=== PATIENT | male | born 1965 | race Caucasian/White ===

== ENCOUNTER → 2018-01-03 09:34 | Outpatient (CLI) | payer OTHER, SELFPAY ==
[2018-01-03 12:42] LABS: Hemoglobin A1c 5.8 % (4.2-6.3)
[2018-01-03 12:46] LABS: Albumin, Serum 3.7 g/dL (3.2-5.0); BUN 13 mg/dL (7-18); BUN/Creat Ratio 17.5 RATIO (10-20); Creatinine, Serum 0.74 mg/dL (0.70-1.30); EST Glomerular Filtration Rate 119 mL/min (>60); Est Glom Filt Rate - Afr Amer 144 mL/min (>60); Globulin 3.4 g/dL (2.2-4.2); Glucose 100 mg/dL (74-106); Protein, Total 7.1 g/dL (6.4-8.2)
[2018-01-03 12:47] LABS: ALB/GLOB Ratio 1.1 RATIO (0.9-2.4); AST(SGOT) 24 U/L (15-37); Alanine Aminotransfer ALT/SGPT 64 U/L (16-61); Alkaline Phosphatase 62 U/L (45-117); Anion Gap 9 (5-15); Calcium,Total 8.8 mg/dL (8.5-10.1); Chloride 106 mmol/L (98-107); Free T3 2.8 pg/mL (2.18-3.98); Potassium 4.3 mmol/L (3.5-5.1); Sodium Level 139 mmol/L (136-145); T4 Free Direct 1.03 ng/dL (0.76-1.46); Thyroid Stim Hormone (TSH) 1.91 uIU/mL (0.358-3.74)
== END ==
PROVIDERS: Family Provider Family Medicine; PCP Family Medicine; Visit Provider Internal Medicine Endocrinology, Diabetes & Metabolism
DX: E78.5 Hyperlipidemia, unspecified (principal); E05.90 Thyrotoxicosis, unspecified without thyrotoxic crisis or storm; R73.01 Impaired fasting glucose
CPT/HCPCS: 36415; 80053; 83036; 84439; 84443; 84481

== ENCOUNTER → 2018-07-12 15:16 | Outpatient (CLI) | payer OTHER, SELFPAY ==
[2018-07-12 16:54] LABS: T4 Total, Thyroxin 8.5 ug/dL (4.5-12.1); Thyroid Stim Hormone (TSH) 2.44 uIU/mL (0.358-3.74)
== END ==
PROVIDERS: Family Provider Family Medicine; PCP Family Medicine; Visit Provider Internal Medicine Cardiovascular Disease
DX: I48.0 Paroxysmal atrial fibrillation (principal)
CPT/HCPCS: 36415; 84436; 84443

== ENCOUNTER → 2018-07-29 12:50 | Outpatient (CLI) | payer OTHER, SELFPAY | PROVIDERS: Family Provider Family Medicine; PCP Family Medicine; Visit Provider Internal Medicine Cardiovascular Disease | DX: I48.0 Paroxysmal atrial fibrillation (principal); G47.10 Hypersomnia, unspecified | CPT/HCPCS: 93225; 93226; 93306 ==

== ENCOUNTER → 2018-08-01 12:35 | Outpatient (CLI) | payer OTHER, SELFPAY ==
[2018-08-01 13:31] LABS: Anion Gap 5 (5-15); BUN 13 mg/dL (7-18); BUN/Creat Ratio 11.9 RATIO (10-20); Calcium,Total 9.4 mg/dL (8.5-10.1); Chloride 107 mmol/L (98-107); Creatinine, Serum 1.09 mg/dL (0.70-1.30); EST Glomerular Filtration Rate 76 mL/min (>60); Est Glom Filt Rate - Afr Amer 92 mL/min (>60); Glucose 90 mg/dL (74-106); Potassium 4.5 mmol/L (3.5-5.1); Sodium Level 140 mmol/L (136-145)
== END ==
PROVIDERS: Family Provider Family Medicine; PCP Family Medicine; Visit Provider Internal Medicine Cardiovascular Disease
DX: I48.0 Paroxysmal atrial fibrillation (principal)
CPT/HCPCS: 36415; 80048

== ENCOUNTER → 2018-08-03 10:07 | Outpatient (CLI) | payer OTHER, SELFPAY ==
[2018-08-02 14:20] VITALS: BMI 41.4
== END ==
PROVIDERS: Family Provider Family Medicine; PCP Family Medicine; Visit Provider Internal Medicine Cardiovascular Disease
DX: I48.0 Paroxysmal atrial fibrillation (principal); Z53.8 Procedure and treatment not carried out for other reasons; I42.9 Cardiomyopathy, unspecified; E66.01 Morbid (severe) obesity due to excess calories; Z79.01 Long term (current) use of anticoagulants; Z79.02 Long term (current) use of antithrombotics/antiplatelets; Z79.82 Long term (current) use of aspirin; Z79.899 Other long term (current) drug therapy; Z87.891 Personal history of nicotine dependence
CPT/HCPCS: 93005; J7040

== ENCOUNTER → 2018-09-09 20:03 | Outpatient (CLI) | payer OTHER, SELFPAY | PROVIDERS: Family Provider Family Medicine; PCP Family Medicine; Visit Provider Internal Medicine Cardiovascular Disease | DX: G47.10 Hypersomnia, unspecified (principal); I48.0 Paroxysmal atrial fibrillation; E66.9 Obesity, unspecified | CPT/HCPCS: 95810 ==

== ENCOUNTER → 2018-11-01 14:24 | Outpatient (CLI) | payer OTHER, SELFPAY ==
[2018-08-02 14:20] VITALS: BMI 41.4
--- NOTE | 2018-11-01 14:30 | RAD_ITS ---
STUDY: X-RAY - RIGHT HAND REASON FOR EXAM: Pain, hyperextension injury of fingers. TECHNIQUE: 3 view(s) of the hand. COMPARISON: None. FINDINGS: Normal radiocarpal articulation. Normal distal radioulnar joint. Normal visualized carpal bones. Normal carpal articulations Normal carpometacarpal articulation of the thumb. Normal second through fifth carpometacarpal joints. Normal metacarpi. Normal metacarpophalangeal joint of the thumb. Normal interphalangeal joint of the thumb. Normal proximal and distal phalanges of the thumb. There is moderate joint space narrowing of the third metacarpophalangeal joint. Normal proximal and distal interphalangeal joints of the second through fifth fingers. Normal phalanges of the second through fifth fingers. The soft tissue structures are unremarkable. RAD/Hand Min 3 Views IMPRESSION: Arthrosis of the third metacarpophalangeal joint. No demonstrated fracture. Electronically Signed: Christopher Carnes MD at 15:00 EST Tel , Service support ,
--- OUTSIDE RECORDS SUMMARY | 2018-12-18 19:59 | XMS RPT_ITS ---
:1965 Author Organization OHIP Support Name Relationship Address Phone MOISÉS FRAGA Unavailable [address] + [place] [address] S Unavailable Unavailable Unavailable LYSSA SILVA Unavailable Unavailable + [place] [address] TOMEKA MOISÉS Unavailable [address] + [place] [address] TOMEKA LYSSA Unavailable Unavailable + [place] [address] S Unavailable Unavailable Unavailable FRAGA, MOISÉS Unavailable [address] + [place] [address] TOMEKA LYSSA Unavailable Unavailable + [place] [address] S Unavailable Unavailable Unavailable FRAGA, MOISÉS Unavailable [address] + [place] [address] FRAGA, HORTENSIA Unavailable Unavailable + [place] [address] S Unavailable Unavailable Unavailable FRAGA MOISÉS Unavailable [address] + [place] [address] TOMEKA LYSSA Unavailable . + [place] [address] S Unavailable Unavailable Unavailable FRAGA, MOISÉS Unavailable [address] + [place] [address] FRAGA, HORTENSIA Unavailable Unavailable + [place] [address] S Unavailable Unavailable Unavailable FRAGA, MOISÉS Unavailable [address] + [place] [address] FRAGA, HORTENSIA Unavailable Unavailable + [place] [address] S Unavailable Unavailable Unavailable FRAGA, MOISÉS Unavailable [address] + [place] [address] FRAGA, HORTENSIA Unavailable Unavailable + [place] [address] S Unavailable Unavailable Unavailable FRAGA, MOISÉS Unavailable [address] + [place] [address] FRAGA, HORTENSIA Unavailable Unavailable + [place] [address] S Unavailable Unavailable Unavailable FRAGA, MOISÉS Unavailable [address] + [place] [address] FRAGA, HORTENSIA Unavailable Unavailable + [place] [address] S Unavailable Unavailable Unavailable FRAGA, MOISÉS Unavailable [address] + [place] [address] FRAGA, HORTENSIA Unavailable Unavailable + [place] [address] S Unavailable Unavailable Unavailable FRAGA, MOISÉS Unavailable [address] + [place] [address] FRAGA, HORTENSIA Unavailable Unavailable + [place] [address] S Unavailable Unavailable Unavailable FRAGA, MOISÉS Unavailable [address] + [place] [address] FRAGA, HORTENSIA Unavailable . + [place] [address] S Unavailable Unavailable Unavailable FRAGA, MOISÉS Unavailable [address] + [place] [address] FRAGA, HORTENSIA Unavailable Unavailable + [place] [address] S Unavailable Unavailable Unavailable FRAGA, MOISÉS Unavailable [address] + [place] [address] FRAGA, HORTENSIA Unavailable Unavailable + [place] [address] S Unavailable Unavailable Unavailable FRAGA, MOISÉS Unavailable [address] + [place] [address] FRAGA, HORTENSIA Unavailable Unavailable + [place] [address] S Unavailable Unavailable Unavailable FRAGA, MOISÉS Unavailable [address] + [place] [address] S Unavailable Unavailable Unavailable FRAGA, MOISÉS Unavailable [address] + [place] [address] S Unavailable Unavailable Unavailable Care Team Providers Name Role Phone YEMI OTTO Attending Unavailable Danii Chaney Attending Unavailable Kate Gonzalez Referring Unavailable Danii Chaney Attending Unavailable Danii Chaney Referring Unavailable Lisa, Kate Primary Care Unavailable YEMI OTTO Attending Unavailable Lisa, Kate Primary Care Unavailable Chevy, Crowder Attending Unavailable Lisa, Kate Referring Unavailable Chevy, Regino Attending Unavailable Chevy, Regino Referring Unavailable Lisa, Kate Primary Care Unavailable Chevy, Regino Attending Unavailable Chevy, Regino Referring Unavailable Lisa, Kate Primary Care Unavailable Chevy, Regino Attending Unavailable Lisa, Kate Referring Unavailable Lisa, Kate Primary Care Unavailable Chevy, Regino Attending Unavailable Chevy, Crowder Referring Unavailable Lisa, Kate Primary Care Unavailable Chevy, Regino Attending Unavailable Lisa, Kate Primary Care Unavailable Chevy, Crowder Referring Unavailable Chevy, Regino Attending Unavailable Lisa, Kate Referring Unavailable Lisa, Kate Primary Care Unavailable Chevy, Regino Attending Unavailable Lisa, Kate Referring Unavailable Lisa, Kate Primary Care Unavailable Chevy, Regino Attending Unavailable Chevy, Regino Referring Unavailable Lisa, Kate Primary Care Unavailable Chevy, Regino Attending Unavailable Lisa, Kate Referring Unavailable Chevy, Crowder Attending Unavailable Chevy, Regino Referring Unavailable Lisa, Kate Primary Care Unavailable Paulina Tinsley Attending Unavailable Lisa, Kate Referring Unavailable Chevy, Regino Attending Unavailable Chevy, Regino Referring Unavailable Chevy, Crowder Attending Unavailable Chevy, Regino Referring Unavailable Chevy, Crowder Attending Unavailable Lisa, Kate Primary Care Unavailable PROBLEMS PROBLEMS DATE TYPE CONDITION / CODE ATTENDING STATUS SOURCE 12/05/2018 Unknown E05.90 - Chevy, Regino Active [place] Thyrotoxicosis, Community unspecified without Hospital thyrotoxic crisis or Repository storm / E05.90(ICD-10) 12/05/2018 Unknown F17.200 - Nicotine Chevy, Crowder Active [place] dependence, Community unspecified, Hospital uncomplicated / Repository F17.200(ICD-10) 12/05/2018 Unknown G47.10 - Chevy, Crowder Active [place] Hypersomnia, Community unspecified / Hospital G47.10(ICD-10) Repository 12/05/2018 Unknown Q21.1 - Atrial Chevy, Regino Active [place] septal defect / Community Q21.1(ICD-10) Hospital Repository 12/05/2018 Unknown E66.01 - Morbid Chevy, Regino Active [place] (severe) obesity due Community to excess calories / Hospital E66.01(ICD-10) Repository 12/05/2018 Unknown I48.0 - Paroxysmal ChevyRobson andersonril Active [place] atrial fibrillation Community / I48.0(ICD-10) Hospital Repository 11/01/2018 Unknown M79.641 - Pain in Ritu, Active [place] right hand / [facility] M79.641(ICD-10) Hospital Repository 11/01/2018 Unknown G56.31 - Lesion of Ritu, Active [place] radial nerve, right [facility] upper limb / Hospital G56.31(ICD-10) Repository 09/09/2018 Unknown E66.9 - Obesity, ChevyRobson andersonril Active [place] unspecified / Community E66.9(ICD-10) Hospital Repository 08/31/2018 Unknown R00.1 - Bradycardia, Robson Reeceril Active [place] unspecified / Community R00.1(ICD-10) Hospital Repository 07/29/2018 Unknown Z98.890 - Other Chevy, Crowder Active [place] specified Community postprocedural Hospital states / Repository Z98.890(ICD-10) 01/03/2018 Unknown E78.5 - [place], Active [place] Hyperlipidemia, YEMI Community unspecified / Hospital E78.5(ICD-10) Repository PROCEDURES PROCEDURES No Procedure Records FoundRESULTS RESULTS BASIC METABOLIC Collected: 12/02/2018 Status: F Source: [place] PROFILE (BMP) 4:54 PM [facility] REPOSITORY TYPE CODE TESTS RESULT OUT OF RANGE REFERENCE UNITS LAB L501.0100 74-106 mg/dL Normal GLU 84 Result Comment: Please note revised GLUCOSE reference range effective 2017. LAB L501.1000 7-18 mg/dL Normal BUN 14 LAB L501.1100 0.70-1.30 mg/dL Normal CREAT,SERUM 0.87 Result Comment: The validity of the calculated GFR AND GFRAA in patients over 70 years has not been determined. Clinical correlation is essential. LAB L501.1110 >60 mL/min Normal EST GFR 98 Result Comment: Non- GFR Calc LAB L501.1115 >60 mL/min Normal EST GFR - AA 119 Result Comment: GFR Calc LAB L501.1300 10-20 RATIO Normal BUN/CRE 16.1 LAB L501.2200 8.5-10.1 mg/dL CA Normal 9.3 LAB L501.5300 136-145 mmol/L NA Normal 143 LAB L501.5600 3.5-5.1 mmol/L K Normal 4.3 LAB L501.5900 98-107 mmol/L CL Normal 107 LAB L501.6100 21.0-32.0 mmol/L Normal CO2 27.0 LAB L501.6200 5-15 Normal GAP 9 Performed By: #### L500.2500, L501.9520 #### [facility] [address] [place], [place], [address] THYROID STIM HORMONE Collected: 12/02/2018 Status: F Source: [place] (TSH) 4:54 PM [facility] REPOSITORY TYPE CODE TESTS RESULT OUT OF RANGE REFERENCE UNITS LAB L501.9520 0.358-3.74 uIU/mL High TSH 3.90 Performed By: #### L500.2500, L501.9520 #### [facility] [address] [place], [address] CARDIOLOGY VISIT Observed: 12/02/2018 Status: F Source: [place] REPORT 4:34 PM [facility] REPOSITORY [facility] [address] [place] [address] OFFICE VISIT Date of Service: 12/02/18 MR#: [id number] Acct: [id number] Name: FRED FRAGA Rep #: [id number] : 1965 Provider: Regino Reece MD Age/Sex: 53/M [place] [facility] [place] Signed [facility] Chief Complaint: Follow up Details: FRED FRAGA, is a 53 M who presents to the office today for a follow-up visit. He is a gentleman who had presented with an episode of atrial fibrillation approximately 9 years ago and he underwent a ESTHER guided cardioversion. He was asked in a year and half ago and at that time, does get palpitations. Echocardiogram done at that time demonstrated no significant abnormalities the last echocardiogram demonstrated ejection fraction approximately 50%. He does consume a fair amount of caffeinated beverages as well as tobacco use. He also do remember that he did have some thyroid issues for which she was put on methimazole. He does get his TSH checked once a year and is followed by an military science teacher. He had previously been seen and converted back to sinus rhythm. He presented today for follow-up visit feeling well with no complaints no dizziness no diaphoresis no near syncope except for when he got upstairs here. His physical exam demonstrated an irregular regular heart rate and his electrocardiogram confirmed that he was in atrial fibrillation with a rate of 105 bpm and no acute changes. He has remained on the beta-vick as well as the aspirin and Eliquis. 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 Accompanied by: Is patient in pain?: No Allergies No Known Allergies Allergy (Verified 12/02/18 15:43) Medications Methimazole [Tapazole] 5 mg PO DAILY 10/09/13 [History Confirmed 12/02/18] apixaban 5 mg tablet 5 mg PO BID #60 tab 07/29/18 [Rx Confirmed 12/02/18] metoprolol tartrate 50 mg tablet 50 mg PO BID #60 tab 07/29/18 [Rx Confirmed 12/02/18] flecainide 100 mg tablet 100 mg PO Q12H #60 tab 12/02/18 [Rx Confirmed 12/02/18] PFS Medical History Nicotine dependence (Chronic) Patent foramen ovale (Chronic) Morbid (severe) obesity due to excess calories (Chronic) Paroxysmal atrial fibrillation (Chronic) Hyperthyroidism (Chronic) Surgical History History of cardioversion (Resolved 05/30/08) Family History Father Diabetes Hypertension Mother Diabetes Hypertension Social History Smoking Status: Current every day smoker ROS Const Const: Negative for fatigue, weakness, night sweats, excessive sweating, frequent falls, headache(s) or daytime sleepiness Eyes Eyes: Negative for loss of peripheral vision, transient loss of vision, blind spots, double vision or blurry vision ENT ENT: Positive for dizziness; negative for headache(s), balance problems, Nosebleed/epistaxis, tongue swelling or lip swelling Cardio Chest Pain: No Palpitations: No Edema: Bilateral Muscle aches with walking: None Resp Respiratory: Positive for SOB at rest and SOB with activity; negative for SOB orthopnea\SOB lying down, Cough or paroxysmal nocturnal dyspnea GI GI: Negative nausea, vomiting, heartburn, black,tarry stools or bright, red blood in stools : Negative for hematuria Musc Musc: Negative for balance problems, muscle aches/ myalgia, muscle weakness or joint pain Skin Skin: Negative non-healing lesions, unusual bruising or rash Neuro Neuro: Positive for dizziness and lightheadedness; negative for weakness, frequent falls, headache(s), double vision, orthostatic symptoms, blurry vision or lack of coordination Patricio Hematologic/Lymphatic: Negative for easy bruising or easy bleeding Endo Endo: Negative for fatigue, excessive sweating, cold intolerance, heat intolerance, increased thirst/drinking or hair loss Psych Psych: Negative for anxiety or depression Allergy Allergy/Immunology: Negative for throat swelling, Negative for tongue swelling, Negative for hives, Negative for rash, Negative for lip swelling Cardiology Exam Const Appearance: cooperative, healthy appearing, well developed, well groomed and no acute distress Nutritional Appearance: well nourished and average body habitus Orientation: alert, awake and oriented x3 Head Head: normal to inspection, normocephalic and atraumatic Ears: hearing grossly normal bilaterally and external ears normal Nose: external nose normal, nasal mucous membranes and turbinates normal, nares normal, septum normal, no nasal discharge Face and Sinus: face symmetric Mouth: oral mucosae normal, tongue normal, oropharynx normal and moist mucous membranes Teeth and gingiva: dentition normal Throat: posterior oropharynx normal, tonsils normal and uvula midline Eyes General: appearance normal, both eyes and all related structures Eyelids: eyelids normal Conjunctivae: conjunctivae normal Pupils: PERRL, normal by confrontation and accommodation normal EOM: EOM intact bilaterally Neck Neck: normal visual inspection, trachea midline and no JVD JVD: +5 Carotids: normal carotid upstroke and bounding pulses Chest Chest inspection: normal inspection of the chest, symmetric chest movement and normal respiratory effort Auscultation: Bilateral: Clear to Auscultation Cardio Palpation: normal PMI Rhythm: irregular rhythm Heart sounds: S1 normal and S2 normal GI GI: normal to inspection, soft, no hepatosplenomegaly and bowel sounds present Neuro General: alert, awake, oriented x3, no focal sensory deficit, gait normal and moves all extremities Skin Skin: no rashes or lesions noted Extremities Pulses: Normal: Right Femoral Pulse, Left Femoral Pulse, Right Dorsalis Pedis Pulse, Left Dorsalis Pedis Pulse, Right Posterior Tibial Pulse, Left Posterior Tibial Pulse, Right Radial Pulse, Left Radial Pulse Lower Extremity Edema: None: Bilateral Musculoskel Musculoskeletal: No joint tenderness Psych Psychological: normal affect Assessment AND Plan 1. Paroxysmal atrial fibrillation I48.0 Not anticoagulated Received one cardioversion at one time Plan He does have a history of paroxysmal atrial fibrillation. My recommendation at this time will be for him to continue the beta-vick but consider him for DC cardioversion. After that is performed he may benefit from an antiarrhythmic such as flecainide. We will try and arrange this over the next week or so. He can discontinue his aspirin at this time. I have also asked him to check with his military science teacher about his methimazole dose and to evaluate his thyroid function. Orders Orders: 2. Patent foramen ovale Q21.1 with bidirectional shunting per ESTHER Plan He does have a history of patent foramen ovale noted on the ESTHER. He will continue with anticoagulation. Thank you for allowing me to participate in the care of your patient. Please don't hesitate to call if any issues arise Orders Orders: Plan Detail Other Orders Orders: Other Medications New: Discontinued: Coding Level of Care Code Off vis,est,level 4 Diagnoses Paroxysmal atrial fibrillation I48.0 Patent foramen ovale Q21.1 Coding Level of Care Code Off vis,est,level 4 Diagnoses Paroxysmal atrial fibrillation I48.0 Patent foramen ovale Q21.1 Supplemental Info Supplemental Information Diagnostics Electrocardiogram 12/02/18 Echocardiogram 07/29/18 12/02/18 1444 <Electronically signed by Regino Reece MD> Date Regino Reece MD Cosigner Signature: Date (if applicable) CC: Kate Gonzalez MD 12 LEAD EKG PERFORMED Observed: 12/02/2018 Status: F Source: [place] [facility] 4:[address] [facility] [address] [place] [address] 12 Lead EKG performed by [facility] 12/02/181618 MR#: [id number] Acct: [id number] Name: FRED FRAGA Rep #: [id number] : 1965 53 From: Regino Reeec MD Attending Dr: Regino Reece MD Status: DEP AMB Ordering Dr: Regino Reece MD Date: 12/02/18 Location: [facility] Sex: M C Admitted: BMS/12 Lead EKG performed by [facility] ECG Report Interpretation Atrial fibrillation -irregular conduction - Nonspecific T-abnormality. ABNORMAL Electronically signed on 12/13/2018 at 16:21 by Regino Reece Software Version [id number] 12/13/18 1625 Date Regino Reece MD CC: Kate Gonzalez MD Date Dictated: 12/02/181618 Date Transcribed: 12/02/181618 Fur Blower Operator: CO Signed PULMONARY VISIT REPORT Observed: 11/09/2018 Status: F Source: [place] 5:59 AM [facility] [place] [address] [place] [address] OFFICE VISIT Date of Service: 11/08/18 MR#: [id number] Acct: [id number] Name: FRED FRAGA Rep #: [id number] : 1965 Provider: Demetri Parmar MD Age/Sex: 53/M Location: [facility] Status: Signed Assessment AND Plan Medications Discontinued: oxycodone Discontinued Reason: Pt no long10 mg (2 x 5 mg) PO Q4H PRN PRN 20 tabs 0RF P er taking ain HPI Sleep problems: Details: Documentation reviewed 5 pages of documentation from Dr. Reece were personally reviewed. Patient has undergone a ESTHER guided cardioversion and has an EF of approximately 50%. Patient does smoke and reportedly has had issues with her thyroid in the past Testing personally reviewed with the patient PSG (09/09/2018): Overall AHI of 42.6 events per hour with significant worsening in the supine position. Patient did have oxygen desaturations less than 88% for over 30 minutes during the sleep study and was noted to have a PLMS of 5.4 events per hour Intake Intake Visit Reasons: Sleep problems Allergies No Known Allergies Allergy (Verified 07/12/18 14:08) Medications Aspirin [Aspirin, Baby] 81 mg PO DAILY 10/09/13 [History Confirmed 08/02/18] Methimazole [Tapazole] 5 mg PO DAILY 10/09/13 [History Confirmed 08/02/18] apixaban 5 mg tablet 5 mg PO BID #60 tab 07/29/18 [Rx Confirmed 08/02/18] metoprolol tartrate 50 mg tablet 50 mg PO BID #60 tab 07/29/18 [Rx Confirmed 08/02/18] PFSH Medical History Nicotine dependence (Chronic) Patent foramen ovale (Chronic) Morbid (severe) obesity due to excess calories (Chronic) Paroxysmal atrial fibrillation (Chronic) Hyperthyroidism (Chronic) Surgical History History of cardioversion (Resolved 05/30/08) Family History Father Diabetes Hypertension Mother Diabetes Hypertension Social History Smoking Status: Current every day smoker 11/09/18 0559 <Electronically signed by Demetri Parmar MD> Date Demetri Parmar MD Cosigner Signature: Date (if applicable) CC: ORTHOPEDIC VISIT Observed: 11/03/2018 Status: F Source: [place] REPORT 3:53 PM [facility] REPOSITORY [facility] [address] [place] [address] OFFICE VISIT Date of Service: 11/01/18 MR#: [id number] Acct: [id number] Name: FRED FRAGA Rep #: [id number] : 1965 Provider: Danii Chaney DO Age/Sex: 53/M Location: [facility] Status: Signed Intake Intake Visit Reasons: right hand Chief Complaint: Dizziness and weakness and heart out of rhythm Allergies No Known Allergies Allergy (Verified 07/12/18 14:08) Medications Aspirin [Aspirin, Baby] 81 mg PO DAILY 10/09/13 [History Confirmed 08/02/18] Methimazole [Tapazole] 5 mg PO DAILY 10/09/13 [History Confirmed 08/02/18] apixaban 5 mg tablet 5 mg PO BID #60 tab 07/29/18 [Rx Confirmed 08/02/18] metoprolol tartrate 50 mg tablet 50 mg PO BID #60 tab 07/29/18 [Rx Confirmed 08/02/18] PFSH Medical History Nicotine dependence (Chronic) Patent foramen ovale (Chronic) Morbid (severe) obesity due to excess calories (Chronic) Paroxysmal atrial fibrillation (Chronic) Hyperthyroidism (Chronic) Surgical History History of cardioversion (Resolved 05/30/08) Family History Father Diabetes Hypertension Mother Diabetes Hypertension Social History Smoking Status: Current every day smoker HPI right hand: Details: FRED FRAGA is a 53 year old M here today for a new patient visit. Patient complaining top of right hand pain including numbness and tingling. He has had a couple of injuries to the top of his hand several years ago. He states he has been diagnosed with carpal tunnel syndrome, but has not had an EMG test. He is not currently taking any pain meds. He has had a cortisone injection in his right elbow for the numbness and tingling which he states has helped in the past. Ortho Exam Right Wrist/Hand Right Wrist: Yes ROM-Pronation 0-80, ROM-Flexion 0-80 and ROM-Extension 0-60 Motor: EPL: 5, FDP-2: 5, 1st Dorsal Interosseous: 5, APB: 5 Sensation: Radial: I, Ulnar: I, Median: I Right Elbow Skin/Wound: Yes CDI Contralateral Normal: Yes ROM: Yes Flexion 0-140, Extension 0, Supination 0-90 and Pronation 0-80 Sensation: Radial: I, Ulnar: I, Median: I Motor: Elbow Extension: 5, Elbow Flexion: 5, EPL: 5, FDP-2: 5, 1st Dorsal Interosseous: 5 ELBOW: radial tunnel tenderness, hand tenderness Office Procedures Ortho Injections Injections Details: Obtained consent for injection. Under sterile conditions, injected the patients right radial tunnel with 1cc bupivacaine and 1/2cc kenalog. The patient tolerated the injection well without any noted complication. Patient should call our office if redness develops, pain worsens or if they have any concerns. Office Meds [place] Performing Provider: Danii Chaney DO Administered by: Danii Chaney DO on 11/02/18 09:39 Dose Route Admin Location Lot Number Expiration DateNDC Certified Registered Dental Assistant 20 mg Tendon Sheath Iright radial [id number] 10/22/19 [id number] [facility]. nnel SQUIBB Assessment AND Plan 1. Right hand pain M79.641 Plan xrays show third finger mcp joint oa, see chart for further details. pain is mostly radicular from elbow to top of hand, curious for radial tunnel syndrome. no pain to palpation on lat epicondyle, injection will be diagnostic as well as hopefully therapeutic. if pain/numbness continues consider emg/ncs. patient aware and in agreement of plan. will call if injection doesnt help. All questions answered. Patient in agreement of plan. Personally reviewed the patient's medical history, medications, surgeries and recent exams if available. X-rays were reviewed. There is no obvious fracture, dislocation, or lucency noted. Educated on the anatomy of the hand and fingers and innervation of the nerves. Explained that he does not have carpal tunnel signs today, but he does have pain at the mcp joints from the injury. No signs of tendon disruption. Explained that he can have some nerve damage from the injury and that is causing the hypersensitivity to the hand. Gave an OT script for ultrasound. He also has radial tunnel syndrome, unrelated but present today, we can inject that today. Follow up as needed or sooner if pain, swelling, numbness or associated symptoms, or concerns develop. All questions answered. Patient in agreement of plan. Orders Orders: 2. Radial tunnel syndrome of right upper extremity G56.31 Orders Orders: Medications Discontinued: Kenalog (triamcinolone acetonide) Discontinued Rea20 mg (0.5 mL) IM ONCE 0.5 mL 0RF NS son: Office Medication has been Documented as given Coding Level of Care Code Off vis,new,level 3 Diagnoses Right hand pain M79.641 Radial tunnel syndrome of right upper extremity G56.31 11/03/18 1553 <Electronically signed by Danii Chaney DO> Date Danii Chaney DO Cosigner Signature: Date (if applicable) CC: HAND MIN 3 VIEWS Observed: 11/01/2018 Status: F Source: [place] 2:26 PM [facility] REPOSITORY [facility] Imaging Services [address] [place] [address] Hand Min 3 Views MR#: [id number] Acct: [id number] Name: FRED FRAGA Rep #: [id number] : 1965 M 53 From: Christopher Carnes MD PCP: Kate Gonzalez MD Status: REG CLI Study: Hand Min 3 Views Date of Exam: 11/01/18 Exam# [id number] Ordering Dr: Danii Chaney DO STUDY: X-RAY - RIGHT HAND REASON FOR EXAM: Pain, hyperextension injury of fingers. TECHNIQUE: 3 view(s) of the hand. COMPARISON: None. FINDINGS: Normal radiocarpal articulation. Normal distal radioulnar joint. Normal visualized carpal bones. Normal carpal articulations Normal carpometacarpal articulation of the thumb. Normal second through fifth carpometacarpal joints. Normal metacarpi. Normal metacarpophalangeal joint of the thumb. Normal interphalangeal joint of the thumb. Normal proximal and distal phalanges of the thumb. There is moderate joint space narrowing of the third metacarpophalangeal joint. Normal proximal and distal interphalangeal joints of the second through fifth fingers. Normal phalanges of the second through fifth fingers. The soft tissue structures are unremarkable. RAD/Hand Min 3 Views IMPRESSION: Arthrosis of the third metacarpophalangeal joint. No demonstrated fracture. Electronically Signed: Christopher Carnes MD at 15:00 EST Tel , Service support , CC: Danii Chaney DO; Kate Gonzalez MD Fur Blower Operator: Signed CNCO Observed: 10/21/2018 Status: COMPLETED Source: [facility] 12:00 AM [facility] REPOSITORY Letter Text Yemi Otto MD [facility] [address] [place] [address] Fred Fraga October 21, 2018 Fred Fraga [address] [facility] [address] Dear Fred Fraga: Due to a change in your provider's schedule, it has become necessary to reschedule the following appointment: Yemi Otto MD Date: 12/30/18 We apologize for any inconvenience to you, however your provider would still like to see you. Please call us at [phone] to reschedule your appointment. Sincerely, Appointment Staff CARDIOLOGY VISIT Observed: 08/25/2018 Status: F Source: [place] REPORT 3:47 PM [facility] REPOSITORY [facility] [address] [place] [address]. [address] [place] [address] OFFICE VISIT Date of Service: 08/01/18 MR#: [id number] Acct: [id number] Name: FRED FRAGA Rep #: [id number] : 1965 Provider: Regino Reece MD Age/Sex: 52/M Location: [facility] Status: Signed [facility] Chief Complaint: Dizziness and weakness and heart out of rhythm Details: FRED FRAGA, is a 52 M who presents to the office today for a follow-up visit. He is a gentleman who had presented with an episode of atrial fibrillation approximately 9 years ago and he underwent a ESTHER guided cardioversion. He was asked in a year and half ago and at that time, does get palpitations. Echocardiogram done at that time demonstrated no significant abnormalities the last echocardiogram demonstrated ejection fraction approximately 50%. He does consume a fair amount of caffeinated beverages as well as tobacco use. He also do remember that he did have some thyroid issues for which she was put on methimazole. He does get his TSH checked once a year and is followed by an military science teacher. He is also had some trouble sleeping which has been of recent onset. He also denies any snoring. He says that over the last few weeks he noticed that his heart rate was irregular and he was feeling very tired as well as having some dizziness. He nonetheless went to the holiday and was not able to cope as well. He therefore called the office, was started on Eliquis as well as beta-vick but has not felt well. He presents for us to evaluate him. He has had no neck arm or jaw discomfort suggest angina. His physical exam today demonstrates clear lung boss irregular rate and rhythm and no pedal edema. 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 Allergies No Known Allergies Allergy (Verified 07/12/18 14:08) Medications Aspirin [Aspirin, Baby] 81 mg PO DAILY 10/09/13 [History Confirmed 08/02/18] Methimazole [Tapazole] 5 mg PO DAILY 10/09/13 [History Confirmed 08/02/18] apixaban 5 mg tablet 5 mg PO BID #60 tab 07/29/18 [Rx Confirmed 08/02/18] metoprolol tartrate 50 mg tablet 50 mg PO BID #60 tab 07/29/18 [Rx Confirmed 08/02/18] [facility] Medical History Nicotine dependence (Chronic) Patent foramen ovale (Chronic) Morbid (severe) obesity due to excess calories (Chronic) Paroxysmal atrial fibrillation (Chronic) Hyperthyroidism (Chronic) Surgical History History of cardioversion (Resolved 05/30/08) Family History Father Diabetes Hypertension Mother Diabetes Hypertension Social History Smoking Status: Current every day smoker ROS Const Const: Positive for fatigue and weakness; negative for difficulty sleeping, frequent falls, excessive sweating or headache(s) Eyes Eyes: Negative for loss of peripheral vision, transient loss of vision, blurry vision, tunnel vision or double vision ENT ENT: Negative for headache(s), dizziness, Nosebleed/epistaxis or balance problems Cardio Chest Pain: No Palpitations: Yes Edema: Bilateral (Trace BLE ankle edema) Muscle aches with walking: None Resp Respiratory: Positive for SOB with activity (Dizzy and SOB with little activity); negative for SOB at rest, SOB orthopnea\SOB lying down, paroxysmal nocturnal dyspnea or Cough GI GI: Negative nausea, heartburn, black,tarry stools or vomiting : Negative for hematuria Musc Musc: Negative for balance problems, muscle aches/ myalgia, muscle weakness or joint pain Skin Skin: Negative non-healing lesions, unusual bruising or rash Neuro Neuro: Positive for weakness; negative for frequent falls, headache(s), blurry vision, double vision, dizziness, lightheadedness, orthostatic symptoms, near syncope, syncope or lack of coordination Patricio Hematologic/Lymphatic: Negative for easy bruising or easy bleeding Endo Endo: Positive for fatigue; negative for excessive sweating or increased thirst/drinking Psych Psych: Negative for anxiety or depression Allergy Allergy/Immunology: Negative for hives, Negative for rash Cardiology Exam Const Appearance: cooperative, healthy appearing, well developed, well groomed and no acute distress Nutritional Appearance: well nourished and average body habitus Orientation: alert, awake and oriented x3 Head Head: normal to inspection, normocephalic and atraumatic Ears: hearing grossly normal bilaterally and external ears normal Nose: external nose normal, nasal mucous membranes and turbinates normal, nares normal, septum normal, no nasal discharge Face and Sinus: face symmetric Mouth: oral mucosae normal, tongue normal, oropharynx normal and moist mucous membranes Teeth and gingiva: dentition normal Throat: posterior oropharynx normal, tonsils normal and uvula midline Eyes General: appearance normal, both eyes and all related structures Eyelids: eyelids normal Conjunctivae: conjunctivae normal Pupils: PERRL, normal by confrontation and accommodation normal EOM: EOM intact bilaterally Neck Neck: normal visual inspection, trachea midline and no JVD JVD: +5 Carotids: normal carotid upstroke and bounding pulses Chest Chest inspection: normal inspection of the chest, symmetric chest movement and normal respiratory effort Auscultation: Bilateral: Clear to Auscultation Cardio Palpation: normal PMI Rhythm: irregular rhythm Heart sounds: S1 normal and S2 normal GI GI: normal to inspection, soft, no hepatosplenomegaly and bowel sounds present Neuro General: alert, awake, oriented x3, no focal sensory deficit, gait normal and moves all extremities Skin Skin: no rashes or lesions noted Extremities Pulses: Normal: Right Femoral Pulse, Left Femoral Pulse, Right Dorsalis Pedis Pulse, Left Dorsalis Pedis Pulse, Right Posterior Tibial Pulse, Left Posterior Tibial Pulse, Right Radial Pulse, Left Radial Pulse Lower Extremity Edema: None: Bilateral Musculoskel Musculoskeletal: No joint tenderness Psych Psychological: normal affect Assessment AND Plan 1. Paroxysmal atrial fibrillation I48.0 Not anticoagulated Received one cardioversion at one time Brett Reece MD She does have a history of paroxysmal atrial fibrillation his last echocardiogram demonstrated an ejection fraction of 50%. He has been started on anticoagulation with Eliquis. Due to his significant symptoms my recommendation will be for us to expedite it with a ESTHER guided cardioversion. We would perform the above within the next 48-72 hours. There is benefits alternatives been explained to him he understands and agrees to proceed. He will continue on his current medications in the meantime. Orders Orders: 2. Cardiomyopathy, unspecified type I42.9 Brett Reece MD He does have a history of a mild cardiomyopathy with an estimated ejection fraction of 50% and global hypokinesis. 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 Depending on the findings after the cardioversion further recommendations will be made. Thank you for allowing me to participate in the care of your patient. Please don't hesitate to call if any issues arise Plan Detail Follow Up 3 Months Coding Level of Care Code Off vis,est,level 3 Diagnoses Paroxysmal atrial fibrillation I48.0 Cardiomyopathy, unspecified type I42.9 Cardiomyopathy type: unspecified Coding Level of Care Code Off vis,est,level 3 Diagnoses Paroxysmal atrial fibrillation I48.0 Cardiomyopathy, unspecified type I42.9 Cardiomyopathy type: unspecified 08/04/18 1037 <Electronically signed by Regino Reece MD> Date Regino Reece MD 08/25/18 1547<Electronically signed by Olga GHOSH> Cosigner Signature: Date (if applicable) Olga Claire CC: Kate Gonzalez MD BASIC METABOLIC Collected: 08/01/2018 Status: F Source: [place] PROFILE (BMP) 12:45 PM [facility] REPOSITORY TYPE CODE TESTS RESULT OUT OF RANGE REFERENCE UNITS LAB L501.0100 74-106 mg/dL Normal GLU 90 Result Comment: Please note revised GLUCOSE reference range effective 2017. LAB L501.1000 7-18 mg/dL Normal BUN 13 LAB L501.1100 0.70-1.30 mg/dL Normal CREAT,SERUM 1.09 Result Comment: The validity of the calculated GFR AND GFRAA in patients over 70 years has not been determined. Clinical correlation is essential. LAB L501.1110 >60 mL/min Normal EST GFR 76 Result Comment: Non- GFR Calc LAB L501.1115 >60 mL/min Normal EST GFR - AA 92 Result Comment: GFR Calc LAB L501.1300 10-20 RATIO Normal BUN/CRE 11.9 LAB L501.2200 8.5-10.1 mg/dL CA Normal 9.4 LAB L501.5300 136-145 mmol/L NA Normal 140 LAB L501.5600 3.5-5.1 mmol/L K Normal 4.5 Result Comment: Slight Hemolysis, Result may be falsely increased. LAB L501.5900 98-107 mmol/L Normal CL 107 LAB L501.6100 21.0-32.0 mmol/L Normal CO2 28.0 LAB L501.6200 5-15 Normal 5 GAP Performed By: #### L500.2500 #### [facility] [address] [place], [address] ECHOCARDIOGRAM COMPLETE Observed: 08/01/2018 Status: F Source: [place] 8:31 AM [facility] REPOSITORY [facility] Cardiovascular Services [address] [place] [address] Echo Complete 07/29/18 1252 MR#: [id number] Acct: [id number] Name: FRED FRAGA Rep #: [id number] : 1965 52 From: Regino Reece MD Attending Dr: Regino Reece MD Status: REG CLI Ordering Dr: Regino Reece MD Date: 07/29/18 Location: [facility] Sex: M C Admitted: Reason For Study: ARRYTHMIA Procedure This was a 2D Doppler, Color Flow transthoracic echocardiogram. Exam performed in department. Left Ventricle Normal LV size. Left ventricular systolic function is lower limits of normal. The estimated ejection fraction is 50 %. Unable to assess diastolic dysfunction due to arrhythmia. There is borderline global hypokinesis of the left ventricle. Right Ventricle Normal RV size. Normal systolic function. Atria Normal left atrium. Normal right atrium. Mitral Valve Normal mitral valve. Tricuspid Valve Normal tricuspid valve. Mild tricuspid valve insufficiency. Aortic Valve The aortic valve is not well visualized. Pulmonic Valve Normal pulmonic valve. Great Vessels Normal aortic root. The pulmonary artery is normal size. Normal inferior vena cava. Pericardium/Pleural No pericardial effusion. MMode/2D Measurements AND Calculations LVIDd: 5.0 cm IVSd: 1.1 cm Ao root diam: 3.4 cm LVIDs: 3.4 cm LVPWd: 1.2 cm LA dimension: 3.6 cm FS: 31.8 % LAV(MOD-bp): 50.3 ml LVAd ap4: 44.2 cm2 SV(MOD-sp4): 92.8 ml LAV(MOD-bp) Indexed: 19.5 ml/m2 EDV(MOD-sp4): 180.5 ml LAV(MOD-sp2): 47.6 ml EDV(sp4-el): 189.4 ml LAV(MOD-sp4): 47.6 ml LVAs ap4: 28.2 cm2 ESV(MOD-sp4): 87.7 ml ESV(sp4-el): 92.6 ml EF(MOD-sp4): 51.4 % EF(sp4-el): 51.1 % SV(sp4-el): 96.7 ml LA A4 area: 18.2 cm2 RA A4 area: 17.4 cm2 Doppler Measurements AND Calculations MV E max dara: 75.3 cm/sec Ao V2 max: 140.1 cm/sec LV V1 max: 94.4 cm/sec Ao max P.9 mmHg LV V1 max P.6 mmHg TR max dara: 191.1 cm/sec TR max P.6 mmHg Interpretation Summary Normal LV size. Left ventricular systolic function is lower limits of normal. The estimated ejection fraction is 50 %. Unable to assess diastolic dysfunction due to arrhythmia. Mild tricuspid valve insufficiency. The study was technically difficult. Ordering Physician: Regino Reece Referring Physician: KATE GONZALEZ Performed By: Mary Grace Kendrick RDCS 08/01/18 0830 Date Regino Reece MD CC: Regino Reece MD; Kate Gonzalez MD Date Dictated: 07/29/18 1252 Date Transcribed: 08/01/18829 Fur Blower Operator: Signed 12 LEAD EKG PERFORMED Observed: 07/29/2018 Status: F Source: [place] BY [facility] 2:08 PM [facility] REPOSITORY [address] [place] [address] 12 Lead EKG performed by [facility] 07/29/18 1407 MR#: [id number] Acct: [id number] Name: FRED FRAGA Rep #: [id number] : 1965 52 From: Regino Reece MD Attending Dr: Regino Reece MD Status: DEP AMB Ordering Dr: Regino Reece MD Date: 07/29/18 [place] [facility] Sex: M C Admitted: [facility]/12 Lead EKG performed by [facility] ECG Report Interpretation Atrial fibrillation ABNORMAL RHYTHMElectronically signed on 12/13/2018 at 16:21 by Regino Reece 8digits Software Version [id number] 12/13/18 5745 Date Regino Reece MD CC: Kate Gonzalez MD Date Dictated: 07/29/181406 Date Transcribed: 07/29/181406 Fur Blower Operator: CO Signed CARDIOLOGY VISIT Observed: 07/12/2018 Status: F Source: [place] REPORT 4:16 PM [facility] REPOSITORY [facility] [address] [place] [address] OFFICE VISIT Date of Service: 07/12/18 MR#: [id number] Acct: [id number] Name: FRED FRAGA Rep #: [id number] : 1965 Provider: Regino Reece MD Age/Sex: 52/M [place] [facility] [place]: Signed HPI HPI Chief Complaint: Follow up Details: FRED FRAGA, is a 52 M who presents to the office today for a follow-up visit. He is a gentleman who had presented with an episode of atrial fibrillation approximately 9 years ago and he underwent a ESTHER guided cardioversion. He was asked in a year and half ago and at that time, does get palpitations. Says that he is recently gotten so that his palliative needs. Echocardiogram done at that time demonstrated no significant abnormalities the last echocardiogram demonstrated ejection fraction approximately 50%. He does consume a fair amount of caffeinated beverages as well as tobacco use. He also do remember that he did have some thyroid issues for which she was put on methimazole. He does get his TSH checked once a year and is followed by an military science teacher. He is also had some trouble sleeping which has been of recent onset. He also denies any snoring. He has had no neck arm or jaw discomfort suggest angina. His physical exam today demonstrates clear lung boss regular rate and rhythm and no pedal edema his electrocardiogram demonstrates normal sinus rhythm with a rate of 84 bpm no acute changes. 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: No Accompanied by: Is patient in pain?: Yes Allergies No Known Allergies Allergy (Verified 07/12/18 14:08) Medications Aspirin [Aspirin, Baby] 81 mg PO DAILY 10/09/13 [History Confirmed 07/12/18] Methimazole [Tapazole] 5 mg PO DAILY 10/09/13 [History Confirmed 07/12/18] PFSH Medical History Patent foramen ovale (Chronic) Morbid (severe) obesity due to excess calories (Chronic) Paroxysmal atrial fibrillation (Chronic) Hyperthyroidism (Chronic) Surgical History History of cardioversion (Chronic) Family History Father Diabetes Hypertension Mother Diabetes Hypertension Social History Smoking Status: Former smoker ROS Const Const: Negative for fatigue, weakness, night sweats, excessive sweating, frequent falls, headache(s) or daytime sleepiness Eyes Eyes: Negative for loss of peripheral vision, transient loss of vision, blind spots, double vision or blurry vision ENT ENT: Positive for dizziness; negative for headache(s), balance problems, Nosebleed/epistaxis, tongue swelling or lip swelling Cardio Chest Pain: No Palpitations: Yes Edema: Bilateral Muscle aches with walking: None Resp Respiratory: Negative for SOB at rest, SOB orthopnea\SOB lying down, Cough, paroxysmal nocturnal dyspnea or SOB with activity GI GI: Negative nausea, vomiting, heartburn, black,tarry stools or bright, red blood in stools : Negative for hematuria Musc Musc: Negative for balance problems, muscle aches/ myalgia, muscle weakness or joint pain Skin Skin: Negative non-healing lesions, unusual bruising or rash Neuro Neuro: Positive for dizziness and lightheadedness; negative for weakness, frequent falls, headache(s), double vision, orthostatic symptoms, blurry vision or lack of coordination Patricio Hematologic/Lymphatic: Negative for easy bruising or easy bleeding Endo Endo: Negative for fatigue, excessive sweating, cold intolerance, heat intolerance, increased thirst/drinking or hair loss Psych Psych: Negative for anxiety or depression Allergy Allergy/Immunology: Negative for throat swelling, Negative for tongue swelling, Negative for hives, Negative for rash, Negative for lip swelling Cardiology Exam Const Appearance: cooperative, healthy appearing, well developed, well groomed and no acute distress Nutritional Appearance: well nourished and average body habitus Orientation: alert, awake and oriented x3 Head Head: normal to inspection, normocephalic and atraumatic Ears: hearing grossly normal bilaterally and external ears normal Nose: external nose normal, nasal mucous membranes and turbinates normal, nares normal, septum normal, no nasal discharge Face and Sinus: face symmetric Mouth: oral mucosae normal, tongue normal, oropharynx normal and moist mucous membranes Teeth and gingiva: dentition normal Throat: posterior oropharynx normal, tonsils normal and uvula midline Eyes General: appearance normal, both eyes and all related structures Eyelids: eyelids normal Conjunctivae: conjunctivae normal Pupils: PERRL, normal by confrontation and accommodation normal EOM: EOM intact bilaterally Neck Neck: normal visual inspection, trachea midline and no JVD JVD: +5 Carotids: normal carotid upstroke and bounding pulses Chest Chest inspection: normal inspection of the chest, symmetric chest movement and normal respiratory effort Auscultation: Bilateral: Clear to Auscultation Cardio Palpation: normal PMI Rate: regular rate Rhythm: regular rhythm Heart sounds: S1 normal, S2 normal and normal, physiologic split S2; negative rub, gallop or murmur GI GI: normal to inspection, soft, no hepatosplenomegaly and bowel sounds present Neuro General: alert, awake, oriented x3, no focal sensory deficit, gait normal and moves all extremities Skin Skin: no rashes or lesions noted Extremities Pulses: Normal: Right Femoral Pulse, Left Femoral Pulse, Right Dorsalis Pedis Pulse, Left Dorsalis Pedis Pulse, Right Posterior Tibial Pulse, Left Posterior Tibial Pulse, Right Radial Pulse, Left Radial Pulse Lower Extremity Edema: None: Bilateral Musculoskel Musculoskeletal: No joint tenderness Psych Psychological: normal affect Assessment AND Plan 1. Paroxysmal atrial fibrillation I48.0 Not anticoagulated Received one cardioversion at one time Plan He possibly has paroxysmal atrial fibrillation. He has not had any recurrences in over 5 years. My recommendation at this time would be to try and find some underlying etiologies. I would recommend a 48 hour Holter monitor to try and characterize the above, obtain TSH, obtain a sleep study, and also obtain an echocardiogram to assess his left ventricular function. In addition I strongly urged him to resist tobacco use, reduce the amount of caffeinated beverages that he consumes as well as alcohol. I have stressed the above to him and I will like to see him again in a month or so after the results are obtained and further recommendations made. Thank you for allowing me to participate in the care of your patient. 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) Coding Level of Care Code Off vis,est,level 4 Diagnoses Paroxysmal atrial fibrillation I48.0 Coding Level of Care Code Off vis,est,level 4 Diagnoses Paroxysmal atrial fibrillation I48.0 07/12/18 1616 <Electronically signed by Regino Reece MD> Date Regino Reece MD Cosigner Signature: Date (if applicable) CC: Kate Gonzalez MD T4 TOTAL, THYROXIN Collected: 07/12/2018 Status: F Source: [place] 3:21 PM [facility] REPOSITORY TYPE CODE TESTS RESULT OUT OF RANGE REFERENCE UNITS LAB L501.9310 4.5-12.1 ug/dL T4 Normal THYROXIN 8.5 Performed By: #### L501.9310, L501.9520 #### [facility] [address] [place], [place], [id number] THYROID STIM HORMONE Collected: 07/12/2018 Status: F Source: [place] (TSH) 3:21 PM [facility] REPOSITORY TYPE CODE TESTS RESULT OUT OF RANGE REFERENCE UNITS LAB L501.9520 0.358-3.74 uIU/mL Normal TSH 2.44 Performed By: #### L501.9310, L501.9520 #### [facility] [address] [place], [place], [id number] 12 LEAD EKG PERFORMED Observed: 07/12/2018 Status: F Source: [place] [facility] 2:07 PM [facility] REPOSITORY [facility] [address] [place] [address] 12 Lead EKG performed by [facility] 07/12/18 1406 MR#: [id number] Acct: [id number] Name: FRED FRAGA Rep #: [id number] : 1965 52 From: Regino Reece MD Attending Dr: Regino Reece MD Status: DEP AMB Ordering Dr: Regino Reece MD Date: 07/12/18 Location: [facility] Sex: M C Admitted: [facility]/12 Lead EKG performed by [facility] ECG Report Interpretation Atrial Rhythm P:QRS - 1:1, Abnormal P axis, H Rate 84- Nonspecific T-abnormality. ABNORMAL Electronically signed on 12/13/2018 at 16:21 by Regino Reece [employer] Software Version [id number] 12/13/18 1625 Date Regino Reece MD CC: Kate Gonzalez MD Date Dictated: 07/12/181405 Date Transcribed: 07/12/181405 Fur Blower Operator: CO Signed HEMOGLOBIN A1C Collected: 01/03/2018 Status: F Source: [place] 9:38 AM [facility] REPOSITORY Order Comment: DR. TREVINO ORDERED A1C DR. OTTO ORDER TSH,FT4,FT3,CMP TYPE CODE TESTS RESULT OUT OF RANGE REFERENCE UNITS LAB L501.9985 4.2-6.3 % Normal HGB A1C 5.8 Performed By: #### L501.9985 #### [facility] [address] [place], [address] COMPREHENSIVE METABOLIC Collected: 01/03/2018 Status: F Source: [place] PROFIL 9:38 AM [facility] REPOSITORY Order Comment: DR. TREVINO ORDERED A1C DR. OTTO ORDER TSH,FT4,FT3,CMP TYPE CODE TESTS RESULT OUT OF RANGE REFERENCE UNITS LAB L501.0100 74-106 mg/dL Normal GLU 100 Result Comment: Fasting Glucose result from 100 to 125 mg/dL suggests IMPAIRED HOMEOSTASIS per A.D.A. criteria. Please note revised GLUCOSE reference range effective 2017. LAB L501.1000 7-18 mg/dL Normal BUN 13 LAB L501.1100 0.70-1.30 mg/dL Normal CREAT,SERUM 0.74 Result Comment: The validity of the calculated GFR AND GFRAA in patients over 70 years has not been determined. Clinical correlation is essential. LAB L501.1110 >60 mL/min Normal EST GFR 119 Result Comment: Non- GFR Calc LAB L501.1115 >60 mL/min Normal EST GFR - AA 144 Result Comment: GFR Calc LAB L501.1300 10-20 RATIO Normal BUN/CRE 17.5 LAB L501.1500 6.4-8.2 g/dL T Normal PROT 7.1 LAB L501.1800 3.2-5.0 g/dL Normal ALB 3.7 LAB L501.1950 2.2-4.2 g/dL Normal GLOB 3.4 LAB L501.2000 0.9-2.4 RATIO Normal A/G 1.1 LAB L501.2200 8.5-10.1 mg/dL CA Normal 8.8 LAB L501.4100 15-37 U/L Normal AST 24 LAB L501.4305 45-117 U/L Normal ALK P 62 LAB L501.4405 16-61 U/L High ALT 64 Result Comment: Please note revised ALT reference range effective 2017. LAB L501.4600 0.20-1.00 mg/dL High T BILI 1.10 LAB L501.5300 136-145 mmol/L Normal NA 139 LAB L501.5600 3.5-5.1 mmol/L Normal K 4.3 LAB L501.5900 98-107 mmol/L Normal CL 106 LAB L501.6100 21.0-32.0 mmol/L Normal CO2 24.0 LAB L501.6200 5-15 Normal GAP 9 Performed By: #### L500.4050, L501.69836, L501.9520, L506.0400 #### [facility] [address] [place], [address] FREE T3 Collected: 01/03/2018 Status: F Source: KOST[place] 9:38 AM [facility] REPOSITORY Order Comment: DR. TREVINO ORDERED A1C DR. OTTO ORDER TSH,FT4,FT3,CMP TYPE CODE TESTS RESULT OUT OF RANGE REFERENCE UNITS LAB L501.99950 2.18-3.98 pg/mL Normal FREE T3 2.8 Performed By: #### L500.4050, L501.79497, L501.9520, L506.0400 #### [facility] [address] [place], [address] THYROID STIM HORMONE Collected: 01/03/2018 Status: F Source: KOSTAS (TSH) 9:38 AM [facility] REPOSITORY Order Comment: DR. TREVINO ORDERED A1C DR. OTTO ORDER TSH,FT4,FT3,CMP TYPE CODE TESTS RESULT OUT OF RANGE REFERENCE UNITS LAB L501.9520 0.358-3.74 uIU/mL Normal TSH 1.91 Performed By: #### L500.4050, L501.38887, L501.9520, L506.0400 #### [facility] [address] [place], [address] T4 FREE DIRECT Collected: 01/03/2018 Status: F Source: TIOGA 9:38 AM [facility] REPOSITORY Order Comment: DR. TREVINO ORDERED A1C DR. OTTO ORDER TSH,FT4,FT3,CMP TYPE CODE TESTS RESULT OUT OF RANGE REFERENCE UNITS LAB L506.0400 0.76-1.46 ng/dL Normal T4 FREE 1.03 DIRECT Performed By: #### L500.4050, L501.87507, L501.9520, L506.0400 #### [facility] [address] 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 He is treated with methimazole 5 mg daily, failed remission in 2008. He is feeling fine. His weight is stable, he says. He notes no neck fullness. No diplopia. He chews tobacco. Denies alcohol use. NKDA. Is working on losing weight. Some fatigue, mild dysphagia. Denies daytime hypersomnolence. Current Outpatient Prescriptions on File Prior to Visit: metHIMazole (TAPAZOLE) 5 mg tablet Take 1 tablet by mouth once daily. cyanocobalamin (VITAMIN B-12) 1,000 mcg tab Take 1,000 mcg by mouth once daily. [place]-3 Fatty Acids-Vitamin E (FISH OIL) 1,000 mg cap Take 1 capsule by mouth. aspirin(ECOTRIN LOW STRENGTH 81 MG TAB) Take one (1) tablet daily. Review of patient's allergies indicates: No Known Allergies Review of systems: Patient notes no weight gain, fever, fatigue, weakness, change in balance or sensation, visual problems, hearing changes, dizziness, trouble swallowing, nasal difficulties, shortness of breath, chest pain, change in exertional tolerance, foot or leg problems, skin lesions, abdominal pain, diarrhea, constipation, urinary problems, incontinence, back pain, joint pains, anxiety, depression, (+) insomnia. Remainder of review of systems was unremarkable. BP 101/70 Pulse 80 Ht 187.3 cm (6' 1.75) Wt (!) 140.2 kg (309 lb) SpO2 96% BMI 39.94 kg/m2 Weight up 3 pounds since 12/2015. Healthy-appearing obese (BMI > 30) male in no distress, normal vocal quality. Blood pressure normal. Skin: Skin color, texture, turgor normal, no suspicious rashes or lesions Head: normocephalic, no masses, lesions, tenderness or abnormalities Eyes: Anicteric sclera. Pupils are equally round. Extraocular movements are intact. Ears: not examined Nose/Sinuses: Nares normal. No drainage or sinus tenderness. Oropharynx: Lips, mucosa, and tongue normal, teeth and gums not examined. Neck: Supple, no adenopathy; thick neck, but no palpable thyroid enlargement. Lungs: Breathing unlabored. Heart: RRR. No ectopy Abdomen: deferred Extremities: No deformities, edema, skin discoloration, clubbing or cyanosis. Good capillary refill. Musculoskeletal: Spine range of motion not tested. Muscular strength intact, No joint swelling, deformity, or tenderness Neuro: Gait normal. Sensation grossly intact. No recent lab results. IMPRESSION: ? Graves disease - check TFTs on the current methimazole dose, has failed remission in the past, continue low-dose methimazole. ? Hyperlipidemia - check fasting lipid panel ? Impaired fasting glucose - check fasting CMP ? Obesity - urged weight loss efforts, more exercise PLAN: ? Repeat TSH, with free T4, fasting CMP, lipid panel ? Refilled methimazole prescription ? Will call with results, will adjust methimazole dose if necessary ? Work on losing weight. ? Avoid dairy products. ? 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 He is treated with methimazole 5 mg daily, failed remission in 2008. He is feeling fine. His weight is stable, he says. He notes no neck fullness. No diplopia. He chews tobacco. Denies alcohol use. NKDA. Is working on losing weight. Some fatigue, mild dysphagia. Denies daytime hypersomnolence. Current Outpatient Prescriptions on File Prior to Visit: metHIMazole (TAPAZOLE) 5 mg tablet Take 1 tablet by mouth once daily. cyanocobalamin (VITAMIN B-12) 1,000 mcg tab Take 1,000 mcg by mouth once daily. [place]-3 Fatty Acids-Vitamin E (FISH OIL) 1,000 mg cap Take 1 capsule by mouth. aspirin(ECOTRIN LOW STRENGTH 81 MG TAB) Take one (1) tablet daily. Review of patient's allergies indicates: No Known Allergies Review of systems: Patient notes no weight gain, fever, fatigue, weakness, change in balance or sensation, visual problems, hearing changes, dizziness, trouble swallowing, nasal difficulties, shortness of breath, chest pain, change in exertional tolerance, foot or leg problems, skin lesions, abdominal pain, diarrhea, constipation, urinary problems, incontinence, back pain, joint pains, anxiety, depression, (+) insomnia. Remainder of review of systems was unremarkable. BP 101/70 Pulse 80 Ht 187.3 cm (6' 1.75ANDquot;) Wt (!) 140.2 kg (309 lb) SpO2 96% BMI 39.94 kg/m2 Weight up 3 pounds since 12/2015. Healthy-appearing obese (BMI ANDgt; 30) male in no distress, normal vocal quality. Blood pressure normal. Skin: Skin color, texture, turgor normal, no suspicious rashes or lesions Head: normocephalic, no masses, lesions, tenderness or abnormalities Eyes: Anicteric sclera. Pupils are equally round. Extraocular movements are intact. Ears: not examined Nose/Sinuses: Nares normal. No drainage or sinus tenderness. Oropharynx: Lips, mucosa, and tongue normal, teeth and gums not examined. Neck: Supple, no adenopathy; thick neck, but no palpable thyroid enlargement. Lungs: Breathing unlabored. Heart: RRR. No ectopy Abdomen: deferred Extremities: No deformities, edema, skin discoloration, clubbing or cyanosis. Good capillary refill. Musculoskeletal: Spine range of motion not tested. Muscular strength intact, No joint swelling, deformity, or tenderness Neuro: Gait normal. Sensation grossly intact. No recent lab results. IMPRESSION: ? Graves disease - check TFTs on the current methimazole dose, has failed remission in the past, continue low-dose methimazole. ? Hyperlipidemia - check fasting lipid panel ? Impaired fasting glucose - check fasting CMP ? Obesity - urged weight loss efforts, more exercise PLAN: ? Repeat TSH, with free T4, fasting CMP, lipid panel ? Refilled methimazole prescription ? Will call with results, will adjust methimazole dose if necessary ? Work on losing weight. ? Avoid dairy products. ? Return in 12 months, sooner prn MD Yemi Santiago MD, MD 12/20/2017 2:15 PM Signed Work on losing weight. Avoid dairy products. Get labs done at Dr. Gonzalez's. Will call with results. See me again in 12 months. Referring Provider: SELF [200] Allergies As of Date: 12/20/2017 (No Known Allergies) Date Reviewed: 12/20/2017 Reviewed by: Jessi Coffman Ma - Fully Assessed Reason for Visit: Thyroid Problem [110] Primary Visit Diagnosis:Class 2 severe obesity due to excess calories with serious comorbidity and body mass index (BMI) of 39.0 to 39.9 in adult (HCC) [E66.01, Z68.39] Other Visit Diagnoses:Graves disease [E05.00] Impaired fasting glucose [R73.01] Pure hypercholesterolemia [E78.00] Prescriptions as of 12/20/2017 Sig: METHIMAZOLE 5 MG TABLET Take 1 tablet by mouth once d* CYANOCOBALAMIN (VIT B-12) 1,0* Take 1,000 mcg by mouth once * [place]-3 FATTY ACIDS-VITAMIN E* Take 1 capsule by mouth. ECOTRIN LOW STRENGTH 81 MG TA* Take one (1) tablet daily. Medication notes this encounter PANTOPRAZOLE 40 MG TABLET,DELAYED RELEASE >> Jessi Coffman Ma 12/20/2017 1:46 PM >> JESSI COFFMAN MA WedDec 20, 2017 1:46 PM Not taking Problem List As Of Date 12/20/2017 Noted Resolved Abn findings-lung field [793.1] INVALID FOR*12/06/2010 Graves disease [E05.00] INVALID FOR* Dysphagia [R13.10] INVALID FOR*01/02/2016 Irritable bowel syndrome with diarrhea [K58.0] INVALID FOR* Diarrhea [R19.7] INVALID FOR*10/02/2015 Hyperlipidemia [E78.5] INVALID FOR* Elevated liver function tests [R79.89] INVALID FOR* Impaired fasting glucose [R73.01] INVALID FOR* Obesity [E66.9] INVALID FOR* Other instructions from your clinician: Work on losing weight. Avoid dairy products. Get labs done at Dr. Gonzalez's. Will call with results. See me again in 12 months. Visit Notes: >> Jessi Coffman Ma Mon Dec 20, 2017 1:46 PM Status: Signed Patient presents with: Thyroid Problem Medications Discontinued During This Encounter pantoprazole DR (PROTONIX) 40 mg tab* 28 t* 0 10/14/2015 12/20/2017 Route: ORAL Sig: Take 1 tablet by mouth twice daily. Disc: Course of therapy completed Follow-up and Disposition History Recorded Letter Text Fred Fraga Staff Relationship Manager Yemi Otto MD, [place] [address] Office: [phone] December 20, 2017 Fred Fraga Date of : 1965 Please obtain the following laboratory tests on Mr. Fraga. Tests: TSH Free T4 Free T3. Diagnosis(es): Hyperthyroidism (E05.90). Please fax result to [phone]. Thank you. Yemi Otto MD (Electronically signed to expedite processing) Letter Text Fred Fraga Staff Relationship Manager Yemi Otto MD, [place] [address] Office: [phone] December 20, 2017 Fred Fraga Date of : 1965 Please obtain the following laboratory tests on Mr. Fraga. Tests: Lipid Panel, fasting TSH Free T4 Free T3 CMP. Diagnosis(es): Hyperlipidemia (E78.5) Hyperthyroidism (E05.90). Please fax result to [phone]. Thank you. Yemi Otto MD (Electronically signed to expedite processing) Encounter Status:Closed by YEMI OTTO MD on 12/21/17 ALLERGIES ALLERGIES DATE TYPE / CODE NAME / CODE REACTION SEVERITY SOURCE 12/02/2018 Drug No Known Unknown [facility] Allergy/416 Allergies/I38785 Hospital 174361(SNOM 0388(RXNORM) Repository ED CT) Drug NO KNOWN [facility] Class/59789 ALLERGIES Main [place] 1003(SNOMED Repository CT) ENCOUNTERS ENCOUNTERS ADMIT/DISCHARGE ACCOUNT ADMITTING ENCOUNTER LOCATION SOURCE NUMBER CLASS 12/12/2018 [id number] [facility] 12/02/2018 [id number] [facility] 12/02/2018/12/02/19 [id number] Ambulatory BMSBuilding:Daniella [place] [address] [facility] Repository 11/01/2018 [id number] Ambulatory [facility] ing:HPRAD Repository 11/01/2018/11/01/20 [id number] Ambulatory BMSBuilding:B [place] 18 MS.[facility] Repository 09/09/2018 [id number] [facility] Repository 09/05/2018 [id number] Ambulatory BMSBuilding:B [place] MS.[facility] Repository 08/17/2018 [id number] Ambulatory BMSBuilding:B [place] MS.[facility] Repository 08/03/2018 [id number] Ambulatory [facility] ing:[facility]S Repository 08/03/2018 [id number] Ambulatory BMSBuilding:[place] [facility] Repository 08/01/2018 [id number] [facility] Repository 08/01/2018/08/01/20 [id number] Ambulatory BMSBuilding:[place] 18 [place].[facility] Repository 07/29/2018/07/29/20 [id number] Ambulatory BMSBuilding:B [place] 18 [facility] Repository 07/29/2018/07/29/20 [id number] Ambulatory BMSBuilding:[place] 18 [facility] Repository 07/29/2018 [id number] [facility] 07/12/2018 [id number] Ambulatory [facility] ing:LAB Repository 07/12/2018/07/12/20 [id number] Ambulatory BMSBuilding:B [place] 18 [facility] Repository 01/03/2018 [id number] Ambulatory [facility] ing:LAB.FUTUR Repository E 12/20/2017/12/21/19 [id number] Ambulatory [address] Repository PAYERS PAYERS ENCOUNTER GUARANTOR PAYER SUBSCRIBER SOURCE 12/12/2018 FRED Becerra Primary Insurance:MMO FRED Kenyon [id number] OPolicy Number: TOMEKADOB: [facility] [place] [id number] Date:8495-11-81NH BOX Repository [address]Spj: [phone], [place] [phone] () [address]TO: 12/12/2018 Secondary NOT GIVENUNK [place] Insurance:SELF PAY [facility] Number: Effective Repository Date:2018-12-05 12/02/2018 FRED Becerra Primary Insurance:MMO FRED Ken[place] [id number] OPoly Number: TOMEKADOB: [facility] [place] [id number] [id number] Date:3505-85-51YR BOX Repository [address]Zyx: [phone], [place] [phone] () [address]UJ: 12/02/2018 Secondary NOT GIVENUNK [place] Insurance:SELF PAY [facility] Number: Effective Repository Date:2018-12-02 12/02/2018 FRED Becerra Primary Insurance:MMO FRED [id number] [facility] Number: TOMEKADOB: [facility] [place] [id number] Date:7079-10-71OK BOX Repository [address]Prh: [phone], [place] [phone] () [address]AV: 12/02/2018 Secondary NOT GIVENUNK [place] Insurance:SELF PAY [facility] Number: Effective Repository Date:2018-10-27 11/01/2018 FRED Becerra Primary FRED Becerra [place] [id number] Insurance:CARESOURCE ROBINSONDOB: Community [place] JUST FOR [address] Number: Repository [id number]: 330 [id number] [phone] () Date:8924-61-15UM[address] [address]CR: 11/01/2018 Secondary NOT GIVENUNK [place] Insurance:SELF PAY Community [facility] Number: Effective Repository Date:2018-11-01 11/01/2018 FRED Becerra Primary FRED Becerra [place] [id number] Insurance:CARESOURCE ROBINSONDOB: Community [place] JUST FOR [address] Number: Repository [address]Awm: 330 [id number] [phone] () Date:7427-21-29IE[address] [address]BK: 11/01/2018 Secondary NOT GIVENUNK [place] Insurance:SELF PAY Community [facility] Number: Effective Repository Date:2018-10-31 09/09/2018 FRED Becerra Primary FRED العليoster [id number] Insurance:CARESOURCE ROBINSONDOB: Community [place] JUST FOR [address] Number: Repository [id number]: 330 [id number] [phone] () Date:8781-59-44HV[address] [address]AA: 09/09/2018 Secondary NOT GIVENUNK [place] Insurance:SELF PAY Community [facility] Number: Effective Repository Date:2018-08-26 09/05/2018 FRED Becerra Primary FRED Becerra [place] [id number] Insurance:CARESOURCE ROBINSONDOB: Community [place] JUST FOR [address] Number: Repository [address]Fqi: 332) [id number] [phone] (HP) Date:8909-07-39DP [address] [address]LM: 09/05/2018 Secondary NOT GIVENUNK [place] Insurance:SELF PAY [facility] Number: Effective Repository Date:2018-07-22 08/17/2018 FRED A Primary FRED A [place] [id number] Insurance:CARESOURCE ROBINSONDOB: Community [place] JUST FOR [address] Number: Repository [address]Ani: 330 [id number] [phone] () Date:2627-48-19JN[address] [address]UR: 08/17/2018 Secondary NOT GIVENUNK [place] Insurance:SELF PAY Community [facility] Number: Effective Repository Date:2018-07-12 08/03/2018 FRDE A Primary FRED A [place] [id number] Insurance:CARESOURCE ROBINSONDOB: Community [place] JUST FOR [address] Number: Repository [address]Ytp: 330 [id number] [phone] () Date:4935-74-38XC [address] [address]GW: 08/03/2018 Secondary NOT GIVENUNK [place] Insurance:SELF PAY Community [facility] Number: Effective Repository Date:2018-08-01 08/03/2018 FRED A Primary FRED A [place] [id number] Insurance:CARESOURCE ROBINSONDOB: Community [place] JUST FOR [address] Number: Repository [address]Nka: 330 [id number] [phone] () Date:9675-19-17TK[address] [address]RL: 08/03/2018 Secondary NOT GIVENUNK [place] Insurance:SELF PAY [facility] Number: Effective Repository Date:2018-08-03 08/01/2018 FRED A Primary FRED A [place] [id number] Insurance:CARESOURCE ROBINSONDOB: Community [place] JUST FOR [address] Number: Repository [address]Rfg: 330 [id number] [phone] (HP) Date:9727-80-47ZY[address] [address]TC: 08/01/2018 Secondary NOT GIVENUNK [place] Insurance:SELF PAY Community [facility] Number: Effective Repository Date:2018-08-01 08/01/2018 FRED A Primary FRED A [place] [id number] Insurance:CARESOURCE ROBINSONDOB: Community [place] JUST FOR [address] Number: Repository [address]Hzo: 330 [id number] [phone] (HP) Date:7950-16-93VJ[address] [address]ID: 08/01/2018 Secondary NOT GIVENUNK [place] Insurance:SELF PAY [facility] Number: Effective Repository Date:2018-08-01 07/29/2018 FRED A Primary FRED A [place] [id number] Insurance:EDSOISMAELE TOMEKADOB: Community [place] JUST FOR [address] Number: Repository [address]Pdn: 330 [id number] [phone] (HP) Date:0276-45-01OT[address] [address]YT: 07/29/2018 Secondary NOT GIVENUNK [place] Insurance:SELF PAY [facility] Number: Effective Repository Date:2018-07-29 07/29/2018 FRED A Primary FRED A [place] [id number] Insurance:CARESOURCE TOMEKADOB: Community [place] JUST FOR [address] Number: Repository [address]Nrl: 330 [id number] [phone] (HP) Date:8043-59-11QC[address] [address]CS: 07/29/2018 Secondary NOT GIVENUNK [place] Insurance:SELF PAY [facility] Number: Effective Repository Date:2018-07-29 07/29/2018 FRED Becerra Primary FRED Becerra [place] [id number] Insurance:CARESOURCE ROBINSONDOB: Community [place] JUST FOR [address] Number: Repository [address]Yts: 330 [id number] [phone] () Date:8009-05-44FU[address] [address]VR: 07/29/2018 Secondary NOT GIVENUNK [place] Insurance:SELF PAY [facility] Number: Effective Repository Date:2018-07-12 07/12/2018 FRED Becerra Primary FRED Becerra [place] [id number] Insurance:CARESOURCE ROBINSONDOB: Community V[place] JUST FOR [address] Number: Repository [address]Xpt: 330 [id number] [phone] () Date:8007-71-88MU[address] [address]UJ: 07/12/2018 Secondary NOT GIVENUNK [place] Insurance:SELF PAY [facility] Number: Effective Repository Date:2018-07-12 07/12/2018 FRED Becerra Primary FRED العليoster [id number] Insurance:CARESOURCE ROBINSONDOB: Community V[place] JUST FOR [address] Number: Repository [address]Dix: 330 [id number] [phone] () Date:8144-11-77FE[address] [address]TS: 07/12/2018 Secondary NOT GIVENUNK [place] Insurance:SELF PAY [facility] Number: Effective Repository Date:2018-07-12 01/03/2018 FRED Becerra Primary FRED Becerra [place] [id number] Insurance:CARESOURCE ROBINSONDOB: Community V[place] JUST FOR [address] Number: Repository [address]Ogp: 330 [id number] [phone] () Date:1842-54-62[address] [address]IT: 01/03/2018 Secondary NOT GIVENUNK [place] Insurance:SELF PAY [facility] Number: Effective Repository Date:2017-12-29
== END ==
PROVIDERS: Family Provider Family Medicine; PCP Family Medicine; Referring Provider Orthopaedic Surgery; Visit Provider Orthopaedic Surgery
DX: M79.641 Pain in right hand (principal)
CPT/HCPCS: 73130

== ENCOUNTER → 2018-12-02 16:51 | Outpatient (CLI) | payer OTHER, SELFPAY ==
[2018-12-02 15:41] VITALS: BMI 41.8
[2018-12-02 17:41] LABS: Anion Gap 9 (5-15); BUN 14 mg/dL (7-18); BUN/Creat Ratio 16.1 RATIO (10-20); Calcium,Total 9.3 mg/dL (8.5-10.1); Chloride 107 mmol/L (98-107); Creatinine, Serum 0.87 mg/dL (0.70-1.30); EST Glomerular Filtration Rate 98 mL/min (>60); Est Glom Filt Rate - Afr Amer 119 mL/min (>60); Glucose 84 mg/dL (74-106); Potassium 4.3 mmol/L (3.5-5.1); Sodium Level 143 mmol/L (136-145)
== END ==
PROVIDERS: Family Provider Family Medicine; PCP Family Medicine; Referring Provider Internal Medicine Cardiovascular Disease; Visit Provider Internal Medicine Cardiovascular Disease
DX: I48.0 Paroxysmal atrial fibrillation (principal)
CPT/HCPCS: 36415; 80048; 84443

== ENCOUNTER 2018-12-19 10:03 | Day surgery (SDC) | payer OTHER, SELFPAY ==
[2018-12-02 15:41] VITALS: BMI 41.8
[2018-12-09 11:27] VITALS: BMI 41.8
--- NOTE | 2018-12-19 11:23 | PCM.OP.BLANK ---
Operative Report Date of Procedure: 12/19/18 CONSCIOUS SEDATION REPORT DATE OF SERVICE: December 19, 2018 BRIEF HISTORY OF PRESENT ILLNESS: The patient is a 53-year-old male who presented to [facility] for an elective outpatient cardioversion due to underlying atrial fibrillation. The patient is currently anticoagulated on Eliquis. His last known ejection fraction was approximately 55%. He does report a known history of obstructive sleep apnea, which is not currently under treatment. He denies a history of COPD or asthma. He reports no previous anesthetic complications. He denies fevers, chills or night sweats. PHYSICAL EXAMINATION: VITAL SIGNS: Reviewed and were acceptable. GENERAL: The patient is an obese male, in no apparent distress, speaking in full sentences. HEENT: Normocephalic, atraumatic. Mucous membranes are moist and pink. Good mouth opening noted. Trachea is midline. MP III CHEST: S1, S2 irregularly irregular. No murmurs, rubs or gallops were noted. LUNGS: Clear to auscultation bilaterally without appreciable wheezes, rales or rhonchi. ABDOMEN: Soft, nontender, nondistended. Positive bowel sounds. EXTREMITIES: There is no clubbing, cyanosis or edema. ASA Class: II DESCRIPTION OF PROCEDURE: After confirmation of informed consent, the patient's anesthesia plan was reviewed in detail. Propofol was chosen. Risks and benefits were reviewed and the patient agreed to proceed. At 1050, the patient was given a first bolus of propofol. In total, the patient required 90 mg of propofol throughout the entire procedure. After achieving an appropriate level of sedation, the patient underwent synchronized cardioversion by Dr. Reece at the bedside. The patient received 2 separate shocks, one at 300 J and a second at 360 J. This was successful in achieving normal sinus rhythm. The patient was monitored until 1057, at which time he reached his baseline mental status and function. The patient tolerated the procedure well. COMPLICATIONS: None ESTIMATED BLOOD LOSS: None RECOMMENDATIONS: Okay to recover in usual fashion. Code Visit 9xxxx: Other Procedure See Report - [id number]
--- NOTE | 2018-12-19 11:28 | OP.PCM_ITS ---
Operative Report Date of Procedure: 12/19/18 CONSCIOUS SEDATION REPORT DATE OF SERVICE: December 19, 2018 BRIEF HISTORY OF PRESENT ILLNESS: The patient is a 53-year-old male who presented to [facility] for an elective outpatient cardioversion due to underlying atrial fibrillation. The patient is currently anticoagulated on Eliquis. His last known ejection fraction was approximately 55%. He does report a known history of obstructive sleep apnea, which is not currently under treatment. He denies a history of COPD or asthma. He reports no previous anesthetic complications. He denies fevers, chills or night sweats. PHYSICAL EXAMINATION: VITAL SIGNS: Reviewed and were acceptable. GENERAL: The patient is an obese male, in no apparent distress, speaking in full sentences. HEENT: Normocephalic, atraumatic. Mucous membranes are moist and pink. Good mouth opening noted. Trachea is midline. MP III CHEST: S1, S2 irregularly irregular. No murmurs, rubs or gallops were noted. LUNGS: Clear to auscultation bilaterally without appreciable wheezes, rales or rhonchi. ABDOMEN: Soft, nontender, nondistended. Positive bowel sounds. EXTREMITIES: There is no clubbing, cyanosis or edema. ASA Class: II DESCRIPTION OF PROCEDURE: After confirmation of informed consent, the patient's anesthesia plan was revi ewed in detail. Propofol was chosen. Risks and benefits were reviewed and the patient agreed to proceed. At 1050, the patient was given a first bolus of propofol. In total, the patient required 90 mg of propofol throughout the entire procedure. After achieving an appropriate level of sedation, the patient underwent synchronized cardioversion by Dr. Reece at the bedside. The patient received 2 separate shocks, one at 300 J and a second at 360 J. This was successful in achieving normal sinus rhythm. The patient was monitored until 1057, at which time he reached his baseline mental status and function. The patient tolerated the procedure well. COMPLICATIONS: None ESTIMATED BLOOD LOSS: None RECOMMENDATIONS: Okay to recover in usual fashion. Code Visit 9xxxx: Other Procedure See Report - [id number]
--- NOTE | 2018-12-19 13:43 | PCM.OP.BLANK ---
Operative Report Date of Procedure: 12/19/18 DC cardioversion. Procedure: Mr. Fraga is a 53-year-old man with a history of chronic persistent atrial fibrillation which is symptomatic. The patient was brought to the cardiac catheterization lab in the postabsorptive nonsedated state. The patient was seen by Dr. Barton of the critical care division. Informed consent was obtained. Anterior-posterior pads were applied. The patient's ejection fraction was confirmed as well as his adherence to anticoagulation regimen. 90 mg of intravenous propofol was then administered and 300 J of synchronized DC cardioversion energy was applied which was unsuccessful in converting him to sinus rhythm. 360 J of biphasic DC cardioversion energy were applied with prompt reversal to sinus rhythm. EKG confirmed the same. Conclusion: Successful DC cardioversion to sinus rhythm from atrial fibrillation. Continue anticoagulation. Continue flecainide at the same dose.
== END 2018-12-19 12:00 | disposition home or self-care (01) ==
LOC: CLSP 10:04
PROVIDERS: Family Provider Family Medicine; PCP Family Medicine; Referring Provider Internal Medicine Cardiovascular Disease; Visit Provider Internal Medicine Cardiovascular Disease
DX: I48.1 Persistent atrial fibrillation (principal); I48.0 Paroxysmal atrial fibrillation; Q21.1 Atrial septal defect; E05.90 Thyrotoxicosis, unspecified without thyrotoxic crisis or storm; G47.33 Obstructive sleep apnea (adult) (pediatric); E66.01 Morbid (severe) obesity due to excess calories; F17.200 Nicotine dependence, unspecified, uncomplicated; Z79.01 Long term (current) use of anticoagulants; Z79.82 Long term (current) use of aspirin; Z79.899 Other long term (current) drug therapy
CPT/HCPCS: 92960; 93005; J7040

== ENCOUNTER 2019-01-02 09:45 | Day surgery (SDC) | payer OTHER, SELFPAY ==
[2018-12-09 11:27] VITALS: BMI 41.8
[2018-12-30 08:07] VITALS: BMI 41.8
--- NOTE | 2019-01-02 10:44 | PCM.PN.BLA ---
Progress Note DC cardioversion. 53-year-old man with a history of persistent atrial fibrillation flutter. The patient was brought to the cardiac catheterization lab in the postabsorptive state. Patient had been on anticoagulation continuously. The patient was seen by Dr. Barton of the critical care division. Informed consent was obtained. The patient was administered 80 mg of intravenous propofol. Anterior-posterior pads were then applied. The patient was noted to be in atrial flutter with a controlled ventricular response rate. 300 J of synchronized biphasic cardioversion energy were applied with prompt reversal to sinus rhythm. Patient tolerated the procedure well. Conclusion: Successful DC cardioversion to sinus rhythm. Continue anticoagulation Continue flecainide
--- NOTE | 2019-01-02 11:07 | PN_ITS ---
Progress Note CONSCIOUS SEDATION REPORT DATE OF SERVICE: January 02, 2019 BRIEF HISTORY OF PRESENT ILLNESS: The patient is a 53-year-old male who presented to [facility] for an elective outpatient cardioversion due to underlying paroxysmal atrial fibrillation. The patient remains anticoagulated on Eliquis. His last known ejection fraction was approximately 50%. The patient did undergo a previous cardioversion at the end of November 2018, during which time, the patient required 90 mg of propofol. The patient does have a history of obstructive sleep apnea, which is not currently under treatment. He has no known history of COPD or asthma. He denies previous anesthetic complications. PHYSICAL EXAMINATION: VITAL SIGNS: Reviewed and were acceptable. GENERAL: The patient is an obese male, in no apparent distress, speaking in full sentences. HEENT: Normocephalic, atraumatic. Mucous membranes are moist and pink. Good mouth opening noted. Trachea is midline. MPIII CHEST: S1, S2 irregularly irregular. No murmurs, rubs or gallops were noted. LUNGS: Clear to auscultation bilaterally without appreciable wheezes, rales or rhonchi. ABDOMEN: Soft, nontender, nondistended. Positive bowel sounds. EXTREMITIES: There is no clubbing, cyanosis or edema. ASA Class: II DESCRIPTION OF PROCEDURE: After confirmation of informed consent, the patient's anesthesia plan was reviewed in detail. Propofol was chosen. Risks and benefits were reviewed and the patient agreed to proceed. At 1034, the patient was given 80 mg of propofol. The patient achieved an appropriate level of sedation and was given a 300 joule synchronized cardioversion by Dr. Reece at the bedside. This was successful in achieving normal sinus rhythm. The patient was monitored until 1042, at which time he reached his baseline mental status and function. The patient tolerated the procedure well. COMPLICATIONS: None ESTIMATED BLOOD LOSS: None RECOMMENDATIONS: Okay to recover in usual fashion. Code Visit 9xxxx: Other Procedure See Report - [id number]
== END 2019-01-02 11:45 | disposition home or self-care (01) ==
PROVIDERS: Family Provider Family Medicine; PCP Family Medicine; Referring Provider Internal Medicine Cardiovascular Disease; Visit Provider Internal Medicine Cardiovascular Disease
DX: I48.1 Persistent atrial fibrillation (principal); I48.0 Paroxysmal atrial fibrillation; I48.92 Unspecified atrial flutter; Q21.1 Atrial septal defect; E05.90 Thyrotoxicosis, unspecified without thyrotoxic crisis or storm; G47.33 Obstructive sleep apnea (adult) (pediatric); E66.01 Morbid (severe) obesity due to excess calories; F17.200 Nicotine dependence, unspecified, uncomplicated; Z79.01 Long term (current) use of anticoagulants; Z79.82 Long term (current) use of aspirin; Z79.899 Other long term (current) drug therapy
CPT/HCPCS: 92960; 93005; J7040

== ENCOUNTER → 2019-02-28 12:14 | Outpatient (CLI) | payer OTHER, SELFPAY ==
[2019-02-28 11:23] VITALS: BMI 41.8
== END ==
PROVIDERS: Family Provider Family Medicine; PCP Family Medicine; Referring Provider Nurse Practitioner Family; Visit Provider Nurse Practitioner Family
DX: R07.9 Chest pain, unspecified (principal); I48.0 Paroxysmal atrial fibrillation
CPT/HCPCS: 36415; 84484

== ENCOUNTER 2019-03-06 10:00 | Day surgery (SDC) | payer OTHER, SELFPAY ==
[2019-02-28 11:23] VITALS: BMI 41.8
--- NOTE | 2019-03-01 09:49 | RAD_ITS ---
STUDY: X-RAY CHEST REASON FOR EXAM: Male, 53 years old. Preop for heart catheterization. History of atrial fibrillation. TECHNIQUE: Frontal and lateral views of the chest. COMPARISON: None. FINDINGS: The lungs are clear and mildly hyper expanded. There is no demonstrated pleural abnormality. Normal size heart. Normal mediastinum and sofia. Normal visualized pulmonary arteries. Normal visualized aortic arch and descending thoracic aorta. There are diffuse degenerative changes of the visualized thoracic spine. Normal visualized ribs, clavicles, and shoulders. There is no demonstrated abnormality of the visualized soft tissue structures of the upper abdomen. RAD/Chest PA and Lateral IMPRESSION: Mild hyperexpansion of the lungs, possibly representing COPD. No evidence for acute cardiopulmonary pathology. Electronically Signed: Flaco Whyte MD at 5:59 EDT , Service support ,
[2019-03-01 10:44] LABS: Absolute Lymphocyte Count 2.79 X10^3/ul (0.83-4.51); Absolute Neutrophil Count 5.5 X10^3/uL (2.0-7.7); Basophil# 0.04 X10^3/uL; Basophil% 0.5 % (0-1); Eosinophil# 0.16 X10^3/uL; Eosinophils% 1.8 % (0-5); Hematocrit 43.7 % (40-54); Hemoglobin 14.8 g/dl (13.0-16.5); Lymphocyte # 2.79 X10^3/ul (4.0); Lymphocyte % 31.8 % (19-41); Mean Corp Hgb Conc 33.9 g/gl (32-36); Mean Corpuscular Hgb 28.8 pg (27.0-32.0); Mean Platelet Vol. 9.4 fl (6.2-12.0); Monocyte# 0.32 X10^3/uL; Monocyte% 3.6 % (0-10); Neutrophil # 5.45 X10^3/uL (2.7-7.7); Neutrophil % 62.1 % (47-70); Platelet Count 308 K/mm3 (150-450); RBC Distribution Width CV 13.1 % (11.6-14.6); RBC Distribution Width SD 40.7 fl (35.1-43.9); Red Blood Count 5.14 M/mm3 (4.6-6.2); White Blood Count 8.8 K/mm3 (4.4-11.0)
[2019-03-01 10:47] LABS: POSITIVE COUNT NO; POSITIVE DIFFERENTIAL NO; POSITIVE MORPHOLOGY NO
[2019-03-01 11:01] LABS: International Normalized Ratio 1.1; Partial Thromboplast Time 34.1 Seconds (24.1-36.2); Prothrombin Time (Protime)PT. 14.1 SECONDS (11.7-14.9)
[2019-03-01 11:30] LABS: Anion Gap 10 (5-15); BUN 16 mg/dL (7-18); BUN/Creat Ratio 18.3 RATIO (10-20); Chloride 107 mmol/L (98-107); Creatinine, Serum 0.88 mg/dL (0.70-1.30); EST Glomerular Filtration Rate 97 mL/min (>60); Est Glom Filt Rate - Afr Amer 118 mL/min (>60); Glucose 126 mg/dL (74-106); Potassium 4.3 mmol/L (3.5-5.1); Sodium Level 139 mmol/L (136-145)
[2019-03-02 08:44] VITALS: BMI 40.6
--- NOTE | 2019-03-02 14:25 | HP_ITS ---
HPI HPI Surgical H&P: Yes Details: FRED ECKERT, is a 53 M who presents to the office today for a follow-up visit. History of atrial fibrillation status post ESTHER guided cardioversion in May 2008, 12/19/18 and December 2018, previous tobacco abuse, CARMEN, hyperthyroidism treated with methimazole, and obesity. He states noticing chest pain yesterday that he describes as squeezing. He states left arm discomfort last week. Both symptoms improve with rest. His discomfort yesterday was associated with SOB. The remaining of the day was completed with limited activity. He states feeling general weakness yesterday, but improved today. He states he chest pain yesterday was associated with lightheadedness and dizziness. He states diaphoresis or nausea all the time off and on. Pt denies edema or claudication issues. His edema is improved since reducing his pop intake. Pt. denies orthopnea, PND, fever, chills, or myalgia. He states overall, his energy level is reduced. 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: No Accompanied by: Is patient in pain?: No Allergies No Known Allergies Allergy (Verified 02/28/19 11:16) Medications Methimazole [Tapazole] 5 mg PO DAILY 10/09/13 [History Confirmed 03/02/19] apixaban 5 mg tablet 5 mg PO BID #60 tab 07/29/18 [Rx Confirmed 03/02/19] metoprolol tartrate 50 mg tablet 50 mg PO BID #60 tab 07/29/18 [Rx Confirmed 03/02/19] flecainide 150 mg tablet 150 mg PO Q12H #60 tab 12/26/18 [Rx Confirmed 03/02/19] aspirin 81 mg tablet,delayed release 81 mg PO DAILY 02/28/19 [History Confirmed 03/02/19] clopidogrel 75 mg tablet 75 mg PO DAILY #30 tab 02/28/19 [Rx Confirmed 03/02/19] Ejection fraction %: 50 to 54 PFSH Medical History Nicotine dependence (Chronic) Patent foramen ovale (Chronic) Morbid (severe) obesity due to excess calories (Chronic) Paroxysmal atrial fibrillation (Chronic) Hyperthyroidism (Chronic) Hypersomnia, unspecified (Chronic) Surgical History History of cardioversion (Resolved 05/30/08) History of foot surgery (Resolved) Family History Father Diabetes Hypertension Mother Diabetes Hypertension Grandmother Myocardial infarction Social History Smoking Status: Current every day smoker Smokeless tobacco user: snuff how long ago did patient quit smokin years ago alcohol intake: current alcohol intake frequency: holidays/special occasions only substance use type: does not use caffeine: Yes Type: coffee Number of servings: 3 ROS Const Const: Positive for fatigue, weakness and excessive sweating; negative for body ache, fever(s) or chills ENT ENT: Positive for dizziness Cardio Chest Pain: Yes Palpitations: No Edema: None Muscle aches with walking: None Resp Respiratory: Positive for SOB with activity; negative for SOB at rest, SOB orthopnea\SOB lying down or paroxysmal nocturnal dyspnea GI GI: Positive for nausea; negative vomiting blood/hematemesis, bright, red blood in stools or black,tarry stools : Negative for hematuria or frequent nighttime urination/ nocturia Musc Musc: Negative for muscle aches/ myalgia Skin Skin: Negative non-healing lesions or rash Neuro Neuro: Positive for dizziness, lightheadedness and weakness; negative for near syncope, syncope or orthostatic symptoms Endo Endo: Positive for fatigue and excessive sweating Allergy Allergy/Immunology: Negative for rash Cardiology Exam Const Appearance: cooperative, healthy appearing, comfortable and no acute distress Nutritional Appearance: well nourished and obese Orientation: alert, awake and oriented x3 Head Head: normal to inspection Ears: hearing grossly normal bilaterally Nose: external nose normal Face and Sinus: face symmetric Mouth: oral mucosae normal Eyes General: appearance normal, both eyes and all related structures Eyelids: eyelids normal EOM: EOM intact bilaterally Neck Neck: normal visual inspection and no JVD Carotids: normal carotid upstroke Chest Chest inspection: normal inspection of the chest, symmetric chest movement and normal respiratory effort; negative cough Auscultation: Bilateral: Clear to Auscultation Cardio Rate: regular rate Rhythm: irregularly irregular Heart sounds: S1 normal and S2 normal; negative rub, gallop or murmur GI GI: normal to inspection and obese Neuro General: alert, awake, oriented x3 and CN's II-XI intact bilaterally Skin Skin: no rashes or lesions noted Extremities Pulses: Normal: Right Posterior Tibial Pulse, Left Posterior Tibial Pulse, Right Radial Pulse, Left Radial Pulse Lower Extremity Edema: None: Bilateral Psych Psychological: normal affect Assessment & Plan 1. Chest pain, unspecified type R07.9 Plan - KIET Wong Patient's description of his chest pain is very concerning for coronary artery disease. His EKG showed atrial flutter without ST changes. He will undergo laboratory evaluation with a troponin. He was instructed that if this test is positive that he will need further evaluation either through hospitalization or emergency department. He is acknowledges understanding and is agreeable. Based on results further recommended will be made. His , Faye, will be notified of laboratory results at [phone]. By completion of this note patient's cardiac enzyme was noted to be negative. His care was discussed further with Dr. Reece. Due to his ongoing episodes of paroxysmal atrial fibrillation and concerning symptoms, he will undergo a heart catheterization for further evaluation and guidance in regards to his atrial fibrillation treatment. Orders Orders: 12 Lead EKG performed by [facility] [place] 02/28/19 Troponin-I 02/28/19 2. Paroxysmal atrial fibrillation I48.0 Plan - KIET Wong Patient's EKG in office shows atrial flutter at a rate of 81 bpm. His most recent cardioversion per patient was in December 2018. His heart rate is well controlled. He will continue with oral anticoagulation at this time. Depending on his laboratory results his anticoagulation may need to be held. Patient has undergone multiple cardioversions and is currently on antiarrhythmic medication. Thus, electrophysiology consult may be a reasonable option for atrial fibrillation management. Based on results of his heart catheterization further consideration for electrophysiology will be made. Orders Orders: 12 Lead EKG performed by [facility] [place] 02/28/19 Troponin-I 02/28/19 Plan Detail Additional Comments - KIET Wong Discussed the above patient with Dr. Reece, he agrees with the plan of care. Thank you for allowing us to participate in the patients plan of care, if you have any questions please do not hesitate to call. This note was generated using a voice recognition system and there may be incorrect words, spelling or punctuation that were not noted when reviewing the office note prior to saving. Coding Level of Care Code Off vis,est,level 4 Diagnoses Chest pain, unspecified type R07.9 ??Chest pain type: unspecified Paroxysmal atrial fibrillation I48.0 Coding Level of Care Code Off vis,est,level 4 Diagnoses Chest pain, unspecified type R07.9 ??Chest pain type: unspecified Paroxysmal atrial fibrillation I48.0 Supplemental Info Supplemental Information Echocardiogram from 07/29/18: Interpretation Summary Normal LV size. Left ventricular systolic function is lower limits of normal. The estimated ejection fraction is 50 %. Unable to assess diastolic dysfunction due to arrhythmia. Mild tricuspid valve insufficiency. The study was technically difficult. Diagnostics Electrocardiogram 02/28/19 Chest X-Ray 03/01/19
--- NOTE | 2019-03-06 12:03 | CL.D_ITS ---
Patient Name: FRED ECKERT Study Date: 03/06/2019 Performing: Regino Reece MD Ht: 74.01 inches 188 cm : 1965 Wt: 315.26 lbs 143 kg Age: 53 Gender: male BSA: 2.64 PROCEDURE(S) PERFORMED TE84-WOS/COR/LV CLINICAL PROFILE AND INDICATIONS Indications: Cardiac Arrythmia Heart Failure: None Stress/Imaging Stress/Image Study Performed: No CAD Presentations: No Sxs, no angina. CONCLUSIONS Normal coronary arteries Cardiomyopathy: Dilated RECOMMENDATIONS Medical therapy DESCRIPTION OF PROCEDURE The patient arrived to the procedure lab. The risks and benefits of the procedure as well as a full d escription of our services here and current unavailability of surgical backup were fully explained to the patient and/or their significant other prior to the catheterization. The Timeout was completed, verifying the correct patient and procedure. The patient's procedural site was prepped and draped in the usual fashion. Local anesthetic was given subcutaneously to right radial region with Lidocaine 2% . Using a modified Seldinger technique, arterial access was obtained via the right radial artery, a 6 Fr sheath was inserted. Right Coronary Artery selective angiography was then performed in multiple v iews using a 5 Fr. 4.0 [place] catheter. Left Coronary Artery selective angiography was performed in mu ltiple views using a 5 Fr. 4.0 [place] catheter. Left Ventriculography was performed in JONES projection using a 5 Fr. [place] catheter. LV to AO pullback pressures were then recorded.The arterial sheath was pulled and a TR Band was applied for hemostasis 14cc air CORONARY ANGIOGRAPHY DOMINANCE: Left Dominant LEFT HEART ASSESSMENT Left Ventricular Ejection Fraction: by LV Gram 35 % Global Hypokinesis - Moderate Depressed Left Ventricular systolic function LEFT MAIN: Angiographically normal LEFT ANTERIOR DECENDING ARTERY: Angiographically normal CIRCUMFLEX ARTERY: Angiographically normal RIGHT CORONARY ARTERY: Angiographically normal COMPLICATIONS No Complications PROCEDURE MEDICATIONS Fentanyl 50 mcg IV Versed 1 mg IV Fentanyl 25 mcg IV Oxygen: 2 L/min via nasal cannula Heparin diluted in 23cc Heparinized saline. Patient given 10cc IA of this solution. 03/06/2019 11:34: 00 Verapamil 2.5mg, Ntg 100mcgs, 2000 units of Heparin diluted in 23cc Heparinized saline. Patient give n 10cc IA of this solution. 03/06/2019 11:34:00 SUMMARY OF HEMODYNAMIC DATA Time AIR REST ECG 10:23:41 AO 111/67 (77) SA 11:34:16 AO 95/73 (82) 11:37:26 LV 96/3, 9 11:46:18 LV 103/10, 12 11:46:25 LV 98/12, 15 11:47:52 LVp 112/7, 13 11:48:00 AOp 106/78 (91) 11:48:05 Signed By Regino Reece MD On 03/06/2019 12:02:15 Regino Reece MD
== END 2019-03-06 14:30 | disposition home or self-care (01) ==
LOC: CLSP 10:01
PROVIDERS: Nurse Practitioner Family; Family Provider Family Medicine; PCP Family Medicine; Referring Provider Internal Medicine Cardiovascular Disease; Visit Provider Internal Medicine Cardiovascular Disease
DX: I49.9 Cardiac arrhythmia, unspecified (principal); I42.0 Dilated cardiomyopathy; R07.9 Chest pain, unspecified; I48.0 Paroxysmal atrial fibrillation; G47.33 Obstructive sleep apnea (adult) (pediatric); E03.9 Hypothyroidism, unspecified; E66.01 Morbid (severe) obesity due to excess calories; Z68.41 Body mass index [BMI] 40.0-44.9, adult; Z79.82 Long term (current) use of aspirin; Z79.899 Other long term (current) drug therapy; F17.200 Nicotine dependence, unspecified, uncomplicated
CPT/HCPCS: 36415; 71046; 80048; 85025; 85610; 85730; 93458; 99152; 99153; J7040; C1769; C1894; Q9967

== ENCOUNTER → 2019-03-23 12:40 | Outpatient (CLI) | payer OTHER, SELFPAY ==
[2019-03-02 08:44] VITALS: BMI 40.6
[2019-03-23 14:33] LABS: Free T3 2.8 pg/mL (2.18-3.98); T4 Free Direct 1.06 ng/dL (0.76-1.46); Thyroid Stim Hormone (TSH) 2.35 uIU/mL (0.358-3.74)
== END ==
PROVIDERS: Family Provider Family Medicine; PCP Family Medicine
DX: E05.00 Thyrotoxicosis with diffuse goiter without thyrotoxic crisis or storm (principal)
CPT/HCPCS: 36415; 84439; 84443; 84481

== ENCOUNTER 2019-04-05 10:07 | Day surgery (SDC) | payer OTHER, SELFPAY ==
[2019-03-02 08:44] VITALS: BMI 40.6
--- NOTE | 2019-03-02 14:25 | HP_ITS ---
HPI HPI Surgical H&P: Yes Details: FRED ECKERT, is a 53 M who presents to the office today for a follow-up visit. History of atrial fibrillation status post ESTHER guided cardioversion in May 2008, 12/19/18 and December 2018, previous tobacco abuse, CARMEN, hyperthyroidism treated with methimazole, and obesity. He states noticing chest pain yesterday that he describes as squeezing. He states left arm discomfort last week. Both symptoms improve with rest. His discomfort yesterday was associated with SOB. The remaining of the day was completed with limited activity. He states feeling general weakness yesterday, but improved today. He states he chest pain yesterday was associated with lightheadedness and dizziness. He states diaphoresis or nausea all the time off and on. Pt denies edema or claudication issues. His edema is improved since reducing his pop intake. Pt. denies orthopnea, PND, fever, chills, or myalgia. He states overall, his energy level is reduced. 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 by: Is patient in pain?: No Allergies No Known Allergies Allergy (Verified 02/28/19 11:16) Medications Methimazole [Tapazole] 5 mg PO DAILY 10/09/13 [History Confirmed 03/02/19] apixaban 5 mg tablet 5 mg PO BID #60 tab 07/29/18 [Rx Confirmed 03/02/19] metoprolol tartrate 50 mg tablet 50 mg PO BID #60 tab 07/29/18 [Rx Confirmed 03/02/19] flecainide 150 mg tablet 150 mg PO Q12H #60 tab 12/26/18 [Rx Confirmed 03/02/19] aspirin 81 mg tablet,delayed release 81 mg PO DAILY 02/28/19 [History Confirmed 03/02/19] clopidogrel 75 mg tablet 75 mg PO DAILY #30 tab 02/28/19 [Rx Confirmed 03/02/19] Ejection fraction %: 50 to 54 PFSH Medical History Nicotine dependence (Chronic) Patent foramen ovale (Chronic) Morbid (severe) obesity due to excess calories (Chronic) Paroxysmal atrial fibrillation (Chronic) Hyperthyroidism (Chronic) Hypersomnia, unspecified (Chronic) Surgical History History of cardioversion (Resolved 05/30/08) History of foot surgery (Resolved) Family History Father Diabetes Hypertension Mother Diabetes Hypertension Grandmother Myocardial infarction Social History Smoking Status: Current every day smoker Smokeless tobacco user: snuff how long ago did patient quit smokin years ago alcohol intake: current alcohol intake frequency: holidays/special occasions only substance use type: does not use caffeine: Yes Type: coffee Number of servings: 3 ROS Const Const: Positive for fatigue, weakness and excessive sweating; negative for body ache, fever(s) or chills ENT ENT: Positive for dizziness Cardio Chest Pain: Yes Palpitations: No Edema: None Muscle aches with walking: None Resp Respiratory: Positive for SOB with activity; negative for SOB at rest, SOB orthopnea\SOB lying down or paroxysmal nocturnal dyspnea GI GI: Positive for nausea; negative vomiting blood/hematemesis, bright, red blood in stools or black,tarry stools : Negative for hematuria or frequent nighttime urination/ nocturia Musc Musc: Negative for muscle aches/ myalgia Skin Skin: Negative non-healing lesions or rash Neuro Neuro: Positive for dizziness, lightheadedness and weakness; negative for near syncope, syncope or orthostatic symptoms Endo Endo: Positive for fatigue and excessive sweating Allergy Allergy/Immunology: Negative for rash Cardiology Exam Const Appearance: cooperative, healthy appearing, comfortable and no acute distress Nutritional Appearance: well nourished and obese Orientation: alert, awake and oriented x3 Head Head: normal to inspection Ears: hearing grossly normal bilaterally Nose: external nose normal Face and Sinus: face symmetric Mouth: oral mucosae normal Eyes General: appearance normal, both eyes and all related structures Eyelids: eyelids normal EOM: EOM intact bilaterally Neck Neck: normal visual inspection and no JVD Carotids: normal carotid upstroke Chest Chest inspection: normal inspection of the chest, symmetric chest movement and normal respiratory effort; negative cough Auscultation: Bilateral: Clear to Auscultation Cardio Rate: regular rate Rhythm: irregularly irregular Heart sounds: S1 normal and S2 normal; negative rub, gallop or murmur GI GI: normal to inspection and obese Neuro General: alert, awake, oriented x3 and CN's II-XI intact bilaterally Skin Skin: no rashes or lesions noted Extremities Pulses: Normal: Right Posterior Tibial Pulse, Left Posterior Tibial Pulse, Right Radial Pulse, Left Radial Pulse Lower Extremity Edema: None: Bilateral Psych Psychological: normal affect Assessment & Plan 1. Chest pain, unspecified type R07.9 Plan - KIET Wong Patient's description of his chest pain is very concerning for coronary artery disease. His EKG showed atrial flutter without ST changes. He will undergo laboratory evaluation with a troponin. He was instructed that if this test is positive that he will need further evaluation either through hospitalization or emergency department. He is acknowledges understanding and is agreeable. Based on results further recommended will be made. His , Faye, will be notified of laboratory results at [phone]. By completion of this note patient's cardiac enzyme was noted to be negative. His care was discussed further with Dr. Reece. Due to his ongoing episodes of paroxysmal atrial fibrillation and concerning symptoms, he will undergo a heart catheterization for further evaluation and guidance in regards to his atrial fibrillation treatment. Orders Orders: 12 [place] [facility] [place] Troponin-I 02/28/19 2. Paroxysmal atrial fibrillation I48.0 Plan - KIET Wong Patient's EKG in office shows atrial flutter at a rate of 81 bpm. His most recent cardioversion per patient was in December 2018. His heart rate is well controlled. He will continue with oral anticoagulation at this time. Depending on his laboratory results his anticoagulation may need to be held. Patient has undergone multiple cardioversions and is currently on antiarrhythmic medication. Thus, electrophysiology consult may be a reasonable option for atrial fibrillation management. Based on results of his heart catheterization further consideration for electrophysiology will be made. Orders Orders: 12 [place] [facility] [place] Troponin-I 02/28/19 Plan Detail Additional Comments - KIET Wong Discussed the above patient with Dr. Reece, he agrees with the plan of care. Thank you for allowing us to participate in the patients plan of care, if you have any questions please do not hesitate to call. This note was generated using a voice recognition system and there may be incorrect words, spelling or punctuation that were not noted when reviewing the office note prior to saving. Coding Level of Care Code Off vis,est,level 4 Diagnoses Chest pain, unspecified type R07.9 ??Chest pain type: unspecified Paroxysmal atrial fibrillation I48.0 Coding Level of Care Code Off vis,est,level 4 Diagnoses Chest pain, unspecified type R07.9 ??Chest pain type: unspecified Paroxysmal atrial fibrillation I48.0 Supplemental Info Supplemental Information Echocardiogram from 07/29/18: Interpretation Summary Normal LV size. Left ventricular systolic function is lower limits of normal. The estimated ejection fraction is 50 %. Unable to assess diastolic dysfunction due to arrhythmia. Mild tricuspid valve insufficiency. The study was technically difficult. Diagnostics Electrocardiogram 02/28/19 Chest X-Ray 03/01/19
[2019-03-23 14:19] LABS: Anion Gap 7 (5-15); BUN 16 mg/dL (7-18); BUN/Creat Ratio 18.7 RATIO (10-20); Calcium,Total 9.1 mg/dL (8.5-10.1); Chloride 106 mmol/L (98-107); Creatinine, Serum 0.86 mg/dL (0.70-1.30); EST Glomerular Filtration Rate 100 mL/min (>60); Est Glom Filt Rate - Afr Amer 121 mL/min (>60); Glucose 110 mg/dL (74-106); Potassium 4.3 mmol/L (3.5-5.1); Sodium Level 140 mmol/L (136-145)
[2019-04-04 15:01] VITALS: BMI 40.6
--- NOTE | 2019-04-05 11:03 | HP.PCM_ITS ---
Problem List (1) Paroxysmal atrial fibrillation Status: Chronic History and Physical Date of Admission: 04/05/19 HPI HPI History of Present Illness Surgical H&P: Yes Details: FRED ECKERT, is a 53 M who presents to [facility] today for a cardioversion procedure. He has a history of atrial fibrillation status post ESTHER guided cardioversion in May 2008, 12/19/18 and December 2018, previous tobacco abuse, CARMEN, hyperthyroidism treated with methimazole, and obesity. He states his previous chest pain that was assessed at last office visit has continued, but is not to similar severity. He continues to have episodes of shortness of breath with heavy lifting and when walking uphill. He also acknowledges episodes of lightheaded and dizziness at times. He also expresses concern regarding his fatigue. He denies any lower extremity edema, claudication, blood in urine, blood in stool, or myalgia. Intake Intake Visit Reasons: DCCV Allergies No Known Allergies Allergy (Verified 02/28/19 11:16) Medications Methimazole [Tapazole] 5 mg PO DAILY 10/09/13 [History Confirmed 04/04/19] apixaban 5 mg tablet 5 mg PO BID #60 tab 07/29/18 [Rx Confirmed 04/04/19] metoprolol tartrate 50 mg tablet 50 mg PO BID #60 tab 07/29/18 [Rx Confirmed 04/04/19] flecainide 150 mg tablet 150 mg PO Q12H #60 tab 12/26/18 [Rx Confirmed 04/04/19] aspirin 81 mg tablet,delayed release 81 mg PO DAILY 02/28/19 [History Confirmed 04/04/19] Clopidogrel Bisulfate [Plavix] 75 mg PO DAILY 04/04/19 [History Confirmed 04/04/19] PFSH Medical History Nicotine dependence (Chronic) Patent foramen ovale (Chronic) Morbid (severe) obesity due to excess calories (Chronic) Paroxysmal atrial fibrillation (Chronic) Hyperthyroidism (Chronic) Hypersomnia, unspecified (Chronic) Surgical History History of cardioversion (Resolved 05/30/08) History of foot surgery (Resolved) History of left heart catheterization (Resolved 03/06/19) Family History Father Diabetes Hypertension Mother Diabetes Hypertension Grandmother Myocardial infarction Social History Smoking Status: Current every day smoker Smokeless tobacco user: snuff how long ago did patient quit smokin years ago alcohol intake: current alcohol intake frequency: holidays/special occasions only substance use type: does not use caffeine: Yes Type: coffee Number of servings: 3 Vital Signs: See electronic medical records for details. ROS Const Const: Positive for fatigue; negative for weakness, body ache, fever(s) or chills ENT ENT: Positive for dizziness Cardio Chest Pain: Yes Palpitations: No Edema: None Muscle aches with walking: None Resp Respiratory: Positive for SOB with activity; negative for SOB at rest, SOB orthopnea\SOB lying down or paroxysmal nocturnal dyspnea GI GI: Negative nausea, vomiting blood/hematemesis, bright, red blood in stools or black,tarry stools : Negative for hematuria or frequent nighttime urination/ nocturia Musc Musc: Negative for muscle aches/ myalgia Skin Skin: Negative non-healing lesions or rash Neuro Neuro: Positive for dizziness and lightheadedness; negative for near syncope, syncope, orthostatic symptoms or weakness Endo Endo: Positive for fatigue Allergy Allergy/Immunology: Negative for rash Cardiology Exam Const Appearance: cooperative, healthy appearing, comfortable and no acute distress Nutritional Appearance: well nourished and obese Orientation: alert, awake and oriented x3 Head Head: normal to inspection Ears: hearing grossly normal bilaterally Nose: external nose normal Face and Sinus: face symmetric Mouth: oral mucosae normal Eyes General: appearance normal, both eyes and all related structures Eyelids: eyelids normal EOM: EOM intact bilaterally Neck Neck: normal visual inspection and no JVD Carotids: normal carotid upstroke Chest Chest inspection: normal inspection of the chest, symmetric chest movement and normal respiratory effort; negative cough Auscultation: Bilateral: Clear to Auscultation Cardio Rate: regular rate Rhythm: irregularly irregular Heart sounds: S1 normal and S2 normal; negative rub, gallop or murmur GI GI: obese Neuro General: alert, awake, oriented x3 and CN's II-XI intact bilaterally Skin Skin: no rashes or lesions noted Extremities Pulses: Normal: Right Posterior Tibial Pulse, Left Posterior Tibial Pulse, Right Radial Pulse, Left Radial Pulse Lower Extremity Edema: None: Bilateral Psych Psychological: normal affect Assessment & Plan 1. Paroxysmal atrial fibrillation I48.0 Plan - KIET Wong His most recent cardioversion was on 01/02/2019. His EKG continues to show atrial flutter with a controlled rate. He does acknowledge having a tentative appointment with healthcare administrative assistant Feliberto Banda with [facility]. He will proceed with cardioversion. 2. Cardiomyopathy in diseases classified elsewhere I43 Plan - KIET Wong His most recent echocardiogram for July 2018 showed ejection fraction of 50%. His most recent heart catheterization from February 2019 showed ejection at 35% and angiographically normal coronary arteries. His blood pressure has been on the lower end previously and thus additional medication such as AAYUSH inhibitor or ARB has not been started. Hopefully, by maintaining sinus rhythm this will improve his overall heart function. 3. CARMEN (obstructive sleep apnea) G47.33 Plan - KIET Wong Patient expresses hesitancy to begins obstructive sleep apnea treatment. He was reminded of the importance in regards to his atrial fibrillation as well as his fatigue. He acknowledged understanding and will decide how he wants to proceed at a later date. Plan Detail Additional Comments - KIET Wong Discussed the above patient with Dr. Reece, he agrees with the plan of care. Thank you for allowing us to participate in the patients plan of care, if you have any questions please do not hesitate to call. This note was generated using a voice recognition system and there may be incorrect words, spelling or punctuation that were not noted when reviewing the office note prior to saving. Supplemental Info Supplemental Information Echocardiogram from 07/29/18: Interpretation Summary Normal LV size. Left ventricular systolic function is lower limits of normal. The estimated ejection fraction is 50 %. Unable to assess diastolic dysfunction due to arrhythmia. Mild tricuspid valve insufficiency. The study was technically difficult. Heart catheterization from 03/06/2019: CORONARY ANGIOGRAPHY DOMINANCE: Left Dominant LEFT HEART ASSESSMENT Left Ventricular Ejection Fraction: by LV Gram 35 % Global Hypokinesis - Moderate Depressed Left Ventricular systolic function LEFT MAIN: Angiographically normal LEFT ANTERIOR DESCENDING ARTERY: Angiographically normal CIRCUMFLEX ARTERY: Angiographically normal RIGHT CORONARY ARTERY: Angiographically normal Diagnostics Electrocardiogram 02/28/19 Cardiac Catheterization 03/06/19 Chest X-Ray 03/01/19 Echocardiogram 07/29/18
--- NOTE | 2019-04-05 12:13 | CARDIOVERS_ITS ---
Cardioversion Cardioversion: DC cardioversion 53-year-old gentleman with a history of atrial flutter nonischemic cardiomyopathy. Patient has been on persistent therapeutic anticoagulation. Patient was brought to the cardiac catheterization lab in the postabsorptive nonsedated state. The patient was seen by Dr. Parmar of the [facility]. Informed consent was obtained. Anterior-posterior pads were applied. The patient was then administered 60 mg of intravenous propofol and then 300 J of synchronized DC biphasic cardioversion energy were applied. The patient promptly converted to sinus rhythm. Postoperative EKG confirmed the above. Patient tolerated the procedure well. Conclusion: Successful DC cardioversion to sinus rhythm. Continue anticoagulation. Continue beta-vick and flecainide. Follow-up in office as per protocol. Would recommend referral for sleep apnea evaluation.
--- NOTE | 2019-04-05 15:09 | PRO.PCM_ITS ---
Problem List (1) Cardiomyopathy in diseases classified elsewhere Status: Chronic (2) Hyperthyroidism Status: Chronic (3) Morbid (severe) obesity due to excess calories Status: Chronic (4) Nicotine dependence Status: Chronic (5) CARMEN (obstructive sleep apnea) Status: Chronic (6) Paroxysmal atrial fibrillation Status: Chronic (7) Patent foramen ovale Status: Chronic Comment: with bidirectional shunting per ESTHER Procedure Report Date of Procedure: 04/05/19 - Conscious sedation CONSCIOUS SEDATION REPORT BRIEF HISTORY OF PRESENT ILLNESS: The patient is a 53-year-old male who presented to [facility] for an elective outpatient cardioversion due to underlying atrial fibrillation. The patient reports no PO intake since midnight. The patient does have a history of obstructive sleep apnea. The patient reports a history of smoking, but denies COPD. The patient denies any recent constitutional symptoms such as fevers, chills, nausea or vomiting. The patient denies previous anesthetic comp lications. Patient last known ejection fraction of 50%. Patient did take flecainide and Eliquis on the day of procedure. PHYSICAL EXAMINATION: VITAL SIGNS: Reviewed and were acceptable. GENERAL: The patient is a male, in no apparent distress, speaking in full sentences. HEENT: Normocephalic, atraumatic. Mucous membranes are moist and pink. Good mouth opening noted. Trachea is midline. Good neck mobility. MP IV CHEST: S1, S2 irregularly irregular. No murmurs, rubs or gallops were noted. LUNGS: Clear to auscultation bilaterally without appreciable wheezes, rales or rhonchi. ABDOMEN: Soft, nontender, nondistended. Positive bowel sounds. EXTREMITIES: There is no clubbing, cyanosis or edema. ASA Class: II DESCRIPTION OF PROCEDURE: After confirmation of informed consent, the patient's anesthesia plan was reviewed in detail. Propofol was chosen. Risks and benefits were reviewed and the patient agreed to proceed. At 12:04 PM, the patient was given 40 mg of propofol. The patient required a total of 60 mg of propofol throughout the procedure to achieve appropriate sedation. The patient achieved an appropriate level of sedation and received 1 attempt synchronized cardioversion, at [address] Reece at the bedside. This was successful in achiev ing normal sinus rhythm. The patient was monitored until, at which time the patient reached their baseline mental status and function. The patient tolerated the procedure well. COMPLICATIONS: None ESTIMATED BLOOD LOSS: None RECOMMENDATIONS: Okay to recover in usual fashion. Code Visit 9xxxx: Other Procedure See Report - [id number]
== END 2019-04-05 13:12 | disposition home or self-care (01) ==
LOC: CLSP 10:08
PROVIDERS: Family Provider Family Medicine; PCP Family Medicine; Referring Provider Internal Medicine Cardiovascular Disease; Visit Provider Internal Medicine Cardiovascular Disease
DX: I48.0 Paroxysmal atrial fibrillation (principal); I48.92 Unspecified atrial flutter; I42.9 Cardiomyopathy, unspecified; Q21.1 Atrial septal defect; E05.90 Thyrotoxicosis, unspecified without thyrotoxic crisis or storm; E66.01 Morbid (severe) obesity due to excess calories; Z68.41 Body mass index [BMI] 40.0-44.9, adult; G47.33 Obstructive sleep apnea (adult) (pediatric); F17.220 Nicotine dependence, chewing tobacco, uncomplicated; Z79.82 Long term (current) use of aspirin; Z79.01 Long term (current) use of anticoagulants; Z79.02 Long term (current) use of antithrombotics/antiplatelets
CPT/HCPCS: 36415; 80048; 92960; 93005; J7040

== ENCOUNTER → 2019-06-09 20:28 | Outpatient (CLI) | payer OTHER, SELFPAY ==
[2019-05-12 06:49] VITALS: BMI 41.6
== END ==
PROVIDERS: Family Provider Family Medicine; PCP Family Medicine; Referring Provider Internal Medicine Critical Care Medicine; Visit Provider Internal Medicine Critical Care Medicine
DX: G47.33 Obstructive sleep apnea (adult) (pediatric) (principal)
CPT/HCPCS: 95811

== ENCOUNTER → 2019-10-31 13:00 | Outpatient (CLI) | payer OTHER, SELFPAY ==
[2019-10-12 11:23] VITALS: BMI 42.7
== END ==
PROVIDERS: Family Provider Family Medicine; PCP Family Medicine; Referring Provider Internal Medicine Critical Care Medicine; Visit Provider Internal Medicine Critical Care Medicine
DX: G47.33 Obstructive sleep apnea (adult) (pediatric) (principal); I43 Cardiomyopathy in diseases classified elsewhere; E66.01 Morbid (severe) obesity due to excess calories
CPT/HCPCS: 98960; G0463

== ENCOUNTER → 2020-11-29 12:06 | Outpatient (CLI) | payer OTHER, SELFPAY ==
[2020-07-04 14:11] VITALS: BMI 41.5
[2020-11-29 13:04] LABS: Anion Gap 4 (5-15); BUN 14 mg/dL (7-18); BUN/Creat Ratio 18.8 RATIO (10-20); Calcium,Total 9.2 mg/dL (8.5-10.1); Chloride 104 mmol/L (98-107); Creatinine, Serum 0.74 mg/dL (0.70-1.30); EST Glomerular Filtration Rate 117 mL/min (>60); Est Glom Filt Rate - Afr Amer 141 mL/min (>60); Glucose 94 mg/dL (74-106); Sodium Level 136 mmol/L (136-145)
== END ==
PROVIDERS: PCP Family Medicine
DX: Z51.81 Encounter for therapeutic drug level monitoring (principal); Z79.899 Other long term (current) drug therapy
CPT/HCPCS: 36415; 80048

== ENCOUNTER → 2021-12-02 09:54 | Outpatient (CLI) | payer OTHER, SELFPAY ==
[2021-12-02 11:01] LABS: Anion Gap 7 (5-15); BUN 14 mg/dL (7-18); BUN/Creat Ratio 17.4 RATIO (10-20); Calcium,Total 9.1 mg/dL (8.5-10.1); Chloride 100 mmol/L (98-107); EST Glomerular Filtration Rate 106 mL/min (>60); Est Glom Filt Rate - Afr Amer 129 mL/min (>60); Glucose 119 mg/dL (74-106); Potassium 4.2 mmol/L (3.5-5.1); Sodium Level 140 mmol/L (136-145)
== END ==
PROVIDERS: PCP Family Medicine
DX: I48.91 Unspecified atrial fibrillation (principal)
CPT/HCPCS: 36415; 80048

== ENCOUNTER → 2022-07-22 | Outpatient (CLI) | payer OTHER, SELFPAY ==
[2022-07-22 16:21] LABS: Anion Gap 5 (5-15); BUN 13 mg/dL (7-18); BUN/Creat Ratio 16.3 RATIO (10-20); Calcium,Total 9.2 mg/dL (8.5-10.1); Chloride 106 mmol/L (98-107); EST Glomerular Filtration Rate 107 mL/min (>60); Est Glom Filt Rate - Afr Amer 130 mL/min (>60); Glucose 92 mg/dL (74-106); Potassium 3.9 mmol/L (3.5-5.1); Sodium Level 139 mmol/L (136-145)
== END | disposition home or self-care (01) ==
LOC: LAB 15:08
PROVIDERS: PCP Family Medicine
DX: I48.91 Unspecified atrial fibrillation (principal)
CPT/HCPCS: 36415; 80048

== ENCOUNTER → 2023-05-24 | Outpatient (CLI) | payer OTHER, SELFPAY ==
[2023-05-24 14:37] LABS: Free T3 2.7 pg/mL (2.18-3.98); Thyroid Stim Hormone (TSH) 2.28 uIU/mL (0.358-3.74)
[2023-05-28 07:08] LABS: Thyroid Stim Immunoglob <0.10 IU/L (0.00-0.55)
== END | disposition home or self-care (01) ==
PROVIDERS: PCP Family Medicine
DX: E05.00 Thyrotoxicosis with diffuse goiter without thyrotoxic crisis or storm (principal)
CPT/HCPCS: 36415; 84439; 84443; 84445; 84481

== ENCOUNTER → 2023-09-24 | Outpatient (CLI) | payer OTHER, SELFPAY ==
[2023-09-24 11:12] LABS: Free T3 2.8 pg/mL (2.18-3.98); T4 Free Direct 0.93 ng/dL (0.76-1.46); Thyroid Stim Hormone (TSH) 3.02 uIU/mL (0.358-3.74)
[2023-09-26 15:07] LABS: Thyroid Stim Immunoglob <0.10 IU/L (0.00-0.55)
== END | disposition home or self-care (01) ==
DX: E05.00 Thyrotoxicosis with diffuse goiter without thyrotoxic crisis or storm (principal)
CPT/HCPCS: 36415; 84439; 84443; 84445; 84481

== ENCOUNTER → 2023-11-17 | Outpatient (CLI) | payer OTHER, SELFPAY ==
[2023-11-17 11:07] LABS: Absolute Lymphocyte Count 2.73 X10^3/uL (0.83-4.51); Absolute Neutrophil Count 3.8 X10^3/uL (2.0-7.7); Basophil# 0.04 X10^3/uL; Basophil% 0.6 % (0-1); Eosinophil# 0.08 X10^3/uL; Eosinophils% 1.2 % (0-5); Hematocrit 46.6 % (40-54); Lymphocyte # 2.73 X10^3/ul (0.83-4.51); Lymphocyte % 39.7 % (19-41); Mean Corp Hgb Conc 34.3 g/dL (32-36); Mean Corpuscular Hgb 29.4 pg (27.0-32.0); Mean Corpuscular Volume 85.5 fL (80-94); Mean Platelet Vol. 9.2 fl (6.2-12.0); Monocyte# 0.22 X10^3/uL; Monocyte% 3.2 % (0-10); NRBC Flagged by Analyzer 0 % (0-5); Neutrophil # 3.78 X10^3/uL (2.7-7.7); Neutrophil % 54.9 % (47-70); Platelet Count 258 K/mm3 (150-450); RBC Distribution Width CV 12.7 % (11.6-14.6); RBC Distribution Width SD 39.5 fl (35.1-43.9); Red Blood Count 5.45 M/mm3 (4.6-6.2); White Blood Count 6.9 K/mm3 (4.4-11.0)
[2023-11-17 11:38] LABS: International Normalized Ratio 1.1; Prothrombin Time (Protime)PT. 14.2 SECONDS (11.7-14.9)
[2023-11-17 11:39] LABS: Partial Thromboplast Time 32.9 Seconds (24.1-36.2)
[2023-11-17 11:53] LABS: AST(SGOT) 29 U/L (15-37); Alanine Aminotransfer ALT/SGPT 60 U/L (16-61); Albumin, Serum 3.4 g/dL (3.2-5.0); Alkaline Phosphatase 59 U/L (45-117); Anion Gap 9 (5-15); BUN 11 mg/dL (7-18); BUN/Creat Ratio 12.8 RATIO (10-20); Calcium,Total 8.5 mg/dL (8.5-10.1); Chloride 106 mmol/L (98-107); Cholesterol 145 mg/dL (200); Creatinine, Serum 0.86 mg/dL (0.70-1.30); EST Glomerular Filtration Rate 98 mL/min (>60); Est Glom Filt Rate - Afr Amer 119 mL/min (>60); Globulin 3.5 g/dL (2.2-4.2); Glucose 208 mg/dL (74-106); High Density Lipoprotein 25 mg/dL; Potassium 4.3 mmol/L (3.5-5.1); Protein, Total 6.9 g/dL (6.4-8.2); Sodium Level 139 mmol/L (136-145); Triglycerides 115 mg/dL; Very Low Density Lipoprotein 23 mg/dL (5-40)
== END | disposition home or self-care (01) ==
LOC: LAB 10:25
PROVIDERS: Visit Provider Family Medicine
DX: I48.0 Paroxysmal atrial fibrillation (principal); E78.5 Hyperlipidemia, unspecified; E05.90 Thyrotoxicosis, unspecified without thyrotoxic crisis or storm
CPT/HCPCS: 36415; 80053; 80061; 84443; 85025; 85610; 85730

== ENCOUNTER → 2024-02-05 | Outpatient (CLI) | payer OTHER, SELFPAY ==
[2024-02-05 11:00] LABS: Free T3 2.9 pg/mL (2.18-3.98); Thyroid Stim Hormone (TSH) 2.14 uIU/mL (0.358-3.74)
== END | disposition home or self-care (01) ==
DX: E05.00 Thyrotoxicosis with diffuse goiter without thyrotoxic crisis or storm (principal)
CPT/HCPCS: 36415; 84439; 84443; 84481

== ENCOUNTER → 2024-06-23 | Outpatient (CLI) | payer OTHER, SELFPAY ==
[2024-06-23 15:05] LABS: Absolute Lymphocyte Count 2.96 X10^3/uL (0.83-4.51); Absolute Neutrophil Count 7.5 X10^3/uL (2.0-7.7); Basophil# 0.08 X10^3/uL; Basophil% 0.7 % (0-1); Eosinophil# 0.13 X10^3/uL; Eosinophils% 1.1 % (0-5); Hematocrit 43.6 % (40-54); Hemoglobin 14.6 g/dL (13.0-16.5); Lymphocyte # 2.96 X10^3/ul (0.83-4.51); Mean Corp Hgb Conc 33.5 g/dL (32-36); Mean Corpuscular Hgb 28.6 pg (27.0-32.0); Mean Corpuscular Volume 85.5 fL (80-94); Mean Platelet Vol. 9.3 fl (6.2-12.0); Monocyte# 0.65 X10^3/uL; Monocyte% 5.7 % (0-10); NRBC Flagged by Analyzer 0 % (0-5); Neutrophil # 7.53 X10^3/uL (2.7-7.7); Neutrophil % 66.3 % (47-70); Platelet Count 354 K/mm3 (150-450); RBC Distribution Width CV 12.9 % (11.6-14.6); RBC Distribution Width SD 40.1 fl (35.1-43.9); White Blood Count 11.4 K/mm3 (4.4-11.0)
[2024-06-23 15:46] LABS: AST(SGOT) 39 U/L (15-37); Alanine Aminotransfer ALT/SGPT 87 U/L (16-61); Albumin, Serum 3.7 g/dL (3.2-5.0); Alkaline Phosphatase 69 U/L (45-117); Anion Gap 6 (5-15); BUN 16 mg/dL (7-18); BUN/Creat Ratio 18.6 RATIO (10-20); Calcium,Total 9.6 mg/dL (8.5-10.1); Chloride 110 mmol/L (98-107); Cholesterol 190 mg/dL (200); Creatinine, Serum 0.86 mg/dL (0.70-1.30); EST Glomerular Filtration Rate 97 mL/min (>60); Est Glom Filt Rate - Afr Amer 118 mL/min (>60); Free T3 2.8 pg/mL (2.18-3.98); Globulin 3.6 g/dL (2.2-4.2); Glucose 95 mg/dL (74-106); High Density Lipoprotein 34 mg/dL; Magnesium 2.1 mg/dL (1.6-2.6); PSA,Total - Annual Screen 2.18 ng/mL (0.00-4.00); Potassium 4.1 mmol/L (3.5-5.1); Protein, Total 7.3 g/dL (6.4-8.2); Sodium Level 140 mmol/L (136-145); T4 Free Direct 0.92 ng/dL (0.76-1.46); Thyroid Stim Hormone (TSH) 1.66 uIU/mL (0.358-3.74); Triglycerides 187 mg/dL; Very Low Density Lipoprotein 37 mg/dL (5-40)
[2024-06-26 15:08] LABS: Thyroglobulin Antibody < 1.0 IU/mL (0.0-0.9); Thyroid Peroxidase AB 50 IU/mL (0-34)
== END | disposition home or self-care (01) ==
PROVIDERS: PCP Family Medicine; Referring Provider Family Medicine; Visit Provider Family Medicine
DX: I48.91 Unspecified atrial fibrillation (principal); E05.90 Thyrotoxicosis, unspecified without thyrotoxic crisis or storm; Z12.5 Encounter for screening for malignant neoplasm of prostate
CPT/HCPCS: 36415; 80053; 80061; 83735; 84153; 84439; 84443; 84481; 85025; 86376; 86800; G0103

== ENCOUNTER → 2024-07-08 | Outpatient (CLI) | payer OTHER, SELFPAY ==
--- NOTE | 2024-07-08 08:16 | US_ITS ---
STUDY: ABDOMINAL ULTRASOUND - RIGHT UPPER QUADRANT; ELASTOGRAPHY REASON FOR VISIT: Male, 58 years old. Elevated liver enzymes. TECHNIQUE: Ultrasound evaluation of the right upper quadrant was performed with real-time and static rey-scale imaging. Point quantification shear wave elastography was performed ([employer]). TECHNICAL QUALITY: Limited. Examination limited due to obesity. COMPARISON: None. FINDINGS: Liver: The liver is enlarged and measures 22 cm. There is increased echogenicity consistent with fatty infiltration. The bile ducts are within normal limits. There is hepatic color flow. The direction of portal flow is hepatopetal. There is no demonstrated mass lesion. Median liver stiffness measured 7.9 kPa. Gallbladder: Normal distended gallbladder. The gallbladder wall measures 1.8 mm. There is a negative sonographic Castellanos''s sign. There is no pericholecystic fluid. There is a solitary echogenic gallstone within the gallbladder. Common Bile Duct (C.B.D.): The common bile duct measures 6.9 mm. Pancreas: There is normal echogenicity of the visualized pancreas. There is no demonstrated pancreatic mass or cyst. Right Kidney: Normal size of the right kidney. The right kidney measures 12.3 cm x 5.6 x 6.9 cm. Normal renal cortex. The right cortex measures 1. cm. There is no demonstrated renal mass or cyst. There is no right hydronephrosis. US/ABD Limited w/ Elastography IMPRESSION: 1. Liver stiffness measures 7.9 kPa compatible with F2-F3 (Mild to moderate liver fibrosis) Metavir score. Electronically Signed: Tyler Stevens MD at 14:48 EDT ,
== END | disposition home or self-care (01) ==
LOC: US 08:04
PROVIDERS: PCP Family Medicine; Referring Provider Family Medicine; Visit Provider Family Medicine
DX: R74.8 Abnormal levels of other serum enzymes (principal)
CPT/HCPCS: 76705; 76981

== ENCOUNTER → 2024-08-04 | Outpatient (CLI) | payer OTHER, SELFPAY ==
--- NOTE | 2024-08-04 15:05 | RAD_ITS ---
STUDY: X-RAY - RIGHT SHOULDER REASON FOR EXAM: Male, 58 years old. Right shoulder pain. TECHNIQUE: 4 views of the right shoulder. COMPARISON: None. FINDINGS: There is moderate glenohumeral arthrosis with joint space narrowing and osteophyte formation along the inferomedial margin of the humeral head. There is hypertrophic acromioclavicular arthrosis. Normal acromion. Intact humeral head and visualized proximal humerus. The soft tissue structures are unremarkable. There is no demonstrated fracture. Normal visualized pulmonary apex. RAD/Shoulder min 2 Views IMPRESSION: Moderate glenohumeral arthrosis. Hypertrophic acromioclavicular arthrosis. No demonstrated fracture. Electronically Signed: Sal Kaplan MD at 16:09 EDT ,
== END | disposition home or self-care (01) ==
LOC: MTRAD 15:02
PROVIDERS: PCP Family Medicine; Referring Provider Family Medicine; Visit Provider Family Medicine
DX: M25.511 Pain in right shoulder (principal)
CPT/HCPCS: 73030

== ENCOUNTER → 2024-12-12 | Outpatient (CLI) | payer OTHER, SELFPAY ==
[2024-12-12 12:49] LABS: Absolute Lymphocyte Count 2.66 X10^3/uL (0.83-4.51); Absolute Neutrophil Count 5.9 X10^3/uL (2.0-7.7); Basophil# 0.08 X10^3/uL; Basophil% 0.9 % (0-1); Eosinophil# 0.14 X10^3/uL; Eosinophils% 1.5 % (0-5); Hematocrit 43.7 % (40-54); Hemoglobin 14.8 g/dL (13.0-16.5); Lymphocyte # 2.66 X10^3/ul (0.83-4.51); Lymphocyte % 28.4 % (19-41); Mean Corp Hgb Conc 33.9 g/dL (32-36); Mean Corpuscular Hgb 28.5 pg (27.0-32.0); Mean Corpuscular Volume 84.2 fL (80-94); Monocyte# 0.55 X10^3/uL; Monocyte% 5.9 % (0-10); NRBC Flagged by Analyzer 0 % (0-5); Neutrophil # 5.92 X10^3/uL (2.7-7.7); Neutrophil % 63.1 % (47-70); Platelet Count 310 K/mm3 (150-450); RBC Distribution Width CV 12.9 % (11.6-14.6); RBC Distribution Width SD 39.5 fl (35.1-43.9); Red Blood Count 5.19 M/mm3 (4.6-6.2); White Blood Count 9.4 K/mm3 (4.4-11.0)
[2024-12-12 13:22] LABS: ALB/GLOB Ratio 1.2 RATIO (0.9-2.4); AST(SGOT) 15 U/L (15-37); Alanine Aminotransfer ALT/SGPT 33 U/L (16-61); Albumin, Serum 3.8 g/dL (3.2-5.0); Alkaline Phosphatase 58 U/L (45-117); Anion Gap 6 (5-15); BUN 10 mg/dL (7-18); BUN/Creat Ratio 12.1 RATIO (10-20); Chloride 105 mmol/L (98-107); Creatinine, Serum 0.83 mg/dL (0.70-1.30); EST Glomerular Filtration Rate 102 mL/min (>60); Est Glom Filt Rate - Afr Amer 123 mL/min (>60); Free T3 2.6 pg/mL (2.18-3.98); Globulin 3.3 g/dL (2.2-4.2); Glucose 95 mg/dL (74-106); Potassium 4.2 mmol/L (3.5-5.1); Protein, Total 7.1 g/dL (6.4-8.2); Sodium Level 136 mmol/L (136-145); T4 Free Direct 1.04 ng/dL (0.76-1.46)
== END | disposition home or self-care (01) ==
LOC: LAB 12:13
PROVIDERS: PCP Family Medicine
DX: E05.00 Thyrotoxicosis with diffuse goiter without thyrotoxic crisis or storm (principal)
CPT/HCPCS: 36415; 80053; 84439; 84443; 84481; 85025

== ENCOUNTER 2025-05-26 10:58 | Outpatient (CLI) | payer OTHER, SELFPAY ==
--- OUTSIDE RECORDS SUMMARY | 2025-05-26 11:09 | XMS RPT_ITS | CCD ---
Author Organization [facility] Care Team Providers Care Insurance Follow Up Specialist Name Role Phone Luis M Gonzalez Primary Care Provider [phone] Curry Banda Primary Care Provider [phone] Luis M Gonzalez Primary Care Provider [phone] Curry Banda Primary Care Unavailable GERBER, PELON Consulting Unavailable GERBER, PELON Attending Unavailable GERBER, PELON Referring Unavailable Banda, Curry Primary Care Unavailable GERBER, PELON Consulting Unavailable Banda, Curry Attending Unavailable Banda, Curry Referring Unavailable Banda, Curry Primary Care Unavailable Banda, Curry Attending Unavailable Banda, Curry Referring Unavailable Alvina HYDROCHLORIC ACID OPERATOR, Paulina Attending Unavailable Banda, Curry Referring Unavailable Banda, Curry Primary Care Unavailable Banda, Curry Primary Care Unavailable Banda, Curry Attending Unavailable Banda, Curry Referring Unavailable FERNANDO GARCIA Attending Unavailable BANDA, CURRY Primary Care Unavailable JEANETTE DIXON Attending Unavailable DESTINYJEANETTE CHARLES Referring Unavailable BANDA, CURRY Primary Care Unavailable JEANETTE DIXON Attending Unavailable DESTINYJEANETTE CHARLES Referring Unavailable BANDA, CURRY Primary Care Unavailable JEANETTE DIXON Attending Unavailable BANDA, CURRY Primary Care Unavailable Medications Current Medications Medication Drug Class(es) Dates Sig (Normalized) Sig (Original) aspirin 81 mg delayed release oral tablet (20 sources) Platelet Aggregation Inhibitor, Nonsteroidal Anti-inflammatory Drug Start: 02-28-2019 take 1 tablet by mouth once daily Aspirin (Adult Aspirin Regimen) 81 mg tablet,delayed release (DR/EC) Active 81 MG PO DAILY February 27, 2019 11:00pm Start: 10-09-2013 End: 12-02-2018 take 81 mg by mouth once daily Aspirin Discontinued 81 MG PO DAILY October 09, 2013 12:00am December 02, 2018 4:31pm End: 10-22-2023 take 1 capsule by mouth in the morning Aspirin 81 MG capsule Take 81 mg by mouth in the morning. 0 10/22/2023 Discontinued cholecalciferol 0.125 mg oral tablet (20 sources) Vitamin D cholecalciferol (D3-5) 5,000 Units tablet Take by mouth daily. Active ubidecarenone 100 mg oral capsule (3 sources) take 1 tablet by mouth in the morning coenzyme Q-10 100 MG capsule Take 1 tablet by mouth in the morning. 0 Active take 1 tablet by mouth once cale y Coenzyme Q10 (COQ-10) 100 MG CAPS Take 1 tablet by mouth daily 0 Active docosahexaenoic acid 120 mg / eicosapentaenoic acid 180 mg oral capsule (20 sources) take 1 capsule by mouth in the morning omega-3 (Fish Oil) 1000 MG capsule Take 1,000 mg by mouth in the morning. Active dofetilide 0.5 mg oral capsule (20 sources) Antiarrhythmic Start: 4 End: 5 take 1 capsule by mouth twice daily dofetilide (Tikosyn) 500 MCG capsule Take 1 capsule (500 mcg) by mouth 2 times daily. 180 capsule 1 12/08/2024 Active Start: 10-12-2019 End: 03-16-2024 take 1 capsule by mouth every twelve hours dofetilide (Tikosyn) 500 MCG capsule Take 1 capsule by mouth in the morning and 1 capsule in the evening. 0 09/16/2022 Active Start: 07-17-2019 take 1 capsule by mo ut every twelve hours dofetilide (TIKOSYN) 500 MCG capsule Take 1 capsule by mouth every 12 hours 180 capsule 0 07/17/2019 Active Start: 06-30-2019 take 1 capsule by mo uth every twelve hours dofetilide (TIKOSYN) 500 MCG capsule Take 1 capsule by mouth every 12 hours 60 capsule 3 06/30/2019 Active Start: 06-27-2019 dofetilide (TI KOSYN) capsule 500 mcg [id number] C- MN PO (1 source) GLUCOSAMINE-DEMETRIS DROIT-VIT C-MN PO Take by mouth daily. 0 Active KRILL OIL PO (20 sources) KRILL OIL PO Dl e by mouth daily. Active KRILL OIL PO Dl e by mouth daily. 0 Active magnesium hydroxide 80 mg/ml oral suspension (1 source) Start: 06-27-2019 magnesium hydr oxide (MILK OF MAGNESIA) 400 MG/5ML suspension 30 mL magnesium oxide 400 mg oral tablet (20 sources) take 2 tablets by mouth once daily magnesium oxide (Mag-Ox) 400 MG tablet Take 400 mg by mouth See administration instructions. 2 pills once a day Active take 1 tablet by mouth once cale y magnesium oxide (MAG-OX) 400 MG tablet Take 400 mg by mouth daily 0 Active methIMAzole 5 mg oral tablet (20 sources) Thyroid Hormone Synthesis Inhibitor Start: 10-28-2023 End: 06-27-2025 take 0.5 tablet by mouth once daily in the morning methIMAzole (Tapazole) 5 MG tablet Indications: Graves disease Take 0.5 tablets (2.5 mg) by mouth every morning. 45 tablet 3 06/27/2024 06/27/2025 Active Start: 10-09-2013 End: 10-28-2023 take 5 mg by mouth once daily Methimazole Active 5 MG PO DAILY October 09, 2013 12:00am metoprolol tartrate 25 mg oral tablet (20 sources) beta-Adrenergic Travis Start: 11-04-2022 End: 11-28-2024 take 1 tablet by mouth twice daily metoprolol tartrate (Lopressor) 25 MG tablet Take 1 tablet (25 mg) by mouth 2 times daily. 60 tablet 5 11/29/2023 Active Start: 06-27-2019 End: 06-29-2019 metoprolol tartrate (LOPRESS OR) tablet 25 mg Start: 04-18-2019 End: 04-19-2019 take 75 mg by mouth twice daily Metoprolol Tartrate Active 75 MG PO TWICE A DAY April 19, 2019 9:42am Start: 07-29-2018 End: 04-18-2019 take 50 mg by mouth twice daily Metoprolol Tartrate Discontinued 50 MG PO TWICE A DAY 60 July 28, 2018 11:00pm April 18, 2019 12:39pm End: 06-30-2019 metoprolol tartrate (LOPRESS OR) 50 MG tablet Take 25 mg by mouth 2 times daily 0 06/30/2019 Discontinued (Stop Taking at Discharge) naproxen 250 mg oral tablet (20 sources) Nonsteroidal Anti-inflammatory Drug naproxen (Naprosy n) 250 MG tablet Take 250 mg by mouth if needed for mild pain (1-3). Active omega-3 acid ethyl esters (prison) 1000 mg oral capsule (2 sources) take 1 capsule by mouth once daily Inman-3 Fatty Acids (FISH OIL) 1000 MG CAPS Take 1,000 mg by mouth daily 0 Active Turmeric extract (20 sources) TURMERIC PO Take by mouth daily. Active TURMERIC PO Take by mouth daily. 0 Active ubidecarenone 100 mg / vitamin e 5 unt oral capsule (20 sources) take 1 tablet by mouth in the morning coenzyme Q-10 100 MG capsule Take 1 tablet by mouth in the morning. Active vitamin b12 1 mg oral tablet (20 sources) Vitamin B12 take 1 tablet by mouth in the morning cyanocobalamin (Vitamin B-12) 1000 MCG tablet Take 1,000 mcg by mouth in the morning. Active vitamin B-12 (CY ANOCOBALAMIN) 100 MCG tablet Take 50 mcg by mouth daily 0 Active vitamin e 450 mg oral capsule (20 sources) take 1 capsule by mo ut in the morning alpha tocopherol (Vitamin E) 1000 units capsule Take 1,000 Units by mouth in the morning. Active Completed/Discontinued Medications Medication Drug Class(es) Dates Sig (Normalized) Sig (Original) acetaminophen 325 mg oral tablet (20 sources) Start: 12-02-2023 End: 12-02-2023 take 1 tablet by mouth every four hours as needed for pain acetaminophen (Tylenol) tablet 650 mg acetaminophen (T ylenol) 500 MG tablet Take 500 mg by mouth as needed. Extra strength Active apixaban 5 mg oral tablet (20 sources) Factor Xa Inhibitor Start: 10-22-2023 End: 12-08-2024 take 1 tablet by mouth twice daily apixaban (Eliquis) 5 MG tablet Take 1 tablet (5 mg) by mouth 2 times daily. 60 tablet 12/10/2023 12/08/2024 Discontinued (Therapy completed) Start: 07-29-2018 End: 07-04-2020 take 1 tablet by mouth twice daily Apixaban (Eliquis) 5 mg tablet Discontinued 5 MG PO TWICE A DAY 90 July 21, 2019 7:05am July 04, 2020 1:14pm ciprofloxacin 500 mg oral tablet (4 sources) Quinolone Antimicrobial Start: 10-11-2013 End: 12-01-2017 take 750 mg by mouth twice daily Ciprofloxacin Hcl Discontinued 750 MG PO TWICE A DAY October 11, 2013 12:00am December 01, 2017 8:34pm clopidogrel 75 mg oral tablet (8 sources) P2Y12 Platelet Inhibitor Start: 04-04-2019 End: 05-12-2019 take 75 mg by mouth once daily Clopidogrel Discontinued 75 MG PO DAILY April 03, 2019 11:00pm May 12, 2019 7:37am Start: 02-28-2019 End: 03-13-2019 take 1 tablet by mouth once daily Clopidogrel (Plavix) 75 mg tablet Discontinued 75 MG PO DAILY February 27, 2019 11:00pm March 13, 2019 3:00pm flecainide acetate 150 mg oral tablet (12 sources) Antiarrhythmic Start: 12-26-2018 End: 05-12-2019 take 150 mg by mouth every twelve hours Flecainide Discontinued 150 MG PO Q12H 60 April 19, 2019 8:47am May 12, 2019 7:37am Start: 12-02-2018 End: 12-26-2018 take 100 mg by mouth every twelve hours Flecainide Discontinued 100 MG PO Q12H 60 December 02, 2018 12:00am December 26, 2018 5:00pm oxyCODONE hydrochloride 5 mg oral tablet (4 sources) Opioid Agonist Start: 10-11-2013 End: 12-01-2017 take 10 mg by mouth every four hours as needed Oxycodone Discontinued 10 MG PO EVERY 4 HOURS NEEDED October 11, 2013 12:00am December 01, 2017 8:33pm pantoprazole 40 mg delayed release oral tablet (10 sources) Proton Pump Inhibitor Start: 12-02-2023 End: 05-16-2024 take 1 tablet by mouth once daily before breakfast pantoprazole (Protonix) 40 MG EC tablet Take 1 tablet (40 mg) by mouth every morning (before breakfast). Do not crush, chew, or split. 30 tablet 12/02/2023 05/16/2024 Discontinued (Therapy completed) perflutren lipid microspheres (DEFINITY) injection 0.48 mg (1 source) Start: 08-30-2019 End: 08-30-2019 perflutren lipid microspheres (DEFINITY) injection 0.48 mg perflutren lipid microspheres (Definity) injection 1.65 mg (2 sources) Start: 11-03-2024 End: 11-03-2024 1.65 mg (1.5 mL), IntraVENous, IMG once PRN, other, Starting on Wed11/03/24 at 1509, For 1 dose, CV Procedural Medications, Once activated, final concentration equals 1.1 mg/mL 5 ml sodium chloride 9 mg/ml injection (10 sources) Start: 12-02-2023 End: 12-02-2023 sodium chloride 0.9 % infusion Start: 12-02-2023 End: 12-02-2023 take 5-40 mL intravenously every twelve hours sodium chloride 0.9% (NS) flush 5-40 mL Start: 06-29-2019 0.9 % sodium c hloride infusion Start: 06-27-2019 sodium chlorid e flush 0.9 % injection 10 mL Problems Active Problems Problem Classification Problem Date Documented Da te Episodic/Chronic Cardiac and circulatory congenital anomalies (4 sources) Patent foramen ovale; Translations: [Atrial septal defect] 04-05-2019 Chronic Cardiac dysrhythmias (20 sources) Atrial fibrillation; Translations: [Unspecified atrial fibrillation] Onset: 02-06-2017 06-28-2019 Chronic Disorders of lipid metabolism (20 sources) Hyperlipidemia; Translations: [Hyperlipidemia, unspecified] Onset: 01-01-2016 09-17-2022 Chronic Other gastrointestinal disorders (20 sources) Irritable bowel syndrome with diarrhea; Translations: [Irritable bowel syndrome with diarrhea] Onset: 09-27-2015 09-17-2022 Chronic Other infections; including parasitic (4 sources) History of sepsis; Translations: [Personal history of other infectious and parasitic diseases] 01-04-2020 Episodic Other lower respiratory disease (4 sources) H/O: pneumonia; Translations: [Personal history of pneumonia (recurrent)] 01-04-2020 Episodic Other nutritional; endocrine; and metabolic disorders (1 source) Morbid obesity; Translations: [Morbid (severe) obesity due to excess calories] Chronic Other nutritional; endocrine; and metabolic disorders (20 sources) Obesity; Translations: [Obesity, unspecified] Onset: 01-02-2016 09-17-2022 Chronic Other nutritional; endocrine; and metabolic disorders (3 sources) Obesity caused by energy imbalance; Translations: [Morbid (severe) obesity due to excess calories] 04-05-2019 Chronic Montse-; endo-; and myocarditis; cardiomyopathy (except that caused by tuberculosis or sexually transmitted disease) (5 sources) Cardiomyopathy; Translations: [Cardiomyopathy associated with another disorder] 04-05-2019 Chronic Residual codes; unclassified (20 sources) Obstructive sleep apnea syndrome; Translations: [Obstructive sleep apnea (adult) (pediatric)] Onset: 06-28-2019 06-28-2019 Chronic Residual codes; unclassified (4 sources) Hypersomnia; Translations: [Hypersomnia, unspecified] 01-04-2020 Chronic Residual codes; unclassified (4 sources) History of operative procedure on foot; Translations: [Other specified postprocedural states] 01-04-2020 Episodic Substance-related disorders (4 sources) Nicotine dependence; Translations: [Nicotine dependence, unspecified, uncomplicated] 04-05-2019 Chronic Thyroid disorders (20 sources) Hyperthyroidism; Translations: [Thyrotoxicosis, unspecified without thyrotoxic crisis or storm] Onset: 12-05-2010 09-17-2022 Chronic Past or Other Problems Problem Classification Problem Date Documented Date Episodic/Chronic Diabetes mellitus without complication (20 sources) Impaired fasting glycemia; Translations: [Impaired fasting glucose] Onset: 01-01-2016 09-17-2022 Episodic Nonspecific chest pain (13 sources) Chest pain; Translations: [Chest pain, unspecified] Onset: 11-03-2024 04-05-2019 Episodic Other liver diseases (1 source) Abnormal levels of other serum enzymes; Translations: [Abnormal levels of other serum enzymes] Onset: 07-25-2024 Episodic Other non-traumatic joint disorders (1 source) Pain in right shoulder; Translations: [Pain in right shoulder] Onset: 08-28-2024 Episodic Other screening for suspected conditions (not mental disorders or infectious disease) (20 sources) Other specified abnormal findings of blood chemistry; Translations: [Other abnormal blood chemistry] Onset: 01-01-2016 09-17-2022 Episodic Residual codes; unclassified (4 sources) History of cardioversion; Translations: [Other specified postprocedural states] Onset: 04-06-2019 01-04-2020 Episodic Residual codes; unclassified (4 sources) History of cardiac catheterization; Translations: [Other specified postprocedural states] Onset: 03-06-2019 01-04-2020 Episodic Results Test Name Value Interpretation Reference Range Facility Office Visiton 05-21-2025 Follow-up visit [id number] Jorgito Fraga 1965 Date Provider Department Center 05/21/2025 FERNANDO XAVIER MG SB END None Family History Problem Relation Age of Onset Heart disease Maternal Grandmother No Known Problems Brother Pancreatic cancer Father Hypertension Father Arthritis Paternal Grandmother Cancer Maternal Grandfather Arthritis Father Cancer Mother's Sister Alcohol abuse Mother's Sister Diabetes type II Mother No Known Problems Sister Multiple sclerosis Father's Brother No Known Problems Father's Sister Heart disease Mother's Brother Family Status - Relation Status Age at Maternal Grandmother Brother Father Alive Paternal Grandmother Maternal Grandfather Mother's Sister Alive Mother Alive Sister Father's Brother Father's Sister Mother's Brother Alive Level of Service:55645 VT OFFICE/OUTPATIENT ESTABLISHED MOD MDM 30 MIN Reason for Visit and Comments: Graves' Disease [141] Follow-up [665888] [facility] Progress Noteon 05-21-2025 Progress Note . Visit type: Established patient Reason for Visit: Graves' Disease and Follow-up Assessment and Plan 1. Graves disease - TSH - T4, free - T3, free - Hepatic function panel No follow-ups on file. Discussed with patient Nl thyroid function Nl thyroid structure Discussed with patient potential side effects and monitoring necessary of antithyroid medication Discussed with patient signs and symptoms of hyperthyroidism and hypothyroidism and to call if develops these parrish Check tft'sd Now Call or my chart for result See back in 6 mos Subjective HPI Seeing for graves disease Taking methimazole 5 mg 1/2 daily Has metoprolol for tachycardia Has failed remission from graves with cessation of atms Has noted no changes in his eyes Heat intolerance Rare palpitations Occ tremor No trouble swallowing except more dry foods Has carmen and uses cpap Review of Systems Constitutional: Negative for appetite change, fatigue (varies) and unexpected weight change. Respiratory: Positive for apnea (carmen). Negative for shortness of breath. Cardiovascular: Positive for palpitations (intermittent, rare). Gastrointestinal: Negative for constipation, diarrhea, nausea and vomiting. Endocrine: Positive for heat intolerance. Neurological: Negative for tremors. Psychiatric/Behaviora l: Positive for sleep disturbance. Allergies[1] Current Medications[2] Medical History[3] Social History Tobacco Use Smoking status: Former Smokeless tobacco: Current Types: Snuff Substance Use Topics Alcohol use: Not Currently Surgical History[4] Family History[5] Objective BP 132/85 (BP Location: Right arm, Patient Position: Sitting, BP Cuff Size: Large adult) Pulse 66 Ht 6' 2 (1.88 m) Wt (!) 336 lb 12.8 oz (153 kg) BMI 43.24 kg/m? Physical Exam Vitals and nursing note reviewed. Constitutional: Appearance: Normal appearance. He is obese. HENT: Head: Normocephalic and atraumatic. Eyes: Extraocular Movements: Extraocular movements intact. Comments: No proptosis or exophthalmos Neck: Comments: Thyroid 20-25 grams No nodules Cardiovascular: Rate and Rhythm: Normal rate and regular rhythm. Pulmonary: Effort: Pulmonary effort is normal. Musculoskeletal: General: No swelling. Normal range of motion. Cervical back: Normal range of motion. Skin: General: Skin is warm and dry. Neurological: General: No focal deficit present. Mental Status: He is alert and oriented to person, place, and time. Comments: Mild fine extremity tremors Psychiatric: Mood and Affect: Mood normal. Behavior: Behavior normal. Data Reviewed and Summarized Labs: THYROID STIMULATING HORMONE Date Value Ref Range Status 12/12/2024 2.89 0.35 - 4.94 uIU/mL Final Auto WBC Date Value Ref Range Status 11/17/2023 6.9 3.6 - 10.7 10*3/uL Final Hemoglobin Date Value Ref Range Status 11/17/2023 16.0 13.0 - 18.0 g/dL Final Hematocrit Date Value Ref Range Status 11/17/2023 46.6 40.0 - 52.0 % Final Platelets Date Value Ref Range Status 11/17/2023 258 140 - 440 10*3/uL Final MCV Date Value Ref Range Status 11/17/2023 85.5 80.0 - 98.0 fL Final SODIUM Date Value Ref Range Status 12/21/2024 136 136 - 145 mmol/L Final POTASSIUM Date Value Ref Range Status 12/21/2024 4.2 3.5 - 5.1 mmol/L Final CHLORIDE Date Value Ref Range Status 12/21/2024 105 98 - 107 mmol/L Final CARBON DIOXIDE Date Value Ref Range Status 12/21/2024 25 22 - 29 mmol/L Final UREA NITROGEN Date Value Ref Range Status 12/21/2024 10 9 - 23 mg/dL Final CREATININE Date Value Ref Range Status 12/21/2024 0.83 0.72 - 1.25 mg/dL Final 11/17/2023 0.86 0.66 - 1.25 mg/dL Final 07/29/2022 0.80 Final 12/26/2021 0.80 (A) Final 01/14/2021 0.74 Final 05/23/2020 0.74 0.52 - 1.25 mg/dL Final 01/05/2020 0.84 0.52 - 1.25 mg/dL Final GLUCOSE Date Value Ref Range Status 12/21/2024 95 74 - 100 mg/dL Final CALCIUM Date Value Ref Range Status 12/21/2024 9.0 8.4 - 10.2 mg/dL Final AST (SGOT) Date Value Ref Range Status 12/21/2024 15 <=34 U/L Final ALT Date Value Ref Range Status 12/21/2024 33 <=40 U/L Final TOTAL PROTEIN Date Value Ref Range Status 12/21/2024 12.1 (A) 6.4 - 8.3 g/dL Final BILIRUBIN, TOTAL Date Value Ref Range Status 12/21/2024 1.1 <=1.2 mg/dL Final ALKALINE PHOSPHATASE Date Value Ref Range Status 12/21/2024 58 40 - 150 U/L Final INR Date Value Ref Range Status 11/17/2023 1.1 0.9 - 1.1 Final CHOLESTEROL Date Value Ref Range Status 11/26/2023 145 <=200 mg/dL Final TRIGLYCERIDE Date Value Ref Range Status 11/26/2023 115 <=150 mg/dL Final HDL CHOLESTEROL Date Value Ref Range Status 11/26/2023 25 (A) 40 - 60 mg/dL Final Imaging/Testing: On this date, 05/21/2025 I have spent 35 minutes reviewing previous notes, test results and face to face with the patient discussing the diagnosis and importance of compliance with the treatment plan as well (more content not included)... Normal [facility] Pulmonary Visit Reporton Pulmonary Visit Report [facility] [place] [address] [place] [address] OFFICE VISIT Date of Service: 04/13/25 MR#: [id number] Acct: [id number] Name: JORGITO FRAGA Rep #: [id number] 1 : 1965 Provider: KIET Tinsley Age/Sex: 59/M Location: [facility] – [place].PMW Status: Signed Assessment and Plan Assessment and Plan (1) CARMEN (obstructive sleep apnea): Status: Chronic Comment: AHI 45 on BiPAP 21/17 cmH2O with residual AHI of 1.9 Plan: Empirically reducing pressure to 19/15 cm of water due to significant leak. Monitoring closely having the patient return to the office in 3 months to evaluate compliance report. He has been encouraged to contact our office if he does not tolerate the lower pressure. I also suggested that he may benefit from PAP mask liners. No indication for titration study at this time. He is using and benefiting from PAP therapy. Changes being made are only to increase his comfort, which I believe will increase his overall usage. (2) Atrial fibrillation: Status: Chronic Qualifiers: Atrial fibrillation type: paroxysmal Qualified Code(s): I48.0 - Paroxysmal atrial fibrillation Plan: Complicates exam, plan, care and prognosis. (3) Morbid (severe) obesity due to excess calories: Status: Chronic Plan: Complicates exam, plan, care and prognosis. Continue to encourage healthy weight loss. Plan This note was generated with [employer] dictation software. It may contain incorrect words, spelling, and punctuation that were not noted in checking the note before signing. Plan Details Follow Up: 3 Months HPI 1 Y FU Chief Complaint: Routine follow-up HPI Comments Details: This patient presents to the office today for routine follow-up of his obstructive sleep apnea. He is ambulatory and currently on room air. He is accompanied today by his . He has not been seen in the ED or urgent care for any respiratory illness recently. He has not required any antibiotics or prednisone for any breathing problems. He denies any difficulty with shortness of breath. He denies any wheezing, chest tightness, chest pain or palpitations. He has an occasional cough that is nonproductive. He denies any fever, chills or body aches. He is a lifelong never smoker. He admits that he does not always feel rested with the use of his PAP device. He has difficulty with chronic pain which makes it hard for him to sleep all night. 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 He does have difficulty with mask leak and always has. He is wondering if it is related to his goatee. He has had difficulty with mask fit. He also feels as though the pressure is a little bit too high. He is not requiring naps and is not nodding off to sleep unintentionally. He denies any difficulty with nocturia. Compliance report for the past 30 days shows 100% compliance with an average use of 4 hours and 20 minutes per night. Current setting is BiPAP 21/17 cmH2O with residual AHI 1.5 events per hour. Leaks to appear to be occurring routinely. 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 Required: No DME Vendor: Rashida Accompanied by: Is patient in pain?: No Allergies No Known Allergies Allergy (Verified 06/26/24 11:44) Medications ???Medication ???Instructions ???Recorded ???Confirmed ???Type aspirin 81 mg tablet,delayed 81 mg PO DAILY 02/28/19 04/13/25 H istory release (Adult Aspirin Regimen) dofetilide 500 mcg capsule PO #180 caps 10/12/19 04/13/25 His tory methimazole 5 mg tablet 2.5 mg PO DAILY 02/17/24 04/13/25 History coenzyme Q10 [CoQ-10] PO QDAY 04/13/25 04/13/25 History krill oil PO QDAY 04/13/25 04/13/25 History magnesium glycinate PO QDAY 04/13/25 04/13/25 History metoprolol tartrate 25 mg tablet 25 mg PO BID PRN 04/13/25 04/13/25 History omega-3 fatty acids [Fish Oil] PO QDAY 04/13/25 04/13/25 History vitamin B complex [B Complex Super] PO QDAY 04/13/25 04/13/25 Histo ry Have you fallen in the past year?: Yes PFSH Medical History (Reviewed 04/13/25 @ 14:32 by Paulina Tinsley HYDROCHLORIC ACID OPERATOR, HYDROCHLORIC ACID OPERATOR-C) Atrial fibrillation History of pneumonia History of sepsis Hypersomnia, unspecified Nicotine dependence Patent foramen ovale Morbid (severe) obesity due to excess calories Hyperthyroidism Paroxysmal atrial fibrillation Surgical History (Reviewed 04/13/25 @ 14:32 by Paulina [place] HYDROCHLORIC ACID OPERATOR, HYDROCHLORIC ACID OPERATOR-C) History of left heart catheterization (0 (more content not included)... [facility] 36on 02-08-2025 36 PC to patient's spouse and gave information, will follow up with PCP for other recommendations and will touch base with names of products if she finds any others [facility] 36 Pt's spouse lvm she received your vm but was able to get all of the information. Pt's spouse is asking for a call back [facility] 36 Pt spouse calling to check status of pt taking restful sleep supplement [facility] 36on 02-02-2025 36 Pt's spouse calling regarding restful sleep all natural sleep medication. Pt's spouse is asking if this will be ok for pt to take the medication [place] [address]on 12-22-2024 36 Reviewed labs, will discuss at next visit [facility] CBC W/Diff, Automatedon - Absolute Lymph 2.66 X10 3/uL Normal 0.83-4.51 [facility] Comment on above: Performed By: #### L 100.0100, L501.30996, L500.4050, L506.0400, L501.9520 #### [facility] [address] [place], [address] Absolute Neut 5.9 X10 3/uL Normal 2.0-7.7 [facility] Comment on above: Performed By: #### L 100.0100, L501.96572, L500.4050, L506.0400, L501.9520 #### [facility] [address] [place], [address] Basophils/100 WBC (Bld) 0.9 % Normal 0-1 [facility] Comment on above: Performed By: #### L 100.0100, L501.77065, L500.4050, L506.0400, L501.9520 #### [facility] [address] [place], [address] Eosinophils/100 WBC (Bld) 1.5 % Normal 0-5 [facility] Comment on above: Performed By: #### L 100.0100, L501.89289, L500.4050, L506.0400, L501.9520 #### [facility] [address] [place], [address] Erythrocyte distribution width (RBC) [Ratio] 12.9 % Normal 11.6-14.6 [facility] Comment on above: Performed By: #### L 100.0100, L501.91207, L500.4050, L506.0400, L501.9520 #### [facility] [address] [place], [address] Hematocrit (Bld) [Volume fraction] 43.7 % Normal 40-54 [facility] Comment on above: Performed By: #### L 100.0100, L501.59711, L500.4050, L506.0400, L501.9520 #### [facility] [address] [place], [address] Hemoglobin (Bld) [Mass/Vol] 14.8 g/dL Normal 13.0-16.5 [facility] Comment on above: Performed By: #### L 100.0100, L501.96191, L500.4050, L506.0400, L501.9520 #### [facility] [address] [place], [address] IG% 0.200 Normal 0.0-0.9 [facility] Comment on above: Result Comment: IG% - Immature Granulocytes (promyelocytes, myelocytes and metamyelocytes) > 1% indicates that a LEFT SHIFT is Present. Performed By: #### L 100.0100, L501.96963, L500.4050, L506.0400, L501.9520 #### [facility] [address] [place], [address] Lymphocytes/100 WBC (Bld) 28.4 % Normal 19-41 [facility] Comment on above: Performed By: #### L 100.0100, L501.28124, L500.4050, L506.0400, L501.9520 #### [facility] [address] [place], [address] MCH (RBC) [Entitic mass] 28.5 pg Normal 27.0-32.0 [facility] Comment on above: Performed By: #### L 100.0100, L501.44100, L500.4050, L506.0400, L501.9520 #### [facility] [address] [place], [address] MCHC (RBC) [Mass/Vol] 33.9 g/dL Normal 32-36 [facility] Comment on above: Performed By: #### L 100.0100, L501.52707, L500.4050, L506.0400, L501.9520 #### [facility] [address] [place], [address] MCV (RBC) [Entitic vol] 84.2 fL Normal 80-94 [facility] Comment on above: Performed By: #### L 100.0100, L501.49240, L500.4050, L506.0400, L501.9520 #### [facility] [address] [place], [address] Monocytes/100 WBC (Bld) 5.9 % Normal 0-10 [facility] Comment on above: Performed By: #### L 100.0100, L501.82784, L500.4050, L506.0400, L501.9520 #### [facility] [address] [place], [address] Neutrophils/100 WBC (Bld) 63.1 % Normal 47-70 [facility] Comment on above: Performed By: #### L 100.0100, L501.55544, L500.4050, L506.0400, L501.9520 #### [facility] [address] [place], [address] Nucleated RBC (Bld) [#/Vol] 0 10*3/uL Normal 0-5 [facility] Comment on above: Performed By: #### L 100.0100, L501.99206, L500.4050, L506.0400, L501.9520 #### [facility] [address] [place], [address] Platelet mean volume (Bld) [Entitic vol] 9.0 fL Normal 6.2-12.0 [facility] Comment on above: Performed By: #### L 100.0100, L501.99548, L500.4050, L506.0400, L501.9520 #### [facility] [address] [place], [address] Platelets (Bld) [#/Vol] 310 10*3/uL Normal 150-450 [facility] Comment on above: Performed By: #### L 100.0100, L501.98389, L500.4050, L506.0400, L501.9520 #### [facility] [address] [place], [address] RBC (Bld) [#/Vol] 5.19 10*6/uL Normal 4.6-6.2 [facility] Comment on above: Performed By: #### L 100.0100, L501.90752, L500.4050, L506.0400, L501.9520 #### [facility] [address] [place], [address] RDW SD 39.5 fl Normal 35.1-43.9 [facility] Comment on above: Performed By: #### L 100.0100, L501.45042, L500.4050, L506.0400, L501.9520 #### [facility] [address] [place], [address] WBC (Bld) [#/Vol] 9.4 10*3/uL Normal 4.4-11.0 [facility] Comment on above: Performed By: #### L 100.0100, L501.13361, L500.4050, L506.0400, L501.9520 #### [facility] [address] [place], [address] Comprehensive Metabolic Prof ilon 12-12-2024 Albumin [Mass/Vol] 3.8 g/dL Normal 3.2-5.0 [facility] Comment on above: Performed By: #### L 100.0100, L501.23830, L500.4050, L506.0400, L501.9520 #### [facility] [address] [place], [address] Albumin/Globulin [Mass ratio] 1.2 {ratio} Normal 0.9-2.4 [facility] Comment on above: Performed By: #### L 100.0100, L501.86954, L500.4050, L506.0400, L501.9520 #### [facility] [address] [place], [address] ALK P 58 U/L Normal 45-117 [facility] Comment on above: Performed By: #### L 100.0100, L501.54535, L500.4050, L506.0400, L501.9520 #### [facility] [address] [place], [address] ALT [Catalytic activity/Vol] 33 U/L Normal 16-61 [facility] Comment on above: Performed By: #### L 100.0100, L501.87452, L500.4050, L506.0400, L501.9520 #### [facility] [address] [place], [address] AST [Catalytic activity/Vol] 15 U/L Normal 15-37 [facility] Comment on above: Performed By: #### L 100.0100, L501.38937, L500.4050, L506.0400, L501.9520 #### [facility] [address] [place], [address] Bilirubin [Mass/Vol] 1.10 mg/dL High 0.20-1.00 [facility] Comment on above: Result Comment: For patients on eltrombopag therapy, use of Dimension Hubbard TBIL is not recommended. Performed By: #### L 100.0100, L501.99992, L500.4050, L506.0400, L501.9520 #### [facility] [address] [place], [address] BUN/CRE 12.1 RATIO Normal 10-20 [facility] Comment on above: Performed By: #### L 100.0100, L501.23485, L500.4050, L506.0400, L501.9520 #### [facility] [address] [place], [address] CA,Total 9.0 mg/dL Normal 8.5-10.1 [facility] Comment on above: Performed By: #### L 100.0100, L501.02798, L500.4050, L506.0400, L501.9520 #### [facility] [address] [place], [address] Chloride [Moles/Vol] 105 mmol/L Normal 98-107 [facility] Comment on above: Performed By: #### L 100.0100, L501.35640, L500.4050, L506.0400, L501.9520 #### [facility] [address] [place], [address] CO2 [Moles/Vol] 25.0 mmol/L Normal 21.0-32.0 [facility] Comment on above: Performed By: #### L 100.0100, L501.69859, L500.4050, L506.0400, L501.9520 #### [facility] [address] [place], [address] Creatinine [Mass/Vol] 0.83 mg/dL Normal 0.70-1.30 [facility] Comment on above: Result Comment: The validity of the calculated GFR GFRAA in patients over 70 years has not been determined. Clinical correlation is essential. Performed By: #### L 100.0100, L501.27126, L500.4050, L506.0400, L501.9520 #### [facility] [address] [place], [address] EST GFR - AA 123 mL/min Normal >60 [facility] Comment on above: Result Comment: Afri can [place] GFR Calc Performed By: #### L 100.0100, L501.45478, L500.4050, L506.0400, L501.9520 #### [facility] [address] [place], [address] GAP 6 Normal 5-15 [facility] Comment on above: Performed By: #### L 100.0100, L501.37657, L500.4050, L506.0400, L501.9520 #### [facility] [address] [place], [address] GFR/1.73 sq M.predicted among non-blacks MDRD (S/P/Bld) [Vol rate/Area] 102 mL/min/{1.73_m2} Normal >60 [facility] Comment on above: Result Comment: Non- GFR Calc Performed By: #### L 100.0100, L501.40203, L500.4050, L506.0400, L501.9520 #### [facility] [address] [place], [address] Globulin (S) [Mass/Vol] 3.3 g/dL Normal 2.2-4.2 [facility] Comment on above: Performed By: #### L 100.0100, L501.81063, L500.4050, L506.0400, L501.9520 #### [facility] [address] [place], [address] Glucose [Mass/Vol] 95 mg/dL Normal 74-106 [facility] Comment on above: Performed By: #### L 100.0100, L501.27445, L500.4050, L506.0400, L501.9520 #### [facility] [address] [place], [address] Potassium [Moles/Vol] 4.2 mmol/L Normal 3.5-5.1 [facility] Comment on above: Performed By: #### L 100.0100, L501.13920, L500.4050, L506.0400, L501.9520 #### [facility] [address] [place], [address] Sodium [Moles/Vol] 136 mmol/L Normal 136-145 [facility] Comment on above: Performed By: #### L 100.0100, L501.58286, L500.4050, L506.0400, L501.9520 #### [facility] [address] [place], [address] T PROT 7.1 g/dL Normal 6.4-8.2 [facility] Comment on above: Performed By: #### L 100.0100, L501.47986, L500.4050, L506.0400, L501.9520 #### [facility] [address] [place], [address] Urea nitrogen [Mass/Vol] 10 mg/dL Normal 7-18 [facility] Comment on above: Performed By: #### L 100.0100, L501.14116, L500.4050, L506.0400, L501.9520 #### [facility] [address] [place], [address] Free T3on 12-12-2024 Free T3 [Mass/Vol] 2.6 pg/mL Normal 2.18-3.98 [facility] Comment on above: Performed By: #### L 100.0100, L501.14730, L500.4050, L506.0400, L501.9520 #### [facility] [address] [place], [address] T4 Free Directon 12-12-2024 T4 FREE DIRECT 1.04 ng/dL Normal 0.76-1.46 [facility] Comment on above: Performed By: #### L 100.0100, L501.92353, L500.4050, L506.0400, L501.9520 #### [facility] [address] [place], [address] Thyroid Stim Hormone (TSH)on 12-12-2024 TSH 2.890 uIU/mL Normal 0.358-3.740 [facility] Comment on above: Performed By: #### L 100.0100, L501.45262, L500.4050, L506.0400, L501.9520 #### [facility] [address] [place], [address] Office Visiton 12-08-2024 Follow-up visit [id number] Jorgito Fraga 1965 M Date Provider Department Center 12/08/2024 [id number] DIXON [facility] CÉSAR SHMGCV [address] Family History Problem Relation Age of Onset Heart disease Maternal Grandmother No Known Problems Brother Pancreatic cancer Father Hypertension Father Arthritis Paternal Grandmother Cancer Maternal Grandfather Arthritis Father Cancer Mother's Sister Alcohol abuse Mother's Sister Diabetes type II Mother No Known Problems Sister Multiple sclerosis Father's Brother No Known Problems Father's Sister Heart disease Mother's Brother Family Status - Relation Status Age at Maternal Grandmother Brother Father Alive Paternal Grandmother Maternal Grandfather Mother's Sister Alive Mother Alive Sister Father's Brother Father's Sister Mother's Brother Alive Level of Service:19853 VT OFFICE/OUTPATIENT ESTABLISHED MOD MDM 30 MIN Reason for Visit and Comments: Follow-up [306138] [facility] Progress Noteon 12-08-2024 Progress Note [facility] - [address] [address] Dept: [phone] Dept Visit type: Established : 1965 Reason for Visit: Follow-up Assessment and Plan 1. Obstructive sleep apnea Assessment & Plan: Continue CPAP nightly. 2. Paroxysmal atrial fibrillation (HCC) Assessment & Plan: Last monitor showed a 14% AF burden. He is not too bothered by this and does not wish for another ablation at this time. His QTc is stable on Tikosyn to continue current dosing. He is in need of lab work. He is not on OAC due to a chadsvasc score of zero. He will call us if his burden increases and we can discuss redo ablation. Orders: - ECG 12 lead - CLINIC PERFORMED 3. Typical atrial flutter (HCC) Assessment & Plan: S/p CTI ablation with no recurrence. Follow up in about 6 months (around 06/07/2025) for Dr. Gerber. Alvin Jorgito Fraga is a 59 y.o. male with a history of pAF/AFl with recurrence despite Tikosyn, s/p PVI + CTI ablation 11/2023, CARMEN on CPAP, who presents today for overdue 6 month follow up. Since his last visit, he underwent a stress test which showed no evidence of ischemia. He also wore a monitor for episodes of palpitations which showed a 14% AF burden (longest episode 5 hours), average HR when in AF 125 bpm. He states he is usually aware of his episodes of AF but they are not overly bothersome for him at this time and he is not interested in another ablation. He wears his CPAP nightly. Wants to lose weight and get under 300 lb. EKG today on my review shows sinus rhythm, 65 bpm, QTc: 416 ms. His chadsvasc score is zero. Review of Systems Constitutional: Negative for fatigue. HENT: Negative for nosebleeds. Respiratory: Negative for shortness of breath. Cardiovascular: Positive for palpitations. Negative for chest pain. Gastrointestinal: Negative for blood in stool. Genitourinary: Negative for hematuria. Neurological: Negative for dizziness, syncope and light-headedness. Hematological: Does not bruise/bleed easily. No Known Allergies Outpatient Medications Prior to Visit Medication Sig Dispense Refill alpha tocopherol (Vitamin E) 1000 units capsule Take 1,000 Units by mouth in the morning. cholecalciferol (D3-5) 5,000 Units tablet Take by mouth daily. coenzyme Q-10 100 MG capsule Take 1 tablet by mouth in the morning. cyanocobalamin (Vitamin B-12) 1000 MCG tablet Take 1,000 mcg by mouth in the morning. KRILL OIL PO Take by mouth daily. magnesium oxide (Mag-Ox) 400 MG tablet Take 400 mg by mouth See administration instructions. 2 pills once a day methIMAzole (Tapazole) 5 MG tablet Take 0.5 tablets (2.5 mg) by mouth every morning. 45 tablet 3 metoprolol tartrate (Lopressor) 25 MG tablet Take 1 tablet (25 mg) by mouth 2 times daily. (Patient taking differently: Take 25 mg by mouth 2 times daily as needed (afib episodes).) 60 tablet 5 naproxen (Naprosyn) 250 MG tablet Take 250 mg by mouth if needed for mild pain (1-3). omega-3 (Fish Oil) 1000 MG capsule Take 1,000 mg by mouth in the morning. TURMERIC PO Take by mouth daily. dofetilide (Tikosyn) 500 MCG capsule Take 1 capsule by mouth twice daily 180 capsule 0 acetaminophen (Tylenol) 500 MG tablet Take 500 mg by mouth as needed. Extra strength apixaban (Eliquis) 5 MG tablet Take 1 tablet (5 mg) by mouth 2 times daily. 60 tablet 0 No facility-administered medications prior to visit. Past Medical History: Diagnosis Date Atrial fibrillation (HCC) Heart murmur Hypothyroidism Social History Tobacco Use Smoking status: Former Smokeless tobacco: Current Types: Snuff Substance Use Topics Alcohol use: Not Currently Past Surgical History: Procedure Laterality Date ABLATION FOR ATRIAL FIBRILLATION (HISTORICAL) N/A 12/02/2023 CAPSULOTOMY, HAND 05/30/2008 12/19/18, 01/02/19, 04/05/19, 06/29/19 CARDIAC ELECTROPHYSIOLOGY PROCEDURE N/A 12/02/2023 Performed by Ezra Gerber MD at [facility] Cardiac Cath/EP Lab CARDIAC ELECTROPHYSIOLOGY PROCEDURE N/A 12/02/2023 Performed by Ezra Gerber MD at [facility] Cardiac Cath/EP Lab CARDIAC PROCEDURE 03/06/2019 TRANSESOPHAGEAL ECHOCARDIOGRAM 05/30/2008 Family History Problem Relation Name Age of Onset Heart disease Maternal Grandmother No Known Problems Brother Pancreatic cancer Father Hypertension Father Arthritis Paternal Grandmother Cancer Maternal Grandfather Arthritis Father Cancer Mother's Sister Alcohol abuse Mother's Sister Diabetes type II Mother No Known Problems Sister Multiple sclerosis Father's Brother No Known Problems Father's Sister Heart disease Mother's Brother Objective Vitals: 12/08/24 1445 BP: 120/72 BP Location: Left arm Patient Position: Sitting BP Cuff Size: Adult Pulse: 65 SpO2: 94% Weight: (!) 335 lb (152 kg) Height: 6' 2 (1.88 m) Physical Exam Vitals reviewed. Constitutional: General: He is not in acute distress. Appearance: Normal appearance. H (more content not included)... Normal [facility] Progress Note Continue CPAP nightly. Normal [facility] Progress Note S/p CTI ablation wit h no recurrence. Normal [facility] Progress Note Last monitor showed a 14% AF burden. He is not too bothered by this and does not wish for another ablation at this time. His QTc is stable on Tikosyn to continue current dosing. He is in need of lab work. He is not on OAC due to a chadsvasc score of zero. He will call us if his burden increases and we can discuss redo ablation. Normal [facility] 36on 11-06-2024 36 Patient scheduled with KM 12-08-24. Normal [facility] 36 LVM informing shalom moon of test results, marguerite please reach out and schedule follow up appointment. Normal [facility] 36 ----- Message from FRANCHESCA Portillo CNP sent at 11/06/2024 8:07 AM EST ----- Please let patient know stress test looked ok, not the best images but no clear evidence of ischemia. He is overdue for follow up, please schedule appt with me, on Tikosyn. Normal [facility] No Panel InformationOrdered By: Cipriano Kebede on 11-03-2024 Angina Index 0 [facility] Work Phone: Ao Root Index 1.26 cm/m2 [facility] Work Phone: Aortic Root 3.3 cm [facility] Work Phone: Aortic Sinus Valsalva 3.3 cm [facility] Work Phone: Aortic Sinus Valsalva Index 1.26 cm/m2 [facility] Work Phone: Ascending Aorta 3.7 cm [facility] Work Phone: Ascending Aorta Index 1.42 cm/m2 [facility] Work Phone: Baseline Diastolic BP 80 mmHg [facility] Work Phone: Baseline HR 67 bpm [facility] Work Phone: Baseline ST Depression [address] [facility] Work Phone: Baseline Systolic BP 147 mmHg [facility] Work Phone: Estrada Treadmill Score 6 [facility] Work Phone: EF BP 50 % Abnormal 55 - 100 % [facility] Work Phone: Exercise Duration Seconds 26 sec [facility] Work Phone: Exercise Duration Time [address] [facility] Work Phone: Interpretation and review of laboratory results Abnormal [facility] Work Phone: LV EDV A2C 238 mL [facility] Work Phone: LV EDV A4C 279 mL [facility] Work Phone: LV EDV BP 259 mL Abnormal 67 - 155 mL [facility] Work Phone: LV EDV Index A2C 91 mL/m2 [facility] Work Phone: LV EDV Index A4C 107 mL/m2 [facility] Work Phone: LV EDV Index BP 99 mL/m2 [facility] Work Phone: LV Ejection Fraction A2C 40 % [facility] Work Phone: LV Ejection Fraction A4C 53 % [facility] Work Phone: LV ESV A2C 142 mL [facility] Work Phone: LV ESV A4C 131 mL [facility] Work Phone: LV ESV BP 138 mL Abnormal 22 - 58 mL [facility] Work Phone: LV ESV Index A2C 54 mL/m2 [facility] Work Phone: LV ESV Index A4C 50 mL/m2 [facility] Work Phone: LV ESV Index BP 53 mL/m2 [facility] Work Phone: LVOT Area 4.2 cm2 [facility] Work Phone: LVOT Diameter 2.3 cm [facility] Work Phone: Recovery Stage 1 Duration 1 min:sec [facility] Work Phone: Recovery Stage 1 HR 103 bpm [facility] Work Phone: Recovery Stage 2 BP 146/99 mmHg [facility] Work Phone: Recovery Stage 2 Duration 2 min:sec [facility] Work Phone: Recovery Stage 2 HR 184 bpm [facility] Work Phone: Recovery Stage 3 BP 161/82 mmHg [facility] Work Phone: Recovery Stage 3 Duration 4 min:sec [facility] Work Phone: Recovery Stage 3 HR 87 bpm [facility] Work Phone: [phone] Recovery Stage 4 BP 152/75 mmHg [facility] Work Phone: Recovery Stage 4 Duration 6 min:sec [facility] Work Phone: [phone] Recovery Stage 4 HR 84 bpm [facility] Work Phone: [phone] Sinotubular Junction 2.9 cm [facility] Work Phone: Stress Diastolic BP 80 mmHg [facility] Work Phone: [phone] Stress Estimated Workload 7.3 METS [facility] Work Phone: [phone] Stress Peak HR 131 bpm [facility] Work Phone: Stress Percent HR Achieved 80 % [facility] Work Phone: Stress Rate Pressure Product 47963 bpm*mmHg [facility] Work Phone: Stress ST Depression 0 mm [facility] Work Phone: Stress Stage 1 BP 150/82 mmHg [facility] Work Phone: Stress Stage 1 Duration 3 min:sec [facility] Work Phone: Stress Stage 1 HR 106 bpm [facility] Work Phone: Stress Stage 2 BP 160/80 mmHg [facility] Work Phone: Stress Stage 2 Duration 6 min:sec [facility] Work Phone: Stress Stage 2 HR 126 bpm [facility] Work Phone: Stress Stage 3 Duration 6:26 min:sec [facility] Work Phone: Stress Stage 3 HR 131 bpm [facility] Work Phone: Stress Systolic BP 160 mmHg [facility] Work Phone: Stress Target HR 163 bpm [facility] Work Phone: [facility] Work Phone: No Panel Informationon 11-03 Study Impression: Probably normal stress echocardiogram within the limits of this study. No clear echocardiographic evidence of ischemia. poor quality images post stress. Post-stress Echo: The post-stress echo showed no new wall motion abnormalities within the limits of this study. Left Ventricle: Left ventricle is dilated. Normal wall thickness. Low normal left ventricular systolic function. EF by 2D Simpsons Biplane is 50%. Normal wall motion. Right Ventricle: Right ventricle size is normal. Normal systolic function. Stress ECG: Arrhythmias during recovery: occasional PACs, occasional PVCs. Other arrhythmias noted during recovery: Runs of atrial tachycardia. Conclusion: The stress EKG is normal based on ischemic changes but the patient developed frequent atrial arrhythmias and runs of atrial tachycardia in recovery. Stress Test: A Demetri protocol stress test was performed. The patient reached stage 3 of the protocol after exercising for 6 min and 26 sec. The patient experienced no angina during the test. Blood pressure demonstrated a normal response and heart rate demonstrated a normal response to stress. The patient's heart rate recovery was normal. The patient reported no chest pain during the stress test. Left Ventricle Left ventricle is dilated. Normal wall thickness. Low normal left ventricular systolic function. EF by 2D Simpsons Biplane is 50%. Normal wall motion. Right Ventricle Right ventricle size is normal. Normal systolic function. Left Atrium Not assessed. Right Atrium Not assessed. Mitral Valve Valve structure is normal. No regurgitation. No stenosis noted. Tricuspid Valve Not well visualized. Valve structure is normal. Trace regurgitation. Aortic Valve Not well visualized. Trileaflet. No cusp thickening. No cusp calcification. No regurgitation. No stenosis. Pulmonic Valve The pulmonic valve was not assessed. Ascending Aorta Normal sized sinuses of Valsalva and ascending aorta. Pericardium No pericardial effusion. Study Details Post stress images acquired greater than 90 seconds following stress. Image quality: adequate. Blood pressure: 147/80 mmHg. Technical qualifiers: Technically difficult study with poor endocardial visualization and technically difficult study due to patient's body habitus. Ultrasound enhancement agent was given to enhance imaging. Resting ECG The ECG shows normal sinus rhythm. Resting ECG shows no ST-segment deviation. Stress Findings A Demetri protocol stress test was performed. The patient reached stage 3 of the protocol after exercising for 6 min and 26 sec. The patient experienced no angina during the test. Jackie rating of perceived exertion was 17. Blood pressure demonstrated a normal response and heart rate demonstrated a normal response to stress. The patient's heart rate recovery was normal. The patient reported no symptoms prior to the stress test. The patient reported no chest pain during the stress test. The test was stopped because the patient experienced fatigue. Stress ECG Arrhythmias during stress: occasional PACs, occasional PVCs. No ST depression was noted. Arrhythmias during recovery: occasional PACs, occasional PVCs. Other arrhythmias noted during recovery: Runs of atrial tachycardia. Conclusion: The stress EKG is normal based on ischemic changes but the patient developed frequent atrial arrhythmias and runs of atrial tachycardia in recovery. Echo Post Stress Left ventricle cavity size is unchanged post-stress. Left ventricle systolic function is normal post-stress. The post-stress echo showed no new wall motion abnormalities within the limits of this study. Study Impression Probably normal stress echocardiogram within the limits of this study. No clear echocardiographic evidence of ischemia. poor quality images post stress. Wall Scoring Resting Score Index: 1.00 The left ventricular wall motion is normal. Wall Scoring Stress Score Index: 1.00 The left ventricular wall motion is normal. CV CPACS STRESS Vital signsOrdered By: Danelle Kebede on 11-03-2024 Oxygen saturation in Blood 98 % [facility] Phone: Oxygen saturation in Blood 97 % [facility] 36on 09-14-2024 36 Please see new order s have been placed. Normal [facility] 36 New orders placed. Normal [facility] 36 [address] please place new orders for stress test and HM? The orders SM placed were put in wrong department. ( [facility] Central scheduling). Thank you [place] [phone] 09-12-2024 36 Will need new orders. Normal [place] [phone] Reason for call: Carly the patients called into schedule the patient for a stress echocardiogram and Holter monitor, but the orders say cancelled and wont let me schedule. Please place new orders. Thank you Contact [facility] 36on 09-11-2024 36 Pt's called back, she was given the number for scheduling, she will try to call today or have her (the pt) call me and I will assist in scheduling. [place] [phone] Spoke to pt's who was driving at the time, instructed her to call back when she is able to discuss rescheduling testing and fu Normal [facility] 36 Patient never had monitor or stress test that was ordered in February. Also has no follow up scheduled. Needs arranged. Normal [facility] 36 EASTON-03/15 MSP NOV-none CMP-11/13 EKG-03/15 Normal [facility] Shoulder min 2 Viewson 08-04 Shoulder min 2 Views [facility] [address] [place], [place] [id number] Shoulder min 2 Views MR#: [id number] Acct: [id number] Name: JORGITO FRAGA Rep #: [id number] : 1965 M 58 From: Sal Kaplan MD PCP: Dr. Curry Banda MD Status: REG CLI Study: Shoulder min 2 Views Date of Exam: 08/04/24 Exam# [id number] Ordering Dr: Curry Banda MD [id number] STUDY: X-RAY - RIGHT SHOULDER REASON FOR EXAM: Male, 58 years old. Right shoulder pain. TECHNIQUE: 4 views of the right shoulder. COMPARISON: None. FINDINGS: There is moderate glenohumeral arthrosis with joint space narrowing and osteophyte formation along the inferomedial margin of the humeral head. There is hypertrophic acromioclavicular arthrosis. Normal acromion. Intact humeral head and visualized proximal humerus. The soft tissue structures are unremarkable. There is no demonstrated fracture. Normal visualized pulmonary apex. RAD/Shoulder min 2 Views IMPRESSION: Moderate glenohumeral arthrosis. Hypertrophic acromioclavicular arthrosis. No demonstrated fracture. Electronically Signed: Sal Kaplan MD at 16:09 EDT , CC: Dr. Curry Banda MD Staff Reporter: Signed Normal [facility] ABD Limited w/ Elastographyo n 07-08-2024 ABD Limited w/ Elastography [facility] [address] [place] [address] ABD Limited w/ Elastography MR#: [id number] Acct: [id number] Name: JORGITO FRAGA Rep #: [id number] : 1965 M 58 From: Tyler tabares MD PCP: Dr. Curry Banda MD Status: REG CLI Study: ABD Limited w/ Elastography Date of Exam: 06/22 06/14 Exam# [id number] Ordering Dr: Curry Banda MD [id number] STUDY: ABDOMINAL ULTRASOUND - RIGHT UPPER QUADRANT; ELASTOGRAPHY REASON FOR VISIT: Male, 58 years old. Elevated liver enzymes. TECHNIQUE: Ultrasound evaluation of the right upper quadrant was performed with real-time and static rey-scale imaging. Point quantification shear wave elastography was performed ([employer]). TECHNICAL QUALITY: Limited. Examination limited due to obesity. COMPARISON: None. FINDINGS: Liver: The liver is enlarged and measures 22 cm. There is increased echogenicity consistent with fatty infiltration. The bile ducts are within normal limits. There is hepatic color flow. The direction of portal flow is hepatopetal. There is no demonstrated mass lesion. Median liver stiffness measured 7.9 kPa. Gallbladder: Normal distended gallbladder. The gallbladder wall measures 1.8 mm. There is a negative sonographic Castellanos''s sign. There is no pericholecystic fluid. There is a solitary echogenic gallstone within the gallbladder. Common Bile Duct (C.B.D.): The common bile duct measures 6.9 mm. Pancreas: There is normal echogenicity of the visualized pancreas. There is no demonstrated pancreatic mass or cyst. Right Kidney: Normal size of the right kidney. The right kidney measures 12.3 cm x 5.6 x 6.9 cm. Normal renal cortex. The right cortex measures 1. cm. There is no demonstrated renal mass or cyst. There is no right hydronephrosis. US/ABD Limited w/ Elastography IMPRESSION: 1. Liver stiffness measures 7.9 kPa compatible with F2-F3 (Mild to moderate liver fibrosis) Metavir score. Electronically Signed: Tyler Stevens MD at 14:48 EDT , CC: Dr. Curry Banda MD Staff Reporter: Signed Normal [facility] 36on 06-27-2024 36 Sent rx request to ac [facility] Thyroglobulin Antibodyon TG AB < 1.0 Normal 0.0-0.9 [facility] Comment on above: Result Comment: Thyr oglobulin Antibody measured by Jeimy Kalyn Methodology It should be noted that the presence of thyroglobulin antibodies may not be pathogenic nor diagnostic, especially at very low levels. The assay loft worker apprentice has found that four percent of individuals without evidence of thyroid disease or autoimmunity will have positive TgAb levels up to 4 IU/mL. Performed By: #### L 100.0100, L501.94889, L500.4050, L506.0400, L501.9520 #### [facility] [address] [facility]. [place], [place], [id number] Thyroid Peroxidase ABon 08-0 THYR PEROX AB 50 IU/mL High 0-34 [facility] Comment on above: Result Comment: Perf ormed at: [facility] [address] [id number] Instructor Physical: Akhil Franks PhD, Phone: [phone] Performed By: #### L 100.0100, L501.07120, L500.4050, L506.0400, L501.9520 #### [facility] [address] [place], [address] CBC W/Diff, Automatedon 08-0 2-2023 Absolute Lymph 2.96 X10 3/uL Normal 0.83-4.51 [facility] Comment on above: Performed By: #### L 501.50300, L500.4050, L100.0100, L3300.7027, L506.0400, L501.9520, L501.5200, L3300.6900, L500.4100, L501.9910 #### [facility] [address] [place], [address] Absolute Neut 7.5 X10 3/uL Normal 2.0-7.7 [facility] Comment on above: Performed By: #### L 501.21985, L500.4050, L100.0100, L3300.7027, L506.0400, L501.9520, L501.5200, L3300.6900, L500.4100, L501.9910 #### [facility] [address] [place], [address] Basophils/100 WBC (Bld) 0.7 % Normal 0-1 [facility] Comment on above: Performed By: #### L 501.22008, L500.4050, L100.0100, L3300.7027, L506.0400, L501.9520, L501.5200, L3300.6900, L500.4100, L501.9910 #### [facility] [address] [place], [address] Eosinophils/100 WBC (Bld) 1.1 % Normal 0-5 [facility] Comment on above: Performed By: #### L 501.70761, L500.4050, L100.0100, L3300.7027, L506.0400, L501.9520, L501.5200, L3300.6900, L500.4100, L501.9910 #### [facility] [address] [facility] [place], [address] Erythrocyte distribution width (RBC) [Ratio] 12.9 % Normal 11.6-14.6 [facility] Comment on above: Performed By: #### L 501.65089, L500.4050, L100.0100, L3300.7027, L506.0400, L501.9520, L501.5200, L3300.6900, L500.4100, L501.9910 #### [facility] [address] [facility] [place], [address] Hematocrit (Bld) [Volume fraction] 43.6 % Normal 40-54 [facility] Comment on above: Performed By: #### L 501.92304, L500.4050, L100.0100, L3300.7027, L506.0400, L501.9520, L501.5200, L3300.6900, L500.4100, L501.9910 #### [facility] [address] [facility] [place], [place], [phone] (387) Hemoglobin (Bld) [Mass/Vol] 14.6 g/dL Normal 13.0-16.5 [facility] Comment on above: Performed By: #### L 501.42371, L500.4050, L100.0100, L3300.7027, L506.0400, L501.9520, L501.5200, L3300.6900, L500.4100, L501.9910 #### [facility] [address] [facility] [place], [address] IG% 0.200 Normal 0.0-0.9 [facility] Comment on above: Result Comment: IG% - Immature Granulocytes (promyelocytes, myelocytes and metamyelocytes) > 1% indicates that a LEFT SHIFT is Present. Performed By: #### L 501.05234, L500.4050, L100.0100, L3300.7027, L506.0400, L501.9520, L501.5200, L3300.6900, L500.4100, L501.9910 #### [facility] [address] [facility] [place], [address] Lymphocytes/100 WBC (Bld) 26.0 % Normal 19-41 [facility] Comment on above: Performed By: #### L 501.78680, L500.4050, L100.0100, L3300.7027, L506.0400, L501.9520, L501.5200, L3300.6900, L500.4100, L501.9910 #### [facility] [address] [facility] [place], [address] MCH (RBC) [Entitic mass] 28.6 pg Normal 27.0-32.0 [facility] Comment on above: Performed By: #### L 501.86780, L500.4050, L100.0100, L3300.7027, L506.0400, L501.9520, L501.5200, L3300.6900, L500.4100, L501.9910 #### [facility] [address] [facility] [place], [address] MCHC (RBC) [Mass/Vol] 33.5 g/dL Normal 32-36 [facility] Comment on above: Performed By: #### L 501.91127, L500.4050, L100.0100, L3300.7027, L506.0400, L501.9520, L501.5200, L3300.6900, L500.4100, L501.9910 #### [facility] [address] [facility] [place], [address] MCV (RBC) [Entitic vol] 85.5 fL Normal 80-94 [facility] Comment on above: Performed By: #### L 501.30023, L500.4050, L100.0100, L3300.7027, L506.0400, L501.9520, L501.5200, L3300.6900, L500.4100, L501.9910 #### [facility] [address] [place], [address] Monocytes/100 WBC (Bld) 5.7 % Normal 0-10 [facility] Comment on above: Performed By: #### L 501.48624, L500.4050, L100.0100, L3300.7027, L506.0400, L501.9520, L501.5200, L3300.6900, L500.4100, L501.9910 #### [facility] [address] [place], [address] Neutrophils/100 WBC (Bld) 66.3 % Normal 47-70 [facility] Comment on above: Performed By: #### L 501.49792, L500.4050, L100.0100, L3300.7027, L506.0400, L501.9520, L501.5200, L3300.6900, L500.4100, L501.9910 #### [facility] [address] [place], [address] Nucleated RBC (Bld) [#/Vol] 0 10*3/uL Normal 0-5 [facility] Comment on above: Performed By: #### L 501.96213, L500.4050, L100.0100, L3300.7027, L506.0400, L501.9520, L501.5200, L3300.6900, L500.4100, L501.9910 #### [facility] [address] [facility] [place], [address] Platelet mean volume (Bld) [Entitic vol] 9.3 fL Normal 6.2-12.0 [facility] Comment on above: Performed By: #### L 501.47546, L500.4050, L100.0100, L3300.7027, L506.0400, L501.9520, L501.5200, L3300.6900, L500.4100, L501.9910 #### [facility] [address] [place], [address] Platelets (Bld) [#/Vol] 354 10*3/uL Normal 150-450 [facility] Comment on above: Performed By: #### L 501.60205, L500.4050, L100.0100, L3300.7027, L506.0400, L501.9520, L501.5200, L3300.6900, L500.4100, L501.9910 #### [facility] [address] [place], [address] RBC (Bld) [#/Vol] 5.10 10*6/uL Normal 4.6-6.2 [facility] Comment on above: Performed By: #### L 501.98490, L500.4050, L100.0100, L3300.7027, L506.0400, L501.9520, L501.5200, L3300.6900, L500.4100, L501.9910 #### [facility] [address] [place], [address] RDW SD 40.1 fl Normal 35.1-43.9 [facility] Comment on above: Performed By: #### L 501.35205, L500.4050, L100.0100, L3300.7027, L506.0400, L501.9520, L501.5200, L3300.6900, L500.4100, L501.9910 #### [facility] [address] [place], [address] WBC (Bld) [#/Vol] 11.4 10*3/uL High 4.4-11.0 [facility] Comment on above: Performed By: #### L 501.74496, L500.4050, L100.0100, L3300.7027, L506.0400, L501.9520, L501.5200, L3300.6900, L500.4100, L501.9910 #### [facility] [address] [place], [address] Comprehensive Metabolic Prof ilon 06-23-2024 Albumin [Mass/Vol] 3.7 g/dL Normal 3.2-5.0 [facility] Comment on above: Performed By: #### L 501.63490, L500.4050, L100.0100, L3300.7027, L506.0400, L501.9520, L501.5200, L3300.6900, L500.4100, L501.9910 #### [facility] [address] [place], [address] Albumin/Globulin [Mass ratio] 1.0 {ratio} Normal 0.9-2.4 [facility] Comment on above: Performed By: #### L 501.04324, L500.4050, L100.0100, L3300.7027, L506.0400, L501.9520, L501.5200, L3300.6900, L500.4100, L501.9910 #### [facility] [address] [place], [address] ALK P 69 U/L Normal 45-117 [facility] Comment on above: Performed By: #### L 501.21070, L500.4050, L100.0100, L3300.7027, L506.0400, L501.9520, L501.5200, L3300.6900, L500.4100, L501.9910 #### [facility] [address] [place], [address] ALT [Catalytic activity/Vol] 87 U/L High 16-61 [facility] Comment on above: Performed By: #### L 501.30845, L500.4050, L100.0100, L3300.7027, L506.0400, L501.9520, L501.5200, L3300.6900, L500.4100, L501.9910 #### [facility] [address] [place], [address] AST [Catalytic activity/Vol] 39 U/L High 15-37 [facility] Comment on above: Performed By: #### L 501.36177, L500.4050, L100.0100, L3300.7027, L506.0400, L501.9520, L501.5200, L3300.6900, L500.4100, L501.9910 #### [facility] [address] [place], [place], [phone] (432) Bilirubin [Mass/Vol] 1.00 mg/dL Normal 0.20-1.00 [facility] Comment on above: Result Comment: For patients on eltrombopag therapy, use of Dimension Hubbard TBIL is not recommended. Performed By: #### L 501.33833, L500.4050, L100.0100, L3300.7027, L506.0400, L501.9520, L501.5200, L3300.6900, L500.4100, L501.9910 #### [facility] [address] [place], [place], [phone] (706) BUN/CRE 18.6 RATIO Normal 10-20 [facility] Comment on above: Performed By: #### L 501.13369, L500.4050, L100.0100, L3300.7027, L506.0400, L501.9520, L501.5200, L3300.6900, L500.4100, L501.9910 #### [facility] [address] [place], [address] CA,Total 9.6 mg/dL Normal 8.5-10.1 [facility] Comment on above: Performed By: #### L 501.32633, L500.4050, L100.0100, L3300.7027, L506.0400, L501.9520, L501.5200, L3300.6900, L500.4100, L501.9910 #### [facility] [address] [place], [address] Chloride [Moles/Vol] 110 mmol/L High 98-107 [facility] Comment on above: Performed By: #### L 501.91697, L500.4050, L100.0100, L3300.7027, L506.0400, L501.9520, L501.5200, L3300.6900, L500.4100, L501.9910 #### [facility] [address] [place], [address] CO2 [Moles/Vol] 24.0 mmol/L Normal 21.0-32.0 [facility] Comment on above: Performed By: #### L 501.10792, L500.4050, L100.0100, L3300.7027, L506.0400, L501.9520, L501.5200, L3300.6900, L500.4100, L501.9910 #### [facility] [address] [place], [address] Creatinine [Mass/Vol] 0.86 mg/dL Normal 0.70-1.30 [facility] Comment on above: Result Comment: The validity of the calculated GFR GFRAA in patients over 70 years has not been determined. Clinical correlation is essential. Performed By: #### L 501.63993, L500.4050, L100.0100, L3300.7027, L506.0400, L501.9520, L501.5200, L3300.6900, L500.4100, L501.9910 #### [facility] [address] [place], [address] EST GFR - AA 118 mL/min Normal >60 [facility] Comment on above: Result Comment: Afri can S[place] GFR Calc Performed By: #### L 501.47487, L500.4050, L100.0100, L3300.7027, L506.0400, L501.9520, L501.5200, L3300.6900, L500.4100, L501.9910 #### [facility] [address] [place], [place], [phone] (831) GAP 6 Normal 5-15 [facility] Comment on above: Performed By: #### L 501.58246, L500.4050, L100.0100, L3300.7027, L506.0400, L501.9520, L501.5200, L3300.6900, L500.4100, L501.9910 #### [facility] [address] [place], [address] GFR/1.73 sq M.predicted among non-blacks MDRD (S/P/Bld) [Vol rate/Area] 97 mL/min/{1.73_m2} Normal >60 [facility] Comment on above: Result Comment: Non- GFR Calc Performed By: #### L 501.90991, L500.4050, L100.0100, L3300.7027, L506.0400, L501.9520, L501.5200, L3300.6900, L500.4100, L501.9910 #### [facility] [address] [place], [place], [phone] (068) Globulin (S) [Mass/Vol] 3.6 g/dL Normal 2.2-4.2 [facility] Comment on above: Performed By: #### L 501.34909, L500.4050, L100.0100, L3300.7027, L506.0400, L501.9520, L501.5200, L3300.6900, L500.4100, L501.9910 #### [facility] [address] [place], [address] Glucose [Mass/Vol] 95 mg/dL Normal 74-106 [facility] Comment on above: Performed By: #### L 501.64838, L500.4050, L100.0100, L3300.7027, L506.0400, L501.9520, L501.5200, L3300.6900, L500.4100, L501.9910 #### [facility] [address] [place], [address] Potassium [Moles/Vol] 4.1 mmol/L Normal 3.5-5.1 [facility] Comment on above: Performed By: #### L 501.04499, L500.4050, L100.0100, L3300.7027, L506.0400, L501.9520, L501.5200, L3300.6900, L500.4100, L501.9910 #### [facility] [address] [place], [address] Sodium [Moles/Vol] 140 mmol/L Normal 136-145 [facility] Comment on above: Performed By: #### L 501.92517, L500.4050, L100.0100, L3300.7027, L506.0400, L501.9520, L501.5200, L3300.6900, L500.4100, L501.9910 #### [facility] [address] [place], [address] T PROT 7.3 g/dL Normal 6.4-8.2 [facility] Comment on above: Performed By: #### L 501.70694, L500.4050, L100.0100, L3300.7027, L506.0400, L501.9520, L501.5200, L3300.6900, L500.4100, L501.9910 #### [facility] [address] [place], [address] Urea nitrogen [Mass/Vol] 16 mg/dL Normal 7-18 [facility] Comment on above: Performed By: #### L 501.03768, L500.4050, L100.0100, L3300.7027, L506.0400, L501.9520, L501.5200, L3300.6900, L500.4100, L501.9910 #### [facility] [address], [address] Free T3on 06-23-2024 Free T3 [Mass/Vol] 2.8 pg/mL Normal 2.18-3.98 [facility] Comment on above: Performed By: #### L 501.34554, L500.4050, L100.0100, L3300.7027, L506.0400, L501.9520, L501.5200, L3300.6900, L500.4100, L501.9910 #### [facility] [address] [place], [address] Lipid Profileon 06-23-2024 Cholesterol [Mass/Vol] 190 mg/dL Normal 200 [facility] Comment on above: Result Comment: <200 mg/dL Desirable 200-240 mg/dL Borderline >240 mg/dL High Risk Performed By: #### L 501.43550, L500.4050, L100.0100, L3300.7027, L506.0400, L501.9520, L501.5200, L3300.6900, L500.4100, L501.9910 #### [facility] [address] [place], [place], [id number] Cholesterol in HDL [Mass/Vol] 34 mg/dL Low [facility] Comment on above: Result Comment: The drugs N-Acetylcysteine and Metamizole may falsely depress this assay. Reference Range HDL <40 mg/dL Low HDL Cholesterol HDL >or= 60 mg/dL High HDL Cholesterol Performed By: #### L 501.32451, L500.4050, L100.0100, L3300.7027, L506.0400, L501.9520, L501.5200, L3300.6900, L500.4100, L501.9910 #### [facility] [address] [place], [address] Cholesterol in LDL [Mass/Vol] 119 mg/dL Normal 0-130 [facility] Comment on above: Performed By: #### L 501.93980, L500.4050, L100.0100, L3300.7027, L506.0400, L501.9520, L501.5200, L3300.6900, L500.4100, L501.9910 #### [facility] [address] [facility] [place], [place], [id number] (138) Cholesterol in VLDL [Mass/Vol] 37 mg/dL Normal 5-40 [facility] Comment on above: Performed By: #### L 501.10938, L500.4050, L100.0100, L3300.7027, L506.0400, L501.9520, L501.5200, L3300.6900, L500.4100, L501.9910 #### [facility] [address] [place], [place], [id number] (761) Triglyceride [Mass/Vol] 187 mg/dL Normal [facility] Comment on above: Result Comment: The drugs N-Acetylcysteine and Metamizole may falsely depress this assay. Serum Triglycerides Reference Interval Normal <150 mg/dL Borderline high 150 - 199 mg/dL High 200 - 499 mg/dL Very High > or = 500 mg/dL Performed By: #### L 501.77413, L500.4050, L100.0100, L3300.7027, L506.0400, L501.9520, L501.5200, L3300.6900, L500.4100, L501.9910 #### [facility] [address] [place], [address] Magnesiumon 06-23-2024 Magnesium [Mass/Vol] 2.1 mg/dL Normal 1.6-2.6 [facility] Comment on above: Performed By: #### L 501.94282, L500.4050, L100.0100, L3300.7027, L506.0400, L501.9520, L501.5200, L3300.6900, L500.4100, L501.9910 #### [facility] [address] [place], [address] PSA,Total - Annual Screenon 06-23-2024 PSA,TOT SCREEN 2.18 ng/mL Normal 0.00-4.00 [facility] Comment on above: Result Comment: This test was performed using the TPSA assay method for the [employer] chemistry system. Values obtained with different assay methods cannot be used interchangably. When changing PSA assays in the course of monitoring a patient, additional sequential testing should be carried out to confirm baseline values. Performed By: #### L 100.0100, L501.28233, L500.4050, L506.0400, L501.9520 #### [facility] [address] [place], [address] T4 Free Directon 06-23-2024 T4 FREE DIRECT 0.92 ng/dL Normal 0.76-1.46 [facility] Comment on above: Performed By: #### L 100.0100, L501.68100, L500.4050, L506.0400, L501.9520 #### [facility] [address] [place], [address] Thyroid Stim Hormone (TSH)on 06-23-2024 TSH 1.66 uIU/mL Normal 0.358-3.74 [facility] Comment on above: Performed By: #### L 100.0100, L501.69762, L500.4050, L506.0400, L501.9520 #### [facility] [address] [place], [address] 36on 06-09-2024 36 Called the patients in regards to her , letting her know that I faxed the lab order to [facility] at fax #: [phone]. [facility] 36 Faxed lab order to [facility] , fax #: [phone]. [facility] 36on 06-08-2024 36 Name of caller: lilly oquendo Contact phone number: [phone] Relationship to Patient: patient Provider: [facility] Practice: [facility] Chief Complaint/Reason for Call: patients is calling in needing the office to fax over an order to [facility] for the patient to get their blood work completed. phone number is [phone] they would like to be notified once that order has been placed. please advise and thank you Best time of day caller can be reached: any Patient advised that office/PCP has 24-48 business hours to return their call: Yes [facility] Electrophysiology studyon Successful ablation for atrial fibrillation with RF isolation of all four pulmonary veins and for atypical flutter with CTI ablation. The patient tolerated the procedure well with no immediate complications. Plan: 1. Transfer to PACU for observation 2. Bedrest for 2.5 hours post-sheath pull, then ambulate as tolerated 3. Resume anticoagulation. 4. Cont current home meds as prescribed 5. Pantoprazole for 4 weeks. 6. Discharge home this afternoon pending above Procedure Details Procedure: Atrial Fibrillation Ablation with RF Assistants: None Catheters or Drains: Not Applicable Specimens: Not Applicable Estimated Blood Loss: < 10mL Complications: None Procedure Description: The indications, risks, benefits, alternatives, and details of the procedure were explained to the patient who expressed understanding of the risks including but are not limited to: pain, bleeding, and infection for which the risk is less than 1%. More serious risks, including cardiac perforation and tamponade, vascular trauma, pulmonary vein stenosis, atrio-esophageal fistula, diaphragmatic paralysis, life-threatening arrhythmia, need for permanent pacemaker, stroke, heart attack, and/or , for which the overall risk ranges 0.1-1%. After all questions were answered, the patient provided informed and written consent. The pt was brought to the EP lab in the fasting state. The presenting rhythm was atrial fibrillation. Access was obtained in the right femoral vein using the modified Seldinger technique with the aid of ultrasound. Three sheaths (8Fr, 8.5Fr, 8.5Fr) were placed in the right femoral vein. A North CS catheter was placed in the CS. An ICE transducer was advanced into the right atrium via the sheath in the right femoral vein. Echocardiography was used to guide the transseptal puncture, guide positioning of the ablation tip electrode at the target sites and monitor for complications. No pericardial effusion noted pre or post ablation. The sheath in the right femoral vein was exchanged over a wire for an 8.5Fr SureFlex sheath. Heparin was given prior to transseptal puncture. A transseptal access was performed using a SMART needle assembly and sheath was advanced into the left atrium. The heparin infusion rate was adjusted to maintain an ACT between 350-400 sec throughout the procedure. A left atrial voltage map was constructed using Carto3 and a PentaRay mapping catheter which showed no significant areas of low voltage (scar). PV potentials were present at the antrum of all four PVs. A Biosense North ST SF catheter was used for ablation. Isolation of all 4 PVs was achieved with bilateral RF wide-area circumferential ablation (WACA) lesions. During ablation, the patient spontaneously converted back to sinus rhythm. Given the history of atrial flutter, CTI ablation was also completed. Linear ablation was completed along the CTI until block was achieved. Medial to lateral conduction time was 155ms. Protamine was given to reverse the heparin. All catheters and sheaths were removed and Vascade devices were used for hemostasis. CV CPACS HEMO [facility] No Panel Informationon 12-02 Interpretation and review of laboratory results Abnormal [employer] [facility] POCT ACT 302 [facility] Performed by: [facility] [employer] [facility], [address] [place] [address] CLIA ID: [id number] [facility] Interpretation and review of laboratory results Abnormal [facility] POCT ACT 296 High [facility] Performed by: [facility] [employer] [facility], [address] [place] [id number] CLIA ID: [id number] [facility] Interpretation and review of laboratory results Abnormal [facility] POCT ACT 228 High [facility]formed by: [facility], [address] [facility] [address] CLIA ID: [id number] [facility] Interpretation and review of laboratory results Abnormal [facility] POCT ACT 182 High [facility] Performed by: [facility], [address] [facility] [address] CLIA ID: [id number] [facility] Absolute lymphocyte countOrd ered By: Curry Banda on 11-17-2023 Lymphocytes Auto (Unsp spec) [#/Vol] 2.73 10*3/uL 0.83-4.51 [facility] Basophil percentageOrdered B y: Curry Banda on 11-17-2023 Basophils/100 WBC (Bld) 0.6 % 0-1 [facility] Bilirubin [Mass/Vol] 1.10 mg/dL 0.20-1.00 [facility] Comment on above: For patients on eltr ombopag therapy, use of Dimension Hubbard TBIL is not recommended. Chloride [Moles/Vol] 106 mmol/L 98-107 [facility] Cholesterol [Mass/Vol] 145 mg/dL <200 [facility] Comment on above: <200 mg/dL Desirable 200-240 mg/dL Borderline >240 mg/dL High Risk Eosinophils/100 WBC (Bld) 1.2 % 0-5 [facility] Glucose [Mass/Vol] 208 mg/dL 74-106 [facility] Comment on above: Glucose result great er than or equal to 200 mg/dLsuggests DIABETES MELLITUS per A.D.A. criteria. Neutrophils (Bld) [#/Vol] 3.8 10*3/uL 2.0-7.7 [facility] Neutrophils/100 WBC (Bld) 54.9 % 47-70 [facility] Potassium [Moles/Vol] 4.3 mmol/L 3.5-5.1 [facility] Protein [Mass/Vol] 6.9 g/dL 6.4-8.2 [facility] Sodium [Moles/Vol] 139 mmol/L 136-145 [facility] Triglyceride [Mass/Vol] 115 mg/dL <199 [facility] Comment on above: The drugs N-Acetylcy steine and Metamizole may falsely depress this assay.Serum Triglycerides Reference Interval Normal <150 mg/dL Borderline high 150 - 199 mg/dL High 200 - 499 mg/dL Very High > or = 500 mg/dL WBC (Bld) [#/Vol] 6.9 10*3/uL 4.4-11.0 [facility] Blood erythrocytes count (nu mber/volume)Ordered By: Curry Banda on 11-17-2023 RBC (Bld) [#/Vol] 5.45 10*6/uL 4.6-6.2 [facility] Blood hemoglobin measurement (mass/volume)Ordered By: Curry Banda on 11-17-2023 Hemoglobin (Bld) [Mass/Vol] 16.0 g/dL 13.0-16.5 [facility] Blood lymphocytes/100 leukoc ytesOrdered By: Curry Banda on 11-17-2023 Lymphocytes/100 WBC (Bld) 39.7 % 19-41 [facility] Blood monocytes/100 leukocyt esOrdered By: Curry Banda on 11-17-2023 Monocytes/100 WBC (Bld) 3.2 % 0-10 [facility] Blood platelet mean volumeOr dered By: Curry Banda on 11-17-2023 Platelet mean volume (Bld) [Entitic vol] 9.2 fL 6.2-12.0 [facility] Determination of erythrocyte mean corpuscular volume (MCV)Ordered By: Curry Banda on 11-17-2023 MCV (RBC) [Entitic vol] 85.5 fL 80-94 [facility] Hematocrit Auto (Bld) [Volum e fraction]Ordered By: Curry Banda on 11-17-2023 Hematocrit (Bld) [Volume fraction] 46.6 % 40-54 [facility] INR in Blood by Coagulation assayOrdered By: Curry Banda on 11-17-2023 INR Coag (Bld) [Relative time] 1.1 {INR} [facility] - Chemistry and C hemistry - challengeOrdered By: Curry Banda on 11-17-2023 ALP [Catalytic activity/Vol] 59 U/L 45-117 [facility] ALT [Catalytic activity/Vol] 60 U/L 16-61 [facility] CO2 [Moles/Vol] 24.0 mmol/L 21.0-32.0 [facility] Globulin (S) [Mass/Vol] 3.5 g/dL 2.2-4.2 [facility] Urea nitrogen/Creatinine [Mass ratio] 12.8 mg/mg 10-20 [facility] - CoagulationOrde red By: Curry Banda on 11-17-2023 aPTT Coag (Bld) [Time] 32.9 s 24.1-36.2 [facility] PT Coag (PPP) [Time] 14.2 s 11.7-14.9 [facility] - Hematology and Cell countsOrdered By: Curry Banda on 11-17-2023 Erythrocyte distribution width (RBC) [Entitic vol] 39.5 fL 35.1-43.9 [facility] Erythrocyte distribution width (RBC) [Ratio] 12.7 % 11.6-14.6 [facility] Immature granulocytes/100 WBC (Bld) 0.400 % 0.0-0.9 [facility] Comment on above: IG% - Immature Granu locytes (promyelocytes, myelocytes and metamyelocytes) > 1% indicates that a LEFT SHIFT is Present. MCH (RBC) [Entitic mass] 29.4 pg 27.0-32.0 [facility] Nucleated RBC/100 WBC (Bld) [Ratio] 0 % 0-5 [facility] MCHC Auto (RBC) [Mass/Vol]Or dered By: Curry Banda on 11-17-2023 MCHC (RBC) [Mass/Vol] 34.3 g/dL 32-36 [facility] No Panel InformationOrdered By: Curry Banda on 11-17-2023 Estimated GFR (MDRD) Amer 119 mL/min >60 [facility] Comment on above: GFR Calc Estimated GFR (MDRD) Non-Af Amer 98 mL/min >60 [facility] Comment on above: Non- GFR Calc Thyroid Stimulating Hormone (TSH) 2.00 uIU/mL 0.358-3.74 [facility] Platelets bldOrdered By: Daksha Banda on 11-17-2023 Platelets (Bld) [#/Vol] 258 10*3/uL 150-450 [facility] Serum or plasma albumin franck urement (mass/volume)Ordered By: Curry Banda on 11-17-2023 Albumin [Mass/Vol] 3.4 g/dL 3.2-5.0 [facility] Serum or plasma albumin/glob ulin mass ratioOrdered By: Curry Banda on 11-17-2023 Albumin/Globulin [Mass ratio] 1.0 {ratio} 0.9-2.4 [facility] Serum or plasma calcium franck urement (mass/volume)Ordered By: Curry Banda on 11-17-2023 Calcium [Mass/Vol] 8.5 mg/dL 8.5-10.1 [facility] Serum or plasma cholesterol in HDL measurement (mass/volume)Ordered By: Curry Banda on 11-17-2023 Cholesterol in HDL [Mass/Vol] 25 mg/dL >40 [facility] Comment on above: The drugs N-Acetylcy steine and Metamizole may falsely depress this assay. Reference Range HDL <40 mg/dL Low HDL Cholesterol HDL >or= 60 mg/dL High HDL Cholesterol Serum or plasma cholesterol in VLDL measurement (mass/volume)Ordered By: Curry Banda on 11-17-2023 Cholesterol in VLDL [Mass/Vol] 23 mg/dL 5-40 [facility] Serum or plasma creatinine m easurement (mass/volume)Ordered By: Curry Banad on 11-17-2023 Creatinine [Mass/Vol] 0.86 mg/dL 0.70-1.30 [facility] Comment on above: The validity of the calculated GFR & GFRAA in patients over 70 years has not been determined. Clinical correlation is essential. Serum or plasma low density lipoprotein (LDL) cholesterol measurement (mass/volume)Ordered By: Curry Banda on 11-17-2023 Cholesterol in LDL [Mass/Vol] 97 mg/dL 0-130 [facility] Serum or plasma urea nitroge n measurement (mass/volume)Ordered By: Curry Banda on 11-17-2023 Urea nitrogen [Mass/Vol] 11 mg/dL 7-18 [facility] Thin prep Papanicolaou smear with manual screeningOrdered By: Curry Banda on 11-17-2023 Thin prep Papanicolaou smear with manual screening 29 U/L 15-37 [facility] Thin prep Papanicolaou smear with manual screening 9 5-15 [facility] - Chemistry and C hemistry - challengeon 09-24-2023 Free T4 [Mass/Vol] 0.93 ng/dL 0.76-1.46 [facility] No Panel Informationon 09-24 Free Triiodothyronine (T3) pg/dL 2.8 pg/mL 2.18-3.98 [facility] Miscellaneous Test See comment [facility] Comment on above: TEST RESULTS LIMITST SH Receptor Antibody (TBII) <0.3 U/LReference Range:Antibody Titer:<1.0 U/L = Negative1.1 - 1.5 U/L = Equivocal>1.5 U/L = Positive TESTING PERFORMED AT [facility]. ORIGINAL REPORT ON FILE IN LAB CONTAINS ADDITIONAL TEST SITE INFORMATION. Thyroid Stimulating Hormone (TSH) 3.02 uIU/mL 0.358-3.74 [facility] Thyroid stimulating immunogl obulins detectionon 09-24-2023 Thyroid stimulating immunoglobulins Ql (S) <0.10 IU/L 0.00-0.55 [facility] Comment on above: Performed at: - [facility] [address] [id number] Director: Ronnie Lieberman MD, Phone: [phone] Laboratory - Chemistry and C hemistry - challengeon 05-24-2023 Free T4 [Mass/Vol] 0.90 ng/dL 0.76-1.46 [facility] No Panel Informationon 05-24 Free Triiodothyronine (T3) pg/dL 2.7 pg/mL 2.18-3.98 [facility] Miscellaneous Test See comment [facility] Comment on above: TEST RESULT LIMITSTS H Receptor Antibody (TBII) <0.3 U/L Reference Range: Antibody Titer: <1.0 U/L = Negative 1.1 - 1.5 U/L = Equivocal >1.5 U/L = Positive ___ [facility]FORMED AT [facility] ORIGINAL REPORT ON FILE IN LAB CONTAINS ADDITIONAL TEST SITE INFORMATION. Thyroid Stimulating Hormone (TSH) 2.28 uIU/mL 0.358-3.74 [facility] Thyroid stimulating immunogl obulins detectionon 05-24-2023 Thyroid stimulating immunoglobulins Ql (S) <0.10 IU/L 0.00-0.55 [facility] Comment on above: Performed at: [address] [id number] Director: Ronnie Lieberman MD, Phone: [phone] Basophil percentageon 2021 Chloride [Moles/Vol] 106 mmol/L 98-107 [facility] Work Phone: Glucose [Mass/Vol] 92 mg/dL 74-106 [facility] Work Phone: Potassium [Moles/Vol] 3.9 mmol/L 3.5-5.1 [facility] Work Phone: Comment on above: Moderate Hemolysis, Result may be falsely increased. Sodium [Moles/Vol] 139 mmol/L 136-145 [facility] Work Phone: Laboratory - Chemistry and C hemistry - challengeon 07-22-2022 CO2 [Moles/Vol] 28.0 mmol/L 21.0-32.0 [facility] Work Phone: Urea nitrogen/Creatinine [Mass ratio] 16.3 mg/mg 10-20 [facility] Work Phone: No Panel Informationon 07-22 Estimated GFR (MDRD) Amer 130 mL/min >60 [facility] Work Phone: Comment on above: GFR Calc Estimated GFR (MDRD) Non-Af Amer 107 mL/min >60 [facility] Work Phone: Comment on above: Non- GFR Calc Serum or plasma calcium franck urement (mass/volume)on 07-22-2022 Calcium [Mass/Vol] 9.2 mg/dL 8.5-10.1 [facility] Work Phone: Serum or plasma creatinine m easurement (mass/volume)on 07-22-2022 Creatinine [Mass/Vol] 0.80 mg/dL 0.70-1.30 [facility] Work Phone: Comment on above: The validity of the calculated GFR & GFRAA in patients over 70 years has not been determined. Clinical correlation is essential. Serum or plasma urea nitroge n measurement (mass/volume)on 07-22-2022 Urea nitrogen [Mass/Vol] 13 mg/dL 7-18 [facility] Work Phone: Thin prep Papanicolaou smear with manual screeningon 07-22-2022 Thin prep Papanicolaou smear with manual screening 5 5-15 [facility] Work Phone: Routine EKG Treadmill Stress Teston 06-20-2021 Routine EKG Treadmill Stress Test Patient Name: JORGITO FRAGA Ultrasound ACCESSION EXAM DATE/TIME PROCEDURE ORDERING PROVIDER [id number] 06/20/2021 15:28 EDT Routine EKG Treadmill MD HECTOR, FELIBERTO UMANA Stress Test Reason For Exam (Routine EKG Treadmill Stress Test) Chest pain Report EXERCISE ECG STRESS TEST Demetri Protocol PATIENT: Jorgito Fraga STUDY DATE: 06/20/2021 [facility]#: [id number] : 1965 AGE: 55 HT/WT: 188 cm (74 150 kg (330 in) lb) GENDER: M BP: 139 / 78 LOCATION: [address] STATUS: *ORDERING PHYSICIAN: * Feliberto Banda *SUPERVISING PHYSICIAN: * Dexter Mcknight MD *RN: * Bella Lomeli *READING PHYSICIAN: * Dexter Mcknight MD -------- INDICATIONS: Chest pain. -------- HISTORY: Family history of cardiovascular disease. Tobacco use former Atrial fibrillation. Medications: Aspirin. Dofetilide (Tikosyn). Tapazole. Allergies: No known allergies. Patient is NPO per policy. Catheterization (2019). -------- CONCLUSIONS SUMMARY: 1. Exercise stress test negative for ischemia. 2. Stress: Functional capacity is average. 3. Stress ECG conclusions: The stress ECG is normal. Estrada scoring: exercise time of 6 min; maximum ST deviation of 0 mm; no angina; resulting score is 6.0. This score predicts a low risk of cardiac events. -------- STUDY DATA: Exercise ECG stress test. Procedure: Initial setup. A baseline ECG was recorded. Surface ECG leads and blood pressure measurements were monitored. Treadmill exercise testing was performed using the Demetri protocol. The patient exercised for 6 min 12 sec, to a maximal work rate of 7.2 mets. Exercise was terminated due to moderate fatigue. Exercise was terminated when the patient's Jackie scale was 17. Study status: Routine. Patient status: Outpatient. Pre pain assessment is 0 out of 10. Post pain assessment is 0 out of 10. Location: Echo laboratory. Consent: The procedure was reviewed with the patient and the patient voices understanding. Study completion: Ultrasound Report The patient tolerated the procedure well. There were no complications. Discharge: Discharge instructions given The patient was discharged to homewhile ambulatory. -------- FINDINGS BASELINE ECG: Normal. STRESS PROTOCOL: + +---+-- + --+ +Stage +HR +BP +Symptoms + + +---+-- + --+ +Rest +73 +139/78 (98) +No symptoms.+ + +---+-- + --+ +Peak stress +148+162/90 (114)+ + + +---+-- + --+ +Recovery +111+160/80 (107)+ + + +---+-- + --+ +Late recovery+96 +140/80 (100)+ + + +---+-- + --+ STRESS RESULTS: There is an appropriate blood pressure response to stress. The rate-pressure product for the peak heart rate and blood pressure was 85533 mm Hg/min. Functional capacity is average. Peak heart rate during stress was 148 bpm (89% of maximal predicted heart rate). The maximal predicted heart rate was 167 bpm.The target heart rate was achieved. The heart rate recovery at one minute is normal. The heart rate at 1 minute into recovery was 130 bpm. The heart rate response to stress was normal. STRESS ECG: The stress ECG is normal. Estrada scoring: exercise time of 6 min; maximum ST deviation of 0 mm; no angina; resulting score is 6.0. This score predicts a low risk of cardiac events. Electronically signed by Dexter Mcknight MD 06/20/2021 16:48 Prior Signatures: Final Dictated: 06/20/2021 4:49 pm Dictating Physician: MD MCKNIGHT KENNETH D Signed Date and Time: 06/20/2021 4:48 pm Signed by: MD MCKNIGHT KENNETH D Normal [facility] Echo 2D Doppler Coloron 10-0 TRANSTHORACIC ECHOCARDIOGRAM PATIENT: Jorgito Fraga STUDY DATE: 08/30/2019 : 1965 AGE: 53 HT/WT: 188 cm (74 136.1 kg in) (299.4 lb) GENDER: M BP: 147 / 88 LOCATION: [facility]IENT [facility] STATUS: *ORDERING PHYSICIAN: * Mallorie Ambrosio *READING PHYSICIAN: * Kayla, *MAGNETIC TAPE TYPEWRITER OPERATOR: * Kristen Reeves MD RD, AE -------- INDICATIONS: Non-ischemic cardiomyopathy (I42.8). Tachycardia mediated cardiomyopathy. -------- CONCLUSIONS SUMMARY: 1. Left ventricle: The cavity size is normal. Wall thickness is mildly increased. Systolic function is normal by the biplane method of disks. The estimated ejection fraction is 58%. 2. Right ventricle: The cavity size is normal. Systolic function is normal. 3. No significant valve disease. -------- STUDY DATA: Complete transthoracic echocardiogram. Procedure: Image quality was poor. The study was technically limited due to poor acoustic window availability and body habitus. Intravenous imaging enhancement (Definity) was administered. Definity lot #: [id number]. M-mode, complete 2D, complete spectral Doppler, and color flow Doppler images were acquired and archived for permanent storage and are available for subsequent review. Study status: Routine. Patient status: Outpatient. -------- FINDINGS LEFT VENTRICLE: The cavity size is normal. Wall thickness is mildly increased. Systolic function is normal by the biplane method of disks. The estimated ejection fraction is 58%. There are no regional wall motion abnormalities. Left ventricular diastolic function parameters are normal. RIGHT VENTRICLE: The cavity size is normal. Systolic function is normal. VENTRICULAR SEPTUM: There is no evidence of a ventricular septal defect. LEFT ATRIUM: The atrium is normal in size. RIGHT ATRIUM: The atrium is normal in size. ATRIAL SEPTUM: Color Doppler shows no shunt. MITRAL VALVE: Structurally normal valve. Doppler: There is no regurgitation. AORTIC VALVE: Structurally normal valve. Trileaflet. Doppler: There is no regurgitation. The peak systolic gradient is 7 mm Hg. The peak systolic velocity is 1.3 m/sec. TRICUSPID VALVE: Structurally normal valve. Doppler: There is trivial, less than 1+ regurgitation. PULMONIC VALVE: Structurally normal valve. Doppler: There is trivial, less than 1+ regurgitation. AORTA: The aorta is normal. PULMONARY ARTERY: Main pulmonary artery: Normal. PERICARDIUM: There is no pericardial effusion. SYSTEMIC VEINS: Not well visualized. Inferior vena cava: Not well visualized. -------- Measurements Value Reference Aortic root ID 3.2 cm <4.7 Aortic root ID, STJ, ED 3.2 cm 2.3 - 3.5 Aortic root ID/bsa, STJ, ED 1.2 cm/m^2 1.1 - 1.9 Value Reference Ascending aorta ID, A-P, S 3.5 cm Ascending aorta ID/bsa, A-P, S 1.3 cm/m^2 Left ventricle Value Reference LV ID, ED 4.6 cm 4.2 - 5.8 LV ID, ES 2.9 cm 2.5 - 4.0 LV ID/bsa, ED (L) 1.7 cm/m^2 2.2 - 3.0 LV ID/bsa, ES (L) 1.1 cm/m^2 1.3 - 2.1 LV PW thickness, ED (H) 1.6 cm 0.6 - 1.0 LV PW/LV ID ratio, ED 0.34 LV wall mass (H) 296 g 96 - 200 LV wall mass/bsa (H) 109 g/m^2 50 - 102 Stroke volume/bsa, 1-p A2C 23.2 ml/m^2 LV end-diastolic volume, 1-p A4C (H) 191 ml 69 - 185 LV end-systolic volume, 1-p A4C 70 ml 22 - 78 LV end-diastolic volume, 2-p (H) 162 ml 62 - 150 LV end-systolic volume, 2-p (H) 68 ml 21 - 61 LV ejection fraction, 2-p 58 % 52 - 72 LV E/e', lateral 7.9 LV E/e', medial 7.7 LV E/e', average 7.8 Ventricular septum Value Reference IVS thickness, ED (H) 1.5 cm 0.6 - 1.0 LVOT Value Reference LVOT ID, A-P 2.4 cm LVOT mean velocity, S 0.7 m/sec LVOT peak gradient, S 4 mm Hg Stroke volume (SV), LVOT DP 82 ml Stroke index (SV/bsa), LVOT DP 30 ml/m^2 Aortic valve Value Reference Aortic valve peak velocity, S 1.3 m/sec Aortic peak gradient, S 7 mm Hg Left atrium Value Reference LA volume/bsa, ES, 2-p 30 ml/m^2 16 - 34 Mitral valve Value Reference Mitral E-wave peak velocity 0.6 m/sec Mitral A-wave peak velocity 0.6 m/sec Mitral deceleration time 317 ms Mitral E/A ratio, peak 1.1 Pulmonary arteries Value Reference PA pressure, S, DP 25 mm Hg Tricuspid valve Value Reference Tricuspid regurg peak velocity 2.3 m/sec <=2.8 Tricuspid peak RV-RA gradient 22 mm Hg Right ventricle Value Reference RV ID, minor axis, ED, A4C base (H) 4.2 cm 2.5 - 4.1 RV ID, minor axis, ED, A4C mid 3.1 cm 1.9 - 3.5 TAPSE, 2D 2.3 cm 1.7 - 3.1 RV pressure, S, DP 25 mm Hg RV s', lateral 11.7 cm/sec 6.0 - 13.4 Legend: (L) and (H) igor values outside specified reference range. Electronically signed by Lala Garza MD 08/30/2019 15:15 Prior Signatures: [facility] [place], [facility] Incoming Cardiology Results From [facility]/[employer] - 08/30/2019 3:15 PM EDT TRANSTHORACIC ECHOCARDIOGRAM PATIENT: Jorgito Fraga STUDY DATE: 08/30/2019 : 1965 AGE: 53 HT/WT: 188 cm (74 136.1 kg in) (299.4 lb) GENDER: M BP: 147 / 88 LOCATION: [facility] STATUS: *ORDERING PHYSICIAN: * Mallorie Ambrosio *READING PHYSICIAN: * Kayla, *MAGNETIC TAPE TYPEWRITER OPERATOR: * Kristen Reeves MD RDCS, AE -------- INDICATIONS: Non-ischemic cardiomyopathy (I42.8). Tachycardia mediated cardiomyopathy. -------- CONCLUSIONS SUMMARY: 1. Left ventricle: The cavity size is normal. Wall thickness is mildly increased. Systolic function is normal by the biplane method of disks. The estimated ejection fraction is 58%. 2. Right ventricle: The cavity size is normal. Systolic function is normal. 3. No significant valve disease. -------- STUDY DATA: Complete transthoracic echocardiogram. Procedure: Image quality was poor. The study was technically limited due to poor acoustic window availability and body habitus. Intravenous imaging enhancement (Definity) was administered. Definity lot #: [id number]. M-mode, complete 2D, complete spectral Doppler, and color flow Doppler images were acquired and archived for permanent storage and are available for subsequent review. Study status: Routine. Patient status: Outpatient. -------- FINDINGS LEFT VENTRICLE: The cavity size is normal. Wall thickness is mildly increased. Systolic function is normal by the biplane method of disks. The estimated ejection fraction is 58%. There are no regional wall motion abnormalities. Left ventricular diastolic function parameters are normal. RIGHT VENTRICLE: The cavity size is normal. Systolic function is normal. VENTRICULAR SEPTUM: There is no evidence of a ventricular septal defect. LEFT ATRIUM: The atrium is normal in size. RIGHT ATRIUM: The atrium is normal in size. ATRIAL SEPTUM: Color Doppler shows no shunt. MITRAL VALVE: Structurally normal valve. Doppler: There is no regurgitation. AORTIC VALVE: Structurally normal valve. Trileaflet. Doppler: There is no regurgitation. The peak systolic gradient is 7 mm Hg. The peak systolic velocity is 1.3 m/sec. TRICUSPID VALVE: Structurally normal valve. Doppler: There is trivial, less than 1+ regurgitation. PULMONIC VALVE: Structurally normal valve. Doppler: There is trivial, less than 1+ regurgitation. AORTA: The aorta is normal. PULMONARY ARTERY: Main pulmonary artery: Normal. PERICARDIUM: There is no pericardial effusion. SYSTEMIC VEINS: Not well visualized. Inferior vena cava: Not well visualized. -------- Measurements Value Reference Aortic root ID 3.2 cm <4.7 Aortic root ID, STJ, ED 3.2 cm 2.3 - 3.5 Aortic root ID/bsa, STJ, ED 1.2 cm/m^2 1.1 - 1.9 Value Reference Ascending aorta ID, A-P, S 3.5 cm Ascending aorta ID/bsa, A-P, S 1.3 cm/m^2 Left ventricle Value Reference LV ID, ED 4.6 cm 4.2 - 5.8 LV ID, ES 2.9 cm 2.5 - 4.0 LV ID/bsa, ED (L) 1.7 cm/m^2 2.2 - 3.0 LV ID/bsa, ES (L) 1.1 cm/m^2 1.3 - 2.1 LV PW thickness, ED (H) 1.6 cm 0.6 - 1.0 LV PW/LV ID ratio, ED 0.34 LV wall mass (H) 296 g 96 - 200 LV wall mass/bsa (H) 109 g/m^2 50 - 102 Stroke volume/bsa, 1-p A2C 23.2 ml/m^2 LV end-diastolic volume, 1-p A4C (H) 191 ml 69 - 185 LV end-systolic volume, 1-p A4C 70 ml 22 - 78 LV end-diastolic volume, 2-p (H) 162 ml 62 - 150 LV end-systolic volume, 2-p (H) 68 ml 21 - 61 LV ejection fraction, 2-p 58 % 52 - 72 LV E/e', lateral 7.9 LV E/e', medial 7.7 LV E/e', average 7.8 Ventricular septum Value Reference IVS thickness, ED (H) 1.5 cm 0.6 - 1.0 LVOT Value Reference LVOT ID, A-P 2.4 cm LVOT mean velocity, S 0.7 m/sec LVOT peak gradient, S 4 mm Hg Stroke volume (SV), LVOT DP 82 ml Stroke index (SV/bsa), LVOT DP 30 ml/m^2 Aortic valve Value Reference Aortic valve peak velocity, S 1.3 m/sec Aortic peak gradient, S 7 mm Hg Left atrium Value Reference LA volume/bsa, ES, 2-p 30 ml/m^2 16 - 34 Mitral valve Value Reference Mitral E-wave peak velocity 0.6 m/sec Mitral A-wave peak velocity 0.6 m/sec Mitral deceleration time 317 ms Mitral E/A ratio, peak 1.1 Pulmonary arteries Value Reference PA pressure, S, DP 25 mm Hg Tricuspid valve Value Reference Tricuspid regurg peak velocity 2.3 m/sec <=2.8 Tricuspid peak RV-RA gradient 22 mm Hg Right ventricle Value Reference RV ID, minor axis, ED, A4C base (H) 4.2 cm 2.5 - 4.1 RV ID, minor axis, ED, A4C mid 3.1 cm 1.9 - 3.5 TAPSE, 2D 2.3 cm 1.7 - 3.1 RV pressure, S, DP 25 mm Hg RV s', lateral 11.7 cm/sec 6.0 - 13.4 Legend: (L) and (H) igor values outside specified reference range. Electronically signed by Lala Garza MD 08/30/2019 15:15 Prior Signatures: [place], [place] Basic Metabolic Panelon Anion gap [Moles/Vol] 10 mmol/L [place], [place] Calcium [Mass/Vol] 9.4 mg/dL 8.4 - 10. 4 mg/dL [place] Chloride [Moles/Vol] 102 mmol/L 98 - 10 7 mmol/L [place] CO2 [Moles/Vol] 27 mmol/L 22 - 30 mmol/L [place] Creatinine [Mass/Vol] 0.59 mg/dL 0.52 - 1.25 mg/dL [place] EGFR IF NonAfrican Sammarinese >60.0 >60 mL/min [place], [place] Comment on above: Source- MDRD equatio n with creatinine calibration to IDMS(NKDEP) eGFR not recommended for drug dose adjustment GFR/1.73 sq M predicted among blacks MDRD (S/P/Bld) [Vol rate/Area] mL/min/{1.73_m2} >60 mL/min [place] Glucose [Mass/Vol] 97 mg/dL 70 - 100 mg/dL [place] Potassium [Moles/Vol] 4.3 mmol/L 3.5 - 5.1 mmol/L [place] Sodium [Moles/Vol] 139 mmol/L 135 - 145 mmol/L [place] Urea nitrogen [Mass/Vol] 14 mg/dL 7 - 20 mg/dL [place], [place] EKG 12 Leadon 06-30-2019 [place], [employer] Incoming Cardiology Results From [facility] - 06/30/2019 8:55 AM EDT [facility] Test Date: 2019-06-29 Pat Name: Jorgito Fraga Department: 27 Room: 1438 Gender: M Sanitation Supervisor: SANDEEP : 1965 Requested By: Order Number: [id number] Reading MD: Jose Milligan Measurements Intervals [place] Rate: 76 P: 54 VT: 173 QRS: -1 QRSD: 101 T: -5 QT: 411 QTc: 463 Interpretive Statements Sinus rhythm Abnormal R-wave progression, early transition Borderline T abnormalities, inferior leads Compared to ECG 06/29/2019 14:07:39 Sinus bradycardia no longer present T-wave abnormality still present Electronically Signed On 06-30-2019 8:53:55 EDT by [employer] [facility] Test Date: 2019-06-29 Pat Name: Jorgito Fraga Department: 27 Room: 1438 Gender: M Sanitation Supervisor: SANDEEP : 1965 Requested By: Order Number: [id number] Reading MD: Jose Srini Measurements Intervals [place] Rate: 76 P: 54 VT: 173 QRS: -1 QRSD: 101 T: -5 QT: 411 QTc: 463 Interpretive Statements Sinus rhythm Abnormal R-wave progression, early transition Borderline T abnormalities, inferior leads Compared to ECG 06/29/2019 14:07:39 Sinus bradycardia no longer present T-wave abnormality still present Electronically Signed On 06-30-2019 8:53:55 EDT by Whatser, [employer] [facility] Test Date: 2019-06-29 Pat Name: Jorgito Fraga Department: 1A4W Room: 1438 Gender: M Sanitation Supervisor: JESSIKA : 1965 Requested By: Order Number: [id number] Reading MD: Josekristy Perdomoem Measurements Intervals [place] Rate: 56 P: -10 VT: 200 QRS: -7 QRSD: 101 T: -16 QT: 441 QTc: 426 Interpretive Statements Sinus bradycardia Borderline T abnormalities, inferior leads Compared to ECG 06/29/2019 11:00:13 Atrial fibrillation no longer present T-wave abnormality still present Electronically Signed On 06-30-2019 8:50:46 EDT by [employer] [facility], [place], [facility] Incoming Cardiology Results From [facility] - 06/30/2019 8:51 AM EDT [facility] Test Date: 2019-06-29 Pat Name: Jorgito Fraga Department: 1A4W Room: 1438 Gender: M Sanitation Supervisor: JESSIKA : 1965 Requested By: Order Number: [id number] Reading MD: Jose Srini Measurements Intervals [place] Rate: 56 P: -10 VT: 200 QRS: -7 QRSD: 101 T: -16 QT: 441 QTc: 426 Interpretive Statements Sinus bradycardia Borderline T abnormalities, inferior leads Compared to ECG 06/29/2019 11:00:13 Atrial fibrillation no longer present T-wave abnormality still present Electronically Signed On 06-30-2019 8:50:46 EDT by [employer] [facility], [place], [facility] Incoming Cardiology Results From [facility] - 06/30/2019 8:48 AM EDT [facility] Test Date: 2019-06-29 Pat Name: Jorgito Fraga Department: 1A4 Room: 1438 Gender: M Sanitation Supervisor: JESSIKA : 1965 Requested By: Order Number: [id number] Reading MD: Jose Milligan Measurements Intervals [place] Rate: 92 P: VT: QRS: -2 QRSD: 100 T: -13 QT: 403 QTc: 499 Interpretive Statements Atrial fibrillation Abnormal R-wave progression, early transition Borderline T abnormalities, inferior leads Borderline prolonged QT interval Compared to ECG 06/28/2019 23:02:04 No significant changes Electronically Signed On 06-30-2019 8:47:13 EDT by [facility] [place] [facility] Test Date: 2019-06-29 Pat Name: Jorgito Fraga Department: 1A4 Room: 1438 Gender: M Sanitation Supervisor: JESSIKA : 1965 Requested By: Order Number: [id number] Reading MD: Jose Milligan Measurements Intervals [place] Rate: 92 P: VT: QRS: -2 QRSD: 100 T: -13 QT: 403 QTc: 499 Interpretive Statements Atrial fibrillation Abnormal R-wave progression, early transition Borderline T abnormalities, inferior leads Borderline prolonged QT interval Compared to ECG 06/28/2019 23:02:04 No significant changes Electronically Signed On 06-30-2019 8:47:13 EDT by [employer] [facility], [place] Magnesium[facility] 06-30-2019 Magnesium [Mass/Vol] 1.9 mg/dL 1.6 - 2 .3 mg/dL [facility] [place] Otheron 06-30-2019 Test Performed by [facility], [address] [place] [id number] [place], [place] Basic Metabolic Panelon Anion gap [Moles/Vol] 10 mmol/L [place] Calcium [Mass/Vol] 9.4 mg/dL 8.4 - 10. 4 mg/dL [place] Chloride [Moles/Vol] 103 mmol/L 98 - 10 7 mmol/L [place] CO2 [Moles/Vol] 26 mmol/L 22 - 30 mmol/L [place] Creatinine [Mass/Vol] 0.59 mg/dL 0.52 - 1.25 mg/dL [place] EGFR IF NonAfrican Sammarinese >60.0 >60 mL/min [place], [place] Comment on above: Source- MDRD equatio n with creatinine calibration to IDMS(NKDEP) eGFR not recommended for drug dose adjustment GFR/1.73 sq M predicted among blacks MDRD (S/P/Bld) [Vol rate/Area] mL/min/{1.73_m2} >60 mL/min [place], [place] Glucose [Mass/Vol] 110 mg/dL High 70 - 100 mg/dL [place] Interpretation and review of laboratory results Abnormal [place] Potassium [Moles/Vol] 4.4 mmol/L 3.5 - 5.1 mmol/L [place] Sodium [Moles/Vol] 139 mmol/L 135 - 145 mmol/L [place] Urea nitrogen [Mass/Vol] 17 mg/dL 7 - 20 mg/dL [place] CARDIOLOGY REPORTon 06-29-20 19 Feliberto Banda M D - 06/29/2019 3:45 PM EDT [facility] PATIENT: JORGITO FRAGA MEDICAL RECORD#: [id number] DATE OF SERVICE: 06/29/2019 DATE OF : 1965 AGE: 53 ADMITTING PHYSICIAN: Feliberto Banda MD ATTENDING PHYSICIAN: Feliberto Banda MD SUPERVISING PHYSICIAN: Feliberto Banda MD REFERRING PHYSICIAN: DICTATING FELLOW: ?? ORDER: ?? CARDIOVERSION The preliminary dictation may be dictated by a Cardiology fellowship physician and will be noted above. The supervising physician is responsible for editing the report and by signing the report states the approval of the accuracy of the document. PROCEDURE: DIRECT CURRENT CARDIOVERSION HISTORY: The patient is a 53-year-old loaded with dofetilide presents for cardioversion. DESCRIPTION OF PROCEDURE: After informed consent was obtained, the patient was brought to the electrophysiology laboratory in the fasting, nonsedated state. After sedation with propofol per the anesthesia division, a 200-joule synchronized biphasic shock was then delivered with patches in the anterior-posterior position. This restored sinus rhythm at 60 beats per minute. The patient tolerated the procedure very well and left the EP lab in stable condition. There were no apparent complications. SUMMARY: Status post direct current cardioversion from atrial fibrillation to sinus rhythm. [facility] Job ID: [id number] Feliberto Banda MD DOD: 06/29/2019 01:22 P RADHA/stephanie DOT: 06/29/2019 03:45 P Job Number: [id number] Document Number: [id number] cc: Feliberto Banda MD [address] [place] [address] 300 Counts include 234 beds at the [facility] [address] [employer] [facility], [place] EKG 12 Leadon 06-29-2019 [facility] Test Date: 2019-06-28 Pat Name: Jorgito Fraga Department: 1A4W Room: [facility]8 Gender: M Sanitation Supervisor: PAUL : 1965 Requested By: Order Number: [id number] Reading HARVINDER Tobin Intervals [place] Rate: 93 P: VT: QRS: -4 QRSD: 98 T: -21 QT: 384 QTc: 478 Interpretive Statements Atrial fibrillation Borderline T abnormalities, inferior leads Borderline prolonged QT interval Electronically Signed On 06-29-2019 20:30:44 EDT by Frankie Cerda [facility] [place], [facility] Incoming Cardiology Results From [facility]/Emma - 06/29/2019 8:31 PM EDT [facility] Test Date: 2019-06-28 Pat Name: Jorgito Fraga Department: 1A4W Room: 1438 Gender: M Sanitation Supervisor: PAUL : 1965 Requested By: Order Number: [id number] Reading MD: Frankie Redle Measurements Intervals [place] Rate: 93 P: VT: QRS: -4 QRSD: 98 T: -21 QT: 384 QTc: 478 Interpretive Statements Atrial fibrillation Borderline T abnormalities, inferior leads Borderline prolonged QT interval Electronically Signed On 06-29-2019 20:30:44 EDT by Frankie [facility] [place], [facility] Incoming Cardiology Results From [facility] - 06/29/2019 8:19 PM EDT [facility] Test Date: 2019-06-28 Pat Name: Jorgito Fraga Department: 1A4W Room: [facility] Gender: M Sanitation Supervisor: [facility] : 1965 Requested By: Order Number: [id number] Reading MD: Frankie Cerda Measurements Intervals [place] Rate: 97 P: VT: QRS: 6 QRSD: 100 T: -12 QT: 394 QTc: 501 Interpretive Statements Atrial fibrillation Prolonged QT interval Electronically Signed On 06-29-2019 20:18:56 EDT by Frankie Cerda [facility], ALISSA [facility] [employer] [facility] Test Date: 2019-06-28 Pat Name: Jorgito Flakito Department: 1A4W Room: 1438 Gender: M Sanitation Supervisor: [facility] : 1965 Requested By: Order Number: [id number] Reading MD: Frankie Cerda Measurements Intervals [place] Rate: 97 P: VT: QRS: 6 QRSD: 100 T: -12 QT: 394 QTc: 501 Interpretive Statements Atrial fibrillation Prolonged QT interval Electronically Signed On 06-29-2019 20:18:56 EDT by Frankie Cerda [place], [place] Magnesiumon 06-29-2019 Magnesium [Mass/Vol] 1.9 mg/dL 1.6 - 2 .3 mg/dL [place] Otheron 06-29-2019 Test Performed by [facility], [address] [place] [address] [place], [place] Basic Metabolic Panelon Anion gap [Moles/Vol] 9 mmol/L [place] Calcium [Mass/Vol] 9.3 mg/dL 8.4 - 10. 4 mg/dL [place] Chloride [Moles/Vol] 104 mmol/L 98 - 10 7 mmol/L [place] CO2 [Moles/Vol] 25 mmol/L 22 - 30 mmol/L [place] Creatinine [Mass/Vol] 0.65 mg/dL 0.52 - 1.25 mg/dL [place] EGFR IF NonAfrican Sammarinese >60.0 >60 mL/min [place] Comment on above: Source- MDRD equatio n with creatinine calibration to IDMS(NKDEP) eGFR not recommended for drug dose adjustment GFR/1.73 sq M predicted among blacks MDRD (S/P/Bld) [Vol rate/Area] mL/min/{1.73_m2} >60 mL/min [place] Glucose [Mass/Vol] 106 mg/dL High 70 - 100 mg/dL [place] Interpretation and review of laboratory results Abnormal [place] Potassium [Moles/Vol] 4.4 mmol/L 3.5 - 5.1 mmol/L [place] Sodium [Moles/Vol] 138 mmol/L 135 - 145 mmol/L [place] Urea nitrogen [Mass/Vol] 17 mg/dL 7 - 20 mg/dL [place] EKG 12 Leadon 06-28-2019 [facility] Test Date: 2019-06-27 Pat Name: Jorgito Fraga Department: [facility] Room: [facility] Gender: M Sanitation Supervisor: ALEJANDRO : 1965 Requested By: Order Number: [id number] Reading MD: Miguel Ansari Measurements Intervals [place] Rate: 102 P: VT: QRS: -5 QRSD: 100 T: -17 QT: 380 QTc: 496 Interpretive Statements Atrial fibrillation Borderline T abnormalities, inferior leads Electronically Signed On 06-28-2019 12:55:17 EDT by Miguel Ansari [place], [place], [facility] Incoming Cardiology Results From [facility] - 06/28/2019 12:56 PM EDT [facility] Test Date: 2019-06-27 Pat Name: Jorgito Fraga Department: 1A4 Room: 1438 Gender: M Sanitation Supervisor: ALEJANDRO : 1965 Requested By: Order Number: [id number] Reading MD: Miguel Ansari Measurements Intervals [place] Rate: 102 P: VT: QRS: -5 QRSD: 100 T: -17 QT: 380 QTc: 496 Interpretive Statements Atrial fibrillation Borderline T abnormalities, inferior leads Electronically Signed On 06-28-2019 12:55:17 EDT by Miguel Ansari [place], [place] EKG 12 leadon 06-28-2019 [place], [facility] Incoming Cardiology Results From [facility] - 06/28/2019 5:41 PM EDT [facility] Test Date: 2019-06-27 Pat Name: Jorgito Fraga Department: 1A4W Room: [facility] Gender: M Sanitation Supervisor: [place] : 1965 Requested By: Order Number: [id number] Reading : Miguel Ansari Measurements Intervals [place] Rate: 98 P: VT: QRS: -6 QRSD: 96 T: -15 QT: 351 QTc: 449 Interpretive Statements Atrial fibrillation Borderline T abnormalities, inferior leads Electronically Signed On 06-28-2019 17:40:31 EDT by Miguel Ansari [facility], [place] [facility] Test Date: 2019-06-27 Pat Name: Jorgito Fraga Department: 1A4W Room: [facility] Gender: M Sanitation Supervisor: [place] : 1965 Requested By: Order Number: [id number] Reading HARVINDER Ansari Measurements Intervals [place] Rate: 98 P: VT: QRS: -6 QRSD: 96 T: -15 QT: 351 QTc: 449 Interpretive Statements Atrial fibrillation Borderline T abnormalities, inferior leads Electronically Signed On 06-28-2019 17:40:31 EDT by Miguel Ansari [place], [place] Magnesiumon 06-28-2019 Magnesium [Mass/Vol] 1.9 mg/dL 1.6 - 2 .3 mg/dL [place] Otheron 06-28-2019 Test Performed by [employer] [facility], [address] [place] [address] [place] Basic Metabolic Panelon Anion gap [Moles/Vol] 11 mmol/L [place], [place] Calcium [Mass/Vol] 9.4 mg/dL 8.4 - 10. 4 mg/dL [place] Chloride [Moles/Vol] 102 mmol/L 98 - 10 7 mmol/L [place] CO2 [Moles/Vol] 27 mmol/L 22 - 30 mmol/L [place] Creatinine [Mass/Vol] 0.92 mg/dL 0.52 - 1.25 mg/dL [place] EGFR IF NonAfrican [place]ammar[place] >60.0 >60 mL/min [place] Comment on above: Source- MDRD equatio n with creatinine calibration to IDMS(NKDEP) eGFR not recommended for drug dose adjustment GFR/1.73 sq M predicted among blacks MDRD (S/P/Bld) [Vol rate/Area] mL/min/{1.73_m2} >60 mL/min [place] Glucose [Mass/Vol] 86 mg/dL 70 - 100 mg/dL [place] Potassium [Moles/Vol] 4.4 mmol/L 3.5 - 5.1 mmol/L [place] Sodium [Moles/Vol] 140 mmol/L 135 - 145 mmol/L [place] Urea nitrogen [Mass/Vol] 16 mg/dL 7 - 20 mg/dL [place] CBCon 06-27-2019 Erythrocyte distribution width (RBC) [Ratio] 14.0 % 11.5 - 14.5 % [place] Hematocrit (Bld) [Volume fraction] 40.7 % 40 - 52 % [place] Hemoglobin (Bld) [Mass/Vol] 14.2 g/dL 13 - 18 g/dL [place] Interpretation and review of laboratory results Abnormal [place] MCH (RBC) [Entitic mass] 30.0 pg 26 - 34 pg [place], [place] MCHC (RBC) [Mass/Vol] 34.8 % 32 - 36 % [place] MCV (RBC) [Entitic vol] 86.4 fL 80 - 98 fL M [place], [place] Platelet mean volume (Bld) [Entitic vol] 7.4 fL 7.4 - 10.4 fL [place], [place] Platelets (Bld) [#/Vol] 295 10*3/uL 140 - 440 10*3/uL [place] RBC (Bld) [#/Vol] 4.71 10*6/uL 4.4 - 5.9 10*6/uL [place] WBC (Bld) [#/Vol] 12.1 10*3/uL High 3.6 - 10.7 10*3/uL [place] Test Performed by [facility], [facility] [employer] [place], [place] [id number] [place] [address] Magnesiumon 06-27-2019 Magnesium [Mass/Vol] 2.0 mg/dL 1.6 - 2 .3 mg/dL [place] Otheron 06-27-2019 Test Performed by [place] [address] [employer] TSH without Reflexon 019 TSH Qn 4.454 u[IU]/mL 0.465 - 4.68 u[IU]/mL [place] Test Performed by [facility] aka [employer] [facility], [facility] [employer] Systems[place], [place] [id number] [place] [address] Vital Signs Date Time Vital Sign Value Performing Clinician Faci lity 05-21-2025 14:56-0400 Body height 188 cm Fernando Garcia MD Work Phone: [facility] 05-21-2025 14:56-0400 Body mass index (BMI) [Ratio] 43.24 kg/m2 Fernando Garcia MD Work Phone: [facility] 05-21-2025 14:56-0400 Body weight 152.77 kg Fernando Garcia MD Work Phone: [facility] 05-21-2025 14:56-0400 Diastolic blood pressure 85 mm[Hg] Fernando Garcia MD Work Phone: [facility] 05-21-2025 14:56-0400 Heart rate 66 /min Fernando Garcia MD Work Phone: [facility] 05-21-2025 14:56-0400 Systolic blood pressure 132 mm[Hg] Fernando Garcia MD Work Phone: [facility] 12-08-2024 14:45-0500 Body height 188 cm Jeanetterodrigue Dixon AP RN - HVAC ENGINEER Work Phone: [facility] 12-08-2024 14:45-0500 Body mass index (BMI) [Ratio] 43.01 kg/m2 Jeanette Celestinonough HISTOLOGIC AIDE - HVAC ENGINEER Work Phone: [facility] 12-08-2024 14:45-0500 Body weight 151.96 kg Jeanetterodrigue Dixon AP RN - HVAC ENGINEER Work Phone: [facility] 12-08-2024 14:45-0500 Diastolic blood pressure 72 mm[Hg] Jeanetterodrigue Dixon HISTOLOGIC AIDE - HVAC ENGINEER Work Phone: [facility] 12-08-2024 14:45-0500 Heart rate 65 /min Jeanetterodrigue Dixon AP RN - HVAC ENGINEER Work Phone: [facility] 12-08-2024 14:45-0500 SaO2% (BldA) [Mass fraction] 94 % Jeanette Celestinonough HISTOLOGIC AIDE - HVAC ENGINEER Work Phone: [facility] 12-08-2024 14:45-0500 Systolic blood pressure 120 mm[Hg] Jeanetterodrigue Dixon HISTOLOGIC AIDE - HVAC ENGINEER Work Phone: [facility] 05-16-2024 16:02-0400 Body height 188 cm Leann Bernard MD Work Phone: [facility] 05-16-2024 16:02-0400 Body mass index (BMI) [Ratio] 44.68 kg/m2 Leann Bernard MD Work Phone: [facility] 05-16-2024 16:02-0400 Body weight 157.85 kg Leann Bernard MD Work Phone: [facility] 05-16-2024 16:02-0400 Diastolic blood pressure 68 mm[Hg] Leann Bernard MD Work Phone: [facility] 05-16-2024 16:02-0400 Heart rate 78 /min Leann Bernard MD Work Phone: [facility] 05-16-2024 16:02-0400 Systolic blood pressure 112 mm[Hg] Leann Bernard MD Work Phone: [facility] 03-03-2024 15:19-0400 Body height 188 cm Meet Jt COLEY Work Phone: [facility] 03-03-2024 15:19-0400 Body mass index (BMI) [Ratio] 44.04 kg/m2 Meet Jt COLEY Work Phone: [facility] 03-03-2024 15:19-0400 Body weight 155.58 kg Meet Jt COLEY Work Phone: [facility] 03-03-2024 15:19-0400 Diastolic blood pressure 78 mm[Hg] Meet Jt COLEY Work Phone: [facility] 03-03-2024 15:19-0400 Heart rate 67 /min Meet Jt COLEY Work Phone: [facility] 03-03-2024 15:19-0400 SaO2% (BldA) [Mass fraction] 95 % Meet Jt COLEY Work Phone: [facility] 03-03-2024 15:19-0400 Systolic blood pressure 128 mm[Hg] Meet Jt COLEY Work Phone: [facility] 12-20-2023 12:51-0500 Body mass index (BMI) [Ratio] 44.17 kg/m2 Jeanette Dixon HISTOLOGIC AIDE - HVAC ENGINEER Work Phone: [facility] 12-20-2023 12:51-0500 Body weight 156.04 kg Jeanette Dixon AP RN - HVAC ENGINEER Work Phone: [facility] 12-20-2023 12:51-0500 Diastolic blood pressure 80 mm[Hg] Jeanette Dixon HISTOLOGIC AIDE - HVAC ENGINEER Work Phone: [facility] 12-20-2023 12:51-0500 Heart rate 67 /min Jeanettenadira Dixon AP RN - HVAC ENGINEER Work Phone: [facility] 12-20-2023 12:51-0500 SaO2% (BldA) [Mass fraction] 95 % Jeanette Woodsugh HISTOLOGIC AIDE - HVAC ENGINEER Work Phone: [facility] 12-20-2023 12:51-0500 Systolic blood pressure 110 mm[Hg] Jeanette Celestinonough HISTOLOGIC AIDE - HVAC ENGINEER Work Phone: [facility] 12-02-2023 13:33-0500 Diastolic blood pressure 68 mm[Hg] Meet Jt COLEY Work Phone: [facility] 12-02-2023 13:33-0500 Heart rate 70 /min Meet Jt COLEY Work Phone: [facility] 12-02-2023 13:33-0500 SaO2% (BldA) [Mass fraction] 98 % Meet Jt COLEY Work Phone: [facility] 12-02-2023 13:33-0500 Systolic blood pressure 104 mm[Hg] Meet Jt COLEY Work Phone: [facility] 12-02-2023 13:00-0500 Respiratory rate 18 /min Meet Jt COLEY Work Phone: [facility] 12-02-2023 11:05-0500 Body temperature 97 [degF] Meet Jt COLEY Work Phone: [facility] 12-02-2023 07:45-0500 Body height 188 cm Meet Jt COLEY Work Phone: [facility] 12-02-2023 07:45-0500 Body mass index (BMI) [Ratio] 44.44 kg/m2 Meet Jt COLEY Work Phone: [facility] 12-02-2023 07:45-0500 Body weight 157 kg Meet Jt COLEY Work Phone: [facility] 10-28-2023 15:30-0500 Body height 188 cm Leann Bernard MD Work Phone: [facility] 10-28-2023 15:30-0500 Body mass index (BMI) [Ratio] 44.55 kg/m2 Leann Bernard MD Work Phone: [facility] 10-28-2023 15:30-0500 Body weight 157.4 kg Leann Bernard MD Work Phone: [facility] 10-28-2023 15:30-0500 Diastolic blood pressure 74 mm[Hg] Leann Bernard MD Work Phone: [facility] 10-28-2023 15:30-0500 Heart rate 67 /min Leann Bernard MD Work Phone: [facility] 10-28-2023 15:30-0500 Systolic blood pressure 126 mm[Hg] Leann Bernard MD Work Phone: [facility] 10-22-2023 13:15-0500 Body height 188 cm Meet Jt COLEY Work Phone: [facility] 10-22-2023 13:15-0500 Body mass index (BMI) [Ratio] 44.32 kg/m2 Meet Jt COLEY Work Phone: [facility] 10-22-2023 13:15-0500 Body weight 156.58 kg Meet Jt COLEY Work Phone: [facility] 10-22-2023 13:15-0500 Diastolic blood pressure 78 mm[Hg] Meet Jt COLEY Work Phone: [facility] 10-22-2023 13:15-0500 Heart rate 68 /min Meet Jt COLEY Work Phone: [facility] 10-22-2023 13:15-0500 SaO2% (BldA) [Mass fraction] 93 % Meet Jt COLEY Work Phone: [facility] 10-22-2023 13:15-0500 Systolic blood pressure 130 mm[Hg] Meet Jt COLEY Work Phone: [facility] 06-28-2023 08:20-0400 Body height 188 cm Feliberto Banda MD Work Phone: [facility] 06-28-2023 08:20-0400 Body mass index (BMI) [Ratio] 43.78 kg/m2 Feliberto Banda MD Work Phone: [facility] 06-28-2023 08:20-0400 Body weight 154.68 kg Feliberto Banda MD Work Phone: [facility] 06-28-2023 08:20-0400 Diastolic blood pressure 80 mm[Hg] Feliberto Banda MD Work Phone: [facility] 06-28-2023 08:20-0400 Heart rate 62 /min Feliberto Banda MD Work Phone: [facility] 06-28-2023 08:20-0400 SaO2% (BldA) [Mass fraction] 99 % Feliberto Banda MD Work Phone: [facility] 06-28-2023 08:20-0400 Systolic blood pressure 136 mm[Hg] Feliberto Banda MD Work Phone: [facility] 06-30-2019 11:32-0400 Body Temperature 97.59 [degF] [place] 06-30-2019 11:32-0400 BP Diastolic 93 mm[Hg] Feliberto Banda [facility] [place] 06-30-2019 11:32-0400 BP Systolic 144 mm[Hg] Feliberto Banda [place], [place] 06-30-2019 11:32-0400 Pulse (Heart Rate) 75 /min Feliberto Banda [facility] [place] 06-30-2019 11:32-0400 Pulse Oximetry 97 % [place] 06-30-2019 11:32-0400 Respiratory Rate 20 /min [facility] [place] 06-27-2019 19:06-0400 BMI (Body Mass Index) 41.65 kg/m2 Feliberto [employer] [place], [place] 06-27-2019 19:06-0400 Body weight 147.15 kg Feliberto Banda [place], [place] 06-27-2019 19:06-0400 Height 188 cm Feliberto Banda [facility] , [place] Encounters Encounter Date Encounter Type Care Provider Facility Start: 05-21-2025 End: 05-21-2025 Office outpatient visit 25 minutes Fernando Garcia MD Work Phone: [facility] Comment on above: Graves disease (Prim simon Dx) Start: 05-21-2025 End: 05-21-2025 ambulatory FERNANDO GARCIA [facility] Start: 04-13-2025 End: 04-13-2025 ambulatory Paulina Tinsley HYDROCHLORIC ACID OPERATOR Facility:[facility] [place] Start: 02-02-2025 End: 02-02-2025 Telephone encounter Feliberto Banda MD Work Phone: [facility] Comment on above: Advice Only Start: 12-21-2024 End: 12-21-2024 Telephone encounter Shannon Aguila HISTOLOGIC AIDE - HVAC ENGINEER Work Phone: [facility] Comment on above: Labs Only Start: 12-12-2024 End: 12-12-2024 ambulatory Curry Banda Facility:[facility] Start: 12-08-2024 End: 12-08-2024 Office outpatient visit 25 minutes Jeanette Dixon HISTOLOGIC AIDE - HVAC ENGINEER Work Phone: [facility] Comment on above: Obstructive sleep ap jyoti (Primary Dx); Paroxysmal atrial fibrillation (HCC); Typical atrial flutter (HCC) Start: 12-08-2024 End: 12-08-2024 ambulatory JEANETTE DESTINY [facility] Start: 11-06-2024 End: 11-06-2024 Telephone encounter Ezra Gerber MD Work Phone: [facility] [place] Start: 11-03-2024 End: 11-03-2024 ambulatory JEANETTE DESTINY [facility] Start: 11-03-2024 End: 11-03-2024 Subsequent hospital visit by physician Jeanette Dixon HISTOLOGIC AIDE - HVAC ENGINEER Work Phone: [facility] [address] [facility] Comment on above: Other chest pain Typical atrial flutt er (HCC) Start: 09-14-2024 End: 09-14-2024 Orders Only Jeanette Destiny HISTOLOGIC AIDE - HVAC ENGINEER Work Phone: [facility] [place] Comment on above: Other chest pain (Pr imary Dx) Start: 09-12-2024 End: 09-14-2024 Telephone encounter Meet Олег Gerber MD Work Phone: [facility] Comment on above: Other (Scheduling/) Start: 08-04-2024 End: 08-04-2024 [facility] Facility:[facility] Start: 07-08-2024 End: 07-08-2024 [facility] Facility:[facility] Start: 06-27-2024 End: 06-27-2024 Refill Leann Bernard MD Work Phone: [facility] Comment on above: Graves disease (Prim simon Dx) Start: 06-23-2024 End: 06-23-2024 [facility] Facility:[facility] Start: 06-08-2024 End: 06-15-2024 Telephone encounter Leann Bernard MD Work Phone: [facility] Comment on above: Request For Order(s) Start: 05-16-2024 End: 05-16-2024 Office outpatient visit 15 minutes Leann Bernard MD Work Phone: [facility] Comment on above: Graves disease (Prim simon Dx) Start: 03-16-2024 Refill Jeanette Woods formerly [facility] HISTOLOGIC AIDE - HVAC ENGINEER Work Phone: [facility] Start: 03-08-2024 Telephone encounter Meet Олег banda MD Work Phone: [facility] Comment on above: Cancelled Appointmen t Start: 03-03-2024 End: 03-03-2024 Office outpatient visit 25 minutes Meet Олег Gerber MD Work Phone: [facility] Comment on above: Paroxysmal atrial fi brillation (HCC) (Primary Dx); Typical atrial flutter (HCC) Start: 12-20-2023 End: 12-20-2023 Office outpatient visit 25 minutes Jeanette Dixon HISTOLOGIC AIDE - HVAC ENGINEER Work Phone: [facility] Comment on above: Paroxysmal atrial fi brillation (HCC) (Primary Dx); Typical atrial flutter (HCC) Start: 12-10-2023 Telephone encounter Meet Олег banda MD Work Phone: [facility] Comment on above: Med Management (Eliq uis ) Start: 12-02-2023 End: 12-02-2023 Subsequent hospital visit by physician Meet Олег Gerber MD Work Phone: [facility] Comment on above: Paroxysmal atrial fi brillation (HCC); Typical atrial flutter (HCC) Start: 11-29-2023 Refill Meet Олег Pinto Work Phone: [facility] Start: 11-19-2023 End: 11-19-2023 Office outpatient visit 15 minutes Jeanette Dixon HISTOLOGIC AIDE - HVAC ENGINEER Work Phone: [facility] Comment on above: Paroxysmal atrial fi brillation (HCC) (Primary Dx); Typical atrial flutter (HCC) Start: 11-19-2023 ambulatory Jeanette Woods lyndagunjan HISTOLOGIC AIDE - HVAC ENGINEER Work Phone: [facility] Start: 11-17-2023 End: 11-17-2023 ambulatory [facility] Work Phone: Start: 11-17-2023 End: 11-17-2023 Patient encounter procedure [facility] Work Phone: Start: 10-28-2023 End: 10-28-2023 Office outpatient visit 15 minutes Leann Bernard MD Work Phone: [facility] Comment on above: Graves disease Start: 10-22-2023 End: 10-22-2023 Office outpatient visit 40 minutes Meet Олег Gerber MD Work Phone: [facility] Comment on above: Paroxysmal atrial fi brillation (HCC) (Primary Dx); Typical atrial flutter (HCC) Start: 09-29-2023 Telephone encounter Leann Bernard MD Work Phone: [facility] Comment on above: thyroid lab results Start: 09-27-2023 Telephone encounter Leann Bernard MD Work Phone: [facility] Comment on above: thy stim immuno resu lt 09/24/23 Start: 09-24-2023 End: 09-24-2023 ambulatory [facility] Work Phone: Start: 09-24-2023 End: 09-24-2023 Patient encounter procedure [facility] Work Phone: Start: 09-20-2023 Telephone encounter Feliberto Banda MD Work Phone: [facility] Comment on above: Lab orders Start: 09-15-2023 Refill Feliberto leslie MD Work Phone: [facility] Start: 06-28-2023 End: 06-28-2023 Office outpatient visit 15 minutes Feliberto Banda MD Work Phone: [facility] Comment on above: Paroxysmal atrial fi brillation (CMS/HCC) (HCC) Start: 06-19-2023 Refill Jeanette Woods ugh HISTOLOGIC AIDE - HVAC ENGINEER Work Phone: [facility] Start: 05-24-2023 End: 05-24-2023 ambulatory [facility] Work Phone: Start: 05-24-2023 End: 05-24-2023 Patient encounter procedure [facility] Work Phone: Start: 11-25-2022 Telephone encounter Leann Bernard MD Work Phone: [facility] Comment on above: Med Refill Start: 07-22-2022 End: 07-22-2022 ambulatory [facility] Work Phone: Start: 07-22-2022 End: 07-22-2022 Patient encounter procedure [facility] Start: 08-30-2019 End: 08-30-2019 Subsequent hospital visit by physician Mallorie Ambrosio Work Phone: [facility] Comment on above: Non-ischemic cardiom yopathy (HCC) Start: 06-27-2019 End: 06-30-2019 Evaluation and management of inpatient Feliberto Banda Work Phone: [facility] Procedures Date Procedure Procedure Detail Performing Clinician Start: 12-12-2024 Thyrotropin [Units/volume] in Serum or Plasma hSannon CruzKinney HISTOLOGIC AIDE - HVAC ENGINEER Work Phone: Start: 12-08-2024 Ecg routine ecg w/least 12 lds trcg only w/o i&r Meet Олег Gerber MD Work Phone: Start: 11-03-2024 TTE w or w/o contr, cont ECG Jeanette land HISTOLOGIC AIDE - HVAC ENGINEER Work Phone: Start: 03-03-2024 Ecg routine ecg w/least 12 lds trcg only w/o i&r Meet Олег Gerber MD Work Phone: Start: 12-20-2023 Ecg routine ecg w/least 12 lds trcg only w/o i&r Meet Олег Gerber MD Work Phone: Start: 12-02-2023 Ecg routine ecg w/least 12 lds trcg only w/o i&r Jeanette Dixon HISTOLOGIC AIDE - HVAC ENGINEER Work Phone: Start: 12-02-2023 Electrophysiology study Jeanette madrid HISTOLOGIC AIDE - HVAC ENGINEER Work Phone: Start: 12-02-2023 End: 12-02-2023 POCT ACT Meet Олег Gerber MD Work Phone: Start: 12-02-2023 Ecg routine ecg w/least 12 lds trcg only w/o i&r Jeanette Dixon HISTOLOGIC AIDE - HVAC ENGINEER Work Phone: Start: 11-26-2023 Lipid 1996 panel - Serum or Plasma Meet Jt COLEY Work Phone: Start: 11-17-2023 Thyrotropin [Units/volume] in Serum or Plasma Meet Jt COLEY Work Phone: Start: 10-22-2023 Ecg routine ecg w/least 12 lds trcg only w/o i&r Meet Олег Gerber MD Work Phone: Start: 06-28-2023 Ecg routine ecg w/least 12 lds trcg only w/o i&r Feliberto Banda MD Work Phone: Start: 05-24-2023 Thyrotropin [Units/volume] in Serum or Plasma Feliberto Banda MD Work Phone: Start: 08-30-2019 Echo tthrc r-t 2d w/wom-mode compl spec&colr d Mallorie O'Shell Work Phone: Start: 06-30-2019 Assay of magnesium Chari N Magoolaghan Work Phone: Start: 06-30-2019 Basic metabolic panel calcium total Chari N Magoolaghan Work Phone: Start: 06-29-2019 Ecg routine ecg w/least 12 lds w/i&r Feliberto Banda Work Phone: Start: 06-29-2019 Echo transesophag r-t 2d w/prb img acquisj i&r Feliberto Banda Work Phone: Start: 06-29-2019 Ecg routine ecg w/least 12 lds w/i&r Chari N Magoolaghan Work Phone: Start: 06-29-2019 EP NURSE PROCEDURE REPORT 3m Scanning Start: 06-29-2019 Ecg routine ecg w/least 12 lds w/i&r Chari N Magoolaghan Work Phone: Start: 06-29-2019 Assay of magnesium Chari N Magoolaghan Work Phone: Start: 06-29-2019 Basic metabolic panel calcium total Chari N Magoolaghan Work Phone: Start: 06-28-2019 Ecg routine ecg w/least 12 lds w/i&r Chari Santos Work Phone: Start: 06-28-2019 Ecg routine ecg w/least 12 lds w/i&r Chari Santos Work Phone: Start: 06-28-2019 Assay of magnesium Chari Santos Work Phone: Start: 06-28-2019 Basic metabolic panel calcium total Chari N Tom Work Phone: Start: 06-27-2019 Ecg routine ecg w/least 12 lds w/i&r Chari Santos Work Phone: Start: 06-27-2019 Ecg routine ecg w/least 12 lds w/i&r Chari Santos Work Phone: Start: 06-27-2019 Assay of magnesium Chari Santos Work Phone: Start: 06-27-2019 Assay of thyroid stimulating hormone tsh Chari Santos Work Phone: Start: 06-27-2019 Basic metabolic panel calcium total Chari Santos Work Phone: Start: 06-27-2019 Blood count complete automated Chari Santos Work Phone: Start: 06-27-2019 Thyrotropin [Units/volume] in Serum or Plasma Leann Bernard MD Work Phone: Plan of Treatment Date Care Activity Detail Author Start: 2042 RSV Immunization for Adults (1 - 1-dose 75+ series) RSV Immunization for Adults (1 - 1-dose 75+ series) [facility] Start: 11-26-2028 Lipid panel Lipid Panel [facility] Start: 2027 RSV Immunization aged 60 or older (1 - 1-dose 60+ series) RSV Immunization aged 60 or older (1 - 1-dose 60+ series) [facility] Start: 12-24-2025 End: 12-24-2025 Patient encounter procedure 12/24/2025 8:40 AM EST Office Visit [facility] [address] [place] [address] Fernando Garcia MD [address] [place] [address] [facility] Start: 12-12-2025 Thyroid stimulating hormone measurement TSH Level [facility] Start: 07-23-2025 Influenza vaccination Influenza Vaccine (Season Ended) [facility] Start: 07-13-2025 End: 07-13-2025 Patient encounter procedure 07/13/2025 3:15 PM EDT Office Visit [facility] [address] [place] [id number] Ezra Gerber MD [address] [place] [address] [facility] Start: 05-21-2025 End: 05-21-2025 Patient encounter procedure [facility] Start: 05-21-2025 End: 05-21-2026 Hepatic function 2000 panel - Serum or Plasma Hepatic function panel Lab Routine Graves disease Expected: 05/21/2025 (Approximate), Expires: 05/21/2026 [facility] Comment on above: Expected: 05/21/2025 (Approximate), Expi res: 05/21/2026 Start: 05-21-2025 End: 05-21-2026 Thyrotropin [Units/volume] in Serum or Plasma TSH Lab Routine Graves disease Expected: 05/21/2025 (Approximate), Expires: 05/21/2026 [facility] Work Phone: Comment on above: Expected: 05/21/2025 (Approximate), Expi res: 05/21/2026 Start: 05-21-2025 End: 05-21-2026 Thyroxine (T4) free [Mass/volume] in Serum or Plasma T4, free Lab Routine Graves disease Expected: 05/21/2025 (Approximate), Expires: 05/21/2026 [facility] Comment on above: Expected: 05/21/2025 (Approximate), Expi res: 05/21/2026 Start: 05-21-2025 End: 05-21-2026 Triiodothyronine (T3) Free [Mass/volume] in Serum or Plasma T3, free Lab Routine Graves disease Expected: 05/21/2025 (Approximate), Expires: 05/21/2026 [facility] Comment on above: Expected: 05/21/2025 (Approximate), Expi res: 05/21/2026 Start: 12-08-2024 End: 12-08-2024 Patient encounter procedure 12/08/2024 3:30 PM EST Office Visit [facility] [place] [address] [place] [id number] Jeanette Dixon APRN - HVAC ENGINEER [address] [address] [facility] Start: 11-17-2024 Thyroid stimulating hormone measurement TSH Level [facility] Start: 09-14-2024 End: 09-14-2026 Cardiac holter monitor (8- 15 days) Cardiac holter monitor (8- 15 days) [facility] Routine Typical atrial flutter (HCC) Expected: 09/14/2024, Expires: 09/14/2026 [facility] Work Phone: Comment on above: Expected: 09/14/2024, Expires: Start: 09-14-2024 End: 09-14-2026 Stress echocardiogram (TTE) exercise with contrast, bubble, strain, and 3D PRN Stress echocardiogram (TTE) exercise with contrast, bubble, strain, and 3D PRN CV Stress Echocardiography Routine Other chest pain Expected: 09/14/2024 (Approximate), Expires: 09/14/2026 [facility] Work Phone: Comment on above: Expected: 09/14/2024 (Approximate), Expi res: 09/14/2026 Start: 07-23-2024 COVID-19 Vaccine () COVID-19 Vaccine () [facility] Start: 07-23-2024 Influenza vaccination [facility] Start: 05-24-2024 Thyroid stimulating hormone measurement TSH Level [facility] Start: 05-16-2024 End: 05-16-2024 Patient encounter procedure [facility] Start: 05-16-2024 End: 05-16-2025 Thyrotropin [Units/volume] in Serum or Plasma TSH Lab Routine Graves disease Expected: 05/16/2024 (Approximate), Expires: 05/16/2025 [facility] Work Phone: Comment on above: Expected: 05/16/2024 (Approximate), Expi res: 05/16/2025 Start: 05-16-2024 End: 05-16-2025 Thyroxine (T4) free [Mass/volume] in Serum or Plasma T4, free Lab Routine Graves disease Expected: 05/16/2024 (Approximate), Expires: 05/16/2025 [facility] Comment on above: Expected: 05/16/2024 (Approximate), Expi res: 05/16/2025 Start: 05-16-2024 End: 05-16-2025 Triiodothyronine (T3) Free [Mass/volume] in Serum or Plasma T3, free Lab Routine Graves disease Expected: 05/16/2024 (Approximate), Expires: 05/16/2025 [facility] Comment on above: Expected: 05/16/2024 (Approximate), Expi res: 05/16/2025 Start: 04-07-2024 End: 04-07-2024 Patient encounter procedure [facility] [address] [facility] Start: 03-03-2024 End: 03-03-2026 Cardiac holter monitor (8- 15 days) Cardiac holter monitor (8- 15 days) CV Cardiac Services Routine Typical atrial flutter (HCC) Expected: 03/03/2024, Expires: [facility] Comment on above: Expected: 03/03/2024, Expires: Start: 03-03-2024 End: 03-03-2026 Stress echocardiogram (TTE) exercise with contrast, bubble, strain, and 3D PRN Stress echocardiogram (TTE) exercise with contrast, bubble, strain, and 3D PRN CV Stress Echocardiography Routine Typical atrial flutter (HCC) Expected: 03/03/2024 (Approximate), Expires: 03/03/2026 [facility] Comment on above: Expected: 03/03/2024 (Approximate), Expi res: 03/03/2026 Start: 02-18-2024 End: 02-18-2024 Patient encounter procedure 02/18/2024 3:15 PM EDT Office Visit [facility] [address] [place] [phone] Ezra Gerber MD [address] [place] [address] [facility] Start: 01-05-2024 End: 01-05-2024 Patient encounter procedure 01/05/2024 10:30 AM EST Office Visit [facility] [address] [place] [address] Jeanette Dixon, HISTOLOGIC AIDE - HVAC ENGINEER [address] [place] [address] [facility] Start: 12-20-2023 End: 12-20-2023 Patient encounter procedure [facility] Start: 12-02-2023 Lipid screen Lipid screen [place], [place] Start: 12-02-2023 End: 12-02-2023 Admission to same day surgery center [facility] Comment on above: Ablation a-fib paroxysmal [29204 (CPT )] Start: 12-02-2023 Subsequent hospital visit by physician [facility] Comment on above: Paroxysmal atrial fibrillation (HCC); Typical atrial flutter (HCC) Start: 11-19-2023 End: 11-19-2023 Telemedicine consultation with patient 11/19/2023 2:30 PM EST Telemedicine [facility] [address] [place] [address] Jeanette Dixon, HISTOLOGIC AIDE - HVAC ENGINEER [address] [place], [place] [phone] [facility] Start: 10-28-2023 End: 10-28-2023 Patient encounter procedure 10/28/2023 3:40 PM EST Office Visit [facility] [address] [facility] [address] [place] [phone] Leann Bernard MD [address] [place] [address] [place] [address] [facility] Start: 10-28-2023 End: 10-28-2024 Thyrotropin [Units/volume] in Serum or Plasma TSH Lab Routine Graves disease Expected: 10/28/2023 (Approximate), Expires: 10/28/2024 [facility] Work Phone: Comment on above: Expected: 10/28/2023 (Approximate), Expi res: 10/28/2024 Start: 10-28-2023 End: 10-28-2024 Thyroxine (T4) free [Mass/volume] in Serum or Plasma T4, free Lab Routine Graves disease Expected: 10/28/2023 (Approximate), Expires: 10/28/2024 [facility] Comment on above: Expected: 10/28/2023 (Approximate), Expi res: 10/28/2024 Start: 10-28-2023 End: 10-28-2024 Triiodothyronine (T3) Free [Mass/volume] in Serum or Plasma T3, free Lab Routine Graves disease Expected: 10/28/2023 (Approximate), Expires: 10/28/2024 [facility] Comment on above: Expected: 10/28/2023 (Approximate), Expi res: 10/28/2024 Start: 10-22-2023 End: 10-22-2024 Basic metabolic 1998 panel - Serum or Plasma Basic metabolic panel Lab Routine Paroxysmal atrial fibrillation (HCC) Expected: 10/22/2023 (Approximate), Expires: 10/22/2024 [facility] Comment on above: Expected: 10/22/2023 (Approximate), Expi res: 10/22/2024 Start: 10-22-2023 End: 10-22-2024 CBC panel - Blood by Automated count CBC Lab Routine Paroxysmal atrial fibrillation (HCC) Expected: 10/22/2023 (Approximate), Expires: 10/22/2024 [facility] Work Phone: Comment on above: Expected: 10/22/2023 (Approximate), Expi res: 10/22/2024 Start: 10-22-2023 End: 10-22-2023 Patient encounter procedure 10/22/2023 1:15 PM EST Office Visit [facility] [address] [place] [phone] Ezra Gerber MD [address] [place], [place] [phone] [facility] Start: 08-24-2023 End: 08-24-2023 Patient encounter procedure 08/24/2023 3:30 PM EDT Office Visit [facility] [address] [place] [address] Feliberto Banda MD [address] [place] [phone] [facility] Start: 07-23-2023 COVID-19 Vaccine ( season) COVID-19 Vaccine ( season) [facility] Start: 07-23-2023 Influenza vaccination Influenza Vaccine (#1) [facility] Start: 04-13-2023 End: 04-13-2023 Patient encounter procedure 04/13/2023 Office Visit Endocrinology Leann Bernard MD [address] [address] [facility] Start: 02-16-2023 End: 02-16-2023 Patient encounter procedure 02/16/2023 Office Visit Cardiology Feliberto Banda MD [address] [place], [place] [phone] [facility] Start: 07-23-2022 Influenza vaccination Influenza Vaccine (#1) [facility] Start: 04-10-2021 COVID-19 Vaccine (2 - Booster for Moderna series) COVID-19 Vaccine (2 - Booster for Moderna series) [facility] Start: 04-10-2021 COVID-19 Vaccine (2 - Moderna series) COVID-19 Vaccine (2 - Moderna series) [facility] Start: 03-13-2021 COVID-19 Vaccine (2 - Moderna series) COVID-19 Vaccine (2 - Moderna series) [facility] Start: 06-27-2020 Thyroid stimulating hormone measurement TSH Level [facility] Start: 10-23-2019 End: 10-23-2019 Office Visit 10/23/2019 Office Visit Cardiology Feliberto Banda MD [address] [place] [address] [phone] [facility] Start: 07-23-2019 Influenza vaccination Flu vaccine (#1) [place], [place] Start: 07-17-2019 End: 07-17-2019 Office Visit 07/17/2019 Office Visit Cardiology Mallorie Ambrosio APRN - [place] [address] [place] [address] [phone] [facility] Start: 2017 Colon cancer screen colonoscopy Colon cancer screen colonoscopy [place], [place] Start: 2017 Pneumococcal Vaccine: 50+ Years (1 of 1 - PCV) Pneumococcal Vaccine: 50+ Years (1 of 1 - PCV) [facility] Start: 2017 Shingles Vaccine (1 of 2) Shingles Vaccine (1 of 2) [place], [place] Start: 2017 Zoster Vaccines (1 of 2) Zoster Vaccines (1 of 2) [facility] Start: 10-10-2013 DTaP/Tdap/Td Vaccines (1 - Tdap) DTaP/Tdap/Td Vaccines (1 - Tdap) [facility] Start: 1986 DTaP/Tdap/Td vaccine (1 - Tdap) DTaP/Tdap/Td vaccine (1 - Tdap) [place], [place] Start: 1986 DTaP/Tdap/Td Vaccines (1 - Tdap) DTaP/Tdap/Td Vaccines (1 - Tdap) [facility] Start: 1986 Hepatitis B Vaccines (1 of 3 - 19+ 3-dose series) Hepatitis B Vaccines (1 of 3 - 19+ 3-dose series) [facility] Start: 1985 Diabetes mellitus screening Diabetes Screening [facility] Start: 1985 Hepatitis C screening Hepatitis C Screening [facility] Start: 1982 HIV screen HIV screen [facility] [place] Start: 1979 Depression Screening Depression Screening [facility] Start: 1968 MMR Vaccines (1 of 1 - Standard series) MMR Vaccines (1 of 1 - Standard series) [facility] Start: 1967 Hepatitis B Vaccines (1 of 3 - 3-dose series) Hepatitis B Vaccines (1 of 3 - 3-dose series) [facility] Start: 1967 HIV screening HIV Screening [facility] Start: 1967 Lipid panel Lipid Panel [facility] Start: 1967 Screening for malignant neoplasm of colon [facility] End: 07-01-2019 Basic metabolic 2000 panel Basic Metabolic Panel Lab Routine Daily for 4 Occurrences starting 06/28/2019 until 07/01/2019, 3 completed [facility] [place] Comment on above: Daily for 4 Occurrences starting 019 until 07/01/2019, 3 completed End: 11-03-2024 Cardiac holter monitor (8- 15 days) [facility] Work Phone: Comment on above: Once for 1 Occurrences starting 11/03/20 until 11/03/2024 End: 06-28-2019 Cardioversion Defibrillation Cardioversion Defibrillation Cardiac Cath Routine One Time for 1 Occurrences starting 06/28/2019 until 06/28/2019 [facility] Comment on above: One Time for 1 Occurrences starting 05/2019 until 06/28/2019 End: 06-28-2019 Diagnostic Cardiac Senior [employer] Specialist Procedure Diagnostic Cardiac Senior [employer] Specialist Procedure Cardiac Cath Routine One Time for 1 Occurrences starting 06/28/2019 until 06/28/2019 [facility] Comment on above: One Time for 1 Occurrences starting 05/2019 until 06/28/2019 ECG 12 lead ECG 12 lead CV E CG Routine 12/02/2023 7:41 AM EST [facility]: ECG 12 lead ECG 12 lead CV E CG Routine 12/02/2023 11:20 AM EST [facility] ECG 12 lead ECG 12 lead CV E CG Routine Typical atrial flutter (HCC) 03/03/2024 3:21 PM EDT [facility] ECG 12 lead - CLINIC PERFORMED ECG 12 lead - CLINIC PERFORMED CV ECG Routine Paroxysmal atrial fibrillation (CMS/HCC) (HCC) 06/28/2023 8:20 AM EDT [employer] Work Phone: ECG 12 lead - CLINIC PERFORMED ECG 12 lead - CLINIC PERFORMED CV ECG Routine Paroxysmal atrial fibrillation (HCC) 10/22/2023 1:06 PM EST [facility] ECG 12 lead - CLINIC PERFORMED ECG 12 lead - CLINIC PERFORMED CV ECG Routine Paroxysmal atrial fibrillation (HCC) 12/20/2023 12:54 PM [employer] Work Phone: ECG 12 lead - CLINIC PERFORMED ECG 12 lead - CLINIC PERFORMED CV ECG Routine Paroxysmal atrial fibrillation (HCC) 12/08/2024 2:49 PM [employer] Work Phone: EKG 12 Lead [employer] [place] Comment on above: Every 12hr until discontinued starting 0 06/27/2019, 6 completed End: 06-29-2019 ELECTROPHYSIOLOGY DEVICE ELECTROPHYSIOLOGY DEVICE Echocardiography Routine One Time for 1 Occurrences starting 06/29/2019 until 06/29/2019 [employer] [place] [facility] Comment on above: One Time for 1 Occurrences starting 06/2019 until 06/29/2019 Ephys evl trnsptl tx atrial fib isolat pulm vein ABLATION A-FIB PAROXYSMAL W COMPLETE EP STUDY Paroxysmal atrial fibrillation (HCC) Typical atrial flutter (HCC) [facility] Initiate Oxygen Ther apy Protocol Initiate Oxygen Therapy Protocol Respiratory Care Routine Daily until discontinued starting 06/30/2019 [employer] Comment on above: Daily until discontinued starting 2018 End: 07-01-2019 Magnesium [Mass/Vol] Magnesium Lab Routine Daily for 4 Occurrences starting 06/28/2019 until 07/01/2019, 3 completed [employer] [place] [facility] Comment on above: Daily for 4 Occurrences starting 019 until 07/01/2019, 3 completed Immunizations Immunization Date Immunization Notes Care Provider Fa [facility] 08-17-2020 influenza virus vaccine, unspecified formulation Jeanette Dixon HISTOLOGIC AIDE - HVAC ENGINEER Work Phone: [facility] 09-12-2016 influenza, injectabl e, quadrivalent, contains preservative Jeanette Destiny HISTOLOGIC AIDE - HVAC ENGINEER Work Phone: [facility] 08-24-2015 influenza, injectabl e, quadrivalent, contains preservative Jeanette Destiny HISTOLOGIC AIDE - HVAC ENGINEER Work Phone: [facility] 09-20-2014 influenza, seasonal, injectable Jeanette Destiny HISTOLOGIC AIDE - HVAC ENGINEER Work Phone: [facility] 10-09-2013 tetanus and diphther ia toxoids, adsorbed, preservative free, for adult use (2 Lf of tetanus toxoid and 2 Lf of diphtheria toxoid) [facility] 09-18-2013 Influenza virus vaccine W [facility] 09-16-2013 influenza virus vaccine, unspecified formulation Jeanette Destiny HISTOLOGIC AIDE - HVAC ENGINEER Work Phone: [facility] 12-08-2012 influenza virus vaccine, unspecified formulation Jeanette Destiny HISTOLOGIC AIDE - HVAC ENGINEER Work Phone: [facility] 09-12-2011 influenza virus vaccine, unspecified formulation Jeanette Destiny HISTOLOGIC AIDE - HVAC ENGINEER Work Phone: [facility] 09-05-2009 influenza virus vaccine, unspecified formulation Jeanette Destiny HISTOLOGIC AIDE - HVAC ENGINEER Work Phone: [facility] 09-28-2008 influenza virus vaccine, unspecified formulation Jeanette Destiny HISTOLOGIC AIDE - HVAC ENGINEER Work Phone: [facility] 09-21-2007 influenza virus vaccine, unspecified formulation Jeanette Destiny HISTOLOGIC AIDE - HVAC ENGINEER Work Phone: [facility] Payers Date Payer Category Payer Self-pay [id number] 2022 Commercial Managed C are - [facility] Member Subscriber Plan / Payer (Effective 2022-Present) Name: Jorgito Fraga Relation to Subscriber: Self Name: Jorgito Fraga Payer ID: Not on file Type: Commercial Address: [address] [place] [id number] 2022 Unknown [id number] 2021 Unknown [id number] 2018 Unknown [employer] M [employer] [address] xxxxxxxxxxxx 2018-Present [phone] [address] [place] [address] xxxxxxxxxxxx [id number] 2016 Unknown [employer] [id number] Unknown [facility] [place] [address] [id number] Unknown [id number] Unknown [id number] Unknown [id number] Unknown [id number] Unknown [id number] Social History Date Type Detail Facility Start: 05-02-2019 End: 07-17-2019 Tobacco smoking status NHIS Never smoker [place], [place] History of tobacco use Chews Tobacco [place], [place] Start: 05-02-2019 End: 05-21-2025 Alcohol intake Not Currently [facility] Start: 1965 Sex Assigned At Not on file [facility] [place], [place] Start: 12-30-2021 End: 02-17-2023 Tobacco smoking status WIIS Unknown if ever smoked [facility] Start: 03-06-2019 Chew [facility] Start: 1965 Sex Assigned At Male W [facility] Start: 06-28-2023 [facility] History of tobacco use Current smoker [facility] Start: 04-13-2023 End: 05-21-2025 Alcohol intake Ex-drinker (finding) [facility] Start: 04-13-2023 End: 05-21-2025 History of Social function [facility] Start: 06-28-2023 Tobacco use and exposure User of smokeless tobacco [facility] History of tobacco use Snuff User [facility] Start: 10-25-2022 End: 06-28-2023 Exposure to SARS-CoV-2 (event) Not sure [facility] Start: 10-09-2013 None [facility] Start: 10-09-2013 Spouse/ Signif icant Other [facility] Within the last year , have you been afraid of your partner or ex-partner? No [facility] Physically Abused Not on file [facility] Start: 06-22-2022 Sex Male (finding) [facility] Medical Equipment Procedure Code Equipment Code Equipment Origin al Text Equipment Identifier Dates Device Closure [employer] - [id number] Start: 12-02-2023 Device Closure [employer] - [id number] Start: 12-02-2023 Device Closure [employer] - [id number] Start: 12-02-2023 Clinical Notes 11-25-2022 to 05-21-2025 Fernando Garcia MD - 05/21/2025 3:00 PM EDTTelephone Encounter - Kayleigh Calhoun RN - 02/08/2025 3:42 PM EDTTelephone Encounter - Kayleigh Calhoun RN - 02/08/2025 3:42 PM EDTDischarge Instructions Note Date & Type Note Facility 05-21-2025 History of Presen t illness Narrative . Visit type: Established patient Reason for Visit: Graves' Disease and Follow-up Assessment and Plan 1. Graves disease - TSH - T4, free - T3, free - Hepatic function panel No follow-ups on file. Discussed with patient Nl thyroid function Nl thyroid structure Discussed with patient potential side effects and monitoring necessary of antithyroid medication Discussed with patient signs and symptoms of hyperthyroidism and hypothyroidism and to call if develops these parrish Check tft'sd Now Call or my chart for result See back in 6 mos Subjective HPI Seeing for graves disease Taking methimazole 5 mg 1/2 daily Has metoprolol for tachycardia Has failed remission from graves with cessation of atms Has noted no changes in his eyes Heat intolerance Rare palpitations Occ tremor No trouble swallowing except more dry foods Has carmen and uses cpap Review of Systems Constitutional: Negative for appetite change, fatigue (varies) and unexpected weight change. Respiratory: Positive for apnea (carmen). Negative for shortness of breath. Cardiovascular: Positive for palpitations (intermittent, rare). Gastrointestinal: Negative for constipation, diarrhea, nausea and vomiting. Endocrine: Positive for heat intolerance. Neurological: Negative for tremors. Psychiatric/Behavioral: Positive for sleep disturbance. Allergies[1] Current Medications[2] Medical History[3] Social History Tobacco Use Smoking status: Former Smokeless tobacco: Current Types: Snuff Substance Use Topics Alcohol use: Not Currently Surgical History[4] Family History[5] Objective BP 132/85 (BP Location: Right arm, Patient Position: Sitting, BP Cuff Size: Large adult) Pulse 66 Ht 6' 2 (1.88 m) Wt (!) 336 lb 12.8 oz (153 kg) BMI 43.24 kg/m Physical Exam Vitals and nursing note reviewed. Constitutional: Appearance: Normal appearance. He is obese. HENT: Head: Normocephalic and atraumatic. Eyes: Extraocular Movements: Extraocular movements intact. Comments: No proptosis or exophthalmos Neck: Comments: Thyroid 20-25 grams No nodules Cardiovascular: Rate and Rhythm: Normal rate and regular rhythm. Pulmonary: Effort: Pulmonary effort is normal. Musculoskeletal: General: No swelling. Normal range of motion. Cervical back: Normal range of motion. Skin: General: Skin is warm and dry. Neurological: General: No focal deficit present. Mental Status: He is alert and oriented to person, place, and time. Comments: Mild fine extremity tremors Psychiatric: Mood and Affect: Mood normal. Behavior: Behavior normal. Data Reviewed and Summarized Labs: THYROID STIMULATING HORMONE Date Value Ref Range Status 12/12/2024 2.89 0.35 - 4.94 uIU/mL Final Auto WBC Date Value Ref Range Status 11/17/2023 6.9 3.6 - 10.7 10*3/uL Final Hemoglobin Date Value Ref Range Status 11/17/2023 16.0 13.0 - 18.0 g/dL Final Hematocrit Date Value Ref Range Status 11/17/2023 46.6 40.0 - 52.0 % Final Platelets Date Value Ref Range Status 11/17/2023 258 140 - 440 10*3/uL Final MCV Date Value Ref Range Status 11/17/2023 85.5 80.0 - 98.0 fL Final SODIUM Date Value Ref Range Status 12/21/2024 136 136 - 145 mmol/L Final POTASSIUM Date Value Ref Range Status 12/21/2024 4.2 3.5 - 5.1 mmol/L Final CHLORIDE Date Value Ref Range Status 12/21/2024 105 98 - 107 mmol/L Final CARBON DIOXIDE Date Value Ref Range Status 12/21/2024 25 22 - 29 mmol/L Final UREA NITROGEN Date Value Ref Range Status 12/21/2024 10 9 - 23 mg/dL Final CREATININE Date Value Ref Range Status 12/21/2024 0.83 0.72 - 1.25 mg/dL Final 11/17/2023 0.86 0.66 - 1.25 mg/dL Final 07/29/2022 0.80 Final 12/26/2021 0.80 (A) Final 01/14/2021 0.74 Final 05/23/2020 0.74 0.52 - 1.25 mg/dL Final 01/05/2020 0.84 0.52 - 1.25 mg/dL Final GLUCOSE Date Value Ref Range Status 12/21/2024 95 74 - 100 mg/dL Final CALCIUM Date Value Ref Range Status 12/21/2024 9.0 8.4 - 10.2 mg/dL Final AST (SGOT) Date Value Ref Range Status 12/21/2024 15 <=34 U/L Final ALT Date Value Ref Range Status 12/21/2024 33 <=40 U/L Final TOTAL PROTEIN Date Value Ref Range Status 12/21/2024 12.1 (A) 6.4 - 8.3 g/dL Final BILIRUBIN, TOTAL Date Value Ref Range Status 12/21/2024 1.1 <=1.2 mg/dL Final ALKALINE PHOSPHATASE Date Value Ref Range Status 12/21/2024 58 40 - 150 U/L Final INR Date Value Ref Range Status 11/17/2023 1.1 0.9 - 1.1 Final CHOLESTEROL Date Value Ref Range Status 11/26/2023 145 <=200 mg/dL Final TRIGLYCERIDE Date Value Ref Range Status 11/26/2023 115 <=150 mg/dL Final HDL CHOLESTEROL Date Value Ref Range Status 11/26/2023 25 (A) 40 - 60 mg/dL Final Imaging/Testing: On this date, 05/21/2025 I have spent 35 minutes reviewing previous notes, test results and face to face with the patient discussing the diagnosis and importance of compliance with the treatment plan as well as documenting on the day of the visit. Fernando Garcia MD [1] No Known Allergies [2] Current Outpatient Medications: acetaminophen (Tylenol) 500 MG tablet, Take 500 mg by mouth as needed. Extra strength, Disp: , Rfl: alpha tocopherol (Vitamin E) 1000 units capsule, Take 1,000 Units by mouth in the morning., Disp: , Rfl: cholecalciferol (D3-5) 5,000 Units tablet, Take by mouth daily., Disp: , Rfl: coenzyme Q-10 100 MG capsule, Take 1 tablet by mouth in the morning., Disp: , Rfl: cyanocobalamin (Vitamin B-12) 1000 MCG tablet, Take 1,000 mcg by mouth in the morning., Disp: , Rfl: dofetilide (Tikosyn) 500 MCG capsule, Take 1 capsule (500 mcg) by mouth 2 times daily., Disp: 180 capsule, Rfl: 1 KRILL OIL PO, Take by mouth daily., Disp: , Rfl: magnesium oxide (Mag-Ox) 400 MG tablet, Take 400 mg by mouth See administration instructions. 2 pills once a day, Disp: , Rfl: methIMAzole (Tapazole) 5 MG tablet, Take 0.5 tablets (2.5 mg) by mouth every morning., Disp: 45 tablet, Rfl: 3 metoprolol tartrate (Lopressor) 25 MG tablet, Take 1 tablet (25 mg) by mouth 2 times daily., Disp: 60 tablet, Rfl: 5 naproxen (Naprosyn) 250 MG tablet, Take 250 mg by mouth if needed for mild pain (1-3)., Disp: , Rfl: omega-3 (Fish Oil) 1000 MG capsule, Take 1,000 mg by mouth in the morning., Disp: , Rfl: TURMERIC PO, Take by mouth daily., Disp: , Rfl: [3] Past Medical History: Diagnosis Date Atrial fibrillation (HCC) Heart murmur Hypothyroidism [4] Past Surgical History: Procedure Laterality Date ABLATION FOR ATRIAL FIBRILLATION (HISTORICAL) N/A 12/02/2023 CAPSULOTOMY, HAND 05/30/2008 12/19/18, 01/02/19, 04/05/19, 06/29/19 CARDIAC ELECTROPHYSIOLOGY PROCEDURE N/A 12/02/2023 Performed by Ezra Gerber MD at [facility] Cardiac Cath/EP Lab CARDIAC ELECTROPHYSIOLOGY PROCEDURE N/A 12/02/2023 Performed by Ezra Gerber MD at [facility] Cardiac Cath/EP Lab CARDIAC PROCEDURE 03/06/2019 TRANSESOPHAGEAL ECHOCARDIOGRAM 05/30/2008 [5] Family History Problem Relation Name Age of Onset Heart disease Maternal Grandmother No Known Problems Brother Pancreatic cancer Father Hypertension Father Arthritis Paternal Grandmother Cancer Maternal Grandfather Arthritis Father Cancer Mother's Sister Alcohol abuse Mother's Sister Diabetes type II Mother No Known Problems Sister Multiple sclerosis Father's Brother No Known Problems Father's Sister Heart disease Mother's Brother documented in this encounter [facility] 02-08-2025 Telephone encounter Note PC to patient's spouse and gave information, will follow up with PCP for other recommendations and will touch base with names of products if she finds any others [facility] 02-08-2025 Miscellaneous Notes PC to patient's spouse and gave information, will follow up with PCP for other recommendations and will touch base with names of products if she finds any others Pt's spouse lvm she received your vm but was able to get all of the information. Pt's spouse is asking for a call back Pt spouse calling to check status of pt taking restful sleep supplement Pt's spouse calling regarding restful sleep all natural sleep medication. Pt's spouse is asking if this will be ok for pt to take the medication documented in this encounter [facility] 02-08-2025 Telephone encounter Note Pt's spouse lvm she received your vm but was able to get all of the information. Pt's spouse is asking for a call back [facility] 02-08-2025 Telephone encounter Note Pt spouse calling to check status of pt taking restful sleep supplement [facility] 02-02-2025 Telephone encounter Note Pt's spouse calling regarding restful sleep all natural sleep medication. Pt's spouse is asking if this will be ok for pt to take the medication [facility] 12-22-2024 Telephone encounter Note Reviewed labs, will discuss at next visit [employer] [facility] Work Phone: 12-22-2024 Miscellaneous Notes Reviewed labs, will discuss at next visit Images from the original note were not included. documented in this encounter [facility] 12-21-2024 Telephone encounter Note Images from the original note were not included. [facility] 12-08-2024 History of Presen t illness Narrative Images from the original note were not included. [facility] - [address] [address] Dept: [phone] Dept Visit type: Established : 1965 Reason for Visit: Follow-up Assessment and Plan 1. Obstructive sleep apnea Assessment & Plan: Continue CPAP nightly. 2. Paroxysmal atrial fibrillation (HCC) Assessment & Plan: Last monitor showed a 14% AF burden. He is not too bothered by this and does not wish for another ablation at this time. His QTc is stable on Tikosyn to continue current dosing. He is in need of lab work. He is not on OAC due to a chadsvasc score of zero. He will call us if his burden increases and we can discuss redo ablation. Orders: - ECG 12 lead - CLINIC PERFORMED 3. Typical atrial flutter (HCC) Assessment & Plan: S/p CTI ablation with no recurrence. Follow up in about 6 months (around 06/07/2025) for Dr. Gerber. Alvin Fraga is a 59 y.o. male with a history of pAF/AFl with recurrence despite Tikosyn, s/p PVI + CTI ablation 11/2023, CARMEN on CPAP, who presents today for overdue 6 month follow up. Since his last visit, he underwent a stress test which showed no evidence of ischemia. He also wore a monitor for episodes of palpitations which showed a 14% AF burden (longest episode 5 hours), average HR when in AF 125 bpm. He states he is usually aware of his episodes of AF but they are not overly bothersome for him at this time and he is not interested in another ablation. He wears his CPAP nightly. Wants to lose weight and get under 300 lb. EKG today on my review shows sinus rhythm, 65 bpm, QTc: 416 ms. His chadsvasc score is zero. Review of Systems Constitutional: Negative for fatigue. HENT: Negative for nosebleeds. Respiratory: Negative for shortness of breath. Cardiovascular: Positive for palpitations. Negative for chest pain. Gastrointestinal: Negative for blood in stool. Genitourinary: Negative for hematuria. Neurological: Negative for dizziness, syncope and light-headedness. Hematological: Does not bruise/bleed easily. No Known Allergies Outpatient Medications Prior to Visit Medication Sig Dispense Refill alpha tocopherol (Vitamin E) 1000 units capsule Take 1,000 Units by mouth in the morning. cholecalciferol (D3-5) 5,000 Units tablet Take by mouth daily. coenzyme Q-10 100 MG capsule Take 1 tablet by mouth in the morning. cyanocobalamin (Vitamin B-12) 1000 MCG tablet Take 1,000 mcg by mouth in the morning. KRILL OIL PO Take by mouth daily. magnesium oxide (Mag-Ox) 400 MG tablet Take 400 mg by mouth See administration instructions. 2 pills once a day methIMAzole (Tapazole) 5 MG tablet Take 0.5 tablets (2.5 mg) by mouth every morning. 45 tablet 3 metoprolol tartrate (Lopressor) 25 MG tablet Take 1 tablet (25 mg) by mouth 2 times daily. (Patient taking differently: Take 25 mg by mouth 2 times daily as needed (afib episodes).) 60 tablet 5 naproxen (Naprosyn) 250 MG tablet Take 250 mg by mouth if needed for mild pain (1-3). omega-3 (Fish Oil) 1000 MG capsule Take 1,000 mg by mouth in the morning. TURMERIC PO Take by mouth daily. dofetilide (Tikosyn) 500 MCG capsule Take 1 capsule by mouth twice daily 180 capsule 0 acetaminophen (Tylenol) 500 MG tablet Take 500 mg by mouth as needed. Extra strength apixaban (Eliquis) 5 MG tablet Take 1 tablet (5 mg) by mouth 2 times daily. 60 tablet 0 No facility-administered medications prior to visit. Past Medical History: Diagnosis Date Atrial fibrillation (HCC) Heart murmur Hypothyroidism Social History Tobacco Use Smoking status: Former Smokeless tobacco: Current Types: Snuff Substance Use Topics Alcohol use: Not Currently Past Surgical History: Procedure Laterality Date ABLATION FOR ATRIAL FIBRILLATION (HISTORICAL) N/A 12/02/2023 CAPSULOTOMY, HAND 05/30/2008 12/19/18, 01/02/19, 04/05/19, 06/29/19 CARDIAC ELECTROPHYSIOLOGY PROCEDURE N/A 12/02/2023 Performed by Ezra Gerber MD at [facility] Cardiac Cath/EP Lab CARDIAC ELECTROPHYSIOLOGY PROCEDURE N/A 12/02/2023 Performed by Ezra Gerber MD at [facility] Cardiac Cath/EP Lab CARDIAC PROCEDURE 03/06/2019 TRANSESOPHAGEAL ECHOCARDIOGRAM 05/30/2008 Family History Problem Relation Name Age of Onset Heart disease Maternal Grandmother No Known Problems Brother Pancreatic cancer Father Hypertension Father Arthritis Paternal Grandmother Cancer Maternal Grandfather Arthritis Father Cancer Mother's Sister Alcohol abuse Mother's Sister Diabetes type II Mother No Known Problems Sister Multiple sclerosis Father's Brother No Known Problems Father's Sister Heart disease Mother's Brother Objective Vitals: 12/08/24 1445 BP: 120/72 BP Location: Left arm Patient Position: Sitting BP Cuff Size: Adult Pulse: 65 SpO2: 94% Weight: (!) 335 lb (152 kg) Height: 6' 2 (1.88 m) Physical Exam Vitals reviewed. Constitutional: General: He is not in acute distress. Appearance: Normal appearance. He is obese. HENT: Head: Normocephalic and atraumatic. Cardiovascular: Rate and Rhythm: Normal rate and regular rhythm. Heart sounds: Normal heart sounds. No murmur heard. No friction rub. No gallop. Pulmonary: Effort: Pulmonary effort is normal. Breath sounds: Normal breath sounds. No wheezing, rhonchi or rales. Skin: General: Skin is warm and dry. Neurological: Mental Status: He is alert and oriented to person, place, and time. Data Reviewed and Summarized EF BP Date Value Ref Range Status 11/03/2024 50 (A) 55 - 100 % Final Review of tests/labs done/ordered within my specialty: EKG in office: See HPI Echo 10/2024: Study Impression: Probably normal stress echocardiogram within the limits of this study. No clear echocardiographic evidence of ischemia. poor quality images post stress. Post-stress Echo: The post-stress echo showed no new wall motion abnormalities within the limits of this study. Left Ventricle: Left ventricle is dilated. Normal wall thickness. Low normal left ventricular systolic function. EF by 2D Simpsons Biplane is 50%. Normal wall motion. Right Ventricle: Right ventricle size is normal. Normal systolic function. Stress ECG: Arrhythmias during recovery: occasional PACs, occasional PVCs. Other arrhythmias noted during recovery: Runs of atrial tachycardia. Conclusion: The stress EKG is normal based on ischemic changes but the patient developed frequent atrial arrhythmias and runs of atrial tachycardia in recovery. Stress Test: A Demetri protocol stress test was performed. The patient reached stage 3 of the protocol after exercising for 6 min and 26 sec. The patient experienced no angina during the test. Blood pressure demonstrated a normal response and heart rate demonstrated a normal response to stress. The patient's heart rate recovery was normal. The patient reported no chest pain during the stress test. FRANCHESCA Beltran CNP documented in this encounter [facility] 12-08-2024 Evaluation + Plan note Associated Problem(s): Obstructive sleep apnea Continue CPAP nightly. [facility] 12-08-2024 Evaluation + Plan note Associated Problem(s): Typical atrial flutter (HCC) S/p CTI ablation with no recurrence. [facility] 12-08-2024 Evaluation + Plan note Associated Problem(s): Paroxysmal atrial fibrillation (HCC) Last monitor showed a 14% AF burden. He is not too bothered by this and does not wish for another ablation at this time. His QTc is stable on Tikosyn to continue current dosing. He is in need of lab work. He is not on OAC due to a chadsvasc score of zero. He will call us if his burden increases and we can discuss redo ablation. [facility] 12-08-2024 Miscellaneous Notes Associated Problem(s): Obstructive sleep apnea Continue CPAP nightly. Associated Problem(s): Typical atrial flutter (HCC) S/p CTI ablation with no recurrence. Associated Problem(s): Paroxysmal atrial fibrillation (HCC) Last monitor showed a 14% AF burden. He is not too bothered by this and does not wish for another ablation at this time. His QTc is stable on Tikosyn to continue current dosing. He is in need of lab work. He is not on OAC due to a chadsvasc score of zero. He will call us if his burden increases and we can discuss redo ablation. documented in this encounter [facility] 11-06-2024 Telephone encounter Note Patient scheduled with BEE 12-08-24. [facility] 11-06-2024 Miscellaneous Notes Patient scheduled with BEE 12-08-24. LVM informing patient of test results, marguerite please reach out and schedule follow up appointment. ----- Message from FRANCHESCA Portillo CNP sent at 11/06/2024 8:07 AM EST ----- Please let patient know stress test looked ok, not the best images but no clear evidence of ischemia. He is overdue for follow up, please schedule appt with me, on Tikosyn. documented in this encounter [facility] 11-06-2024 Telephone encounter Note LVM informing patient of test results, marguerite please reach out and schedule follow up appointment. [facility] 11-06-2024 Telephone encounter Note ----- Message from FRANCHESCA Portillo CNP sent at 11/06/2024 8:07 AM EST ----- Please let patient know stress test looked ok, not the best images but no clear evidence of ischemia. He is overdue for follow up, please schedule appt with me, on Tikosyn. [facility] 09-14-2024 Telephone encounter Note Please see new orders have been placed. [facility] 09-14-2024 Miscellaneous Notes Please see new orders have been placed. New orders placed. KM could you please place new orders for stress test and HM? The orders SM placed were put in wrong department. ( [facility] Central scheduling). Thank you Will need new orders. Reason for call: Carly the patients called into schedule the patient for a stress echocardiogram and Holter monitor, but the orders say cancelled and wont let me schedule. Please place new orders. Thank you Contact documented in this encounter [facility] 09-14-2024 Telephone encounter Note New orders placed. [facility] 09-14-2024 Telephone encounter Note KM could you please place new orders for stress test and HM? The orders SM placed were put in wrong department. ( [facility] Central scheduling). Thank you [facility] 09-12-2024 Telephone encounter Note Will need new orders. [facility] 09-12-2024 Telephone encounter Note Reason for call: Carly the patients called into schedule the patient for a stress echocardiogram and Holter monitor, but the orders say cancelled and wont let me schedule. Please place new orders. Thank you Contact [facility] 06-27-2024 Telephone encounter Note Sent rx request to dr bernard [facility] 06-27-2024 Miscellaneous Notes Sent rx request to dr bernard documented in this encounter [facility] 06-09-2024 Telephone encounter Note Called the patients in regards to her , letting her know that I faxed the lab order to [facility] at fax #: [phone]. [facility] 06-09-2024 Miscellaneous Notes Called the patients in regards to her , letting her know that I faxed the lab order to [facility] at fax #: [phone]. Faxed lab order to [facility] , fax #: [phone]. Name of caller: rena Contact phone number: [phone] Relationship to Patient: patient Provider: [facility] Practice: endo Chief Complaint/Reason for Call: patients is calling in needing the office to fax over an order to [facility] for the patient to get their blood work completed. phone number is [phone] they would like to be notified once that order has been placed. please advise and thank you Best time of day caller can be reached: any Patient advised that office/PCP has 24-48 business hours to return their call: Yes documented in this encounter [facility] 06-09-2024 Telephone encounter Note Faxed lab order to [facility] , fax #: [phone]. [facility] 06-08-2024 Telephone encounter Note Name of caller: rena Contact phone number: [phone] Relationship to Patient: patient Provider: [facility] Practice: [facility] Chief Complaint/Reason for Call: patients is calling in needing the office to fax over an order to [facility] for the patient to get their blood work completed. phone number is [phone] they would like to be notified once that order has been placed. please advise and thank you Best time of day caller can be reached: any Patient advised that office/PCP has 24-48 business hours to return their call: Yes [facility] 05-16-2024 History of Presen t illness Narrative Images from the original note were not included. [facility] [address] [facility] [address] Dept: [phone] Dept Loc: [phone] Visit type: Established Reason for Visit: Follow-up and Hyperthyroidism Assessment and Plan 1. Graves disease - TSH - T4, free - T3, free - methIMAzole (Tapazole) 5 MG tablet; Take 0.5 tablets (2.5 mg) by mouth every morning., Starting Wed05/16/2024, Until Wed05/16/2025, Normal Graves' hyperthyroidism - Diagnosed in 2006 in a context of new onset A-fib - Failure of remission following cessation of antithyroid medication in the past - Current regimen: Methimazole 2.5 mg daily - Clinically he seems euthyroid at this time - antibodies for Graves' were negative in May 2023 - check thyroid functions now - Further management will be based on the above I reviewed: laboratory results reviewed: Yes radiographic reports reviewed: Yes I reviewed the radiographic images personally at the time of today's visit: No Pt was advised of the results. Records from outside facility/PCP office to be requested: No Scripts sent to pharmacy of pt choice: Yes Follow up in about 1 year (around 05/16/2025). Subjective HPI PCP is CURRY BANDA Referring is PCP Previous Movement Assembler: Dr. Best and Dr. Esparza Initial [facility] endocrinology office visit: 2018 Last office visit: Interval history: S/P Ablation for A Fib in 11/2023 Graves' hyperthyroidism Per chart review patient was diagnosed with Graves' disease in 2006. Had a relapse following cessation of antithyroid medications in 2008 and has been on methimazole therapy ever since He has pertinent medical history of atrial fibrillation Current regimen: Methimazole 2.5 mg daily Labs from May 2023 shows negative TSI and negative TSH receptor antibody Family h/o thyroid dz: Yes Mom had thyroidal issues Family h/o DTC in 1st degree relatives: No Previous neck/thyroid surgery:No Personal h/o childhood XRT to head/neck/chest/body:No Previous use of thyroid hormone:No Previous use of ATDs:Yes Recent CT scan w/ contrast in last 6-8 wks: No Recent use of glucocorticoids:No Use of OTC thyroid or iodine supplements: No Current use of biotin: No Current Use of Bcomplex Vitamins: Yes B12 supplements Review of Systems Constitutional: Negative for appetite change, fatigue (varies) and unexpected weight change. Cardiovascular: Negative for palpitations (intermittent). Gastrointestinal: Negative for constipation, diarrhea, nausea and vomiting. Endocrine: Positive for heat intolerance. Neurological: Negative for tremors. An entire ROS was performed at the time of this encounter. Unless noted above in the HPI, the ROS is negative. No Known Allergies Outpatient Medications Prior to Visit Medication Sig Dispense Refill acetaminophen (Tylenol) 500 MG tablet Take 500 mg by mouth as needed. Extra strength alpha tocopherol (Vitamin E) 1000 units capsule Take 1,000 Units by mouth in the morning. apixaban (Eliquis) 5 MG tablet Take 1 tablet (5 mg) by mouth 2 times daily. 60 tablet 0 cholecalciferol (D3-5) 5,000 Units tablet Take by mouth daily. coenzyme Q-10 100 MG capsule Take 1 tablet by mouth in the morning. cyanocobalamin (Vitamin B-12) 1000 MCG tablet Take 1,000 mcg by mouth in the morning. dofetilide (Tikosyn) 500 MCG capsule Take 1 capsule by mouth twice daily 180 capsule 1 KRILL OIL PO Take by mouth daily. magnesium oxide (Mag-Ox) 400 MG tablet Take 400 mg by mouth See administration instructions. 2 pills once a day metoprolol tartrate (Lopressor) 25 MG tablet Take 1 tablet (25 mg) by mouth 2 times daily. (Patient taking differently: Take 25 mg by mouth 2 times daily as needed (afib episodes).) 60 tablet 5 naproxen (Naprosyn) 250 MG tablet Take 250 mg by mouth if needed for mild pain (1-3). omega-3 (Fish Oil) 1000 MG capsule Take 1,000 mg by mouth in the morning. TURMERIC PO Take by mouth daily. methIMAzole (Tapazole) 5 MG tablet Take 0.5 tablets (2.5 mg) by mouth every morning. 45 tablet 3 pantoprazole (Protonix) 40 MG EC tablet Take 1 tablet (40 mg) by mouth every morning (before breakfast). Do not crush, chew, or split. 30 tablet 0 No facility-administered medications prior to visit. Past Medical History: Diagnosis Date Atrial fibrillation (HCC) Heart murmur Hypothyroidism Social History Tobacco Use Smoking status: Former Smokeless tobacco: Current Types: Snuff Substance Use Topics Alcohol use: Not Currently Past Surgical History: Procedure Laterality Date ABLATION FOR ATRIAL FIBRILLATION (HISTORICAL) N/A 12/02/2023 CAPSULOTOMY, HAND 05/30/2008 12/19/18, 01/02/19, 04/05/19, 06/29/19 CARDIAC ELECTROPHYSIOLOGY PROCEDURE N/A 12/02/2023 Performed by Ezra Gerber MD at [facility] Cardiac Cath/EP Lab CARDIAC ELECTROPHYSIOLOGY PROCEDURE N/A 12/02/2023 Performed by Ezra Gerber MD at [facility] Cardiac Cath/EP Lab CARDIAC PROCEDURE 03/06/2019 TRANSESOPHAGEAL ECHOCARDIOGRAM 05/30/2008 Family History Problem Relation Name Age of Onset Heart disease Maternal Grandmother No Known Problems Brother Pancreatic cancer Father Hypertension Father Arthritis Paternal Grandmother Cancer Maternal Grandfather Arthritis Father Cancer Mother's Sister Alcohol abuse Mother's Sister Diabetes type II Mother No Known Problems Sister Multiple sclerosis Father's Brother No Known Problems Father's Sister Heart disease Mother's Brother Objective BP 112/68 Pulse 78 Ht 6' 2 (1.88 m) Wt (!) 348 lb (158 kg) BMI 44.68 kg/m Physical Exam Vitals and nursing note reviewed. Constitutional: Appearance: Normal appearance. He is obese. HENT: Head: Normocephalic and atraumatic. Eyes: Extraocular Movements: Extraocular movements intact. Comments: No proptosis or exophthalmos Cardiovascular: Rate and Rhythm: Normal rate and regular rhythm. Pulmonary: Effort: Pulmonary effort is normal. Musculoskeletal: General: No swelling. Normal range of motion. Cervical back: Normal range of motion. Skin: General: Skin is warm and dry. Neurological: General: No focal deficit present. Mental Status: He is alert and oriented to person, place, and time. Comments: Mild fine extremity tremors Psychiatric: Mood and Affect: Mood normal. Behavior: Behavior normal. Data Reviewed and Summarized Labs: Imaging/Testing: Leann Bernard MD Portions of the information within this encounter were entered using an electronic dictation system. Best attempts were made to edit/proofread the information prior to note completion. Despite the review of information, some errors may remain. If there are questions related to the information contained within the note please contact the signing physician directly. I spent 20 minutes with the pt which involved in coordination of care, medical evaluation, review of records, and/or counseling of the pt regarding her condition/disease state/prognosis on the date of this note. documented in this encounter [facility] 03-16-2024 Telephone encounter Note OV 02/2024 MSP with EKG [facility] 03-16-2024 Miscellaneous Notes OV 02/2024 MSP with EKG documented in this encounter [facility] 03-08-2024 Telephone encounter Note Patient's called in stating she needs to reschedule patient's stress test due to his work schedule. I provided her with central scheduling's phone number. [facility] 03-08-2024 Miscellaneous Notes Patient's called in stating she needs to reschedule patient's stress test due to his work schedule. I provided her with central scheduling's phone number. documented in this encounter [facility] 03-03-2024 History of Presen t illness Narrative [facility] [address] [address] Dept: [phone] Dept Loc: [phone] Visit type: Established : 1965 Chief Complaint: Chief Complaint Patient presents with 3 Month Follow Up History of Present Illness: Jorgito Fraga is a 58 y.o. male with PVI and CTI ablation 11/2023. He continues to have episodes of palpitations as well as chest pressure. Today he is in sinus rhythm. Past Medical History: Past Medical History: Diagnosis Date Atrial fibrillation (HCC) Heart murmur Hypothyroidism Past Surgical History Past Surgical History: Procedure Laterality Date ABLATION FOR ATRIAL FIBRILLATION (HISTORICAL) N/A 12/02/2023 CAPSULOTOMY, HAND 05/30/2008 12/19/18, 01/02/19, 04/05/19, 06/29/19 CARDIAC ELECTROPHYSIOLOGY PROCEDURE N/A 12/02/2023 Performed by Ezra Gerber MD at [facility] Cardiac Cath/EP Lab CARDIAC ELECTROPHYSIOLOGY PROCEDURE N/A 12/02/2023 Performed by Ezra Gerber MD at [facility] Cardiac Cath/EP Lab CARDIAC PROCEDURE 03/06/2019 TRANSESOPHAGEAL ECHOCARDIOGRAM 05/30/2008 Family History Family History Problem Relation Name Age of Onset Heart disease Maternal Grandmother No Known Problems Brother Pancreatic cancer Father Hypertension Father Arthritis Paternal Grandmother Cancer Maternal Grandfather Arthritis Father Cancer Mother's Sister Alcohol abuse Mother's Sister Diabetes type II Mother No Known Problems Sister Multiple sclerosis Father's Brother No Known Problems Father's Sister Heart disease Mother's Brother Social History Social History Tobacco Use Smoking status: Former Smokeless tobacco: Current Types: Snuff Substance Use Topics Alcohol use: Not Currently Drug use: Never Comment: Tea and sugar free henry xenia often Allergies: No Known Allergies Medications: Current Outpatient Medications: acetaminophen (Tylenol) 500 MG tablet, Take 500 mg by mouth as needed. Extra strength, Disp: , Rfl: alpha tocopherol (Vitamin E) 1000 units capsule, Take 1,000 Units by mouth in the morning., Disp: , Rfl: cholecalciferol (D3-5) 5,000 Units tablet, Take by mouth daily., Disp: , Rfl: coenzyme Q-10 100 MG capsule, Take 1 tablet by mouth in the morning., Disp: , Rfl: cyanocobalamin (Vitamin B-12) 1000 MCG tablet, Take 1,000 mcg by mouth in the morning., Disp: , Rfl: dofetilide (Tikosyn) 500 MCG capsule, Take 1 capsule (500 mcg) by mouth 2 times daily., Disp: 180 capsule, Rfl: 1 KRILL OIL PO, Take by mouth daily., Disp: , Rfl: magnesium oxide (Mag-Ox) 400 MG tablet, Take 400 mg by mouth See administration instructions. 2 pills once a day, Disp: , Rfl: methIMAzole (Tapazole) 5 MG tablet, Take 0.5 tablets (2.5 mg) by mouth every morning., Disp: 45 tablet, Rfl: 3 metoprolol tartrate (Lopressor) 25 MG tablet, Take 1 tablet (25 mg) by mouth 2 times daily. (Patient taking differently: Take 25 mg by mouth 2 times daily as needed (afib episodes).), Disp: 60 tablet, Rfl: 5 naproxen (Naprosyn) 250 MG tablet, Take 250 mg by mouth if needed for mild pain (1-3)., Disp: , Rfl: omega-3 (Fish Oil) 1000 MG capsule, Take 1,000 mg by mouth in the morning., Disp: , Rfl: TURMERIC PO, Take by mouth daily., Disp: , Rfl: apixaban (Eliquis) 5 MG tablet, Take 1 tablet (5 mg) by mouth 2 times daily. (Patient not taking: Reported on 03/03/2024), Disp: 60 tablet, Rfl: 0 pantoprazole (Protonix) 40 MG EC tablet, Take 1 tablet (40 mg) by mouth every morning (before breakfast). Do not crush, chew, or split. (Patient not taking: Reported on 03/03/2024), Disp: 30 tablet, Rfl: 0 Review of Systems: Review of Systems Constitutional: Negative. HENT: Negative. Eyes: Negative. Respiratory: Positive for apnea. Cardiovascular: Positive for palpitations (occasional heart racing episodes, also feels stabbing pain while this happens). Gastrointestinal: Negative. Endocrine: Negative. Genitourinary: Negative. Musculoskeletal: Negative. Skin: Negative. Allergic/Immunologic: Negative. Neurological: Negative. Hematological: Negative. Psychiatric/Behavioral: Negative. Physical Examination: Vitals: Vitals: 03/03/24 1519 BP: 128/78 BP Location: Left arm Patient Position: Sitting BP Cuff Size: Adult Pulse: 67 SpO2: 95% Weight: (!) 343 lb (156 kg) Height: 6' 2 (1.88 m) Body mass index is 44.04 kg/m . Physical Exam Constitutional: Appearance: Normal appearance. HENT: Head: Normocephalic and atraumatic. Mouth/Throat: Mouth: Mucous membranes are moist. Eyes: Extraocular Movements: Extraocular movements intact. Cardiovascular: Rate and Rhythm: Normal rate and regular rhythm. Pulses: Normal pulses. Heart sounds: Normal heart sounds. Pulmonary: Effort: Pulmonary effort is normal. Breath sounds: Normal breath sounds. Abdominal: Palpations: Abdomen is soft. Musculoskeletal: General: Normal range of motion. Cervical back: Normal range of motion and neck supple. Skin: General: Skin is warm and dry. Neurological: General: No focal deficit present. Mental Status: He is alert and oriented to person, place, and time. Psychiatric: Mood and Affect: Mood normal. Behavior: Behavior normal. Thought Content: Thought content normal. Judgment: Judgment normal. Laboratory Tests: Lab Results Component Value Date WBC 6.9 11/17/2023 HGB 16.0 11/17/2023 HCT 46.6 11/17/2023 MCV 85.5 11/17/2023 PLT 258 11/17/2023 Lab Results Component Value Date GLUCOSE 208 (A) 11/17/2023 CALCIUM 8.5 11/17/2023 NA 139 11/17/2023 K 4.3 11/17/2023 CO2 24 11/17/2023 CL 106 11/17/2023 BUN 11 11/17/2023 CREATININE 0.86 11/17/2023 @LASTCMP@ Lab Results Component Value Date CHOL 145 11/26/2023 Lab Results Component Value Date TRIG 115 11/26/2023 Lab Results Component Value Date HDL 25 (A) 11/26/2023 Lab Results Component Value Date LDLCALC 97 11/26/2023 Assessment and Plan: 1. Typical atrial flutter (HCC) At this time, I will order an event monitor to see what his palpitations/heart racing symptoms are. I will also order a stress test to see if ischemia may be causing his chest pressure. Further steps after we see the result of the testing. Will continue dofetilide for now. documented in this encounter [facility] 12-20-2023 Evaluation + Plan note Associated Problem(s): Typical atrial flutter (HCC) S/p successful CTI ablation with no documented recurrence. [facility] 12-20-2023 Miscellaneous Notes Associated Problem(s): Typical atrial flutter (HCC) S/p successful CTI ablation with no documented recurrence. Associated Problem(s): Paroxysmal atrial fibrillation (HCC) S/p PVI 1 month ago. He is maintaining sinus rhythm. Will continue Tikosyn for the remainder of the blanking period. His QTc is stable. He will stop Eliquis on 12/03/23, which is 1 month post-PVI given chadsvasc score of zero. documented in this encounter [facility] 12-20-2023 Evaluation + Plan note Associated Problem(s): Paroxysmal atrial fibrillation (HCC) S/p PVI 1 month ago. He is maintaining sinus rhythm. Will continue Tikosyn for the remainder of the blanking period. His QTc is stable. He will stop Eliquis on 12/03/23, which is 1 month post-PVI given chadsvasc score of zero. [facility] 12-20-2023 History of Presen t illness Narrative Images from the original note were not included. [facility] [address] [facility] [id number] Dept: [phone] Dept Visit type: Established : 1965 Reason for Visit: 1 Month Follow Up Assessment and Plan 1. Paroxysmal atrial fibrillation (HCC) Assessment & Plan: S/p PVI 1 month ago. He is maintaining sinus rhythm. Will continue Tikosyn for the remainder of the blanking period. His QTc is stable. He will stop Eliquis on 12/03/23, which is 1 month post-PVI given chadsvasc score of zero. Orders: - ECG 12 lead - CLINIC PERFORMED 2. Typical atrial flutter (HCC) Assessment & Plan: S/p successful CTI ablation with no documented recurrence. Follow up in about 2 months (around 02/18/2024) for Dr. Gerber. Alvin Fraga is a 58 y.o. male with a history of pAF/AFl with recurrence despite Tikosyn, now s/p PVI + CTI ablation with Dr. Gerber 11/2023. He presents today for 1 month follow up. Since his procedure, he has felt well. He had one episode of heart racing lasting 1 hour but otherwise has been maintaining normal rhythm. No groin pain or swelling. No bleeding issues on Eliquis. EKG today on my review shows sinus rhythm, 67 bpm. His chadsvasc score is zero. Review of Systems Constitutional: Negative for fatigue. HENT: Negative for nosebleeds. Respiratory: Negative for shortness of breath. Cardiovascular: Positive for palpitations (one episode lasting 1 hour). Negative for chest pain. Gastrointestinal: Negative for blood in stool. Genitourinary: Negative for hematuria. Neurological: Negative for dizziness, syncope and light-headedness. Hematological: Does not bruise/bleed easily. No Known Allergies Outpatient Medications Prior to Visit Medication Sig Dispense Refill acetaminophen (Tylenol) 500 MG tablet Take 500 mg by mouth as needed. Extra strength alpha tocopherol (Vitamin E) 1000 units capsule Take 1,000 Units by mouth in the morning. apixaban (Eliquis) 5 MG tablet Take 1 tablet (5 mg) by mouth 2 times daily. 60 tablet 0 cholecalciferol (D3-5) 5,000 Units tablet Take by mouth daily. coenzyme Q-10 100 MG capsule Take 1 tablet by mouth in the morning. cyanocobalamin (Vitamin B-12) 1000 MCG tablet Take 1,000 mcg by mouth in the morning. dofetilide (Tikosyn) 500 MCG capsule Take 1 capsule (500 mcg) by mouth 2 times daily. 180 capsule 1 KRILL OIL PO Take by mouth daily. magnesium oxide (Mag-Ox) 400 MG tablet Take 400 mg by mouth See administration instructions. 2 pills once a day methIMAzole (Tapazole) 5 MG tablet Take 0.5 tablets (2.5 mg) by mouth every morning. 45 tablet 3 metoprolol tartrate (Lopressor) 25 MG tablet Take 1 tablet (25 mg) by mouth 2 times daily. (Patient taking differently: Take 25 mg by mouth 2 times daily as needed (afib episodes).) 60 tablet 5 naproxen (Naprosyn) 250 MG tablet Take 250 mg by mouth if needed for mild pain (1-3). omega-3 (Fish Oil) 1000 MG capsule Take 1,000 mg by mouth in the morning. pantoprazole (Protonix) 40 MG EC tablet Take 1 tablet (40 mg) by mouth every morning (before breakfast). Do not crush, chew, or split. 30 tablet 0 TURMERIC PO Take by mouth daily. No facility-administered medications prior to visit. Past Medical History: Diagnosis Date Atrial fibrillation (HCC) Heart murmur Hypothyroidism Social History Tobacco Use Smoking status: Former Smokeless tobacco: Current Types: Snuff Substance Use Topics Alcohol use: Not Currently Past Surgical History: Procedure Laterality Date ABLATION FOR ATRIAL FIBRILLATION (HISTORICAL) N/A 12/02/2023 CAPSULOTOMY, HAND 05/30/2008 12/19/18, 01/02/19, 04/05/19, 06/29/19 CARDIAC ELECTROPHYSIOLOGY PROCEDURE N/A 12/02/2023 Performed by Ezra Gerber MD at [facility] Cardiac Cath/EP Lab CARDIAC ELECTROPHYSIOLOGY PROCEDURE N/A 12/02/2023 Performed by Ezra Gerber MD at [facility] Cardiac Cath/EP Lab CARDIAC PROCEDURE 03/06/2019 TRANSESOPHAGEAL ECHOCARDIOGRAM 05/30/2008 Family History Problem Relation Name Age of Onset Heart disease Maternal Grandmother No Known Problems Brother Pancreatic cancer Father Hypertension Father Arthritis Paternal Grandmother Cancer Maternal Grandfather Arthritis Father Cancer Mother's Sister Alcohol abuse Mother's Sister Diabetes type II Mother No Known Problems Sister Multiple sclerosis Father's Brother No Known Problems Father's Sister Heart disease Mother's Brother Objective Vitals: 12/20/23 1251 BP: 110/80 BP Location: Left arm Patient Position: Sitting BP Cuff Size: Large adult Pulse: 67 SpO2: 95% Weight: (!) 344 lb (156 kg) Physical Exam Vitals reviewed. Constitutional: General: He is not in acute distress. Appearance: Normal appearance. He is obese. HENT: Head: Normocephalic and atraumatic. Cardiovascular: Rate and Rhythm: Normal rate and regular rhythm. Heart sounds: Normal heart sounds. No murmur heard. No friction rub. No gallop. Pulmonary: Effort: Pulmonary effort is normal. Breath sounds: Normal breath sounds. No wheezing, rhonchi or rales. Skin: General: Skin is warm and dry. Neurological: Mental Status: He is alert and oriented to person, place, and time. Data Reviewed and Summarized No results found for: EFBP, PLVEF, LVEFPHYS, LVEF2D, EF Review of tests/labs done/ordered within my specialty: EKG in office: See HPI FRANCHESCA Portillo CNP documented in this encounter [facility] 12-13-2023 Telephone encounter Note Called and spoke to patient to let him know last day of taking eliquis would be 01/03/24 [facility] 12-13-2023 Miscellaneous Notes Called and spoke to patient to let him know last day of taking eliquis would be 01/03/24 Patient called back, she said her question was how long her is to continue taking the medication? Please call her back at [phone] Addended by: JEANETTE DIXON on: 12/10/2023 02:33 PM Modules accepted: Orders Since we have not heard back and it is the weekend, I sent in a 30-day supply of Eliquis to his [facility] so he does not run out. I will send him a [employer] message informing him as we have not been able to reach him. Also called and LVM on Vm as well Called and left VM to confirm how patient was out of eliquis. Will inform team when I receive a call back with information. Dr. Gerber sent a script for the Eliquis to [facility] on 10/22/23 with refills. He initially sent a 90-day supply so can you see how they are out? He only needs to remain on it for 1 month post-ablation. EASTON-11/13 KM NOV-12/15 CBC-11/13 CMP-11/13 CR-0.86 Pt's spouse calling in today asking about his Eliquis. Pt running low and they will be out of town. Asking if he will remain on the Elqiuis. If so will need new Rx sent to [facility] documented in this encounter [facility] 12-10-2023 Telephone encounter Note Patient called back, she said her question was how long her is to continue taking the medication? Please call her back at [phone] [facility] 12-10-2023 Miscellaneous Notes Patient called back, she said her question was how long her is to continue taking the medication? Please call her back at [phone] Addended by: JEANETTE DIXON on: 12/10/2023 02:33 PM Modules accepted: Orders Since we have not heard back and it is the weekend, I sent in a 30-day supply of Eliquis to his [facility] so he does not run out. I will send him a [employer] message informing him as we have not been able to reach him. Also called and LVM on Vm as well Called and left VM to confirm how patient was out of eliquis. Will inform team when I receive a call back with information. Dr. Gerber sent a script for the Eliquis to [facility] on 10/22/23 with refills. He initially sent a 90-day supply so can you see how they are out? He only needs to remain on it for 1 month post-ablation. EASTON-11/13 KM NOV-12/15 CBC-11/13 CMP-11/13 CR-0.86 Pt's spouse calling in today asking about his Eliquis. Pt running low and they will be out of town. Asking if he will remain on the Elqiuis. If so will need new Rx sent to [facility] documented in this encounter [facility] 12-10-2023 Note Addended by: JEANETTE BENAVIDES on: 12/10/2023 02:33 PM Modules accepted: Orders [facility] 12-10-2023 Note Addended by: JEANETTE BENAVIDES on: 12/10/2023 02:33 PM Modules accepted: Orders [facility] 12-10-2023 Note Addended by: JEANETTE BENAVIDES on: 12/10/2023 02:33 PM Modules accepted: Orders [facility] 12-10-2023 Telephone encounter Note Since we have not heard back and it is the weekend, I sent in a 30-day supply of Eliquis to his ted so he does not run out. I will send him a [employer] message informing him as we have not been able to reach him. [facility] 12-10-2023 Telephone encounter Note Also called and LVM on Vm as well [facility] 12-10-2023 Telephone encounter Note Called and left VM to confirm how patient was out of eliquis. Will inform team when I receive a call back with information. [facility] 12-10-[address] Gerber sent a script for the Eliquis to [facility] on 10/22/23 with refills. He initially sent a 90-day supply so can you see how they are out? He only needs to remain on it for 1 month post-ablation. [facility] 12-10-2023 Telephone encounter Note EASTON-11/13 KM NOV-12/15 CBC-11/13 CMP-11/13 CR-0.86 [facility] 12-10-2023 Telephone encounter Note Pt's spouse calling in today asking about his Eliquis. Pt running low and they will be out of town. Asking if he will remain on the Elqiuis. If so will need new Rx sent to [facility] 12-02-2023 Nurse Note Pt up went to restroom, walked hallway 400ft. Steady no drainage noted, Pt tolerated well. Changing into clothes to head home [facility] 12-02-2023 Nurse Note Pt up went to restroom, walked hallway 400ft. Steady no drainage noted, Pt tolerated well. Changing into clothes to head home Pt sat at side of bed. Tolerated well. Sitting up to eat lunch. documented in this encounter [facility] 12-02-2023 Nurse Note Pt sat at side of bed. Tolerated well. Sitting up to eat lunch. [facility] 12-02-2023 History of Presen t illness Narrative Patient seen in prep and recovery post-PVI. Doing well without complaints. Right groin stable without hematoma. Post-PVI teaching and restrictions reviewed with patient and . He received a dose of Eliquis earlier in PACU. He will remain on Eliquis for 1 month post-PVI. Start pantoprazole 40 mg daily x 1 month. If groin remains stable after ambulation, he will be discharged home this afternoon. Follow up scheduled with me before he goes to [place] in December. documented in this encounter [facility] 12-02-2023 Miscellaneous Notes REPORT GIVEN TO TOMAS, PREP AND RECOVERY UPDATE GIVEN TO PATIENTS , RENA CARPENTER SUPERVISOR WOODEN SHIP AT BEDSIDE Patient family/visitor updated by RN at this time. documented in this encounter [facility] 12-02-2023 Note Formatting of this n ote might be different from the original. REPORT GIVEN TO TOMAS, PREP AND RECOVERY UPDATE GIVEN TO PATIENTS RENA PITTS [facility] 12-02-2023 Note Formatting of this n ote might be different from the original. REPORT GIVEN TO TOMAS, PREP AND RECOVERY UPDATE GIVEN TO PATIENTS LILLYY [facility] 12-02-2023 Note Formatting of this n ote might be different from the original. CARPENTER SUPERVISOR WOODEN SHIP AT BEDSIDE [facility] 12-02-2023 Note Formatting of this n ote might be different from the original. CARPENTER SUPERVISOR WOODEN SHIP AT BEDSIDE [facility] 12-02-2023 Note Formatting of this n ote might be different from the original. Patient family/visitor updated by RN at this time. [facility] 12-02-2023 Note Formatting of this n ote might be different from the original. Patient family/visitor updated by RN at this time. [facility] 12-02-2023 Hospital Discharg e instructions Jeanette Dixon, HISTOLOGIC AIDE - HVAC ENGINEER - 12/02/2023 7:50 AM EST Post Pulmonary Vein Isolation Ablation Discharge Instructions Observe groin site for swelling, redness, warmth, or bleeding. If these occur, notify your doctor. If you develop shortness of breath, cough and/or swelling please call you doctor's office or seek emergency care for severe symptoms. You may develop mild chest discomfort with taking a deep breath post procedure which typically peaks after 3 days and then improves. If discomfort worsens please call the office. If it becomes severe please seek emergency care. No driving for the next 3 days. Do not lift anything over 10 pounds for the next 5 days. You may resume your usual exercise routine after 5 days. Slight swelling or bruising is expected. For oozing, apply pressure for 10-15 minutes For brisk bleeding that does not stop, or if your foot or leg becomes cold, come to the Emergency department Keep groin site covered overnight. You may remove the bandage the day after the procedure. No soaking in water. Showers only for the next 5 days. Resume pre-procedure diet Take all medications as prescribed by your doctor documented in this encounter [facility] 11-29-2023 Telephone encounter Note [facility] 11-29-2023 Miscellaneous Notes EASTON documented in this encounter [facility] 11-19-2023 History and physical note [facility] Telehealth Cardiology Note DATE of SERVICE: 11/19/23 TIME of SERVICE: 2:39 PM Chief Complaint: Chief Complaint Patient presents with Follow-up History of Present Illness: Jorgito Fraga is a 58 y.o. male with a history of pAF/AFl who is having recurrent atrial fibrillation despite Tikosyn. He is scheduled for PVI with Dr. Gerber 12/02/23. He was started on Eliquis and is doing well without bleeding issues. He notes palpitations, fatigue and dyspnea on exertion when he is in AF. He states he is in AF now. Participants on telehealth call: Jorgito Fraga Past Medical History: Medical History Past Medical History: Diagnosis Date Atrial fibrillation (HCC) Heart murmur Hypothyroidism Past Surgical History Surgical History Past Surgical History: Procedure Laterality Date CAPSULOTOMY, HAND 05/30/2008 12/19/18, 01/02/19, 04/05/19, 06/29/19 CARDIAC PROCEDURE 03/06/2019 TRANSESOPHAGEAL ECHOCARDIOGRAM 05/30/2008 Family History Family History Family History Problem Relation Name Age of Onset Heart disease Maternal Grandmother No Known Problems Brother Pancreatic cancer Father Hypertension Father Arthritis Paternal Grandmother Cancer Maternal Grandfather Arthritis Father Cancer Mother's Sister Alcohol abuse Mother's Sister Diabetes type II Mother No Known Problems Sister Multiple sclerosis Father's Brother No Known Problems Father's Sister Heart disease Mother's Brother Social History Social History Tobacco Use Smoking status: Former Smokeless tobacco: Current Types: Snuff Substance Use Topics Alcohol use: Not Currently Drug use: Never Comment: Tea and sugar free henry xenia often Allergies: No Known Allergies Medications: Current Outpatient Medications: acetaminophen (Tylenol) 500 MG tablet, Take 500 mg by mouth as needed. Extra strength, Disp: , Rfl: alpha tocopherol (Vitamin E) 1000 units capsule, Take 1,000 Units by mouth in the morning., Disp: , Rfl: apixaban (Eliquis) 5 MG tablet, Take 1 tablet (5 mg) by mouth 2 times daily., Disp: 180 tablet, Rfl: 3 cholecalciferol (D3-5) 5,000 Units tablet, Take by mouth daily., Disp: , Rfl: coenzyme Q-10 100 MG capsule, Take 1 tablet by mouth in the morning., Disp: , Rfl: cyanocobalamin (Vitamin B-12) 1000 MCG tablet, Take 1,000 mcg by mouth in the morning., Disp: , Rfl: dofetilide (Tikosyn) 500 MCG capsule, Take 1 capsule (500 mcg) by mouth 2 times daily., Disp: 180 capsule, Rfl: 1 KRILL OIL PO, Take by mouth daily., Disp: , Rfl: magnesium oxide (Mag-Ox) 400 MG tablet, Take 400 mg by mouth See administration instructions. 2 pills once a day, Disp: , Rfl: methIMAzole (Tapazole) 5 MG tablet, Take 0.5 tablets (2.5 mg) by mouth every morning., Disp: 45 tablet, Rfl: 3 metoprolol tartrate (Lopressor) 25 MG tablet, Take 1 tablet (25 mg) by mouth 2 times daily. (Patient taking differently: Take 25 mg by mouth 2 times daily as needed.), Disp: 60 tablet, Rfl: 11 naproxen (Naprosyn) 250 MG tablet, Take 250 mg by mouth if needed for mild pain (1-3)., Disp: , Rfl: omega-3 (Fish Oil) 1000 MG capsule, Take 1,000 mg by mouth in the morning., Disp: , Rfl: TURMERIC PO, Take by mouth daily., Disp: , Rfl: Review of Systems: Review of Systems Constitutional: Positive for fatigue. HENT: Negative for nosebleeds. Respiratory: Positive for shortness of breath. Cardiovascular: Positive for palpitations and leg swelling. Negative for chest pain. Gastrointestinal: Negative for blood in stool. Genitourinary: Negative for hematuria. Neurological: Negative for dizziness, syncope and light-headedness. Hematological: Does not bruise/bleed easily. Vital Signs (self reported) None reported No flowsheet data found. Limited Telehealth exam Constitutional: [x]Alert []Oriented Appearance: []Healthy []Chronically ill []Acutely ill []Disheveled [x]NA (audio only) Medical Insight: [x]Good []Adequate []Limited []Poor Laboratory Tests: Lab Results Component Value Date GLUCOSE 92 07/29/2022 CALCIUM 9.2 07/29/2022 NA 139 07/29/2022 K 3.9 07/29/2022 CO2 28.0 07/29/2022 CL 106 07/29/2022 BUN 13 07/29/2022 CREATININE 0.80 07/29/2022 Cardiac Tests: Assessment and Plan: Diagnosis Plan 1. Paroxysmal atrial fibrillation (HCC) 2. Typical atrial flutter (HCC) Patient having recurrent atrial fibrillation despite Tikosyn. He is scheduled for PVI + CTI ablation with Dr. Gerber 12/02/23. Last dose of Eliquis 11/30/23 in the evening. This was reiterated to him and his over the phone. Pre-procedure lab work received from [facility] and unremarkable. All questions answered. Patient was seen today via Telehealth by agreement and consent. I used the following Telehealth technology: Audio capability only. Total length of call 12 minutes. The patient was offered and advised video for a more comprehensive evaluation, but the patient declined or was unable to use video. Patient location: Patient Location: Home. This patient encounter is appropriate and reasonable under the circumstances: H&P update . The patient has been advised of the potential risks and limitations of this mode of treatment (including but not limited to the absence of in-person examination) and has agreed to be treated in a remote fashion in spite of them. Any and all of the patient's/patient's family's questions on this issue have been answered and I have made no promises or guarantees to the patient. The patient has also been advised to contact this office for worsening conditions or problems, and seek emergency medical treatment and/or call 911 if the patient deems either necessary. The patient stated that they are currently in the [facility]. If the patient is a minor, permission has been obtained by the parent or guardian for the patient to receive medical care at this visit. H+ P copied to chart from Jeanette Dixon APRN's progress note dated 11/19/[address] Gerber. I have examined the patient on admission and confirm that the necessity for the procedure is still present. The patient's condition has not changed since the History & Physical was originally completed. Ezra Gerber MD [facility] 11-19-2023 History and physical note [facility] Telehealth Cardiology Note DATE of SERVICE: 11/19/23 TIME of SERVICE: 2:39 PM Chief Complaint: Chief Complaint Patient presents with Follow-up History of Present Illness: Jorgito Fraga is a 58 y.o. male with a history of pAF/AFl who is having recurrent atrial fibrillation despite Tikosyn. He is scheduled for PVI with Dr. Gerber 12/02/23. He was started on Eliquis and is doing well without bleeding issues. He notes palpitations, fatigue and dyspnea on exertion when he is in AF. He states he is in AF now. Participants on telehealth call: Jorgito Fraga Past Medical History: Medical History Past Medical History: Diagnosis Date Atrial fibrillation (HCC) Heart murmur Hypothyroidism Past Surgical History Surgical History Past Surgical History: Procedure Laterality Date CAPSULOTOMY, HAND 05/30/2008 12/19/18, 01/02/19, 04/05/19, 06/29/19 CARDIAC PROCEDURE 03/06/2019 TRANSESOPHAGEAL ECHOCARDIOGRAM 05/30/2008 Family History Family History Family History Problem Relation Name Age of Onset Heart disease Maternal Grandmother No Known Problems Brother Pancreatic cancer Father Hypertension Father Arthritis Paternal Grandmother Cancer Maternal Grandfather Arthritis Father Cancer Mother's Sister Alcohol abuse Mother's Sister Diabetes type II Mother No Known Problems Sister Multiple sclerosis Father's Brother No Known Problems Father's Sister Heart disease Mother's Brother Social History Social History Tobacco Use Smoking status: Former Smokeless tobacco: Current Types: Snuff Substance Use Topics Alcohol use: Not Currently Drug use: Never Comment: Tea and sugar free henry xenia often Allergies: No Known Allergies Medications: Current Outpatient Medications: acetaminophen (Tylenol) 500 MG tablet, Take 500 mg by mouth as needed. Extra strength, Disp: , Rfl: alpha tocopherol (Vitamin E) 1000 units capsule, Take 1,000 Units by mouth in the morning., Disp: , Rfl: apixaban (Eliquis) 5 MG tablet, Take 1 tablet (5 mg) by mouth 2 times daily., Disp: 180 tablet, Rfl: 3 cholecalciferol (D3-5) 5,000 Units tablet, Take by mouth daily., Disp: , Rfl: coenzyme Q-10 100 MG capsule, Take 1 tablet by mouth in the morning., Disp: , Rfl: cyanocobalamin (Vitamin B-12) 1000 MCG tablet, Take 1,000 mcg by mouth in the morning., Disp: , Rfl: dofetilide (Tikosyn) 500 MCG capsule, Take 1 capsule (500 mcg) by mouth 2 times daily., Disp: 180 capsule, Rfl: 1 KRILL OIL PO, Take by mouth daily., Disp: , Rfl: magnesium oxide (Mag-Ox) 400 MG tablet, Take 400 mg by mouth See administration instructions. 2 pills once a day, Disp: , Rfl: methIMAzole (Tapazole) 5 MG tablet, Take 0.5 tablets (2.5 mg) by mouth every morning., Disp: 45 tablet, Rfl: 3 metoprolol tartrate (Lopressor) 25 MG tablet, Take 1 tablet (25 mg) by mouth 2 times daily. (Patient taking differently: Take 25 mg by mouth 2 times daily as needed.), Disp: 60 tablet, Rfl: 11 naproxen (Naprosyn) 250 MG tablet, Take 250 mg by mouth if needed for mild pain (1-3)., Disp: , Rfl: omega-3 (Fish Oil) 1000 MG capsule, Take 1,000 mg by mouth in the morning., Disp: , Rfl: TURMERIC PO, Take by mouth daily., Disp: , Rfl: Review of Systems: Review of Systems Constitutional: Positive for fatigue. HENT: Negative for nosebleeds. Respiratory: Positive for shortness of breath. Cardiovascular: Positive for palpitations and leg swelling. Negative for chest pain. Gastrointestinal: Negative for blood in stool. Genitourinary: Negative for hematuria. Neurological: Negative for dizziness, syncope and light-headedness. Hematological: Does not bruise/bleed easily. Vital Signs (self reported) None reported No flowsheet data found. Limited Telehealth exam Constitutional: [x]Alert []Oriented Appearance: []Healthy []Chronically ill []Acutely ill []Disheveled [x]NA (audio only) Medical Insight: [x]Good []Adequate []Limited []Poor Laboratory Tests: Lab Results Component Value Date GLUCOSE 92 07/29/2022 CALCIUM 9.2 07/29/2022 NA 139 07/29/2022 K 3.9 07/29/2022 CO2 28.0 07/29/2022 CL 106 07/29/2022 BUN 13 07/29/2022 CREATININE 0.80 07/29/2022 Cardiac Tests: Assessment and Plan: Diagnosis Plan 1. Paroxysmal atrial fibrillation (HCC) 2. Typical atrial flutter (HCC) Patient having recurrent atrial fibrillation despite Tikosyn. He is scheduled for PVI + CTI ablation with Dr. Gerber 12/02/23. Last dose of Eliquis 11/30/23 in the evening. This was reiterated to him and his over the phone. Pre-procedure lab work received from [facility] and unremarkable. All questions answered. Patient was seen today via Telehealth by agreement and consent. I used the following Telehealth technology: Audio capability only. Total length of call 12 minutes. The patient was offered and advised video for a more comprehensive evaluation, but the patient declined or was unable to use video. Patient location: Patient Location: Home. This patient encounter is appropriate and reasonable under the circumstances: H&P update . The patient has been advised of the potential risks and limitations of this mode of treatment (including but not limited to the absence of in-person examination) and has agreed to be treated in a remote fashion in spite of them. Any and all of the patient's/patient's family's questions on this issue have been answered and I have made no promises or guarantees to the patient. The patient has also been advised to contact this office for worsening conditions or problems, and seek emergency medical treatment and/or call 911 if the patient deems either necessary. The patient stated that they are currently in the state [facility]. If the patient is a minor, permission has been obtained by the parent or guardian for the patient to receive medical care at this visit. H+ P copied to chart from Jeanette Dixon APRN's progress note dated 11/19/[address] Gerber. I have examined the patient on admission and confirm that the necessity for the procedure is still present. The patient's condition has not changed since the History & Physical was originally completed. Ezra Gerber MD documented in this encounter [facility] 11-19-2023 History of Presen t illness Narrative [facility] Telehealth Cardiology Note DATE of SERVICE: 11/19/23 TIME of SERVICE: 2:39 PM Chief Complaint: Chief Complaint Patient presents with Follow-up History of Present Illness: Jorgito Fraga is a 58 y.o. male with a history of pAF/AFl who is having recurrent atrial fibrillation despite Tikosyn. He is scheduled for PVI with Dr. Gerber 12/02/23. He was started on Eliquis and is doing well without bleeding issues. He notes palpitations, fatigue and dyspnea on exertion when he is in AF. He states he is in AF now. Participants on telehealth call: Jorgito Fraga Past Medical History: Past Medical History: Diagnosis Date Atrial fibrillation (HCC) Heart murmur Hypothyroidism Past Surgical History Past Surgical History: Procedure Laterality Date CAPSULOTOMY, HAND 05/30/2008 12/19/18, 01/02/19, 04/05/19, 06/29/19 CARDIAC PROCEDURE 03/06/2019 TRANSESOPHAGEAL ECHOCARDIOGRAM 05/30/2008 Family History Family History Problem Relation Name Age of Onset Heart disease Maternal Grandmother No Known Problems Brother Pancreatic cancer Father Hypertension Father Arthritis Paternal Grandmother Cancer Maternal Grandfather Arthritis Father Cancer Mother's Sister Alcohol abuse Mother's Sister Diabetes type II Mother No Known Problems Sister Multiple sclerosis Father's Brother No Known Problems Father's Sister Heart disease Mother's Brother Social History Social History Tobacco Use Smoking status: Former Smokeless tobacco: Current Types: Snuff Substance Use Topics Alcohol use: Not Currently Drug use: Never Comment: Tea and sugar free henry xenia often Allergies: No Known Allergies Medications: Current Outpatient Medications: acetaminophen (Tylenol) 500 MG tablet, Take 500 mg by mouth as needed. Extra strength, Disp: , Rfl: alpha tocopherol (Vitamin E) 1000 units capsule, Take 1,000 Units by mouth in the morning., Disp: , Rfl: apixaban (Eliquis) 5 MG tablet, Take 1 tablet (5 mg) by mouth 2 times daily., Disp: 180 tablet, Rfl: 3 cholecalciferol (D3-5) 5,000 Units tablet, Take by mouth daily., Disp: , Rfl: coenzyme Q-10 100 MG capsule, Take 1 tablet by mouth in the morning., Disp: , Rfl: cyanocobalamin (Vitamin B-12) 1000 MCG tablet, Take 1,000 mcg by mouth in the morning., Disp: , Rfl: dofetilide (Tikosyn) 500 MCG capsule, Take 1 capsule (500 mcg) by mouth 2 times daily., Disp: 180 capsule, Rfl: 1 KRILL OIL PO, Take by mouth daily., Disp: , Rfl: magnesium oxide (Mag-Ox) 400 MG tablet, Take 400 mg by mouth See administration instructions. 2 pills once a day, Disp: , Rfl: methIMAzole (Tapazole) 5 MG tablet, Take 0.5 tablets (2.5 mg) by mouth every morning., Disp: 45 tablet, Rfl: 3 metoprolol tartrate (Lopressor) 25 MG tablet, Take 1 tablet (25 mg) by mouth 2 times daily. (Patient taking differently: Take 25 mg by mouth 2 times daily as needed.), Disp: 60 tablet, Rfl: 11 naproxen (Naprosyn) 250 MG tablet, Take 250 mg by mouth if needed for mild pain (1-3)., Disp: , Rfl: omega-3 (Fish Oil) 1000 MG capsule, Take 1,000 mg by mouth in the morning., Disp: , Rfl: TURMERIC PO, Take by mouth daily., Disp: , Rfl: Review of Systems: Review of Systems Constitutional: Positive for fatigue. HENT: Negative for nosebleeds. Respiratory: Positive for shortness of breath. Cardiovascular: Positive for palpitations and leg swelling. Negative for chest pain. Gastrointestinal: Negative for blood in stool. Genitourinary: Negative for hematuria. Neurological: Negative for dizziness, syncope and light-headedness. Hematological: Does not bruise/bleed easily. Vital Signs (self reported) None reported No flowsheet data found. Limited Telehealth exam Constitutional: [x]Alert []Oriented Appearance: []Healthy []Chronically ill []Acutely ill []Disheveled [x]NA (audio only) Medical Insight: [x]Good []Adequate []Limited []Poor Laboratory Tests: Lab Results Component Value Date GLUCOSE 92 07/29/2022 CALCIUM 9.2 07/29/2022 NA 139 07/29/2022 K 3.9 07/29/2022 CO2 28.0 07/29/2022 CL 106 07/29/2022 BUN 13 07/29/2022 CREATININE 0.80 07/29/2022 Cardiac Tests: Assessment and Plan: Diagnosis Plan 1. Paroxysmal atrial fibrillation (HCC) 2. Typical atrial flutter (HCC) Patient having recurrent atrial fibrillation despite Tikosyn. He is scheduled for PVI + CTI ablation with Dr. Gerber 12/02/23. Last dose of Eliquis 11/30/23 in the evening. This was reiterated to him and his over the phone. Pre-procedure lab work received from [facility] and unremarkable. All questions answered. Patient was seen today via Telehealth by agreement and consent. I used the following Telehealth technology: Audio capability only. Total length of call 12 minutes. The patient was offered and advised video for a more comprehensive evaluation, but the patient declined or was unable to use video. Patient location: [place] Patient Location: Home. This patient encounter is appropriate and reasonable under the circumstances: H&P update . The patient has been advised of the potential risks and limitations of this mode of treatment (including but not limited to the absence of in-person examination) and has agreed to be treated in a remote fashion in spite of them. Any and all of the patient's/patient's family's questions on this issue have been answered and I have made no promises or guarantees to the patient. The patient has also been advised to contact this office for worsening conditions or problems, and seek emergency medical treatment and/or call 911 if the patient deems either necessary. The patient stated that they are currently in the state [facility]. If the patient is a minor, permission has been obtained by the parent or guardian for the patient to receive medical care at this visit. documented in this encounter [facility] 10-28-2023 History of Presen t illness Narrative Images from the original note were not included. [facility] [address] [address] Dept: [phone] Dept Loc: [phone] Visit type: Established Reason for Visit: Follow-up and Hyperthyroidism Assessment and Plan 1. Graves disease - methIMAzole (Tapazole) 5 MG tablet; Take 0.5 tablets (2.5 mg) by mouth every morning., Starting Yvette 10/28/2023, Until 10/27/2024, Normal - TSH - T4, free - T3, free Graves' hyperthyroidism - Diagnosed in 2006 in a context of new onset A-fib - Failure of remission following cessation of antithyroid medication in the past - Current regimen: Methimazole 5 mg daily - Clinically he seems euthyroid at this time - antibodies for Graves' were negative in May 2023 - decrease dose of methimazole to 2.5 mg daily and have thyroid function checked in 3 months - Further management will be based on the above I reviewed: laboratory results reviewed: Yes radiographic reports reviewed: Yes I reviewed the radiographic images personally at the time of today's visit: No Pt was advised of the results. Records from outside facility/PCP office to be requested: No Scripts sent to pharmacy of pt choice: Yes Follow up in about 6 months (around 04/28/2024). Subjective HPI PCP is CURRY BANDA Referring is PCP Previous Movement Assembler: Dr. Best and Dr. Esparza [facility] office visit: 2018 Last office visit: Interval history: Has been having episodes of palpitations and shortness of breath -scheduled for ablation procedure in November Graves' hyperthyroidism Per chart review patient was diagnosed with Graves' disease in 2006. Had a relapse following cessation of antithyroid medications in 2008 and has been on methimazole therapy ever since He has pertinent medical history of atrial fibrillation Current regimen: Methimazole 5 mg daily Labs from May 2023 shows negative TSI and negative TSH receptor antibody & normal thyroid functions Labs from September 2023 showed TSH 3.22, free T4 0.93, free T3 2.8 Family h/o thyroid dz: Yes Mom had thyroidal issues Family h/o DTC in 1st degree relatives: No Previous neck/thyroid surgery:No Personal h/o childhood XRT to head/neck/chest/body:No Previous use of thyroid hormone:No Previous use of ATDs:Yes Recent CT scan w/ contrast in last 6-8 wks: No Recent use of glucocorticoids:No Use of OTC thyroid or iodine supplements: No Current use of biotin: No Current Use of Bcomplex Vitamins: Yes B12 supplements Called and spoke with his as well over the phone Review of Systems Constitutional: Negative for appetite change, fatigue (varies) and unexpected weight change. Cardiovascular: Negative for palpitations (intermittent). Gastrointestinal: Negative for constipation, diarrhea (sometimes related to food intake), nausea and vomiting. Neurological: Negative for tremors. An entire ROS was performed at the time of this encounter. Unless noted above in the HPI, the ROS is negative. No Known Allergies Outpatient Medications Prior to Visit Medication Sig Dispense Refill acetaminophen (Tylenol) 500 MG tablet Take 500 mg by mouth as needed. Extra strength alpha tocopherol (Vitamin E) 1000 units capsule Take 1,000 Units by mouth in the morning. cholecalciferol (D3-5) 5,000 Units tablet Take by mouth daily. coenzyme Q-10 100 MG capsule Take 1 tablet by mouth in the morning. cyanocobalamin (Vitamin B-12) 1000 MCG tablet Take 1,000 mcg by mouth in the morning. dofetilide (Tikosyn) 500 MCG capsule Take 1 capsule (500 mcg) by mouth 2 times daily. 180 capsule 1 KRILL OIL PO Take by mouth daily. magnesium oxide (Mag-Ox) 400 MG tablet Take 400 mg by mouth See administration instructions. 2 pills once a day metoprolol tartrate (Lopressor) 25 MG tablet Take 1 tablet (25 mg) by mouth 2 times daily. (Patient taking differently: Take 25 mg by mouth 2 times daily as needed.) 60 tablet 11 naproxen (Naprosyn) 250 MG tablet Take 250 mg by mouth if needed for mild pain (1-3). omega-3 (Fish Oil) 1000 MG capsule Take 1,000 mg by mouth in the morning. TURMERIC PO Take by mouth daily. methIMAzole (Tapazole) 5 MG tablet TAKE 1 TABLET IN THE MORNING 90 tablet 3 apixaban (Eliquis) 5 MG tablet Take 1 tablet (5 mg) by mouth 2 times daily. (Patient not taking: Reported on 10/28/2023) 180 tablet 3 No facility-administered medications prior to visit. Past Medical History: Diagnosis Date Atrial fibrillation (HCC) Heart murmur Hypothyroidism Social History Tobacco Use Smoking status: Former Smokeless tobacco: Current Types: Snuff Substance Use Topics Alcohol use: Not Currently Past Surgical History: Procedure Laterality Date CAPSULOTOMY, HAND 05/30/2008 12/19/18, 01/02/19, 04/05/19, 06/29/19 CARDIAC PROCEDURE 03/06/2019 TRANSESOPHAGEAL ECHOCARDIOGRAM 05/30/2008 Family History Problem Relation Name Age of Onset Heart disease Maternal Grandmother No Known Problems Brother Pancreatic cancer Father Hypertension Father Arthritis Paternal Grandmother Cancer Maternal Grandfather Arthritis Father Cancer Mother's Sister Alcohol abuse Mother's Sister Diabetes type II Mother No Known Problems Sister Multiple sclerosis Father's Brother No Known Problems Father's Sister Heart disease Mother's Brother Objective BP 126/74 Pulse 67 Ht 6' 2 (1.88 m) Wt (!) 347 lb (157 kg) BMI 44.55 kg/m Physical Exam Vitals and nursing note reviewed. Constitutional: Appearance: Normal appearance. He is obese. HENT: Head: Normocephalic and atraumatic. Eyes: Extraocular Movements: Extraocular movements intact. Comments: No proptosis or exophthalmos Cardiovascular: Rate and Rhythm: Normal rate and regular rhythm. Pulmonary: Effort: Pulmonary effort is normal. Musculoskeletal: General: No swelling. Normal range of motion. Cervical back: Normal range of motion. Skin: General: Skin is warm and dry. Neurological: General: No focal deficit present. Mental Status: He is alert and oriented to person, place, and time. Comments: No tremors Psychiatric: Mood and Affect: Mood normal. Behavior: Behavior normal. Data Reviewed and Summarized Labs: Imaging/Testing: Leann Bernard MD Portions of the information within this encounter were entered using an electronic dictation system. Best attempts were made to edit/proofread the information prior to note completion. Despite the review of information, some errors may remain. If there are questions related to the information contained within the note please contact the signing physician directly. documented in this encounter [facility] 10-22-2023 History of Presen t illness Narrative [facility] [address] [place] [id number] Dept: [phone] Dept Visit type: Established : 1965 Chief Complaint: Chief Complaint Patient presents with New Patient History of Present Illness: Jorgito Fraga is a 58 y.o. male with PAF/AFL on Tikosyn who presents to discuss ablation. He follows with Dr. Banda. He has been having breakthrough episodes of AF on Tikosyn and would like to learn more about AF. His symptoms include shortness of breath and exercise intolerance. He is not on anticoagulation given his low [id number] score. Past Medical History: Past Medical History: Diagnosis Date Atrial fibrillation (CMS/HCC) (HCC) Heart murmur Hypothyroidism Past Surgical History Past Surgical History: Procedure Laterality Date CAPSULOTOMY, HAND 05/30/2008 12/19/18, 01/02/19, 04/05/19, 06/29/19 CARDIAC PROCEDURE 03/06/2019 TRANSESOPHAGEAL ECHOCARDIOGRAM 05/30/2008 Family History Family History Problem Relation Name Age of Onset Heart disease Maternal Grandmother No Known Problems Brother Pancreatic cancer Father Hypertension Father Arthritis Paternal Grandmother Cancer Maternal Grandfather Arthritis Father Cancer Mother's Sister Alcohol abuse Mother's Sister Diabetes type II Mother No Known Problems Sister Multiple sclerosis Father's Brother No Known Problems Father's Sister Heart disease Mother's Brother Social History Social History Tobacco Use Smoking status: Former Smokeless tobacco: Current Types: Snuff Substance Use Topics Alcohol use: Not Currently Drug use: Never Comment: Tea and sugar free henry xenia often Allergies: No Known Allergies Medications: Current Outpatient Medications: acetaminophen (Tylenol) 500 MG tablet, Take 500 mg by mouth as needed. Extra strength, Disp: , Rfl: alpha tocopherol (Vitamin E) 1000 units capsule, Take 1,000 Units by mouth in the morning., Disp: , Rfl: Aspirin 81 MG capsule, Take 81 mg by mouth in the morning., Disp: , Rfl: cholecalciferol (D3-5) 5,000 Units tablet, Take by mouth daily., Disp: , Rfl: coenzyme Q-10 100 MG capsule, Take 1 tablet by mouth in the morning., Disp: , Rfl: cyanocobalamin (Vitamin B-12) 1000 MCG tablet, Take 1,000 mcg by mouth in the morning., Disp: , Rfl: dofetilide (Tikosyn) 500 MCG capsule, Take 1 capsule (500 mcg) by mouth 2 times daily., Disp: 180 capsule, Rfl: 1 KRILL OIL PO, Take by mouth daily., Disp: , Rfl: magnesium oxide (Mag-Ox) 400 MG tablet, Take 400 mg by mouth See administration instructions. 2 pills once a day, Disp: , Rfl: methIMAzole (Tapazole) 5 MG tablet, TAKE 1 TABLET IN THE MORNING, Disp: 90 tablet, Rfl: 3 metoprolol tartrate (Lopressor) 25 MG tablet, Take 1 tablet (25 mg) by mouth 2 times daily. (Patient taking differently: Take 25 mg by mouth 2 times daily as needed.), Disp: 60 tablet, Rfl: 11 naproxen (Naprosyn) 250 MG tablet, Take 250 mg by mouth if needed for mild pain (1-3)., Disp: , Rfl: omega-3 (Fish Oil) 1000 MG capsule, Take 1,000 mg by mouth in the morning., Disp: , Rfl: TURMERIC PO, Take by mouth daily., Disp: , Rfl: Review of Systems: Review of Systems Constitutional: Positive for fatigue. Negative for activity change, chills, diaphoresis and fever. HENT: Negative. Negative for nosebleeds and trouble swallowing. Eyes: Negative. Negative for discharge and visual disturbance. Respiratory: Positive for shortness of breath. Negative for apnea, cough, chest tightness and wheezing. Cardiovascular: Positive for palpitations. Negative for chest pain and leg swelling. Gastrointestinal: Negative. Negative for abdominal distention, abdominal pain, blood in stool, diarrhea, nausea and vomiting. Endocrine: Negative. Negative for cold intolerance and heat intolerance. Genitourinary: Negative. Negative for hematuria. Musculoskeletal: Negative. Negative for gait problem and myalgias. Skin: Negative. Negative for color change and rash. Neurological: Positive for light-headedness. Negative for dizziness, seizures, syncope, facial asymmetry, speech difficulty, weakness, numbness and headaches. Hematological: Negative. Does not bruise/bleed easily. Psychiatric/Behavioral: Negative. Negative for dysphoric mood. Physical Examination: Vitals: Vitals: 10/22/23 1315 BP: 130/78 BP Location: Left arm Patient Position: Sitting BP Cuff Size: Large adult Pulse: 68 SpO2: 93% Weight: (!) 345 lb 3.2 oz (157 kg) Height: 6' 2 (1.88 m) Body mass index is 44.32 kg/m . Physical Exam Constitutional: Appearance: Normal appearance. HENT: Head: Normocephalic and atraumatic. Mouth/Throat: Mouth: Mucous membranes are moist. Eyes: Extraocular Movements: Extraocular movements intact. Cardiovascular: Rate and Rhythm: Normal rate and regular rhythm. Pulses: Normal pulses. Heart sounds: Normal heart sounds. Pulmonary: Effort: Pulmonary effort is normal. Breath sounds: Normal breath sounds. Abdominal: Palpations: Abdomen is soft. Musculoskeletal: General: Normal range of motion. Cervical back: Normal range of motion and neck supple. Skin: General: Skin is warm and dry. Neurological: General: No focal deficit present. Mental Status: He is alert and oriented to person, place, and time. Psychiatric: Mood and Affect: Mood normal. Behavior: Behavior normal. Thought Content: Thought content normal. Judgment: Judgment normal. Laboratory Tests: No results found for: WBC, HGB, HCT, MCV, PLT Lab Results Component Value Date GLUCOSE 92 07/29/2022 CALCIUM 9.2 07/29/2022 NA 139 07/29/2022 K 3.9 07/29/2022 CO2 28.0 07/29/2022 CL 106 07/29/2022 BUN 13 07/29/2022 CREATININE 0.80 07/29/2022 @LASTP@ No results found for: CHLPL, CHOL No results found for: TRIG No results found for: HDL No results found for: LDLCALC No results found for: BNP Cardiac Tests: Last Echo: 2018 SUMMARY: 1. Left ventricle: The cavity size is normal. Wall thickness is mildly increased. Systolic function is normal by the biplane method of disks. The estimated ejection fraction is 58%. 2. Right ventricle: The cavity size is normal. Systolic function is normal. 3. No significant valve disease. Assessment and Plan: 1. Paroxysmal atrial fibrillation (HCC) Mr. Fraga is here to discuss ablation for his AF/AFL. The indications, risks, benefits, alternatives, and details of the procedure were explained to the patient who expressed understanding of the risks including but are not limited to: pain, bleeding, and infection for which the risk is less than 1%. More serious risks, including cardiac perforation and tamponade, vascular trauma, pulmonary vein stenosis, atrio-esophageal fistula, diaphragmatic paralysis, life-threatening arrhythmia, need for permanent pacemaker, stroke, heart attack, and/or , for which the overall risk ranges 0.1-1%. He would like to proceed. We will schedule him at his convenience. I will have him begin Eliquis at least 3 weeks prior to the ablation and he knows he will need to stay on it for a brief period afterwards. documented in this encounter [facility] 09-29-2023 Telephone encounter Note Normal thyroid functions , will discuss during clinic visit next month [facility] 09-29-2023 Miscellaneous Notes Normal thyroid functions , will discuss during clinic visit next month Thyroid lab results are scanned into the media for review. documented in this encounter [facility] 09-29-2023 Telephone encounter Note Thyroid lab results are scanned into the media for review. [facility] 09-27-2023 Telephone encounter Note Labs from May 2023 shows negative TSI and negative TSH receptor antibody & normal thyroid functions. Will discuss during clinic visit next month [facility] 09-27-2023 Miscellaneous Notes Labs from May 2023 shows negative TSI and negative TSH receptor antibody & normal thyroid functions. Will discuss during clinic visit next month Lab results are scanned into the media for your review. documented in this encounter [facility] 09-27-2023 Telephone encounter Note Lab results are scanned into the media for your review. [facility] 09-20-2023 Telephone encounter Note Spoke to pt's who stated [facility] needed lab orders faxed over. Faxed orders to [phone]. [facility] 09-20-2023 Miscellaneous Notes Spoke to pt's who stated [facility] needed lab orders faxed over. Faxed orders to [phone]. documented in this encounter [facility] 09-15-2023 Telephone encounter Note OV 06/2023 JKS with EKG Spoke with no current BMP Please mail the lab slip to house ( order placed january) Also fax to [facility] that where hre goes thanks [facility] 09-15-2023 Miscellaneous Notes OV 06/2023 JKS with EKG Spoke with no current BMP Please mail the lab slip to house ( order placed january) Also fax to [facility] that where hre goes thanks Pt's calling in today for refill on dofetilide 500 mcg to [facility] in [place] requesting 90 day supply with refills documented in this encounter [facility] 09-15-2023 Telephone encounter Note Pt's calling in today for refill on dofetilide 500 mcg to [facility] in [place] requesting 90 day supply with refills [facility] 06-28-2023 History of Presen t illness Narrative [facility] Cardiology Note Chief Complaint: Chief Complaint Patient presents with Follow-up History of Present Illness: Jorgito Farga is a 57 y.o. male presents for an urgent visit as he is an increase in atrial fibrillation. His parents have both this year and stress has been increased. In the last month or so he thinks perhaps 50% of the time he has been in atrial fibrillation. He is very much aware of his symptomatology and unfamiliar with the issues of shortness of breath and exercise intolerance. He remains incredibly active. He is wearing his CPAP 4 to 6 hours per night. Past Medical History: Past Medical History: Diagnosis Date Atrial fibrillation (CMS/HCC) (HCC) Heart murmur Hypothyroidism Past Surgical History Past Surgical History: Procedure Laterality Date CAPSULOTOMY, HAND 05/30/2008 12/19/18, 01/02/19, 04/05/19, 06/29/19 CARDIAC PROCEDURE 03/06/2019 TRANSESOPHAGEAL ECHOCARDIOGRAM 05/30/2008 Family History Family History Problem Relation Name Age of Onset Heart disease Maternal Grandmother No Known Problems Brother Pancreatic cancer Father Hypertension Father Arthritis Paternal Grandmother Cancer Maternal Grandfather Arthritis Father Cancer Mother's Sister Alcohol abuse Mother's Sister Diabetes type II Mother No Known Problems Sister Multiple sclerosis Father's Brother No Known Problems Father's Sister Heart disease Mother's Brother Social History Social History Tobacco Use Smoking status: Former Smokeless tobacco: Current Types: Snuff Substance Use Topics Alcohol use: Not Currently Drug use: Never Comment: Tea and sugar free henry xenia often Allergies: No Known Allergies Medications: Current Outpatient Medications: acetaminophen (Tylenol) 500 MG tablet, Take 500 mg by mouth as needed. Extra strength, Disp: , Rfl: alpha tocopherol (Vitamin E) 1000 units capsule, Take 1,000 Units by mouth in the morning., Disp: , Rfl: Aspirin 81 MG capsule, Take 81 mg by mouth in the morning., Disp: , Rfl: cholecalciferol (D3-5) 5,000 Units tablet, Take by mouth daily., Disp: , Rfl: coenzyme Q-10 100 MG capsule, Take 1 tablet by mouth in the morning., Disp: , Rfl: cyanocobalamin (Vitamin B-12) 1000 MCG tablet, Take 1,000 mcg by mouth in the morning., Disp: , Rfl: dofetilide (Tikosyn) 500 MCG capsule, TAKE 1 CAPSULE BY MOUTH IN THE MORNING AND 1 CAPSULE BEFORE BEDTIME, Disp: 180 capsule, Rfl: 0 KRILL OIL PO, Take by mouth daily., Disp: , Rfl: magnesium oxide (Mag-Ox) 400 MG tablet, Take 400 mg by mouth See administration instructions. 2 pills once a day, Disp: , Rfl: methIMAzole (Tapazole) 5 MG tablet, Take 1 tablet (5 mg) by mouth in the morning., Disp: 90 tablet, Rfl: 1 metoprolol tartrate (Lopressor) 25 MG tablet, Take 1 tablet (25 mg) by mouth 2 times daily. (Patient taking differently: Take 25 mg by mouth 2 times daily as needed.), Disp: 60 tablet, Rfl: 11 naproxen (Naprosyn) 250 MG tablet, Take 250 mg by mouth if needed for mild pain (1-3)., Disp: , Rfl: omega-3 (Fish Oil) 1000 MG capsule, Take 1,000 mg by mouth in the morning., Disp: , Rfl: TURMERIC PO, Take by mouth daily., Disp: , Rfl: Review of Systems: Review of Systems Constitutional: Positive for fatigue. Negative for activity change, chills, diaphoresis and fever. HENT: Negative. Negative for nosebleeds and trouble swallowing. Eyes: Negative. Negative for discharge and visual disturbance. Respiratory: Positive for shortness of breath. Negative for apnea, cough, chest tightness and wheezing. Cardiovascular: Positive for palpitations. Negative for chest pain and leg swelling. Gastrointestinal: Negative. Negative for abdominal distention, abdominal pain, blood in stool, diarrhea, nausea and vomiting. Endocrine: Negative. Negative for cold intolerance and heat intolerance. Genitourinary: Negative. Negative for hematuria. Musculoskeletal: Negative. Negative for gait problem and myalgias. Skin: Negative. Negative for color change and rash. Neurological: Positive for dizziness and light-headedness. Negative for seizures, syncope, facial asymmetry, speech difficulty, weakness, numbness and headaches. Hematological: Negative. Does not bruise/bleed easily. Psychiatric/Behavioral: Negative. Negative for dysphoric mood. Physical Examination: Vitals: Vitals: 06/28/23 0820 BP: 136/80 BP Location: Left arm Patient Position: Sitting BP Cuff Size: Adult Pulse: 62 SpO2: 99% Weight: (!) 341 lb (155 kg) Height: 6' 2 (1.88 m) Body mass index is 43.78 kg/m . Physical Exam Vitals reviewed. Constitutional: Appearance: Normal appearance. HENT: Head: Normocephalic. Right Ear: External ear normal. Left Ear: External ear normal. Nose: Nose normal. Mouth/Throat: Mouth: Mucous membranes are moist. Eyes: Pupils: Pupils are equal, round, and reactive to light. Cardiovascular: Rate and Rhythm: Normal rate and regular rhythm. Heart sounds: No murmur heard. Pulmonary: Breath sounds: No wheezing. Musculoskeletal: General: Normal range of motion. Right lower leg: No edema. Left lower leg: No edema. Skin: General: Skin is warm and dry. Coloration: Skin is not jaundiced. Neurological: General: No focal deficit present. Mental Status: He is alert. Motor: No weakness. Gait: Gait normal. Psychiatric: Mood and Affect: Mood normal. Behavior: Behavior normal. Thought Content: Thought content normal. Judgment: Judgment normal. Laboratory Tests: No results found for: WBC, HGB, HCT, MCV, PLT Lab Results Component Value Date GLUCOSE 92 07/29/2022 CALCIUM 9.2 07/29/2022 NA 139 07/29/2022 K 3.9 07/29/2022 CO2 28.0 07/29/2022 CL 106 07/29/2022 BUN 13 07/29/2022 CREATININE 0.80 07/29/2022 @LASTCMP@ No results found for: CHLPL, CHOL No results found for: TRIG No results found for: HDL No results found for: LDLCALC Assessment and Plan: Atrial fibrillation: Well treated with dofetilide up until the summer and has had frequent breakthroughs. He takes extra metoprolol. Today he is in sinus rhythm ECG demonstrates acceptable intervals for class III antiplatelet therapy. He asks regarding increasing dofetilide dose which is not feasible. He is too young for amiodarone. We discussed that he needs to lose weight, certainly easier said than done. He is very active. I recommended that if things continue on this path that he have adjunctive ablation continuing the dofetilide. We began to discuss the risk and benefits and the procedure itself. I asked him to consider visiting with his primary care physician to discuss potential treatment for stress and anxiety. If things do not improve in 4 to 6 weeks he will call us back and likely schedule the ablation. documented in this encounter [facility] 06-22-2023 Telephone encounter Note PC to pt x2 call picks up and then disconnects. I will print and mail lab order with note to pt [facility] 06-21-2023 Telephone encounter Note OV 01/3023 with EKG BMP 07/2022 pls call pt see if he ever got BMP done ordered in january? thanks [facility] 06-21-2023 Miscellaneous Notes OV 01/3023 with EKG BMP 07/2022 pls call pt see if he ever got BMP done ordered in january? thanks documented in this encounter [facility] 03-22-2023 Miscellaneous Notes PC to pt x2 call picks up and then disconnects. I will print and mail lab order with note to pt OV 01/3023 with EKG BMP 07/2022 pls call pt see if he ever got BMP done ordered in january? thanks documented in this encounter [facility] 11-25-2022 Telephone encounter Note Sent rx request to enterprise account manager [facility] 11-25-2022 Miscellaneous Notes Sent rx request to enterprise account manager Medication name: methamazole Medication dosage: 5 mg (Miligrams Monthly quantity needed: 90 How many day supply requestin days Medication route: oral (PO) Medication administration time(s): daily If taking medication PRN, reason for taking medication: N/A If this is a controlled substance do you receive this or any other controlled medication from any other doctor or facility: No Ordering provider: rolf Date of last office visit: 05/27/20 Date of next office visit: 03/01/23 Date of last refill: (see medication tab): 09/18/22 Updated/Validated preferred pharmacy: Yes Patient instructed to contact the pharmacy prior to picking up the medication: No documented in this encounter [facility] 11-25-2022 Telephone encounter Note Medication name: methamazole Medication dosage: 5 mg (Miligrams Monthly quantity needed: 90 How many day supply requestin days Medication route: oral (PO) Medication administration time(s): daily If taking medication PRN, reason for taking medication: N/A If this is a controlled substance do you receive this or any other controlled medication from any other doctor or facility: No Ordering provider: rolf Date of last office visit: 05/27/20 Date of next office visit: 03/01/23 Date of last refill: (see medication tab): 09/18/22 Updated/Validated preferred pharmacy: Yes Patient instructed to contact the pharmacy prior to picking up the medication: No [facility] Evaluation note No assessment inform ation available [facility] Work Phone: Evaluation note Diagnosis Paroxysmal atrial fibrillation (CMS/HCC) (HCC) Atrial fibrillation documented in this encounter [facility] note* Diagnosis Paroxysmal atrial fibrillation (HCC)- Primary Atrial fibrillation Typical atrial flutter (HCC) documented in this encounter [facility] note* Diagnosis 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 documented in this encounter [facility] note* Diagnosis Typical atrial flutter (HCC)- Primary Paroxysmal atrial fibrillation (HCC) Atrial fibrillation Paroxysmal atrial fibrillation (HCC)- Primary Atrial fibrillation Typical atrial flutter (HCC) Paroxysmal atrial fibrillation (HCC) Atrial fibrillation Typical atrial flutter (HCC) [facility] Diagnosis Typical atrial flutter (HCC)- Primary Paroxysmal atrial fibrillation (HCC) Atrial fibrillation Paroxysmal atrial fibrillation (HCC) Atrial fibrillation Typical atrial flutter (HCC) [facility] Diagnosis Paroxysmal atrial fibrillation (HCC)- Primary Atrial fibrillation Typical atrial flutter (HCC) [facility] Diagnosis Paroxysmal atrial fibrillation (HCC)- Primary Atrial fibrillation Typical atrial flutter (HCC) [facility] Diagnosis Graves disease- Primary 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 or storm [facility] Diagnosis Graves disease- Primary 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 or storm [facility] Diagnosis Paroxysmal atrial fibrillation (HCC)- Primary Atrial fibrillation Typical atrial flutter (HCC) Other chest pain- Primary [facility] Diagnosis Paroxysmal atrial fibrillation (HCC)- Primary Atrial fibrillation Typical atrial flutter (HCC) Typical atrial flutter (HCC)- Primary Other chest pain [facility] Diagnosis Paroxysmal atrial fibrillation (HCC)- Primary Atrial fibrillation Typical atrial flutter (HCC) Other chest pain [facility] Diagnosis Paroxysmal atrial fibrillation (HCC)- Primary Atrial fibrillation Typical atrial flutter (HCC) Typical atrial flutter (HCC) [facility] Diagnosis Paroxysmal atrial fibrillation (HCC)- Primary Atrial fibrillation Typical atrial flutter (HCC) Obstructive sleep apnea- Primary Obstructive sleep apnea (adult) (pediatric) Paroxysmal atrial fibrillation (HCC) Atrial fibrillation Typical atrial flutter (HCC) [facility] Diagnosis Paroxysmal atrial fibrillation (HCC)- Primary Atrial fibrillation Typical atrial flutter (HCC) Obstructive sleep apnea- Primary Obstructive sleep apnea (adult) (pediatric) Paroxysmal atrial fibrillation (HCC) Atrial fibrillation Typical atrial flutter (HCC) Graves disease- Primary 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 or storm documented in this encounter [facility] for visit Narrative* Imaging (Routine) - Closed Specialty Diagnoses / Procedures Referred By Contac t Referred To Contact Cardiology Diagnoses Other chest pain Procedures Stress echocardiogram (TTE) exercise with contrast, bubble, strain, and 3D PRN VT ECHO TTHRC R-T 2D W/WO M-MODE COMPLETE REST&ST VT ECHO TTHRC R-T 2D W/WO M-MODE REST&STRS CONT ECG VT DOPPLER ECHOCARD PULSE WAVE W/SPECTRAL DISPLAY VT DOP ECHOCARD COLOR FLOW VELOCITY MAPPING VT CV STRS TST XERS&/OR RX CONT ECG W/O I&R VT CV STRS TST XERS&/OR RX CONT ECG TRCG ONLY VT CV STRS TST XERS&/OR RX CONT ECG I&R ONLY Jeanette Dixon APRN - CNP [address] [place] [address] Phone: tel: fax: Referral ID Status Reason Start Date Expiration Date Visits Re quested Visits Authorized [id number] Closed 09/14/2024 09/14/2025 1 [facility] Cardiology (Routine) - Closed Specialty Diagnoses / Procedures Referred By Rowdy moon Referred To Contact Cardiology Diagnoses Typical atrial flutter (HCC) Procedures Cardiac holter monitor (8- 15 days) VT EXTERNAL ECG REC>48HR<7D REVIEW & INTERPRETATION VT EXTERNAL ECG REC>48HR<7D RECORDING VT EXTERNAL ECG REC>7D<15D RECORDING VT EXTERNAL ECG REC>7D<15D REVIEW & INTERPRETATION Jeanette Dixon APRN - CNP [address] [place] [address] Phone: tel: fax: Referral ID Status Reason Start Date Expiration Date Visits Re quested Visits Authorized [id number] Closed 09/14/2024 09/09/2025 1 1 [facility] Discharge Instructions * Discharge Instr - Activity* Mallorie Ambrosio APRN - CNP - 06/30/2019 10:02 AM EDT As tolerated * Discharge Instr - Diet* Mallorie Ambrosio APRN - CNP - 06/30/2019 10:02 AM EDT ? Good nutrition is important when healing from an illness, injury, or surgery. Follow any nutrition recommendations given to you during your hospital stay. ? If you were given an oral nutrition supplement while in the hospital, continue to take this supplement at home. You can take it with meals, in-between meals, and/or before bedtime. These supplements can be purchased at most local grocery stores, pharmacies, and chain [email or web address]. ? If you have any questions about your diet or nutrition, call the hospital and ask for the dietitian. * Attachments The following attachments cannot be sent through Care Everywhere. * dofetilide (Divehi) documented in this encounter History of Present Illness * Radha Rock RN - 06/30/2019 12:06 PM EDT Discharge instructions reviewed with pt. Pt waiting for meds from meds to beds. * Mallorie Middleton APRN - CNP - 06/29/2019 3:43 PM EDT EKG post DCC reviewed. QTc acceptable. Will continue tikosyn 500mcg dose for 5th dose tonight. Metoprolol discontinued due to bradycardia. * Mallorie Ambrosio APRN - CNP - 06/29/2019 9:42 AM EDT CARDIOLOGY PROGRESS NOTE Chart and interval events reviewed. Reason for Visit Persistent atrial fibrillation SUBJECTIVE: Jorgito Fraga states he feels about the same this AM. +Palpitations. SCHEDULED MEDICATIONS: apixaban 5 mg Oral BID sodium chloride flush 10 mL Intravenous 2 times per day aspirin 81 mg Oral Daily methIMAzole 5 mg Oral Daily metoprolol tartrate 25 mg Oral BID dofetilide 500 mcg Oral 2 times per day Principal Problem: Atrial fibrillation (HCC) Active Problems: Obstructive sleep apnea Resolved Problems: * No resolved hospital problems. * Review of Systems: Review of Systems Constitutional: Negative for chills, diaphoresis and fever. HENT: Negative for nosebleeds. Eyes: Negative for visual disturbance. Respiratory: Negative for cough, shortness of breath and wheezing. Cardiovascular: Positive for palpitations. Negative for chest pain and leg swelling. Gastrointestinal: Negative for abdominal pain, blood in stool, constipation, diarrhea, nausea and vomiting. Genitourinary: Negative for hematuria. Musculoskeletal: Negative for myalgias. Skin: Negative for rash. Neurological: Negative for dizziness and syncope. Hematological: Does not bruise/bleed easily. Psychiatric/Behavioral: Negative for dysphoric mood and suicidal ideas. Denies Depression VITAL SIGNS: Vitals: 06/28/19 1535 06/28/19 2011 06/29/19 0549 06/29/19 0739 BP: 136/84 134/70 101/75 117/68 Pulse: 100 92 77 86 Resp: 18 14 Temp: 97.6 F (36.4 C) 96.6 F (35.9 C) 96.7 F (35.9 C) 96.7 F (35.9 C) TempSrc: Temporal Temporal Temporal Temporal SpO2: 98% 96% 96% 95% Weight: Height: No intake or output data in the 24 hours ending 06/29/19 0956 Patient Vitals for the past 96 hrs (Last 3 readings): Weight 06/27/19 1906 (!) 324 lb 6.4 oz (147.1 kg) Physical Exam: Physical Exam Constitutional: He is oriented to person, place, and time. He appears well- developed and well-nourished. He is cooperative. HENT: Head: Normocephalic and atraumatic. Eyes: Conjunctivae are normal. Neck: Neck supple. No thyroid mass and no thyromegaly present. Cardiovascular: Normal heart sounds, intact distal pulses and normal pulses. An irregularly irregular rhythm present. Tachycardia present. No murmur heard. Pulmonary/Chest: Effort normal and breath sounds normal. No respiratory distress. He has no wheezes. He has no rales. He exhibits no tenderness. Abdominal: Soft. Bowel sounds are normal. He exhibits no distension. There is no hepatosplenomegaly. Musculoskeletal: Normal range of motion. Neurological: He is alert and oriented to person, place, and time. No cranial nerve deficit. Skin: Skin is warm, dry and intact. No cyanosis. Nails show no clubbing. Psychiatric: He has a normal mood and affect. His speech is normal and behavior is normal. Nursing note and vitals reviewed. Data: Scheduled Meds: Reviewed Continuous Infusions: CBC: Recent Labs 06/27/19 1840 WBC 12.1* HGB 14.2 HCT 40.7 PLT 295 BMP: Recent Labs 06/28/19 0349 06/29/19 0557 NA 138 139 K 4.4 4.4 CL 104 103 CO2 25 26 BUN 17 17 CREATININE 0.65 0.59 INR:No results for input(s): INR in the last 72 hours. No results for input(s): BNP in the last 72 hours. TSH: Lab Results Component Value Date TSH 4.454 06/27/2019 Cardiac Injury Profile: No results for input(s): CKTOTAL, CKMB, TROPONINI in the last 72 hours. Lipid Profile: No results found for: TRIG, HDL, LDLCALC, CHOL EKG: Atrial fibrillation with acceptable QT/QTc intervals Telemetry Reviewed: Atrial fibrillation with RVR Echo: See Report IMPRESSIONS/RECOMMENDATIONS: 1. Persistent atrial fibrillation: refractory to Flecainide. Now admitted for Dofetilide loading. Started on Dofetilide 500mcg/12 hours. QT/QTc intervals remain stable after his 3rd dose. Continue Metoprolol and Eliquis. Plan DCC today and monitor for a total of 6 doses. 2. CARMEN: newly diagnosed and compliant with his CPAP 3. HTN: Controlled on his current drug regimen but will watch closely. 4. Morbid obesity: Encourage a heart healthy weight reduction diet. He is c/o of the food/quantity allowed here in the hospital. 5. Graves disease:dx 2006 follows with Endocrinology. TSH 4.[address] Best 01/30/19.Recommended follow up 1 yr. Electronicallysigned by FRANCHESCA Max CNP on 06/29/2019 at 9:56 AM * Liya Loera DTR - 06/29/2019 9:19 AM EDT Nutrition rescreen completed. Chart reviewed. Patient NPO for a procedure. Patient to be monitored and followed by the diet central sterile supply technician. * Mitch Marvin MD - 06/27/2019 7:38 PM EDT Patient admitted for Tikosyn loading but no Tikosyn order in place. Discussed case with Chari Santos and Tikosyn is 500 mcg BID. Will start first dose tonight with standard ECG monitoring protocol. QTc on admission ECG okay. EP attending to assess in AM for any adjustment of dose. 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 Advance Directives and Living Will Power of Assembler Adjuster Latest Code Status on File Code Status Date Activated Date Inactivated Comments Full Code 06/28/2019 2:26 PM Full Code 06/27/2019 6:32 PM 06/28/2019 2:26 PM Documents on File Type Date Recorded 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 Advance Directives and Living Will Power of Assembler Adjuster Latest Code Status on File Code Status Date Activated Date Inactivated Comments Full Code 06/28/2019 2:26 PM 06/30/2019 3:12 PM Full Code 06/27/2019 6:32 PM 06/28/2019 2:26 PM Advance Directive Response Recorded Date/ Time Advance Directives No April 05 9 10:42am Living Will No April 05, 2019 1 0:42am Power of Assembler Adjuster No April 05, 2019 10:42am Advance Directive Response Recorded Date/ Time Advance Directives No April 05 9 9:42am Living Will No April 05, 2019 9 :42am Power of Assembler Adjuster No April 05, 2019 9:42am Latest Code Status on File Code Status Date Activated Date Inactivated Comments Full Code 12/02/2023 7:32 AM 12/02/2023 4:28 PM Latest Code Status on File Code Status Date Activated Date Inactivated Comments Full Code 12/02/2023 7:32 AM 12/02/2023 4:28 PM Date Activated Date Inactivated Comments 12/02/2023 7:32 AM 12/02/2023 4:28 PM Date Activated Date Inactivated Comments 12/02/2023 7:32 AM 12/02/2023 4:28 PM Reason for Referral Status Reason Specialty Diagnoses / Procedures Re ferred By Contact Referred To Contact Closed Cardiology Diagnoses Non-ischemic cardiomyopathy (HCC) Procedures Echo 2D Doppler Color Mallorie Ambrosio HISTOLOGIC AIDE [facility] [address] [place] [address] Specialty Diagnoses / Procedures Referred By Contac t Referred To Contact Ezra Gerber MD [address] [place] [address] Referral ID Status Reason Start Date Expiration Date Visits Re quested Visits Authorized [id number] Closed 1 1 Specialty Diagnoses / Procedures Referred By Contac t Referred To Contact Jeanette Dixon, HISTOLOGIC AIDE - [facility] [address] [place] [address] Referral ID Status Reason Start Date Expiration Date V isits Requested Visits Authorized [id number] Pending Review 1 1 Specialty Diagnoses / Procedures Referred By Contac t Referred To Contact Cardiology Diagnoses Typical atrial flutter (HCC) Procedures Stress echocardiogram (TTE) exercise with contrast, bubble, strain, and 3D PRN VT ECHO TTHRC R-T 2D W/WO M-MODE COMPLETE REST&ST VT ECHO TTHRC R-T 2D W/WO M-MODE REST&STRS CONT ECG VT DOPPLER ECHOCARD PULSE WAVE W/SPECTRAL DISPLAY VT DOP ECHOCARD COLOR FLOW VELOCITY MAPPING VT CV STRS TST XERS&/OR RX CONT ECG W/O I&R VT CV STRS TST XERS&/OR RX CONT ECG TRCG ONLY VT CV STRS TST XERS&/OR RX CONT ECG I&R ONLY Ezra Gerber MD [address] [place] [address] Referral ID Status Reason Start Date Expiration Date V isits Requested Visits Authorized [id number] Authorized 03/03/2024 03/03/2025 1 1 Specialty Diagnoses / Procedures Referred By Contac t Referred To Contact Cardiology Diagnoses Typical atrial flutter (HCC) Procedures Cardiac holter monitor (8- 15 days) VT EXTERNAL ECG REC>48HR<7D REVIEW & INTERPRETATION VT EXTERNAL ECG REC>48HR<7D RECORDING VT EXTERNAL ECG REC>7D<15D RECORDING VT EXTERNAL ECG REC>7D<15D REVIEW & INTERPRETATION Ezra Gerber MD [address] [place] [address] [facility] [address] [place] [address] Referral ID Status Reason Start Date Expiration Date V isits Requested Visits Authorized [id number] Authorized 03/03/2024 02/26/2025 1 1 Summary Purpose Family History No Family History Records Found Relationship Condition Age at Onset Recorded Date/T zaria father Diabetes mellitus Unknown Hypertension Unknown mother Diabetes mellitus Unknown grandmother Myocardial infarction Unknown Chief Complaint and Reason for Visit Chief Complaint UNSPECIFIED ATRIAL F IBRILLATION, HYPERLIPIDEMIA Additional Source Comments (unrecognized sect ion and content) No Status Records FoundNo Status Records FoundNo Status Records Found INFORMATION SOURCE (unrecogn ized section and content) DATE CREATED AUTHOR 06/26/2021 [facility] DATE CREATED AUTHOR AUTHOR'S ORGANIZ ATION 04/19/2025 [facility] DATE CREATED AUTHOR AUTHOR'S ORGANIZ ATION 05/23/2025 [facility] Goals (unrecognized section and content) Goals may be documented in a n alternate sectionGoals may be documented in an alternate sectionGoals may be documented in an alternate sectionGoals may be documented in an alternate section Reason for Visit (unrecogniz ed section and content) Reason Comments Med Refill Reason Comments Follow-up Reason Onset Date Comments Med Refill 09/15/2023 Dofetilide Reason Onset Date Comments Lab orders 09/20/2023 Reason Onset Date Comments thy stim immuno result 09/24/23 09/27/2023 Reason Onset Date Comments thyroid lab results 09/29/2023 Reason Comments New Patient Reason Comments Follow-up Hyperthyroidism Reason Onset Date Comments Med Refill 11/29/2023 Specialty Diagnoses / Procedures Referred By Contac t Referred To Contact Diagnoses Paroxysmal atrial fibrillation (HCC) Typical atrial flutter (HCC) Paroxysmal atrial fibrillation (HCC) [I48.0] Typical atrial flutter (HCC) [I48.3] Procedures Ablation a-fib paroxysmal Ezra Gerber MD [address] [place] [address] [facility] [address] [place] [phone] Referral ID Status Reason Start Date Expiration Date Visits Re quested Visits Authorized [id number] 1 1 Reason Onset Date Comments Med Management 12/10/2023 Eliquis Reason Comments 1 Month Follow Up Reason Onset Date Comments Cancelled Appointment 03/08/2024 Reason Comments 3 Month Follow Up Reason Onset Date Comments Request For Order(s) 06/08/2024 Reason Onset Date Comments Med Refill 06/27/2024 Reason Onset Date Comments Other 09/12/2024 Scheduling Reason Onset Date Comments Med Refill 11/25/2022 Reason Onset Date Comments Labs Only 12/21/2024 Reason Onset Date Comments Advice Only 02/02/2025 Reason Comments Graves' Disease Follow-up Care Teams (unrecognized sec tion and content) Insurance Follow Up Specialist Relationship Specialty Start Date End Date Luis M Gonzalez [address] [place] [address] PCP - General 01/30/19 Insurance Follow Up Specialist Relationship Specialty Start Date End Date Luis M Gonzalez [address] [place] [address] PCP - General 01/30/19 Insurance Follow Up Specialist Relationship Specialty Start Date End Date Luis M Gonzalez [address] [place] [address] PCP - General 01/30/19 Team Status: Active Member Role Status Dates Dr. Luis M Gonzalez MD Family Provider Active Dr. Luis M Gonzalez MD Primary Care Provider Active Team Status: Inactive Member Role Status Dates Dr. Luis M Gonzalez MD Primary Care Provider Active CHACORTA RIOS Attending Provider, Referring Provid er Active Insurance Follow Up Specialist Relationship Specialty Start Date End Date Luis M Gonzalez [address] [place] [address] PCP - General 01/30/19 Insurance Follow Up Specialist Relationship Specialty Start Date End Date Curry Banda [address] [address] [place] [address] PCP - General Family Medicine 10/22/23 Insurance Follow Up Specialist Relationship Specialty Start Date End Date Curry Banda [address] [address] [place] [address] PCP - General Family Medicine 10/22/23 Insurance Follow Up Specialist Relationship Specialty Start Date End Date Curry Banda [address] [place] [address] PCP - General Family Medicine 10/22/23 Insurance Follow Up Specialist Relationship Specialty Start Date End Date Curry Banda [address] [place] [address] PCP - General Family Medicine 10/22/23 Team Status: Active Member Role Status Dates Dr. Luis M Gonzalez MD Family Provider Active No Primary Care Physician Primary Care Provider Active Team Status: Active Member Role Status Dates No Primary Care Physician Primary Care Provider Active CHACORTA RIOS Attending Provider Active Team Status: Inactive Member Role Status Dates No Primary Care Physician Primary Care Provider Active Dr. Curry Banda MD Attending Provider Active Insurance Follow Up Specialist Relationship Specialty Start Date End Date Curry Banda [address] [place] [address] PCP - General Family Medicine 10/22/23 Team Status: Inactive Member Role Status Dates No Primary Care Physician Primary Care Provider Active CHACORTA RIOS Attending Provider Active Insurance Follow Up Specialist Relationship Specialty Start Date End Date Curry Banda [address] [place] [address] PCP - General Family Medicine 10/22/23 Insurance Follow Up Specialist Relationship Specialty Start Date End Date Curry Banda [address] [place] [address] PCP - General Family Medicine 10/22/23 Insurance Follow Up Specialist Relationship Specialty Start Date End Date Curry Banda [address] [place] [address] PCP - General Family Medicine 10/22/23 Insurance Follow Up Specialist Relationship Specialty Start Date End Date Curry Banda [address] [place] [address] PCP - General Family Medicine 10/22/23 Insurance Follow Up Specialist Relationship Specialty Start Date End Date Curry Banda [address] [place] [address] PCP - General Family Medicine 10/22/23 Insurance Follow Up Specialist Relationship Specialty Start Date End Date Curry Banda [address] [place] [address] PCP - General Family Medicine 10/22/23 Insurance Follow Up Specialist Relationship Specialty Start Date End Date Curry Banda [address] [place] [address] PCP - General Family Medicine 10/22/23 Insurance Follow Up Specialist Relationship Specialty Start Date End Date Curry Banda [address] [place] [address] PCP - General Family Medicine 10/22/23 Insurance Follow Up Specialist Relationship Specialty Start Date End Date Curry Banda [address] [facility] [address] [place] [address] PCP - General Family Medicine 10/22/23 Insurance Follow Up Specialist Relationship Specialty Start Date End Date [facility] [address] [facility] [address] [place] [address] PCP - General Family Medicine 10/22/23 Insurance Follow Up Specialist Relationship Specialty Start Date End Date Luis M Gonzalez [address] [facility] [place] [phone] PCP - General 01/30/19 Insurance Follow Up Specialist Relationship Specialty Start Date End Date [facility]anda [address] [facility] [address] [place] [address] PCP - General Family Medicine 10/22/23 Insurance Follow Up Specialist Relationship Specialty Start Date End Date Curry Banda [address] [facility] [address] [place] [address] PCP - General Family Medicine 10/22/23 Insurance Follow Up Specialist Relationship Specialty Start Date End Date Curry Banda [address] [facility] [address] [place] [address] PCP - General Family Medicine 10/22/23 Insurance Follow Up Specialist Relationship Specialty Start Date End Date Curry Banda [address] [facility] [address] [place] [address] PCP - General Family Medicine 10/22/23 Scheduled Active and Recently Administ ered Medications (unrecognized section and content) Medication Order 11/30/2023 12/01/2023 12/02/2023 apixaban (Eliquis) tablet 5 mg 5 mg, Oral, Once, On Yvette 12/02/23 at 1100, For 1 dose, PLEASE GIVE IN PACU ONCE PATIENT AWAKE AND ABLE TO TAKE PO 1058 (MAR Hold - Pro vider: Automatic Transfer Provider - Reason: Patient not available)1100 (Dose Auto Held - Provider: Automatic Transfer Provider)1154 (Canceled Entry - Provider: Automatic Discharge Provider - Comment: Automatically canceled at discontinue of medication order)1628 ([facility] Unhold - Provider: Automatic Discharge Provider) sodium chloride 0.9% (NS) flush 5-40 mL 5-40 mL, IntraVENous, Every 12 hours, First dose on Yvette 12/02/23 at 1100, Recovery & On Unit, For Line Patency: Peripheral IV = 5 mL; Midline or Central Line = 10 mL/lumen. If following IV push medication, administer flush at same rate as the IV push. Flush volume is determined by type of infusion therapy being given. For non-viscous solutions use: Peripheral IV = 5 mL Midline or Central Line = 10 mL/lumen For viscous solutions (i.e. blood components, parenteral nutrition, contrast media, or after obtaining blood sample) use: Peripheral IV = 10 mL Midline or Central Line = 20 mL/lumen 1058 (MAR Hold - Pro vider: Automatic Transfer Provider - Reason: Patient not available)1100 (Dose Auto Held - Provider: Automatic Transfer Provider)1628 ([facility] Unhold - Provider: Automatic Discharge Provider) PRN Medication Order 11/30/2023 12/01/2023 12/02/2023 acetaminophen (Tylenol) tablet 650 mg 650 mg, Oral, Every 4 hours PRN, mild pain (1-3), Fever > 100.5 F (38 C), Starting on Yvette 12/02/23 at 1051, Recovery & On Unit, Maximum dose of acetaminophen is 4000 mg from all sources in 24 hours. 1058 (MAR Hold - Pro vider: Automatic Transfer Provider - Reason: Patient not available)1628 ([facility] Unhold - Provider: Automatic Discharge Provider) bupivacaine PF (Marcaine) 0.5 % injection (CANCELED) As needed, Starting on Yvette 12/02/23 at 1045, Intraprocedure 1045 (Given - Provid er: Ezra Gerber MD) lidocaine-EPINEPHrine (Xylocaine W/EPI) 1 %-1:[id number] injection (CANCELED) As needed, Starting on Yvette 12/02/23 at 1045, Intraprocedure 1045 (Given - Provid er: Ezra Gerber MD) sodium chloride 0.9 % infusion (CANCELED) 5-250 mL/hr, IntraVENous, PRN, if patient receiving piggyback infusions and maintenance fluids are not ordered OR KVO fluids to protect IV site / prevent frequent line interruptions / long duration, Starting on Yvette 12/02/23 at 0732, Preprocedure, For piggyback infusion, administer at same rate as piggyback for a total of 25 mL. Enter 25 mL into dose field and piggyback rate into rate field of order. If piggyback is infusing at a rate less than 100 mL/hr, enter 25 mL into dose field and 100 mL/hr into rate field of order. For KVO fluids, enter rate of 20 mL/hr or less into rate field of order. 0914 (New Bag - Prov ider: FRANCHESCA Baeza CRNA)1104 (Stopped - Provider: FRANCHESCA Baeza CRNA) sodium chloride 0.9 % infusion 5-250 mL/hr, IntraVENous, PRN, if patient receiving piggyback infusions and maintenance fluids are not ordered OR KVO fluids to protect IV site / prevent frequent line interruptions / long duration, Starting on Yvette 12/02/23 at 1051, Recovery & On Unit, For piggyback infusion, administer at same rate as piggyback for a total of 25 mL. Enter 25 mL into dose field and piggyback rate into rate field of order. If piggyback is infusing at a rate less than 100 mL/hr, enter 25 mL into dose field and 100 mL/hr into rate field of order. For KVO fluids, enter rate of 20 mL/hr or less into rate field of order. 1058 (JAN Hold - Pro vider: Automatic Transfer Provider - Reason: Patient not available)1628 ([facility]AN Unhold - Provider: Automatic Discharge Provider) sodium chloride 0.9% (NS) flush 5-40 mL 5-40 mL, IntraVENous, PRN, line care, After every IV line use, Starting on Yvette 1/11/24 at 1051, Recovery & On Unit, For Line Patency: Peripheral IV = 5 mL; Midline or Central Line = 10 mL/lumen. If following IV push medication, administer flush at same rate as the IV push. Flush volume is determined by type of infusion therapy being given. For non-viscous solutions use: Peripheral IV = 5 mL Midline or Central Line = 10 mL/lumen For viscous solutions (i.e. blood components, parenteral nutrition, contrast media, or after obtaining blood sample) use: Peripheral IV = 10 mL Midline or Central Line = 20 mL/lumen 1058 (JAN Hold - Pro vider: Automatic Transfer Provider - Reason: Patient not available)1628 ([facility] Unhold - Provider: Automatic Discharge Provider) FOR RECORDS PERTAINING TO PATIENTS WHO ARE OR HAVE BEEN ENROLLED IN A CHEMICAL DEPENDENCY/SUBSTANCEABUSE PROGRAM, SOME INFORMATION MAY BE OMITTED. This clinical summary was aggregated from multiple sources. Caution should be exercised in using it in the provision of clinical care. This summary normalizes information from multiple sources, and as a consequence, information in this document may materially change the coding, format and clinical context of patient data. In addition, data may be omitted in some cases. CLINICAL DECISIONS SHOULD BE BASED ON THE PRIMARY CLINICAL RECORDS. [employer] [facility]. provides no warranty or guarantee of the accuracy or completeness of information in this document.
[2025-05-26 11:45] LABS: AST(SGOT) 20 U/L (<=37); Alanine Aminotransfer ALT/SGPT 24 U/L (<=46); Albumin, Serum 3.9 g/dL (3.5-5.0); Alkaline Phosphatase 59 U/L (40-129); Bilirubin, Direct 0.32 mg/dL (0.00-0.30); Globulin 2.6 g/dL (2.2-4.2)
[2025-05-26 12:27] LABS: Free T3 2.8 pg/mL (2.18-3.98)
== END 2025-05-26 23:59 | disposition home or self-care (01) ==
LOC: LAB 11:02
PROVIDERS: PCP Family Medicine; Referring Provider Internal Medicine Endocrinology, Diabetes & Metabolism; Visit Provider Internal Medicine Endocrinology, Diabetes & Metabolism
DX: Z00.00 Encounter for general adult medical examination without abnormal findings (principal)
CPT/HCPCS: 36415; 80076; 84439; 84443; 84481

== ENCOUNTER → 2025-07-07 | Outpatient (CLI) | payer OTHER, SELFPAY ==
--- OUTSIDE RECORDS SUMMARY | 2025-07-07 10:46 | XMS RPT_ITS | CCD ---
Author Organization [facility] CliniSyin Care Team Providers Care Correction Worker Name Role Phone Luis M Gonzalez Primary Care Provider [phone] Curry Banda Primary Care Provider [phone] Luis M Gonzalez Primary Care Provider Solo COLEY, Dr. Arana Primary Care Provider [phone] Dr. Curry Banda MD Referring Provider [phone] Alvina DRAWER LINER-C, Paulina Attending Provider Dr. Fernando Garcia MD Attending Provider Dr. Fernando Garcia MD Referring Provider Paulina Tinsley Attending Unavailable Banda, Curry Referring Unavailable Banda, Curry Primary Care Unavailable Banda, Curry Attending Unavailable Banda, Curry Referring Unavailable Banda, Curry Primary Care Unavailable Banda, Curry Attending Unavailable Banda, Curry Referring Unavailable Banda, Curry Primary Care Unavailable KONTAROJOSUÉ SANTA Attending Unavailable SHEYROBILLY SANTAGA Referring Unavailable Banda, Curry Primary Care Unavailable HELIO, JOSUÉ Consulting Unavailable Fernando Garcia Attending Unavailable Fernando Garcia Referring Unavailable Banda, Curry Primary Care Unavailable Banda, Curry Attending Unavailable Banda, Curry Referring Unavailable Banda, Curry Primary Care Unavailable KONTAROVICH, JOSUÉ Consulting Unavailable FERNANDO GARCIA Attending Unavailable BANDA, CURRY Primary Care Unavailable JEANETTE DIXON Attending Unavailable JEANETTE DIXON Referring Unavailable BANDA, CURRY Primary Care Unavailable JEANETTE DIXON Attending Unavailable JANETH DIXONISTEN Referring Unavailable BANDA, CURRY Primary Care Unavailable JEANETTE DIXON Attending Unavailable BANDA, CURRY Primary Care Unavailable Medications Current Medications Medication Drug Class(es) Dates Sig (Normalized) Sig (Original) aspirin 81 mg delayed release oral tablet (20 sources) Platelet Aggregation Inhibitor, Nonsteroidal Anti-inflammatory Drug Start: 02-28-2019 take 1 tablet by mouth once daily Aspirin (Adult Aspirin Regimen) 81 mg tablet,delayed release (DR/EC) Active 81 mg PO DAILY February 28, 2019 12:00am Start: 10-09-2013 End: 12-02-2018 take 1 tablet by mouth once daily Aspirin 81 MG tablet,chewable Discontinued 81 mg PO DAILY October 09, 2013 1:00am December 02, 2018 5:31pm End: 10-22-2023 take 1 capsule by mouth [...] 1 tablet by mouth daily 0 Active coenzyme Q10 (CoQ-10) (1 source) Start: 04-13-2025 coenzyme Q10 (CoQ-10) Active PO daily April 13, 2025 12:00am docosahexaenoic acid 120 mg / eicosapentaenoic acid 180 mg oral capsule (20 sources) take 1 capsule by mouth in the morning omega-3 (Fish Oil) 1000 MG capsule Take 1,000 mg by mouth in the morning. Active dofetilide 0.5 mg oral capsule (20 sources) Antiarrhythmic Start: 10-12-2019 End: 06-11-2025 take 1 capsule by mouth twice daily dofetilide (Tikosyn) 500 MCG capsule Take 1 capsule by mouth twice daily 180 capsule 06/11/2025 Active Start: 07-17-2019 take 1 capsule by mo ut every twelve hours dofetilide (TIKOSYN) 500 MCG capsule Take 1 capsule by mouth every 12 hours 180 capsule 0 07/17/2019 Active Start: 06-30-2019 take 1 capsule by mo ut every twelve hours dofetilide (TIKOSYN) 500 MCG capsule Take 1 capsule by mouth every 12 hours 60 capsule 3 06/30/2019 Active Start: 06-27-2019 dofetilide (TI KOSYN) capsule 500 mcg [id number]-[id number]-UTY C- MN PO (1 source) GLUCOSAMINE-DEMETRIS DROIT-VIT C-MN PO Take by mouth daily. 0 Active krill oil (1 source) Start: 04-13-2025 krill oil Active PO daily 2024 12:00am KRILL OIL PO (20 sources) KRILL OIL PO Dl e by mouth daily. Active KRILL OIL PO Dl e by mouth daily. 0 Active Magnesium glycinate (1 source) Start: 04-13-2025 magnesium glyc inate Active PO daily April 13, 2025 12:00am magnesium hydroxide 80 mg/ml oral suspension (1 [...] (20 sources) Thyroid Hormone Synthesis Inhibitor Start: 06-25-2025 methIMAzole (Tapazol e) 5 MG tablet Indications: Graves disease TAKE ONE-HALF (1/2) TABLET EVERY MORNING 45 tablet 3 06/25/2025 Active Start: 02-17-2024 take 2.5 mg by mouth once cale y Methimazole 5 mg tablet Active 2.5 mg PO DAILY February 17, 2024 11:13am Start: 10-28-2023 End: 06-27-2025 take 0.5 tablet by mouth once daily in the morning methIMAzole (Tapazole) 5 MG tablet Indications: Graves disease Take 0.5 tablets (2.5 mg) by mouth every morning. 45 tablet 3 06/27/2024 06/25/2025 Discontinued Start: 10-09-2013 End: 02-17-2024 take 1 tablet by mouth once daily Methimazole 5 MG tablet Discontinued 5 mg PO DAILY October 09, 2013 1:00am February 17, 2024 11:13am metoprolol tartrate 25 mg oral tablet (20 sources) beta-Adrenergic Travis Start: 11-04-2022 End: 04-13-2025 take 1 tablet by mouth twice daily metoprolol tartrate (Lopressor) 25 MG tablet Take 1 tablet (25 mg) by mouth 2 times daily. 60 tablet 5 11/29/2023 Active Start: 06-27-2019 End: 06-29-2019 metoprolol tartrate (LOPRESS OR) tablet 25 mg Start: 04-18-2019 End: 02-17-2024 take 1 tablet by mouth twice daily Metoprolol Tartrate 75 mg tablet Discontinued 75 mg PO TWICE A DAY 30 April 19, 2019 10:42am February 17, 2024 11:12am Start: 07-29-2018 End: 04-18-2019 take 1 tablet by mouth twice daily Metoprolol Tartrate 50 mg tablet Discontinued 50 mg PO TWICE A DAY 60 July 29, 2018 12:00am April 18, 2019 1:39pm End: 06-30-2019 metoprolol tartrate (LOPRESS OR) 50 MG tablet Take 25 mg by mouth 2 times daily 0 06/30/2019 Discontinued (Stop Taking at Discharge) naproxen 250 mg oral tablet (20 sources) Nonsteroidal Anti-inflammatory Drug naproxen (Naprosyn) 250 MG tablet Take 250 mg by mouth if needed for mild pain (1-3). Active omega-3 acid ethyl esters (intermediate) 1000 mg oral capsule (2 sources) take 1 capsule by mouth once daily [place]-3 Fatty Acids (FISH OIL) 1000 MG CAPS Take 1,000 mg by mouth daily 0 Active omega-3 fatty acids (Fish Oil) (1 source) Start: omega-3 fatty acids (Fish Oil) Active PO daily April 13, 2025 12:00am Turmeric extract (20 sources) TURMERIC PO Take [...] 50 mcg by mouth daily 0 Active Vitamin B Complex (1 source) Start: 04-13-2025 vitamin B comp dottie (B Complex Super) Active PO daily April 13, 2025 12:00am vitamin e 450 mg oral capsule (20 sources) take 1 capsule by mouth in the morning alpha tocopherol (Vitamin E) [...] Apixaban (Eliquis) 5 mg tablet Discontinued 5 mg PO TWICE A DAY 90 3 July 21, 2019 8:05am July 04, 2020 2:14pm ciprofloxacin 500 mg oral tablet (5 sources) Quinolone Antimicrobial Start: 10-11-2013 End: 12-01-2017 Ciprofloxacin Hcl 500 MG tablet Discontinued 750 mg PO TWICE A DAY 10 October 11, 2013 1:00am December 01, 2017 9:34pm Start: 10-11-2013 End: 12-01-2017 take 750 mg by mouth twice daily Ciprofloxacin Hcl Discontinued 750 MG PO TWICE A DAY October 11, 2013 12:00am December 01, 2017 8:34pm clopidogrel 75 mg oral tablet (10 sources) P2Y12 Platelet Inhibitor Start: 04-04-2019 End: 05-12-2019 take 1 tablet by mouth once daily Clopidogrel 75 MG tablet Discontinued 75 mg PO DAILY April 04, 2019 12:00am May 12, 2019 8:37am Start: 02-28-2019 End: 03-13-2019 take 1 tablet by mouth once daily Clopidogrel (Plavix) 75 mg tablet Discontinued 75 mg PO DAILY 30 February 28, 2019 12:00am March 13, 2019 4:00pm flecainide acetate 150 mg oral tablet (15 sources) Antiarrhythmic Start: 12-26-2018 End: 05-12-2019 take 1 tablet by mouth every twelve hours Flecainide 150 mg tablet Discontinued 150 mg PO Q12H 60 April 19, 2019 9:47am May 12, 2019 8:37am Start: 12-02-2018 End: 12-26-2018 take 1 tablet by mouth every twelve hours Flecainide 100 mg tablet Discontinued 100 mg PO Q12H 60 December 02, 2018 1:00am December 26, 2018 6:00pm oxyCODONE hydrochloride 5 mg oral tablet (5 sources) Opioid Agonist Start: 10-11-2013 End: 12-01-2017 take 2 tablets by mouth every four hours as needed for pain Oxycodone 5 MG tablet Discontinued 10 mg PO EVERY 4 HOURS NEEDED as needed for Pain October 11, 2013 1:00am December 01, 2017 9:33pm Start: 10-11-2013 End: 12-01-2017 take 10 mg [...] te Episodic/Chronic Cardiac and circulatory congenital anomalies (5 sources) Patent foramen ovale; Translations: [Atrial septal defect] 04-05-2019 Chronic Comment on above: with bidirectional s hunting per ESTHER Cardiac dysrhythmias (20 sources) Atrial fibrillation; Translations: [Unspecified atrial fibrillation] Onset: 02-06-2017 06-28-2019 Chronic Disorders of lipid metabolism (20 sources) Hyperlipidemia; Translations: [Hyperlipidemia, unspecified] Onset: 01-01-2016 09-17-2022 Chronic Other gastrointestinal disorders (20 sources) Irritable bowel syndrome with diarrhea; Translations: [Irritable bowel syndrome with diarrhea] Onset: 09-27-2015 09-17-2022 Chronic Other infections; including parasitic (5 sources) History of sepsis; Translations: [Personal history of other infectious and parasitic diseases] 01-04-2020 Episodic Other lower respiratory disease (5 sources) H/O: pneumonia; Translations: [Personal history of pneumonia (recurrent)] 01-04-2020 Episodic Other nutritional; endocrine; and metabolic disorders (1 source) Morbid obesity; Translations: [Morbid (severe) obesity due to excess calories] Chronic Other nutritional; endocrine; and metabolic disorders (20 sources) Obesity; Translations: [Obesity, unspecified] Onset: 01-02-2016 09-17-2022 Chronic Other nutritional; endocrine; and metabolic disorders (5 sources) Obesity caused by energy imbalance; Translations: [Morbid (severe) obesity due to excess calories] 04-05-2019 Chronic [place]-; endo-; and myocarditis; cardiomyopathy (except that caused by tuberculosis or sexually transmitted disease) (6 sources) Cardiomyopathy; Translations: [Cardiomyopathy associated with another disorder] 04-05-2019 Chronic Residual codes; unclassified (20 sources) Obstructive sleep apnea syndrome; Translations: [Obstructive sleep apnea (adult) (pediatric)] Onset: 06-28-2019 06-28-2019 Chronic Comment on above: AHI 45 on BiPAP 21/1 7 cmH2O with residual AHI of 1.9 Residual codes; unclassified (5 sources) Hypersomnia; Translations: [Hypersomnia, unspecified] 01-04-2020 Chronic Residual codes; unclassified (5 sources) History of operative procedure on foot; Translations: [Other specified postprocedural states] 01-04-2020 Episodic Comment on above: sepsis Substance-related disorders (5 sources) Nicotine dependence; Translations: [Nicotine dependence, unspecified, uncomplicated] 04-05-2019 Chronic Thyroid disorders (20 sources) Hyperthyroidism; Translations: [Thyrotoxicosis, unspecified without thyrotoxic crisis or storm] Onset: 12-05-2010 09-17-2022 Chronic Past or Other Problems Problem Classification Problem Date Documented Date Episodic/Chronic Diabetes mellitus without complication (20 sources) Impaired fasting glycemia; Translations: [Impaired fasting glucose] Onset: 01-01-2016 09-17-2022 Episodic Nonspecific chest pain (14 sources) Chest pain; Translations: [Chest pain, unspecified] [...] Onset: 01-01-2016 09-17-2022 Episodic Residual codes; unclassified (5 sources) History of cardioversion; Translations: [Other specified postprocedural states] Onset: 04-06-2019 01-04-2020 Episodic Residual codes; unclassified (5 sources) History of cardiac catheterization; Translations: [Other specified postprocedural states] Onset: 03-06-2019 01-04-2020 Episodic Results Test Name Value Interpretation Reference Range Facility [facility] 06-11-2025 KM CMP-12/16 EKG-12/16 Normal [facility] Bilirubin directOrdered By: Fernando Garcia on 05-26-2025 Bilirubin.direct [Mass/Vol] 0.32 mg/dL High 0.00-0.30 [facility] Bilirubin, totalOrdered By: Fernando Garcia on 05-26-2025 Bilirubin [Mass/Vol] 0.92 mg/dL 0.00-1.30 [facility] Free T3on 05-26-2025 Free T3 [Mass/Vol] 2.8 pg/mL Normal 2.18-3.98 [facility] Comment on above: Performed By: #### L 506.0400, L500.3400, L501.9520, L501.45721 #### [facility] [address] [place], [address] Free C2Ewffwtd By: Fernando campbell on 05-26-2025 Free T3 [Mass/Vol] 2.8 pg/mL 2.18-3.98 [facility] - Chemistry and C hemistry - challengeOrdered By: Fernando Garcia on 05-26-2025 AST [Catalytic activity/Vol] 20 U/L <38 [facility] Liver Profileon 05-26-2025 Albumin [Mass/Vol] 3.9 g/dL Normal 3.5-5.0 [facility] Comment on above: Performed By: #### L 506.0400, L500.3400, L501.9520, L501.76856 #### [facility] [address] [place], [address] ALK PHOS 59 U/L Normal 40-129 [facility] Comment on above: Performed By: #### L 506.0400, L500.3400, L501.9520, L501.42287 #### [facility] [address] [place], [address] ALT [Catalytic activity/Vol] 24 U/L Normal <=46 [facility] Comment on above: Performed By: #### L 506.0400, L500.3400, L501.9520, L501.35367 #### [facility] [address] [place], [address] AST [Catalytic activity/Vol] 20 U/L Normal <=37 [facility] Comment on above: Performed By: #### L 506.0400, L500.3400, L501.9520, L501.87165 #### [facility] [address] [place], [address] Bilirubin [Mass/Vol] 0.92 mg/dL Normal 0.00-1.30 [facility] Comment on above: Performed By: #### L 506.0400, L500.3400, L501.9520, L501.62346 #### [facility] [address] [place], [address] Bilirubin.direct [Mass/Vol] 0.32 mg/dL High 0.00-0.30 [facility] Comment on above: Performed By: #### L 506.0400, L500.3400, L501.9520, L501.57267 #### [facility] [address] [place], [address] Globulin (S) [Mass/Vol] 2.6 g/dL Normal 2.2-4.2 [facility] Comment on above: Performed By: #### L 506.0400, L500.3400, L501.9520, L501.95016 #### [facility] [address] [place], [address] T PROT 6.5 g/dL Normal 5.9-8.4 [facility] Comment on above: Performed By: #### L 506.0400, L500.3400, L501.9520, L501.99449 #### [facility] [address] [place], [address] Serum globulin measurementOr dered By: Fernando Garcia on 05-26-2025 Globulin (S) [Mass/Vol] 2.6 g/dL 2.2-4.2 [facility] Serum or plasma alanine cali otransferase (ALT) measurementOrdered By: Fernando Garcia on 05-26-2025 ALT [Catalytic activity/Vol] 24 U/L <47 [facility] Serum or plasma albumin franck urement (mass/volume)Ordered By: Fernando Garcia on 05-26-2025 Albumin [Mass/Vol] 3.9 g/dL 3.5-5.0 [facility] Serum or plasma alkaline kristen sphatase measurementOrdered By: Fernando Garcia on 05-26-2025 ALP [Catalytic activity/Vol] 59 U/L 40-129 [facility] T4 Free Directon 05-26-2025 T4 FREE DIRECT 1.00 ng/dL Normal 0.76-1.46 [facility] Comment on above: Performed By: #### L 506.0400, L500.3400, L501.9520, L501.91285 #### [facility] [address] [place], [place], [address] T4 freeOrdered By: Fernando campbell on 05-26-2025 Free T4 [Mass/Vol] 1.00 ng/dL 0.76-1.46 [facility] TSH DL <= 0.005 mIU/L QnOrde red By: Fernando Garcia on 05-26-2025 TSH Qn 1.660 uIU/mL 0.300-4.200 [facility] Thyroid Stim Hormone (TSH)on 05-26-2025 TSH 1.660 uIU/mL Normal 0.300-4.200 [facility] Comment on above: Performed By: #### L 506.0400, L500.3400, L501.9520, L501.48547 #### [facility] [address] [place], [place], [address] Total proteinOrdered By: Wilson Garcia on 05-26-2025 Protein [Mass/Vol] 6.5 g/dL 5.9-8.4 [facility] Office Visiton 05-21-2025 Follow-up visit [id number] FragaJorgito 1965 M Date Provider Department Center 05/21/2025 10243-KONYRFERNANDO [facility] None Family History Problem Relation Age [...] Father's Sister Mother's Brother Alive Level of Service:20500 [place] OFFICE/OUTPATIENT ESTABLISHED MOD MDM 30 MIN Reason for Visit and Comments: Graves' Disease [141] Follow-up [762490] [facility] Progress Noteon 05-21-2025 Progress Note . Visit [...] as well (more content not included)... Normal [facility] Pulmonary Visit Reporton Pulmonary Visit Report [facility] [place] [address] [place], [place] [id number] OFFICE VISIT Date of Service: 04/13/25 MR#: [id number] Acct: [id number] Name: JORGITO FRAGA Rep #: [id number] 1 : 1965 Provider: KIET Tinsley Age/Sex: 59/M Location: [facility].PMW Status: Signed Assessment and Plan Assessment and [...] loss. Plan This note was generated with iCurrent dictation software. It may contain incorrect words, [...] Reasons: 1 Y FU Chief Complaint: CARMEN Black Puller Required: No DME Vendor: Rashida Accompanied by: [...] you fallen in the past year?: Yes [facility] Medical History Atrial fibrillation History of pneumonia History of sepsis Hypersomnia, unspecified Nicotine dependence Patent foramen ovale Morbid (severe) obesity due to excess calories Hyperthyroidism Paroxysmal atrial fibrillation Surgical History History of left heart catheterization (0 (more content not included)... [facility] 36on 02-08-2025 36 PC to patient's spouse and gave information, will follow up with PCP for other recommendations and will touch base with names of products if she finds any others [facility] 36 Pt's spouse lvm she received your vm but was able to get all of the information. Pt's spouse is asking for a call back [facility] 36 Pt spouse calling to check status of pt taking restful sleep supplement [facility] 36on 02-02-2025 36 Pt's spouse calling regarding restful sleep all natural sleep medication. Pt's spouse is asking if this will be ok for pt to take the medication [facility] 36on 12-22-2024 36 Reviewed labs, will discuss at next visit [facility] CBC W/Diff, Automatedon 11-23 Absolute Lymph 2.66 X10 3/uL Normal 0.83-4.51 [facility] Comment on above: Performed By: #### L 506.0400, L500.3400, L501.9520, L501.56260 #### [facility] [address] [place], [address] Absolute Neut 5.9 X10 3/uL Normal 2.0-7.7 [facility] Comment on above: Performed By: #### L 506.0400, L500.3400, L501.9520, L501.97765 #### [facility] [address] [place], [address] Basophils/100 WBC (Bld) 0.9 % Normal 0-1 [facility] Comment on above: Performed By: #### L 506.0400, L500.3400, L501.9520, L501.83621 #### [facility] [address] [place], [address] Eosinophils/100 WBC (Bld) 1.5 % Normal 0-5 [facility] Comment on above: Performed By: #### L 506.0400, L500.3400, L501.9520, L501.48648 #### [facility] [address] [place], [address] Erythrocyte distribution width (RBC) [Ratio] 12.9 % Normal 11.6-14.6 [facility] Comment on above: Performed By: #### L 506.0400, L500.3400, L501.9520, L501.74866 #### [facility] [address] [place], [address] Hematocrit (Bld) [Volume fraction] 43.7 % Normal 40-54 [facility] Comment on above: Performed By: #### L 506.0400, L500.3400, L501.9520, L501.87104 #### [facility] [address] [place], [address] Hemoglobin (Bld) [Mass/Vol] 14.8 g/dL Normal 13.0-16.5 [facility] Comment on above: Performed By: #### L 506.0400, L500.3400, L501.9520, L501.64505 #### [facility] [address] [place], [address] IG% 0.200 Normal 0.0-0.9 [facility] Comment on above: Result Comment: IG% - Immature Granulocytes (promyelocytes, myelocytes and metamyelocytes) > 1% indicates that a LEFT SHIFT is Present. Performed By: #### L 506.0400, L500.3400, L501.9520, L501.81082 #### [facility] [address] [place], [address] Lymphocytes/100 WBC (Bld) 28.4 % Normal 19-41 [facility] Comment on above: Performed By: #### L 506.0400, L500.3400, L501.9520, L501.97096 #### [facility] [address] [place], [address] MCH (RBC) [Entitic mass] 28.5 pg Normal 27.0-32.0 [facility] Comment on above: Performed By: #### L 506.0400, L500.3400, L501.9520, L501.11448 #### [facility] [address] [place], [address] MCHC (RBC) [Mass/Vol] 33.9 g/dL Normal 32-36 [facility] Comment on above: Performed By: #### L 506.0400, L500.3400, L501.9520, L501.80656 #### [facility] [address] [place], [address] MCV (RBC) [Entitic vol] 84.2 fL Normal 80-94 [facility] Comment on above: Performed By: #### L 506.0400, L500.3400, L501.9520, L501.81527 #### [facility] [address] [place], [address] Monocytes/100 WBC (Bld) 5.9 % Normal 0-10 [facility] Comment on above: Performed By: #### L 506.0400, L500.3400, L501.9520, L501.66325 #### [facility] [address] [place], [address] Neutrophils/100 WBC (Bld) 63.1 % Normal 47-70 [facility] Comment on above: Performed By: #### L 506.0400, L500.3400, L501.9520, L501.93901 #### [facility] [address] [place], [address] Nucleated RBC (Bld) [#/Vol] 0 10*3/uL Normal 0-5 [facility] Comment on above: Performed By: #### L 506.0400, L500.3400, L501.9520, L501.35989 #### [facility] [address] [place], [address] Platelet mean volume (Bld) [Entitic vol] 9.0 fL Normal 6.2-12.0 [facility] Comment on above: Performed By: #### L 506.0400, L500.3400, L501.9520, L501.19669 #### [facility] [address] [place], [address] Platelets (Bld) [#/Vol] 310 10*3/uL Normal 150-450 [facility] Comment on above: Performed By: #### L 506.0400, L500.3400, L501.9520, L501.38289 #### [facility] [address] [place], [address] RBC (Bld) [#/Vol] 5.19 10*6/uL Normal 4.6-6.2 [facility] Comment on above: Performed By: #### L 506.0400, L500.3400, L501.9520, L501.26948 #### [facility] [address] [place], [address] RDW SD 39.5 fl Normal 35.1-43.9 [facility] Comment on above: Performed By: #### L 506.0400, L500.3400, L501.9520, L501.42534 #### [facility] [address] [place], [address] WBC (Bld) [#/Vol] 9.4 10*3/uL Normal 4.4-11.0 [facility] Comment on above: Performed By: #### L 506.0400, L500.3400, L501.9520, L501.07485 #### [facility] [address] [place], [address] Comprehensive Metabolic Prof ndon 12-12-2024 Albumin [Mass/Vol] 3.8 g/dL Normal 3.2-5.0 [facility] Comment on above: Performed By: #### L 506.0400, L500.3400, L501.9520, L501.35306 #### [facility] [address] [place], [address] Albumin/Globulin [Mass ratio] 1.2 {ratio} Normal 0.9-2.4 [facility] Comment on above: Performed By: #### L 506.0400, L500.3400, L501.9520, L501.20853 #### [facility] [address] [place], [address] ALK P 58 U/L Normal 45-117 [facility] Comment on above: Performed By: #### L 506.0400, L500.3400, L501.9520, L501.96320 #### [facility] [address] [place], [address] ALT [Catalytic activity/Vol] 33 U/L Normal 16-61 [facility] Comment on above: Performed By: #### L 506.0400, L500.3400, L501.9520, L501.40137 #### [facility] [address] [place], [address] AST [Catalytic activity/Vol] 15 U/L Normal 15-37 [facility] Comment on above: Performed By: #### L 506.0400, L500.3400, L501.9520, L501.72492 #### [facility] [address] [place], [address] Bilirubin [Mass/Vol] 1.10 mg/dL High 0.20-1.00 [facility] Comment on above: Result Comment: For patients on eltrombopag therapy, use of Dimension [place] TBIL is not recommended. Performed By: #### L 506.0400, L500.3400, L501.9520, L501.21143 #### [facility] [address] [place], [address] BUN/CRE 12.1 RATIO Normal 10-20 [facility] Comment on above: Performed By: #### L 506.0400, L500.3400, L501.9520, L501.94631 #### [facility] [address] [place], [address] CA,Total 9.0 mg/dL Normal 8.5-10.1 [facility] Comment on above: Performed By: #### L 506.0400, L500.3400, L501.9520, L501.86002 #### [facility] [address] [place], [address] Chloride [Moles/Vol] 105 mmol/L Normal 98-107 [facility] Comment on above: Performed By: #### L 506.0400, L500.3400, L501.9520, L501.88948 #### [facility] [address] [place], [address] CO2 [Moles/Vol] 25.0 mmol/L Normal 21.0-32.0 [facility] Comment on above: Performed By: #### L 506.0400, L500.3400, L501.9520, L501.29211 #### [facility] [address] [place], [address] Creatinine [Mass/Vol] 0.83 mg/dL Normal 0.70-1.30 [facility] Comment on above: Result Comment: The validity of the calculated GFR GFRAA in patients over 70 years has not been determined. Clinical correlation is essential. Performed By: #### L 506.0400, L500.3400, L501.9520, L501.63061 #### [facility] [address] [place], [address] EST GFR - AA 123 mL/min Normal >60 [facility] Comment on above: Result Comment: Afri can [place] GFR Calc Performed By: #### L 506.0400, L500.3400, L501.9520, L501.89370 #### [facility] [address] [place], [address] GAP 6 Normal 5-15 [facility] Comment on above: Performed By: #### L 506.0400, L500.3400, L501.9520, L501.94495 #### [facility] [address] [place], [address] GFR/1.73 sq M.predicted among non-blacks MDRD (S/P/Bld) [Vol rate/Area] 102 mL/min/{1.73_m2} Normal >60 [facility] Comment on above: Result Comment: Non- GFR Calc Performed By: #### L 506.0400, L500.3400, L501.9520, L501.16277 #### [facility] [address] [place], [address] Globulin (S) [Mass/Vol] 3.3 g/dL Normal 2.2-4.2 [facility] Comment on above: Performed By: #### L 506.0400, L500.3400, L501.9520, L501.22831 #### [facility] [address] [place], [address] Glucose [Mass/Vol] 95 mg/dL Normal 74-106 [facility] Comment on above: Performed By: #### L 506.0400, L500.3400, L501.9520, L501.45910 #### [facility] [address] [place], [address] Potassium [Moles/Vol] 4.2 mmol/L Normal 3.5-5.1 [facility] Comment on above: Performed By: #### L 506.0400, L500.3400, L501.9520, L501.18428 #### [facility] [address] [place], [address] Sodium [Moles/Vol] 136 mmol/L Normal 136-145 [facility] Comment on above: Performed By: #### L 506.0400, L500.3400, L501.9520, L501.71987 #### [facility] [address] [place], [address] T PROT 7.1 g/dL Normal 6.4-8.2 [facility] Comment on above: Performed By: #### L 506.0400, L500.3400, L501.9520, L501.26674 #### [facility] [address] [place], [address] Urea nitrogen [Mass/Vol] 10 mg/dL Normal 7-18 [facility] Comment on above: Performed By: #### L 506.0400, L500.3400, L501.9520, L501.78769 #### [facility] [address] [place], [address] Free T3on 12-12-2024 Free T3 [Mass/Vol] 2.6 pg/mL Normal 2.18-3.98 [facility] Comment on above: Performed By: #### L 506.0400, L500.3400, L501.9520, L501.43769 #### [facility] [address] [place], [address] T4 Free Directon 12-12-2024 T4 FREE DIRECT 1.04 ng/dL Normal 0.76-1.46 [facility] Comment on above: Performed By: #### L 506.0400, L500.3400, L501.9520, L501.00404 #### [facility] [address] [place], [address] Thyroid Stim Hormone (TSH)on 12-12-2024 TSH 2.890 uIU/mL Normal 0.358-3.740 [facility] Comment on above: Performed By: #### L 506.0400, L500.3400, L501.9520, L501.96586 #### [facility] [address] [place], [address] Office Visiton 12-08-2024 Follow-up visit [id number] Jorgito Fraga 1965 M Date Provider Department Center 12/08/2024 JEANETTE PRATER [facility] CÉSAR [facility] [address] Ar Family [...] Father's Sister Mother's Brother Alive Level of Service:58578 [place] OFFICE/OUTPATIENT ESTABLISHED MOD MDM 30 MIN Reason for Visit and Comments: Follow-up [143772] Normal [facility] Progress Noteon 12-08-2024 Progress Note [facility] [place] [address] [facility] [address] Dept: [phone] Dept Visit type: Established : 1965 Reason [...] about 6 months (around 06/07/2025) for Dr. Waters. Alvin Fraga is a 59 y.o. male [...] ELECTROPHYSIOLOGY PROCEDURE N/A 12/02/2023 Performed by Ezra Waters MD at [facility] Cardiac Cath/EP Lab CARDIAC ELECTROPHYSIOLOGY PROCEDURE N/A 12/02/2023 Performed by Ezra Waters MD at [facility] Cardiac Cath/EP Lab CARDIAC PROCEDURE 03/06/2019 TRANSESOPHAGEAL [...] appearance. H (more content not included)... Normal [facility] Progress Note Continue CPAP nightly. Normal [facility] Progress Note S/p CTI ablation wit h no recurrence. Normal [facility] Progress Note Last monitor showed a 14% [...] and we can discuss redo ablation. Normal [facility] 36on 11-06-2024 36 Patient scheduled with BEE 12-08-24. Normal [facility] 36 LVM informing shalom moon of test results, marguerite please reach out and schedule follow up appointment. Normal [facility] 36 ----- Message from FRANCHESCA Portillo CNP sent at 11/06/2024 8:07 AM EST ----- Please let patient know stress test looked ok, not the best images but no clear evidence of ischemia. He is overdue for follow up, please schedule appt with me, on Tikosyn. Normal [facility] No Panel InformationOrdered By: Cipriano Kebede on 11-03-2024 Angina Index 0 [facility] Work Phone: Ao Root Index 1.26 cm/m2 [facility] [employer] Work Phone: Aortic Root 3.3 cm [facility] Work Phone: Aortic Sinus Valsalva 3.3 cm [facility] Work Phone: [phone] Aortic Sinus Valsalva Index 1.26 cm/m2 [facility] Work Phone: [phone] Ascending Aorta 3.7 cm [facility] Work Phone: [phone] Ascending Aorta Index 1.42 cm/m2 [facility] Work Phone: Baseline Diastolic BP 80 mmHg [facility] Work Phone: Baseline HR 67 bpm [facility] Work Phone: Baseline ST Depression 0 mm [facility] Work Phone: Baseline Systolic BP 147 mmHg [facility] Work Phone: [phone] Estrada Treadmill Score 6 [facility] Work Phone: [phone] EF BP 50 % Abnormal 55 - 100 % [facility] [employer] Work Phone: [phone] Exercise Duration Seconds 26 sec [facility] [employer] Work Phone: Exercise Duration Time 6 min [facility] Work Phone: [phone] Interpretation and review of laboratory results Abnormal [facility] [employer] Work Phone: [phone] LV EDV A2C 238 mL [facility] [employer] Work Phone: [phone] LV EDV A4C 279 mL [facility] [employer] Work Phone: [phone] LV EDV BP 259 mL Abnormal 67 - 155 mL [facility] [employer] Work Phone: LV EDV Index A2C 91 mL/m2 [facility] Work Phone: [phone] LV EDV Index A4C 107 mL/m2 [facility] Work Phone: [phone] LV EDV Index BP 99 mL/m2 [facility] Work Phone: [phone] LV Ejection Fraction A2C 40 % [facility] [employer] Work Phone: [phone] LV Ejection Fraction A4C 53 % [facility] [employer] Work Phone: [phone] LV ESV A2C 142 mL [facility] [employer] Work Phone: [phone] LV ESV A4C 131 mL [facility] [employer] Work Phone: LV ESV BP 138 mL Abnormal 22 - 58 mL [facility] Work Phone: [phone] LV ESV Index A2C 54 mL/m2 [facility] Work Phone: [phone] LV ESV Index A4C 50 mL/m2 [facility] Work Phone: [phone] LV ESV Index BP 53 mL/m2 [facility] Work Phone: [phone] LVOT Area 4.2 cm2 [facility] Work Phone: [phone] LVOT Diameter 2.3 cm [facility] Work Phone: [phone] Recovery Stage 1 Duration 1 min:sec [facility] Work Phone: [phone] Recovery Stage 1 HR 103 bpm [facility] Work Phone: [phone] Recovery Stage 2 BP 146/99 mmHg [facility] Work Phone: [phone] Recovery Stage 2 Duration 2 min:sec [facility] Work Phone: [phone] Recovery Stage 2 HR 184 bpm [facility] Work Phone: [phone] Recovery Stage 3 BP 161/82 mmHg [facility] Work Phone: [phone] Recovery Stage 3 Duration 4 min:sec [facility] Work Phone: Recovery Stage 3 HR 87 bpm [facility] Work Phone: [phone] Recovery Stage 4 BP 152/75 mmHg [facility] Work Phone: [phone] Recovery Stage 4 Duration 6 min:sec [facility] Work Phone: Recovery Stage 4 HR 84 bpm [facility] Work Phone: Sinotubular Junction 2.9 cm [facility] Work Phone: [phone] Stress Diastolic BP 80 mmHg [facility] Work Phone: [phone] Stress Estimated Workload 7.3 METS [facility] Work Phone: Stress Peak HR 131 bpm [facility] Work Phone: [phone] Stress Percent HR Achieved 80 % [facility] Work Phone: Stress Rate Pressure Product 31903 bpm*mmHg [facility] Work Phone: [phone] Depression 0 mm [facility] Work Phone: Stress Stage 1 BP 150/82 mmHg [facility] Work Phone: Stress Stage 1 Duration 3 min:sec [facility] [employer] Work Phone: Stress Stage 1 HR 106 bpm [facility] Work Phone: Stress Stage 2 BP 160/80 mmHg [facility] Work Phone: Stress Stage 2 Duration 6 min:sec S [facility] [employer] Work Phone: Stress Stage 2 HR 126 bpm [facility] Work Phone: Stress Stage 3 Duration 6:26 min:sec S [employer] Work Phone: Stress Stage 3 HR 131 bpm [facility] Work Phone: Stress Systolic BP 160 mmHg [facility] Work Phone: Stress Target HR 163 bpm [facility] Work Phone: [facility] Work Phone: No Panel Informationon 11-03 [...] 11-03-2024 Oxygen saturation in Blood 98 % [facility] [employer] Work Phone: Oxygen saturation in Blood 97 % [facility] [employer] Work Phone: 36on 09-14-2024 36 Please see new order s have been placed. [facility] 36 New orders placed. [facility] [address] you please place new orders for stress test and HM? The orders SM placed were put in wrong department. ( [facility] Central scheduling). Thank you [facility] 36on 09-12-2024 36 Will need new orders. Normal [facility] 36 Reason for call: Carly the patients called into schedule the patient for a stress echocardiogram and Holter monitor, but the orders say cancelled and wont let me schedule. Please place new orders. Thank you Contact [facility] 36on 09-11-2024 36 Pt's called back, she was given the number for scheduling, she will try to call today or have her (the pt) call me and I will assist in scheduling. [facility] 36 Spoke to pt's who was driving at the time, instructed her to call back when she is able to discuss rescheduling testing and fu Normal [facility] 36 Patient never had monitor or stress test that was ordered in February. Also has no follow up scheduled. Needs arranged. [facility] 36 EASTON-03/15 MSP NOV-none CMP-11/13 EKG-03/15 [facility] Shoulder min 2 Viewson 08-04 Shoulder min 2 Views [facility] Imaging Services [address] [place], [place] [address] Shoulder min 2 Views MR#: [id number] Acct: [id number] Name: JORGITO FRAGA Rep #: [id number] : 1965 M 58 From: Sal Kaplan MD PCP: Dr. Curry Banda MD Status: REG CLI Study: Shoulder min 2 Views Date of Exam: 08/04/24 Exam# [id number] Ordering Dr: Curry Banda MD [id number] STUDY: X-RAY - RIGHT SHOULDER REASON FOR [...] Signed: Sal Kaplan MD at 16:09 EDT Reading Location ID and State: [facility] / [place] , Service support , CC: Dr. Curry Banda MD Salon Manager: Signed Normal [facility] ABD Limited w/ Elastographyo n 07-08-2024 ABD Limited w/ Elastography [facility] Imaging Services [address] [place] [id number] ABD Limited w/ Elastography MR#: [id number] Acct: [id number] Name: JORGITO FRAGA Rep #: [id number] : 1965 M 58 From: Tyler tabares MD PCP: Dr. Curry Banda MD Status: REG [facility] Study: ABD Limited w/ Elastography Date of Exam: 06/22 06/14 Exam# [id number] Ordering Dr: Curry Banda MD [id number] STUDY: ABDOMINAL ULTRASOUND - RIGHT UPPER QUADRANT; ELASTOGRAPHY REASON FOR VISIT: Male, 58 years old. Elevated liver enzymes. TECHNIQUE: Ultrasound evaluation of the right upper quadrant was performed with real-time and static rey-scale imaging. Point quantification shear wave elastography was performed ([employer]). TECHNICAL QUALITY: Limited. Examination limited due to [...] EDT , CC: Dr. Curry Banda MD Salon Manager: Signed [facility] 36on 06-27-2024 36 Sent rx request to ac bernard [facility] Thyroglobulin Antibodyon TG AB < 1.0 Normal 0.0-0.9 [facility] Comment on above: Result Comment: Thyr oglobulin Antibody measured by Jeimy [place] Methodology It should be noted that the presence of thyroglobulin antibodies may not be pathogenic nor diagnostic, especially at very low levels. The assay solar panel technician has found that four percent of individuals without evidence of thyroid disease or autoimmunity will have positive TgAb levels up to 4 IU/mL. Performed By: #### L 506.0400, L500.3400, L501.9520, L501.90872 #### [facility] [address] [facility] [place], [place], [address] Thyroid Peroxidase ABon THYR PEROX AB 50 IU/mL High 0-34 [facility] Comment on above: Result Comment: Perf ormed at: [facility] [address] [id number] Thermospray Operator: Akhil Franks PhD, Phone: [phone] Performed By: #### L 506.0400, L500.3400, L501.9520, L501.83782 #### [facility] [address] [facility] [facility] [place], [address] CBC W/Diff, Automatedon Absolute Lymph 2.96 X10 3/uL Normal 0.83-4.51 [facility] Comment on above: Performed By: #### L 501.48808, L500.4050, L100.0100, L3300.7027, L506.0400, L501.9520, L501.5200, L3300.6900, L500.4100, L501.9910 #### [facility] [address] [place], [place], [address] Absolute Neut 7.5 X10 3/uL Normal 2.0-7.7 [facility] Comment on above: Performed By: #### L 501.10385, L500.4050, L100.0100, L3300.7027, L506.0400, L501.9520, L501.5200, L3300.6900, L500.4100, L501.9910 #### [facility] [address] [facility] [place], [address] Basophils/100 WBC (Bld) 0.7 % Normal 0-1 [facility] Comment on above: Performed By: #### L 501.09096, L500.4050, L100.0100, L3300.7027, L506.0400, L501.9520, L501.5200, L3300.6900, L500.4100, L501.9910 #### [facility] [address] [place], [address] ( Eosinophils/100 WBC (Bld) 1.1 % Normal 0-5 [facility] Comment on above: Performed By: #### L 501.57062, L500.4050, L100.0100, L3300.7027, L506.0400, L501.9520, L501.5200, L3300.6900, L500.4100, L501.9910 #### [facility] [address] [place], [address] ( Erythrocyte distribution width (RBC) [Ratio] 12.9 % Normal 11.6-14.6 [facility] Comment on above: Performed By: #### L 501.34661, L500.4050, L100.0100, L3300.7027, L506.0400, L501.9520, L501.5200, L3300.6900, L500.4100, L501.9910 #### [facility] [address] [facility], [address] ( Hematocrit (Bld) [Volume fraction] 43.6 % Normal 40-54 [facility] Comment on above: Performed By: #### L 501.16324, L500.4050, L100.0100, L3300.7027, L506.0400, L501.9520, L501.5200, L3300.6900, L500.4100, L501.9910 #### [facility] [address] [place], [address] Hemoglobin (Bld) [Mass/Vol] 14.6 g/dL Normal 13.0-16.5 [facility] Comment on above: Performed By: #### L 501.26067, L500.4050, L100.0100, L3300.7027, L506.0400, L501.9520, L501.5200, L3300.6900, L500.4100, L501.9910 #### [facility] [address] [facility] [place], [address] IG% 0.200 Normal 0.0-0.9 [facility] Comment on above: Result Comment: IG% - Immature Granulocytes (promyelocytes, myelocytes and metamyelocytes) > 1% indicates that a LEFT SHIFT is Present. Performed By: #### L 501.73158, L500.4050, L100.0100, L3300.7027, L506.0400, L501.9520, L501.5200, L3300.6900, L500.4100, L501.9910 #### [facility] [address] [place], [address] Lymphocytes/100 WBC (Bld) 26.0 % Normal 19-41 [facility] Comment on above: Performed By: #### L 501.14774, L500.4050, L100.0100, L3300.7027, L506.0400, L501.9520, L501.5200, L3300.6900, L500.4100, L501.9910 #### [facility] [address] [facility] [place], [address] MCH (RBC) [Entitic mass] 28.6 pg Normal 27.0-32.0 [facility] Comment on above: Performed By: #### L 501.68403, L500.4050, L100.0100, L3300.7027, L506.0400, L501.9520, L501.5200, L3300.6900, L500.4100, L501.9910 #### [facility] [address] [place], [address] MCHC (RBC) [Mass/Vol] 33.5 g/dL Normal 32-36 [facility] Comment on above: Performed By: #### L 501.24442, L500.4050, L100.0100, L3300.7027, L506.0400, L501.9520, L501.5200, L3300.6900, L500.4100, L501.9910 #### [facility] [address] [facility] [address] [place], [address] MCV (RBC) [Entitic vol] 85.5 fL Normal 80-94 [facility] Comment on above: Performed By: #### L 501.99483, L500.4050, L100.0100, L3300.7027, L506.0400, L501.9520, L501.5200, L3300.6900, L500.4100, L501.9910 #### [facility] [address] [place], [address] Monocytes/100 WBC (Bld) 5.7 % Normal 0-10 [facility] Comment on above: Performed By: #### L 501.61075, L500.4050, L100.0100, L3300.7027, L506.0400, L501.9520, L501.5200, L3300.6900, L500.4100, L501.9910 #### [facility] [address] [facility] [address] [place], [address] Neutrophils/100 WBC (Bld) 66.3 % Normal 47-70 [facility] Comment on above: Performed By: #### L 501.56226, L500.4050, L100.0100, L3300.7027, L506.0400, L501.9520, L501.5200, L3300.6900, L500.4100, L501.9910 #### [facility] [address] [place], [address] Nucleated RBC (Bld) [#/Vol] 0 10*3/uL Normal 0-5 [facility] Comment on above: Performed By: #### L 501.39240, L500.4050, L100.0100, L3300.7027, L506.0400, L501.9520, L501.5200, L3300.6900, L500.4100, L501.9910 #### [facility] [address] [facility] [place], [address] Platelet mean volume (Bld) [Entitic vol] 9.3 fL Normal 6.2-12.0 [facility] Comment on above: Performed By: #### L 501.63165, L500.4050, L100.0100, L3300.7027, L506.0400, L501.9520, L501.5200, L3300.6900, L500.4100, L501.9910 #### [facility] [address] [place], [address] Platelets (Bld) [#/Vol] 354 10*3/uL Normal 150-450 [facility] Comment on above: Performed By: #### L 501.84047, L500.4050, L100.0100, L3300.7027, L506.0400, L501.9520, L501.5200, L3300.6900, L500.4100, L501.9910 #### [facility] [address] [facility] [place], [address] RBC (Bld) [#/Vol] 5.10 10*6/uL Normal 4.6-6.2 [facility] Comment on above: Performed By: #### L 501.43732, L500.4050, L100.0100, L3300.7027, L506.0400, L501.9520, L501.5200, L3300.6900, L500.4100, L501.9910 #### [facility] [address] [place], [address] RDW SD 40.1 fl Normal 35.1-43.9 [facility] Comment on above: Performed By: #### L 501.55060, L500.4050, L100.0100, L3300.7027, L506.0400, L501.9520, L501.5200, L3300.6900, L500.4100, L501.9910 #### [facility] [address] [place], [place], [address] WBC (Bld) [#/Vol] 11.4 10*3/uL High 4.4-11.0 [facility] Comment on above: Performed By: #### L 501.42306, L500.4050, L100.0100, L3300.7027, L506.0400, L501.9520, L501.5200, L3300.6900, L500.4100, L501.9910 #### [facility] [address] [place], [place], [address] Comprehensive Metabolic Prof [facility] 06-23-2024 Albumin [Mass/Vol] 3.7 g/dL Normal 3.2-5.0 [facility] Comment on above: Performed By: #### L 501.30144, L500.4050, L100.0100, L3300.7027, L506.0400, L501.9520, L501.5200, L3300.6900, L500.4100, L501.9910 #### [facility] [address] [place], [address] Albumin/Globulin [Mass ratio] 1.0 {ratio} Normal 0.9-2.4 [facility] Comment on above: Performed By: #### L 501.64247, L500.4050, L100.0100, L3300.7027, L506.0400, L501.9520, L501.5200, L3300.6900, L500.4100, L501.9910 #### [facility] [address] [place], [address] ALK P 69 U/L Normal 45-117 [facility] Comment on above: Performed By: #### L 501.09114, L500.4050, L100.0100, L3300.7027, L506.0400, L501.9520, L501.5200, L3300.6900, L500.4100, L501.9910 #### [facility] [address] [place], [address] ALT [Catalytic activity/Vol] 87 U/L High 16-61 [facility] Comment on above: Performed By: #### L 501.63503, L500.4050, L100.0100, L3300.7027, L506.0400, L501.9520, L501.5200, L3300.6900, L500.4100, L501.9910 #### [facility] [address] [place], [address] AST [Catalytic activity/Vol] 39 U/L High 15-37 [facility] Comment on above: Performed By: #### L 501.44013, L500.4050, L100.0100, L3300.7027, L506.0400, L501.9520, L501.5200, L3300.6900, L500.4100, L501.9910 #### [facility] [address] [place], [address] Bilirubin [Mass/Vol] 1.00 mg/dL Normal 0.20-1.00 [facility] Comment on above: Result Comment: For patients on eltrombopag therapy, use of Dimension [place] TBIL is not recommended. Performed By: #### L 501.57041, L500.4050, L100.0100, L3300.7027, L506.0400, L501.9520, L501.5200, L3300.6900, L500.4100, L501.9910 #### [facility] [address] [place], [address] BUN/CRE 18.6 RATIO Normal 10-20 [facility] Comment on above: Performed By: #### L 501.52662, L500.4050, L100.0100, L3300.7027, L506.0400, L501.9520, L501.5200, L3300.6900, L500.4100, L501.9910 #### [facility] [address] [place], [place], [id number] (635 CA,Total 9.6 mg/dL Normal 8.5-10.1 [facility] Comment on above: Performed By: #### L 501.74409, L500.4050, L100.0100, L3300.7027, L506.0400, L501.9520, L501.5200, L3300.6900, L500.4100, L501.9910 #### [facility] [address] [place], [address] Chloride [Moles/Vol] 110 mmol/L High 98-107 [facility] Comment on above: Performed By: #### L 501.35103, L500.4050, L100.0100, L3300.7027, L506.0400, L501.9520, L501.5200, L3300.6900, L500.4100, L501.9910 #### [facility] [address] [place], [address] CO2 [Moles/Vol] 24.0 mmol/L Normal 21.0-32.0 [facility] Comment on above: Performed By: #### L 501.55528, L500.4050, L100.0100, L3300.7027, L506.0400, L501.9520, L501.5200, L3300.6900, L500.4100, L501.9910 #### [facility] [address] [place], [place], [id number] (672) Creatinine [Mass/Vol] 0.86 mg/dL Normal 0.70-1.30 [facility] Comment on above: Result Comment: The validity of the calculated GFR GFRAA in patients over 70 years has not been determined. Clinical correlation is essential. Performed By: #### L 501.52936, L500.4050, L100.0100, L3300.7027, L506.0400, L501.9520, L501.5200, L3300.6900, L500.4100, L501.9910 #### [facility] [address] [place], [place], [id number] EST GFR - AA 118 mL/min Normal >60 [facility] Comment on above: Result Comment: Afri can [place] Islander GFR Calc Performed By: #### L 501.36626, L500.4050, L100.0100, L3300.7027, L506.0400, L501.9520, L501.5200, L3300.6900, L500.4100, L501.9910 #### [facility] [address] [place], [place], [id number] GAP 6 Normal 5-15 [facility] Comment on above: Performed By: #### L 501.38988, L500.4050, L100.0100, L3300.7027, L506.0400, L501.9520, L501.5200, L3300.6900, L500.4100, L501.9910 #### [facility] [address] [place], [place], [phone] (539) GFR/1.73 sq M.predicted among non-blacks MDRD (S/P/Bld) [Vol rate/Area] 97 mL/min/{1.73_m2} Normal >60 [facility] Comment on above: Result Comment: Non- GFR Calc Performed By: #### L 501.60842, L500.4050, L100.0100, L3300.7027, L506.0400, L501.9520, L501.5200, L3300.6900, L500.4100, L501.9910 #### [facility] [address] [place], [address] Globulin (S) [Mass/Vol] 3.6 g/dL Normal 2.2-4.2 [facility] Comment on above: Performed By: #### L 501.89922, L500.4050, L100.0100, L3300.7027, L506.0400, L501.9520, L501.5200, L3300.6900, L500.4100, L501.9910 #### [facility] [address] [place], [address] Glucose [Mass/Vol] 95 mg/dL Normal 74-106 [facility] Comment on above: Performed By: #### L 501.82335, L500.4050, L100.0100, L3300.7027, L506.0400, L501.9520, L501.5200, L3300.6900, L500.4100, L501.9910 #### [facility] [address] [place], [address] Potassium [Moles/Vol] 4.1 mmol/L Normal 3.5-5.1 [facility] Comment on above: Performed By: #### L 501.07273, L500.4050, L100.0100, L3300.7027, L506.0400, L501.9520, L501.5200, L3300.6900, L500.4100, L501.9910 #### [facility] [address] [place], [address] Sodium [Moles/Vol] 140 mmol/L Normal 136-145 [facility] Comment on above: Performed By: #### L 501.55620, L500.4050, L100.0100, L3300.7027, L506.0400, L501.9520, L501.5200, L3300.6900, L500.4100, L501.9910 #### [facility] [address] [place], [address] T PROT 7.3 g/dL Normal 6.4-8.2 [facility] Comment on above: Performed By: #### L 501.16047, L500.4050, L100.0100, L3300.7027, L506.0400, L501.9520, L501.5200, L3300.6900, L500.4100, L501.9910 #### [facility] [address] [place], [address] Urea nitrogen [Mass/Vol] 16 mg/dL Normal 7-18 [facility] Comment on above: Performed By: #### L 501.72627, L500.4050, L100.0100, L3300.7027, L506.0400, L501.9520, L501.5200, L3300.6900, L500.4100, L501.9910 #### [facility] [address] [place], [address] Free T3on 06-23-2024 Free T3 [Mass/Vol] 2.8 pg/mL Normal 2.18-3.98 [facility] Comment on above: Performed By: #### L 501.71098, L500.4050, L100.0100, L3300.7027, L506.0400, L501.9520, L501.5200, L3300.6900, L500.4100, L501.9910 #### [facility] [address] [place], [address] Lipid Profileon 06-23-2024 Cholesterol [Mass/Vol] 190 mg/dL Normal 200 [facility] Comment on above: Result Comment: <200 mg/dL Desirable 200-240 mg/dL Borderline >240 mg/dL High Risk Performed By: #### L 501.64666, L500.4050, L100.0100, L3300.7027, L506.0400, L501.9520, L501.5200, L3300.6900, L500.4100, L501.9910 #### [facility] [address] [place], [address] Cholesterol in HDL [Mass/Vol] 34 mg/dL Low [facility] Comment on above: Result Comment: The drugs N-Acetylcysteine and Metamizole may falsely depress this assay. Reference Range HDL <40 mg/dL Low HDL Cholesterol HDL >or= 60 mg/dL High HDL Cholesterol Performed By: #### L 501.70771, L500.4050, L100.0100, L3300.7027, L506.0400, L501.9520, L501.5200, L3300.6900, L500.4100, L501.9910 #### [facility] [address] [place], [address] Cholesterol in LDL [Mass/Vol] 119 mg/dL Normal 0-130 [facility] Comment on above: Performed By: #### L 501.44805, L500.4050, L100.0100, L3300.7027, L506.0400, L501.9520, L501.5200, L3300.6900, L500.4100, L501.9910 #### [facility] [address] [place], [address] Cholesterol in VLDL [Mass/Vol] 37 mg/dL Normal 5-40 [facility] Comment on above: Performed By: #### L 501.26039, L500.4050, L100.0100, L3300.7027, L506.0400, L501.9520, L501.5200, L3300.6900, L500.4100, L501.9910 #### [facility] [address] [place], [place], [id number] (734) Triglyceride [Mass/Vol] 187 mg/dL Normal [facility] Comment on above: Result Comment: The drugs N-Acetylcysteine and Metamizole may falsely depress this assay. Serum Triglycerides Reference Interval Normal <150 mg/dL Borderline high 150 - 199 mg/dL High 200 - 499 mg/dL Very High > or = 500 mg/dL Performed By: #### L 501.70067, L500.4050, L100.0100, L3300.7027, L506.0400, L501.9520, L501.5200, L3300.6900, L500.4100, L501.9910 #### [facility] [address] [place], [address] Magnesiumon 06-23-2024 Magnesium [Mass/Vol] 2.1 mg/dL Normal 1.6-2.6 [facility] Comment on above: Performed By: #### L 501.78761, L500.4050, L100.0100, L3300.7027, L506.0400, L501.9520, L501.5200, L3300.6900, L500.4100, L501.9910 #### [facility] [address] [place], [address] PSA,Total - Annual Screenon 06-23-2024 PSA,TOT SCREEN 2.18 ng/mL Normal 0.00-4.00 [facility] Comment on above: Result Comment: This test was performed using the TPSA assay method for the [employer] system. Values obtained with different assay methods cannot be used interchangably. When changing PSA assays in the course of monitoring a patient, additional sequential testing should be carried out to confirm baseline values. Performed By: #### L 506.0400, L500.3400, L501.9520, L501.88461 #### [facility] [address] [place], [place], [id number] T4 Free Directon 06-23-2024 T4 FREE DIRECT 0.92 ng/dL Normal 0.76-1.46 [facility] Comment on above: Performed By: #### L 506.0400, L500.3400, L501.9520, L501.18125 #### [facility] [address] [place], [place], [id number] Thyroid Stim Hormone (TSH)on 06-23-2024 TSH 1.66 uIU/mL Normal 0.358-3.74 [facility] Comment on above: Performed By: #### L 501.19761, L500.4050, L100.0100, L3300.7027, L506.0400, L501.9520, L501.5200, L3300.6900, L500.4100, L501.9910 #### [facility] [address] [place], [place], [id number] Electrophysiology studyon Successful ablation for atrial fibrillation [...] A transseptal access was performed using a LeximG needle assembly and sheath was advanced into [...] were used for hemostasis. CV CPACS HEMO [facility] No Panel Informationon 12-02 Interpretation and review of laboratory results Abnormal [place] [facility] POCT ACT 302 High [facility] Performed by: [facility], [address] [place] [address] CLIA ID: [id number] [facility] Interpretation and review of laboratory results Abnormal [facility] Health POCT ACT 296 High [facility] Performed by: [facility], [address], [place] [address] CLIA ID: [id number] [facility] Interpretation and review of laboratory results Abnormal [facility] POCT ACT 228 High [facility] Performed by: [facility], [address], [place] [address] CLIA ID: [id number] [facility] Interpretation and review of laboratory results Abnormal [facility] POCT ACT 182 High [facility] Performed by: [facility], [address], [place] [address] CLIA ID: [id number] [facility] Absolute lymphocyte countOrd ered By: Curry Banda on 11-17-2023 Lymphocytes Auto (Unsp spec) [#/Vol] 2.73 10*3/uL 0.83-4.51 [facility] Basophil percentageOrdered B y: Curry Banda on 11-17-2023 Basophils/100 WBC (Bld) 0.6 % 0-1 [facility] Bilirubin [Mass/Vol] 1.10 mg/dL 0.20-1.00 [facility] Comment on above: For patients on eltr ombopag therapy, use of Dimension [place] TBIL is not recommended. Chloride [Moles/Vol] 106 mmol/L 98-107 [facility] Cholesterol [Mass/Vol] 145 mg/dL <200 [facility] Comment on above: <200 mg/dL Desirable 200-240 mg/dL Borderline >240 mg/dL High Risk Eosinophils/100 WBC (Bld) 1.2 % 0-5 [facility] Glucose [Mass/Vol] 208 mg/dL 74-106 [facility] Comment on above: Glucose result great er than or equal to 200 mg/dLsuggests DIABETES MELLITUS per A.D.A. criteria. Neutrophils (Bld) [#/Vol] 3.8 10*3/uL 2.0-7.7 [facility] Neutrophils/100 WBC (Bld) 54.9 % 47-70 [facility] Potassium [Moles/Vol] 4.3 mmol/L 3.5-5.1 [facility] Protein [Mass/Vol] 6.9 g/dL 6.4-8.2 [facility] Sodium [Moles/Vol] 139 mmol/L 136-145 [facility] Triglyceride [Mass/Vol] 115 mg/dL <199 [facility] Comment on above: The drugs N-Acetylcy steine and Metamizole may falsely depress this assay.Serum Triglycerides Reference Interval Normal <150 mg/dL Borderline high 150 - 199 mg/dL High 200 - 499 mg/dL Very High > or = 500 mg/dL WBC (Bld) [#/Vol] 6.9 10*3/uL 4.4-11.0 [facility] Blood erythrocytes count (nu mber/volume)Ordered By: Curry Banda on 11-17-2023 RBC (Bld) [#/Vol] 5.45 10*6/uL 4.6-6.2 [facility] Blood hemoglobin measurement (mass/volume)Ordered By: Curry aBnda on 11-17-2023 Hemoglobin (Bld) [Mass/Vol] 16.0 g/dL 13.0-16.5 [facility] Blood lymphocytes/100 leukoc ytesOrdered By: Curry Banda on 11-17-2023 Lymphocytes/100 WBC (Bld) 39.7 % 19-41 [facility] Blood monocytes/100 leukocyt esOrdered By: Curry Banda on 11-17-2023 Monocytes/100 WBC (Bld) 3.2 % 0-10 [facility] Blood platelet mean volumeOr dered By: Curry Banda on 11-17-2023 Platelet mean volume (Bld) [Entitic vol] 9.2 fL 6.2-12.0 [facility] Determination of erythrocyte mean corpuscular volume (MCV)Ordered By: Curry Banda on 11-17-2023 MCV (RBC) [Entitic vol] 85.5 fL 80-94 [facility] Hematocrit Auto (Bld) [Volum e fraction]Ordered By: Curry Banda on 11-17-2023 Hematocrit (Bld) [Volume fraction] 46.6 % 40-54 [facility] INR in Blood by Coagulation assayOrdered By: Curry Banda on 11-17-2023 INR Coag (Bld) [Relative time] 1.1 {INR} [facility] - Chemistry and C hemistry - challengeOrdered By: Curry Banda on 11-17-2023 ALP [Catalytic activity/Vol] 59 U/L 45-117 [facility] ALT [Catalytic activity/Vol] 60 U/L 16-61 [facility] CO2 [Moles/Vol] 24.0 mmol/L 21.0-32.0 [facility] Globulin (S) [Mass/Vol] 3.5 g/dL 2.2-4.2 [facility] Urea nitrogen/Creatinine [Mass ratio] 12.8 mg/mg 10-20 [facility] - CoagulationOrde red By: Curry Banda on 11-17-2023 aPTT Coag (Bld) [Time] 32.9 s 24.1-36.2 [facility] PT Coag (PPP) [Time] 14.2 s 11.7-14.9 [facility] - Hematology and Cell countsOrdered By: Curry Banda on 11-17-2023 Erythrocyte distribution width (RBC) [Entitic vol] 39.5 fL 35.1-43.9 [facility] Erythrocyte distribution width (RBC) [Ratio] 12.7 % 11.6-14.6 [facility] Immature granulocytes/100 WBC (Bld) 0.400 % 0.0-0.9 [facility] Comment on above: IG% - Immature Granu locytes (promyelocytes, myelocytes and metamyelocytes) > 1% indicates that a LEFT SHIFT is Present. MCH (RBC) [Entitic mass] 29.4 pg 27.0-32.0 [facility] Nucleated RBC/100 WBC (Bld) [Ratio] 0 % 0-5 [facility] MCHC Auto (RBC) [Mass/Vol]Or dered By: Curry Banda on 11-17-2023 MCHC (RBC) [Mass/Vol] 34.3 g/dL 32-36 [facility] No Panel InformationOrdered By: Curry Banda on 11-17-2023 Estimated GFR (MDRD) Amer 119 mL/min >60 [facility] Comment on above: GFR Calc Estimated GFR (MDRD) Non-Af Amer 98 mL/min >60 [facility] Comment on above: Non- GFR Calc Thyroid Stimulating Hormone (TSH) 2.00 uIU/mL 0.358-3.74 [facility] Platelets bldOrdered By: Daksha Banda on 11-17-2023 Platelets (Bld) [#/Vol] 258 10*3/uL 150-450 [facility] Serum or plasma albumin franck urement (mass/volume)Ordered By: Curry Banda on 11-17-2023 Albumin [Mass/Vol] 3.4 g/dL 3.2-5.0 [facility] Serum or plasma albumin/glob ulin mass ratioOrdered By: Curry Banda on 11-17-2023 Albumin/Globulin [Mass ratio] 1.0 {ratio} 0.9-2.4 [facility] Serum or plasma calcium franck urement (mass/volume)Ordered By: Curry Banda on 11-17-2023 Calcium [Mass/Vol] 8.5 mg/dL 8.5-10.1 [facility] Serum or plasma cholesterol in HDL measurement (mass/volume)Ordered By: Curry Banda on 11-17-2023 Cholesterol in HDL [Mass/Vol] 25 mg/dL >40 [facility] Comment on above: The drugs N-Acetylcy steine and Metamizole may falsely depress this assay. Reference Range HDL <40 mg/dL Low HDL Cholesterol HDL >or= 60 mg/dL High HDL Cholesterol Serum or plasma cholesterol in VLDL measurement (mass/volume)Ordered By: Curry Banda on 11-17-2023 Cholesterol in VLDL [Mass/Vol] 23 mg/dL 5-40 [facility] Serum or plasma creatinine m easurement (mass/volume)Ordered By: Curry Banda on 11-17-2023 Creatinine [Mass/Vol] 0.86 mg/dL 0.70-1.30 [facility] Comment on above: The validity of the calculated GFR & GFRAA in patients over 70 years has not been determined. Clinical correlation is essential. Serum or plasma low density lipoprotein (LDL) cholesterol measurement (mass/volume)Ordered By: Curry Banda on 11-17-2023 Cholesterol in LDL [Mass/Vol] 97 mg/dL 0-130 [facility] Serum or plasma urea nitroge n measurement (mass/volume)Ordered By: Curry Banda on 11-17-2023 Urea nitrogen [Mass/Vol] 11 mg/dL 7-18 [facility] Thin prep Papanicolaou smear with manual screeningOrdered By: Curry Banda on 11-17-2023 Thin prep Papanicolaou smear with manual screening 29 U/L 15-37 [facility] Thin prep Papanicolaou smear with manual screening 9 5-15 [facility] - Chemistry and C hemistry - challengeon 09-24-2023 Free T4 [Mass/Vol] 0.93 ng/dL 0.76-1.46 [facility] No Panel Informationon 09-24 Free Triiodothyronine (T3) pg/dL 2.8 pg/mL 2.18-3.98 [facility] Miscellaneous Test See comment [facility] Comment on above: TEST RESULTS LIMITST SH Receptor Antibody (TBII) <0.3 U/LReference Range:Antibody Titer:<1.0 U/L = Negative1.1 - 1.5 U/L = Equivocal>1.5 U/L = Positive TESTING PERFORMED AT [facility]. ORIGINAL REPORT ON FILE IN LAB CONTAINS ADDITIONAL TEST SITE INFORMATION. Thyroid Stimulating Hormone (TSH) 3.02 uIU/mL 0.358-3.74 [facility] Thyroid stimulating immunogl obulins detectionon 09-24-2023 Thyroid stimulating immunoglobulins Ql (S) <0.10 IU/L 0.00-0.55 [facility] Comment on above: Performed at: - Cheryl guerrero [address] [id number] Director: Ronnie Lieberman MD, Phone: [phone] Laboratory - Chemistry and C hemistry - challengeon 05-24-2023 Free T4 [Mass/Vol] 0.90 ng/dL 0.76-1.46 [facility] No Panel Informationon 05-24 Free Triiodothyronine (T3) pg/dL 2.7 pg/mL 2.18-3.98 [facility] Miscellaneous Test See comment [facility] Comment on above: TEST RESULT LIMITSTS H Receptor Antibody (TBII) <0.3 U/L Reference Range: Antibody Titer: <1.0 U/L = Negative 1.1 - 1.5 U/L = Equivocal >1.5 U/L = Positive ___ TESTING PERFORMED AT [facility]. ORIGINAL REPORT ON FILE IN LAB CONTAINS ADDITIONAL TEST SITE INFORMATION. Thyroid Stimulating Hormone (TSH) 2.28 uIU/mL 0.358-3.74 [facility] Thyroid stimulating immunogl obulins detectionon 05-24-2023 Thyroid stimulating immunoglobulins Ql (S) <0.10 IU/L 0.00-0.55 [facility] Comment on above: Performed at: - [facility] [id number] Director: Ronnie Lieberman MD, Phone: [phone] Basophil percentageon 2021 Chloride [Moles/Vol] 106 mmol/L 98-107 [facility] Work Phone: Glucose [Mass/Vol] 92 mg/dL 74-106 [facility] Work Phone: Potassium [Moles/Vol] 3.9 mmol/L 3.5-5.1 [facility] Work Phone: Comment on above: Moderate Hemolysis, Result may be falsely increased. Sodium [Moles/Vol] 139 mmol/L 136-145 [facility] Work Phone: Laboratory - Chemistry and C hemistry - challengeon 07-22-2022 CO2 [Moles/Vol] 28.0 mmol/L 21.0-32.0 [facility] Work Phone: Urea nitrogen/Creatinine [Mass ratio] 16.3 mg/mg 10-20 [facility] Work Phone: No Panel Informationon 07-22 Estimated GFR (MDRD) Amer 130 mL/min >60 [facility] Work Phone: Comment on above: GFR Calc Estimated GFR (MDRD) Non-Af Amer 107 mL/min >60 [facility] Work Phone: Comment on above: Non- GFR Calc Serum or plasma calcium franck urement (mass/volume)on 07-22-2022 Calcium [Mass/Vol] 9.2 mg/dL 8.5-10.1 [facility] Work Phone: Serum or plasma creatinine m easurement (mass/volume)on 07-22-2022 Creatinine [Mass/Vol] 0.80 mg/dL 0.70-1.30 [facility] Work Phone: Comment on above: The validity of the calculated GFR & GFRAA in patients over 70 years has not been determined. Clinical correlation is essential. Serum or plasma urea nitroge n measurement (mass/volume)on 07-22-2022 Urea nitrogen [Mass/Vol] 13 mg/dL 7-18 [facility] Work Phone: Thin prep Papanicolaou smear with manual screeningon 07-22-2022 Thin prep Papanicolaou smear with manual screening 5 5-15 [facility] Work Phone: Routine EKG Treadmill Stress Teston 06-20-2021 Routine EKG Treadmill Stress Test Patient Name: JORGITO FRAGA Ultrasound ACCESSION EXAM DATE/TIME PROCEDURE ORDERING PROVIDER [id number] 06/20/2021 15:28 EDT Routine EKG Treadmill MD BANDA JASON UMANA Stress Test Reason For Exam (Routine EKG Treadmill Stress Test) Chest pain Report EXERCISE ECG STRESS TEST Demetri Protocol PATIENT: Jorgito Fraga STUDY DATE: 06/20/2021 : 1965 AGE: 55 HT/WT: 188 cm (74 150 kg (330 in) lb) GENDER: M BP: 139 / 78 LOCATION: [address] STATUS: *ORDERING PHYSICIAN: [...] peak heart rate [place] blood [place] [address] mm Hg/min. Functional capacity is average. Peak [...] pm Signed by: MD MCKNIGHT KENNETH D [place] [facility] Echo 2D Doppler Coloron 10-0 TRANSTHORACIC ECHOCARDIOGRAM PATIENT: Jorgito Fraga STUDY DATE: 08/30/2019 : 1965 AGE: 53 HT/WT: 188 cm (74 136.1 kg in) (299.4 lb) GENDER: M BP: 147 / 88 LOCATION: [facility] PATIENT [facility]patient [facility] STATUS: *ORDERING PHYSICIAN: * Mallorie Ambrosio *READING PHYSICIAN: * Kayla, *DENTAL HYGIENE ADMINISTRATIVE ASSISTANT: Liliana Reeves MD [facility], AE -------- INDICATIONS: Non-ischemic cardiomyopathy (I42.8). Tachycardia [...] Lala Garza MD 08/30/2019 15:15 Prior Signatures: [facility], [facility] Incoming Cardiology Results From [employer] - 08/30/2019 3:15 PM EDT TRANSTHORACIC ECHOCARDIOGRAM PATIENT: Jorgito Fraga STUDY DATE: 08/30/2019 : 1965 AGE: 53 HT/WT: 188 cm (74 136.1 kg in) (299.4 lb) GENDER: M BP: 147 / 88 LOCATION: [facility] PATIENT Outpatient [facility] Center STATUS: *ORDERING PHYSICIAN: * Mallorie Ambrosio *READING PHYSICIAN: * Kayla, *DENTAL HYGIENE ADMINISTRATIVE ASSISTANT: * Kristen Reeves MD RDCS, AE -------- [...] Lala Garza MD 08/30/2019 15:15 Prior Signatures: [place], [place] Basic Metabolic Panelon Anion gap [Moles/Vol] 10 mmol/L [place] Calcium [Mass/Vol] 9.4 mg/dL 8.4 - 10. 4 mg/dL [place] Chloride [Moles/Vol] 102 mmol/L 98 - 10 7 mmol/L [place] CO2 [Moles/Vol] 27 mmol/L 22 - 30 mmol/L [place] Creatinine [Mass/Vol] 0.59 mg/dL 0.52 - 1.25 mg/dL [place] EGFR IF NonAfrican [place] Islander >60.0 >60 mL/min [place] Comment on above: Source- MDRD equatio n with creatinine calibration to IDMS(NKDEP) eGFR not recommended for drug dose adjustment GFR/1.73 sq M predicted among blacks MDRD (S/P/Bld) [Vol rate/Area] mL/min/{1.73_m2} >60 mL/min [place] Glucose [Mass/Vol] 97 mg/dL 70 - 100 mg/dL [place] Potassium [Moles/Vol] 4.3 mmol/L 3.5 - 5.1 mmol/L [place] Sodium [Moles/Vol] 139 mmol/L 135 - 145 mmol/L [place] Urea nitrogen [Mass/Vol] 14 mg/dL 7 - 20 mg/dL [place] EKG 12 Leadon 06-30-2019 [place], [facility] Incoming Cardiology Results From [employer] - 06/30/2019 8:55 AM EDT [facility] Test Date: 2019-06-29 Pat Name: Jorgitoregina Fraga Department: 27 Room: 1438 Gender: M Car Porter: SANDEEP : 1965 Requested By: Order Number: [id number] Reading MD: Jose Milligan Measurements Intervals [place] Rate: 76 P: 54 [place]: 173 QRS: -1 QRSD: 101 T: -5 QT: 411 QTc: 463 Interpretive Statements Sinus rhythm Abnormal R-wave progression, early transition Borderline T abnormalities, inferior leads Compared to ECG 06/29/2019 14:07:39 Sinus bradycardia no longer present T-wave abnormality still present Electronically Signed On 06-30-2019 8:53:55 EDT by [facility] Test Date: 2019-06-29 Pat Name: Jorgitoregina Fraga Department: 27 Room: 1438 Gender: M Car Porter: SANDEEP : 1965 Requested By: Order Number: [id number] Reading MD: Jose Milligan Measurements Intervals [place] Rate: 76 P: 54 AK: 173 QRS: -1 QRSD: 101 T: -5 QT: 411 QTc: 463 Interpretive Statements Sinus rhythm Abnormal R-wave progression, early transition Borderline T abnormalities, inferior leads Compared to ECG 06/29/2019 14:07:39 Sinus bradycardia no longer present T-wave abnormality still present Electronically Signed On 06-30-2019 8:53:55 EDT by [employer] [facility] Test Date: 2019-06-29 Pat Name: Jorgito Fraga Department: 1A4W Room: 1438 Gender: M Car Porter: JESSIKA : 1965 Requested By: Order Number: [id number] Reading MD: Jose Milligan Measurements Intervals [place] Rate: 56 P: -10 AK: 200 QRS: -7 QRSD: 101 T: -16 QT: 441 QTc: 426 Interpretive Statements Sinus bradycardia Borderline T abnormalities, inferior leads Compared to ECG 06/29/2019 11:00:13 Atrial fibrillation no longer present T-wave abnormality still present Electronically Signed On 06-30-2019 8:50:46 EDT by [facility], [facility], [facility] [place] Incoming Cardiology [facility] - 06/30/2019 8:51 AM EDT [facility] Test Date: 2019-06-29 Pat Name: Jorgito Fraga Department: 1A4 Room: 1438 Gender: M Car Porter: JESSIKA LUTZB: 1965 Requested By: Order Number: [id number] Reading MD: Jose Milligan Measurements Intervals [place] Rate: 56 P: -10 AK: 200 QRS: -7 QRSD: 101 T: -16 QT: 441 QTc: 426 Interpretive Statements Sinus bradycardia Borderline T abnormalities, inferior leads Compared to ECG 06/29/2019 11:00:13 Atrial fibrillation no longer present T-wave abnormality still present Electronically Signed On 06-30-2019 8:50:46 EDT by [facility], [facility] Incoming Cardiology Results From [facility] - 06/30/2019 8:48 AM EDT [facility] Test Date: 2019-06-29 Pat Name: Jorgito Fraga Department: 1A4 Room: 1438 Gender: M Car Porter: JESSIKA LUTZB: 1965 Requested By: Order Number: [id number] Reading MD: Jose Milligan Measurements Intervals [place] Rate: 92 P: AK: QRS: -2 QRSD: 100 T: -13 QT: 403 QTc: 499 Interpretive Statements Atrial fibrillation Abnormal R-wave progression, early transition Borderline T abnormalities, inferior leads Borderline prolonged QT interval Compared to ECG 06/28/2019 23:02:04 No significant changes Electronically Signed On 06-30-2019 8:47:13 EDT by [facility] Test Date: 2019-06-29 Pat Name: Jorgito Fraga Department: 1A4 Room: 1438 Gender: M Car Porter: JESSIKA : 1965 Requested By: Order Number: [id number] Reading MD: Jose Milligan Measurements Intervals [place] Rate: 92 P: AK: QRS: -2 QRSD: 100 T: -13 QT: 403 QTc: 499 Interpretive Statements Atrial fibrillation Abnormal R-wave progression, early transition Borderline T abnormalities, inferior leads Borderline prolonged QT interval Compared to ECG 06/28/2019 23:02:04 No significant changes Electronically Signed On 06-30-2019 8:47:13 EDT by [email or web address] [place], [place] Magnesiumon 06-30-2019 Magnesium [Mass/Vol] 1.9 mg/dL 1.6 - 2 .3 mg/dL [place] Otheron 06-30-2019 Test Performed by [address] [address] [place] Basic Metabolic Panelon Anion gap [Moles/Vol] 10 mmol/L [place] Calcium [Mass/Vol] 9.4 mg/dL 8.4 - 10. 4 mg/dL [place] Chloride [Moles/Vol] 103 mmol/L 98 - 10 7 mmol/L [place] CO2 [Moles/Vol] 26 mmol/L 22 - 30 mmol/L [place] Creatinine [Mass/Vol] 0.59 mg/dL 0.52 - 1.25 mg/dL [place] EGFR IF NonAfrican [place] Islander >60.0 >60 mL/min [place] Comment on above: Source- MDRD equatio n with creatinine calibration to IDMS(NKDEP) eGFR not recommended for drug dose adjustment GFR/1.73 sq M predicted among blacks MDRD (S/P/Bld) [Vol rate/Area] mL/min/{1.73_m2} >60 mL/min [place] Glucose [Mass/Vol] 110 mg/dL High 70 - 100 mg/dL [place] Interpretation and review of laboratory results Abnormal [place] Potassium [Moles/Vol] 4.4 mmol/L 3.5 - 5.1 mmol/L [place] Sodium [Moles/Vol] 139 mmol/L 135 - 145 mmol/L [place] Urea nitrogen [Mass/Vol] 17 mg/dL 7 - 20 mg/dL [place] CARDIOLOGY REPORTon 06-29-20 19 Feliberto Banad M D - 06/29/2019 3:45 PM EDT [facility] PATIENT: JORGITO FRAGA MEDICAL RECORD#: [...] cardioversion from atrial fibrillation to sinus rhythm. [facility] Job ID: [id number] Feliberto Banda MD DOD: 06/29/2019 01:22 P RADHA/stephanie DOT: 06/29/2019 03:45 P Job Number: [id number] Document Number: [id number] cc: Feliberto Banda MD [address] [place] [address] 300 [facility] [address] [facility], [place] EKG 12 Leadon 06-29-2019 [facility] [place] Test Date: 2019-06-28 Pat Name: Jorgito Fraga Department: 1A4W Room: 1438 Gender: M Car Porter: YBMM : 1965 Requested By: Order Number: [id number] Reading MD: Frankie Cerda Measurements Intervals [place] Rate: 93 P: AK: QRS: -4 QRSD: 98 T: -21 QT: 384 QTc: 478 Interpretive Statements Atrial fibrillation Borderline T abnormalities, inferior leads Borderline prolonged QT interval Electronically Signed On 06-29-2019 20:30:44 EDT by Frankie Cerda [facility], [facility], [facility] [place] Incoming Cardiology Results From [facility] - 06/29/2019 8:31 PM EDT [facility] Test Date: 2019-06-28 Pat Name: Jorgito Fraga Department: 1A4W Room: 1438 Gender: M Car Porter: PAUL : 1965 Requested By: Order Number: [id number] Reading MD: Frankie Cerda Measurements Intervals [place] Rate: 93 P: AK: QRS: -4 QRSD: 98 T: -21 QT: 384 QTc: 478 Interpretive Statements Atrial fibrillation Borderline T abnormalities, inferior leads Borderline prolonged QT interval Electronically Signed On 06-29-2019 20:30:44 EDT by [place], [facility] [place] Incoming Cardiology Results From [facility] - 06/29/2019 8:19 PM EDT [facility] Test Date: 2019-06-28 Pat Name: Jorgito Fraga Department: 1A4W Room: 1438 Gender: M Car Porter: COOPER : 1965 Requested By: Order Number: [id number] Reading : Frankie Cerda Measurements Intervals [place] Rate: 97 P: AK: QRS: 6 QRSD: 100 T: -12 QT: 394 QTc: 501 Interpretive Statements Atrial fibrillation Prolonged QT interval Electronically Signed On 06-29-2019 20:18:56 EDT by [place] [facility] Test Date: 2019-06-28 Pat Name: Jorgito Fraga Department: 1A4W Room: 1438 Gender: M Car Porter: COOPER : 1965 Requested By: Order Number: [id number] Reading : Frankie Cerda Measurements Intervals [place] Rate: 97 P: AK: QRS: 6 QRSD: 100 T: -12 QT: 394 QTc: 501 Interpretive Statements Atrial fibrillation Prolonged QT interval Electronically Signed On 06-29-2019 20:18:56 EDT by Frank[place] Magnesiumon 06-29-2019 Magnesium [Mass/Vol] 1.9 mg/dL 1.6 - 2 .3 mg/dL [place] Otheron 06-29-2019 Test Performed by [employer] [facility], [address] [place] [address] [place] Basic Metabolic Panelon Anion gap [Moles/Vol] 9 mmol/L [place] Calcium [Mass/Vol] 9.3 mg/dL 8.4 - 10. 4 mg/dL [place] Chloride [Moles/Vol] 104 mmol/L 98 - 10 7 mmol/L [place] CO2 [Moles/Vol] 25 mmol/L 22 - 30 mmol/L [place] Creatinine [Mass/Vol] 0.65 mg/dL 0.52 - 1.25 mg/dL [place] EGFR IF NonAfrican [place] Islander >60.0 >60 mL/min [place] Comment on above: Source- MDRD equatio n with creatinine calibration to IDMS(NKDEP) eGFR not recommended for drug dose adjustment GFR/1.73 sq M predicted among blacks MDRD (S/P/Bld) [Vol rate/Area] mL/min/{1.73_m2} >60 mL/min [place] Glucose [Mass/Vol] 106 mg/dL High 70 - 100 mg/dL [place] Interpretation and review of laboratory results Abnormal [place] Potassium [Moles/Vol] 4.4 mmol/L 3.5 - 5.1 mmol/L [place] Sodium [Moles/Vol] 138 mmol/L 135 - 145 mmol/L [place] Urea nitrogen [Mass/Vol] 17 mg/dL 7 - 20 mg/dL [place] EKG 12 Lead[place] 06-28-2019 [facility] Test Date: 2019-06-27 Pat Name: Jorgito Fraga Department: 1A4W Room: 1438 Gender: M Car Porter: YB : 1965 Requested By: Order Number: [id number] Reading MD: Miguel Ansari Measurements Intervals [place] Rate: 102 P: AK: QRS: -5 QRSD: 100 T: -17 QT: 380 QTc: 496 Interpretive Statements Atrial fibrillation Borderline T abnormalities, inferior leads Electronically Signed On 06-28-2019 12:55:17 EDT by Miguel Ansari [place], [facility] [place] Incoming Cardiology Results From [facility] - 06/28/2019 12:56 PM EDT [facility] Test Date: 2019-06-27 Pat Name: Jorgito Fraga Department: 1A4W Room: 1438 Gender: M Car Porter: YB : 1965 Requested By: Order Number: [id number] Reading : Miguel Ansari Measurements Intervals [place] Rate: 102 P: AK: QRS: -5 QRSD: 100 T: -17 QT: 380 QTc: 496 Interpretive Statements Atrial fibrillation Borderline T abnormalities, inferior leads Electronically Signed On 06-28-2019 12:55:17 EDT by Miguel [place], [place] EKG 12 leadon 06-28-2019 [place], [facility] [place] Incoming Cardiology Results From [facility] - 06/28/2019 5:41 PM EDT [facility] Test Date: 2019-06-27 Pat Name: Jorgito Fraga Department: 1A4W Room: 1438 Gender: M Car Porter: [place] : 1965 Requested By: Order Number: [id number] Reading : Miguel Ansari Measurements Intervals [place] Rate: 98 P: AK: QRS: -6 QRSD: 96 T: -15 QT: 351 QTc: 449 Interpretive Statements Atrial fibrillation Borderline T abnormalities, inferior leads Electronically Signed On 06-28-2019 17:40:31 EDT by Miguel Ansari [place] [facility] Test Date: 2019-06-27 Pat Name: Jorgito Fraga Department: 1A4W Room: 1438 Gender: M Car Porter: [place] : 1965 Requested By: Order Number: [id number] Reading HARVINDER Ansari Measurements Intervals [place] Rate: 98 P: AK: QRS: -6 QRSD: 96 T: -15 QT: 351 QTc: 449 Interpretive Statements Atrial fibrillation Borderline T abnormalities, inferior leads Electronically Signed On 06-28-2019 17:40:31 EDT by Miguel Ansari [place] Magnesiumon 06-28-2019 Magnesium [Mass/Vol] 1.9 mg/dL 1.6 - 2 .3 mg/dL [place] Otheron 06-28-2019 Test Performed by [facility], [address] [place] [address] [place] Basic Metabolic Panelon Anion gap [Moles/Vol] 11 mmol/L [place] Calcium [Mass/Vol] 9.4 mg/dL 8.4 - 10. 4 mg/dL [place] Chloride [Moles/Vol] 102 mmol/L 98 - 10 7 mmol/L [place] CO2 [Moles/Vol] 27 mmol/L 22 - 30 mmol/L [place] Creatinine [Mass/Vol] 0.92 mg/dL 0.52 - 1.25 mg/dL [place] EGFR IF NonAfrican [place] Islander >60.0 >60 mL/min [place] Comment on above: Source- MDRD equatio n with creatinine calibration to IDMS(NKDEP) eGFR not recommended for drug dose adjustment GFR/1.73 sq M predicted among blacks MDRD (S/P/Bld) [Vol rate/Area] mL/min/{1.73_m2} >60 mL/min [place] Glucose [Mass/Vol] 86 mg/dL 70 - 100 mg/dL [place] Potassium [Moles/Vol] 4.4 mmol/L 3.5 - 5.1 mmol/L [place] Sodium [Moles/Vol] 140 mmol/L 135 - 145 mmol/L [place] Urea nitrogen [Mass/Vol] 16 mg/dL 7 - 20 mg/dL [place] [facility] 06-27-2019 Erythrocyte distribution width (RBC) [Ratio] 14.0 % 11.5 - 14.5 % [place] Hematocrit (Bld) [Volume fraction] 40.7 % 40 - 52 % [place] Hemoglobin (Bld) [Mass/Vol] 14.2 g/dL 13 - 18 g/dL [place] Interpretation and review of laboratory results Abnormal [place] MCH (RBC) [Entitic mass] 30.0 pg 26 - 34 pg [place] MCHC (RBC) [Mass/Vol] 34.8 % 32 - 36 % [place] MCV (RBC) [Entitic vol] 86.4 fL 80 - 98 fL [place] Platelet mean volume (Bld) [Entitic vol] 7.4 fL 7.4 - 10.4 fL [place] Platelets (Bld) [#/Vol] 295 10*3/uL 140 - 440 10*3/uL [place] RBC (Bld) [#/Vol] 4.71 10*6/uL 4.4 - 5.9 10*6/uL [place] WBC (Bld) [#/Vol] 12.1 10*3/uL High 3.6 - 10.7 10*3/uL [place] Test Performed by [address] Magnesiumon 06-27-2019 Magnesium [Mass/Vol] 2.0 mg/dL 1.6 - 2 .3 mg/dL [place] Otheron 06-27-2019 Test Performed by [address] TSH without Reflexon 019 TSH Qn 4.454 u[IU]/mL 0.465 - 4.68 u[IU]/mL [place] Test Performed by [address] Vital Signs Date Time Vital Sign Value Performing Clinician Med david 05-21-2025 14:56-0400 Body height 188 cm Fernando Garcia MD Work Phone: [facility] 05-21-2025 14:56-0400 Body mass index (BMI) [Ratio] 43.24 kg/m2 Fernando Garcia MD Work Phone: [facility] 05-21-2025 14:56-0400 Body weight 152.77 kg Fernando Garcia MD Work Phone: [facility] 05-21-2025 14:56-0400 Diastolic blood pressure 85 mm[Hg] Fernando Garcia MD Work Phone: [facility] 05-21-2025 14:56-0400 Heart rate 66 /min Fernando Garcia MD Work Phone: [facility] 05-21-2025 14:56-0400 Systolic blood pressure 132 mm[Hg] Fernando Garcia MD Work Phone: [facility] 04-13-2025 08:33-0400 Body height 187.[address] Curry Banda MD Work Phone: [facility] 04-13-2025 08:33-0400 Body mass index (BMI) [Ratio] 43 kg/m2 Dr. Curry Banda MD Work Phone: [facility] 04-13-2025 08:33-0400 Body temperature 97.4 [degF] Dr. Curry Banda MD Work Phone: [facility] 04-13-2025 08:33-0400 Body weight 151.[address] Curry Banda MD Work Phone: [facility] 04-13-2025 08:33-0400 Diastolic blood pressure 79 mm[Hg] Dr. Curry Banda MD Work Phone: [facility] 04-13-2025 08:33-0400 Heart rate 98 /min Dr. Curry Banda MD Work Phone: [facility] 04-13-2025 08:33-0400 Respiratory rate 18 /min Dr. Curry Banda MD Work Phone: [facility] 04-13-2025 08:33-0400 SaO2% (BldA) [Mass fraction] 99 % Dr. Curry Banda MD Work Phone: [facility] 04-13-2025 08:33-0400 Systolic blood pressure 164 mm[Hg] Dr. Curry Banda MD Work Phone: [facility] 12-08-2024 14:45-0500 Body height 188 cm Jeanette Dixon AP RN - [employer] WORKER Work Phone: [facility] 12-08-2024 14:45-0500 Body mass index (BMI) [Ratio] 43.01 kg/m2 Jeanette Dixon [employer] - [employer] WORKER Work Phone: [facility] [place] [facility] 12-08-2024 14:45-0500 Body weight 151.96 kg Jeanette ROBINS RN - [employer] WORKER Work Phone: [facility] [place] [facility] 12-08-2024 14:45-0500 Diastolic blood pressure 72 mm[Hg] Jeanette Dixon [employer] - [employer] WORK[employer] Work Phone: [facility] [place] [facility] 12-08-2024 14:45-0500 Heart rate 65 /min Jeanette ROBINS RN - [employer] WORK[employer] Work Phone: [facility] [place] [facility] 12-08-2024 14:45-0500 SaO2% (BldA) [Mass fraction] 94 % Jeanette Dixon [employer]BER - [employer] WORKER Work Phone: [facility] [place] [facility] 12-08-2024 14:45-0500 Systolic blood pressure 120 mm[Hg] Jeanette Dixon [employer] - [employer] WORK[employer] Work Phone: [facility] [place] [facility] 05-16-2024 16:02-0400 Body height 188 cm Leann Bernard MD Work Phone: [facility] [place] [facility] 05-16-2024 16:02-0400 Body mass index (BMI) [Ratio] 44.68 kg/m2 Leann Bernard MD Work Phone: [facility] [place] [facility] 05-16-2024 16:02-0400 Body weight 157.85 kg Leann Bernard MD Work Phone: [facility] [place] [facility] 05-16-2024 16:02-0400 Diastolic blood pressure 68 mm[Hg] Leann Bernard MD Work Phone: [facility] [place] [facility] 05-16-2024 16:02-0400 Heart rate 78 /min Leann Bernard MD Work Phone: [facility] [place] [facility] 05-16-2024 16:02-0400 Systolic blood pressure 112 mm[Hg] Leann Bernard MD Work Phone: [facility] [place] [facility] 03-03-2024 15:19-0400 Body height 188 cm Meet Jt COLEY Work Phone: [facility] [place] [facility] 03-03-2024 15:19-0400 Body mass index (BMI) [Ratio] 44.04 kg/m2 Meet Jt COLEY Work Phone: [facility] [place] [facility] 03-03-2024 15:19-0400 Body weight 155.58 kg Meet Jt COLEY Work Phone: [facility] [place] [facility] 03-03-2024 15:19-0400 Diastolic blood pressure 78 mm[Hg] Meet Jt COLEY Work Phone: [facility] [place] [facility] 03-03-2024 15:19-0400 Heart rate 67 /min Meet Jt COLEY Work Phone: [facility] [place] [facility] 03-03-2024 15:19-0400 SaO2% (BldA) [Mass fraction] 95 % Meet Jt COLEY Work Phone: [facility] [place] [facility] 03-03-2024 15:19-0400 Systolic blood pressure 128 mm[Hg] Meet Jt COLEY Work Phone: [facility] [place] [facility] 12-20-2023 12:51-0500 Body mass index (BMI) [Ratio] 44.17 kg/m2 Jeanette Dixon [employer] - [employer] WORK[employer] Work Phone: [facility] [place] [facility] 12-20-2023 12:51-0500 Body weight 156.04 kg Jeanette ROBINS RN - [employer] WORK[employer] Work Phone: [facility] [place] [facility] 12-20-2023 12:51-0500 Diastolic blood pressure 80 mm[Hg] Jeanette Dixon [employer] - [employer] WORK[employer] Work Phone: [facility] [place] [facility] 12-20-2023 12:51-0500 Heart rate 67 /min Jeanette ROBINS RN - [employer] WORK[employer] Work Phone: [facility] [place] [facility] 12-20-2023 12:51-0500 SaO2% (BldA) [Mass fraction] 95 % Jeanette Dixon [employer] - [employer] WORK[employer] Work Phone: [facility] [place] [facility] 12-20-2023 12:51-0500 Systolic blood pressure 110 mm[Hg] Jeanette Dixon [employer] - [employer] WORK[employer] Work Phone: [facility] [place] [facility] 12-02-2023 13:33-0500 Diastolic blood pressure 68 mm[Hg] Meet Jt COLEY Work Phone: [facility] [place] [facility] 12-02-2023 13:33-0500 Heart rate 70 /min Meet Jt COLEY Work Phone: [facility] [place] [facility] 12-02-2023 13:33-0500 SaO2% (BldA) [Mass fraction] 98 % Meet Jt COLEY Work Phone: [facility] [place] [facility] 12-02-2023 13:33-0500 Systolic blood pressure 104 mm[Hg] Meet Jt COLEY Work Phone: [facility] [place] [facility] 12-02-2023 13:00-0500 Respiratory rate 18 /min Meet Jt COLEY Work Phone: [facility] [place] [facility] 12-02-2023 11:05-0500 Body temperature 97 [degF] Meet Jt COLEY Work Phone: [facility] [place] [facility] 12-02-2023 07:45-0500 Body height 188 cm Meet Jt COLEY Work Phone: [facility] [place] 12-02-2023 07:45-0500 Body mass index (BMI) [Ratio] 44.44 kg/m2 Meet Jt COLEY Work Phone: [facility] [place] [facility] 12-02-2023 07:45-0500 Body weight 157 kg Meet Jt COLEY Work Phone: [facility] [place] 10-28-2023 15:30-0500 Body height 188 cm Leann Bernard MD Work Phone: [facility] [place] 10-28-2023 15:30-0500 Body mass index (BMI) [Ratio] 44.55 kg/m2 Leann Bernard MD Work Phone: [facility] [place] 10-28-2023 15:30-0500 Body weight 157.4 kg Leann Bernard MD Work Phone: [facility] [place] 10-28-2023 15:30-0500 Diastolic blood pressure 74 mm[Hg] Leann Bernard MD Work Phone: [facility] [place] 10-28-2023 15:30-0500 Heart rate 67 /min Leann Bernard MD Work Phone: [facility] [place] [facility] 10-28-2023 15:30-0500 Systolic blood pressure 126 mm[Hg] Leann Bernard MD Work Phone: [facility] [place] 10-22-2023 13:15-0500 Body height 188 cm Meet Jt COLEY Work Phone: [facility] [place] [facility] 10-22-2023 13:15-0500 Body mass index (BMI) [Ratio] 44.32 kg/m2 Meet Jt COLEY Work Phone: [facility] [place] [facility] 10-22-2023 13:15-0500 Body weight 156.58 kg Meet Jt COLEY Work Phone: [facility] [place] [facility] 10-22-2023 13:15-0500 Diastolic blood pressure 78 mm[Hg] Meet Jt COLEY Work Phone: [facility] [place] [facility] 10-22-2023 13:15-0500 Heart rate 68 /min Meet Jt COLEY Work Phone: [facility] [place] [facility] 10-22-2023 13:15-0500 SaO2% (BldA) [Mass fraction] 93 % Meet Jt COLEY Work Phone: [facility] [place] 10-22-2023 13:15-0500 Systolic blood pressure 130 mm[Hg] Meet Jt COLEY Work Phone: [facility] 06-28-2023 08:20-0400 Body height 188 cm Feliberto Banda MD Work Phone: [facility] [place] [facility] 06-28-2023 08:20-0400 Body mass index (BMI) [Ratio] 43.78 kg/m2 Feliberto Banda MD Work Phone: [facility] 06-28-2023 08:20-0400 Body weight 154.68 kg Feliberto Banda MD Work Phone: [facility] 06-28-2023 08:20-0400 Diastolic blood pressure 80 mm[Hg] Feliberto Banda MD Work Phone: [employer] [facility] 06-28-2023 08:20-0400 Heart rate 62 /min Feliberto Banda MD Work Phone: [facility] 06-28-2023 08:20-0400 SaO2% (BldA) [Mass fraction] 99 % Feliberto Banda MD Work Phone: [facility] 06-28-2023 08:20-0400 Systolic blood pressure 136 mm[Hg] Feliberto Banda MD Work Phone: [facility] 06-30-2019 11:32-0400 Body Temperature 97.59 [degF] Feliberto [employer] [place] 06-30-2019 11:32-0400 BP Diastolic 93 mm[Hg] [place]erto [place] 06-30-2019 11:32-0400 BP Systolic 144 mm[Hg] [place]erto [place] 06-30-2019 11:32-0400 Pulse (Heart Rate) 75 /min [place]erto [place] 06-30-2019 11:32-0400 Pulse Oximetry 97 % [place]iberto [place] 06-30-2019 11:32-0400 Respiratory Rate 20 /min Feliberto [employer] [place] 06-27-2019 19:06-0400 BMI (Body Mass Index) 41.65 kg/m2 [place]iberto [place] 06-27-2019 19:06-0400 Body weight 147.15 kg Feliberto [place] 06-27-2019 19:06-0400 Height 188 cm Feliberto [employer] [place] Encounters Encounter Date Encounter Type Care Provider Facility Start: 06-25-2025 End: 06-25-2025 Refill Leann Bernard MD Work Phone: [facility] Comment on above: Graves disease Start: 06-11-2025 End: 06-11-2025 Refill Jeanette Dixon [employer]BER - [employer] WORK[employer] Work Phone: [facility] Start: 05-31-2025 Encounter for juan l adult medical examination without abnormal findings [facility] Start: 05-26-2025 End: 05-26-[address] Curry Banda MD Work Phone: -Laboratory Start: 05-26-2025 End: 05-26-[address] Fernando Garcia MD -Laboratory Work Phone: Start: 05-26-2025 End: 05-26-2025 ambulatory [facility] Facility:[facility] Start: 05-21-2025 End: 05-21-2025 Office outpatient visit 25 minutes Fernando Garcia MD Work Phone: [facility] Comment on above: Graves disease (Prim simon Dx) Start: 05-21-2025 End: 05-21-[address] [facility] Start: 04-13-2025 End: 04-13-2025 Patient encounter procedure Paulina Tinsley [employer] Work Phone: Start: 04-13-2025 End: 04-13-2025 ambulatory Paulina Tinsley Facility:[facility] Start: 02-02-2025 End: 02-02-2025 Telephone encounter Feliberto Banda MD Work Phone: [facility] [place] Comment on above: Advice Only Start: 12-21-2024 End: 12-21-2024 Telephone encounter Shannon Cheryl Aguila [employer]BER - [employer] WORKER Work Phone: [facility] Comment on above: Labs Only Start: 12-12-2024 End: 12-12-2024 ambulatory JOSUÉHARSHA RUSSTARORAFALH Facility:[facility] Start: 12-08-2024 End: 12-08-2024 Office outpatient visit 25 minutes Jeanette Dixon [employer] MEMBER - [employer] WORKER Work Phone: [facility] Comment on above: Obstructive sleep ap jyoti (Primary Dx); Paroxysmal atrial fibrillation (HCC); Typical atrial flutter (HCC) Start: 12-08-2024 End: 12-08-2024 ambulatory [facility] Start: 11-06-2024 End: 11-06-2024 Telephone encounter Meet Олег Waters MD Work Phone: [facility] Start: 11-03-2024 End: 11-03-2024 ambulatory [facility] Start: 11-03-2024 End: 11-03-2024 Subsequent hospital visit by physician Jeanette Dixon [employer] MEMBER - [employer] WORKER Work Phone: [facility] [address] [facility] Comment on above: Other chest pain Typical atrial flutt er (HCC) Start: 09-14-2024 End: 09-14-2024 Orders Only Jeanette Dixon [employer] MEMBER - [employer] WORKER Work Phone: [facility] Comment on above: Other chest pain (Pr imary Dx) Start: 09-12-2024 End: 09-14-2024 Telephone encounter Meet Олег Waters MD Work Phone: [facility] Comment on above: Other (Scheduling/) Start: 08-04-2024 End: 08-04-2024 [facility] Facility:[facility] Start: 07-08-2024 End: 07-08-2024 ambulatory [facility] Facility:[facility] Start: 06-27-2024 End: 06-27-2024 Refill Leann Bernard MD Work Phone: [facility] Endocrinology Comment on above: Graves disease (Prim simon Dx) Start: 06-23-2024 End: 06-23-2024 ambulatory [facility] Facility:[facility] Start: 06-08-2024 End: 06-15-2024 Telephone encounter Leann Bernard MD Work Phone: [facility] Endocrinology Comment on above: Request For Order(s) Start: 05-16-2024 End: 05-16-2024 Office outpatient visit 15 minutes Leann Bernard MD Work Phone: [facility] Endocrinology Comment on above: Graves disease (Prim simon Dx) Start: 03-16-2024 Refill [facility] [employer] MEMBER - [employer] WORKER Work Phone: [facility] Cardiology Start: 03-08-2024 Telephone encounter Meet Олег banda MD Work Phone: [facility] Cardiology Comment on above: Cancelled Appointmen t Start: 03-03-2024 End: 03-03-2024 Office outpatient visit 25 minutes Meet Олег Waters MD Work Phone: [facility] Card[facility] Comment on above: Paroxysmal atrial fi brillation (HCC) (Primary Dx); Typical atrial flutter (HCC) Start: 12-20-2023 End: 12-20-2023 Office outpatient visit 25 minutes Jeanette Dixon [employer] MEMBER - [employer] WORKER Work Phone: [facility] Comment on above: Paroxysmal atrial fi brillation (HCC) (Primary Dx); Typical atrial flutter (HCC) Start: 12-10-2023 Telephone encounter Meet Олег banda MD Work Phone: [facility] Cardiology Comment on above: Med Management (Eliq uis ) Start: 12-02-2023 End: 12-02-2023 Subsequent hospital visit by physician Meet Олег Waters MD Work Phone: [facility] Comment on above: Paroxysmal atrial fi brillation (HCC); Typical atrial flutter (HCC) Start: 11-29-2023 Refill Meet Олег Pinto Work Phone: [facility] Start: 11-19-2023 End: 11-19-2023 Office outpatient visit 15 minutes Jeanette Dixon [employer] FAC[employer] MEMBER - [employer] J[employer] WORKER Work Phone: [facility] Comment on above: Paroxysmal atrial fi brillation (HCC) (Primary Dx); Typical atrial flutter (HCC) Start: 11-19-2023 ambulatory [facility] [employer] MEMBER - [employer] J[employer] WORKER Work Phone: [facility] Start: 11-17-2023 End: 11-17-2023 ambulatory [facility] Work Phone: Start: 11-17-2023 End: 11-17-2023 Patient encounter procedure [facility]Labor[facility] Work Phone: Start: 10-28-2023 End: 10-28-2023 Office outpatient visit 15 minutes Leann Bernard MD Work Phone: [facility] Endocrinology Comment on above: Graves disease Start: 10-22-2023 End: 10-22-2023 Office outpatient visit 40 minutes Ezra Waters MD Work Phone: [facility] Comment on above: Paroxysmal atrial fi brillation (HCC) (Primary Dx); Typical atrial flutter (HCC) Start: 09-29-2023 Telephone encounter Leann Bernard MD Work Phone: [facility] Endocrinology Comment on above: thyroid lab results Start: 09-27-2023 Telephone encounter Leann Bernard MD Work Phone: [facility] Endocrinology Comment on above: thy stim immuno resu lt 09/24/23 Start: 09-24-2023 End: 09-24-2023 ambulatory [facility] Work Phone: Start: 09-24-2023 End: 09-24-2023 Patient encounter procedure [facility] Work Phone: Start: 09-20-2023 Telephone encounter Feliberto Banda MD Work Phone: [facility] Cardiology Comment on above: Lab orders Start: 09-15-2023 Refill Feliberto leslie MD Work Phone: [facility] Start: 06-28-2023 End: 06-28-2023 Office outpatient visit 15 minutes Feliberto Banda MD Work Phone: [facility] Comment on above: Paroxysmal atrial fi brillation (CMS/HCC) (HCC) Start: 06-19-2023 Refill Jeanette collins [employer] FAC[employer] MEMBER - [employer] J[employer] WORKER Work Phone: [facility] Start: 05-24-2023 End: 05-24-2023 ambulatory [facility] Work Phone: Start: 05-24-2023 End: 05-24-2023 Patient encounter procedure [facility] Work Phone: Start: 11-25-2022 Telephone encounter Leann Bernard MD Work Phone: Endocrinology [facility] Comment on above: Med Refill Start: 07-22-2022 End: 07-22-2022 ambulatory [facility] Work Phone: Start: 07-22-2022 End: 07-22-2022 Patient encounter procedure [facility] Start: 08-30-2019 End: 08-30-2019 Subsequent hospital visit by physician Mallorie Ambrosio Work Phone: [facility] Comment on above: Non-ischemic cardiom yopathy (HCC) Start: 06-27-2019 End: 06-30-2019 Evaluation and management of inpatient Feliberto Banda Work Phone: [facility] 4W TELEMETRY Procedures Date Procedure Procedure Detail Performing Clinician Start: 05-26-2025 Thyrotropin [Units/volume] in Serum or Plasma Jeanette Dixon [employer] MEMBER - [employer] WORKER Work Phone: Start: 12-12-2024 Thyrotropin [Units/volume] in Serum or Plasma Shannon Aguila [employer] FAC[employer]Y MEMBER - [employer] J[employer] WORKER Work Phone: Start: 12-08-2024 Ecg routine ecg w/least 12 lds trcg only w/o i&r Meet Олег Waters MD Work Phone: Start: 11-03-2024 TTE w or w/o contr, cont ECG Jeanette land [employer] MEMBER - [employer] WORKER Work Phone: Start: 03-03-2024 Ecg routine ecg w/least 12 lds trcg only w/o i&r Meet Олег Waters MD Work Phone: Start: 12-20-2023 Ecg routine ecg w/least 12 lds trcg only w/o i&r Meet Олег Waters MD Work Phone: Start: 12-02-2023 Ecg routine ecg w/least 12 lds trcg only w/o i&r Jeanette Oniel [employer] FAC[employer] MEMBER - [employer] J[employer] WORKER Work Phone: Start: 12-02-2023 Electrophysiology study Jeanette madrid [employer] FAC[employer] MEMBER - [employer] WORKER Work Phone: Start: 12-02-2023 End: 12-02-2023 POCT ACT Meet Олег Waters MD Work Phone: Start: 12-02-2023 Ecg routine ecg w/least 12 lds trcg only w/o i&r Jeanette Dixon [employer] FACULTY MEMBER - [employer] J[employer] WORKER Work Phone: Start: 11-26-2023 Lipid 1996 panel - Serum or Plasma Meet Jt COLEY Work Phone: Start: 11-17-2023 Thyrotropin [Units/volume] in Serum or Plasma Meet Jt COLEY Work Phone: Start: 10-22-2023 Ecg routine ecg w/least 12 lds trcg only w/o i&r Meet Олег Waters MD Work Phone: Start: 06-28-2023 Ecg routine ecg w/least 12 lds trcg only w/o i&r Feliberto Banda MD Work Phone: Start: 05-24-2023 Thyrotropin [Units/volume] in Serum or Plasma Feliberto Banda MD Work Phone: Start: 08-30-2019 Echo tthrc r-t 2d w/wom-mode compl spec&colr d Mallorie O'Shell Work Phone: Start: 06-30-2019 Assay of magnesium Chari Santos Work Phone: Start: 06-30-2019 Basic metabolic panel calcium total Chari N Magoolagdorothy Work Phone: Start: 06-29-2019 Ecg routine ecg w/least 12 lds w/i&r Feliberto Banda Work Phone: Start: 06-29-2019 Echo transesophag r-t 2d w/prb img acquisj i&r Feliberto Banda Work Phone: Start: 06-29-2019 Ecg routine ecg w/least 12 lds w/i&r Chari N Tom Work Phone: Start: 06-29-2019 EP NURSE PROCEDURE REPORT 3m Scanning Start: 06-29-2019 Ecg routine ecg w/least 12 lds w/i&r Chari N Magoolagdorothy Work Phone: Start: 06-29-2019 Assay of magnesium Chari N Antonioagdorothy Work Phone: Start: 06-29-2019 Basic metabolic panel calcium total Chari N Magoolagdorothy Work Phone: Start: 06-28-2019 Ecg routine ecg w/least 12 lds w/i&r Chari N Magoolagdorothy Work Phone: Start: 06-28-2019 Ecg routine ecg w/least 12 lds w/i&r Chari N Magoolagdorothy Work Phone: Start: 06-28-2019 Assay of magnesium Chari N Antonioagdorothy Work Phone: Start: 06-28-2019 Basic metabolic panel calcium total Chari N Magoolaghan Work Phone: Start: 06-27-2019 Ecg routine ecg w/least 12 lds w/i&r Chari N Magoolaghan Work Phone: Start: 06-27-2019 Ecg routine ecg w/least 12 lds w/i&r Chari N Magoolaghan Work Phone: Start: 06-27-2019 Assay of magnesium Chari N Magoolagdorothy Work Phone: Start: 06-27-2019 Assay of thyroid stimulating hormone tsh Chari N Magoolaghan Work Phone: Start: 06-27-2019 Basic metabolic panel [...] for Adults (1 - 1-dose 75+ series) [facility] Start: 11-26-2028 Lipid panel Lipid Panel [facility] Start: 2027 RSV Immunization aged 60 or older (1 - 1-dose 60+ series) RSV Immunization aged 60 or older (1 - 1-dose 60+ series) [facility] Start: 05-26-2026 Thyroid stimulating hormone measurement TSH Level [facility] Start: 12-24-2025 End: 12-24-2025 Patient encounter procedure 12/24/2025 8:40 AM EST Office Visit [facility] [address] [place] [address] [place] [phone] Fernando Garcia MD [address] [place] [address] [facility] Start: 12-12-2025 Thyroid stimulating hormone measurement TSH Level [facility] Start: 07-23-2025 Influenza vaccination [facility] Start: 07-13-2025 End: 07-13-2025 Patient encounter procedure 07/13/2025 3:15 PM EDT Office Visit [facility] Cardiology [facility] [address] [place] [phone] Ezra Waters MD [address] [place] [address] [facility] Start: 05-21-2025 End: 05-21-2025 Patient encounter procedure [facility] Start: 05-21-2025 End: 05-21-2026 Hepatic function 2000 panel - Serum or Plasma Hepatic function panel Lab Routine Graves disease Expected: 05/21/2025 (Approximate), Expires: 05/21/2026 [facility] Comment on above: Expected: 05/21/2025 (Approximate), Expi res: 05/21/2026 Start: 05-21-2025 End: 05-21-2026 Thyrotropin [Units/volume] in Serum or Plasma TSH Lab Routine Graves disease Expected: 05/21/2025 (Approximate), Expires: 05/21/2026 [facility] Work Phone: Comment on above: Expected: 05/21/2025 (Approximate), Expi res: 05/21/2026 Start: 05-21-2025 End: 05-21-2026 Thyroxine (T4) free [Mass/volume] in Serum or Plasma T4, free Lab Routine Graves disease Expected: 05/21/2025 (Approximate), Expires: 05/21/2026 [facility] Comment on above: Expected: 05/21/2025 (Approximate), Expi res: 05/21/2026 Start: 05-21-2025 End: 05-21-2026 Triiodothyronine (T3) Free [Mass/volume] in Serum or Plasma T3, free Lab Routine Graves disease Expected: 05/21/2025 (Approximate), Expires: 05/21/2026 [facility] Comment on above: Expected: 05/21/2025 (Approximate), Expi res: 05/21/2026 Start: 12-08-2024 End: 12-08-2024 Patient encounter procedure 12/08/2024 3:30 PM EST Office Visit [facility] Cardiology - [address] [phone] Jeanette Dixon, FRANCHESCA - [address] [address] [facility] - [place] Start: 11-17-2024 Thyroid stimulating hormone measurement TSH Level [facility] Start: 09-14-2024 End: 09-14-2026 Cardiac holter monitor (8- 15 days) Cardiac holter monitor (8- 15 days) [facility] Routine Typical atrial flutter (HCC) Expected: 09/14/2024, Expires: 09/14/2026 [facility] [employer] Work Phone: Comment on above: Expected: 09/14/2024, Expires: Start: 09-14-2024 End: 09-14-2026 Stress echocardiogram (TTE) exercise with contrast, bubble, strain, and 3D PRN Stress echocardiogram (TTE) exercise with contrast, bubble, strain, and 3D PRN CV Stress Echocardiography Routine Other chest pain Expected: 09/14/2024 (Approximate), Expires: 09/14/2026 [facility] [employer] Work Phone: Comment on above: Expected: 09/14/2024 (Approximate), Expi res: 09/14/2026 Start: 07-23-2024 COVID-19 Vaccine () COVID-19 Vaccine () [facility] Start: 07-23-2024 Influenza vaccination [facility] Start: 05-24-2024 Thyroid stimulating hormone measurement TSH Level [facility] Start: 05-16-2024 End: 05-16-2024 Patient encounter procedure [facility] Start: 05-16-2024 End: 05-16-2025 Thyrotropin [Units/volume] in Serum or Plasma TSH Lab Routine Graves disease Expected: 05/16/2024 (Approximate), Expires: 05/16/2025 [facility] [employer] Work Phone: Comment on above: Expected: 05/16/2024 (Approximate), Expi res: 05/16/2025 Start: 05-16-2024 End: 05-16-2025 Thyroxine (T4) free [Mass/volume] in Serum or Plasma T4, free Lab Routine Graves disease Expected: 05/16/2024 (Approximate), Expires: 05/16/2025 [facility] Comment on above: Expected: 05/16/2024 (Approximate), Expi res: 05/16/2025 Start: 05-16-2024 End: 05-16-2025 Triiodothyronine (T3) Free [Mass/volume] in Serum or Plasma T3, free Lab Routine Graves disease Expected: 05/16/2024 (Approximate), Expires: 05/16/2025 [facility] [employer] Comment on above: Expected: 05/16/2024 (Approximate), Expi res: 05/16/2025 Start: 04-07-2024 End: 04-07-2024 Patient encounter procedure [facility] [address] [facility] Card[facility] Start: 03-03-2024 End: 03-03-2026 Cardiac holter monitor (8- 15 days) Cardiac holter monitor (8- 15 days) [facility] Services Routine Typical atrial flutter (HCC) Expected: 03/03/2024, Expires: 03/03/2026 [facility] Work Phone: Comment on above: Expected: 03/03/2024, Expires: Start: 03-03-2024 End: 03-03-2026 Stress echocardiogram (TTE) exercise with contrast, bubble, strain, and 3D PRN Stress echocardiogram (TTE) exercise with contrast, bubble, strain, and 3D PRN CV Stress Echocardiography Routine Typical atrial flutter (HCC) Expected: 03/03/2024 (Approximate), Expires: 03/03/2026 [facility] Comment on above: Expected: 03/03/2024 (Approximate), Expi res: 03/03/2026 Start: 02-18-2024 End: 02-18-2024 Patient encounter procedure 02/18/2024 3:15 PM EDT Office Visit [facility] Cardiology [address] [place] [phone] Ezra Waters MD [address] [place] [address] [facility] Start: 01-05-2024 End: 01-05-2024 Patient encounter procedure 01/05/2024 10:30 AM EST Office Visit [facility] Cardiology [address] [place] [phone] Jeanette Dixon APRN - [place] [address] [address] [facility] Start: 12-20-2023 End: 12-20-2023 Patient encounter procedure [facility] Start: 12-02-2023 Lipid screen Lipid screen [place], [place] Start: 12-02-2023 End: 12-02-2023 Admission to [facility] day [facility] Comment on above: Ablation a-fib paroxysmal [06654 (CPT )] Start: 12-02-2023 Subsequent hospital visit by physician [facility] Comment on above: Paroxysmal atrial fibrillation (HCC); Typical atrial flutter (HCC) Start: 11-19-2023 End: 11-19-2023 Telemedicine consultation with patient 11/19/2023 2:30 PM EST Telemedicine [facility] Cardiology [address] [place] [phone] Jeanette Dixon, FRANCHESCA - GR[employer] JACK WORKER [address] [facility] [address] [place] [address] [facility] Start: 10-28-2023 End: 10-28-2023 Patient encounter procedure 10/28/2023 3:40 PM EST Office Visit [facility] Endocrinology [address] [facility] [address] [place] [address] Leann Bernard MD [address] [facility] [facility] [address] [place] [address] [facility] Endocrinology Start: 10-28-2023 End: 10-28-2024 Thyrotropin [Units/volume] in Serum or Plasma TSH Lab Routine Graves disease Expected: 10/28/2023 (Approximate), Expires: 10/28/2024 [facility] Work Phone: Comment on above: Expected: 10/28/2023 (Approximate), Expi res: 10/28/2024 Start: 10-28-2023 End: 10-28-2024 Thyroxine (T4) free [Mass/volume] in Serum or Plasma T4, free Lab Routine Graves disease Expected: 10/28/2023 (Approximate), Expires: 10/28/2024 [facility] Comment on above: Expected: 10/28/2023 (Approximate), Expi res: 10/28/2024 Start: 10-28-2023 End: 10-28-2024 Triiodothyronine (T3) Free [Mass/volume] in Serum or Plasma T3, free Lab Routine Graves disease Expected: 10/28/2023 (Approximate), Expires: 10/28/2024 [facility] Comment on above: Expected: 10/28/2023 (Approximate), Expi res: 10/28/2024 Start: 10-22-2023 End: 10-22-2024 Basic metabolic 1998 panel - Serum or Plasma Basic metabolic panel Lab Routine Paroxysmal atrial fibrillation (HCC) Expected: 10/22/2023 (Approximate), Expires: 10/22/2024 [facility] Comment on above: Expected: 10/22/2023 (Approximate), Expi res: 10/22/2024 Start: 10-22-2023 End: 10-22-2024 CBC panel - Blood by Automated count CBC Lab Routine Paroxysmal atrial fibrillation (HCC) Expected: 10/22/2023 (Approximate), Expires: 10/22/2024 [facility] Work Phone: Comment on above: Expected: 10/22/2023 (Approximate), Expi res: 10/22/2024 Start: 10-22-2023 End: 10-22-2023 Patient encounter procedure 10/22/2023 1:15 PM EST Office Visit [facility] Cardiology [address] [place] [address] Ezra Waters MD [address] [place], [place] [phone] [facility] Start: 08-24-2023 End: 08-24-2023 Patient encounter procedure 08/24/2023 3:30 PM EDT Office Visit [facility] Cardiology [address] [place] [address] Feliberto Banda MD [address] [id number] [facility] Start: 07-23-2023 COVID-19 Vaccine ( season) COVID-19 Vaccine ( season) [facility] Start: 07-23-2023 Influenza vaccination Influenza Vaccine (#1) [facility] Start: 04-13-2023 End: 04-13-2023 Patient encounter procedure 04/13/2023 Office Visit Endocrinology Leann Bernard MD [address] [facility] [address] [place] [address] Endocrinology [facility] Start: 02-16-2023 End: 02-16-2023 Patient encounter procedure 02/16/2023 Office Visit Cardiology Feliberto Banda MD [address] [place] [address] [facility] Start: 07-23-2022 Influenza vaccination Influenza Vaccine (#1) [facility] Start: 04-10-2021 COVID-19 Vaccine (2 - Booster for Moderna series) COVID-19 Vaccine (2 - Booster for Moderna series) [facility] Start: 04-10-2021 COVID-19 Vaccine (2 - Moderna series) COVID-19 Vaccine (2 - Moderna series) [facility] Start: 03-13-2021 COVID-19 Vaccine (2 - Moderna series) COVID-19 Vaccine (2 - Moderna series) [facility] Start: 06-27-2020 Thyroid stimulating hormone measurement TSH Level [facility] Start: 10-23-2019 End: 10-23-2019 Office Visit 10/23/2019 Office Visit Cardiology Feliberto Banda MD [address] [place] [address] [phone] [facility] Start: 07-23-2019 Influenza vaccination Flu vaccine (#1) [facility] [place] Start: 07-17-2019 End: 07-17-2019 Office Visit 07/17/2019 Office Visit Cardiology Mallorie Ambrosio, FRANCHESCA - GR[employer] JACK WORKER [address] [place] [address] [phone] [facility] Start: 2017 Colon cancer screen colonoscopy Colon cancer screen colonoscopy [place], [place] Start: 2017 Pneumococcal Vaccine: 50+ Years (1 of 1 - PCV) Pneumococcal Vaccine: 50+ Years (1 of 1 - PCV) [facility] Start: 2017 Shingles Vaccine (1 of 2) Shingles Vaccine (1 of 2) [place], [place] Start: 2017 Zoster Vaccines (1 of 2) Zoster Vaccines (1 of 2) [facility] Start: 10-10-2013 DTaP/Tdap/Td Vaccines (1 - Tdap) DTaP/Tdap/Td Vaccines (1 - Tdap) [facility] Start: 1986 DTaP/Tdap/Td vaccine (1 - Tdap) DTaP/Tdap/Td vaccine (1 - Tdap) [place], [place] Start: 1986 DTaP/Tdap/Td Vaccines (1 - Tdap) DTaP/Tdap/Td Vaccines (1 - Tdap) [facility] Start: 1986 Hepatitis B Vaccines (1 of 3 - 19+ 3-dose series) Hepatitis B Vaccines (1 of 3 - 19+ 3-dose series) [facility] Start: 1985 Diabetes mellitus screening Diabetes Screening [facility] Start: 1985 Hepatitis C screening Hepatitis C Screening [facility] Start: 1982 HIV screen HIV screen [place], [place] Start: 1979 Depression Screening Depression Screening [facility] Start: 1968 MMR Vaccines (1 of 1 - Standard series) MMR Vaccines (1 of 1 - Standard series) [facility] Start: 1965 Hepatitis B Vaccines (1 of 3 - 3-dose series) Hepatitis B Vaccines (1 of 3 - 3-dose series) [facility] Start: 1965 HIV screening HIV Screening [facility] Start: 1967 Lipid panel Lipid Panel [facility] Start: 1967 Screening for malignant neoplasm of colon [facility] End: 07-01-2019 Basic metabolic 2000 panel Basic Metabolic Panel Lab Routine Daily for 4 Occurrences starting 06/28/2019 until 07/01/2019, 3 completed [place], [place] Comment on above: Daily for 4 Occurrences starting 019 until 07/01/2019, 3 completed End: 11-03-2024 Cardiac holter monitor (8- 15 days) [employer] Work Phone: Comment on above: Once for 1 Occurrences starting 11/03/20 until 11/03/2024 End: 06-28-2019 Cardioversion Defibrillation Cardioversion Defibrillation Cardiac Cath Routine One Time for 1 Occurrences starting 06/28/2019 until 06/28/2019 [facility] Comment on above: One Time for 1 Occurrences starting 05/2019 until 06/28/2019 End: 06-28-2019 Diagnostic Cardiac [employer] Supervisor Procedure Diagnostic Cardiac [employer] Supervisor Procedure Cardiac Cath Routine One Time for 1 Occurrences starting 06/28/2019 until 06/28/2019 [facility] Comment on above: One Time for 1 Occurrences starting 05/2019 until 06/28/2019 ECG 12 lead ECG 12 lead CV E CG Routine 12/02/2023 7:41 AM [employer] Work Phone: ECG 12 lead ECG 12 lead CV E CG Routine 12/02/2023 11:20 AM [employer] ECG 12 lead ECG 12 lead CV E CG Routine Typical atrial flutter (HCC) 03/03/2024 3:21 PM EDT [facility] ECG 12 lead - CLINIC PERFORMED ECG 12 lead - CLINIC PERFORMED CV ECG Routine Paroxysmal atrial fibrillation (CMS/HCC) (HCC) 06/28/2023 8:20 AM [employer] Work Phone: ECG 12 lead - CLINIC PERFORMED ECG 12 lead - CLINIC PERFORMED CV ECG Routine Paroxysmal atrial fibrillation (HCC) 10/22/2023 1:06 PM EST [facility] ECG 12 lead - CLINIC PERFORMED ECG 12 lead - CLINIC PERFORMED CV ECG Routine Paroxysmal atrial fibrillation (HCC) 12/20/2023 12:54 PM [employer] Work Phone: ECG 12 lead - CLINIC PERFORMED ECG 12 lead - CLINIC PERFORMED CV ECG Routine Paroxysmal atrial fibrillation (HCC) 12/08/2024 2:49 PM [employer] Work Phone: EKG 12 Lead [employer] [place] Comment on above: Every 12hr until discontinued starting 0 06/27/2019, 6 completed End: 06-29-2019 ELECTROPHYSIOLOGY DEVICE ELECTROPHYSIOLOGY DEVICE Echocardiography Routine One Time for 1 Occurrences starting 06/29/2019 until 06/29/2019 [facility], [place] Comment on above: One Time for 1 Occurrences starting 06/2019 until 06/29/2019 Ephys evl trnsptl tx atrial fib isolat pulm vein ABLATION A-FIB PAROXYSMAL W COMPLETE EP STUDY Paroxysmal atrial fibrillation (HCC) Typical atrial flutter (HCC) [facility] Initiate Oxygen Ther apy Protocol Initiate Oxygen Therapy Protocol Respiratory Care Routine Daily until discontinued starting 06/30/2019 [facility], [place] Comment on above: Daily until discontinued starting 2018 End: 07-01-2019 Magnesium [Mass/Vol] Magnesium Lab Routine Daily for 4 Occurrences starting 06/28/2019 until 07/01/2019, 3 completed [facility], [place] Comment on above: Daily for 4 Occurrences starting 019 until 07/01/2019, 3 completed Immunizations Immunization Date Immunization Notes Care Provider Edgar sanford 08-17-2020 influenza virus vaccine, unspecified formulation Jeanette Oniel [employer] FACULTY MEMBER - GR[employer] JACK WORKER Work Phone: [facility] 09-12-2016 influenza, injectabl e, quadrivalent, contains preservative Jeanette Oniel [employer] FACULTY MEMBER - [employer] WORKER Work Phone: [facility] 08-24-2015 influenza, injectabl e, quadrivalent, contains preservative Jeanette Oniel [employer]OLOGY FACULTY MEMBER - GR[employer] JACK WORKER Work Phone: [facility] 09-20-2014 influenza, seasonal, injectable Jeanette Oniel [employer]Y FACULTY MEMBER - GR[employer] JACK WORKER Work Phone: [facility] 10-09-2013 tetanus and diphther ia toxoids, adsorbed, preservative free, for adult use (2 Lf of tetanus toxoid and 2 Lf of diphtheria toxoid) [facility] 09-18-2013 Influenza virus vaccine [facility] 09-16-2013 influenza virus vaccine, unspecified formulation Jeanette Oniel [employer]ROLE[employer] GEOLOGY FACULTY MEMBER - GR[employer] JACK WORKER Work Phone: [facility] 12-08-2012 influenza virus vaccine, unspecified formulation Jeanette Onile [employer]Y FACULTY MEMBER - GR[employer] JACK WORKER Work Phone: [facility] 09-12-2011 influenza virus vaccine, unspecified formulation Jeanette Dixon [employer]Y FACULTY MEMBER - [employer] WORKER Work Phone: [facility] 09-05-2009 influenza virus vaccine, unspecified formulation Jeanette Dixon [employer]Y FACULTY MEMBER - [employer] J[employer] WORKER Work Phone: [facility] 09-28-2008 influenza virus vaccine, unspecified formulation Jeanette Dixon [employer]Y FACULTY MEMBER - [employer] WORKER Work Phone: [facility] 09-21-2007 influenza virus vaccine, unspecified formulation Jeanette Dixon [employer]Y FACULTY MEMBER - GRAB JACK WORKER Work Phone: [facility] Payers Date Payer Category Payer Self-pay [id number] [id number] 2022 Unknown [id number] 2021 Unknown [id number] 2018 Unknown [employer] [address] xxxxxxxxxxxx 2018-Present [phone] [address] [place] [address] xxxxxxxxxxxx [id number] 2016 Unknown [id number] Private Health Insurance [id number] Unknown [id number] Unknown [id number] Unknown [id number] Unknown [id number] Unknown [id number] Unknown [id number] Unknown [id number] Social History Date Type Detail Facility Start: 05-02-2019 End: 02-17-2024 Tobacco smoking status NMIS Never smoker [facility] [place] Start: 05-02-2019 End: 05-21-2025 Alcohol intake Not Currently [facility] Start: 1965 Sex Assigned At Not on file [place] Start: 12-30-2021 End: 02-17-2023 Tobacco smoking status RUST Unknown if ever smoked [facility] Start: 03-06-2019 Chew [facility] Start: 1965 Sex Assigned At Male [facility] Start: 06-28-2023 Tobacco smoking stat [facility] Ex-smoker [facility] History of tobacco use Current smoker [facility] Start: 04-13-2023 End: 05-21-2025 Alcohol intake Ex-drinker (finding) [facility] Start: 04-13-2023 End: 05-21-2025 History of Social function [facility] Start: 06-28-2023 Tobacco use and exposure User of smokeless tobacco [facility] History of tobacco use Snuff User [facility] Start: 10-25-2022 End: 06-28-2023 Exposure to SARS-CoV-2 (event) Not sure [facility] Start: 10-09-2013 None [facility] Start: 10-09-2013 Spouse/ Signif icant Other [facility] Within the last year , have you been afraid of your partner or ex-partner? No [facility] Physically Abused Not on file [facility] Start: 06-22-2022 Sex Male (finding) Renetta grossman Medical Equipment Procedure Code Equipment Code Equipment Origin al Text Equipment Identifier Dates Device Closure [employer] - [id number] Start: 12-02-2023 Device Closure [employer] - [id number] Start: 12-02-2023 Device Closure [employer] - [id number] Start: 12-02-2023 Clinical Notes 11-25-2022 to 06-11-2025 Telephone Encounter - Radha Stevens RN - 06/11/2025 2:02 PM EDTTelephone Encounter - Radha Stevens RN - 06/11/2025 2:02 PM EDTFernando Garcia MD - 05/21/2025 3:00 PM EDT Note Date & Type Note Facility 06-11-2025 Telephone encount er Note [facility] EKG-12/16 [facility] 06-11-2025 Miscellaneous Notes Formattin g of this note might be different from the original. [facility] EKG-12/16 documented in this encounter [facility] 05-21-2025 History of Presen t illness Narrative [...] ELECTROPHYSIOLOGY PROCEDURE N/A 12/02/2023 Performed by Ezra Waters MD at [facility] Cardiac Cath/EP Lab CARDIAC ELECTROPHYSIOLOGY PROCEDURE N/A 12/02/2023 Performed by Ezra Waters MD at [facility] Cardiac Cath/EP Lab CARDIAC PROCEDURE 03/06/2019 TRANSESOPHAGEAL [...] disease Mother's Brother documented in this encounter [facility] 04-13-2025 Evaluation note Diagnosis Onset Date Resolution Atrial fibrillation chronic March 232024 2:03pm Morbid (severe) obesity due to excess calories chronic April 13, 2025 2:03pm CARMEN (obstructive sleep apnea) chronic April 13, 2025 2 :03pm [facility] Work Phone: [phone]) 965-305903-20-2025 Telephone encounter Note* Telephone Encounter - Kayleigh Calhoun RN - 02/08/2025 3:42 PM EDT PC to patient's spouse and gave information, will follow up with PCP for other recommendations and will touch base with names of products if she finds any others [facility] [id number] Miscellaneous Notes* Telephone Encounter - Kayleigh Calhoun RN - 02/08/2025 3:42 PM EDT PC to patient's spouse and gave information, will follow up with PCP for other recommendations and will touch base with names of products if she finds any others * Telephone Encounter - Unique Harrington - 02/08/2025 3:23 PM EDT Pt's spouse lvm she received your vm but was able to get all of the information. Pt's spouse is asking for a call back * Telephone Encounter - Unique Harrington - 02/08/2025 3:02 PM EDT Pt spouse calling to check status of pt taking restful sleep supplement * Telephone Encounter - Unique Harrington - 02/02/2025 9:28 AM EDT Pt's spouse calling regarding restful sleep all natural sleep medication. Pt's spouse is asking if this will be ok for pt to take the medication documented in this encounterSCentervilleGnwzab89-90-3307 Telephone encounter Note* Telephone Encounter - Unique Harrington - 02/08/2025 3:23 PM EDT Pt's spouse lvm she received your vm but was able to get all of the information. Pt's spouse is asking for a call back [facility] [id number] Telephone encounter Note* Telephone Encounter - Unique Harrington - 02/08/2025 3:02 PM EDT Pt spouse calling to check status of pt taking restful sleep supplement [facility] [id number] Telephone encounter Note* Telephone Encounter - Unique Harrington - 02/02/2025 9:28 AM EDT Pt's spouse calling regarding restful sleep all natural sleep medication. Pt's spouse is asking if this will be ok for pt to take the medication [facility] [id number] Telephone encounter Note* Telephone Encounter - FRANCHESCA Worley CNP - 12/22/2024 3:48 PM EST Reviewed labs, will discuss at next visit [facility] [employer] Work Phone: [phone]) 200-849301-31-2025 Miscellaneous Notes* Telephone Encounter - FRANCHESCA Worley CNP - 12/22/2024 3:48 PM EST Reviewed labs, will discuss at next visit * Telephone Encounter - Roula Sanches MA - 12/21/2024 12:12 PM EST Images from the original note were not included. documented in this enc[id number] Telephone encounter Note* Telephone Encounter - Roula Sanches MA - 12/21/2024 12:12 PM EST Images from the original note were not included. [facility] [id number] History of Present illness Narrative* FRANCHESCA Portillo CNP - 12/08/2024 3:30 PM EST Images from the original note were not included. [facility] [place] [address] [facility] [address] Dept: [phone] Dept Visit type: Established : 1965 Reason [...] will call us if his burden increases andwe can discuss redo ablation. Orders: - ECG 12 lead - CLINIC PERFORMED 3. Typical atrial flutter (HCC) Assessment & Plan: S/p CTI ablation with no recurrence. Follow up in about 6 months (around 06/07/2025) for Dr. Waters. Alvin Fraga is a 59 y.o. male with a history of pAF/AFl with recurrence despite Tikosyn, s/p PVI + CTI ablation 11/2023, CARMEN on CPAP, who presents today for overdue 6 month follow up. Since his last visit, he underwent a stress test which showed no evidence of ischemia. He also worea monitor for episodes of palpitations which showed [...] (25 mg) by mouth 2 times daily. (Patienttaking differently: Take 25 mg by mouth 2 [...] ELECTROPHYSIOLOGY PROCEDURE N/A 12/02/2023 Performed by Ezra Waters MD at [facility] Cardiac Cath/EP Lab CARDIAC ELECTROPHYSIOLOGY PROCEDURE N/A 12/02/2023 Performed by Ezra Waters MD at [facility] Cardiac Cath/EP Lab CARDIAC PROCEDURE 03/06/2019 TRANSESOPHAGEAL [...] within my specialty: EKG in office: See [facility] Echo 10/2024: Study Impression: Probably normal stress echocardiogram within the limits of this study. No clear echocardiographic evidence of ischemia. poor quality images post stress. Post-stress Echo: The post-stress echo showed no new wall motion abnormalities within the limits ofthis study. Left Ventricle: Left ventricle is dilated. [...] test. FRANCHESCA Beltran CNP documented in this [facility]01-17-2025 Evaluation + Plan note* Assessment & Plan Note - FRANCHESCA Portillo CNP - 12/08/2024 3:17 PM ESTAssociated Problem(s): Obstructive sleep apnea Continue CPAP nightly. [facility] [id number] Evaluation + Plan note* Assessment & Plan Note - FRANCHESCA Portillo CNP - 12/08/2024 3:17 PM ESTAssociated Problem(s): Typical atrial flutter (HCC) S/p CTI ablation with no recurrence. [facility] [id number] Evaluation + Plan note* Assessment & Plan Note - FRANCHESCA Portillo CNP - 12/08/2024 3:17 PM ESTAssociated Problem(s): Paroxysmal atrial fibrillation (HCC) Last monitor [...] will call us if his burden increases andwe can discuss redo ablation. [facility] [id number] Miscellaneous Notes* Assessment & Plan Note - FRANCHESCA Portillo CNP - 12/08/2024 3:17 PM ESTAssociated Problem(s): Obstructive sleep apnea Continue CPAP nightly. * Assessment & Plan Note - FRANCHESCA Portillo CNP - 12/08/2024 3:17 PM ESTAssociated Problem(s): Typical atrial flutter (HCC) S/p CTI ablation with no recurrence. * Assessment & Plan Note - FRANCHESCA Portillo CNP - 12/08/2024 3:17 PM ESTAssociated Problem(s): Paroxysmal atrial fibrillation (HCC) Last monitor [...] will call us if his burden increases andwe can discuss redo ablation. documented in this encounterSCentervilleBhwirl28-15-2530 Telephone encounter Note* Telephone Encounter - Marguerite Cote - 11/06/2024 10:16 AM EST Patient scheduled with 12-08-24. [facility] [id number] Miscellaneous Notes* Telephone Encounter - Marguerite Cote - 11/06/2024 10:16 AM EST Patient scheduled with 12-08-24. * Telephone Encounter - Leana Gonzalez RN - 11/06/2024 9:59 AM EST LVM informing patient of test results, marguerite please reach out and schedule follow up appointment. * Telephone Encounter - Leana Gonzalez RN - 11/06/2024 9:59 AM EST ----- Message from FRANCHESCA Portillo CNP sent at 11/06/2024 8:07 AM EST ----- Please let patient know stress test looked ok, not the best images but no clear evidence of ischemia. He is overdue for follow up, please schedule appt with me, on Tikosyn. documented in this encounterSCentervilleLptcaa04-48-2819 Telephone encounter Note* Telephone Encounter - Leana Gonzalez RN - 11/06/2024 9:59 AM EST LVM informing patient of test results, marguerite please reach out and schedule follow up appointment. [facility] HospitalOqrqji85-14-4691 Telephone encounter Note* Telephone Encounter - Leana Gonzalez RN - 11/06/2024 9:59 AM EST ----- Message from FRANCHESCA Portillo CNP sent at 11/06/2024 8:07 AM EST ----- Please let patient know stress test looked ok, not the best images but no clear evidence of ischemia. He is overdue for follow up, please schedule appt with me, on Tikosyn. [facility] [id number] Telephone encounter Note* Telephone Encounter - Marguerite Cote - 09/14/2024 10:38 AM EDT Please see new orders have been placed. [facility] HospitalKdvcnw17-11-0527 Miscellaneous Notes* Telephone Encounter - Marguerite Cote - 09/14/2024 10:38 AM EDT Please see new orders have been placed. * Telephone Encounter - FRANCHESCA Portillo CNP - 09/14/2024 10:13 AM EDT New orders placed. * Telephone Encounter - Marguerite Cote - 09/14/2024 9:32 AM EDT KM could you please place new orders for stress test and HM? The orders SM placed were put in wrongdepartment. ( [facility] Central scheduling). Thank you * Telephone Encounter - Tiesha Howard - 09/12/2024 9:58 AM EDT Will need new orders. * Telephone Encounter - Meliza Clancy - 09/12/2024 9:44 AM EDT Reason for call: Sallienikhil the patients called into schedule the patient for a stress echocardiogram and Holter monitor, but the orders say cancelled and wont let me schedule. Please place new orders. Thank you Contact documented in this encounterSCentervilleCardnn50-13-7466 Telephone encounter Note* Telephone Encounter - FRANCHESCA Portillo CNP - 09/14/2024 10:13 AM EDT New orders placed. [facility] [id number] Telephone encounter Note* Telephone Encounter - Marguerite Cote - 09/14/2024 9:32 AM EDT KM could you please place new orders for stress test and HM? The orders SM placed were put in wrongdepartment. ( [facility] Central scheduling). Thank you [facility] HospitalMyfjtf22-05-9047 Telephone encounter Note* Telephone Encounter - Tiesha Howard - 09/12/2024 9:58 AM EDT Will need new orders. [facility] HospitalJipklz35-88-4246 Telephone encounter Note* Telephone Encounter - Meliza Clancy - 09/12/2024 9:44 AM EDT Reason for call: Hello the patients called into schedule the patient for a stress echocardiogram and Holter monitor, but the orders say cancelled and wont let me schedule. Please place new orders. Thank you Contact [facility] HospitalPgpwlq74-39-5360 Telephone encounter Note* Telephone Encounter - Chio Puente MA - 06/27/2024 10:31 AM EDT Sent rx request to dr bernard [facility] HospitalLwvtty54-64-0969 Miscellaneous Notes* Telephone Encounter - Chio Puente MA - 06/27/2024 10:31 AM EDT Sent rx request to dr bernard documented in this encounterSCentervilleOzwymy81-22-6187 Telephone encounter Note* Telephone Encounter - Chio Puente MA - 06/09/2024 9:57 AM EDT Called the patients in regards to her , letting her know that I faxed the lab order to [facility] at fax #: [phone]. [facility] HospitalIjcsfp69-70-2281 Miscellaneous Notes* Telephone Encounter - Chio Puente MA - 06/09/2024 9:57 AM EDT Called the patients in regards to her , letting her know that I faxed the lab order to [facility] at fax #: [phone]. * Telephone Encounter - Chio Puente MA - 06/09/2024 9:54 AM EDT Faxed lab order to [facility] , fax #: [phone]. * Telephone Encounter - Trice Nino - 06/08/2024 3:59 PM EDT Name of caller: rena Contact phone number: [phone] Relationship to Patient: patient Provider: [facility] Practice: [facility] Chief Complaint/Reason for Call: patients is calling in needing the office to fax over an order to [facility] for the patient to get their blood work completed. phone number is [phone] they would like to be notified once that order has been placed. please advise and thankyou Best time of day caller can be reached: any Patient advised that office/PCP has 24-48 business hours to return their call: Yes documented in this [facility]07-19-2024 Telephone encounter Note* Telephone Encounter - Chio Puente MA - 06/09/2024 9:54 AM EDT Faxed lab order to [facility] , fax #: [phone]. [facility] HospitalGhnbnr61-15-6433 Telephone encounter Note* Telephone Encounter - Trice Nino - 06/08/2024 3:59 PM EDT Name of caller: rena Contact phone number: [phone] Relationship to Patient: patient Provider: [facility] Practice: [facility] Chief Complaint/Reason for Call: patients is calling in needing the office to fax over an order to [facility] for the patient to get their blood work completed. phone number is [phone] they would like to be notified once that order has been placed. please advise and thankyou Best time of day caller can be reached: any Patient advised that office/PCP has 24-48 business hours to return their call: Yes [facility] [id number] History of Present illness Narrative* Leann Bernard MD - 05/16/2024 4:20 PM EDT Images from the original note were not included. [facility] [address] [facility] [address] [facility] [address] Dept: [phone] Dept Loc: [phone] Visit type: Established Reason for Visit: Follow-up [...] is CURRY BANDA Referring is PCP Previous Teller Head: Dr. Bansal and Dr. [facility] Last office visit: [...] (25 mg) by mouth 2 times daily. (Patienttaking differently: Take 25 mg by mouth 2 [...] ELECTROPHYSIOLOGY PROCEDURE N/A 12/02/2023 Performed by Ezra Waters MD at [facility] Cardiac Cath/EP Lab CARDIAC ELECTROPHYSIOLOGY PROCEDURE N/A 12/02/2023 Performed by Ezra Waters MD at [facility] Cardiac Cath/EP Lab CARDIAC PROCEDURE 03/06/2019 TRANSESOPHAGEAL [...] date of this note. documented in this [facility]04-25-2024 Telephone encounter Note* Telephone Encounter - Lena Bentley RN - 03/16/2024 4:16 PM EDT OV 02/2024 MSP with EKG [address]Pehggb00-27-0243 Miscellaneous Notes* Telephone Encounter - eLna Bentley RN - 03/16/2024 4:16 PM EDT OV 02/2024 MSP with EKG documented in this [place] [address]-17-2024 Telephone encounter Note* Telephone Encounter - Marguerite Cote - 03/08/2024 9:08 AM EDT Patient's called in stating she needs to reschedule patient's stress test due to his work schedule. I provided her with central scheduling's phone number. [place] [id number] Miscellaneous Notes* Telephone Encounter - Marguerite Cote - 03/08/2024 9:08 AM EDT Patient's called in stating she needs to reschedule patient's stress test due to his work schedule. I provided her with central scheduling's phone number. documented in this [place] [address]-12-2024 History of Present illness Narrative* Ezra Waters MD - 03/03/2024 3:15 PM EDT [facility] Cardiology [facility] [address] [place] [address] Dept: [phone] Dept Loc: [phone] Visit type: Established : 1965 Chief Complaint: [...] ELECTROPHYSIOLOGY PROCEDURE N/A 12/02/2023 [facility] by [facility] [facility] Cardiac Cath/EP Lab CARDIAC ELECTROPHYSIOLOGY PROCEDURE N/A 12/02/2023 Performed by Ezra Waters MD at [facility] Cardiac Cath/EP Lab CARDIAC PROCEDURE 03/06/2019 TRANSESOPHAGEAL [...] Units by mouth in the morning., Disp: ,Rfl: cholecalciferol (D3-5) 5,000 Units tablet, Take by [...] to see what his palpitations/heart racing symptoms are.I will also order a stress test to see if ischemia may be causing his chest pressure. Further steps after we see the result of the testing. Will continue dofetilide for now. documented in this [facility]01-29-2024 Evaluation + Plan note* Assessment & Plan Note - Jeanette Dixon APRN - [facility] - 12/20/2023 1:27 PM ESTAssociated Problem(s): Typical atrial flutter (HCC) S/p successful CTI ablation with no documented recurrence. [facility] [id number] Miscellaneous Notes* Assessment & Plan Note - FRANCHESCA Portillo CNP - 12/20/2023 1:27 PM ESTAssociated Problem(s): Typical atrial flutter (HCC) S/p successful CTI ablation with no documented recurrence. * Assessment & Plan Note - FRANCHESCA Portillo CNP - 12/20/2023 1:26 PM ESTAssociated Problem(s): Paroxysmal atrial fibrillation (HCC) S/p PVI 1 month ago. He is maintaining sinus rhythm. Will continue Tikosyn for the remainder of theblanking period. His QTc is stable. He will stop Eliquis on 12/03/23, which is 1 month post-PVI given chadsvasc score of zero. documented in this enc[id number] Evaluation + Plan note* Assessment & Plan Note - FRANCHESCA Portillo CNP - 12/20/2023 1:26 PM ESTAssociated Problem(s): Paroxysmal atrial fibrillation (HCC) S/p PVI 1 month ago. He is maintaining sinus rhythm. Will continue Tikosyn for the remainder of theblanking period. His QTc is stable. He will stop Eliquis on 12/03/23, which is 1 month post-PVI given chadsvasc score of zero. [facility] HospitalOreykv85-14-3263 History of Present illness Narrative* FRANCHESCA Portillo CNP - 12/20/2023 1:00 PM EST Images from the original note were not included. [facility] CARDIOLOGY [address] [address] Dept: [phone] Dept Visit type: Established : 1965 Reason for Visit: 1 Month Follow Up Assessment and Plan 1. Paroxysmal atrial fibrillation (HCC) Assessment & Plan: S/p PVI 1 month ago. He is maintaining sinus rhythm. Will continue Tikosyn for the remainder of theblanking period. His QTc is stable. He will stop Eliquis on 12/03/23, which is 1 month post-PVI given chadsvasc score of zero. Orders: - ECG 12 lead - CLINIC PERFORMED 2. Typical atrial flutter (HCC) Assessment & Plan: S/p successful CTI ablation with no documented recurrence. Follow up in about 2 months (around 02/18/2024) for Dr. Waters. Alvin Fraga is a 58 y.o. male with a history of pAF/AFl with recurrence despite Tikosyn, now s/p PVI + CTI ablation with Dr. Waters 11/2023. He presents today for 1 month [...] (25 mg) by mouth 2 times daily. (Patienttaking differently: Take 25 mg by mouth 2 [...] ELECTROPHYSIOLOGY PROCEDURE N/A 12/02/2023 Performed by Ezra Waters MD at [facility] Cardiac Cath/EP Lab CARDIAC ELECTROPHYSIOLOGY PROCEDURE N/A 12/02/2023 Performed by Ezra Waters MD at [facility] Cardiac Cath/EP Lab CARDIAC PROCEDURE 03/06/2019 TRANSESOPHAGEAL [...] HPI FRANCHESCA Portillo CNP documented in this encounter[id number] Telephone encounter Note* Telephone Encounter - Radha Stevens RN - 12/13/2023 2:49 PM EST Called and spoke to patient to let him know last day of taking eliquis would be 01/03/24 [facility] HospitalXpqpqx97-24-2069 Miscellaneous Notes* Telephone Encounter - Radha Stevens RN - 12/13/2023 2:49 PM EST Called and spoke to patient to let him know last day of taking eliquis would be 01/03/24 * Telephone Encounter - Marguerite Cote - 12/10/2023 3:06 PM EST Patient called back, she said her question was how long her is to continue taking the medication? Please call her back at [phone] * Addendum Note - FRANCHESCA Portillo CNP - 12/10/2023 2:33 PM ESTAddended by: JEANETTE DIXON on: 12/10/2023 02:33 PM Modules accepted: Orders * Telephone Encounter - FRANCHESCA Portillo CNP - 12/10/2023 2:30 PM EST Since we have not heard back and it is the weekend, I sent in a 30-day supply of Eliquis to his [facility] so he does not run out. I will send him a [employer] message informing him as we have not been able to reach him. * Telephone Encounter - Radha Stevens RN - 12/10/2023 12:22 PM EST Also called and LVM on Vm as well * Telephone Encounter - Marguerite Cote - 12/10/2023 10:01 AM EST Called and left VM to confirm how patient was out of eliquis. Will inform team when I receive a call back with information. * Telephone Encounter - FRANCHESCA Portillo CNP - 12/10/2023 9:[address] Waters sent a script for the Eliquis to [facility] on 10/22/23 with refills. He initially sent a 90-day supply so can you see how they are out? He only needs to remain on it for 1 month post-ablation. * Telephone Encounter - Radha Stevens RN - 12/10/2023 9:27 AM EST EASTON-11/13 KM NOV CBC-11/13 CMP-11/13 CR-0.86 * Telephone Encounter - Tiesha Howard - 12/10/2023 9:04 AM EST Pt's spouse calling in today asking about his Eliquis. Pt running low and they will be out of town.Asking if he will remain on the Elqiuis. If so will need new Rx sent to [facility] documented in this encounterSCentervilleVvfbbj45-03-1807 Telephone encounter Note* Telephone Encounter - Marguerite Cote - 12/10/2023 3:06 PM EST Patient called back, she said her question was how long her is to continue taking the medication? Please call her back at [phone] [facility] HospitalKektze60-85-0877 Miscellaneous Notes* Telephone Encounter - Marguerite Cote - 12/10/2023 3:06 PM EST Patient called back, she said her question was how long her is to continue taking the medication? Please call her back at [phone] * Addendum Note - FRANCHESCA Portillo CNP - 12/10/2023 2:33 PM ESTAddended by: JEANETTE DIXON on: 12/10/2023 02:33 PM Modules accepted: Orders * Telephone Encounter - FRANCHESCA Portillo CNP - 12/10/2023 2:30 PM EST Since we have not heard back and it is the weekend, I sent in a 30-day supply of Eliquis to his [facility] so he does not run out. I will send him a [employer] message informing him as we have not been able to reach him. * Telephone Encounter - Radha Stevens RN - 12/10/2023 12:22 PM EST Also called and LVM on Vm as well * Telephone Encounter - Marguerite Cote - 12/10/2023 10:01 AM EST Called and left VM to confirm how patient was out of eliquis. Will inform team when I receive a call back with information. * Telephone Encounter - FRANCHESCA Portillo CNP - 12/10/2023 9:[address] Waters sent a script for the Eliquis to [facility] on 10/22/23 with refills. He initially sent a 90-day supply so can you see how they are out? He only needs to remain on it for 1 month post-ablation. * Telephone Encounter - Radha Stevens RN - 12/10/2023 9:27 AM EST EASTON-11/13 KM NOV CBC-11/13 CMP-11/13 CR-0.86 * Telephone Encounter - Tiesha Roblero March - 12/10/2023 9:04 AM EST Pt's spouse calling in today asking about his Eliquis. Pt running low and they will be out of town.Asking if he will remain on the Elqiuis. If so will need new Rx sent to [facility] documented in this [facility]01-19-2024 Note* Addendum Note - FRANCHECSA Portillo CNP - 12/10/2023 2:33 PM ESTAddended by: JEANETTE DIXON on: 12/10/2023 02:33 PM Modules accepted: Orders [id number] Note* Addendum Note - FRANCHESCA Portillo CNP - 12/10/2023 2:33 PM ESTAddended by: JEANETTE DIXON on: 12/10/2023 02:33 PM Modules accepted: Orders [id number] Note* Addendum Note - FRANCHESCA Portillo CNP - 12/10/2023 2:33 PM ESTAddended by: JEANETTE DIXON on: 12/10/2023 02:33 PM Modules accepted: Orders [address]Hylmit81-17-2158 Telephone encounter Note* Telephone Encounter - FRANCHESCA Portillo CNP - 12/10/2023 2:30 PM EST Since we have not heard back and it is the weekend, I sent in a 30-day supply of Eliquis to his [facility] so he does not run out. I will send him a [employer] message informing him as we have not been able to reach him. [facility] [id number] Telephone encounter Note* Telephone Encounter - Radha Stevens RN - 12/10/2023 12:22 PM EST Also called and LVM on Vm as well [facility] [id number] Telephone encounter Note* Telephone Encounter - Marguerite Cote - 12/10/2023 10:01 AM EST Called and left VM to confirm how patient was out of eliquis. Will inform team when I receive a call back with information. [facility] [id number] Telephone encounter Note* Telephone Encounter - FRANCHESCA Portillo CNP - 12/10/2023 9:[address] Waters sent a script for the Eliquis to [facility] on 10/22/23 with refills. He initially sent a 90-day supply so can you see how they are out? He only needs to remain on it for 1 month post-ablation. [facility] [id number] Telephone encounter Note* Telephone Encounter - Radha Stevens RN - 12/10/2023 9:27 AM EST EASTON-11/13 KM NOV-12/15 CBC-11/13 CMP-11/13 CR-0.86 [facility] HospitalMiprfk92-94-0394 Telephone encounter Note* Telephone Encounter - Tiesha Howard - 12/10/2023 9:04 AM EST Pt's spouse calling in today asking about his Eliquis. Pt running low and they will be out of town.Asking if he will remain on the Elqiuis. If so will need new Rx sent to [facility] HospitalMuuyyb65-99-2616 Nurse Note* Gaviota Elizabeth RN - 12/02/2023 2:05 PM EST Pt up went to restroom, walked hallway 400ft. Steady no drainage noted, Pt tolerated well. Changinginto clothes to head home [facility] HospitalZwirrm45-72-2020 Nurse Note* Gaviota Elizabeth RN - 12/02/2023 2:05 PM EST Pt up went to restroom, walked hallway 400ft. Steady no drainage noted, Pt tolerated well. Changinginto clothes to head home * Gaviota Elizabeth RN - 12/02/2023 1:35 PM EST Pt sat at side of bed. Tolerated well. Sitting up to eat lunch. documented in this encounterSCentervilleEmgjet42-43-5677 Nurse Note* Gaviota Elizabeth RN - 12/02/2023 1:35 PM EST Pt sat at side of bed. Tolerated well. Sitting up to eat lunch. [facility] HospitalFfworl23-76-5334 History of Present illness Narrative* FRANCHESCA Portillo CNP - 12/02/2023 12:35 PM EST Patient seen in prep and recovery post-PVI. [...] scheduled with me before he goes to [place] in December. documented in this [facility]01-11-2024 Miscellaneous Notes* Perioperative Nursing Note - Lauren Contreras RN - 12/02/2023 12:06 PM EST REPORT GIVEN TO TOMAS, PREP AND RECOVERY UPDATE GIVEN TO PATIENTS RENA PITTS * Perioperative Nursing Note - Lauren Contreras RN - 12/02/2023 11:18 AM EST TOUR CONDUCTOR AT BEDSIDE * Perioperative Nursing Note - Lauren Contreras RN - 12/02/2023 11:18 AM EST Patient family/visitor updated by RN at this time. documented in this [facility]01-11-2024 Note* Perioperative Nursing Note - Lauren Contreras RN - 12/02/2023 12:06 PM EST REPORT GIVEN TO TOMAS, PREP AND RECOVERY UPDATE GIVEN TO PATIENTS RENA PITTS [facility] HospitalUrfuxf52-85-4027 Note* Perioperative Nursing Note - Lauren Contreras RN - 12/02/2023 12:06 PM EST REPORT GIVEN TO TOMAS, PREP AND RECOVERY UPDATE GIVEN TO PATIENTS RENA PITTS [place] [id number] Note* Perioperative Nursing Note - Lauren Contreras RN - 12/02/2023 11:18 AM EST TOUR CONDUCTOR AT BEDSIDE [address]Rsbezx63-83-4136 Note* Perioperative Nursing Note - Lauren Contreras RN - 12/02/2023 11:18 AM EST TOUR CONDUCTOR AT BEDSIDE [place] [id number] Note* Perioperative Nursing Note - Lauren Contreras RN - 12/02/2023 11:18 AM EST Patient family/visitor updated by RN at this time. [place] [id number] Note* Perioperative Nursing Note - Lauren Contreras RN - 12/02/2023 11:18 AM EST Patient family/visitor updated by RN at this time. [id number] Hospital Discharge instructions* Discharge Instructions* FRANCHESCA Portillo CNP - 12/02/2023 7:50 AM EST Post Pulmonary [...] please call the office. If it becomes severeplease seek emergency care. No driving for the next 3 days. Do not lift anything over 10 pounds for the next 5 days. You may resume your usual exercise routineafter 5 days. Slight swelling or bruising is [...] prescribed by your doctor documented in this [facility]01-08-2024 Telephone encounter Note* Telephone Encounter - Radha Stevens RN - 11/29/2023 4:36 PM EST [facility] HospitalPnrvxf02-65-1729 Miscellaneous Notes* Telephone Encounter - Radha Stevens RN - 11/29/2023 4:36 PM EST [facility] documented in this [facility]12-29-2023 History and physical note* FRANCHESCA Portillo CNP - 11/19/2023 2:42 PM EST [facility] Telehealth Cardiology Note DATE of SERVICE: 11/19/23 TIME of SERVICE: 2:39 PM Chief Complaint: Chief Complaint Patient presents with Follow-up History of Present Illness: Jorgito Fraga is a 58 y.o. male with a history of pAF/AFl who is having recurrent atrial fibrillation despite Tikosyn. He is scheduled for PVI with Dr. Waters 12/02/23. He was started on Eliquis andis doing well without bleeding issues. He notes [...] Units by mouth in the morning., Disp: ,Rfl: apixaban (Eliquis) 5 MG tablet, Take 1 [...] for PVI + CTI ablation with Dr. Waters 12/02/23. Last dose of Eliquis 11/30/23 in the evening. This was reiterated to him andhis over the phone. Pre- procedure lab work received from [facility] and unremarkable. All questions answered. Patient was seen today via Telehealth by agreement and consent. I used the following Telehealth technology: Audio capability only. Total length of call 12 minutes. The patient was offered and advisedvideo for a more comprehensive evaluation, but the patient declined or was unable to use video. Patient location: Patient Location: Home. This patient encounter is appropriate and reasonable underthe circumstances: H&P update . The patient has [...] stated that they are currently in the [facility]. If the patient is a minor, permission has been obtained by the parent or guardian for the patient to receive medical care at this visit. H+ P copied to chart from Jeanette Dixon APRN's progress note dated 11/19/[address] Waters. I have examined the patient on admission and confirm that the necessity for the procedure is still present. The patient's condition has not changed since the History & Physical was originally completed. Ezra Waters MD [facility] HospitalFndyyl85-56-1794 History and physical note* Jeanette Dixon APRN - [employer] - 11/19/2023 2:42 PM EST [facility] Telehealth Cardiology Note DATE of SERVICE: 11/19/23 TIME of SERVICE: 2:39 PM Chief Complaint: Chief Complaint Patient presents with Follow-up History of Present Illness: Jorgito Fraga is a 58 y.o. male with a history of pAF/AFl who is having recurrent atrial fibrillation despite Tikosyn. He is scheduled for PVI with Dr. Waters 12/02/23. He was started on Eliquis andis doing well without bleeding issues. He notes [...] Units by mouth in the morning., Disp: ,Rfl: apixaban (Eliquis) 5 MG tablet, Take 1 [...] for PVI + CTI ablation with Dr. Waters 12/02/23. Last dose of Eliquis 11/30/23 in the evening. This was reiterated to him andhis over the phone. Pre- procedure lab work received from [facility] and unremarkable. All questions answered. Patient was seen today via Telehealth by agreement and consent. I used the following Telehealth technology: Audio capability only. Total length of call 12 minutes. The patient was offered and advisedvideo for a more comprehensive evaluation, but the patient declined or was unable to use video. Patient location: Patient Location: Home. This patient encounter is appropriate and reasonable underthe circumstances: H&P update . The patient has [...] stated that they are currently in the [facility]. If the patient is a minor, permission has been obtained by the parent or guardian for the patient to receive medical care at this visit. H+ P copied to chart from Jeanette Dixon APRN's progress note dated 11/19/[address] Waters. I have examined the patient on admission and confirm that the necessity for the procedure is still present. The patient's condition has not changed since the History & Physical was originally completed. Ezra Waters MD documented in this [facility]12-29-2023 History of Present illness Narrative* Jeanette Dixon APRN - [employer] - 11/19/2023 2:30 PM EST [facility] Telehealth Cardiology Note DATE of SERVICE: 11/19/23 TIME of SERVICE: 2:39 PM Chief Complaint: Chief Complaint Patient presents with Follow-up History of Present Illness: Jorgito Fraga is a 58 y.o. male with a history of pAF/AFl who is having recurrent atrial fibrillation despite Tikosyn. He is scheduled for PVI with Dr. Waters 12/02/23. He was started on Eliquis andis doing well without bleeding issues. He notes [...] Units by mouth in the morning., Disp: ,Rfl: apixaban (Eliquis) 5 MG tablet, Take 1 [...] for PVI + CTI ablation with Dr. Waters 12/02/23. Last dose of Eliquis 11/30/23 in the evening. This was reiterated to him andhis over the phone. Pre- procedure lab work received from [facility] and unremarkable. All questions answered. Patient was seen today via Telehealth by agreement and consent. I used the following Telehealth technology: Audio capability only. Total length of call 12 minutes. The patient was offered and advisedvideo for a more comprehensive evaluation, but the patient declined or was unable to use video. Patient location: Patient Location: Home. This patient encounter is appropriate and reasonable underthe circumstances: H&P update . The patient has [...] stated that they are currently in the [facility]. If the patient is a minor, permission has been obtained by the parent or guardian for the patient to receive medical care at this visit. documented in this [facility]12-07-2023 History of Present illness Narrative* Leann Bernard MD - 10/28/2023 3:40 PM EST Images from the original note were not included. [facility] ENDOCRINOLOGY [address] [facility] [address] Dept: [phone] Dept Loc: [phone] Visit type: Established Reason for Visit: Follow-up and Hyperthyroidism Assessment and Plan 1. Graves disease - methIMAzole (Tapazole) 5 MG tablet; Take 0.5 tablets (2.5 mg) by mouth every morning., Starting Yvette 10/28/2023, Until Wed10/27/2024, Normal - TSH - T4, free - [...] is CURRY BANDA Referring is PCP Previous [facility]: Dr. Bansal and Dr[facility] Last office visit: [...] (25 mg) by mouth 2 times daily. (Patienttaking differently: Take 25 mg by mouth 2 [...] the signing physician directly. documented in this [facility]12-01-2023 History of Present illness Narrative* Meet Олег Waters MD - 10/22/2023 1:15 PM EST [facility] Cardiology [facility] CARDIOLOG[facility] [address] [place] [id number] Dept: [phone] Dept Visit type: Established : 1965 Chief [...] and exercise intolerance. He is not on ant icoagulation given his low [id number] score. Past Medical History: Past Medical History: [...] Units by mouth in the morning., Disp: ,Rfl: Aspirin 81 MG capsule, Take 81 mg [...] found for: BNP Cardiac Tests: Last Echo: 2019 SUMMARY: 1. Left ventricle: The cavity size [...] convenience. I will have him begin Eliquis atleast 3 weeks prior to the ablation and he knows he will need to stay on it for a brief period afterwards. documented in this [place] [address]-08-2023 Telephone encounter Note* Telephone Encounter - Leann Bernard MD - 09/29/2023 10:41 AM EST Normal thyroid functions , will discuss during clinic visit next month [address]Xmvuzw49-88-1439 Miscellaneous Notes* Telephone Encounter - Leann Bernard MD - 09/29/2023 10:41 AM EST Normal thyroid functions , will discuss during clinic visit next month * Telephone Encounter - Chio Puente MA - 09/29/2023 10:34 AM EST Thyroid lab results are scanned into the media for review. documented in this [place] [address]-08-2023 Telephone encounter Note* Telephone Encounter - Chio Puente MA - 09/29/2023 10:34 AM EST Thyroid lab results are scanned into the media for review. [address]Oovvqq25-59-7906 Telephone encounter Note* Telephone Encounter - Leann Bernard MD - 09/27/2023 1:57 PM EST Labs from May 2023 shows negative TSI and negative TSH receptor antibody & normal thyroid functions. Will discuss during clinic visit next month [address]Iedssq64-78-1332 Miscellaneous Notes* Telephone Encounter - Leann Bernard MD - 09/27/2023 1:57 PM EST Labs from May 2023 shows negative TSI and negative TSH receptor antibody & normal thyroid functions. Will discuss during clinic visit next month * Telephone Encounter - Chio Puente MA - 09/27/2023 10:17 AM EST Lab results are scanned into the media for your review. documented in this [place] [address]-06-2023 Telephone encounter Note* Telephone Encounter - Chio Puente MA - 09/27/2023 10:17 AM EST Lab results are scanned into the media for your review. [facility] HospitalRgnyzp52-58-4789 Telephone encounter Note* Telephone Encounter - Chelsi Shelton - 09/20/2023 4:28 PM EDT Spoke to pt's who stated [facility] needed lab orders faxed over. Faxed orders to [phone]. [place] [id number] Miscellaneous Notes* Telephone Encounter - Chelsi Shelton - 09/20/2023 4:28 PM EDT Spoke to pt's who stated [facility] needed lab orders faxed over. Faxed orders to [phone]. documented in this [facility]10-25-2023 Telephone encounter Note* Telephone Encounter - Lena Bentley RN - 09/15/2023 1:04 PM EDT OV 06/2023 JKS with EKG Spoke with no current BMP Please mail the lab slip to house ( order placed january) Also fax to [facility] that where hre goes thanks [facility] HospitalBcwtjv52-26-1494 Miscellaneous Notes* Telephone Encounter - Lena Bentley RN - 09/15/2023 1:04 PM EDT OV 06/2023 JKS with EKG Spoke with no current BMP Please mail the lab slip to house ( order placed january) Also fax to [facility] that where hre goes thanks * Telephone Encounter - Tiesha Roblero March - 09/15/2023 12:59 PM EDT Pt's calling in today for refill on dofetilide 500 mcg to [facility] in [place] requesting 90 daysupply with refills documented in this encounterSCentervilleKrdrbp04-00-9847 Telephone encounter Note* Telephone Encounter - Tiesha oRblero March - 09/15/2023 12:59 PM EDT Pt's calling in today for refill on dofetilide 500 mcg to [facility] in [place] requesting 90 daysupply with refills [facility] HospitalEoazdi80-79-0129 History of Present illness Narrative* Feliberto Banda MD - 06/28/2023 8:15 AM EDT [facility] Cardiology Note Chief Complaint: Chief Complaint Patient presents with Follow-up History of Present Illness: Jorgito Fraga is a 57 y.o. male presents for an urgent visit as he is an increase in atrial fibrillation. His parents have both this year and stress has been increased. In the last month or so he thinks perhaps 50% of the time he has been in atrial fibrillation. He is very much awareof his symptomatology and unfamiliar with the issues [...] Units by mouth in the morning., Disp: ,Rfl: Aspirin 81 MG capsule, Take 81 mg [...] by mouth in the morning., Disp: 90 tablet,Rfl: 1 metoprolol tartrate (Lopressor) 25 MG tablet, [...] primary care physician to discuss potential treatment forstress and anxiety. If things do not improve in 4 to 6 weeks he will call us back and likely schedule the ablation. documented in this [facility]08-01-2023 Telephone encounter Note* Telephone Encounter - Tiesha L. March - 06/22/2023 11:50 AM EDT PC to pt x2 call picks up and then disconnects. I will print and mail lab order with note to pt [id number] Telephone encounter Note* Telephone Encounter - Lena Bentley RN - 06/21/2023 7:43 AM EDT OV 01/3023 with EKG BMP 07/2022 pls call pt see if he ever got BMP done ordered in january? thanks [facility] [id number] Miscellaneous Notes* Telephone Encounter - Lena Bentley RN - 06/21/2023 7:43 AM EDT OV 01/3023 with EKG BMP 07/2022 pls call pt see if he ever got BMP done ordered in january? thanks documented in this [facility]05-01-2023 Miscellaneous Notes* Telephone Encounter - Tiesha Annika March - 06/22/2023 11:50 AM EDT PC to pt x2 call picks up and then disconnects. I will print and mail lab order with note to pt * Telephone Encounter - Lena Bentley RN - 06/21/2023 7:43 AM EDT OV 01/3023 with EKG BMP 07/2022 pls call pt see if he ever got BMP done ordered in january? thanks documented in this [facility]01-04-2023 Telephone encounter Note* Telephone Encounter - Kwameregina Barroso - 11/25/2022 1:10 PM EST Sent rx request to parking attendant [id number] Miscellaneous Notes* Telephone Encounter - Kwame Barroso - 11/25/2022 1:10 PM EST Sent rx request to parking attendant * Telephone Encounter - Leroy Perezs - 11/25/2022 11:50 AM EST Medication name: methamazole Medication dosage: 5 mg [...] up the medication: No documented in this enc[id number] Telephone encounter Note* Telephone Encounter - Leroy Rodriguez - 11/25/2022 11:50 AM EST Medication name: methamazole Medication dosage: 5 mg (Miligrams Monthly quantity needed: 90 How many day supply requestin days Medication route: oral (PO) Medication administration time(s): daily If taking medication PRN, reason for taking medication: N/A If this is a controlled substance do you receive this or any other controlled medication from any other doctor or facility: No Ordering provider: bansal Date of last office visit: 05/27/20 Date of next office visit: 03/01/23 Date of last refill: (see medication tab): 09/18/22 Updated/Validated preferred pharmacy: Yes Patient instructed to contact the pharmacy prior to picking up the medication: No [facility] noteNo assessment information availableWCleveland Clinic [facility] Work Phone: Evaluation note* Diagnosis Paroxysmal atrial fibrillation (CMS/HCC) (HCC) Atrial fibrillation documented in this encounter [facility] note* Diagnosis Paroxysmal atrial fibrillation (HCC)- Primary Atrial fibrillation Typical atrial flutter (HCC) documented in this encounter [facility] note* Diagnosis 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 [facility]* Diagnosis Typical atrial flutter (HCC)- Primary Paroxysmal atrial fibrillation (HCC) Atrial fibrillation Paroxysmal atrial fibrillation (HCC)- Primary Atrial fibrillation Typical atrial flutter (HCC) Paroxysmal atrial fibrillation (HCC) Atrial fibrillation Typical atrial flutter (HCC) documented in this encounter [facility] note* Diagnosis Typical atrial flutter (HCC)- Primary Paroxysmal atrial fibrillation (HCC) Atrial fibrillation Paroxysmal atrial fibrillation (HCC) Atrial fibrillation Typical atrial flutter (HCC) documented in this encounter [facility] note* Diagnosis Paroxysmal atrial fibrillation (HCC)- Primary Atrial fibrillation Typical atrial flutter (HCC) [facility] Diagnosis Paroxysmal atrial fibrillation (HCC)- Primary Atrial fibrillation Typical atrial flutter (HCC) documented in this encounter [facility] note* Diagnosis Graves disease- Primary 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 or storm [facility]* Diagnosis Graves disease- Primary 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 or storm documented in this encounter [facility] note* Diagnosis Paroxysmal atrial fibrillation (HCC)- Primary Atrial fibrillation Typical atrial flutter (HCC) Other chest pain- Primary [facility]* Diagnosis Paroxysmal atrial fibrillation (HCC)- Primary Atrial fibrillation Typical atrial flutter (HCC) Typical atrial flutter (HCC)- Primary Other chest pain [facility]* Diagnosis Paroxysmal atrial fibrillation (HCC)- Primary Atrial fibrillation Typical atrial flutter (HCC) Other chest pain documented in this encounter [facility] note* Diagnosis Paroxysmal atrial fibrillation (HCC)- Primary Atrial fibrillation Typical atrial flutter (HCC) Typical atrial flutter (HCC) [facility]* Diagnosis Paroxysmal atrial fibrillation (HCC)- Primary Atrial fibrillation Typical atrial flutter (HCC) Obstructive sleep apnea- Primary Obstructive sleep apnea (adult) (pediatric) Paroxysmal atrial fibrillation (HCC) Atrial fibrillation Typical atrial flutter (HCC) [facility]* Diagnosis Paroxysmal atrial fibrillation (HCC)- Primary Atrial fibrillation Typical atrial flutter (HCC) Obstructive sleep apnea- Primary Obstructive sleep apnea (adult) (pediatric) Paroxysmal atrial fibrillation (HCC) Atrial fibrillation Typical atrial flutter (HCC) Graves disease- Primary 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 or storm [facility]* Diagnosis Paroxysmal atrial fibrillation (HCC)- Primary Atrial fibrillation Typical atrial flutter (HCC) Obstructive sleep apnea- Primary Obstructive sleep apnea (adult) (pediatric) Paroxysmal atrial fibrillation (HCC) Atrial fibrillation Typical atrial flutter (HCC) 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 [facility] (narrative)No reason for referral information availableWCleveland Clinic [facility] Work Phone: Reason for visit Narrative* Imaging (Routine) - Closed Specialty Diagnoses / Procedures Referred By Contac t Referred To Contact Cardiology Diagnoses Other chest pain Procedures Stress echocardiogram (TTE) exercise with contrast, bubble, strain, and 3D PRN AK ECHO TTHRC R-T 2D W/WO M-MODE COMPLETE REST&ST AK ECHO TTHRC R-T 2D W/WO M-MODE REST&STRS CONT ECG AK DOPPLER ECHOCARD PULSE WAVE W/SPECTRAL DISPLAY AK DOP ECHOCARD COLOR FLOW VELOCITY MAPPING AK CV STRS TST XERS&/OR RX CONT ECG W/O I&R AK CV STRS TST XERS&/OR RX CONT ECG TRCG ONLY AK CV STRS TST XERS&/OR RX CONT ECG I&R ONLY Jeanette Dixon, FRANCHESCA - GRAB JACK WORKER [address] [place] [id number] Phone: tel: fax: Referral ID Status Reason Start Date Expiration Date Visits Re quested Visits Authorized [id number] Closed 09/14/2024 09/14/2025 1 1 [facility] Narrative* Cardiology (Routine) - Closed Specialty Diagnoses / Procedures Referred By Rowdy t Referred To Contact Cardiology Diagnoses Typical atrial flutter (HCC) Procedures Cardiac holter monitor (8- 15 days) AK EXTERNAL ECG REC>48HR<7D REVIEW & INTERPRETATION AK EXTERNAL ECG REC>48HR<7D RECORDING AK EXTERNAL ECG REC>7D<15D RECORDING AK EXTERNAL ECG REC>7D<15D REVIEW & INTERPRETATION Jeanette Dixon APRN - CNP [address] [place] [address] Phone: tel: fax: Referral ID Status Reason Start Date Expiration Date Visits Re quested Visits Authorized [id number] Closed 09/14/2024 09/09/2025 1 1 [facility] Discharge Instructions * Discharge Instr - Activity* [...] at most local grocery stores, pharmacies, and [employer]-stores. ? If you have any questions about your diet or nutrition, call the hospital and ask for the dietitian. * Attachments The following attachments cannot be sent through Care Everywhere. * dofetilide ([place]) documented in this encounter History of Present [...] 117/68 Pulse: [phone] Resp: 14 Temp: 97.6 F (36.4 C) 96.6 [...] here in the hospital. 5. Graves disease:dx 2007 follows with Endocrinology. TSH 4.[address] Bansal 01/30/19.Recommended follow up 1 yr. Electronicallysigned by FRANCHESCA Max CNP on 06/29/2019 at 9:56 AM * Liya Loera DTR - 06/29/2019 9:19 AM EDT Nutrition rescreen completed. Chart reviewed. Patient NPO for a procedure. Patient to be monitored and followed by the diet bench lay out technician. * Mitch Marvin MD - 06/27/2019 7:38 PM EDT Patient admitted for Tikosyn loading but no Tikosyn order in place. Discussed case with Chari Tom and Tikosyn is 500 mcg BID. Will start first dose tonight with standard ECG monitoring protocol. QTc on admission ECG okay. EP attending to assess in AM for any adjustment of dose. documented in this encounter Assessments Diagnosis Atrial fibrillation (HCC)- Primary Atrial fibrillation Obstructive sleep apnea Obstructive sleep apnea (adult) (pediatric) Diagnosis Non-ischemic cardiomyopathy (HCC) Other primary cardiomyopathies Advance Directives Documents on File Type Date Recorded Patient Usability Specialist Expl anation Advance Directives and Living Will Power of Gusset Edger Latest Code Status on File Code Status Date Activated Date Inactivated Comments Full Code 06/28/2019 2:26 PM Full Code 06/27/2019 6:32 PM 06/28/2019 2:26 PM Documents on File Type Date Recorded Patient Usability Specialist Expl anation Advance Directives and Living Will Power of Gusset Edger Latest Code Status on File Code Status Date Activated Date Inactivated Comments Full Code 06/28/2019 2:26 PM 06/30/2019 3:12 PM Full Code 06/27/2019 6:32 PM 06/28/2019 2:26 PM Advance Directive Response Recorded Date/ Time Advance Directives No April 05 9 10:42am Living Will No April 05, 2019 1 0:42am Power of Gusset Edger No April 05, 2019 10:42am Advance Directive Response Recorded Date/ Time Advance Directives No April 05 9 9:42am Living Will No April 05, 2019 9 :42am Power of Gusset Edger No April 05, 2019 9:42am Latest Code [...] Comments 12/02/2023 7:32 AM 12/02/2023 4:28 PM Advance Directive Response Recorded Date/ Time Advance Directives No April 05 9 10:42am Reason for Referral Status Reason Specialty Diagnoses / Procedures Re ferred By Contact Referred To Contact Closed Cardiology Diagnoses Non-ischemic cardiomyopathy (HCC) Procedures Echo 2D Doppler Color O'Mallorie Brunson APRN - GRAB JACK WORKER [address] [address] Specialty Diagnoses / Procedures Referred By Contac t Referred To Contact Ezra Waters MD [address] [place] [address] Referral ID Status Reason Start Date Expiration Date Visits Re quested Visits Authorized [id number] Closed 1 1 Specialty Diagnoses / Procedures Referred By Contac t Referred To Contact Jeanette Dixon APRN - GRAB JACK WORKER [address] [address] Referral ID Status Reason Start Date Expiration Date V isits Requested Visits Authorized [id number] Pending Review 1 1 Specialty Diagnoses / Procedures Referred By Contac t Referred To Contact Cardiology Diagnoses Typical atrial flutter (HCC) Procedures Stress echocardiogram (TTE) exercise with contrast, bubble, strain, and 3D PRN AK ECHO TTHRC R-T 2D W/WO M-MODE COMPLETE REST&ST AK ECHO TTHRC R-T 2D W/WO M-MODE REST&STRS CONT ECG AK DOPPLER ECHOCARD PULSE WAVE W/SPECTRAL DISPLAY AK DOP ECHOCARD COLOR FLOW VELOCITY MAPPING AK CV STRS TST XERS&/OR RX CONT ECG W/O I&R AK CV STRS TST XERS&/OR RX CONT ECG TRCG ONLY AK CV STRS TST XERS&/OR RX CONT ECG I&R ONLY Ezra Waters MD [address] [place] [address] Referral ID Status Reason Start Date Expiration Date V isits Requested Visits Authorized [id number] Authorized 03/03/2024 03/03/2025 1 1 Specialty Diagnoses / Procedures Referred By Contac t Referred To Contact Cardiology Diagnoses Typical atrial flutter (HCC) Procedures Cardiac holter monitor (8- 15 days) AK EXTERNAL ECG REC>48HR<7D REVIEW & INTERPRETATION AK EXTERNAL ECG REC>48HR<7D RECORDING AK EXTERNAL ECG REC>7D<15D RECORDING AK EXTERNAL ECG REC>7D<15D REVIEW & INTERPRETATION Ezra Waters MD [address] [place] [address] [facility] [address] [place] [address] Referral ID Status Reason Start Date Expiration Date V isits Requested Visits Authorized [id number] Authorized 03/03/2024 02/26/2025 1 1 Summary Purpose Family History Relationship Condition Age at Onset Recorded Date/T zaria father Diabetes mellitus Unknown Hypertension Unknown mother Diabetes mellitus Unknown grandmother Myocardial infarction Unknown Chief Complaint and Reason for Visit Chief Complaint UNSPECIFIED ATRIAL F IBRILLATION, HYPERLIPIDEMIA Chief Complaint Admit Date 1 Y FU April 13, 2025 2:03p m E05.00 May 26, 2025 10:58 am Reason for Visit Admit Date Atrial fibrillation April 13, 2025 2:03p m Morbid (severe) obesity due to excess ca lories April 13, 2025 2:03pm CARMEN (obstructive sleep apnea) April 13, 2025 2:03pm Additional Source Comments (unrecognized sect ion and content) No Status Records FoundNo Status Records FoundNo Status Records Found INFORMATION SOURCE (unrecogn ized section and content) DATE CREATED AUTHOR 06/26/2021 [facility] DATE CREATED AUTHOR AUTHOR'S ORGANIZ ATION 06/04/2025 [facility] DATE CREATED AUTHOR AUTHOR'S ORGANIZ ATION 06/13/2025 [facility] [facility] Goals (unrecognized section and [...] (HCC) [I48.3] Procedures Ablation a-fib paroxysmal Ezra Waters MD [address] [place] [address] [facility] Cardiac Cath/Ep Lab [address] [place] [phone] Referral ID Status Reason Start Date Expiration Date Visits Re quested Visits Authorized [id number] 1 1 Reason Onset Date Comments Med [...] Care Teams (unrecognized sec tion and content) Correction Worker Relationship Specialty Start Date End Date Luis M Gonzalez [address] [place] [address] PCP - General 01/30/19 Correction Worker Relationship Specialty Start Date End Date Luis M Gonzalez [address] [place] [address] PCP - General 01/30/19 Correction Worker Relationship Specialty Start Date End Date Luis M Gonzalez [address] [place] [address] PCP - General 01/30/19 Team Status: Active Member Role Status Dates Dr. Luis M Gonzalez MD Family Provider Active Dr. Luis M Gonzalez MD Primary Care Provider Active Team Status: Inactive Member Role Status Dates Dr. Luis M Gonzalez MD Primary Care Provider Active CHACORTA RIOS Attending Provider, Referring Provid er Active Correction Worker Relationship Specialty Start Date End Date Luis M Gonzalez [address] [place] [address] PCP - General 01/30/19 Correction Worker Relationship Specialty Start Date End Date Curry Banda [address] [place] [phone] PCP - General Family Medicine 10/22/23 Correction Worker Relationship Specialty Start Date End Date Curry Banda [address] [place] [address] PCP - General Family Medicine 10/22/23 Correction Worker Relationship Specialty Start Date End Date Curry Banda [address] [place] [address] PCP - General Family Medicine 10/22/23 Correction Worker Relationship Specialty Start Date End Date Curry Banda [address] [place] [address] PCP - General Family Medicine 10/22/23 Team [...] Dr. Curry Banda MD Attending Provider Active Correction Worker Relationship Specialty Start Date End Date Curry Banda [address] [place] [address] PCP - General Family Medicine 10/22/23 Team Status: Inactive Member Role Status Dates No Primary Care Physician Primary Care Provider Active CHACORTA RIOS Attending Provider Active Correction Worker Relationship Specialty Start Date End Date Curry Banda [address] [place] [address] PCP - General Family Medicine 10/22/23 Correction Worker Relationship Specialty Start Date End Date Curry Banda [address] [place] [address] PCP - General Family Medicine 10/22/23 Correction Worker Relationship Specialty Start Date End Date Curry Banda [address] [place] [address] PCP - General Family Medicine 10/22/23 Correction Worker Relationship Specialty Start Date End Date Curry Banda [address] [place] [address] PCP - General Family Medicine 10/22/23 Correction Worker Relationship Specialty Start Date End Date Curry Banda [address] [place] [address] PCP - General Family Medicine 10/22/23 Correction Worker Relationship Specialty Start Date End Date Curry Banda [address] [place] [address] PCP - General Family Medicine 10/22/23 Correction Worker Relationship Specialty Start Date End Date Curry Banda [address] [place] [address] PCP - General Family Medicine 10/22/23 Correction Worker Relationship Specialty Start Date End Date Curry Banda [address] [place] [address] PCP - General Family Medicine 10/22/23 Correction Worker Relationship Specialty Start Date End Date Curry Banda [address] [place] [address] PCP - General Family Medicine 10/22/23 Correction Worker Relationship Specialty Start Date End Date Curry Banda [address] [place] [address] PCP - General Family Medicine 10/22/23 Correction Worker Relationship Specialty Start Date End Date Luis M Gonzalez [address] [place] [phone] PCP - General 01/30/19 Correction Worker Relationship Specialty Start Date End Date Curry Banda [address] [place] [address] PCP - General Family Medicine 10/22/23 Correction Worker Relationship Specialty Start Date End Date Curry Banda [address] [place] [address] PCP - General Family Medicine 10/22/23 Correction Worker Relationship Specialty Start Date End Date Curry Banda [address] [place] [address] PCP - General Family Medicine 10/22/23 Correction Worker Relationship Specialty Start Date End Date Curry Banda [address] [place] [address] PCP - General Family Medicine 10/22/23 Team Status: Active Member Role/Relationship Status Dates Dr. Luis M Gonzalez MD Family Provider Active Dr. Curry Banda MD Primary Care Provider Active Team Status: Inactive Member Role/Relationship Status Dates Dr. Curry Banda MD Primary Care Provider Active Start: April 13, 2025 End: April 13, 2025 Dr. Curry Banda MD Referring Provider Active St art: April 13, 2025 End: April 13, 2025 Paulina Tinsley DRAWER LINER, DRAWER LINER-C Attending Provider Active Start: April 13, 2025 End: April 13, 2025 Team Status: Inactive Member Role/Relationship Status Dates Dr. Curry Banda MD Primary Care Provider Active Start: May 26, 2025 End: May 26, 2025 Dr. Fernando Garcia MD Attending Provider Active S tart: May 26, 2025 End: May 26, 2025 Dr. Fernando Garcia MD Referring Provider Active S tart: May 26, 2025 End: May 26, 2025 Correction Worker Relationship Specialty Start Date End Date Curry Banda [address] [facility] [address] [place] [phone] PCP - General Family Medicine 10/22/23 Scheduled [...] Automatically canceled at discontinue of medication order)1628 ([facility] Unhold - Provider: Automatic Discharge Provider) sodium [...] Auto Held - Provider: Automatic Transfer Provider)1628 (MAR Unhold - Provider: Automatic Discharge Provider) PRN [...] Transfer Provider - Reason: Patient not available)1628 ([facility] Unhold - Provider: Automatic Discharge Provider) bupivacaine PF (Marcaine) 0.5 % injection (CANCELED) As needed, Starting on Yvette 12/02/23 at 1045, Intraprocedure 1045 (Given - Provid er: Ezra Waters MD) lidocaine-EPINEPHrine (Xylocaine W/EPI) 1 %-1:[id number] injection (CANCELED) As needed, Starting on Yvette 12/02/23 at 1045, Intraprocedure 1045 (Given - Provid er: Ezra Waters MD) sodium chloride 0.9 % infusion (CANCELED) [...] less into rate field of order. 1058 ([facility] Hold - Pro vider: Automatic Transfer Provider - Reason: Patient not available)1628 ([facility] Unhold - Provider: Automatic Discharge Provider) sodium chloride 0.9% (NS) flush 5-40 mL 5-40 mL, IntraVENous, PRN, line care, After every IV line use, Starting on Yvette 12/02/23 at 1051, Recovery [...] or Central Line = 20 mL/lumen 1058 ([facility] Hold - Pro vider: Automatic Transfer Provider - Reason: Patient not available)1628 ([facility] Unhold - Provider: Automatic Discharge Provider) FOR [...] BE BASED ON THE PRIMARY CLINICAL RECORDS. [facility] [employer] [facility]. provides no warranty or guarantee of the accuracy or completeness of information in this document.
[2025-07-07 13:14] LABS: AST(SGOT) 19 U/L (<=37); Alanine Aminotransfer ALT/SGPT 23 U/L (<=46); Albumin, Serum 4.2 g/dL (3.5-5.0); Alkaline Phosphatase 57 U/L (40-129); Anion Gap 12 (5-15); BUN 16 mg/dL (4-19); BUN/Creat Ratio 22.5 RATIO (10-20); Calcium,Total 9.5 mg/dL (7.6-11.0); Carbon Dioxide 21.9 mmol/L (21.0-32.0); Chloride 105 mmol/L (98-108); Globulin 2.5 g/dL (2.2-4.2); Glucose 108 mg/dL (70-99); PSA,Total- Diagnostic 2.18 ng/mL (0.00-4.00); Potassium 4.3 mmol/L (3.3-5.1)
== END | disposition home or self-care (01) ==
LOC: LAB 10:44
PROVIDERS: PCP Family Medicine; Referring Provider Family Medicine; Visit Provider Family Medicine
DX: R35.89 Other polyuria (principal)
CPT/HCPCS: 36415; 80053; 83036; 84153

== ENCOUNTER → 2025-09-26 | Outpatient (CLI) | payer OTHER, SELFPAY ==
--- NOTE | 2025-09-26 16:51 | CT_ITS ---
PROCEDURE: CT/Extremity Upper without Contra
== END | disposition home or self-care (01) ==
LOC: CT 16:38
PROVIDERS: PCP Family Medicine; Referring Provider Student in an Organized Health Care Education/Training Program; Visit Provider Student in an Organized Health Care Education/Training Program
DX: M19.011 Primary osteoarthritis, right shoulder (principal)
CPT/HCPCS: 73200

== ENCOUNTER → 2025-10-03 | Outpatient (CLI) | payer OTHER, SELFPAY | END | disposition home or self-care (01) | LOC: MTLAB 16:19 | PROVIDERS: PCP Family Medicine; Referring Provider Family Medicine; Visit Provider Family Medicine | DX: E05.90 Thyrotoxicosis, unspecified without thyrotoxic crisis or storm (principal); C18.9 Malignant neoplasm of colon, unspecified; Z80.0 Family history of malignant neoplasm of digestive organs | CPT/HCPCS: 36415; 83036; 84439; 84443; 86301 ==

== ENCOUNTER 2025-10-22 09:55 | Observation (INO) | payer OTHER, SELFPAY ==
[2025-09-26 17:07] LABS: Hematocrit 42.1 % (40-54); Hemoglobin 14.6 g/dL (13.0-16.5); Immature Granulocytes Count 0.030 X10^3/uL (0.0-0.0); Mean Corp Hgb Conc 34.7 g/dL (32-36); Mean Corpuscular Volume 83.9 fL (80-94); Mean Platelet Vol. 9.0 fl (6.2-12.0); NRBC Flagged by Analyzer 0 % (0-5); Platelet Count 304 K/mm3 (150-450); RBC Distribution Width CV 13.2 % (11.6-14.6); RBC Distribution Width SD 40.6 fl (35.1-43.9); Red Blood Count 5.02 M/mm3 (4.6-6.2); White Blood Count 12.7 K/mm3 (4.4-11.0)
[2025-09-26 18:05] LABS: Albumin, Serum 4.2 g/dL (3.5-5.0); Anion Gap 13 (5-15); BUN 14 mg/dL (4-19); BUN/Creat Ratio 16.9 RATIO (10-20); Calcium,Total 9.2 mg/dL (7.6-11.0); Carbon Dioxide 22.3 mmol/L (21.0-32.0); Chloride 104 mmol/L (98-108); Glucose 77 mg/dL (70-99); Potassium 4.3 mmol/L (3.3-5.1)
[2025-09-26 18:09] LABS: Magnesium 2.0 mg/dL (1.5-2.2)
--- NOTE | 2025-09-27 13:42 | PAT.ANE_ITS ---
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 When Was Last Pacemaker Check QUESTION #4 FULL TEXT: You/Your Family Experience fever (hyperthermia) with Anesthesia Last Oral Intake Last Oral intake: Last Oral Intake NPO since Meds taken in AM with sips of water? 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 Female No 09/25/25 15:16 HX of Motion Sickness No 09/25/25 15:16 HX of N/V After Surgery No 09/25/25 15:16 Non-Smoker Yes 09/25/25 15:16 Duration of Surgery greater Yes 09/25/25 15:16 than 60 minutes Number of Risk Factors 2 09/25/25 15:16 PONV Score Moderate Risk 09/25/25 15:16 Height & Weight Height & Weight: Anesthesia: Height & Weight Height 6 ft 2 in 08/10/25 08:57 Respiratory Assessment Respiratory Assessment - computer systems technology instructor: Respiratory Tract Infection Hx - 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 Has anyone observed you stop breathing during sleep? STOP Results Positive 09/25/25 15:16 QUESTION #5 FULL TEXT : Do you snore loudly (louder than talking or can be heard through closed doors)? 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 Specify any problems Hx of Preganancy in last 3 N/A 09/25/25 15:16 Months Nurse Filling Out Transfusion [id number] 09/25/25 15:16 & Questions: Date: 09/25/25 09/25/25 15:16 Time: 15:24 09/25/25 15:16 Patient unable to answer at this time (ie. 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 systems technology instructor Hx Now Gestational Age (in weeks): EDC: Hx Hx Para Hx Section SAB Does the father of the baby or his family experience fever w Father of the baby Malignant Hypertension history comment PFSH Medical History (Updated 09/25/25 @ 15:40 by lIia Shelton) Chest pain History of steroid therapy Thyroid disease Arthritis Fatty liver Injury of head and neck Back pain History of hiatal hernia Sleep apnea CPAP (continuous positive airway pressure) dependence Shortness of breath on exertion Former smoker History of edema History of stress test History of echocardiogram Cardiology follow-up encounter Atrial fibrillation History of pneumonia History of sepsis Hypersomnia, unspecified Nicotine dependence Patent foramen ovale Morbid (severe) obesity due to excess calories Hyperthyroidism Paroxysmal atrial fibrillation Home Medications Medication Instructions Recorded Last Taken Type aspirin 81 mg tablet,delayed 81 mg PO DAILY 02/28/19 0 04/05/19 History release (Adult Aspirin Regimen) dofetilide 500 mcg capsule 500 mcg PO BID #180 caps Unknown History methimazole 5 mg tablet 2.5 mg PO DAILY 02/17/24 Unk nown History coenzyme Q10 1 tab PO QDAY 04/13/25 Unkno wn History krill oil 1 cap PO QDAY 04/13/25 Unkno wn History magnesium glycinate 3 tab PO QDAY 04/13/25 Unkno wn History metoprolol tartrate 25 mg tablet 25 mg PO BID PRN HEAR T RACING 04/13/25 Unknown History omega-3 fatty acids 1 cap PO QDAY 04/13/25 Unkno wn History vitamin B complex 1 tab PO QDAY 04/13/25 Unkno wn History turmeric 400 mg capsule 400 mg PO DAILY 09/25/25 Unk nown History vitamin E 268 mg (400 unit) capsule 268 mg PO BID 03/16 Unknown History Allergy/AdvReac Type Severity Reaction Status Date / Time No Known Allergies Allergy Verified 09/25/25 15:11 Family History Father Diabetes Hypertension Mother Diabetes Hypertension Grandmother Myocardial infarction Surgical History H/O cardiac ablation History of left heart catheterization (03/06/19) History of foot surgery History of cardioversion (04/06/19) Social History Smoking Status: Former smoker Tobacco: How many years used: 9 Smokeless tobacco user: chewing tobacco and snuff how long ago did patient quit smokin years ago second hand exposure: Yes alcohol intake: current alcohol intake frequency: holidays/special occasions only substance use type: does not use caffeine: Yes Type: coffee Number of servings: 3 Audit: Pertinent Findings HISTORY of Pertinent Findings History of Pertinent Findings: History of pAF / BEL with recurrence despite Tikosyn, s/p PVI + CTI ablation 11/2023, CARMEN on CPAP. Pertinent Findings EKG Perinent findings: 06/2025: SR Stress test pertinent findings: 10/2024: Normal stress echocardiogram. EF 50%, LV dilated. Stress EKG: Occasional PACs, occasional PVCs, no ST depression. Stress EKG read as normal based on ishcemic changes, but patient had frequent atrial arrhythmias and runs of atrial tachycardia in recovery Echo (EF%) pertinent findings: EF 50%, otherwise echo findings WNL Recommendation Anesthesia Recommendation Anesthesia recommendation: OPTIMIZED for anesthesia
[2025-10-22] VITALS (13 sets, daily range): BP systolic 100–145; BP diastolic 60–88; PULSE 47–68; RESP 10–20; TEMP 36.1–36.6; O2SAT 94–100; BMI 44.1
--- OUTSIDE RECORDS SUMMARY | 2025-10-22 05:18 | XMS RPT_ITS | CCD ---
Author Organization [facility] Care Team Providers Care Glass Bead Maker Name Role Phone Luis M Gonzalez Primary Care Provider Curry Banda Primary Care Provider [phone] Luis M Gonzalez Primary Care Provider [phone] Solo COLEY, Dr. Arana Primary Care Provider Dr. Curry Banda MD Referring Provider Alvina WARNER-CPaulina Attending Provider Dr. Fernando Garcia MD Attending Provider Dr. Fernando Garcia MD Referring Provider Dr. Curry Banda MD Attending Provider [phone] Dr. Curry Banda MD Primary Care Physician Dr. Fernando Garcia MD Attending Physician Dr. Curry Banda MD Attending Physician Dr. Curry Banda MD Referring Provider Alvina MANAGER TECHNICAL-CPaulina Attending Physician FERNANDO GARCIA Attending Unavailable BANDA, CURRY Primary Care Unavailable JEANETTE DIXON Attending Unavailable JEANETTE DIXON Referring Unavailable BANDA, CURRY Primary Care Unavailable JEANETTE DIXON Attending Unavailable DESTINY, JEANETTE Referring Unavailable BANDA, CURRY Primary Care Unavailable NICKIE GERBER Attending Unavailable BANDA, CURRY Primary Care Unavailable BANDA, CURRY Primary Care Unavailable JEANETTE DIXON Attending Unavailable BANDA, CURRY Primary Care Unavailable Abhay Fletcher Attending Unavailable Abhay Fletcher Referring Unavailable Banda, Curry Primary Care Unavailable Luis Miguel Jain Consulting Unavailable ALEKS RODRIGUES Consulting Unavailable ALEKS RODRIGUES Attending Unavailable ALEKS RODRIGUES Referring Unavailable Banda, Curry Primary Care Unavailable Paulina Tinsley Attending Unavailable Banda, Curry Referring Unavailable Banda, Curry Primary Care Unavailable Paulina Tinsley Attending Unavailable Banda, Curry Referring Unavailable Banda, Curry Primary Care Unavailable Banda, Curry Primary Care Unavailable Fernando Garcia Attending Unavailable Fernando Garcia Referring Unavailable Banda, Curry Attending Unavailable Banda, Curry Referring Unavailable Banda, Curry Primary Care Unavailable Abhay Fletcher Referring Unavailable Banda, Curry Primary Care Unavailable Abhay Fletcher Attending Unavailable Banda, Curry Attending Unavailable Banda, Curry Referring Unavailable Banda, Curry Primary Care Unavailable Medications Current Medications Medication Drug Class(es) Dates Sig (Normalized) Sig (Original) aspirin 81 mg delayed release oral tablet (20 sources) Platelet Aggregation Inhibitor, Nonsteroidal Anti-inflammatory Drug Start: 02-28-2019 take 1 tablet by mouth once daily Aspirin (Adult Aspirin Regimen) 81 mg tablet,delayed release (DR/EC) Active 81 mg PO DAILY February 28, 2019 12:00am Complies with drug therapy Start: 10-09-2013 End: 12-02-2018 take 1 tablet [...] mouth daily 0 Active coenzyme Q10 (CoQ-10) (3 sources) Start: 04-13-2025 coenzyme Q10 ( CoQ-10) Active PO daily April 13, 2025 12:00am Complies with drug therapy Start: 04-13-2025 coenzyme Q10 ( CoQ-10) Active PO daily April 13, 2025 12:00am docosahexaenoic acid 120 mg / eicosapentaenoic acid 180 mg oral capsule (20 sources) take 1 capsule by mouth in the morning omega-3 (Fish Oil) 1000 MG capsule Take 1,000 mg by mouth in the morning. Active dofetilide 0.5 mg oral capsule (20 sources) Antiarrhythmic Start: 9 End: 5 take 1 capsule by mouth twice daily dofetilide (Tikosyn) 500 MCG capsule Take 1 capsule by mouth twice daily 180 capsule 06/11/2025 Active Start: 07-17-2019 take 1 capsule by mo uth every [...] 06-27-2019 dofetilide (TI KOSYN) capsule 500 mcg [id number] C- MN PO (1 source) GLUCOSAMINE-DEMETRIS DROIT-VIT C-MN PO Take by mouth daily. 0 Active krill oil (3 sources) Start: 04-13-2025 krill oil Active PO daily Ma 2024 12:00am Complies with drug therapy Start: 04-13-2025 krill oil Acti ve PO daily April 13, 2025 12:00am KRILL OIL PO (20 sources) KRILL OIL PO Dl e by mouth daily. Active KRILL OIL PO Dl e by mouth daily. 0 Active Magnesium glycinate (3 sources) Start: 04-13-2025 magnesium glyc inate Active PO daily April 13, 2025 12:00am Complies with drug therapy Start: 04-13-2025 magnesium glyc inate Active PO [...] mg PO DAILY February 17, 2024 11:13am Complies with drug therapy Start: 10-28-2023 End: 06-27-2025 take 0.5 tablet [...] pain (1-3). Active omega-3 acid ethyl esters (halfway) 1000 mg oral capsule (2 sources) take 1 capsule by mouth once daily [place]-3 Fatty Acids (FISH OIL) 1000 MG CAPS Take 1,000 mg by mouth daily 0 Active omega-3 fatty acids (Fish Oil) (3 sources) Start: omega-3 fatty acids (Fish Oil) Active PO daily April 13, 2025 12:00am Complies with drug therapy Start: 04-13-2025 omega-3 fatty acids (Fish Oil) Active PO [...] mouth daily 0 Active Vitamin B Complex (3 sources) Start: 04-13-2025 vitamin B comp dottie (B Complex Super) Active PO daily April 13, 2025 12:00am Complies with drug therapy Start: 04-13-2025 vitamin B comp dottie (B [...] 5 mg PO TWICE A DAY 90 July 21, 2019 8:05am July 04, 2020 2:14pm ciprofloxacin 500 mg oral tablet (7 sources) Quinolone Antimicrobial Start: 10-11-2013 End: 12-01-2017 Ciprofloxacin Hcl 500 MG tablet Discontinued 750 mg PO TWICE A DAY 10 October 11, 2013 1:00am December 01, 2017 9:34pm Start: 10-11-2013 End: 12-01-2017 take 750 mg by mouth twice daily Ciprofloxacin Hcl Discontinued 750 MG PO TWICE A DAY October 11, 2013 12:00am December 01, 2017 8:34pm clopidogrel 75 mg oral tablet (14 sources) P2Y12 Platelet Inhibitor Start: 04-04-2019 End: [...] 4:00pm flecainide acetate 150 mg oral tablet (20 sources) Antiarrhythmic Start: 12-26-2018 End: 05-12-2019 take [...] 6:00pm oxyCODONE hydrochloride 5 mg oral tablet (7 sources) Opioid Agonist Start: 10-11-2013 End: 12-01-2017 [...] Classification Problem Date Documented Da te Episodic/Chronic Cancer of colon (1 source) Malignant neoplasm of colon, unspecified; Translations: [Malignant neoplasm of colon, unspecified] Onset: 10-03-2025 Chronic Cardiac and circulatory congenital anomalies (7 sources) Patent foramen ovale; Translations: [Atrial septal defect] 04-05-2019 Chronic Comment on above: with bidirectional s hunting per ESTHER Cardiac dysrhythmias (20 sources) Atrial fibrillation; Translations: [Unspecified atrial fibrillation] Onset: 02-06-2017 06-28-2019 Chronic Disorders of lipid metabolism (20 sources) Hyperlipidemia; Translations: [Hyperlipidemia, unspecified] Onset: 01-01-2016 09-17-2022 Chronic Genitourinary symptoms and ill-defined conditions (1 source) Other polyuria; Translations: [Other polyuria] Onset: 07-11-2025 Episodic Osteoarthritis (1 source) Primary osteoarthritis, right shoulder; Translations: [Primary osteoarthritis, right shoulder] Onset: 10-02-2025 Chronic Other gastrointestinal disorders (20 sources) Irritable bowel syndrome with diarrhea; Translations: [Irritable bowel syndrome with diarrhea] Onset: 09-27-2015 09-17-2022 Chronic Other infections; including parasitic (7 sources) History of sepsis; Translations: [Personal history of other infectious and parasitic diseases] 01-04-2020 Episodic Other liver diseases (1 source) Fatty (change of) liver, not elsewhere classified; Translations: [Fatty (change of) liver, not elsewhere classified] Onset: 10-03-2025 Chronic Other lower respiratory disease (7 sources) H/O: pneumonia; Translations: [Personal history of pneumonia (recurrent)] 01-04-2020 Episodic Other nutritional; endocrine; and metabolic disorders (1 source) Morbid obesity; Translations: [Morbid (severe) obesity due to excess calories] Chronic Other nutritional; endocrine; and metabolic disorders (20 sources) Obesity; Translations: [Obesity, unspecified] Onset: 01-02-2016 09-17-2022 Chronic Other nutritional; endocrine; and metabolic disorders (9 sources) Obesity caused by energy imbalance; Translations: [Morbid (severe) obesity due to excess calories] 04-05-2019 Chronic [place]-; endo-; and myocarditis; cardiomyopathy (except that caused by tuberculosis or sexually transmitted disease) (8 sources) Cardiomyopathy; Translations: [Cardiomyopathy associated with another disorder] 04-05-2019 Chronic Residual codes; unclassified (20 sources) Obstructive sleep apnea syndrome; Translations: [Obstructive sleep apnea (adult) (pediatric)] Onset: 06-28-2019 06-28-2019 Chronic Comment on above: AHI 45 on BiPAP 21/1 7 cmH2O with residual AHI of 1.9 Residual codes; unclassified (7 sources) Hypersomnia; Translations: [Hypersomnia, unspecified] 01-04-2020 Chronic Residual codes; unclassified (7 sources) History of operative procedure on foot; Translations: [Other specified postprocedural states] 01-04-2020 Episodic Comment on above: sepsis Residual codes; unclassified (1 source) Family history of malignant neoplasm of digestive organs; Translations: [Family history of malignant neoplasm of digestive organs] Onset: 10-03-2025 Episodic Substance-related disorders (7 sources) Nicotine dependence; Translations: [Nicotine dependence, unspecified, uncomplicated] 04-05-2019 Chronic Thyroid disorders (20 sources) Hyperthyroidism; Translations: [Thyrotoxicosis, unspecified without thyrotoxic crisis or storm] Onset: 12-05-2010 09-17-2022 Chronic Past or Other Problems Problem Classification Problem Date Documented Date Episodic/Chronic Diabetes mellitus without complication (20 sources) Impaired fasting glycemia; Translations: [Impaired fasting glucose] Onset: 01-01-2016 09-17-2022 Episodic Nonspecific chest pain (16 sources) Chest pain; Translations: [Chest pain, unspecified] Onset: 11-03-2024 04-05-2019 Episodic Other screening for suspected conditions (not mental disorders or infectious disease) (20 sources) Other specified abnormal findings of blood chemistry; Translations: [Other abnormal blood chemistry] Onset: 01-01-2016 09-17-2022 Episodic Residual codes; unclassified (7 sources) History of cardioversion; Translations: [Other specified postprocedural states] Onset: 04-06-2019 01-04-2020 Episodic Residual codes; unclassified (7 sources) History of cardiac catheterization; Translations: [Other specified postprocedural states] Onset: 03-06-2019 01-04-2020 Episodic Results Test Name Value Interpretation Reference Range Facility Hemoglobin A1con 10-03-2025 HbA1c (Bld) [Mass fraction] 5.9 % High <=5.6 [facility] Comment on above: Result Comment: Norm al < 5.7 % Prediabetic 5.7 - 6.4 % Diabetic >or= 6.5 % Please note range changes. Performed By: #### L 501.9520, L506.0400, L501.9985 ####[facility] [address] [place], [address] T4 Free Directon 10-03-2025 T4 FREE DIRECT 1.10 ng/dL Normal 0.76-1.46 [facility] Comment on above: Performed By: #### L 501.9520, L506.0400, L501.9985 ####[facility] [address] [place], [address] Thyroid Stim Hormone (TSH)on 10-03-2025 TSH 2.620 uIU/mL Normal 0.300-4.200 [facility] Comment on above: Performed By: #### L 501.9520, L506.0400, L501.9985 ####[facility] [address] [place], [address] MRSA/SAID NASAL SCREENon MRSA+SAID SCRN Reason for Exam: Surgery Copy of report sent to Infection Control Printer [id number] 09/28/25 4494 NORAB[address]Y. MRSA MRSA Negative S. AUREUS S. aureus PositiveA Normal [facility] Comment on above: Performed By: #### L 500.2500, L100.0100, L501.1800, M100.651 ####[facility] [address] [place], [address] MR/PAT.ANEon 09-27-2025 MR/PAT.ANE [facility] Medical Records Department [address] [place] [address] PAT - Anesthesia 09/27/25 1342 MR#: [id number] Acct: [id number] Name: JORGITO FRAGA Mariam Rep #: [id number] : [id number] From: Alpesh Cordoba MD PCP: Dr. Curry Banda MD [place] [facility] [place] C [place] [facility] [place]Assessment Diagnosis/Proposed Procedure Planned Operative Procedure(s): ERAS RIGHT TOTAL HEMIARHTROPLASTY Anesthesia History Anesthesia History - blow down operator: Anesthesia History - blow down operator Hx Hospitalization No 09/25/25 15:16 Any Problems With Anesthesia No 09/25/25 15:16 Cholinesterase deficiency No 09/25/25 15:16 You/Your Family Experience No 09/25/25 15:16 fever (hyperthermia) with Relationship Recent Exposure to Contagious No 10/09/13 23:36 Disease Does patient have nerve No 09/25/25 15:16 stimulator Patient instructed to have device shut off --Does patient have Pacemaker or ICD? When Was Last Pacemaker Check QUESTION #4 FULL TEXT: You/Your Family Experience fever (hyperthermia) with Anesthesia Last Oral Intake Last Oral intake: Last Oral Intake NPO since Meds taken in AM with sips of water? Meds patient instructed to take am of surgery PONV PONV - blow down operator: PONV - blow down operator Female No 09/25/25 15:16 HX of Motion Sickness No 09/25/25 15:16 HX of N/V After Surgery No 09/25/25 15:16 Non-Smoker Yes 09/25/25 15:16 Duration of Surgery greater Yes 09/25/25 15:16 than 60 minutes Number of Risk Factors 2 09/25/25 15:16 PONV Score Moderate Risk 09/25/25 15:16 Height Weight Height Weight: Anesthesia: Height Weight Height 6 ft 2 in 08/10/25 08:57 Respiratory Assessment Respiratory Assessment - blow down operator: Respiratory Tract Infection Hx - blow down operator Hx Respiratory Tract Infection No 09/25/25 15:16 STOP Sleep Apnea STOP Sleep Apnea - blow down operator: STOP Sleep Apnea - blow down operator Hx Hypertension No 09/25/25 15:16 Hx Sleep Apnea Yes 09/25/25 15:16 CPAP Yes 09/25/25 15:16 BIPAP No 09/25/25 15:16 Do you snore loudly (louder than talking or can be heard Do you often feel tired/ fatigued/ sleepy during daytime? Has anyone observed you stop breathing during sleep? STOP Results Positive 09/25/25 15:16 QUESTION #5 FULL TEXT : Do you snore loudly (louder than talking or can be heard through closed doors)? Tobacco Use History Tobacco Use History - blow down operator: Tobacco Use History - blow down operator Tobacco Use Smoking Status Former smoker 09/25/25 15:16 Hx Tobacco Use No 09/25/25 15:16 Years Smoking Packs Smoked per Day Smoking Cessation Date was Yes - quit smoking within 15 09/25/25 15:16 within the last 15 years years Hx Smoking Cessation Date Hx Smoking Cessation No 09/25/25 15:16 Counseling Hematologic Medial History Hematologic Hx - blow down operator: Hematologic Medical Hx - admitting coordinator Hx of Blood Transfusion No 09/25/25 15:16 Hx of Transfusion in last 3 No 09/25/25 15:16 Months Date of Last Transfusion (if within last 3 months) Ever experience any problems No 09/25/25 15:16 with transfusion(s)? Specify any problems Hx of Preganancy in last 3 N/A 09/25/25 15:16 Months Nurse Filling Out Transfusion [id number] 09/25/25 15:16 Questions: Date: 09/25/25 09/25/25 15:16 Time: 15:24 09/25/25 15:16 Patient unable to answer at this time (ie. confused, unrespo /Reproductio n History /Reproductiv e History - blow down operator: /Reproductiv e Hx- blow down operator Hx Now Gestational Age (in weeks): EDC: Hx Hx Para Hx Section SAB Does the father of the baby or his family experience fever w Father of the baby Malignant Hypertension history comment [facility] Medical History (Updated 09/25/25 @ 15:40 by Ilia Shelton) Chest pain History of steroid therapy Thyroid disease Arthritis Fatty liver Injury of head and neck Back pain History of hiatal hernia Sleep apnea CPAP (continuous positive airway pressure) dependence Shortness of breath on exertion Former smoker History of edema History of stress test History of echocardiogram Cardiology follow-up encounter Atrial fibrillation History of pneumonia History of sepsis Hypersomnia, unspecified Nicotine dependence Patent foramen ovale Morbid (severe) obesity due to excess calories Hyperthyroidism Paroxysmal atrial fibrillation Home Medications ???Medication ???Instructions ???Recorded ???Last Taken ???Type aspirin 81 mg tablet,delayed 81 mg PO DAILY 02/28/19 04/05/19 H istory (more content not included)... [facility] 29on 09-26-2025 29 Addended by: JEANETTE DIXON on: 09/26/2025 12:52 PM Modules accepted: Orders Normal [facility] 36on 09-26-2025 36 Order placed for 24 hour holter to quantify PVC's. Normal [facility] Albumin, Serumon 09-26-2025 Albumin [Mass/Vol] 4.2 g/dL Normal 3.5-5.0 [facility] Comment on above: Performed By: #### L 500.2500, L100.0100, L501.1800, M100.651 ####[facility] [address] [place], [address] Basic Metabolic Profile (BMP )on 09-26-2025 BUN/CRE 16.9 RATIO Normal 10-20 [facility] Comment on above: Performed By: #### L 500.2500, L100.0100, L501.1800, M100.651 ####[facility] [address] [place], [address] Calcium [Mass/Vol] 9.2 mg/dL Normal 7.6-11.0 [facility] Comment on above: Performed By: #### L 500.2500, L100.0100, L501.1800, M100.651 ####[facility] [address] [place], [address] Chloride [Moles/Vol] 104 mmol/L Normal 98-108 [facility] Comment on above: Performed By: #### L 500.2500, L100.0100, L501.1800, M100.651 ####[facility] [address] [place], [address] CO2 [Moles/Vol] 22.3 mmol/L Normal 21.0-32.0 [facility] Comment on above: Performed By: #### L 500.2500, L100.0100, L501.1800, M100.651 ####[facility] [address] [place], [address] Creatinine [Mass/Vol] 0.81 mg/dL Normal 0.70-1.20 [facility] Comment on above: Performed By: #### L 500.2500, L100.0100, L501.1800, M100.651 ####[facility] [address] [place], [address] GAP 13 Normal 5-15 [facility] Comment on above: Performed By: #### L 500.2500, L100.0100, L501.1800, M100.651 ####[facility] [address] [place], [address] GFR/1.73 sq M.predicted among non-blacks MDRD (S/P/Bld) [Vol rate/Area] 102 mL/min/{1.73_m2} Normal >60 [facility] Comment on above: Result Comment: mL/m in/1.73m2 CKD-EPI Creatinine Equation (2020) Performed By: #### L 500.2500, L100.0100, L501.1800, M100.651 ####[facility] [address] [place], [address] Glucose [Mass/Vol] 77 mg/dL Normal 70-99 [facility] Comment on above: Performed By: #### L 500.2500, L100.0100, L501.1800, M100.651 ####[facility] [address] [place], [address] Potassium [Moles/Vol] 4.3 mmol/L Normal 3.3-5.1 [facility] Comment on above: Performed By: #### L 500.2500, L100.0100, L501.1800, M100.651 ####[facility] [address] [place], [address] Sodium [Moles/Vol] 140 mmol/L Normal 133-145 [facility] Comment on above: Performed By: #### L 500.2500, L100.0100, L501.1800, M100.651 ####[facility] [address] [place], [address] Urea nitrogen [Mass/Vol] 14 mg/dL Normal 4-19 [facility] Comment on above: Performed By: #### L 500.2500, L100.0100, L501.1800, M100.651 ####[facility] [address] [place], [address] CBC W/Diff, Automatedon 11-0 5-2025 Absolute Lymph 3.11 X10 3/uL Normal 0.83-4.51 [facility] Comment on above: Performed By: #### L 500.2500, L100.0100, L501.1800, M100.651 ####[facility] [address] [place], [address] Absolute Neut 8.5 X10 3/uL High 2.0-7.7 [facility] Comment on above: Performed By: #### L 500.2500, L100.0100, L501.1800, M100.651 ####[facility] [address] [place], [address] Basophils/100 WBC (Bld) 0.7 % Normal 0-1 [facility] Comment on above: Performed By: #### L 500.2500, L100.0100, L501.1800, M100.651 ####[facility] [address] [place], [address] Eosinophils/100 WBC (Bld) 1.4 % Normal 0-5 [facility] Comment on above: Performed By: #### L 500.2500, L100.0100, L501.1800, M100.651 ####[facility] [address] [place], [address] Erythrocyte distribution width (RBC) [Ratio] 13.2 % Normal 11.6-14.6 [facility] Comment on above: Performed By: #### L 500.2500, L100.0100, L501.1800, M100.651 ####[facility] [address] [place], [address] Hematocrit (Bld) [Volume fraction] 42.1 % Normal 40-54 [facility] Comment on above: Performed By: #### L 500.2500, L100.0100, L501.1800, M100.651 ####[facility] [address] [place], [address] Hemoglobin (Bld) [Mass/Vol] 14.6 g/dL Normal 13.0-16.5 [facility] Comment on above: Performed By: #### L 500.2500, L100.0100, L501.1800, M100.651 ####[facility] [address] [place], [address] IG% 0.200 Normal 0.0-0.9 [facility] Comment on above: Result Comment: IG% - Immature Granulocytes (promyelocytes, myelocytes and metamyelocytes) > 1% indicates that a LEFT SHIFT is Present. Performed By: #### L 500.2500, L100.0100, L501.1800, M100.651 ####[facility] [address] [place], [address] Lymphocytes/100 WBC (Bld) 24.4 % Normal 19-41 [facility] Comment on above: Performed By: #### L 500.2500, L100.0100, L501.1800, M100.651 ####[facility] [address] [place], [address] MCH (RBC) [Entitic mass] 29.1 pg Normal 27.0-32.0 [facility] Comment on above: Performed By: #### L 500.2500, L100.0100, L501.1800, M100.651 ####[facility] [address] [place], [address] MCHC (RBC) [Mass/Vol] 34.7 g/dL Normal 32-36 [facility] Comment on above: Performed By: #### L 500.2500, L100.0100, L501.1800, M100.651 ####[facility] [address] [place], [address] MCV (RBC) [Entitic vol] 83.9 fL Normal 80-94 [facility] Comment on above: Performed By: #### L 500.2500, L100.0100, L501.1800, M100.651 ####[facility] [address] [place], [address] Monocytes/100 WBC (Bld) 6.5 % Normal 0-10 [facility] Comment on above: Performed By: #### L 500.2500, L100.0100, L501.1800, M100.651 ####[facility] [address] [place], [address] Neutrophils/100 WBC (Bld) 66.8 % Normal 47-70 [facility] Comment on above: Performed By: #### L 500.2500, L100.0100, L501.1800, M100.651 ####[facility] [address] [place], [address] Nucleated RBC (Bld) [#/Vol] 0 10*3/uL Normal 0-5 [facility] Comment on above: Performed By: #### L 500.2500, L100.0100, L501.1800, M100.651 ####[facility] [address] [place], [address] Platelet mean volume (Bld) [Entitic vol] 9.0 fL Normal 6.2-12.0 [facility] Comment on above: Performed By: #### L 500.2500, L100.0100, L501.1800, M100.651 ####[facility] [address] [place], [address] Platelets (Bld) [#/Vol] 304 10*3/uL Normal 150-450 [facility] Comment on above: Performed By: #### L 500.2500, L100.0100, L501.1800, M100.651 ####[facility] [address] [place], [address] RBC (Bld) [#/Vol] 5.02 10*6/uL Normal 4.6-6.2 [facility] Comment on above: Performed By: #### L 500.2500, L100.0100, L501.1800, M100.651 ####[facility] [address] [place], [address] RDW SD 40.6 fl Normal 35.1-43.9 [facility] Comment on above: Performed By: #### L 500.2500, L100.0100, L501.1800, M100.651 ####[facility] [address] [place], [address] WBC (Bld) [#/Vol] 12.7 10*3/uL High 4.4-11.0 [facility] Comment on above: Performed By: #### L 500.2500, L100.0100, L501.1800, M100.651 ####[facility] [address] [place], [address] Extremity Upper without Cont raon 09-26-2025 Extremity Upper without Contra [facility] Imaging Services [address] [place] [address] Extremity Upper without Contra MR#: [id number] Acct: [id number] Name: JORGITO FRAGA Mariam Rep #: [id number] : 1965 M 60 From: Manolo Forrest MD PCP: Dr. Curry Banda MD Status: REG CLI Study: Extremity Upper without Contra Date of Exam: 11/26/24 Exam# [id number] Ordering Dr: Abhay Fletcher DO PROCEDURE: EXTREMITY UPPER WITHOUT CONTRA 09/26/2025 REASON FOR EXAM: PRE OP SHOULDER TECHNIQUE: Procedure Code: CTEUWO Modality: CT Procedure: EXTREMITY UPPER WITHOUT CONTRA Coronal and Sagittal reconstruction series were provided. One or more dose reduction techniques were used (e.g., Automated exposure control, adjustment of the mA and/or kV according to patient size, use of iterative reconstruction technique. RADIATION DOSE SUMMARY: DLP: 3507 mGycm COMPARISON: None FINDINGS: There is severe osteoarthritis of the glenohumeral articulation with flattening of the articular surfaces, subcortical cyst formation, and marginal osteophytes. There is moderate AC joint hypertrophy without evidence of separation. There is no acute fracture or dislocation identified. There is no visible muscular atrophy. The included portion of the right lung is clear. CT/Extremity Upper without Contra IMPRESSION: There is severe osteoarthritis of the glenohumeral articulation with flattening of the articular surfaces, subcortical cyst formation, and marginal osteophytes. Reading Location: [facility] CC: Dr. Curry Banda MD; Dr. Abhay Fletcher DO Oven Dauber: Signed Normal [facility] Magnesiumon 09-26-2025 Magnesium [Mass/Vol] 2.0 mg/dL Normal 1.5-2.2 [facility] Comment on above: Performed By: #### L 501.9520, L501.5200 ####[facility] [address] [place], [place], [id number] Thyroid Stim Hormone (TSH)on 09-26-2025 TSH 2.590 uIU/mL Normal 0.300-4.200 [facility] Comment on above: Performed By: #### L 501.9520, L501.5200 ####[facility] [address] [place], [place], [id number] 36on 09-25-2025 36 Called and left patient VM, also sent mychart message. Scheduled EKG nurse visit 09-26-25 @ 9:30. Asked if time and date do not work for patient to call back. [facility] 36 Rescheduled pts upcoming appt with Dr. Garcia on 12/24/25 to 01/04/26 with Sandra Aguila. Sent letter via [employer] and mailed a letter to pts home address as well. [facility] 36on 09-24-2025 36 PC to patient's spouse. Faye reports patient has been out of rhythm since at least September 12, 2025. Pt reports chest pain, exertional dyspnea and increase in fatigue. Pt take metoprolol prn for symptomatic heart palpitations. Has been having to take 1-2 prn to help control rates. Pt spouse reports she does not have a ECG monitor or device to monitor HR/BP. Pt takes Tikosyn 500mcg twice daily and metoprolol 2 times prn for changes in HR. Pt spouse asking if it is ok to move forward with Right shoulder hemiarthroplasty scheduled for October 22, 2025. PVI SVT typical atrial flutter on 12/02/23. Pt not on anticoagulation. [facility] 36 Patient's spouse called in and LM to report the patient has been "in and out of rhythm since the evening of the ". PC to spouse to clarify. She said patient has been taking prescribed medications as usual in the morning, but when he comes home, he seems to be out of rhythm again before evening dose. She said this weekend was not as bad as the past week, but patient has been symptomatic, showing signs of fatigue. Patient also mentioned chest pain on Wednesday. She noticed that when given metoprolol, it is not as "fast working" as normal. She was "listening" to his heart last night and noticed his heart would "skip a beat". Patient's spouse said throughout this time they were not keeping track of HR or BP. Patient's spouse was concerned about upcoming surgery, he is still planning on his procedure on 10-22-25. She asked if he "can still have surgery if he is in a-fib"? She was also wondering if a cardioversion was the recommended course of action, and if so, she was wondering whether it can be done before the surgery. Please advise. EASTON: 07/13/25 NOV: 02/08/26 [facility] 36on 09-13-2025 36 Signed clearance faxed, as well as OV note. As well as sent to stat scanning. [facility] 36 Form complete and returned to paralegal legal secretary to fax. [facility] 36on 09-12-2025 36 Received cardiac clearance from [facility]. Patient scheduled for right shoulder hemiarthroplasty on 10-22-25. Printed and placed on [facility] desk for review and signature. [facility] 07-13-25 [facility] 02-08-26 [facility] Pulmonary Visit Reporton Pulmonary Visit Report [facility] [address] [place] [address] OFFICE VISIT Date of Service: 08/10/25 MR#: [id number] Acct: [id number] Name: JORGITO FRAGA Rep #: [id number] : 1965 Provider: KIET Tinsley Age/Sex: 59/M Location: [facility] Status: Signed Assessment and Plan Assessment and Plan (1) CARMEN (obstructive sleep apnea): Status: Chronic Comment: AHI 45 on BiPAP 21/17 cmH2O with residual AHI of 1.9 Plan: Improved. He is using and benefiting from Pap therapy. No indication for titration study at this time. Contact the office for any new or worsening symptoms in the meantime. Follow-up in 1 year. (2) Atrial fibrillation: Status: Chronic Qualifiers: Atrial fibrillation type: paroxysmal Qualified Code(s): I48.0 - Paroxysmal atrial fibrillation Plan: Complicates exam, plan, care and prognosis. (3) Morbid (severe) obesity due to excess calories: Status: Chronic Plan: Complicates exam, plan, care and prognosis. Continue to encourage healthy weight loss. Plan This note was generated with [employer] software. It may contain incorrect words, spelling, and punctuation that were not noted in checking the note before signing. Plan Details Follow Up: 1 Year HPI HPI Comments Details: This patient presents to the office today for routine follow-up of his obstructive sleep apnea. He is ambulatory and currently on room air. He is accompanied today by his . He has not been seen in the ED or urgent care for any respiratory illness recently. He has not required any antibiotics or prednisone for any breathing problems. He is a lifelong never smoker. He denies any difficulty with shortness of breath. He denies any wheezing, chest tightness, chest pain or palpitations. He has an occasional cough that is nonproductive. He denies any fever, chills or body aches. He is waking feeling more rested and refreshed. He is no longer having difficulty with mask leaks. He is no longer having dry mouth. He denies excessive nocturia. He is pleased to report he is able to sleep for at least 4 hours straight without interruption. He is happy with the reduced pressure. Compliance report for the past 30 days shows 100% compliance with an average use of 6 hours and 3 minutes per night. Current setting is BiPAP 19/15 cmH2O with residual AHI 2.2 events per hour. Leaks to appear to be occurring routinely. Intake Vital Signs 04/13/25 08:33 08/10/25 08:57 Height 6 ft 2 in 6 ft 2 in Weight: 335 lb 336 lb BMI 43.0 43.1 BP 164/79 H 131/67 H Blood Pressure Location Lt radial Lt brachial Position Sitting Sitting Respiration 18 20 H Pulse 98 73 Pulse Source NIBP Monitor Temp 97.4 F L 95.6 F L Temperature Source Oral Temporal Artery Pulse Oximetry (%) 99 96 Oxygen Delivery Method room air room air Intake Visit Reasons: 3 M FU Chief Complaint: CARMEN Graphics Editor Required: No DME Vendor: Rashida Accompanied by: Allergies No Known Allergies Allergy (Verified 08/10/25 13:05) Medications ???Medication ???Instructions ???Recorded ???Confirmed ???Type aspirin 81 mg tablet,delayed 81 mg PO DAILY 02/28/19 08/10/25 H istory release (Adult Aspirin Regimen) dofetilide 500 mcg capsule PO #180 caps 10/12/19 08/10/25 His tory methimazole 5 mg tablet 2.5 mg PO DAILY 02/17/24 08/10/25 History coenzyme Q10 [CoQ-10] PO QDAY 04/13/25 08/10/25 History krill oil PO QDAY 04/13/25 08/10/25 History magnesium glycinate PO QDAY 04/13/25 08/10/25 History metoprolol tartrate 25 mg tablet 25 mg PO BID PRN 04/13/25 08/10/25 History omega-3 fatty acids [Fish Oil] PO QDAY 04/13/25 08/10/25 History vitamin B complex [B Complex Super] PO QDAY 04/13/25 08/10/25 Histo [facility] Medical History Atrial fibrillation History of pneumonia History of sepsis Hypersomnia, unspecified Nicotine dependence Patent foramen ovale Morbid (severe) obesity due to excess calories Hyperthyroidism Paroxysmal atrial fibrillation Surgical History History of left heart catheterization (03/06/19) History of foot surgery History of cardioversion (04/06/19) Family History Father Diabetes Hypertension Mother Diabetes Hypertension Grandmother Myocardial infarction Social History Smoking Status: Never smoker Tobacco: How many years used: 9 Smokeless tobacco user: chewing tobacco and snuff how long ago did patient quit smokin years ago second hand exposure: Yes alcohol intake: current alcohol intake frequency: holidays/spec (more content not included)... Normal [facility] ECG 12 lead - CLINIC PERFORM EDon 07-13-2025 Sinus Rhythm -Nonspecific T-abnormality. [facility] Office Visiton 07-13-2025 Follow-up visit [id number] Jorgito Fraga 1965 M Date Provider Department Center 07/13/2025 [id number], MEET S [facility] CÉSAR [facility] [address] Ar Family [...] Father's Sister Mother's Brother Alive Level of Service:82573 MD OFFICE/OUTPATIENT ESTABLISHED LOW MDM 20 MIN Reason for Visit and Comments: 6 Month Follow-up [671] Normal [facility] Progress Noteon 07-13-2025 Progress Note [facility] Medical [facility] Cardiology [facility] CARDIOLOG[facility] - [address] [address] Dept: [phone] Dept Loc: [phone] Visit type: Established : 1965 Chief Complaint: Chief Complaint Patient presents with 6 Month Follow-up History of Present Illness: Jorgito Fraga is a 59 y.o. male with a history of pAF/AFl with recurrence despite Tikosyn, s/p PVI + CTI ablation 11/2023, CARMEN on CPAP. He has had a few episodes of AF. He usually just sits and rests when they occur. They are not too bothersome to him. He takes metoprolol as needed for these episodes. No episodes of syncope, dizziness, chest discomfort, shortness of breath, fatigue, or lightheadedness are reported. Past Medical History: Medical History[1] Past Surgical History Surgical History[2] Family History Family History[3] Social History Social History[4] Allergies: Allergies[5] Medications: Current Medications[6] Review of Systems: Review of Systems Constitutional: Positive for fatigue. HENT: Negative. Eyes: Negative. Respiratory: Positive for apnea. Cardiovascular: Positive for palpitations. Gastrointestinal: Negative. Endocrine: Negative. Genitourinary: Negative. Musculoskeletal: Negative. Skin: Negative. Allergic/Immunologic: Negative. Neurological: Positive for dizziness. Hematological: Negative. Psychiatric/Behaviora l: Negative. Physical Examination: Vitals: Vitals: 07/13/25 1502 BP: 106/64 BP Location: Left arm Patient Position: Sitting BP Cuff Size: Large adult Pulse: 68 SpO2: 96% Weight: (!) 337 lb 6.4 oz (153 kg) Height: 6' 1.5" (1.867 m) Body mass index is 43.91 kg/m?. Physical Exam Constitutional: Appearance: Normal appearance. HENT: [...] 11/17/2023 Lab Results Component Value Date GLUCOSE 95 12/21/2024 CALCIUM 9.0 12/21/2024 NA 136 12/21/2024 K 4.2 12/21/2024 CO2 25 12/21/2024 CL 105 12/21/2024 BUN 10 12/21/2024 CREATININE 0.83 12/21/2024 @LASTCMP@ Lab Results Component Value Date CHOL 145 11/26/2023 Lab Results Component Value Date TRIG 115 11/26/2023 Lab Results Component Value Date HDL 25 (A) 11/26/2023 Lab Results Component Value Date LDLCALC 97 11/26/2023 No results found for: BNP Assessment and Plan: 1. Paroxysmal atrial fibrillation (HCC) 2. Typical atrial flutter (HCC) - s/p PVI + CTI ablation 11/2023; recurrence afterwards - Continue Tikosyn at the current dose. - ECG shows normal QTc - Will obtain BMP from his PCP. Follow up in 6 months with IVELISSE. [1] Past Medical History: Diagnosis Date Atrial fibrillation (HCC) Heart murmur Hypothyroidism [2] Past Surgical History: Procedure Laterality Date ABLATION FOR ATRIAL FIBRILLATION (HISTORICAL) N/A 12/02/2023 CAPSULOTOMY, HAND 05/30/2008 12/19/18, 01/02/19, 04/05/19, 06/29/19 CARDIAC ELECTROPHYSIOLOGY PROCEDURE N/A 12/02/2023 Performed by Nickie Gerber MD at [facility] Cardiac Cath/EP Lab CARDIAC ELECTROPHYSIOLOGY PROCEDURE N/A 12/02/2023 Performed by Nickie Gerber MD at [facility] Cardiac Cath/EP Lab CARDIAC PROCEDURE 03/06/2019 TRANSESOPHAGEAL ECHOCARDIOGRAM 05/30/2008 [3] Family History Problem Relation Name Age of Onset Heart disease Maternal Grandmother No Known Problems Brother Pancreatic cancer Father Hypertension Father Arthritis Paternal Grandmother Cancer Maternal Grandfather Arthritis Father Cancer Mother's Sister Alcohol abuse Mother's Sister Diabetes type II Mother No Known Problems Sister Multiple sclerosis Father's Brother No Known Problems Father's Sister Heart disease Mother's Brother [4] Social History Tobacco Use Smoking status: Former Smokeless tobacco: Current Types: Snuff Substance Use Topics Alcohol use: Not Currently Drug use: Never Comment: Tea and sugar free henry xenia often [5] No Known Allergies [6] Current Outpatient Medications: acetaminophen (T (more content not included)... Normal [facility] Anion gap in Serum or Plasma Ordered By: Curry Banda on 07-07-2025 Anion gap [Moles/Vol] 12 mmol/L 5-15 [facility] BUN/creatinine ratioOrdered By: Curry Banda on 07-07-2025 Urea nitrogen/Creatinine [Mass ratio] 22.5 mg/mg High 10-20 [facility] Bilirubin, totalOrdered By: Curry Banda on 07-07-2025 Bilirubin [Mass/Vol] 1.01 mg/dL 0.00-1.30 [facility] Carbon dioxide, total [Moles /volume] in Central venous bloodOrdered By: Curry Banda on 07-07-2025 CO2 [Moles/Vol] 21.9 mmol/L 21.0-32.0 [facility] Chloride assayOrdered By: Thad Banda on 07-07-2025 Chloride [Moles/Vol] 105 mmol/L 98-108 [facility] Comprehensive Metabolic Prof ilon 07-07-2025 Albumin [Mass/Vol] 4.2 g/dL Normal 3.5-5.0 [facility] Comment on above: Order Comment: Order Date: 06/21/25 Order Info: 86-1 - CMP Order Info: 782-1 - PSAD Performed By: #### L 501.9985, L501.9940, L500.4050 #### [facility] [address] [place], [address] Albumin/Globulin [Mass ratio] 1.7 {ratio} Normal 0.9-2.4 [facility] Comment on above: Order Comment: Order Date: 06/21/25 Order Info: 86-1 - CMP Order Info: 782- - PSAD Performed By: #### L 501.9985, L501.9940, L500.4050 #### [facility] [address] [place], [address] ALK PHOS 57 U/L Normal 40-129 [facility] Comment on above: Order Comment: Order Date: 06/21/25 Order Info: 785- - CMP Order Info: 782-11 - PSAD Performed By: #### L 501.9985, L501.9940, L500.4050 #### [facility] [address] [place], [address] ALT [Catalytic activity/Vol] 23 U/L Normal <=46 [facility] Comment on above: Order Comment: Order Date: 06/21/25 Order Info: 86-1 - CMP Order Info: 782-11 - PSAD Performed By: #### L 501.9985, L501.9940, L500.4050 #### [facility] [address] [place], [address] AST [Catalytic activity/Vol] 19 U/L Normal <=37 [facility] Comment on above: Order Comment: Order Date: 06/21/25 Order Info: 86-1 - CMP Order Info: 782- - PSAD Performed By: #### L 501.9985, L501.9940, L500.4050 #### [facility] [address] [place], [address] Bilirubin [Mass/Vol] 1.01 mg/dL Normal 0.00-1.30 [facility] Comment on above: Order Comment: Order Date: 06/21/25 Order Info: 07-1 - CMP Order Info: 782- - PSAD Performed By: #### L 501.9985, L501.9940, L500.4050 #### [facility] [address] [place], [address] BUN/CRE 22.5 RATIO High 10-20 [facility] Comment on above: Order Comment: Order Date: 06/21/25 Order Info: 785- - CMP Order Info: 07- - PSAD Performed By: #### L 501.9985, L501.9940, L500.4050 #### [facility] [address] [place], [address] Calcium [Mass/Vol] 9.5 mg/dL Normal 7.6-11.0 [facility] Comment on above: Order Comment: Order Date: 06/21/25 Order Info: 07- - CMP Order Info: 07 - PSAD Performed By: #### L 501.9985, L501.9940, L500.4050 #### [facility] [address] [place], [address] Chloride [Moles/Vol] 105 mmol/L Normal 98-108 [facility] Comment on above: Order Comment: Order Date: 06/21/25 Order Info: 0786-1 - CMP Order Info: 0783- - PSAD Performed By: #### L 501.9985, L501.9940, L500.4050 #### [facility] [address] [place], [address] CO2 [Moles/Vol] 21.9 mmol/L Normal 21.0-32.0 [facility] Comment on above: Order Comment: Order Date: 06/21/25 Order Info: 0786-1 - CMP Order Info: 07 - PSAD Performed By: #### L 501.9985, L501.9940, L500.4050 #### [facility] [address] [place], [address] Creatinine [Mass/Vol] 0.72 mg/dL Normal 0.70-1.20 [facility] Comment on above: Order Comment: Order Date: 06/21/25 Order Info: 785-11 - CMP Order Info: 782-11 - PSAD Performed By: #### L 501.9985, L501.9940, L500.4050 #### [facility] [address] [place], [address] GAP 12 Normal 5-15 [facility] Comment on above: Order Comment: Order Date: 06/21/25 Order Info: 785-11 - CMP Order Info: 782-11 - PSAD Performed By: #### L 501.9985, L501.9940, L500.4050 #### [facility] [address] [place], [address] GFR/1.73 sq M.predicted among non-blacks MDRD (S/P/Bld) [Vol rate/Area] 106 mL/min/{1.73_m2} Normal >60 [facility] Comment on above: Order Comment: Order Date: 06/21/25 Order Info: 07 - CMP Order Info: 782-11 - PSAD Result Comment: mL/m in/1.73m2 CKD-EPI Creatinine Equation (2020) Performed By: #### L 501.9985, L501.9940, L500.4050 #### [facility] [address] [place], [address] Globulin (S) [Mass/Vol] 2.5 g/dL Normal 2.2-4.2 [facility] Comment on above: Order Comment: Order Date: 06/21/25 Order Info: 07 - CMP Order Info: 07 - PSAD Performed By: #### L 501.9985, L501.9940, L500.4050 #### [facility] [address] [place], [address] Glucose [Mass/Vol] 108 mg/dL High 70-99 [facility] Comment on above: Order Comment: Order Date: 06/21/25 Order Info: 785- - CMP Order Info: 782- - PSAD Performed By: #### L 501.9985, L501.9940, L500.4050 #### [facility] [address] [place], [address] Potassium [Moles/Vol] 4.3 mmol/L Normal 3.3-5.1 [facility] Comment on above: Order Comment: Order Date: 06/21/25 Order Info: 785-11 - CMP Order Info: 782-11 - PSAD Performed By: #### L 501.9985, L501.9940, L500.4050 #### [facility] [address] [place], [address] Sodium [Moles/Vol] 139 mmol/L Normal 133-145 [facility] Comment on above: Order Comment: Order Date: 06/21/25 Order Info: 785-11 - CMP Order Info: 782-11 - PSAD Performed By: #### L 501.9985, L501.9940, L500.4050 #### [facility] [address] [place], [address] T PROT 6.7 g/dL Normal 5.9-8.4 [facility] Comment on above: Order Comment: Order Date: 06/21/25 Order Info: 785- - CMP Order Info: 782- - PSAD Performed By: #### L 501.9985, L501.9940, L500.4050 #### [facility] [address] [place], [address] Urea nitrogen [Mass/Vol] 16 mg/dL Normal 4-19 [facility] Comment on above: Order Comment: Order Date: 06/21/25 Order Info: 0786-1 - CMP Order Info: 0783-1 - PSAD Performed By: #### L 501.9985, L501.9940, L500.4050 #### [facility] [address] [place], [place], [id number] Glomerular filtration rate ( GFR) estimation/1.73 sq m using serum, plasma, or whole bOrdered By: Curry Banda on 07-07-2025 GFR/1.73 sq M.predicted among non-blacks MDRD (S/P/Bld) [Vol rate/Area] 106 mL/min/{1.73_m2} >60 [facility] Comment on above: mL/min/1.73m2 CKD-EP I Creatinine Equation (2020) Hemoglobin A1con 07-07-2025 HbA1c (Bld) [Mass fraction] 6.1 % High <=5.6 [facility] Comment on above: Order Comment: Order Date: 06/21/25 Order Info: 4548-4 - A1C Result Comment: Norm al < 5.7 % Prediabetic 5.7 - 6.4 % Diabetic >or= 6.5 % Please note range changes. Performed By: #### L 501.9985, L501.9940, L500.4050 #### [facility] [address] [place], [place], [id number] Hemoglobin A1c percentageOrd ered By: Curry Banda on 07-07-2025 HbA1c (Bld) [Mass fraction] 6.1 % High <5.7 [facility] Comment on above: Normal < 5.7 % Predi abetic 5.7 - 6.4 % Diabetic >or= 6.5 % Please note range changes. Laboratory - Chemistry and C hemistry - challengeOrdered By: Curry Banda on 07-07-2025 AST [Catalytic activity/Vol] 19 U/L <38 [facility] PSA,Total- [employer]icon 06-22 PSA, DIAGNOSTIC 2.18 ng/mL Normal 0.00-4.00 [facility] Comment on above: Order Comment: Order Date: 06/21/25Order Info: 0786-1 - CMPOrder Info: 0783-1 - PSAD Result Comment: This test was performed using the [employer] tPSA method. Measured values of a patient??sample can vary depending on the testing procedure used. PSA values determined on patient samples by different testing procedures cannot be used interchangeably. If there is a change in PSA assays while monitoring therapy, sequential testing should be performed to confirm baseline values. Performed By: #### L 501.9985, L501.9940, L500.4050 ####[facility] [address] [place], [address] Potassium measurement (mass/ volume)Ordered By: Curry Banda on 07-07-2025 Potassium (Unsp spec) [Mass/Vol] 4.3 mmol/L 3.3-5.1 [facility] Serum creatinine measurement (mass/volume)Ordered By: Curry Banda on 07-07-2025 Creatinine [Mass/Vol] 0.72 mg/dL 0.70-1.20 [facility] Serum globulin measurementOr dered By: Curry Banda on 07-07-2025 Globulin (S) [Mass/Vol] 2.5 g/dL 2.2-4.2 [facility] Serum glucose measurement (m ass/volume)Ordered By: Curry Banda on 07-07-2025 Glucose [Mass/Vol] 108 mg/dL High 70-99 [facility] Serum or plasma alanine cali otransferase (ALT) measurementOrdered By: Curry Banda on 07-07-2025 ALT [Catalytic activity/Vol] 23 U/L <47 [facility] Serum or plasma albumin franck urement (mass/volume)Ordered By: Curry Banda on 07-07-2025 Albumin [Mass/Vol] 4.2 g/dL 3.5-5.0 [facility] Serum or plasma albumin/glob ulin mass ratioOrdered By: Curry Banda on 07-07-2025 Albumin/Globulin [Mass ratio] 1.7 {ratio} 0.9-2.4 [facility] Serum or plasma alkaline kristen sphatase measurementOrdered By: Curry Banda on 07-07-2025 ALP [Catalytic activity/Vol] 57 U/L 40-129 [facility] Serum or plasma calcium franck urement (mass/volume)Ordered By: Curry Banda on 07-07-2025 Calcium [Mass/Vol] 9.5 mg/dL 7.6-11.0 [facility] Serum or plasma urea nitroge n measurement (mass/volume)Ordered By: Curry Banda on 07-07-2025 Urea nitrogen [Mass/Vol] 16 mg/dL 4-19 [facility] Sodium levelOrdered By: Curry Banda on 07-07-2025 Sodium [Moles/Vol] 139 mmol/L 133-145 [facility] Total proteinOrdered By: Daksha Banda on 07-07-2025 Protein [Mass/Vol] 6.7 g/dL 5.9-8.4 [facility] 36on 06-11-2025 36 EASTON-12/16 KM NOV CMP-12/16 EKG-12/16 Normal [facility] Bilirubin directOrdered By: Fernando Garcia on 05-26-2025 Bilirubin.direct [Mass/Vol] 0.32 mg/dL High 0.00-0.30 [facility] Bilirubin, totalOrdered By: Fernando Garcia on 05-26-2025 Bilirubin [Mass/Vol] 0.92 mg/dL 0.00-1.30 [facility] Free T3on 05-26-2025 Free T3 [Mass/Vol] 2.8 pg/mL Normal 2.18-3.98 [facility] Comment on above: Performed By: #### L 500.3400, L501.9520, L501.49539, L506.0400 #### [facility] [address] [place] [place], [address] Free M5Jaizxiv By: Fernando campbell on 05-26-2025 Free T3 [Mass/Vol] 2.8 pg/mL 2.18-3.98 [facility] - Chemistry and C hemistry - challengeOrdered By: Fernando Garcia on 05-26-2025 AST [Catalytic activity/Vol] 20 U/L <38 [facility] Liver Profileon 05-26-2025 Albumin [Mass/Vol] 3.9 g/dL Normal 3.5-5.0 [facility] Comment on above: Performed By: #### L 500.3400, L501.9520, L501.94919, L506.0400 #### [facility] [address] [place] [place], [address] ALK PHOS 59 U/L Normal 40-129 [facility] Comment on above: Performed By: #### L 500.3400, L501.9520, L501.70315, L506.0400 #### [facility] [address] [place], [address] ALT [Catalytic activity/Vol] 24 U/L Normal <=46 [facility] Comment on above: Performed By: #### L 500.3400, L501.9520, L501.82485, L506.0400 #### [facility] [address] [place], [address] AST [Catalytic activity/Vol] 20 U/L Normal <=37 [facility] Comment on above: Performed By: #### L 500.3400, L501.9520, L501.79860, L506.0400 #### [facility] [address] [place], [address] Bilirubin [Mass/Vol] 0.92 mg/dL Normal 0.00-1.30 [facility] Comment on above: Performed By: #### L 500.3400, L501.9520, L501.19125, L506.0400 #### [facility] [address] [place], [address] Bilirubin.direct [Mass/Vol] 0.32 mg/dL High 0.00-0.30 [facility] Comment on above: Performed By: #### L 500.3400, L501.9520, L501.00227, L506.0400 #### [facility] [address] [place], [address] Globulin (S) [Mass/Vol] 2.6 g/dL Normal 2.2-4.2 [facility] Comment on above: Performed By: #### L 500.3400, L501.9520, L501.32188, L506.0400 #### [facility] [address] [place], [address] T PROT 6.5 g/dL Normal 5.9-8.4 [facility] Comment on above: Performed By: #### L 500.3400, L501.9520, L501.29760, L506.0400 #### [facility] [address] [place], [address] Serum globulin measurementOr dered By: Fernando Garcia on 05-26-2025 Globulin (S) [Mass/Vol] 2.6 g/dL 2.2-4.2 [facility] Serum or plasma alanine cali otransferase (ALT) measurementOrdered By: Fernando Garcia on 05-26-2025 ALT [Catalytic activity/Vol] 24 U/L <47 [facility] Serum or plasma albumin franck urement (mass/volume)Ordered By: Fernando Garcia on 05-26-2025 Albumin [Mass/Vol] 3.9 g/dL 3.5-5.0 [facility] Serum or plasma alkaline kristen sphatase measurementOrdered By: Fernando Garcia on 05-26-2025 ALP [Catalytic activity/Vol] 59 U/L 40-129 [facility] T4 Free Directon 05-26-2025 T4 FREE DIRECT 1.00 ng/dL Normal 0.76-1.46 [facility] Comment on above: Performed By: #### L 500.3400, L501.9520, L501.86862, L506.0400 #### [facility] [address] [place], [address] T4 freeOrdered By: Fernando campbell on 05-26-2025 Free T4 [Mass/Vol] 1.00 ng/dL 0.76-1.46 [facility] TSH DL <= 0.005 mIU/L QnOrde red By: Fernando Garcia on 05-26-2025 TSH Qn 1.660 uIU/mL 0.300-4.200 [facility] Thyroid Stim Hormone (TSH)on 05-26-2025 TSH 1.660 uIU/mL Normal 0.300-4.200 [facility] Comment on above: Performed By: #### L 500.3400, L501.9520, L501.60855, L506.0400 #### [facility] [address] [place], [address] Total proteinOrdered By: Wilson Garcia on 05-26-2025 Protein [Mass/Vol] 6.5 g/dL 5.9-8.4 [facility] Office Visiton 05-21-2025 Follow-up visit [id number] Jorgito Fraga 1965 M Date Provider Department Center 05/21/2025 FERNANDO XAVIER [facility] END None Family History Problem Relation Age [...] Father's Sister Mother's Brother Alive Level of Service:79392 MD OFFICE/OUTPATIENT ESTABLISHED MOD MDM 30 MIN Reason for Visit and Comments: Graves' Disease [141] Follow-up [047508] Normal [facility] Progress Noteon 05-21-2025 Progress Note . Visit [...] Size: Large adult) Pulse 66 Ht 6' 2" (1.88 m) Wt (!) 336 lb 12.8 [...] as well (more content not included)... Normal [facility] Pulmonary Visit Reporton Pulmonary Visit Report [facility] of [address] [place] [address] OFFICE VISIT Date of Service: 04/13/25 MR#: [id number] Acct: [id number] Name: FLAKITOJORGITO A Rep #: [id number] 1 : 1965 Provider: KIET Tinsley Age/Sex: 59/M Location: [facility] Status: Signed Assessment and Plan Assessment and [...] loss. Plan This note was generated with Dragon dictation software. It may contain incorrect words, [...] also feels as though the pressure is "a little bit too high". He is not requiring naps and is [...] Reasons: 1 Y FU Chief Complaint: CARMEN Graphics Editor Required: No DME Vendor: Rashida Accompanied by: [...] you fallen in the past year?: Yes [facility] Medical History Atrial fibrillation History of pneumonia History of sepsis Hypersomnia, unspecified Nicotine dependence Patent foramen ovale Morbid (severe) obesity due to excess calories Hyperthyroidism Paroxysmal atrial fibrillation Surgical History History of left heart catheterization (0 (more content not included)... [facility] 3602-08-2025 36 PC to patient's spouse and gave information, will follow up with PCP for other recommendations and will touch base with names of products if she finds any others [facility] 36 Pt's spouse lvm she received your vm but was able to get all of the information. Pt's spouse is asking for a call back [facility] 36 Pt spouse calling to check status of pt taking restful sleep supplement [place] [address]on 02-02-2025 36 Pt's spouse calling regarding "restful sleep" all natural sleep medication. Pt's spouse is asking if this will be ok for pt to take the medication [facility] 36on 12-22-2024 36 Reviewed labs, will discuss at next visit [facility] CBC W/Diff, Automatedon - Absolute Lymph 2.66 X10 3/uL Normal 0.83-4.51 [facility] Comment on above: Performed By: #### L 100.0100, L501.17245, L500.4050, L506.0400, L501.9520 ####[facility] [address] [place], [address] Absolute Neut 5.9 X10 3/uL Normal 2.0-7.7 [facility] Comment on above: Performed By: #### L 100.0100, L501.93708, L500.4050, L506.0400, L501.9520 ####[facility] [address] [place], [address] Basophils/100 WBC (Bld) 0.9 % Normal 0-1 [facility] Comment on above: Performed By: #### L 100.0100, L501.79065, L500.4050, L506.0400, L501.9520 ####[facility] [address] [place], [address] Eosinophils/100 WBC (Bld) 1.5 % Normal 0-5 [facility] Comment on above: Performed By: #### L 100.0100, L501.60429, L500.4050, L506.0400, L501.9520 ####[facility] [address] [place], [address] Erythrocyte distribution width (RBC) [Ratio] 12.9 % Normal 11.6-14.6 [facility] Comment on above: Performed By: #### L 100.0100, L501.39101, L500.4050, L506.0400, L501.9520 ####[facility] [address] [place], [address] Hematocrit (Bld) [Volume fraction] 43.7 % Normal 40-54 [facility] Comment on above: Performed By: #### L 100.0100, L501.12671, L500.4050, L506.0400, L501.9520 ####[facility] [address] [place], [address] Hemoglobin (Bld) [Mass/Vol] 14.8 g/dL Normal 13.0-16.5 [facility] Comment on above: Performed By: #### L 100.0100, L501.14392, L500.4050, L506.0400, L501.9520 ####[facility] [address] [place], [address] IG% 0.200 Normal 0.0-0.9 [facility] Comment on above: Result Comment: IG% - Immature Granulocytes (promyelocytes, myelocytes and metamyelocytes) > 1% indicates that a LEFT SHIFT is Present. Performed By: #### L 100.0100, L501.51274, L500.4050, L506.0400, L501.9520 ####[facility] [address] [place], [address] Lymphocytes/100 WBC (Bld) 28.4 % Normal 19-41 [facility] Comment on above: Performed By: #### L 100.0100, L501.59557, L500.4050, L506.0400, L501.9520 ####[facility] [address] [place], [address] MCH (RBC) [Entitic mass] 28.5 pg Normal 27.0-32.0 [facility] Comment on above: Performed By: #### L 100.0100, L501.70686, L500.4050, L506.0400, L501.9520 ####[facility] [address] [place], [address] MCHC (RBC) [Mass/Vol] 33.9 g/dL Normal 32-36 [facility] Comment on above: Performed By: #### L 100.0100, L501.95925, L500.4050, L506.0400, L501.9520 ####[facility] [address] [place], [address] MCV (RBC) [Entitic vol] 84.2 fL Normal 80-94 [facility] Comment on above: Performed By: #### L 100.0100, L501.04773, L500.4050, L506.0400, L501.9520 ####[facility] [address] [place], [address] Monocytes/100 WBC (Bld) 5.9 % Normal 0-10 [facility] Comment on above: Performed By: #### L 100.0100, L501.63876, L500.4050, L506.0400, L501.9520 ####[facility] [address] [place], [address] Neutrophils/100 WBC (Bld) 63.1 % Normal 47-70 [facility] Comment on above: Performed By: #### L 100.0100, L501.72586, L500.4050, L506.0400, L501.9520 ####[facility] [address] [place], [address] Nucleated RBC (Bld) [#/Vol] 0 10*3/uL Normal 0-5 [facility] Comment on above: Performed By: #### L 100.0100, L501.89124, L500.4050, L506.0400, L501.9520 ####[facility] [address] [place], [address] Platelet mean volume (Bld) [Entitic vol] 9.0 fL Normal 6.2-12.0 [facility] Comment on above: Performed By: #### L 100.0100, L501.83767, L500.4050, L506.0400, L501.9520 ####[facility] [address] [place], [address] Platelets (Bld) [#/Vol] 310 10*3/uL Normal 150-450 [facility] Comment on above: Performed By: #### L 100.0100, L501.13826, L500.4050, L506.0400, L501.9520 ####[facility] [address] [place], [address] RBC (Bld) [#/Vol] 5.19 10*6/uL Normal 4.6-6.2 [facility] Comment on above: Performed By: #### L 100.0100, L501.44010, L500.4050, L506.0400, L501.9520 ####[facility] [address] [place], [address] RDW SD 39.5 fl Normal 35.1-43.9 [facility] Comment on above: Performed By: #### L 100.0100, L501.46876, L500.4050, L506.0400, L501.9520 ####[facility] [address] [place], [address] WBC (Bld) [#/Vol] 9.4 10*3/uL Normal 4.4-11.0 [facility] Comment on above: Performed By: #### L 100.0100, L501.33307, L500.4050, L506.0400, L501.9520 ####[facility] [address] [place], [address] [facility] 12-12-2024 Albumin [Mass/Vol] 3.8 g/dL Normal 3.2-5.0 [facility] Comment on above: Performed By: #### L 100.0100, L501.53666, L500.4050, L506.0400, L501.9520 ####[facility] [address] [place], [address] Albumin/Globulin [Mass ratio] 1.2 {ratio} Normal 0.9-2.4 [facility] Comment on above: Performed By: #### L 100.0100, L501.49564, L500.4050, L506.0400, L501.9520 ####[facility] [address] [place], [address] ALK P 58 U/L Normal 45-117 [facility] Comment on above: Performed By: #### L 100.0100, L501.07232, L500.4050, L506.0400, L501.9520 ####[facility] [address] [place], [address] ALT [Catalytic activity/Vol] 33 U/L Normal 16-61 [facility] Comment on above: Performed By: #### L 100.0100, L501.23317, L500.4050, L506.0400, L501.9520 ####[facility] [address] [place], [address] AST [Catalytic activity/Vol] 15 U/L Normal 15-37 [facility] Comment on above: Performed By: #### L 100.0100, L501.41448, L500.4050, L506.0400, L501.9520 ####[facility] [address] [place], [address] Bilirubin [Mass/Vol] 1.10 mg/dL High 0.20-1.00 [facility] Comment on above: Result Comment: For patients on eltrombopag therapy, use of Dimension [place] TBIL is not recommended. Performed By: #### L 100.0100, L501.65651, L500.4050, L506.0400, L501.9520 ####[facility] [address] [place], [address] BUN/CRE 12.1 RATIO Normal 10-20 [facility] Comment on above: Performed By: #### L 100.0100, L501.93274, L500.4050, L506.0400, L501.9520 ####[facility] [address] [place], [address] CA,Total 9.0 mg/dL Normal 8.5-10.1 [facility] Comment on above: Performed By: #### L 100.0100, L501.74829, L500.4050, L506.0400, L501.9520 ####[facility] [address] [place], [address] Chloride [Moles/Vol] 105 mmol/L Normal 98-107 [facility] Comment on above: Performed By: #### L 100.0100, L501.23945, L500.4050, L506.0400, L501.9520 ####[facility] [address] [place], [address] CO2 [Moles/Vol] 25.0 mmol/L Normal 21.0-32.0 [facility] Comment on above: Performed By: #### L 100.0100, L501.13110, L500.4050, L506.0400, L501.9520 ####[facility] [address] [place], [address] Creatinine [Mass/Vol] 0.83 mg/dL Normal 0.70-1.30 [facility] Comment on above: Result Comment: The validity of the calculated GFR GFRAA in patients over 70 years has not been determined. Clinical correlation is essential. Performed By: #### L 100.0100, L501.11648, L500.4050, L506.0400, L501.9520 ####[facility] [address] [place], [address] EST GFR - AA 123 mL/min Normal >60 [facility] Comment on above: Result Comment: Afri can [place] GFR Calc Performed By: #### L 100.0100, L501.77069, L500.4050, L506.0400, L501.9520 ####[facility] [address] [place], [address] GAP 6 Normal 5-15 [facility] Comment on above: Performed By: #### L 100.0100, L501.70421, L500.4050, L506.0400, L501.9520 ####[facility] [address] [place], [address] GFR/1.73 sq M.predicted among non-blacks MDRD (S/P/Bld) [Vol rate/Area] 102 mL/min/{1.73_m2} Normal >60 [facility] Comment on above: Result Comment: Non- GFR Calc Performed By: #### L 100.0100, L501.72654, L500.4050, L506.0400, L501.9520 ####[facility] [address] [place], [address] Globulin (S) [Mass/Vol] 3.3 g/dL Normal 2.2-4.2 [facility] Comment on above: Performed By: #### L 100.0100, L501.69837, L500.4050, L506.0400, L501.9520 ####[facility] [address] [place], [address] Glucose [Mass/Vol] 95 mg/dL Normal 74-106 [facility] Comment on above: Performed By: #### L 100.0100, L501.99043, L500.4050, L506.0400, L501.9520 ####[facility] [address] [place], [address] Potassium [Moles/Vol] 4.2 mmol/L Normal 3.5-5.1 [facility] Comment on above: Performed By: #### L 100.0100, L501.04826, L500.4050, L506.0400, L501.9520 ####[facility] [address] [place], [address] Sodium [Moles/Vol] 136 mmol/L Normal 136-145 [facility] Comment on above: Performed By: #### L 100.0100, L501.74801, L500.4050, L506.0400, L501.9520 ####[facility] [address] [place], [address] T PROT 7.1 g/dL Normal 6.4-8.2 [facility] Comment on above: Performed By: #### L 100.0100, L501.94683, L500.4050, L506.0400, L501.9520 ####[facility] [address] [place], [address] Urea nitrogen [Mass/Vol] 10 mg/dL Normal 7-18 [facility] Comment on above: Performed By: #### L 100.0100, L501.18176, L500.4050, L506.0400, L501.9520 ####[facility] [address] [place], [address] Free T3on 12-12-2024 Free T3 [Mass/Vol] 2.6 pg/mL Normal 2.18-3.98 [facility] Comment on above: Performed By: #### L 100.0100, L501.63586, L500.4050, L506.0400, L501.9520 ####[facility] [address] [place], [address] T4 Free Directon 12-12-2024 T4 FREE DIRECT 1.04 ng/dL Normal 0.76-1.46 [facility] Comment on above: Performed By: #### L 100.0100, L501.92985, L500.4050, L506.0400, L501.9520 ####[facility] [address] [place], [address] Thyroid Stim Hormone (TSH)on 12-12-2024 TSH 2.890 uIU/mL Normal 0.358-3.740 [facility] Comment on above: Performed By: #### L 100.0100, L501.25702, L500.4050, L506.0400, L501.9520 ####[facility] [address] [place], [place], [address] Office Visiton 12-08-2024 Follow-up visit [id number] Jorgito Fraga 1965 M Date Provider Department Center 12/08/2024 13666-XQOZPAADXJEANETTE CALERO [facility]SAR SHM[facility] [address] Ar Family [...] Father's Sister Mother's Brother Alive Level of Service:71404 MD OFFICE/OUTPATIENT ESTABLISHED MOD MDM 30 MIN Reason for Visit and Comments: Follow-up [244184] Normal [facility] Progress Noteon 12-08-2024 Progress Note [facility]ARD[facility] - [address] [address] Dept: [phone] Dept Visit type: Established : 1965 Reason [...] CARDIAC ELECTROPHYSIOLOGY PROCEDURE N/A 12/02/2023 Performed by Nickie Gerber MD at [facility] Cardiac Cath/EP Lab CARDIAC ELECTROPHYSIOLOGY PROCEDURE N/A 12/02/2023 Performed by Nickie Gerber MD at [facility] Cardiac Cath/EP Lab CARDIAC PROCEDURE 03/06/2019 [...] (!) 335 lb (152 kg) Height: 6' 2" (1.88 m) Physical Exam Vitals reviewed. Constitutional: General: He is not in acute distress. Appearance: Normal appearance. H (more content not included)... Normal [facility] Progress Note Continue CPAP nightly. Normal [facility] Progress Note S/p CTI ablation wit h no recurrence. Normal [facility] Progress Note Last monitor showed a 14% [...] and we can discuss redo ablation. Normal [facility] 36on 11-06-2024 36 Patient scheduled with BEE 12-08-24. Normal [facility] 36 LVM informing shalom moon of test results, marguerite please reach out and schedule follow up appointment. Normal [facility] 36 ----- Message from FRANCHESCA Portillo CNP sent at 11/06/2024 8:07 AM EST ----- Please let patient know stress test looked ok, not the best images but no clear evidence of ischemia. He is overdue for follow up, please schedule appt with me, on Tikosyn. Normal [facility] No Panel InformationOrdered By: Cipriano Kebede on 11-03-2024 Angina Index 0 [facility] [employer] Work Phone: Ao Root Index 1.26 cm/m2 [facility] Work Phone: Aortic Root 3.3 cm [facility] [employer] Work Phone: Aortic Sinus Valsalva 3.3 cm [facility] Work Phone: Aortic Sinus Valsalva Index 1.26 cm/m2 [facility] [employer] Work Phone: Ascending Aorta 3.7 cm [facility] Work Phone: Ascending Aorta Index 1.42 cm/m2 [facility] Work Phone: [phone] Baseline Diastolic BP 80 mmHg [facility] Work Phone: [phone] Baseline HR 67 bpm [facility] Work Phone: [phone] Depression 0 mm [facility] Work Phone: [phone] Baseline Systolic BP 147 mmHg [facility] Work Phone: [phone] Estrada Treadmill Score 6 [facility] Work Phone: [phone] EF BP 50 % Abnormal 55 - 100 % [facility] [employer] Work Phone: Exercise Duration Seconds 26 sec [facility] [employer] Work Phone: Exercise Duration Time 6 min [facility] [facility] [employer] Work Phone: Interpretation and review of laboratory results Abnormal [facility] [employer] Work Phone: LV EDV A2C 238 mL [facility] [employer] Work Phone: LV EDV A4C 279 mL [facility] [employer] Work Phone: LV EDV BP 259 mL Abnormal 67 - 155 mL [facility] [employer] Work Phone: LV EDV Index A2C 91 mL/m2 [facility] Work Phone: LV EDV Index A4C 107 mL/m2 [facility] Work Phone: LV EDV Index BP 99 mL/m2 [facility] Work Phone: LV Ejection Fraction A2C 40 % [facility] [employer] Work Phone: LV Ejection Fraction A4C 53 % [facility] [employer] Work Phone: LV ESV A2C 142 mL [facility] [employer] Work Phone: LV ESV A4C 131 mL [facility] [employer] Work Phone: LV ESV BP 138 mL Abnormal 22 - 58 mL [facility] [employer] Work Phone: LV ESV Index A2C 54 mL/m2 [facility] Work Phone: LV ESV Index A4C 50 mL/m2 [facility] Work Phone: LV ESV Index BP 53 mL/m2 [facility] Work Phone: LVOT Area 4.2 cm2 [facility] Work Phone: [phone] LVOT Diameter 2.3 cm [facility] Work Phone: Recovery Stage 1 Duration 1 min:sec [facility] Work Phone: Recovery Stage 1 HR 103 bpm [facility] Work Phone: Recovery Stage 2 BP 146/99 mmHg [facility] Work Phone: Recovery Stage 2 Duration 2 min:sec [facility] Work Phone: Recovery Stage 2 HR 184 bpm [facility] Work Phone: Recovery Stage 3 BP 161/82 mmHg [facility] Work Phone: Recovery Stage 3 Duration 4 min:sec [facility] Work Phone: Recovery Stage 3 HR 87 bpm [facility] Work Phone: Recovery Stage 4 BP 152/75 mmHg [facility] Work Phone: Recovery Stage 4 Duration 6 min:sec [facility] Work Phone: Recovery Stage 4 HR 84 bpm [facility] Work Phone: Sinotubular Junction 2.9 cm [facility] Work Phone: Stress Diastolic BP 80 mmHg [facility] Work Phone: Stress Estimated Workload 7.3 METS [facility] Work Phone: Stress Peak HR 131 bpm [facility] Work Phone: Stress Percent HR Achieved 80 % [facility] Work Phone: Stress Rate Pressure Product 12570 bpm*mmHg [facility] Work Phone: [phone] Depression 0 mm [facility] Work Phone: Stress Stage 1 BP 150/82 mmHg [facility] Work Phone: Stress Stage 1 Duration 3 min:sec [facility] Work Phone: [phone] Stress Stage 1 HR 106 bpm [facility] Work Phone: [phone] Stress Stage 2 BP 160/80 mmHg [facility] Work Phone: Stress Stage 2 Duration 6 min:sec [facility] Work Phone: Stress Stage 2 HR 126 bpm [facility] Work Phone: Stress Stage 3 Duration 6:26 min:sec [facility] Work Phone: Stress Stage 3 HR 131 bpm [facility] Work Phone: Stress Systolic BP 160 mmHg [facility] Work Phone: Stress Target HR 163 bpm [facility] Work Phone: [facility] Work Phone: [phone] No Panel Informationon 11-03 Study Impression: Probably [...] 11-03-2024 Oxygen saturation in Blood 98 % [employer] Phone: Oxygen saturation in Blood 97 % [employer] Phone: Electrophysiology studyon Successful ablation for atrial fibrillation [...] A transseptal access was performed using a Yaphie[employer] needle assembly and sheath was advanced into [...] were used for hemostasis. CV CPACS HEMO [facility] [employer] No Panel Informationon 12-02 Interpretation and review of laboratory results Abnormal [facility] [employer] POCT ACT 302 [facility] Performed by: [facility], [address] [place] [address] CLIA ID: [id number] [facility] [employer] [facility] Interpretation and review of laboratory results Abnormal [facility] [employer] POCT ACT 296 [facility] Performed by: [facility], [address] [place] [address] CLIA ID: [id number] [facility] Interpretation and review of laboratory results Abnormal [facility] [employer] POCT ACT 228 [facility] Performed by: [facility], [address] [place] [address] CLIA ID: [id number] [facility] Interpretation and review of laboratory results Abnormal [facility] [employer] POCT ACT 182 [facility] Performed by: [facility], [address] [place] [address] CLIA ID: [id number] [facility] Absolute lymphocyte countOrd ered By: Curry Banda on 11-17-2023 Lymphocytes Auto (Unsp spec) [#/Vol] 2.73 10*3/uL 0.83-4.51 [facility] Basophil percentageOrdered B y: Curry Banda on 11-17-2023 Basophils/100 WBC (Bld) 0.6 % 0-1 [facility] Bilirubin [Mass/Vol] 1.10 mg/dL 0.20-1.00 [facility] Comment on above: For patients on eltr ombopag therapy, use of Dimension [place] TBIL is not recommended. Chloride [Moles/Vol] 106 mmol/L 98-107 [facility] Cholesterol [Mass/Vol] 145 mg/dL <200 [facility] Comment on above: <200 mg/dL Desirable 200-240 mg/dL Borderline >240 mg/dL High Risk Eosinophils/100 WBC (Bld) 1.2 % 0-5 [facility] Glucose [Mass/Vol] 208 mg/dL 74-106 [facility] Comment on above: Glucose result great er than or equal to 200 mg/dLsuggests DIABETES MELLITUS per A.D.A. criteria. Neutrophils (Bld) [#/Vol] 3.8 10*3/uL 2.0-7.7 [facility] Neutrophils/100 WBC (Bld) 54.9 % 47-70 [facility] Potassium [Moles/Vol] 4.3 mmol/L 3.5-5.1 [facility] Protein [Mass/Vol] 6.9 g/dL 6.4-8.2 [facility] Sodium [Moles/Vol] 139 mmol/L 136-145 [facility] Triglyceride [Mass/Vol] 115 mg/dL <199 [facility] Comment on above: The drugs N-Acetylcy steine and Metamizole may falsely depress this assay.Serum Triglycerides Reference Interval Normal <150 mg/dL Borderline high 150 - 199 mg/dL High 200 - 499 mg/dL Very High > or = 500 mg/dL WBC (Bld) [#/Vol] 6.9 10*3/uL 4.4-11.0 [facility] Blood erythrocytes count (nu mber/volume)Ordered By: Curry Banda on 11-17-2023 RBC (Bld) [#/Vol] 5.45 10*6/uL 4.6-6.2 [facility] Blood hemoglobin measurement (mass/volume)Ordered By: Curry Banda on 11-17-2023 Hemoglobin (Bld) [Mass/Vol] 16.0 g/dL 13.0-16.5 [facility] Blood lymphocytes/100 leukoc ytesOrdered By: Curry Banda on 11-17-2023 Lymphocytes/100 WBC (Bld) 39.7 % 19-41 [facility] Blood monocytes/100 leukocyt esOrdered By: Curry Banda on 11-17-2023 Monocytes/100 WBC (Bld) 3.2 % 0-10 [facility] Blood platelet mean volumeOr dered By: Curry Banda on 11-17-2023 Platelet mean volume (Bld) [Entitic vol] 9.2 fL 6.2-12.0 [facility] Determination of erythrocyte mean corpuscular volume (MCV)Ordered By: Curry Banda on 11-17-2023 MCV (RBC) [Entitic vol] 85.5 fL 80-94 [facility] Hematocrit Auto (Bld) [Volum e fraction]Ordered By: Curry Banda on 11-17-2023 Hematocrit (Bld) [Volume fraction] 46.6 % 40-54 [facility] INR in Blood by Coagulation assayOrdered By: Curry Banda on 11-17-2023 INR Coag (Bld) [Relative time] 1.1 {INR} [facility] Laboratory - Chemistry and C hemistry - challengeOrdered By: Curry Banda on 11-17-2023 ALP [Catalytic activity/Vol] 59 U/L 45-117 [facility] ALT [Catalytic activity/Vol] 60 U/L 16-61 [facility] CO2 [Moles/Vol] 24.0 mmol/L 21.0-32.0 [facility] Globulin (S) [Mass/Vol] 3.5 g/dL 2.2-4.2 [facility] Urea nitrogen/Creatinine [Mass ratio] 12.8 mg/mg 10-20 [facility] Laboratory - CoagulationOrde red By: Curry Banda on 11-17-2023 aPTT Coag (Bld) [Time] 32.9 s 24.1-36.2 [facility] PT Coag (PPP) [Time] 14.2 s 11.7-14.9 [facility] Laboratory - Hematology and Cell countsOrdered By: Curry Banda on 11-17-2023 Erythrocyte distribution width (RBC) [Entitic vol] 39.5 fL 35.1-43.9 [facility] Erythrocyte distribution width (RBC) [Ratio] 12.7 % 11.6-14.6 [facility] Immature granulocytes/100 WBC (Bld) 0.400 % 0.0-0.9 [facility] Comment on above: IG% - Immature Granu locytes (promyelocytes, myelocytes and metamyelocytes) > 1% indicates that a LEFT SHIFT is Present. MCH (RBC) [Entitic mass] 29.4 pg 27.0-32.0 [facility] Nucleated RBC/100 WBC (Bld) [Ratio] 0 % 0-5 [facility] MCHC Auto (RBC) [Mass/Vol]Or dered By: Curry Banda on 11-17-2023 MCHC (RBC) [Mass/Vol] 34.3 g/dL 32-36 [facility] No Panel InformationOrdered By: Curry Banda on 11-17-2023 Estimated GFR (MDRD) Amer 119 mL/min >60 [facility] Comment on above: GFR Calc Estimated GFR (MDRD) Non-Af Amer 98 mL/min >60 [facility] Comment on above: Non- GFR Calc Thyroid Stimulating Hormone (TSH) 2.00 uIU/mL 0.358-3.74 [facility] Platelets bldOrdered By: Daksha Banda on 11-17-2023 Platelets (Bld) [#/Vol] 258 10*3/uL 150-450 [facility] Serum or plasma albumin franck urement (mass/volume)Ordered By: Curry Banda on 11-17-2023 Albumin [Mass/Vol] 3.4 g/dL 3.2-5.0 [facility] Serum or plasma albumin/glob ulin mass ratioOrdered By: Curry Banda on 11-17-2023 Albumin/Globulin [Mass ratio] 1.0 {ratio} 0.9-2.4 [facility] Serum or plasma calcium franck urement (mass/volume)Ordered By: Curry Banda on 11-17-2023 Calcium [Mass/Vol] 8.5 mg/dL 8.5-10.1 [facility] Serum or plasma cholesterol in HDL measurement (mass/volume)Ordered By: Curry Banda on 11-17-2023 Cholesterol in HDL [Mass/Vol] 25 mg/dL >40 [facility] Comment on above: The drugs N-Acetylcy steine and Metamizole may falsely depress this assay. Reference Range HDL <40 mg/dL Low HDL Cholesterol HDL >or= 60 mg/dL High HDL Cholesterol Serum or plasma cholesterol in VLDL measurement (mass/volume)Ordered By: Curry Banda on 11-17-2023 Cholesterol in VLDL [Mass/Vol] 23 mg/dL 5-40 [facility] Serum or plasma creatinine m easurement (mass/volume)Ordered By: Curry Banda on 11-17-2023 Creatinine [Mass/Vol] 0.86 mg/dL 0.70-1.30 [facility] Comment on above: The validity of the calculated GFR & GFRAA in patients over 70 years has not been determined. Clinical correlation is essential. Serum or plasma low density lipoprotein (LDL) cholesterol measurement (mass/volume)Ordered By: Curry Banda on 11-17-2023 Cholesterol in LDL [Mass/Vol] 97 mg/dL 0-130 [facility] Serum or plasma urea nitroge n measurement (mass/volume)Ordered By: Curry Banda on 11-17-2023 Urea nitrogen [Mass/Vol] 11 mg/dL 7-18 [facility] Thin prep Papanicolaou smear with manual screeningOrdered By: Curry Badna on 11-17-2023 Thin prep Papanicolaou smear with manual screening 29 U/L 15-37 [facility] Thin prep Papanicolaou smear with manual screening 9 5-15 [facility] Laboratory - Chemistry and C hemistry - challengeon 09-24-2023 Free T4 [Mass/Vol] 0.93 ng/dL 0.76-1.46 [facility] No Panel Informationon 09-24 Free Triiodothyronine (T3) pg/dL 2.8 pg/mL 2.18-3.98 [facility] Miscellaneous Test See comment [facility] Comment on above: TEST RESULTS LIMITST SH Receptor Antibody (TBII) <0.3 U/LReference Range:Antibody Titer:<1.0 U/L = Negative1.1 - 1.5 U/L = Equivocal>1.5 U/L = Positive TESTING PERFORMED AT [facility]. ORIGINAL REPORT ON FILE IN LAB CONTAINS ADDITIONAL TEST SITE INFORMATION. Thyroid Stimulating Hormone (TSH) 3.02 uIU/mL 0.358-3.74 [facility] Thyroid stimulating immunogl obulins detectionon 09-24-2023 Thyroid stimulating immunoglobulins Ql (S) <0.10 IU/L 0.00-0.55 [facility] Comment on above: Performed at: - [address] [id number] Director: Ronnie Lieberman MD, Phone: [phone] Laboratory - Chemistry and C hemistry - challengeon 05-24-2023 Free T4 [Mass/Vol] 0.90 ng/dL 0.76-1.46 [facility] No Panel Informationon 05-24 Free Triiodothyronine (T3) pg/dL 2.7 pg/mL 2.18-3.98 [facility] Miscellaneous Test See comment [facility] Comment on above: TEST RESULT LIMITSTS H Receptor Antibody (TBII) <0.3 U/L Reference Range: Antibody Titer: <1.0 U/L = Negative 1.1 - 1.5 U/L = Equivocal >1.5 U/L = Positive ___ TESTING PERFORMED AT [facility]. ORIGINAL REPORT ON FILE IN LAB CONTAINS ADDITIONAL TEST SITE INFORMATION. Thyroid Stimulating Hormone (TSH) 2.28 uIU/mL 0.358-3.74 [facility] Thyroid stimulating immunogl obulins detectionon 05-24-2023 Thyroid stimulating immunoglobulins Ql (S) <0.10 IU/L 0.00-0.55 [facility] Comment on above: Performed at: - [address] [id number] Director: Ronnie Lieberman MD, Phone: [phone] Basophil percentageon 2021 Chloride [Moles/Vol] 106 mmol/L 98-107 [facility] Work Phone: Glucose [Mass/Vol] 92 mg/dL 74-106 [facility] Work Phone: Potassium [Moles/Vol] 3.9 mmol/L 3.5-5.1 [facility] Work Phone: Comment on above: Moderate Hemolysis, Result may be falsely increased. Sodium [Moles/Vol] 139 mmol/L 136-145 [facility] Work Phone: Laboratory - Chemistry and C hemistry - challengeon 07-22-2022 CO2 [Moles/Vol] 28.0 mmol/L 21.0-32.0 [facility] Work Phone: Urea nitrogen/Creatinine [Mass ratio] 16.3 mg/mg 10-20 [facility] Work Phone: No Panel Informationon 07-22 Estimated GFR (MDRD) Amer 130 mL/min >60 [facility] Work Phone: Comment on above: GFR Calc Estimated GFR (MDRD) Non-Af Amer 107 mL/min >60 [facility] Work Phone: Comment on above: Non- GFR Calc Serum or plasma calcium franck urement (mass/volume)on 07-22-2022 Calcium [Mass/Vol] 9.2 mg/dL 8.5-10.1 [facility] Work Phone: Serum or plasma creatinine m easurement (mass/volume)on 07-22-2022 Creatinine [Mass/Vol] 0.80 mg/dL 0.70-1.30 [facility] Work Phone: Comment on above: The validity of the calculated GFR & GFRAA in patients over 70 years has not been determined. Clinical correlation is essential. Serum or plasma urea nitroge n measurement (mass/volume)on 07-22-2022 Urea nitrogen [Mass/Vol] 13 mg/dL 7-18 [facility] Work Phone: Thin prep Papanicolaou smear with manual screeningon 07-22-2022 Thin prep Papanicolaou smear with manual screening 5 5-15 [facility] Work Phone: Routine EKG Treadmill Stress Teston 06-20-2021 Routine EKG Treadmill Stress Test Patient Name: JORGITO FRAGA Ultrasound ACCESSION EXAM DATE/TIME PROCEDURE ORDERING PROVIDER [id number] 06/20/2021 15:28 EDT Routine EKG Treadmill MD BANDA JASON KANE Stress Test Reason For Exam (Routine EKG Treadmill Stress Test) Chest pain Report EXERCISE ECG STRESS TEST Demetri Protocol PATIENT: Jorgito Fraga STUDY DATE: 06/20/2021 [facility]#: [id number] : 1965 AGE: 55 HT/WT: 188 cm (74 150 kg (330 in) lb) GENDER: M BP: 139 / 78 LOCATION: [address] STATUS: *ORDERING PHYSICIAN: * Feliberto Banda *SUPERVISING PHYSICIAN: * Detxer Mcknight MD *RN: * Bella Lomeli *READING [...] peak heart rate and blood pressure was [address]03 mm Hg/min. Functional capacity is average. Peak [...] Signed by: MD MCKNIGHT KENNETH D Normal [facility] Echo 2D Doppler Coloron 10-0 TRANSTHORACIC ECHOCARDIOGRAM PATIENT: Jorgito Fraga STUDY DATE: 08/30/2019 : 1965 AGE: 53 HT/WT: 188 cm (74 136.1 kg in) (299.4 lb) GENDER: M BP: 147 / 88 LOCATION: [facility] PATIENT [facility]patient [facility] STATUS: *ORDERING PHYSICIAN: * Mallorie Ambrosio *READING PHYSICIAN: Liliana Garza, LilianaFOOD ORDER DELIVERY RUNNER: * Kristen Reeves MD RDCS, AE -------- [...] Lala Garza MD 08/30/2019 15:15 Prior Signatures: [employer] [facility]- [place], [place] [facility], [facility] Incoming Cardiology Results From [employer] - 08/30/2019 3:15 PM EDT TRANSTHORACIC ECHOCARDIOGRAM PATIENT: Jorgito Fraga STUDY DATE: 08/30/2019 : 1965 AGE: 53 HT/WT: 188 cm (74 136.1 kg in) (299.4 lb) GENDER: M BP: 147 / 88 LOCATION: [facility] PATIENT Outpatient [facility] Center STATUS: *ORDERING PHYSICIAN: * Mallorie Ambrosio *READING PHYSICIAN: * Kayla, *FOOD ORDER DELIVERY RUNNER: Liliana Reeves MD [facility], AE -------- INDICATIONS: Non-ischemic cardiomyopathy (I42.8). Tachycardia [...] Lala Garza MD 08/30/2019 15:15 Prior Signatures: [place], [place] Basic Metabolic Panelon 08-0 Anion gap [Moles/Vol] 10 mmol/L [place], [place] Calcium [Mass/Vol] 9.4 mg/dL 8.4 - 10. 4 mg/dL [place] Chloride [Moles/Vol] 102 mmol/L 98 - 10 7 mmol/L [place] CO2 [Moles/Vol] 27 mmol/L 22 - 30 mmol/L [place] Creatinine [Mass/Vol] 0.59 mg/dL 0.52 - 1.25 mg/dL [place] EGFR IF NonAfrican Mosotho >60.0 >60 mL/min [place] Comment on above: Source- MDRD equatio n with creatinine calibration to IDMS(NKDEP) eGFR not recommended for drug dose adjustment GFR/1.73 sq M predicted among blacks MDRD (S/P/Bld) [Vol rate/Area] mL/min/{1.73_m2} >60 mL/min [place] Glucose [Mass/Vol] 97 mg/dL 70 - 100 mg/dL [place] Potassium [Moles/Vol] 4.3 mmol/L 3.5 - 5.1 mmol/L [place] Sodium [Moles/Vol] 139 mmol/L 135 - 145 mmol/L [place] Urea nitrogen [Mass/Vol] 14 mg/dL 7 - 20 mg/dL [place] EKG 12 Leadon 06-30-2019 [facility], [facility] Incoming Cardiology Results From [facility] - 06/30/2019 8:55 AM EDT [facility] Test Date: 2019-06-29 Pat Name: Jorgito Fraga Department: 27 Room: 1438 Gender: M Assistant Production Editor: SANDEEP : 1965 Requested By: Order Number: [id number] Reading MD: Jose Milligan Measurements Intervals [place] Rate: 76 P: 54 MD: 173 QRS: -1 QRSD: 101 T: -5 QT: 411 QTc: 463 Interpretive Statements Sinus rhythm Abnormal R-wave progression, early transition Borderline T abnormalities, inferior leads Compared to ECG 06/29/2019 14:07:39 Sinus bradycardia no longer present T-wave abnormality still present Electronically Signed On 06-30-2019 8:53:55 EDT by Jose Milligan [facility], [facility] Test Date: 2019-06-29 Pat Name: Jorgito Fraga Department: 27 Room: 1438 Gender: M Assistant Production Editor: SANDEEP : 1965 Requested By: Order Number: [id number] Reading MD: Jose Milligan Measurements Intervals [place] Rate: 76 P: 54 MD: 173 QRS: -1 QRSD: 101 T: -5 QT: 411 QTc: 463 Interpretive Statements Sinus rhythm Abnormal R-wave progression, early transition Borderline T abnormalities, inferior leads Compared to ECG 06/29/2019 14:07:39 Sinus bradycardia no longer present T-wave abnormality still present Electronically Signed On 06-30-2019 8:53:55 EDT by [employer], ALISSA [facility] Test Date: 2019-06-29 Pat Name: Jorgito Fraga Department: 1A4 Room: 1438 Gender: M Assistant Production Editor: JESSIKA LUTZB: 1965 Requested By: Order Number: [id number] Reading MD: Jose Srini Measurements Intervals [place] Rate: 56 P: -10 MD: 200 QRS: -7 QRSD: 101 T: -16 QT: 441 QTc: 426 Interpretive Statements Sinus bradycardia Borderline T abnormalities, inferior leads Compared to ECG 06/29/2019 11:00:13 Atrial fibrillation no longer present T-wave abnormality still present Electronically Signed On 06-30-2019 8:50:46 EDT by Gluster Loopster, [facility], [employer] Incoming Cardiology Results From [facility] - 06/30/2019 8:51 AM EDT [employer] Test Date: 2019-06-29 Pat Name: Jorgito Fraga Department: 1A4 Room: [facility] Gender: M Assistant Production Editor: JESSIKA : 1965 Requested By: Order Number: [id number] Reading MD: Jose Srini Measurements Intervals [place] Rate: 56 P: -10 MD: 200 QRS: -7 QRSD: 101 T: -16 QT: 441 QTc: 426 Interpretive Statements Sinus bradycardia Borderline T abnormalities, inferior leads Compared to ECG 06/29/2019 11:00:13 Atrial fibrillation no longer present T-wave abnormality still present Electronically Signed On 06-30-2019 8:50:46 EDT by Gluster Loopster, [facility], [facility] Incoming Cardiology Results From [facility] - 06/30/2019 8:48 AM EDT [employer] Test Date: 2019-06-29 Pat Name: Jorgito Fraga Department: 1A4W Room: 1438 Gender: M Assistant Production Editor: JESSIKA : 1965 Requested By: Order Number: [id number] Reading MD: Jose Srini Measurements Intervals [place] Rate: 92 P: MD: QRS: -2 QRSD: 100 T: -13 QT: 403 QTc: 499 Interpretive Statements Atrial fibrillation Abnormal R-wave progression, early transition Borderline T abnormalities, inferior leads Borderline prolonged QT interval Compared to ECG 06/28/2019 23:02:04 No significant changes Electronically Signed On 06-30-2019 8:47:13 EDT by Jose Srini [facility] Test Date: 2019-06-29 Pat Name: Jorgito Fraga Department: 1A4W Room: 1438 Gender: M Assistant Production Editor: JESSIKA : 1965 Requested By: Order Number: [id number] Reading MD: Jose Milligan Measurements Intervals [place] Rate: 92 P: MD: QRS: -2 QRSD: 100 T: -13 QT: 403 QTc: 499 Interpretive Statements Atrial fibrillation Abnormal R-wave progression, early transition Borderline T abnormalities, inferior leads Borderline prolonged QT interval Compared to ECG 06/28/2019 23:02:04 No significant changes Electronically Signed On 06-30-2019 8:47:13 EDT by Jose [place] Magnesiumon 06-30-2019 Magnesium [Mass/Vol] 1.9 mg/dL 1.6 - 2 .3 mg/dL [place] Otheron 06-30-2019 Test Performed by [facility], [address] [place] [id number] [place], [place] Basic Metabolic Panelon Anion gap [Moles/Vol] 10 mmol/L [place], [place] Calcium [Mass/Vol] 9.4 mg/dL 8.4 - 10. 4 mg/dL [place] Chloride [Moles/Vol] 103 mmol/L 98 - 10 7 mmol/L [place] CO2 [Moles/Vol] 26 mmol/L 22 - 30 mmol/L [place] Creatinine [Mass/Vol] 0.59 mg/dL 0.52 - 1.25 mg/dL [place] EGFR IF NonAfrican [place] >60.0 >60 mL/min [place] Comment on above: Source- MDRD equatio n with creatinine calibration to IDMS(NKDEP) eGFR not recommended for drug dose adjustment GFR/1.73 sq M predicted among blacks MDRD (S/P/Bld) [Vol rate/Area] mL/min/{1.73_m2} >60 mL/min [place] Glucose [Mass/Vol] 110 mg/dL High 70 - 100 mg/dL [place] Interpretation and review of laboratory results Abnormal [place] Potassium [Moles/Vol] 4.4 mmol/L 3.5 - 5.1 mmol/L [place] Sodium [Moles/Vol] 139 mmol/L 135 - 145 mmol/L [place] Urea nitrogen [Mass/Vol] 17 mg/dL 7 - 20 mg/dL [place] CARDIOLOGY REPORTon 06-29-20 19 Feliberto Banda M D - 06/29/2019 3:45 PM EDT [facility] CARDIOVASCULAR [place] PATIENT: JORGITO FRAGA MEDICAL RECORD#: [id number] DATE [...] cardioversion from atrial fibrillation to sinus rhythm. Disk[employer] Job ID: [id number] Feliberto Banda MD DOD: 06/29/2019 01:22 P RADHA/stephanie DOT: 06/29/2019 03:45 P Job Number: [id number] Document Number: [id number] cc: Feliberto Banda MD [address] [facility] [address] [place] EKG 12 [place] 06-29-2019 [facility] Test Date: 2019-06-28 Pat Name: Jorgito Flakito Department: 1A4W Room: 1438 Gender: M Assistant Production Editor: PAUL : 1965 Requested By: Order Number: [id number] Reading : Frankie Cerda Measurements Intervals [place] Rate: 93 P: MD: QRS: -4 QRSD: 98 T: -21 QT: 384 QTc: 478 Interpretive Statements Atrial fibrillation Borderline T abnormalities, inferior leads Borderline prolonged QT interval Electronically Signed On 06-29-2019 20:30:44 EDT by [facility], [facility] Incoming Cardiology Results From [facility] - 06/29/2019 8:31 PM EDT [facility] Test Date: 2019-06-28 Pat Name: Jorgito Fraga Department: 1A4W Room: 1438 Gender: M Assistant Production Editor: PAUL : 1965 Requested By: Order Number: [id number] Reading : Frankie Cerda Measurements Intervals [place] Rate: 93 P: MD: QRS: -4 QRSD: 98 T: -21 QT: 384 QTc: 478 Interpretive Statements Atrial fibrillation Borderline T abnormalities, inferior leads Borderline prolonged QT interval Electronically Signed On 06-29-2019 20:30:44 EDT by [facility], [facility] Incoming Cardiology Results From [facility] - 06/29/2019 8:19 PM EDT [facility] Test Date: 2019-06-28 Pat Name: Jorgito Fraga Department: 1A4W Room: 1438 Gender: M Assistant Production Editor: COOPER : 1965 Requested By: Order Number: [id number] Reading : Frankie Cerda Measurements Intervals [place] Rate: 97 P: MD: QRS: 6 QRSD: 100 T: -12 QT: 394 QTc: 501 Interpretive Statements Atrial fibrillation Prolonged QT interval Electronically Signed On 06-29-2019 20:18:56 EDT by [facility] Test Date: 2019-06-28 Pat Name: Jorgito Fraga Department: 1A4W Room: 1438 Gender: M Assistant Production Editor: COOPER : 1965 Requested By: Order Number: [id number] Kayode MD: Frankie Cerda Measurements Intervals [place] Rate: 97 P: MD: QRS: 6 QRSD: 100 T: -12 QT: 394 QTc: 501 Interpretive Statements Atrial fibrillation Prolonged QT interval Electronically Signed On 06-29-2019 20:18:56 EDT by Frankie Cerda [place] Magnesiumon 06-29-2019 Magnesium [Mass/Vol] 1.9 mg/dL 1.6 - 2 .3 mg/dL [place] Otheron 06-29-2019 Test Performed by [id number] [place] [address] Basic Metabolic Panelon Anion gap [Moles/Vol] 9 mmol/L [place] Calcium [Mass/Vol] 9.3 mg/dL 8.4 - 10. 4 mg/dL [place] Chloride [Moles/Vol] 104 mmol/L 98 - 10 7 mmol/L [place] CO2 [Moles/Vol] 25 mmol/L 22 - 30 mmol/L [place] Creatinine [Mass/Vol] 0.65 mg/dL 0.52 - 1.25 mg/dL [place] EGFR IF NonAfrican [place]otho >60.0 >60 mL/min [place] Comment on above: Source- MDRD equatio n with creatinine calibration to IDMS(NKDEP) eGFR not recommended for drug dose adjustment GFR/1.73 sq M predicted among blacks MDRD (S/P/Bld) [Vol rate/Area] mL/min/{1.73_m2} >60 mL/min [place] Glucose [Mass/Vol] 106 mg/dL High 70 - 100 mg/dL [place] Interpretation and review of laboratory results Abnormal [place] Potassium [Moles/Vol] 4.4 mmol/L 3.5 - 5.1 mmol/L [place] Sodium [Moles/Vol] 138 mmol/L 135 - 145 mmol/L [place] Urea nitrogen [Mass/Vol] 17 mg/dL 7 - 20 mg/dL [place] EKG 12 [place] 06-28-2019 [facility] Test Date: 2019-06-27 Pat Name: Jorgito Fraga Department: 1A4W Room: 1438 Gender: M Assistant Production Editor: YB : 1965 Requested By: Order Number: [id number] Reading : Miguel Ansari Measurements Intervals [place] Rate: 102 P: MD: QRS: -5 QRSD: 100 T: -17 QT: 380 QTc: 496 Interpretive Statements Atrial fibrillation Borderline T abnormalities, inferior leads Electronically Signed On 06-28-2019 12:55:17 EDT [facility] [place] [facility] 06/28/2019 12:56 PM EDT [facility] Test Date: 2019-06-27 Pat Name: Jorgito Fraga Department: 1A4 Room: 1438 Gender: M Assistant Production Editor: YB : 1965 Requested By: Order Number: [id number] Reading HARVINDER Ansari Measurements Intervals [place] Rate: 102 P: MD: QRS: -5 QRSD: 100 T: -17 QT: 380 QTc: 496 Interpretive Statements Atrial fibrillation Borderline T abnormalities, inferior leads Electronically Signed On 06-28-2019 12:55:17 EDT by [place] EKG 12 leadon 06-28-2019 Darrell, [facility] Incoming Cardiology Results From [facility] - 06/28/2019 5:41 PM EDT [facility] Test Date: 2019-06-27 Pat Name: Jorgito Fraga Department: 1A4 Room: 1438 Gender: M Assistant Production Editor: [place] : 1965 Requested By: Order Number: [id number] Reading : Miguel Ansari Measurements Intervals [place] Rate: 98 P: MD: QRS: -6 QRSD: 96 T: -15 QT: 351 QTc: 449 Interpretive Statements Atrial fibrillation Borderline T abnormalities, inferior leads Electronically Signed On 06-28-2019 17:40:31 EDT by Miguel [facility] Test Date: 2019-06-27 Pat Name: Jorgito Fraga Department: 1A4W Room: 1438 Gender: M Assistant Production Editor: ANNA : 1965 Requested By: Order Number: [id number] Reading MD: Miguel Ansari Measurements Intervals [place] Rate: 98 P: MD: QRS: -6 QRSD: 96 T: -15 QT: 351 QTc: 449 Interpretive Statements Atrial fibrillation Borderline T abnormalities, inferior leads Electronically Signed On 06-28-2019 17:40:31 EDT by Miguel Ansari [place] Magnesiumon 06-28-2019 Magnesium [Mass/Vol] 1.9 mg/dL 1.6 - 2 .3 mg/dL [place] Otheron 06-28-2019 Test Performed by [facility], [address] [place] [address] [place] Basic Metabolic Panelon Anion gap [Moles/Vol] 11 mmol/L [place] Calcium [Mass/Vol] 9.4 mg/dL 8.4 - 10. 4 mg/dL [place] Chloride [Moles/Vol] 102 mmol/L 98 - 10 7 mmol/L [place] CO2 [Moles/Vol] 27 mmol/L 22 - 30 mmol/L [place] Creatinine [Mass/Vol] 0.92 mg/dL 0.52 - 1.25 mg/dL [place] EGFR IF NonAfrican [place] >60.0 >60 mL/min [place] Comment on above: Source- MDRD equatio n with creatinine calibration to IDMS(NKDEP) eGFR not recommended for drug dose adjustment GFR/1.73 sq M predicted among blacks MDRD (S/P/Bld) [Vol rate/Area] mL/min/{1.73_m2} >60 mL/min [place] Glucose [Mass/Vol] 86 mg/dL 70 - 100 mg/dL [place] Potassium [Moles/Vol] 4.4 mmol/L 3.5 - 5.1 mmol/L [place] Sodium [Moles/Vol] 140 mmol/L 135 - 145 mmol/L [place] Urea nitrogen [Mass/Vol] 16 mg/dL 7 - 20 mg/dL [place] CBCon 06-27-2019 Erythrocyte distribution width (RBC) [Ratio] 14.0 % 11.5 - 14.5 % [place] Hematocrit (Bld) [Volume fraction] 40.7 % 40 - 52 % [place] Hemoglobin (Bld) [Mass/Vol] 14.2 g/dL 13 - 18 g/dL [place] Interpretation and review of laboratory results Abnormal [place] MCH (RBC) [Entitic mass] 30.0 pg 26 - 34 pg [place] MCHC (RBC) [Mass/Vol] 34.8 % 32 - 36 % [place] MCV (RBC) [Entitic vol] 86.4 fL 80 - 98 fL [place] Platelet mean volume (Bld) [Entitic vol] 7.4 fL 7.4 - 10.4 fL [place] Platelets (Bld) [#/Vol] 295 10*3/uL 140 - 440 10*3/uL [place] RBC (Bld) [#/Vol] 4.71 10*6/uL 4.4 - 5.9 10*6/uL [place] WBC (Bld) [#/Vol] 12.1 10*3/uL High 3.6 - 10.7 10*3/uL [place] Test Performed by [address] [address] [place] Magnesiumon 06-27-2019 Magnesium [Mass/Vol] 2.0 mg/dL 1.6 - 2 .3 mg/dL [place] Otheron 06-27-2019 Test Performed by [address] [address] [place] TSH without Reflexon 019 TSH Qn 4.454 u[IU]/mL 0.465 - 4.68 u[IU]/mL [facility] [place] [place] Test Performed by [address] [address] [facility], [place] Vital Signs Date Time Vital Sign Value Performing Clinician Med david 08-10-2025 08:57-0400 Body mass index (BMI) [Ratio] 43.1 kg/m2 Dr. Curry Banda MD Work Phone: [facility] 08-10-2025 08:57-0400 Body temperature 95.6 [degF] Dr. Curry Banda MD Work Phone: [facility] 08-10-2025 08:57-0400 Body weight 152.[address] Curry Banda MD Work Phone: [facility] 08-10-2025 08:57-0400 Diastolic blood pressure 67 mm[Hg] Dr. Curry Banda MD Work Phone: [facility] 08-10-2025 08:57-0400 Heart rate 73 /min Dr. Curry Banda MD Work Phone: [facility] 08-10-2025 08:57-0400 Respiratory rate 20 /min Dr. Curry Banda MD Work Phone: [facility] 08-10-2025 08:57-0400 SaO2% (BldA) [Mass fraction] 96 % Dr. Curry Banda MD Work Phone: [facility] 08-10-2025 08:57-0400 Systolic blood pressure 131 mm[Hg] Dr. Curry Banda MD Work Phone: [facility] 07-13-2025 15:02-0400 Body height 186.7 cm Meet Jt COLEY Work Phone: [facility] 07-13-2025 15:02-0400 Body mass index (BMI) [Ratio] 43.91 kg/m2 Meet Jt COLEY Work Phone: [facility] 07-13-2025 15:02-0400 Body weight 153.04 kg Meet Jt COLEY Work Phone: [facility] 07-13-2025 15:02-0400 Diastolic blood pressure 64 mm[Hg] Meet Jt COLEY Work Phone: [facility] 07-13-2025 15:02-0400 Heart rate 68 /min Meet Jt COLEY Work Phone: [facility] 07-13-2025 15:02-0400 SaO2% (BldA) [Mass fraction] 96 % Meet Jt COLEY Work Phone: [facility] 07-13-2025 15:02-0400 Systolic blood pressure 106 mm[Hg] Meet Jt COLEY Work Phone: [facility] 05-21-2025 14:56-0400 Body height 188 cm Fernando Garcia MD Work Phone: [facility] 05-21-2025 14:56-0400 Body mass index (BMI) [Ratio] 43.24 kg/m2 Fernando Garcia MD Work Phone: [facility] 05-21-2025 14:56-0400 Body weight 152.77 kg Fernando Garcia MD Work Phone: [facility] 05-21-2025 14:56-0400 Diastolic blood pressure 85 mm[Hg] Fernando Garcia MD Work Phone: [facility] 05-21-2025 14:56-0400 Heart rate 66 /min Fernando Garcia MD Work Phone: [facility] 05-21-2025 14:56-0400 Systolic blood pressure 132 mm[Hg] Fernando Garcia MD Work Phone: [facility] 04-13-2025 08:33-0400 Body height 187.[address] Curry Banda MD Work Phone: [facility] 04-13-2025 08:33-0400 Body mass index (BMI) [Ratio] 43 kg/m2 Dr. Curry Banda MD Work Phone: [facility] 04-13-2025 08:33-0400 Body temperature 97.4 [degF] Dr. Curry Banda MD Work Phone: [facility] 04-13-2025 08:33-0400 Body weight 151.[address] Curry Banda MD Work Phone: [facility] 04-13-2025 08:33-0400 Diastolic blood pressure 79 mm[Hg] Dr. Curry Banda MD Work Phone: [facility] 04-13-2025 08:33-0400 Heart rate 98 /min Dr. Curry Banda MD Work Phone: [facility] 04-13-2025 08:33-0400 Respiratory rate 18 /min Dr. Curry Banda MD Work Phone: [facility] 04-13-2025 08:33-0400 SaO2% (BldA) [Mass fraction] 99 % Dr. Curry Banda MD Work Phone: [facility] 04-13-2025 08:33-0400 Systolic blood pressure 164 mm[Hg] Dr. Curry Banda MD Work Phone: [facility] 12-08-2024 14:45-0500 Body height 188 cm Jeanette ROBINS RN - VOCATIONAL EVALUATOR Work Phone: [facility] 12-08-2024 14:45-0500 Body mass index (BMI) [Ratio] 43.01 kg/m2 Jeanette Dixon TILE POWER SHEAR OPERATOR - VOCATIONAL EVALUATOR Work Phone: [facility] 12-08-2024 14:45-0500 Body weight 151.96 kg Jeanette ROBINS RN - VOCATIONAL EVALUATOR Work Phone: [facility] 12-08-2024 14:45-0500 Diastolic blood pressure 72 mm[Hg] Jeanette Dixon TILE POWER SHEAR OPERATOR - VOCATIONAL EVALUATOR Work Phone: [facility] 12-08-2024 14:45-0500 Heart rate 65 /min Jeanette ROBINS RN - VOCATIONAL EVALUATOR Work Phone: [facility] 12-08-2024 14:45-0500 SaO2% (BldA) [Mass fraction] 94 % Jeanette Dixon TILE POWER SHEAR OPERATOR - VOCATIONAL EVALUATOR Work Phone: [facility] [employer] 12-08-2024 14:45-0500 Systolic blood pressure 120 mm[Hg] Jeanette Dixon TILE POWER SHEAR OPERATOR - VOCATIONAL EVALUATOR Work Phone: [facility] [employer] 05-16-2024 16:02-0400 Body height 188 cm Leann Bernadr MD Work Phone: [facility] [employer] 05-16-2024 16:02-0400 Body mass index (BMI) [Ratio] 44.68 kg/m2 Leann Bernard MD Work Phone: [facility] [employer] 05-16-2024 16:02-0400 Body weight 157.85 kg Leann Bernard MD Work Phone: [facility] [employer] 05-16-2024 16:02-0400 Diastolic blood pressure 68 mm[Hg] Leann Bernard MD Work Phone: [facility] [employer] 05-16-2024 16:02-0400 Heart rate 78 /min Leann Bernard MD Work Phone: [facility] [employer] 05-16-2024 16:02-0400 Systolic blood pressure 112 mm[Hg] Leann Bernard MD Work Phone: [facility] [employer] 03-03-2024 15:19-0400 Body height 188 cm Meet Jt COLEY Work Phone: [facility] [employer] 03-03-2024 15:19-0400 Body mass index (BMI) [Ratio] 44.04 kg/m2 Meet Jt COLEY Work Phone: [facility] [employer] 03-03-2024 15:19-0400 Body weight 155.58 kg Meet Jt COLEY Work Phone: [facility] [employer] 03-03-2024 15:19-0400 Diastolic blood pressure 78 mm[Hg] Meet Jt COLEY Work Phone: [facility] [employer] 03-03-2024 15:19-0400 Heart rate 67 /min Meet Jt COLEY Work Phone: [facility] [employer] 03-03-2024 15:19-0400 SaO2% (BldA) [Mass fraction] 95 % Meet Jt COLEY Work Phone: [facility] [employer] 03-03-2024 15:19-0400 Systolic blood pressure 128 mm[Hg] Meet Jt COLEY Work Phone: [facility] [employer] 12-20-2023 12:51-0500 Body mass index (BMI) [Ratio] 44.17 kg/m2 Jeanette Dixon TILE POWER SHEAR OPERATOR - VOCATIONAL EVALUATOR Work Phone: [facility] [employer] 12-20-2023 12:51-0500 Body weight 156.04 kg Jeanette Dixon AP RN - VOCATIONAL EVALUATOR Work Phone: [facility] [employer] 12-20-2023 12:51-0500 Diastolic blood pressure 80 mm[Hg] Jeanette Dixon TILE POWER SHEAR OPERATOR - VOCATIONAL EVALUATOR Work Phone: [facility] [employer] 12-20-2023 12:51-0500 Heart rate 67 /min Jeanette Dixon AP RN - VOCATIONAL EVALUATOR Work Phone: [facility] [employer] 12-20-2023 12:51-0500 SaO2% (BldA) [Mass fraction] 95 % Jeanette Dixon TILE POWER SHEAR OPERATOR - VOCATIONAL EVALUATOR Work Phone: [facility] [employer] 12-20-2023 12:51-0500 Systolic blood pressure 110 mm[Hg] Jeanette Dixon TILE POWER SHEAR OPERATOR - VOCATIONAL EVALUATOR Work Phone: [facility] [employer] 12-02-2023 13:33-0500 Diastolic blood pressure 68 mm[Hg] Meet Jt COLEY Work Phone: [facility] [employer] 12-02-2023 13:33-0500 Heart rate 70 /min Meet Jt COLEY Work Phone: [facility] [employer] 12-02-2023 13:33-0500 SaO2% (BldA) [Mass fraction] 98 % Meet Jt COLEY Work Phone: [facility] [employer] 12-02-2023 13:33-0500 Systolic blood pressure 104 mm[Hg] Meet Jt COLEY Work Phone: [facility] [employer] 12-02-2023 13:00-0500 Respiratory rate 18 /min Meet Jt COLEY Work Phone: [facility] [employer] 12-02-2023 11:05-0500 Body temperature 97 [degF] Meet Jt COLEY Work Phone: [facility] [employer] 12-02-2023 07:45-0500 Body height 188 cm Meet Jt COLEY Work Phone: [facility] [employer] 12-02-2023 07:45-0500 Body mass index (BMI) [Ratio] 44.44 kg/m2 Meet Jt COLEY Work Phone: [facility] [employer] 12-02-2023 07:45-0500 Body weight 157 kg Meet Jt COLEY Work Phone: [facility] [employer] 10-28-2023 15:30-0500 Body height 188 cm Leann Bernard MD Work Phone: [facility] [employer] 10-28-2023 15:30-0500 Body mass index (BMI) [Ratio] 44.55 kg/m2 Leann Bernard MD Work Phone: [facility] [employer] 10-28-2023 15:30-0500 Body weight 157.4 kg Leann Bernard MD Work Phone: [facility] [employer] 10-28-2023 15:30-0500 Diastolic blood pressure 74 mm[Hg] Leann Bernard MD Work Phone: [facility] [employer] 10-28-2023 15:30-0500 Heart rate 67 /min Leann Bernard MD Work Phone: [facility] [employer] 10-28-2023 15:30-0500 Systolic blood pressure 126 mm[Hg] Leann Bernard MD Work Phone: [facility] [employer] 10-22-2023 13:15-0500 Body height 188 cm Meet Jt COLEY Work Phone: [facility] [employer] 10-22-2023 13:15-0500 Body mass index (BMI) [Ratio] 44.32 kg/m2 Meet Jt COLEY Work Phone: [facility] [employer] 10-22-2023 13:15-0500 Body weight 156.58 kg Meet Jt COLEY Work Phone: [facility] [employer] 10-22-2023 13:15-0500 Diastolic blood pressure 78 mm[Hg] Meet Jt COLEY Work Phone: [facility] [employer] 10-22-2023 13:15-0500 Heart rate 68 /min Meet Jt COLEY Work Phone: [facility] [employer] 10-22-2023 13:15-0500 SaO2% (BldA) [Mass fraction] 93 % Meet Jt COLEY Work Phone: [facility] [employer] 10-22-2023 13:15-0500 Systolic blood pressure 130 mm[Hg] Meet Jt COLEY Work Phone: [facility] [employer] 06-28-2023 08:20-0400 Body height 188 cm Feliberto Banda MD Work Phone: [facility] [employer] 06-28-2023 08:20-0400 Body mass index (BMI) [Ratio] 43.78 kg/m2 Feliberto Banda MD Work Phone: [facility] [employer] 06-28-2023 08:20-0400 Body weight 154.68 kg Feliberto Banda MD Work Phone: [facility] [employer] 06-28-2023 08:20-0400 Diastolic blood pressure 80 mm[Hg] Feliberto Banda MD Work Phone: [facility] [employer] 06-28-2023 08:20-0400 Heart rate 62 /min Feliberto Banda MD Work Phone: [facility] [employer] 06-28-2023 08:20-0400 SaO2% (BldA) [Mass fraction] 99 % Feliberto Banda MD Work Phone: [facility] [employer] 06-28-2023 08:20-0400 Systolic blood pressure 136 mm[Hg] Feliberto Banda MD Work Phone: [facility] [employer] 06-30-2019 11:32-0400 Body Temperature 97.59 [degF] Feliberto Banda [facility], [place] 06-30-2019 11:32-0400 BP Diastolic 93 mm[Hg] Feliberto Banda [facility] [place] 06-30-2019 11:32-0400 BP Systolic 144 mm[Hg] Feliberto Banda [place] 06-30-2019 11:32-0400 Pulse (Heart Rate) 75 /min Feliberto B[place] 06-30-2019 11:32-0400 Pulse Oximetry 97 % Feliberto Banda [place] 06-30-2019 11:32-0400 Respiratory Rate 20 /min Feliberto Banda [facility] [place] 06-27-2019 19:06-0400 BMI (Body Mass Index) 41.65 kg/m2 Feliberto B[place] 06-27-2019 19:06-0400 Body weight 147.15 kg Feliberto Banda [place] 06-27-2019 19:06-0400 Height 188 cm Feliberto Banda [place] Encounters Encounter Date Encounter Type Care Provider Facility Start: 10-22-2025 [facility]ulatory [facility] Start: 10-03-2025 ambulatory Curry [place] Facility:[facility] Start: 10-03-2025 [facility]counter [facility] other [facility] Start: 09-26-2025 End: 09-26-2025 ambulatory [facility] Start: 09-26-2025 End: 09-26-2025 ambulatory Abhay Fletcher Facility:[facility] Start: 09-25-2025 End: 09-25-2025 Telephone encounter Fernando Garcia MD Work Phone[facility] Start: 09-12-2025 End: 09-13-2025 Telephone encounter Nickie Gerber MD Work Phone: [facility] [place] Comment on above: Cardiac Clearance Start: 08-10-2025 End: 08-10-2025 Patient encounter procedure Paulina Tinsley MANAGER TECHNICAL-C -[facility] Work Phone: Start: 08-10-2025 End: 08-10-[address] Curry Banda MD Work Phone: [facility] Start: 07-13-2025 End: 07-13-2025 Office outpatient visit 15 minutes Meet Олег Gerber MD Work Phone: [facility] Comment on above: Paroxysmal atrial fi brillation (HCC) (Primary Dx); Typical atrial flutter (HCC) Start: 07-13-2025 End: 07-13-2025 ambulatory MEET [facility] Start: 07-07-2025 End: 07-07-[address] Curry Banda MD Work Phone: -Laboratory Start: 07-07-2025 End: 07-07-[address] Curry Banda MD -Laboratory Work Phone: Start: 07-07-2025 End: 07-07-2025 ambulatory Curry Banda Facility:[facility] Start: 06-25-2025 End: 06-25-2025 Refill Leann Bernard MD Work Phone: [facility] Comment on above: Graves disease Start: 06-11-2025 End: 06-11-2025 Refill Jeanette Dixon TILE POWER SHEAR OPERATOR - VOCATIONAL EVALUATOR Work Phone: [facility] Cardiology [facility] Start: 05-31-2025 Encounter for genera l adult medical examination without abnormal findings Fernando Garcia [facility] Start: 05-26-2025 End: 05-26-[address] Curry Banda MD Work Phone: -Laboratory Start: 05-26-2025 End: 05-26-[address] Fernando Garcia MD -Laboratory Work Phone: Start: 05-26-2025 End: 05-26-2025 ambulatory Curry Banda Facility:[facility] Start: 05-21-2025 End: 05-21-2025 Office outpatient visit 25 minutes Fernando Garcia MD Work Phone: [facility] Comment on above: Graves disease (Prim simon Dx) Start: 05-21-2025 End: 05-21-2025 ambulatory FERNANDO GARCIA [facility] Start: 04-13-2025 End: 04-13-2025 Patient encounter procedure Paulina Tinsley MANAGER TECHNICAL-C -[facility] Work Phone: Start: 04-13-2025 End: 04-13-2025 ambulatory Paulina Tinsley [facility] [facility] Start: 02-02-2025 End: 02-02-2025 Telephone encounter Feliberto Banda MD Work Phone: [facility] Comment on above: Advice Only Start: 12-21-2024 End: 12-21-2024 Telephone encounter Shannon Aguila TILE POWER SHEAR OPERATOR - VOCATIONAL EVALUATOR Work Phone: [facility] [place] Comment on above: Labs Only Start: 12-12-2024 End: 12-12-2024 ambulatory ALEKS SEYMOURSTEVE Facility:[facility] Start: 12-08-2024 End: 12-08-2024 Office outpatient visit 25 minutes Jeanette Dixon TILE POWER SHEAR OPERATOR - VOCATIONAL EVALUATOR Work Phone: [facility] Comment on above: Obstructive sleep ap jyoti (Primary Dx); Paroxysmal atrial fibrillation (HCC); Typical atrial flutter (HCC) Start: 12-08-2024 End: 12-08-2024 ambulatory JEANETTE DIXON [facility] Start: 11-06-2024 End: 11-06-2024 Telephone encounter Nickie Gerber MD Work Phone: [facility] [place] Start: 11-03-2024 End: 11-03-2024 ambulatory JEANETTE DESTINY [facility] Start: 11-03-2024 End: 11-03-2024 Subsequent hospital visit by physician Jeanette Dixon TILE POWER SHEAR OPERATOR - VOCATIONAL EVALUATOR Work Phone: [facility] [address] [facility] Comment on above: Other chest pain Typical atrial flutt er (HCC) Start: 09-14-2024 End: 09-14-2024 Orders Only Jeanette Dixon TILE POWER SHEAR OPERATOR - VOCATIONAL EVALUATOR Work Phone: [facility] [place] Comment on above: Other chest pain (Pr imary Dx) Start: 09-12-2024 End: 09-14-2024 Telephone encounter Meet Олег Gerber MD Work Phone: [facility] Central Scheduling Comment on above: Other (Scheduling/) Start: 06-27-2024 End: 06-27-2024 Refill Leann Bernard MD Work Phone: [facility] Comment on above: Graves disease (Prim simon Dx) Start: 06-08-2024 End: 06-15-2024 Telephone encounter Leann Bernard MD Work Phone: [facility] Comment on above: Request For Order(s) Start: 05-16-2024 End: 05-16-2024 Office outpatient visit 15 minutes Leann Bernard MD Work Phone: [facility] Comment on above: Graves disease (Prim simon Dx) Start: 03-16-2024 Refill Jeanette collins TILE POWER SHEAR OPERATOR - VOCATIONAL EVALUATOR Work Phone: [facility] Start: 03-08-2024 Telephone encounter Meet Олег banda MD Work Phone: [facility] Comment on above: Cancelled Appointmen t Start: 03-03-2024 End: 03-03-2024 Office outpatient visit 25 minutes Meet Олег Gerber MD Work Phone: [facility] Comment on above: Paroxysmal atrial fi brillation (HCC) (Primary Dx); Typical atrial flutter (HCC) Start: 12-20-2023 End: 12-20-2023 Office outpatient visit 25 minutes Jeanette Dixon TILE POWER SHEAR OPERATOR - VOCATIONAL EVALUATOR Work Phone: [facility] Comment on above: Paroxysmal atrial fi brillation (HCC) (Primary Dx); Typical atrial flutter (HCC) Start: 12-10-2023 Telephone encounter Meet Олег banda MD Work Phone: [facility] Comment on above: Med Management (Eliq uis ) Start: 12-02-2023 End: 12-02-2023 Subsequent hospital visit by physician Meet Олег Gerber MD Work Phone: [facility] Comment on above: Paroxysmal atrial fi brillation (HCC); Typical atrial flutter (HCC) Start: 11-29-2023 Refill Meet Олег Pinto Work Phone: [facility] Start: 11-19-2023 End: 11-19-2023 Office outpatient visit 15 minutes Jeanette Woodsugh TILE POWER SHEAR OPERATOR - VOCATIONAL EVALUATOR Work Phone: [facility] Comment on above: Paroxysmal atrial fi brillation (HCC) (Primary Dx); Typical atrial flutter (HCC) Start: 11-19-2023 ambulatory Jeanette Cel[facility]injov[facility] TILE POWER SHEAR OPERATOR - VOCATIONAL EVALUATOR Work Phone: [facility] Start: 11-17-2023 End: 11-17-2023 ambulatory [facility] Work Phone: Start: 11-17-2023 End: 11-17-2023 Patient encounter procedure [facility] Work Phone: Start: 10-28-2023 End: 10-28-2023 Office outpatient visit 15 minutes Leann Bernard MD Work Phone: [facility] Comment on above: Graves disease Start: 10-22-2023 End: 10-22-2023 Office outpatient visit 40 minutes Meet Олег Gerber MD Work Phone: [facility] Comment on above: Paroxysmal atrial fi brillation (HCC) (Primary Dx); Typical atrial flutter (HCC) Start: 09-29-2023 Telephone encounter Leann Bernard MD Work Phone: [facility] Comment on above: thyroid lab results Start: 09-27-2023 Telephone encounter Leann Bernard MD Work Phone: [facility] Comment on above: thy stim immuno resu lt 09/24/23 Start: 09-24-2023 End: 09-24-2023 ambulatory [facility] Work Phone: Start: 09-24-2023 End: 09-24-2023 Patient encounter procedure [facility] Work Phone: Start: 09-20-2023 Telephone encounter Feliberto Banda MD Work Phone: [facility] Comment on above: Lab orders Start: 09-15-2023 Refill Feliberto leslie MD Work Phone: [facility] Start: 06-28-2023 End: 06-28-2023 Office outpatient visit 15 minutes Feliberto Banda MD Work Phone: [facility] Comment on above: Paroxysmal atrial fi brillation (CMS/HCC) (HCC) Start: 06-19-2023 Refill Jeanette Woods ug TILE POWER SHEAR OPERATOR - VOCATIONAL EVALUATOR Work Phone: [facility] Start: 05-24-2023 End: 05-24-2023 ambulatory [facility] Work Phone: Start: 05-24-2023 End: 05-24-2023 Patient encounter procedure [facility] Work Phone: Start: 11-25-2022 Telephone encounter Leann Bernard MD Work Phone: [facility] Comment on above: Med Refill Start: 07-22-2022 End: 07-22-2022 ambulatory [facility] Work Phone: Start: 07-22-2022 End: 07-22-2022 Patient encounter procedure [facility] Start: 08-30-2019 End: 08-30-2019 Subsequent hospital visit by physician Mallorie Ambrosio Work Phone: [facility] Comment on above: Non-ischemic cardiom yopathy (HCC) Start: 06-27-2019 End: 06-30-2019 Evaluation and management of inpatient Feliberto Banda Work Phone: [facility] Procedures Date Procedure Procedure Detail Performing Clinician Start: 09-26-2025 Adult depression scr eening assessment Meet Jt COLEY Work Phone: Start: 07-13-2025 Ecg routine ecg w/le ast 12 lds w/i&r Meet Олег Gerber MD Work Phone: Start: 07-07-2025 Assay of prostate sp ecific antigen total Dr. Curry Banda MD Work Phone: Comment on above: This test was perfor med using the [employer] tPSA method. Measured values of a patient sample can vary depending on the testing procedure used. PSA values determined on patient samples by different testing procedures cannot be used interchangeably. If there is a change in PSA assays while monitoring therapy, sequential testing should be performed to confirm baseline values. Start: 05-26-2025 Thyrotropin [Units/v olume] in Serum or Plasma Jeanette Dixon TILE POWER SHEAR OPERATOR - VOCATIONAL EVALUATOR Work Phone: Start: 12-12-2024 Thyrotropin [Units/v olume] in Serum or Plasma Shannon Aguila TILE POWER SHEAR OPERATOR - VOCATIONAL EVALUATOR Work Phone: Start: 12-08-2024 Ecg routine ecg w/le ast 12 lds trcg only w/o i&r Nickie Gerber MD Work Phone: Start: 11-03-2024 TTE w or w/o contr, cont ECG Jeanette Dixon TILE POWER SHEAR OPERATOR - VOCATIONAL EVALUATOR Work Phone: Start: 03-03-2024 Ecg routine ecg w/le ast 12 lds trcg only w/o i&r Meet Олег Gerber MD Work Phone: Start: 12-20-2023 Ecg routine ecg w/le ast 12 lds trcg only w/o i&r Meet Олег Gerber MD Work Phone: Start: 12-02-2023 Ecg routine ecg w/le ast 12 lds trcg only w/o i&r Jeanette Dixon TILE POWER SHEAR OPERATOR - VOCATIONAL EVALUATOR Work Phone: Start: 12-02-2023 Electrophysiology study Jeanette Dixon TILE POWER SHEAR OPERATOR - VOCATIONAL EVALUATOR Work Phone: Start: 12-02-2023 End: 12-02-2023 POCT ACT Meet Олег Gerber MD Work Phone: Start: 12-02-2023 Ecg routine ecg w/le ast 12 lds trcg only w/o i&r Jeanette Dixon TILE POWER SHEAR OPERATOR - VOCATIONAL EVALUATOR Work Phone: Start: 11-26-2023 Lipid 1996 panel - S amish or Plasma Meet Jt COLEY Work Phone: Start: 11-17-2023 Thyrotropin [Units/v olume] in Serum or Plasma Meet Jt COLEY Work Phone: Start: 10-22-2023 Ecg routine ecg w/le ast 12 lds trcg only w/o i&r Meet Олег Gerber MD Work Phone: Start: 06-28-2023 Ecg routine ecg w/le ast 12 lds trcg only w/o i&r Feliberto Banda MD Work Phone: Start: 05-24-2023 Thyrotropin [Units/v olume] in Serum or Plasma Feliberto Banda MD Work Phone: Start: 08-30-2019 Echo tthrc r-t 2d w/ wom-mode compl spec&colr d Mallorie O'Shell Work Phone: Start: 06-30-2019 Assay of magnesium Yoni on Luly Santos Work Phone: Start: 06-30-2019 Basic metabolic pane l calcium total Chari Washingtonlibiajean pierre Work Phone: Start: 06-29-2019 Ecg routine ecg w/le ast 12 lds w/i&r Feliberto Banda Work Phone: Start: 06-29-2019 Echo transesophag r- t 2d w/prb img acquisj i&r Feliberto Banda Work Phone: Start: 06-29-2019 Ecg routine ecg w/le ast 12 lds w/i&r Chari N Tom Work Phone: Start: 06-29-2019 EP NURSE PROCEDURE REPORT 3m Scanning Start: 06-29-2019 Ecg routine ecg w/le ast 12 lds w/i&r Chari N Magzoran Work Phone: Start: 06-29-2019 Assay of magnesium Yoni on N Magzoran Work Phone: Start: 06-29-2019 Basic metabolic pane l calcium total Chari N Tom Work Phone: Start: 06-28-2019 Ecg routine ecg w/le ast 12 lds w/i&r Chari N Magzoran Work Phone: Start: 06-28-2019 Ecg routine ecg w/le ast 12 lds w/i&r Chari N Tom Work Phone: Start: 06-28-2019 Assay of magnesium Yoni on N Tom Work Phone: Start: 06-28-2019 Basic metabolic pane l calcium total Chari N Tom Work Phone: Start: 06-27-2019 Ecg routine ecg w/le ast 12 lds w/i&r Chari N Magzoran Work Phone: Start: 06-27-2019 Ecg routine ecg w/le ast 12 lds w/i&r Chari N Magzoran Work Phone: Start: 06-27-2019 Assay of magnesium Yoni on N Magzoran Work Phone: Start: 06-27-2019 Assay of thyroid sti mulating hormone tsh Chari N Tom Work Phone: Start: 06-27-2019 Basic metabolic pane l calcium total Chari N Magzoran Work Phone: Start: 06-27-2019 Blood count complete automated Chari N Magooljean pierre Work Phone: Start: 06-27-2019 Thyrotropin [Units/v olume] in Serum or Plasma Leann Bernard MD Work Phone: Plan of Treatment Date Care Activity Detail Author Start: 2042 RSV Immunization for Adults (1 - 1-dose 75+ series) RSV Immunization for Adults (1 - 1-dose 75+ series) [facility] Start: 11-26-2028 Lipid panel Lipid Panel [facility] Start: 2027 RSV Immunization aged 60 or older (1 - 1-dose 60+ series) RSV Immunization aged 60 or older (1 - 1-dose 60+ series) [facility] Start: 09-26-2026 Depression Screening Depression Screening [facility] Start: 05-26-2026 Thyroid stimulating hormone measurement TSH Level [facility] Start: 02-08-2026 End: 02-08-2026 Patient encounter procedure 02/08/2026 3:00 PM EDT Office Visit [facility] [address] [place] [phone] Jeanette Dixon, TILE POWER SHEAR OPERATOR - VOCATIONAL EVALUATOR [address] [address] [facility] Start: 01-04-2026 End: 01-04-2026 Patient encounter procedure 01/04/2026 8:00 AM EST Office Visit [facility] [address] [phone] Shannon Aguila, TILE POWER SHEAR OPERATOR - VOCATIONAL EVALUATOR [address] [place] [address] [facility] Start: 12-24-2025 End: 12-24-2025 Patient encounter procedure 12/24/2025 8:40 AM EST Office Visit [facility] [address] [phone] Fernando Garcia MD [address] [place] [address] (Work) [facility] Start: 12-12-2025 Thyroid stimulating hormone measurement TSH Level [facility] Start: 10-10-2025 End: 10-10-2025 Patient encounter procedure 10/10/2025 10:30 AM EST Appointment [facility] 95 [facility] Cardiology [address] [place] [phone] Destiny Jeanette, TILE POWER SHEAR OPERATOR - VOCATIONAL EVALUATOR [address] [address] [facility] Card[facility] Start: 09-26-2025 End: 09-26-2027 Cardiac holter monitor (24 hours) Cardiac holter monitor (24 hours) [facility] Routine PVC (premature ventricular contraction) Expected: 09/26/2025, Expires: 09/26/2027 [facility] [employer] [facility] Work Phone: Comment on above: Expected: 09/26/2025, Expires: Start: 09-26-2025 End: 09-26-2025 Clinical Support 09/26/2025 9:30 AM EST Clinical Support [facility] [address] [place] [phone] [facility] Start: 07-23-2025 COVID-19 Vaccine ( season) COVID-19 Vaccine ( season) [facility] Start: 07-23-2025 Influenza vaccination [facility] Start: 07-13-2025 End: 07-13-2025 Patient encounter procedure 07/13/2025 3:15 PM EDT Office Visit [facility] [address] [place] [phone] Nickie Gerber MD [address] [place] [address] [facility] Start: 07-13-2025 End: 07-13-2026 Basic metabolic 1998 panel - Serum or Plasma Basic metabolic panel Lab Routine Paroxysmal atrial fibrillation (HCC) Expected: 07/13/2025 (Approximate), Expires: 07/13/2026 [facility] Work Phone: Comment on above: Expected: 07/13/2025 (Approximate), Expi res: 07/13/2026 Start: 05-21-2025 End: 05-21-2025 Patient encounter procedure [facility] Start: 05-21-2025 End: 05-21-2026 Hepatic function 2000 panel - Serum or Plasma Hepatic function panel Lab Routine Graves disease Expected: 05/21/2025 (Approximate), Expires: 05/21/2026 [facility] [employer] Comment on above: Expected: 05/21/2025 (Approximate), Expi res: 05/21/2026 Start: 05-21-2025 End: 05-21-2026 Thyrotropin [Units/volume] in Serum or Plasma TSH Lab Routine Graves disease Expected: 05/21/2025 (Approximate), Expires: 05/21/2026 [facility] [employer] [facility] Work Phone: Comment on above: Expected: 05/21/2025 (Approximate), Expi res: 05/21/2026 Start: 05-21-2025 End: 05-21-2026 Thyroxine (T4) free [Mass/volume] in Serum or Plasma T4, free Lab Routine Graves disease Expected: 05/21/2025 (Approximate), Expires: 05/21/2026 [facility] [employer] Comment on above: Expected: 05/21/2025 (Approximate), Expi res: 05/21/2026 Start: 05-21-2025 End: 05-21-2026 Triiodothyronine (T3) Free [Mass/volume] in Serum or Plasma T3, free Lab Routine Graves disease Expected: 05/21/2025 (Approximate), Expires: 05/21/2026 [facility] [employer] Comment on above: Expected: 05/21/2025 (Approximate), Expi res: 05/21/2026 Start: 12-08-2024 End: 12-08-2024 Patient encounter procedure 12/08/2024 3:30 PM EST Office Visit [facility] - [address] [phone] Jeanette Dixon, FRANCHESCA - VOCATIONAL EVALUATOR [address] [address] [facility] [place] Start: 11-17-2024 Thyroid stimulating hormone measurement TSH Level [facility] [employer] Start: 09-14-2024 End: 09-14-2026 Cardiac holter monitor (8- 15 days) Cardiac holter monitor (8- 15 days) [facility] Cardiac Services Routine Typical atrial flutter (HCC) Expected: 09/14/2024, Expires: 09/14/2026 [facility] [employer] Work Phone: Comment on above: Expected: 09/14/2024, Expires: Start: 09-14-2024 End: 09-14-2026 Stress echocardiogram (TTE) exercise with contrast, bubble, strain, and 3D PRN Stress echocardiogram (TTE) exercise with contrast, bubble, strain, and 3D PRN CV Stress Echocardiography Routine Other chest pain Expected: 09/14/2024 (Approximate), Expires: 09/14/2026 [facility] [employer] Work Phone: Comment on above: Expected: 09/14/2024 (Approximate), Expi res: 09/14/2026 Start: 07-23-2024 COVID-19 Vaccine ( season) COVID-19 Vaccine ( season) [facility] Start: 07-23-2024 Influenza vaccination [facility] Start: 05-24-2024 Thyroid stimulating hormone measurement TSH Level [facility] Start: 05-16-2024 End: 05-16-2024 Patient encounter procedure [facility] Start: 05-16-2024 End: 05-16-2025 Thyrotropin [Units/volume] in Serum or Plasma TSH Lab Routine Graves disease Expected: 05/16/2024 (Approximate), Expires: 05/16/2025 [facility] [employer] Work Phone: Comment on above: Expected: 05/16/2024 (Approximate), Expi res: 05/16/2025 Start: 05-16-2024 End: 05-16-2025 Thyroxine (T4) free [Mass/volume] in Serum or Plasma T4, free Lab Routine Graves disease Expected: 05/16/2024 (Approximate), Expires: 05/16/2025 [facility] [employer] Comment on above: Expected: 05/16/2024 (Approximate), Expi res: 05/16/2025 Start: 05-16-2024 End: 05-16-2025 Triiodothyronine (T3) Free [Mass/volume] in Serum or Plasma T3, free Lab Routine Graves disease Expected: 05/16/2024 (Approximate), Expires: [facility]16[facility] on above: Expected: 05/16/2024 (Approximate), Expi res: 05/16/2025 Start: 04-07-2024 End: 04-07-2024 Patient encounter procedure [facility] [address] [facility] Start: 03-03-2024 End: 03-03-2026 Cardiac holter monitor (8- 15 days) Cardiac holter monitor (8- 15 days) [facility] Cardiac Services Routine Typical atrial flutter (HCC) Expected: 03/03/2024, Expires: 03/03/2026 [facility]: Comment on above: Expected: 03/03/2024, Expires: Start: 03-03-2024 End: 03-03-2026 Stress echocardiogram (TTE) exercise with contrast, bubble, strain, and 3D PRN Stress echocardiogram (TTE) exercise with contrast, bubble, strain, and 3D PRN CV Stress Echocardiography Routine Typical atrial flutter (HCC) Expected: 03/03/2024 (Approximate), Expires: 03/03/2026 [facility] [employer] Comment on above: Expected: 03/03/2024 (Approximate), Expi res: 03/03/2026 Start: 02-18-2024 End: 02-18-2024 Patient encounter procedure 02/18/2024 3:15 PM EDT Office Visit [facility] [address] [place] [phone] Nickie Gerber MD [address] [place] [address] [facility] Start: 01-05-2024 End: 01-05-2024 Patient encounter procedure 01/05/2024 10:30 AM EST Office Visit [facility] [address] [place] [phone] Jeanette Dixon APRN - VOCATIONAL EVALUATOR [address] [place] [id number] [facility] Start: 12-20-2023 End: 12-20-2023 Patient encounter procedure [facility] Start: 12-02-2023 Lipid screen Lipid screen [place] Start: 12-02-2023 End: 12-02-2023 Admission to [facility] day [facility] center [facility] Comment on above: Ablation a-fib paroxysmal [32281 (CPT )] Start: 12-02-2023 Subsequent hospital visit by physician [facility] Comment on above: Paroxysmal atrial fibrillation (HCC); Typical atrial flutter (HCC) Start: 11-19-2023 End: 11-19-2023 Telemedicine consultation with patient 11/19/2023 2:30 PM EST Telemedicine [facility] [address] [place] [phone] Jeanette Dixon APRN - VOCATIONAL EVALUATOR 95 [facility] [address] [place] [address] [facility] Start: 10-28-2023 End: 10-28-2023 Patient encounter procedure 10/28/2023 3:40 PM EST Office Visit [facility] Endocrinology [address] [facility] [address] [place] [phone] Leann Bernard MD [address] [facility] [address] [place] [address] [facility] Start: 10-28-2023 End: 10-28-2024 Thyrotropin [Units/volume] in Serum or Plasma TSH Lab Routine Graves disease Expected: 10/28/2023 (Approximate), Expires: 10/28/2024 [facility] [employer] [facility] Work Phone: Comment on above: Expected: 10/28/2023 (Approximate), Expi res: 10/28/2024 Start: 10-28-2023 End: 10-28-2024 Thyroxine (T4) free [Mass/volume] in Serum or Plasma T4, free Lab Routine Graves disease Expected: 10/28/2023 (Approximate), Expires: 10/28/2024 [facility] Comment on above: Expected: 10/28/2023 (Approximate), Expi res: 10/28/2024 Start: 10-28-2023 End: 10-28-2024 Triiodothyronine (T3) Free [Mass/volume] in Serum or Plasma T3, free Lab Routine Graves disease Expected: 10/28/2023 (Approximate), Expires: 10/28/2024 [facility] Comment on above: Expected: 10/28/2023 (Approximate), Expi res: 10/28/2024 Start: 10-22-2023 End: 10-22-2024 Basic metabolic 1998 panel - Serum or Plasma Basic metabolic panel Lab Routine Paroxysmal atrial fibrillation (HCC) Expected: 10/22/2023 (Approximate), Expires: 10/22/2024 [facility] Comment on above: Expected: 10/22/2023 (Approximate), Expi res: 10/22/2024 Start: 10-22-2023 End: 10-22-2024 CBC panel - Blood by Automated count CBC Lab Routine Paroxysmal atrial fibrillation (HCC) Expected: 10/22/2023 (Approximate), Expires: 10/22/2024 [facility] [employer] [facility] Work Phone: Comment on above: Expected: 10/22/2023 (Approximate), Expi res: 10/22/2024 Start: 10-22-2023 End: 10-22-2023 Patient encounter procedure 10/22/2023 1:15 PM EST Office Visit [facility] [address] [place] [address] Nickie Gerber MD [address] [place] [address] [facility] Start: 08-24-2023 End: 08-24-2023 Patient encounter procedure 08/24/2023 3:30 PM EDT Office Visit [facility] [address] [place] [phone] Feliberto Banda MD [address] [place] [address] [facility] Start: 07-23-2023 COVID-19 Vaccine ( season) COVID-19 Vaccine ( season) [facility] Start: 07-23-2023 Influenza vaccination Influenza Vaccine (#1) [facility] Start: 04-13-2023 End: 04-13-2023 Patient encounter procedure 04/13/2023 Office Visit Endocrinology Leann Bernard MD [address] [facility] [address] [place], [place] [phone] Endocrinology [facility] Start: 02-16-2023 End: 02-16-2023 Patient encounter procedure 02/16/2023 Office Visit Cardiology Feliberto Banda MD [address] [place] [address] [facility] Start: 07-23-2022 Influenza vaccination Influenza Vaccine (#1) [facility] Start: 04-10-2021 COVID-19 Vaccine (2 - Booster for Moderna series) COVID-19 Vaccine (2 - Booster for Moderna series) [facility] Start: 04-10-2021 COVID-19 Vaccine (2 - Moderna series) COVID-19 Vaccine (2 - Moderna series) [facility] Start: 03-13-2021 COVID-19 Vaccine (2 - Moderna series) COVID-19 Vaccine (2 - Moderna series) [facility] Start: 06-27-2020 Thyroid stimulating hormone measurement TSH Level [facility] Start: 10-23-2019 End: 10-23-2019 Office Visit 10/23/2019 Office Visit Cardiology Feliberto Banda MD [address] [place] [address] [phone] [facility] Start: 07-23-2019 Influenza vaccination Flu vaccine (#1) [facility] [place] Start: 07-17-2019 End: 07-17-2019 Office Visit 07/17/2019 Office Visit Cardiology Mallorie Ambrosio, TILE POWER SHEAR OPERATOR - VOCATIONAL EVALUATOR [address] [place] [address] [phone] [facility] Start: 2017 Colon cancer screen colonoscopy Colon cancer screen colonoscopy [place], [place] Start: 2017 Pneumococcal Vaccine: 50+ Years (1 of 1 - PCV) Pneumococcal Vaccine: 50+ Years (1 of 1 - PCV) [facility] Start: 2017 Shingles Vaccine (1 of 2) Shingles Vaccine (1 of 2) [place], [place] Start: 2017 Zoster Vaccines (1 of 2) Zoster Vaccines (1 of 2) [facility] Start: 10-10-2013 DTaP/Tdap/Td Vaccines (1 - Tdap) DTaP/Tdap/Td Vaccines (1 - Tdap) [facility] Start: 1986 DTaP/Tdap/Td vaccine (1 - Tdap) DTaP/Tdap/Td vaccine (1 - Tdap) [place], [place] Start: 1986 DTaP/Tdap/Td Vaccines (1 - Tdap) DTaP/Tdap/Td Vaccines (1 - Tdap) [facility] Start: 1986 Hepatitis B Vaccines (1 of 3 - 19+ 3-dose series) Hepatitis B Vaccines (1 of 3 - 19+ 3-dose series) [facility] Start: 1985 Diabetes mellitus screening Diabetes Screening [facility] Start: 1985 Hepatitis C screening Hepatitis C Screening [facility] Start: 1982 HIV screen HIV screen [place], [place] Start: 1979 Depression Screening Depression Screening [facility] Start: 1968 MMR Vaccines (1 of 1 - Standard series) MMR Vaccines (1 of 1 - Standard series) [facility] Start: 1967 Hepatitis B Vaccines (1 of 3 - 3-dose series) Hepatitis B Vaccines (1 of 3 - 3-dose series) [facility] Start: 1967 HIV screening HIV Screening [facility] Start: 1967 Lipid panel Lipid Panel [facility] Start: 1967 Screening for malignant neoplasm of colon [facility] End: 07-01-2019 Basic metabolic 2000 panel Basic Metabolic Panel Lab Routine Daily for 4 Occurrences starting 06/28/2019 until 07/01/2019, 3 completed Exec NJALISSA Comment on above: Daily for 4 Occurrences starting 019 until 07/01/2019, 3 completed End: 11-03-2024 Cardiac holter monitor (8- 15 days) [employer] Work Phone: Comment on above: Once for 1 Occurrences starting 11/03/20 until 11/03/2024 End: 06-28-2019 Cardioversion Defibrillation Cardioversion Defibrillation Cardiac Cath Routine One Time for 1 Occurrences starting 06/28/2019 until 06/28/2019 Exec NJALISSA Comment on above: One Time for 1 Occurrences starting 05/2019 until 06/28/2019 End: 06-28-2019 Diagnostic Cardiac Wildlife Removal Specialist Procedure Diagnostic Cardiac Wildlife Removal Specialist Procedure Cardiac Cath Routine One Time for 1 Occurrences starting 06/28/2019 until 06/28/2019 Exec NJALISSA Comment on above: One Time for 1 Occurrences starting 05/2019 until 06/28/2019 ECG 12 lead ECG 12 lead CV E CG Routine 12/02/2023 7:41 AM [employer] Work Phone: ECG 12 lead ECG 12 lead CV E CG Routine 12/02/2023 11:20 AM [employer] ECG 12 lead ECG 12 lead CV E CG Routine Typical atrial flutter (HCC) 03/03/2024 3:21 PM [employer] [facility] ECG 12 lead - CLINIC PERFORMED ECG 12 lead - CLINIC PERFORMED CV ECG Routine Paroxysmal atrial fibrillation (CMS/HCC) (HCC) 06/28/2023 8:20 AM [employer] Work Phone: ECG 12 lead - CLINIC PERFORMED ECG 12 lead - CLINIC PERFORMED CV ECG Routine Paroxysmal atrial fibrillation (HCC) 10/22/2023 1:06 PM EST [facility] ECG 12 lead - CLINIC PERFORMED ECG 12 lead - CLINIC PERFORMED CV ECG Routine Paroxysmal atrial fibrillation (HCC) 12/20/2023 12:54 PM [employer] Work Phone: ECG 12 lead - CLINIC PERFORMED ECG 12 lead - CLINIC PERFORMED CV ECG Routine Paroxysmal atrial fibrillation (HCC) 12/08/2024 2:49 PM EST [facility] Work Phone: EKG [address] [facility] ALISSA [place] Comment on above: Every 12hr until discontinued starting 0 06/27/2019, 6 completed End: 06-29-2019 ELECTROPHYSIOLOGY DEVICE ELECTROPHYSIOLOGY DEVICE Echocardiography Routine One Time for 1 Occurrences starting 06/29/2019 until 06/29/2019 [facility], [place] Comment on above: One Time for 1 Occurrences starting 06/2019 until 06/29/2019 Ephys evl trnsptl tx atrial fib isolat pulm vein ABLATION A-FIB PAROXYSMAL W COMPLETE EP STUDY Paroxysmal atrial fibrillation (HCC) Typical atrial flutter (HCC) [facility] Initiate Oxygen Ther apy Protocol Initiate Oxygen Therapy Protocol Respiratory Care Routine Daily until discontinued starting 06/30/2019 [facility], [place] Comment on above: Daily until discontinued starting 2018 End: 07-01-2019 Magnesium [Mass/Vol] Magnesium Lab Routine Daily for 4 Occurrences starting 06/28/2019 until 07/01/2019, 3 completed [facility], [place] Comment on above: Daily for 4 Occurrences starting 019 until 07/01/2019, 3 completed Immunizations Immunization Date Immunization Notes Care Provider Edgar sanford 08-17-2020 influenza virus vaccine, unspecified formulation Jeanette Dixon TILE POWER SHEAR OPERATOR - VOCATIONAL EVALUATOR Work Phone: [facility] 09-12-2016 influenza, injectabl e, quadrivalent, contains preservative Jeanette Celestinonough TILE POWER SHEAR OPERATOR - VOCATIONAL EVALUATOR Work Phone: [facility] 08-24-2015 influenza, injectabl e, quadrivalent, contains preservative Jeanette Celestinonough TILE POWER SHEAR OPERATOR - VOCATIONAL EVALUATOR Work Phone: [facility] 09-20-2014 influenza, seasonal, injectable Jeanette Celestinonough TILE POWER SHEAR OPERATOR - VOCATIONAL EVALUATOR Work Phone: [facility] 10-09-2013 tetanus and diphther ia toxoids, adsorbed, preservative free, for adult use (2 Lf of tetanus toxoid and 2 Lf of diphtheria toxoid) [facility] 09-18-2013 Influenza virus vaccine [facility] 09-16-2013 influenza virus vaccine, unspecified formulation Jeanette Dixon TILE POWER SHEAR OPERATOR - VOCATIONAL EVALUATOR Work Phone: [facility] [employer] 12-08-2012 influenza virus vaccine, unspecified formulation Jeanette Dixon TILE POWER SHEAR OPERATOR - VOCATIONAL EVALUATOR Work Phone: [facility] 09-12-2011 influenza virus vaccine, unspecified formulation Jeanette Celestinonough TILE POWER SHEAR OPERATOR - VOCATIONAL EVALUATOR Work Phone: [facility] 09-05-2009 influenza virus vaccine, unspecified formulation Jeanette Celestinonough TILE POWER SHEAR OPERATOR - VOCATIONAL EVALUATOR Work Phone: [facility] 09-28-2008 influenza virus vaccine, unspecified formulation Jeanette Celestinonough TILE POWER SHEAR OPERATOR - VOCATIONAL EVALUATOR Work Phone: [facility] [employer] 09-21-2007 influenza virus vaccine, unspecified formulation Jeanette Celestinonough TILE POWER SHEAR OPERATOR - VOCATIONAL EVALUATOR Work Phone: [facility] Payers Date Payer Category Payer Self-pay [id number] 2022 Commercial Managed [facility] [id number] 2022 Unknown [id number] 2021 Unknown [id number] 2018 Unknown [employer] [address] xxxxxxxxxxxx 2018-Present [phone] [address] [place] [address] xxxxxxxxxxxx [id number] 2016 Unknown [id number] Private Health Insurance [id number] Private Health Insurance Unknown [id number] Unknown [id number] Unknown [id number] Unknown [id number] Unknown [id number] Unknown [id number] Unknown [id number] Unknown [id number] Unknown [id number] Social History Date Type Detail Facility Start: 05-02-2019 End: 02-17-2024 Tobacco smoking status NHIS Never smoker [facility] History of tobacco use [place] Start: 05-02-2019 End: 05-21-2025 Alcohol intake Not Currently [facility] Start: 1965 Sex Assigned At Not on file [place] Start: 12-30-2021 End: 02-17-2023 Tobacco smoking status NEIS Unknown if ever smoked [facility] Start: 03-06-2019 [facility] Start: 1965 Sex Assigned At Male [facility] Start: 06-28-2023 Tobacco smoking stat us NEIS Ex-smoker [facility] History of tobacco use Current smoker [facility] Start: 04-13-2023 End: 05-21-2025 Alcohol intake Ex-drinker (finding) [facility] Start: 04-13-2023 End: 05-21-2025 History of Social function [facility] Start: 06-28-2023 Tobacco use and exposure User of smokeless tobacco [facility] History of tobacco use Snuff User [facility] Start: 10-25-2022 End: 06-28-2023 Exposure to SARS-CoV-2 (event) Not sure [facility] Start: 10-09-2013 None [facility] Start: 10-09-2013 Spouse/ Signif icant Other [facility] Within the last year , have you been afraid of your partner or ex-partner? No [facility] Physically Abused Not on file [facility] Start: 06-22-2022 Sex Male (finding) [facility] He alth Medical Equipment Procedure Code Equipment Code Equipment Origin al Text Equipment Identifier Dates Device Closure [employer] - [id number] Start: 12-02-2023 Device Closure [employer] - [id number] Start: 12-02-2023 Device Closure [employer] - [id number] Start: 12-02-2023 Functional Status Date Assessment Result Facility 09-26-2025 Patient Health Questionnaire 2 item (PHQ- 2) [Reported] [facility] 09-26-2025 PHQ-9 quick depression assessment panel [ Reported.PHQ] [facility] Clinical Notes 11-25-2022 to 09-26-2025 Addendum Note - FRANCHESCA Portillo CNP - 09/26/2025 12:52 PM ESTAddendum Note - FRANCHESCA Portillo CNP - 09/26/2025 12:52 PM Berna Gerber MD - 07/13/2025 3:15 PM EDT Note Date & Type Note Facility 09-26-2025 Note Addended by: JEANETTE BENAVIDES on: 09/26/2025 12:52 PM Modules accepted: Orders [facility] 09-26-2025 Note Addended by: JEANETTE BENAVIDES on: 09/26/2025 12:52 PM Modules accepted: Orders [facility] 09-26-2025 Note Addended by: JEANETTE BENAVIDES on: 09/26/2025 12:52 PM Modules accepted: Orders [facility] 09-26-2025 Miscellaneous Notes Addended by: JEANETTE DIXON on: 09/26/2025 12:52 PM Modules accepted: Orders Order placed for 24 hour holter to quantify PVC's. Educated patient on EKG, and [employer]. Pt reports he would like to do a 24-48 Holter Monitor. Pt verbalizes understanding and is agreeable to plan of care. Called and left patient VM, also sent [employer] message. Scheduled EKG nurse visit 09-26-25 @ 9:30. Asked if time and date do not work for patient to call back. PC to patient's spouse. Faye reports patient has been out of rhythm since at least September 12, 2025. Pt reports chest pain, exertional dyspnea and increase in fatigue. Pt take metoprolol prn for symptomatic heart palpitations. Has been having to take 1-2 prn to help control rates. Pt spouse reports she does not have a ECG monitor or device to monitor HR/BP. Pt takes Tikosyn 500mcg twice daily and metoprolol 2 times prn for changes in HR. Pt spouse asking if it is ok to move forward with Right shoulder hemiarthroplasty scheduled for October 22, 2025. PVI SVT typical atrial flutter on 12/02/23. Pt not on anticoagulation. Patient's spouse called in and LM to report the patient has been "in and out of rhythm since the evening of the ". PC to spouse to clarify. She said patient has been taking prescribed medications as usual in the morning, but when he comes home, he seems to be out of rhythm again before evening dose. She said this weekend was not as bad as the past week, but patient has been symptomatic, showing signs of fatigue. Patient also mentioned chest pain on Wednesday. She noticed that when given metoprolol, it is not as "fast working" as normal. She was "listening" to his heart last night and noticed his heart would "skip a beat". Patient's spouse said throughout this time they were not keeping track of HR or BP. Patient's spouse was concerned about upcoming surgery, he is still planning on his procedure on 10-22-25. She asked if he "can still have surgery if he is in a-fib"? She was also wondering if a cardioversion was the recommended course of action, and if so, she was wondering whether it can be done before the surgery. Please advise. EASTON: 07/13/25 NOV: 02/08/26 Signed clearance faxed, as well as OV note. As well as sent to stat scanning. Form complete and returned to paralegal legal secretary to fax. Received cardiac clearance from [facility]. Patient scheduled for right shoulder hemiarthroplasty on 10-22-25. Printed and placed on KM desk for review and signature. EASTON 07-13-25 MSP NOV 02-08-26 KM documented in this encounter [facility] 09-26-2025 Telephone encounter Note Order placed for 24 hour holter to quantify PVC's. [facility] 09-26-2025 Note Educated patient on EKG, and [employer]. Pt reports he would like to do a 24-48 Holter Monitor. Pt verbalizes understanding and is agreeable to plan of care. [facility] 09-26-2025 Telephone encounter Note Educated patient on EKG, and [employer] mobile. Pt reports he would like to do a 24-48 Holter Monitor. Pt verbalizes understanding and is agreeable to plan of care. [facility] 09-25-2025 Telephone encounter Note Called and left patient VM, also sent [employer] message. Scheduled EKG nurse visit 09-26-25 @ 9:30. Asked if time and date do not work for patient to call back. [facility] 09-25-2025 Miscellaneous Notes Called and left patient VM, also sent [employer] message. Scheduled EKG nurse visit 09-26-25 @ 9:30. Asked if time and date do not work for patient to call back. PC to patient's spouse. Faye reports patient has been out of rhythm since at least September 12, 2025. Pt reports chest pain, exertional dyspnea and increase in fatigue. Pt take metoprolol prn for symptomatic heart palpitations. Has been having to take 1-2 prn to help control rates. Pt spouse reports she does not have a ECG monitor or device to monitor HR/BP. Pt takes Tikosyn 500mcg twice daily and metoprolol 2 times prn for changes in HR. Pt spouse asking if it is ok to move forward with Right shoulder hemiarthroplasty scheduled for October 22, 2025. PVI SVT typical atrial flutter on 12/02/23. Pt not on anticoagulation. Patient's spouse called in and LM to report the patient has been "in and out of rhythm since the evening of the ". PC to spouse to clarify. She said patient has been taking prescribed medications as usual in the morning, but when he comes home, he seems to be out of rhythm again before evening dose. She said this weekend was not as bad as the past week, but patient has been symptomatic, showing signs of fatigue. Patient also mentioned chest pain on Wednesday. She noticed that when given metoprolol, it is not as "fast working" as normal. She was "listening" to his heart last night and noticed his heart would "skip a beat". Patient's spouse said throughout this time they were not keeping track of HR or BP. Patient's spouse was concerned about upcoming surgery, he is still planning on his procedure on 10-22-25. She asked if he "can still have surgery if he is in a-fib"? She was also wondering if a cardioversion was the recommended course of action, and if so, she was wondering whether it can be done before the surgery. Please advise. EASTON: 07/13/25 NOV: 02/08/26 Signed clearance faxed, as well as OV note. As well as sent to stat scanning. Form complete and returned to paralegal legal secretary to fax. Received cardiac clearance from [facility]. Patient scheduled for right shoulder hemiarthroplasty on 10-22-25. Printed and placed on KM desk for review and signature. EASTON 07-13-25 MSP NOV 02-08-26 KM documented in this encounter [facility] 09-25-2025 Telephone encounter Note Rescheduled pts upcoming appt with Dr. Garcia on 12/24/25 to 01/04/26 with Sandra Aguila. Sent letter via [employer] and mailed a letter to pts home address as well. [facility] 09-25-2025 Miscellaneous Notes Rescheduled pts upcoming appt with Dr. Garcia on 12/24/25 to 01/04/26 with Sandra Aguila. Sent letter via [employer] and mailed a letter to pts home address as well. documented in this encounter [facility] 09-24-2025 Telephone encounter Note PC to patient's spouse. Faye reports patient has been out of rhythm since at least September 12, 2025. Pt reports chest pain, exertional dyspnea and increase in fatigue. Pt take metoprolol prn for symptomatic heart palpitations. Has been having to take 1-2 prn to help control rates. Pt spouse reports she does not have a ECG monitor or device to monitor HR/BP. Pt takes Tikosyn 500mcg twice daily and metoprolol 2 times prn for changes in HR. Pt spouse asking if it is ok to move forward with Right shoulder hemiarthroplasty scheduled for October 22, 2025. PVI SVT typical atrial flutter on 12/02/23. Pt not on anticoagulation. [employer] 09-24-2025 Miscellaneous Notes PC to patient's spouse. Faye reports patient has been out of rhythm since at least September 12, 2025. Pt reports chest pain, exertional dyspnea and increase in fatigue. Pt take metoprolol prn for symptomatic heart palpitations. Has been having to take 1-2 prn to help control rates. Pt spouse reports she does not have a ECG monitor or device to monitor HR/BP. Pt takes Tikosyn 500mcg twice daily and metoprolol 2 times prn for changes in HR. Pt spouse asking if it is ok to move forward with Right shoulder hemiarthroplasty scheduled for October 22, 2025. PVI SVT typical atrial flutter on 12/02/23. Pt not on anticoagulation. Patient's spouse called in and LM to report the patient has been "in and out of rhythm since the evening of the ". PC to spouse to clarify. She said patient has been taking prescribed medications as usual in the morning, but when he comes home, he seems to be out of rhythm again before evening dose. She said this weekend was not as bad as the past week, but patient has been symptomatic, showing signs of fatigue. Patient also mentioned chest pain on Wednesday. She noticed that when given metoprolol, it is not as "fast working" as normal. She was "listening" to his heart last night and noticed his heart would "skip a beat". Patient's spouse said throughout this time they were not keeping track of HR or BP. Patient's spouse was concerned about upcoming surgery, he is still planning on his procedure on 10-22-25. She asked if he "can still have surgery if he is in a-fib"? She was also wondering if a cardioversion was the recommended course of action, and if so, she was wondering whether it can be done before the surgery. Please advise. EASTON: 07/13/25 NOV: 02/08/26 Signed clearance faxed, as well as OV note. As well as sent to stat scanning. Form complete and returned to paralegal legal secretary to fax. Received cardiac clearance from [facility]. Patient scheduled for right shoulder hemiarthroplasty on 10-22-25. Printed and placed on KM desk for review and signature. [facility] 07-13-25 [facility] 02-08-26 documented in this encounter [facility] 09-24-2025 Telephone encounter Note Patient's spouse called in and LM to report the patient has been "in and out of rhythm since the evening of the ". PC to spouse to clarify. She said patient has been taking prescribed medications as usual in the morning, but when he comes home, he seems to be out of rhythm again before evening dose. She said this weekend was not as bad as the past week, but patient has been symptomatic, showing signs of fatigue. Patient also mentioned chest pain on Wednesday. She noticed that when given metoprolol, it is not as "fast working" as normal. She was "listening" to his heart last night and noticed his heart would "skip a beat". Patient's spouse said throughout this time they were not keeping track of HR or BP. Patient's spouse was concerned about upcoming surgery, he is still planning on his procedure on 10-22-25. She asked if he "can still have surgery if he is in a-fib"? She was also wondering if a cardioversion was the recommended course of action, and if so, she was wondering whether it can be done before the surgery. Please advise. EASTON: 07/13/25 NOV: 02/08/26 [facility] [employer] 09-13-2025 Telephone encounter Note Signed clearance faxed, as well as OV note. As well as sent to stat scanning. [facility] [employer] 09-13-2025 Miscellaneous Notes Signed clearance faxed, as well as OV note. As well as sent to stat scanning. Form complete and returned to paralegal legal secretary to fax. Received cardiac clearance from [facility]. Patient scheduled for right shoulder hemiarthroplasty on 10-22-25. Printed and placed on KM desk for review and signature. [facility] 07-13-25 [facility] 02-08-26 KM documented in this encounter [facility] 09-13-2025 Telephone encounter Note Form complete and returned to paralegal legal secretary to fax. [facility] 09-12-2025 Telephone encounter Note Received cardiac clearance from [facility]. Patient scheduled for right shoulder hemiarthroplasty on 10-22-25. Printed and placed on KM desk for review and signature. [facility] 07-13-25 [facility] 02-08-26 KM [facility] 08-10-2025 Progress note [facility] 07-13-2025 History of Presen t illness Narrative Formatting of this note is different fro m the original. [facility] Medical [facility] Cardiology [facility] [address] [address] Dept: [phone] Dept Loc: [phone] Visit type: Established : 1965 Chief Complaint: Chief Complaint Patient presents with 6 Month Follow-up History of Present Illness: Jorgito Fraga is a 59 y.o. male with a history of pAF/AFl with recurrence despite Tikosyn, s/p PVI + CTI ablation 11/2023, CARMEN on CPAP. He has had a few episodes of AF. He usually just sits and rests when they occur. They are not too bothersome to him. He takes metoprolol as needed for these episodes. No episodes of syncope, dizziness, chest discomfort, shortness of breath, fatigue, or lightheadedness are reported. Past Medical History: Medical History[1] Past Surgical History Surgical History[2] Family History Family History[3] Social History Social History[4] Allergies: Allergies[5] Medications: Current Medications[6] Review of Systems: Review of Systems Constitutional: Positive for fatigue. HENT: Negative. Eyes: Negative. Respiratory: Positive for apnea. Cardiovascular: Positive for palpitations. Gastrointestinal: Negative. Endocrine: Negative. Genitourinary: Negative. Musculoskeletal: Negative. Skin: Negative. Allergic/Immunologic: Negative. Neurological: Positive for dizziness. Hematological: Negative. Psychiatric/Behavioral: Negative. Physical Examination: Vitals: Vitals: 07/13/25 1502 BP: 106/64 BP Location: Left arm Patient Position: Sitting BP Cuff Size: Large adult Pulse: 68 SpO2: 96% Weight: (!) 337 lb 6.4 oz (153 kg) Height: 6' 1.5" (1.867 m) Body mass index is 43.91 kg/m . Physical Exam Constitutional: Appearance: Normal [...] 11/17/2023 Lab Results Component Value Date GLUCOSE 95 12/21/2024 CALCIUM 9.0 12/21/2024 NA 136 12/21/2024 K 4.2 12/21/2024 CO2 25 12/21/2024 CL 105 12/21/2024 BUN 10 12/21/2024 CREATININE 0.83 12/21/2024 [facility] Lab Results Component Value Date CHOL 145 11/26/2023 Lab Results Component Value Date TRIG 115 11/26/2023 Lab Results Component Value Date HDL 25 (A) 11/26/2023 Lab Results Component Value Date LDLCALC 97 11/26/2023 No results found for: "BNP" Assessment and Plan: 1. Paroxysmal atrial fibrillation (HCC) 2. Typical atrial flutter (HCC) - s/p PVI + CTI ablation 11/2023; recurrence afterwards - Continue Tikosyn at the current dose. - ECG shows normal QTc - Will obtain BMP from his PCP. Follow up in 6 months with IVEL[facility]SE. [1] Past Medical History: Diagnosis Date Atrial fibrillation (HCC) Heart murmur Hypothyroidism [2] Past Surgical History: Procedure Laterality Date ABLATION FOR ATRIAL FIBRILLATION (HISTORICAL) N/A 12/02/2023 CAPSULOTOMY, HAND 05/30/2008 12/19/18, 01/02/19, 04/05/19, 06/29/19 CARDIAC ELECTROPHYSIOLOGY PROCEDURE N/A 12/02/2023 Performed by Nickie Gerber MD at [facility] Cardiac Cath/EP Lab CARDIAC ELECTROPHYSIOLOGY PROCEDURE N/A 12/02/2023 Performed by Nickie Gerber MD at [facility] Cardiac Cath/EP Lab CARDIAC PROCEDURE 03/06/2019 TRANSESOPHAGEAL ECHOCARDIOGRAM 05/30/2008 [3] Family History Problem Relation Name Age of Onset Heart disease Maternal Grandmother No Known Problems Brother Pancreatic cancer Father Hypertension Father Arthritis Paternal Grandmother Cancer Maternal Grandfather Arthritis Father Cancer Mother's Sister Alcohol abuse Mother's Sister Diabetes type II Mother No Known Problems Sister Multiple sclerosis Father's Brother No Known Problems Father's Sister Heart disease Mother's Brother [4] Social History Tobacco Use Smoking status: Former Smokeless tobacco: Current Types: Snuff Substance Use Topics Alcohol use: Not Currently Drug use: Never Comment: Tea and sugar free henry xenia often [5] No Known Allergies [6] Current Outpatient Medications: acetaminophen (Tylenol) 500 MG [...] (Tikosyn) 500 MCG capsule, Take 1 capsule by mouth twice daily, Disp: 180 capsule, Rfl: 0 KRILL OIL PO, Take by mouth daily., Disp: , Rfl: magnesium oxide (Mag-Ox) 400 MG tablet, Take 400 mg by mouth See administration instructions. 2 pills once a day, Disp: , Rfl: methIMAzole (Tapazole) 5 MG tablet, TAKE ONE-HALF (1/2) TABLET EVERY MORNING, Disp: 45 tablet, Rfl: 3 metoprolol tartrate (Lopressor) 25 MG tablet, Take 1 tablet (25 mg) by mouth 2 times daily. (Patient taking differently: Take 25 mg by mouth 2 times daily. Prn for changes in HR), Disp: 60 tablet, Rfl: 5 naproxen (Naprosyn) 250 MG tablet, Take 250 mg by mouth if needed for mild pain (1-3)., Disp: , Rfl: omega-3 (Fish Oil) 1000 MG capsule, Take 1,000 mg by mouth in the morning., Disp: , Rfl: TURMERIC PO, Take by mouth daily., Disp: , Rfl: documented in this encounter [facility] 06-11-2025 Telephone encount er Note Formatting of this note might be differe nt from the original. [facility]-12/16 EKG-12/16 [facility] 06-11-2025 Miscellaneous Notes Formattin g of this note might be different from the original. [facility] EKG documented in this encounter [facility] 05-21-2025 History of Presen t illness Narrative Formatting of this note is different fro m the original. . Visit type: Established patient Reason for [...] Size: Large adult) Pulse 66 Ht 6' 2" (1.88 m) Wt (!) 336 lb 12.8 [...] CARDIAC ELECTROPHYSIOLOGY PROCEDURE N/A 12/02/2023 Performed by Nickie Gerber MD at [facility] Cardiac Cath/EP Lab CARDIAC ELECTROPHYSIOLOGY PROCEDURE N/A 12/02/2023 Performed by Nickie Gerber MD at [facility] Cardiac Cath/EP Lab CARDIAC PROCEDURE 03/06/2019 [...] disease Mother's Brother documented in this encounter [facility] 04-13-2025 Evaluation note Diagnosis Onset Date Resolution Atrial fibrillation chronic March 232024 2:03pm Morbid (severe) obesity due to excess calories chronic April 13, 2025 2:03pm CARMEN (obstructive sleep apnea) chronic April 13, 2025 2 :03pm [facility] Work Phone: 1(909) 272-516203-20-2025 Telephone encounter Note* Telephone Encounter - Kayleigh Calhoun RN - 02/08/2025 3:42 PM EDT PC to patient's spouse and gave information, will follow up with PCP for other recommendations and will touch base with names of products if she finds any others [facility] HospitalIvqido67-46-8629 Miscellaneous Notes* Telephone Encounter - Kayleigh Calhoun [...] 9:28 AM EDT Pt's spouse calling regarding "restful sleep" all natural sleep medication. Pt's spouse is asking if this will be ok for pt to take the medication documented in this encounterSUniversity Hospitals Elyria Medical CenterDnityh56-84-3810 Telephone encounter Note* Telephone Encounter - Unique Harrington - 02/08/2025 3:23 PM EDT Pt's spouse lvm she received your vm but was able to get all of the information. Pt's spouse is asking for a call back [facility] HospitalUhlzqh93-52-8049 Telephone encounter Note* Telephone Encounter - Unique Harrington - 02/08/2025 3:02 PM EDT Pt spouse calling to check status of pt taking restful sleep supplement [facility] HospitalZbjfia61-64-9414 Telephone encounter Note* Telephone Encounter - Unique Harrington - 02/02/2025 9:28 AM EDT Pt's spouse calling regarding "restful sleep" all natural sleep medication. Pt's spouse is asking if this will be ok for pt to take the medication [facility] HospitalVacjfb85-04-3338 Telephone encounter Note* Telephone Encounter - FRANCHESCA Worley CNP - 12/22/2024 3:48 PM EST Reviewed labs, will discuss at next visit [facility] [employer] Work Phone: 1(957) 933-323301-31-2025 Miscellaneous Notes* Telephone Encounter - FRANCHESCA Worley CNP - 12/22/2024 3:48 PM EST Reviewed labs, will discuss at next visit * Telephone Encounter - Roula Sanches MA - 12/21/2024 12:12 PM EST Images from the original note were not included. documented in this [facility]01-30-2025 Telephone encounter Note* Telephone Encounter - oRula Sanches MA - 12/21/2024 12:12 PM EST Images from the original note were not included. [facility] HospitalJjtbut13-08-0205 History of Present illness Narrative* Jeanette Dixon, TILE POWER SHEAR OPERATOR - VOCATIONAL EVALUATOR - 12/08/2024 3:30 PM EST Images from the original note were not included. [facility] - [place] [address] [address] Dept: [phone] Dept Visit type: Established : 1965 Reason [...] CARDIAC ELECTROPHYSIOLOGY PROCEDURE N/A 12/02/2023 Performed by Nickie Gerber MD at [facility] Cardiac Cath/EP Lab CARDIAC ELECTROPHYSIOLOGY PROCEDURE N/A 12/02/2023 Performed by Nickie Gerber MD at [facility] Cardiac Cath/EP Lab CARDIAC PROCEDURE 03/06/2019 [...] (!) 335 lb (152 kg) Height: 6' 2" (1.88 m) Physical Exam Vitals reviewed. Constitutional: [...] test. FRANCHESCA Beltran CNP documented in this [facility]01-17-2025 Evaluation + Plan note* Assessment & Plan Note - FRANCHESCA Portillo CNP - 12/08/2024 3:17 PM ESTAssociated Problem(s): Obstructive sleep apnea Continue CPAP nightly. [facility] HospitalZfpuny46-97-3219 Evaluation + Plan note* Assessment & Plan Note - FRANCHESCA Portillo CNP - 12/08/2024 3:17 PM ESTAssociated Problem(s): Typical atrial flutter (HCC) S/p CTI ablation with no recurrence. [facility] HospitalDzfodr95-43-6446 Evaluation + Plan note* Assessment & Plan [...] burden increases andwe can discuss redo ablation. [facility] HospitalMfswiy21-58-0356 Miscellaneous Notes* Assessment & Plan Note - [...] can discuss redo ablation. documented in this encounterSUniversity Hospitals Elyria Medical CenterTgfxdn69-79-7566 Telephone encounter Note* Telephone Encounter - Marguerite Cote - 11/06/2024 10:16 AM EST Patient scheduled with KM 12-08-24. [facility] HospitalIbveuq79-44-6883 Miscellaneous Notes* Telephone Encounter - Marguerite Cote - 11/06/2024 10:16 AM EST Patient scheduled with 1-17-25. * Telephone Encounter - Leana Gonzalez RN [...] with me, on Tikosyn. documented in this [facility]12-16-2024 Telephone encounter Note* Telephone Encounter - Leana Gonzalez RN - 11/06/2024 9:59 AM EST LVM informing patient of test results, marguerite please reach out and schedule follow up appointment. [facility] HospitalShdpck62-07-9026 Telephone encounter Note* Telephone Encounter - Leana Gonzalez RN - 11/06/2024 9:59 AM EST ----- Message from FRANCHESCA Portillo CNP sent at 11/06/2024 8:07 AM EST ----- Please let patient know stress test looked ok, not the best images but no clear evidence of ischemia. He is overdue for follow up, please schedule appt with me, on Tikosyn. [facility] HospitalNrzzpb38-59-9936 Telephone encounter Note* Telephone Encounter - Marguerite Cote - 09/14/2024 10:38 AM EDT Please see new orders have been placed. [facility] HospitalWehycf26-50-7276 Miscellaneous Notes* Telephone Encounter - Marguerite Cote [...] SM placed were put in wrongdepartment. ( [facility] Central scheduling). Thank you * Telephone Encounter - Tiesha Howard - 09/12/2024 9:58 AM EDT Will need new orders. * Telephone Encounter - Meliza Clancy - 09/12/2024 9:44 AM EDT Reason for call: Carly the patients called into schedule the patient for a stress echocardiogram and Holter monitor, but the orders say cancelled and wont let me schedule. Please place new orders. Thank you Contact documented in this encounterSUniversity Hospitals Elyria Medical CenterTnmppg93-46-8892 Telephone encounter Note* Telephone Encounter - FRANCHESCA Portillo CNP - 09/14/2024 10:13 AM EDT New orders placed. [facility] HospitalTnerwf68-24-0582 Telephone encounter Note* Telephone Encounter - Marguerite Cote - 09/14/2024 9:32 AM EDT KM could you please place new orders for stress test and HM? The orders SM placed were put in wrongdepartment. ( [facility] Central scheduling). Thank you [facility] HospitalDfhpwa96-42-9962 Telephone encounter Note* Telephone Encounter - Tiesha Howard - 09/12/2024 9:58 AM EDT Will need new orders. [facility] HospitalXrdgua99-43-9331 Telephone encounter Note* Telephone Encounter - Meliza Clancy - 09/12/2024 9:44 AM EDT Reason for call: Carly the patients called into schedule the patient for a stress echocardiogram and Holter monitor, but the orders say cancelled and wont let me schedule. Please place new orders. Thank you Contact [facility] HospitalPcwqxh94-51-9648 Telephone encounter Note* Telephone Encounter - Chio Puente MA - 06/27/2024 10:31 AM EDT Sent rx request to dr bernard [facility] HospitalIwhbsc33-61-2735 Miscellaneous Notes* Telephone Encounter - Chio Puente MA - 06/27/2024 10:31 AM EDT Sent rx request to dr bernard documented in this encounterSUniversity Hospitals Elyria Medical CenterIejoxm45-09-5189 Telephone encounter Note* Telephone Encounter - Chio Puente MA - 06/09/2024 9:57 AM EDT Called the patients in regards to her , letting her know that I faxed the lab order to [facility] at fax #: [phone]. [facility] HospitalQifttd92-11-0356 Miscellaneous Notes* Telephone Encounter - Chio Puente MA - 06/09/2024 9:57 AM EDT Called the patients in regards to her , letting her know that I faxed the lab order to [facility] at fax #: [phone]. * Telephone Encounter - Chio Puente MA - 06/09/2024 9:54 AM EDT Faxed lab order to [facility] , fax #: [phone]. * Telephone Encounter - Trice Nino - 06/08/2024 3:59 PM EDT Name of caller: faye Contact phone number: [phone] Relationship to Patient: patient Provider: [facility] Practice: [facility] Chief Complaint/Reason for Call: patients is calling in needing the office to fax over an order to [facility] for the patient to get their blood work completed. phone number is [phone] they would like to be notified once that order has been placed. please advise and thankyou Best time of day caller can be reached: any Patient advised that office/PCP has 24-48 business hours to return their call: Yes documented in this encounterSUniversity Hospitals Elyria Medical CenterFrhgxi70-94-6594 Telephone encounter Note* Telephone Encounter - Choi Puente MA - 06/09/2024 9:54 AM EDT Faxed lab order to [facility] , fax #: [phone]. [facility] HospitalIilock68-92-6605 Telephone encounter Note* Telephone Encounter - Trice Nino - 06/08/2024 3:59 PM EDT Name of caller: faye Contact phone number: [phone] Relationship to Patient: patient Provider: [facility] Practice: [facility] Chief Complaint/Reason for Call: patients is calling in needing the office to fax over an order to [facility] for the patient to get their blood work completed. phone number is [phone] they would like to be notified once that order has been placed. please advise and thankyou Best time of day caller can be reached: any Patient advised that office/PCP has 24-48 business hours to return their call: Yes [facility] HospitalIuiqnn98-27-5689 History of Present illness Narrative* Leann Bernard MD - 05/16/2024 4:20 PM EDT Images from the original note were not included. [facility]CR[facility] [address] [address] [facility] [address] Dept: [phone] Dept Loc: [phone] Visit type: Established Reason for Visit: Follow-up and Hyperthyroidism Assessment and Plan 1. Graves disease - TSH - T4, free - T3, free - methIMAzole (Tapazole) 5 MG tablet; Take 0.5 tablets (2.5 mg) by mouth every morning., Starting 05/16/2024, Until Wed05/16/2025, Normal Graves' hyperthyroidism - Diagnosed [...] is CURRY BANDA Referring is PCP Previous Mitigation Supervisor: Dr. Best and Dr. Esparza Initial [facility]ology office visit: 2018 Last office visit: [...] CARDIAC ELECTROPHYSIOLOGY PROCEDURE N/A 12/02/2023 Performed by Nickie Gerber MD at [facility] Cardiac Cath/EP Lab CARDIAC ELECTROPHYSIOLOGY PROCEDURE N/A 12/02/2023 Performed by Nickie Gerber MD at [facility] Cardiac Cath/EP Lab CARDIAC PROCEDURE 03/06/2019 [...] Objective BP 112/68 Pulse 78 Ht 6' 2" (1.88 m) Wt (!) 348 lb (158 [...] date of this note. documented in this [facility]04-25-2024 Telephone encounter Note* Telephone Encounter - Lena Bentley RN - 03/16/2024 4:16 PM EDT OV 02/2024 MSP with EKG [place] [id number] Miscellaneous Notes* Telephone Encounter - Lena Bentley RN - 03/16/2024 4:16 PM EDT OV 02/2024 MSP with EKG documented in this [place] [address]-17-2024 Telephone encounter Note* Telephone Encounter - Marguerite Cote - 03/08/2024 9:08 AM EDT Patient's called in stating she needs to reschedule patient's stress test due to his work schedule. I provided her with central scheduling's phone number. [place] [id number] Miscellaneous Notes* Telephone Encounter - Marguerite Cote - 03/08/2024 9:08 AM EDT Patient's called in stating she needs to reschedule patient's stress test due to his work schedule. I provided her with central scheduling's phone number. documented in this [place] [address]-12-2024 History of Present illness Narrative* Meet Олег Gerber MD - 03/03/2024 3:15 PM EDT [facility] Cardiology [facility] CARDIOLOG[facility] [address] [place] [address] Dept: [phone] Dept Loc: [phone] Visit type: Established : 1965 Chief Complaint: [...] CARDIAC ELECTROPHYSIOLOGY PROCEDURE N/A 12/02/2023 Performed by Nickie Gerber MD at [facility] Cardiac Cath/EP Lab CARDIAC ELECTROPHYSIOLOGY PROCEDURE N/A 12/02/2023 Performed by Nickie Gerber MD at [facility] Cardiac Cath/EP Lab CARDIAC PROCEDURE 03/06/2019 [...] (!) 343 lb (156 kg) Height: 6' 2" (1.88 m) Body mass index is 44.04 [...] continue dofetilide for now. documented in this [facility]01-29-2024 Evaluation + Plan note* Assessment & Plan Note - Jeanette Dixon APRN - VOCATIONAL EVALUATOR - 12/20/2023 1:27 PM ESTAssociated Problem(s): Typical atrial flutter (HCC) S/p successful CTI ablation with no documented recurrence. [facility] HospitalBvdmov68-16-5016 Miscellaneous Notes* Assessment & Plan Note - [...] chadsvasc score of zero. documented in this [facility]01-29-2024 Evaluation + Plan note* Assessment & Plan Note - FRANCHESCA Portillo CNP - 12/20/2023 1:26 PM ESTAssociated Problem(s): Paroxysmal atrial fibrillation (HCC) S/p PVI 1 month ago. He is maintaining sinus rhythm. Will continue Tikosyn for the remainder of theblanking period. His QTc is stable. He will stop Eliquis on 12/03/23, which is 1 month post-PVI given chadsvasc score of zero. [facility] HospitalNuxgxl80-22-1517 History of Present illness Narrative* Jeanette Dixon, TILE POWER SHEAR OPERATOR - VOCATIONAL EVALUATOR - 12/20/2023 1:00 PM EST Images from the original note were not included. [facility] CARDIOLOGY [address] [place] [address] Dept: [phone] Dept Visit type: Established : 1965 Reason [...] 2 months (around 02/18/2024) for Dr. Gerber. Subjective Jorgito Fraga is a 58 y.o. male [...] CARDIAC ELECTROPHYSIOLOGY PROCEDURE N/A 12/02/2023 Performed by Nickie Gerber MD at [facility] Cardiac Cath/EP Lab CARDIAC ELECTROPHYSIOLOGY PROCEDURE N/A 12/02/2023 Performed by Nickie Gerber MD at [facility] Cardiac Cath/EP Lab CARDIAC PROCEDURE 03/06/2019 [...] Reviewed and Summarized No results found for: "EFBP", "PLVEF", "LVEFPHYS", "LVEF2D", "EF" Review of tests/labs done/ordered within my specialty: EKG in office: See HPI FRANCHESCA Portillo CNP documented in this encounterSUniversity Hospitals Elyria Medical CenterJilvku56-56-2693 Telephone encounter Note* Telephone Encounter - Radha Stevens RN - 12/13/2023 2:49 PM EST Called and spoke to patient to let him know last day of taking eliquis would be 01/03/24 [facility] HospitalAjcqgu71-50-1479 Miscellaneous Notes* Telephone Encounter - Radha Stevens RN - 12/13/2023 2:49 PM EST Called and spoke to patient to let him know last day of taking eliquis would be 01/03/24 * Telephone Encounter - Marguerite Cote - 12/10/2023 3:06 PM EST Patient called back, she said her question was how long her is to continue taking the medication? Please call her back at [phone] * Addendum Note - FRANCHESCA Portillo CNP - 12/10/2023 2:33 PM ESTAddended by: JEANETTE DIXON on: 12/10/2023 02:33 PM Modules accepted: Orders * Telephone Encounter - FRANCHESCA Portillo CNP - 12/10/2023 2:30 PM EST Since we have not heard back and it is the weekend, I sent in a 30-day supply of Eliquis to his [facility] so he does not run out. I will send him a AIRTAME message informing him as we have not [...] CNP - 12/10/2023 9:[address] Gerber sent a script for the Eliquis to [facility] on 10[facility]/23 with refills. He initially sent a 90-day supply so can you see how they are out? He only needs to remain on it for 1 month post-ablation. * Telephone Encounter - Radha Stevens RN - 12/10/2023 9:27 AM EST EASTON-11/13 KM NOV-12/15 CBC-11/13 CMP-11/13 CR-0.86 * Telephone Encounter - Tiesha Howard - 12/10/2023 9:04 AM EST Pt's spouse calling in today asking about his Eliquis. Pt running low and they will be out of town.Asking if he will remain on the Elqiuis. If so will need new Rx [facility] documented in this encounterSUniversity Hospitals Elyria Medical CenterNqgxgy22-67-8079 Telephone encounter Note* Telephone Encounter - Marguerite Cote - 12/10/2023 3:06 PM EST Patient called back, she said her question was how long her is to continue taking the medication? Please call her back at [phone] [facility] HospitalAckikm24-64-3199 Miscellaneous Notes* Telephone Encounter - Marguerite Cote - 12/10/2023 3:06 PM EST Patient called back, she said her question was how long her is to continue taking the medication? Please call her back at [phone] * Addendum Note - FRANCHESCA Portillo CNP - 12/10/2023 2:33 PM ESTAddended by: JEANETTE DIXON on: 12/10/2023 02:33 PM Modules accepted: Orders * Telephone Encounter - FRANCHESCA Portillo CNP - 12/10/2023 2:30 PM EST Since we have not heard back and it is the weekend, I sent in a 30-day supply of Eliquis to his [facility] so he does not run out. I will send him a AIRTAME message informing him as we have not [...] CNP - 12/10/2023 9:[address] Gerber sent a script for the Eliquis to [facility] on 10/22/23 with refills. He initially sent a 90-day supply so can you see how they are out? He only needs to remain on it for 1 month post-ablation. * Telephone Encounter - Radha Stevens RN - 12/10/2023 9:27 AM EST EASTON-11/13 KM NOV-12/15 CBC-11/13 CMP-11/13 CR-0.86 * Telephone Encounter - Tiesha Roblero March - 12/10/2023 9:04 AM EST Pt's spouse calling in today asking about his Eliquis. Pt running low and they will be out of town.Asking if he will remain on the Elqiuis. If so will need new Rx sent to [facility] documented in this [facility]01-19-2024 Note* Addendum Note - FRANCHESCA Portillo CNP - 12/10/2023 2:33 PM ESTAddended by: JEANETTE DIXON on: 12/10/2023 02:33 PM Modules accepted: Orders [facility] HospitalBqflbc78-56-3905 Note* Addendum Note - FRANCHESCA Portillo CNP - 12/10/2023 2:33 PM ESTAddended by: JEANETTE DIXON on: 12/10/2023 02:33 PM Modules accepted: Orders [facility] HospitalOgkdyo21-02-4856 Note* Addendum Note - FRANCHESCA Portillo CNP - 12/10/2023 2:33 PM ESTAddended by: JEANETTE DIXON on: 12/10/2023 02:33 PM Modules accepted: Orders [place] [id number] Telephone encounter Note* Telephone Encounter - FRANCHESCA Portillo CNP - 12/10/2023 2:30 PM EST Since we have not heard back and it is the weekend, I sent in a 30-day supply of Eliquis to his [facility] so he does not run out. I will send him a AIRTAME message informing him as we have not been able to reach him. [address]Xrmbkw26-94-6498 Telephone encounter Note* Telephone Encounter - Radha Stevens RN - 12/10/2023 12:22 PM EST Also called and LVM on Vm as well [place] [id number] Telephone encounter Note* Telephone Encounter - Marguerite Cote - 12/10/2023 10:01 AM EST Called and left VM to confirm how patient was out of eliquis. Will inform team when I receive a call back with information. [place] [id number] Telephone encounter Note* Telephone Encounter - FRANCHESCA Portillo CNP - 12/10/2023 9:[address] Gerber sent a script for the Eliquis to [facility] 10/[facility]/23 with refills. He initially sent a 90-day supply so can you see how they are out? He only needs to remain on it for 1 month post-ablation. [address]ofckn04-81-6537 Telephone encounter Note* Telephone Encounter - Radha Stevens RN - 12/10/2023 9:27 AM EST EASTON-11/13 KM NOV-12/15 CBC-11/13 CMP-11/13 CR-0.86 [facility]01-19-2024 Telephone encounter Note* Telephone Encounter - Tiesha Roblero March - 12/10/2023 9:04 AM EST Pt's spouse calling in today asking about his Eliquis. Pt running low and they will be out of town.Asking if he will remain on the Elqiuis. If so will need new Rx sent to [facility]01-11-2024 Nurse Note* Gaviota Elizabeth RN - 12/02/2023 2:05 PM EST Pt up went to restroom, walked hallway 400ft. Steady no drainage noted, Pt tolerated well. Changinginto clothes to head home [facility] HospitalIwdkae00-82-0005 Nurse Note* Gaviota Elizabeth RN - 12/02/2023 2:05 PM EST Pt up went to restroom, walked hallway 400ft. Steady no drainage noted, Pt tolerated well. Changinginto clothes to head home * Gaviota Elizabeth RN - 12/02/2023 1:35 PM EST Pt sat at side of bed. Tolerated well. Sitting up to eat lunch. documented in this encounterSUniversity [facility]als [facility]ly[facility] [id number] Nurse Note* Gaviota Elizabeth RN - 12/02/2023 1:35 PM EST Pt sat at side of bed. Tolerated well. Sitting up to eat lunch. [id number] History of Present illness Narrative* FRANCHESCA Portillo [...] scheduled with me before he goes to [place] in December. documented in this [facility]01-11-2024 Miscellaneous Notes* Perioperative Nursing Note - Lauren Contreras RN - 12/02/2023 12:06 PM EST REPORT GIVEN TO TOMAS, PREP AND RECOVERY UPDATE GIVEN TO PATIENTS FAYE * Perioperative Nursing Note - Lauren Contreras RN - 12/02/2023 11:18 AM EST GROVE WORKER AT BEDSIDE * Perioperative Nursing Note - Lauren Contreras RN - 12/02/2023 11:18 AM EST Patient family/visitor updated by RN at this time. documented in this [facility]01-11-2024 Note* Perioperative Nursing Note - Lauren Contreras RN - 12/02/2023 12:06 PM EST REPORT GIVEN TO TOMAS, PREP AND RECOVERY UPDATE GIVEN TO PATIENTS FAYE PITTS [id number] Note* Perioperative Nursing Note - Lauren Contreras RN - 12/02/2023 12:06 PM EST REPORT GIVEN TO TOMAS, PREP AND RECOVERY UPDATE GIVEN TO PATIENTS FAYE PITTS [id number] Note* Perioperative Nursing Note - Lauren Contreras RN - 12/02/2023 11:18 AM EST GROVE WORKER AT BEDSIDE [id number] Note* Perioperative Nursing Note - Lauren Contreras RN - 12/02/2023 11:18 AM EST GROVE WORKER AT BEDSIDE [id number] Note* Perioperative Nursing Note - Lauren Contreras RN - 12/02/2023 11:18 AM EST Patient family/visitor updated by RN at this time. [id number] Note* Perioperative Nursing Note - Lauren Contreras RN - 12/02/2023 11:18 AM EST Patient family/visitor updated by RN at this time. [id number] Hospital Discharge instructions* Discharge Instructions* Jeanette Dixon APRN - [place] - 12/02/2023 7:50 AM EST Post Pulmonary [...] prescribed by your doctor documented in this [facility]01-08-2024 Telephone encounter Note* Telephone Encounter - Radha Stevens RN - 11/29/2023 4:[address] [facility]-11/13 KM [facility] [id number] Miscellaneous Notes* Telephone Encounter - Radha Stevens RN - 11/29/2023 4:[address] [facility] KM documented in this [facility]12-29-2023 History and physical note* FRANCHESCA Portillo CNP - 11/19/2023 2:42 PM EST [facility] Telehealth Cardiology Note DATE of SERVICE: 11/19/23 TIME of SERVICE: 2:39 PM Chief Complaint: Chief Complaint Patient presents with Follow-up History of Present Illness: Jorgito Fraga is a 58 y.o. male with a history of pAF/AFl who is having recurrent atrial fibrillation despite Tikosyn. He is scheduled for PVI with Dr. Gerber 12/02/23. He was started on Eliquis andis [...] phone. Pre- procedure lab work received from [place] and unremarkable. All questions answered. Patient was [...] that they are currently in the state [facility]. If the patient is a minor, [...] the History & Physical was originally completed. Nickie Gerber MD [facility] HospitalBzdxjn96-19-0576 History and physical note* Jeanette Dixon APRN - VOCATIONAL EVALUATOR - 11/19/2023 2:42 PM EST [facility] Telehealth Cardiology Note DATE of SERVICE: 11/19/23 TIME of SERVICE: 2:39 PM Chief Complaint: Chief Complaint Patient presents with Follow-up History of Present Illness: Jorgito Fraga is a 58 y.o. male with a history of pAF/AFl who is having recurrent atrial fibrillation despite Tikosyn. He is scheduled for PVI with Dr. Gerber 12/02/23. He was started on Eliquis andis [...] phone. Pre- procedure lab work received from [place] and unremarkable. All questions answered. Patient was [...] stated that they are currently in the [facility]. If the patient is a minor, permission [...] the History & Physical was originally completed. Nickie Gerber MD documented in this [facility]12-29-2023 History of Present illness Narrative* Jeanette Dixon APRN - VOCATIONAL EVALUATOR - 11/19/2023 2:30 PM EST [facility] Tele[facility] Cardiology Note DATE of SERVICE: 11/19/23 TIME of SERVICE: 2:39 PM Chief Complaint: Chief Complaint Patient presents with Follow-up History of Present Illness: Jorgito Fraga is a 58 y.o. male with a history of pAF/AFl who is having recurrent atrial fibrillation despite Tikosyn. He is scheduled for PVI with Dr. Gerber 12/02/23. He was started on Eliquis andis [...] phone. Pre- procedure lab work received from [facility] and unremarkable. All questions answered. Patient was [...] that they are currently in the state [facility]. If the patient is a minor, permission has been obtained by the parent or guardian for the patient to receive medical care at this visit. documented in this [facility]12-07-2023 History of Present illness Narrative* Leann Bernard MD - 10/28/2023 3:40 PM EST Images from the original note were not included. [facility] ENDOCRINOLOGY [address] [facility] [address] [facility] [address] Dept: [phone] Dept Loc: [phone] Visit type: Established Reason for Visit: Follow-up [...] is CURRY BANDA Referring is PCP Previous Mitigation Supervisor: Dr. Best and Dr. Esparza [facility] office visit: 2018 Last office visit: [...] Objective BP 126/74 Pulse 67 Ht 6' 2" (1.88 m) Wt (!) 347 lb (157 [...] the signing physician directly. documented in this [facility]12-01-2023 History of Present illness Narrative* Meet Олег Gerber MD - 10/22/2023 1:15 PM EST [facility] Cardiology [facility] CARDIOLOGY [address] [facility] [address] Dept: [phone] Dept Visit type: Established : 1965 Chief [...] not on ant icoagulation given his low [id number] score. Past Medical History: Past Medical History: [...] lb 3.2 oz (157 kg) Height: 6' 2" (1.88 m) Body mass index is 44.32 [...] normal. Laboratory Tests: No results found for: "WBC", "HGB", "HCT", "MCV", "PLT" Lab Results Component Value Date GLUCOSE 92 07/29/2022 CALCIUM 9.2 07/29/2022 NA 139 07/29/2022 K 3.9 07/29/2022 CO2 28.0 07/29/2022 CL 106 07/29/2022 BUN 13 07/29/2022 CREATININE 0.80 07/29/2022 @LASTCMP@ No results found for: "CHLPL", "CHOL" No results found for: "TRIG" No results found for: "HDL" No results found for: "LDLCALC" No results found for: "BNP" Cardiac Tests: Last Echo: 2019 SUMMARY: 1. [...] a brief period afterwards. documented in this [place] [address]-08-2023 Telephone encounter Note* Telephone Encounter - Leann Bernard MD - 09/29/2023 10:41 AM EST Normal thyroid functions , will discuss during clinic visit next month [place] [id number] Miscellaneous Notes* Telephone Encounter - Leann Bernard MD - 09/29/2023 10:41 AM EST Normal thyroid functions , will discuss during clinic visit next month * Telephone Encounter - Chio Puente MA - 09/29/2023 10:34 AM EST Thyroid lab results are scanned into the media for review. documented in this [place] [address]-08-2023 Telephone encounter Note* Telephone Encounter - Chio Puente MA - 09/29/2023 10:34 AM EST Thyroid lab results are scanned into the media for review. [place] [id number] Telephone encounter Note* Telephone Encounter - Leann Bernard MD - 09/27/2023 1:57 PM EST Labs from May 2023 shows negative TSI and negative TSH receptor antibody & normal thyroid functions. Will discuss during clinic visit next month [facility] HospitalJpfeuq69-18-4440 Miscellaneous Notes* Telephone Encounter - Laenn Bernard MD - 09/27/2023 1:57 PM EST Labs from May 2023 shows negative TSI and negative TSH receptor antibody & normal thyroid functions. Will discuss during clinic visit next month * Telephone Encounter - Chio Puente MA - 09/27/2023 10:17 AM EST Lab results are scanned into the media for your review. documented in this encounterSUniversity Hospitals Elyria Medical CenterOxrhqc46-46-2358 Telephone encounter Note* Telephone Encounter - Chio Puente MA - 09/27/2023 10:17 AM EST Lab results are scanned into the media for your review. [facility] HospitalAcwfwr05-14-0340 Telephone encounter Note* Telephone Encounter - Chelsi Shelton - 09/20/2023 4:28 PM EDT Spoke to pt's who stated [facility] needed lab orders faxed over. Faxed orders to [phone]. [place] [address]Whcdph90-54-1844 Miscellaneous Notes* Telephone Encounter - Chelsi Shelton - 09/20/2023 4:28 PM EDT Spoke to pt's who stated [facility] needed lab orders faxed over. Faxed orders to [phone]. documented in this [facility]10-25-2023 Telephone encounter Note* Telephone Encounter - Lena Bentley RN - 09/15/2023 1:04 PM EDT OV 06/2023 JKS with EKG Spoke with no current BMP Please mail the lab slip to house ( order placed january) Also fax to [facility] where hre goes thanks [facility] HospitalNngstx41-28-5054 Miscellaneous Notes* Telephone Encounter - Lena Bentley RN - 09/15/2023 1:04 PM EDT OV 06/2023 JKS with EKG Spoke with no current BMP Please mail the lab slip to house ( order placed january) Also fax to [facility] that where hre goes thanks * Telephone Encounter - Tiesha Roblero March - 09/15/2023 12:59 PM EDT Pt's calling in today for refill on dofetilide 500 mcg to [facility] in [place] requesting 90 daysupply with refills documented in this [facility]10-25-2023 Telephone encounter Note* Telephone Encounter - Tiesha Roblero March - 09/15/2023 12:59 PM EDT Pt's calling in today for refill on dofetilide 500 mcg to [facility] in [place] requesting 90 daysupply with refills [facility] HospitalIqbocj46-64-7865 History of Present illness Narrative* Feliberto Banda MD - 06/28/2023 8:15 AM EDT [facility] Cardiology Note Chief Complaint: [...] (!) 341 lb (155 kg) Height: 6' 2" (1.88 m) Body mass index is 43.78 [...] 07/29/2022 BUN 13 07/29/2022 CREATININE 0.80 07/29/2022 @[facility]@ No results found for: CHLPL, CHOL No [...] likely schedule the ablation. documented in this [facility]08-01-2023 Telephone encounter Note* Telephone Encounter - Tiesha Roblero March - 06/22/2023 11:50 AM EDT PC to pt x2 call picks up and then disconnects. I will print and mail lab order with note to pt [facility] HospitalBqlzmq13-48-2394 Telephone encounter Note* Telephone Encounter - Lena Bentley RN - 06/21/2023 7:43 AM EDT OV 01/3023 with EKG BMP 07/2022 pls call pt see if he ever got BMP done ordered in january? thanks [facility] HospitalLuamcg24-47-2843 Miscellaneous Notes* Telephone Encounter - Lena Bentley RN - 06/21/2023 7:43 AM EDT OV 01/3023 with EKG BMP 07/2022 pls call pt see if he ever got BMP done ordered in january? thanks documented in this [facility]05-01-2023 Miscellaneous Notes* Telephone Encounter - Tiesha Roblero March - 06/22/2023 11:50 AM EDT PC to pt x2 call picks up and then disconnects. I will print and mail lab order with note to pt * Telephone Encounter - Lena Bentley RN - 06/21/2023 7:43 AM EDT OV 01/3023 with EKG BMP 07/2022 pls call pt see if he ever got BMP done ordered in january? thanks documented in this [facility]01-04-2023 Telephone encounter Note* Telephone Encounter - Kwame Barroso - 11/25/2022 1:10 PM EST Sent rx request to bullet maker [facility] [id number] Miscellaneous Notes* Telephone Encounter - Kwame Barroso - 11/25/2022 1:10 PM EST Sent rx request to bullet maker * Telephone Encounter - Leroy Rodriguez - 11/25/2022 [...] up the medication: No documented in this [facility]01-04-2023 Telephone encounter Note* Telephone Encounter - Leroy [...] prior to picking up the medication: No [facility] noteNo assessment information availableWSelect Medical Specialty Hospital - [facility] Work Phone: Evaluation note* Diagnosis Paroxysmal atrial fibrillation (CMS/HCC) (HCC) Atrial fibrillation documented in this encounter [facility] note* Diagnosis Paroxysmal atrial fibrillation (HCC)- Primary Atrial fibrillation Typical atrial flutter (HCC) documented in this encounter [facility] note* Diagnosis 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 documented in this encounter [facility] note* Diagnosis Typical atrial flutter (HCC)- Primary Paroxysmal atrial fibrillation (HCC) Atrial fibrillation Paroxysmal atrial fibrillation (HCC)- Primary Atrial fibrillation Typical atrial flutter (HCC) Paroxysmal atrial fibrillation (HCC) Atrial fibrillation Typical atrial flutter (HCC) documented in this encounter [facility] note* Diagnosis Typical atrial flutter (HCC)- Primary Paroxysmal atrial fibrillation (HCC) Atrial fibrillation Paroxysmal atrial fibrillation (HCC) Atrial fibrillation Typical atrial flutter (HCC) documented in this encounter [facility] note* Diagnosis Paroxysmal atrial fibrillation (HCC)- Primary Atrial fibrillation Typical atrial flutter (HCC) documented in this encounter [facility] note* Diagnosis Paroxysmal atrial fibrillation (HCC)- Primary Atrial fibrillation Typical atrial flutter (HCC) documented in this encounter [facility] note* Diagnosis Graves disease- Primary 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 or storm documented in this encounter [facility] note* Diagnosis Graves disease- Primary 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 or storm documented in this encounter [facility] note* Diagnosis Paroxysmal atrial fibrillation (HCC)- Primary Atrial fibrillation Typical atrial flutter (HCC) Other chest pain- Primary [facility] Diagnosis Paroxysmal atrial fibrillation (HCC)- Primary Atrial fibrillation Typical atrial flutter (HCC) Typical atrial flutter (HCC)- Primary Other chest pain documented in this encounter [facility]* Diagnosis Paroxysmal atrial fibrillation (HCC)- Primary Atrial fibrillation Typical atrial flutter (HCC) Other chest pain documented in this encounter [facility]* Diagnosis Paroxysmal atrial fibrillation (HCC)- Primary Atrial fibrillation Typical atrial flutter (HCC) Typical atrial flutter (HCC) documented in this encounter [facility]* Diagnosis Paroxysmal atrial fibrillation (HCC)- Primary Atrial fibrillation Typical atrial flutter (HCC) Obstructive sleep apnea- Primary Obstructive sleep apnea (adult) (pediatric) Paroxysmal atrial fibrillation (HCC) Atrial fibrillation Typical atrial flutter (HCC) documented in this encounter [facility]* Diagnosis Paroxysmal atrial fibrillation (HCC)- Primary Atrial fibrillation Typical atrial flutter (HCC) Obstructive sleep apnea- Primary Obstructive sleep apnea (adult) (pediatric) Paroxysmal atrial fibrillation (HCC) Atrial fibrillation Typical atrial flutter (HCC) Graves disease- Primary 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 or storm documented [facility] this encounter [facility]* Diagnosis Paroxysmal atrial fibrillation (HCC)- Primary Atrial fibrillation Typical atrial flutter (HCC) Obstructive sleep apnea- Primary Obstructive sleep apnea (adult) (pediatric) Paroxysmal atrial fibrillation (HCC) Atrial fibrillation Typical atrial flutter (HCC) 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 documented in this encounter [facility]* Diagnosis Paroxysmal atrial fibrillation (HCC)- Primary Atrial fibrillation Typical atrial flutter (HCC) Obstructive sleep apnea- Primary Obstructive sleep apnea (adult) (pediatric) Paroxysmal atrial fibrillation (HCC) Atrial fibrillation Typical atrial flutter (HCC) Paroxysmal atrial fibrillation (HCC)- Primary Atrial fibrillation Typical atrial flutter (HCC) documented in this encounter [facility]* Diagnosis Onset Date Resolution Status Admit Date Atrial fibrillation chronic Septe mber 2024 12:59pm Morbid (severe) obesity due to excess calories chronic July 12:59pm CARMEN (obstructive sleep apnea) chroni c August 10, 2025 12:59pm [facility] Work Phone: Evaluation note* Diagnosis Paroxysmal atrial fibrillation (HCC)- Primary Atrial fibrillation Typical atrial flutter (HCC) Obstructive sleep apnea- Primary Obstructive sleep apnea (adult) (pediatric) Paroxysmal atrial fibrillation (HCC) Atrial fibrillation Typical atrial flutter (HCC) PVC (premature ventricular contraction)- Primary Other premature beats documented in this encounter [facility] note Author Paulina Tinsley [facility] Note Date/Time August 10, 2025 1:21pm [facility] [address] [place] [address] OFFICE VISIT Date of Service: 08/10/25 MR#: [id number] Acct: [id number] Name: JORGITO FRAGA Rep #: [id number] : 1965 Provider: KIET Tinsley Age/Sex: 59/M Location[place] [facility] Status: Signed Assessment and Plan Assessment and Plan (1) CARMEN (obstructive sleep apnea): Status: Chronic Comment: AHI 45 on BiPAP 21/17 cmH2O with residual AHI of 1.9 Plan: Improved. He is using and benefiting from Pap therapy. No indication for titration study at this time. Contact the office for any new or worsening symptoms in the meantime. Follow-up in 1 year. (2) Atrial fibrillation: Status: Chronic Qualifiers: Atrial fibrillation type: paroxysmal Qualified Code(s): I48.0 - Paroxysmal atrial fibrillation Plan: Complicates exam, plan, care and prognosis. (3) Morbid (severe) obesity due to excess calories: Status: Chronic Plan: Complicates exam, plan, care and prognosis. Continue to encourage healthy weight loss. Plan This note was generated with [employer] dictation software. It may contain incorrectwords, spelling, and punctuation that were not noted in checking the note beforesigning. Plan Details Follow Up: 1 Year HPI HPI Comments Details: This patient presents to the office today for routine follow-up of his obstructive sleep apnea. He is ambulatory and currently on room air. He is accompanied today by his . He has not been seen in the ED or urgent care for any respiratory illness recently. He has not required any antibiotics or prednisone for any breathing problems. He is a lifelong never smoker. He denies any difficulty with shortness of breath. He denies any wheezing, chest tightness, chest pain or palpitations. He has an occasional cough that isnonproductive. He denies any fever, chills or body aches. He is waking feeling more rested and refreshed. He is no longer having difficulty with mask leaks. He is no longer having dry mouth. He denies excessive nocturia. He is pleased to report he is able to sleep for at least 4 hours straight without interruption. He is happy with the reduced pressure. Compliance report for the past 30 days shows 100% compliance with an average useof 6 hours and 3 minutes per night. Current setting is BiPAP 19/15 cmH2O with residual AHI 2.2 events per hour. Leaks to appear to be occurring routinely. Intake Vital Signs 04/13/25 08:33 08/10/25 08:57 Height 6 ft 2 in 6 ft 2 in Weight: 335 lb 336 lb BMI 43.0 43.1 BP 164/79 H 131/67 H Blood Pressure Location Lt radial Lt brachial Position Sitting Sitting Respiration 18 20 H Pulse 98 73 Pulse Source NIBP Monitor Temp 97.4 F L 95.6 F L Temperature Source Oral Temporal Artery Pulse Oximetry (%) 99 96 Oxygen Delivery Method room air room air Intake Visit Reasons: 3 M FU Chief Complaint: CARMEN Graphics Editor Required: No DME Vendor: Rashida Accompanied by: Allergies No Known Allergies Allergy (Verified 08/10/25 13:05) Medications ?Medication ?Instructions ?Recorded ?Confirmed ?Type aspirin 81 mg tablet,delayed 81 mg PO DAILY 02/28/19 0 08/10/25 History release (Adult Aspirin Regimen) dofetilide 500 mcg capsule PO #180 caps 10/12/1908/10 History methimazole 5 mg tablet 2.5 mg PO DAILY 02/17/24 History coenzyme Q10 [CoQ-10] PO QDAY 04/13/25 08/10/25 Hi story krill oil PO QDAY 04/13/25 08/10/25 Hi story magnesium glycinate PO QDAY 04/13/25 08/10/25 Hi story metoprolol tartrate 25 mg tablet 25 mg PO BID PRN 03/2308/10/25 History omega-3 fatty acids [Fish Oil] PO QDAY 04/13/25 History vitamin B complex [B Complex Super] PO QDAY 04/13/25 0 08/10/25 History PFS Medical History Atrial fibrillation History of pneumonia History of sepsis Hypersomnia, unspecified Nicotine dependence Patent foramen ovale Morbid (severe) obesity due to excess calories Hyperthyroidism Paroxysmal atrial fibrillation Surgical History History of left heart catheterization (03/06/19) History of foot surgery History of cardioversion (04/06/19) Family History Father Diabetes Hypertension Mother Diabetes Hypertension Grandmother Myocardial infarction Social History Smoking Status: Never smoker Tobacco: How many years used: 9 Smokeless tobacco user: chewing tobacco and snuff how long ago did patient quit smokin years ago second hand exposure: Yes alcohol intake: current alcohol intake frequency: holidays/special occasions only substance use type: does not use caffeine: Yes Type: coffee Number of servings: 3 Review of Systems Resp Respiratory: Yes as per HPI Exam Const Constitutional: Positive conversant, cooperative, in no acute respiratory distress, healthy appearing, well developed, well nourished, good hygiene and obese Head Head: Yes normocephalic, Yes atraumatic and No cyanosis of lips/distal nose Eyes Eye: Positive clear conjunctiva; Negative nystagmus or scleral abnormality Ears Ear: Positive hearing normal and external ears normal Nose Nose: Yes external nose normal Mouth Mouth: Positive oral mucosae normal Neck Neck: Positive normal visual inspection, thick neck, full ROM and trachea midline; Negative JVD Chest Wall Chest: Positive normal inspection of the chest and symmetric chest movement Resp lung sounds: Positive clear to auscultation, good air exchange and normal expiratory time; Negative wheezes, rhonchi, rales or use of accessory muscles Cardio Cardiac: Positive regular rate, regular rhythm, S1 normal and S2 normal; Negative murmur, rub or gallop GI GI: Positive obese Musc Musculoskeletal: Positive steady gait; Negative kyphosis or scoliosis Skin Pulmonary Skin Exam: Positive intact; Negative lesion, rash, ulcers or erythema Extremities Extremities: No clubbing and No cyanosis Neuro Neurologic: Yes no focal neuro deficits, Yes conversant, Yes cooperative, Yes normal cognition, Yes normal coordination, Yes normal concentration and Yes understands questions Psych Appearance: Positive grossly normal, eye contact and well kempt Mental Status: Positive mental status grossly normal Mood: Positive congruent mood Affect: Positive normal affect Coding Level of Care Code Off vis,est,level 3 Diagnoses CARMEN (obstructive sleep apnea) G47.33 Paroxysmal atrial fibrillation I48.0 Atrial fibrillation type: paroxysmal Morbid (severe) obesity due to excess calories E66.01 08/10/25 1425 <Electronically signed by Paulina goff NP MANAGER TECHNICAL-C> Date _ Paulina Tinsley NP MANAGER TECHNICAL-C Cosigner Signature: Date (if applicable) CC: Dr. Curry Banda MD ~ [facility] Work Phone: Reason for referral (narrative)No reason for referral information [facility] Phone: Reason for visit Narrative* Imaging (Routine) - Closed Specialty Diagnoses / Procedures Referred By Contac t Referred To Contact Cardiology Diagnoses Other chest pain Procedures Stress echocardiogram (TTE) exercise with contrast, bubble, strain, and 3D PRN MD ECHO TTHRC R-T 2D W/WO M-MODE COMPLETE REST&ST MD ECHO TTHRC R-T 2D W/WO M-MODE REST&STRS CONT ECG MD DOPPLER ECHOCARD PULSE WAVE W/SPECTRAL DISPLAY MD DOP ECHOCARD COLOR FLOW VELOCITY MAPPING MD CV STRS TST XERS&/OR RX CONT ECG W/O I&R MD CV STRS TST XERS&/OR RX CONT ECG TRCG ONLY MD CV STRS TST XERS&/OR RX CONT ECG I&R ONLY Jeanette Dixon, FRANCHESCA - VOCATIONAL EVALUATOR [address] [place] [id number] Phone: tel: fax: Referral ID Status Reason Start Date Expiration Date Visits Re quested Visits Authorized [id number] Closed 09/14/2024 09/14/2025 [facility] N[facility] ([facility]ine) - Closed Specialty Diagnoses / Procedures Referred By Contjoann t Referred To Contact Cardiology Diagnoses Typical atrial flutter (HCC) Procedures Cardiac holter monitor (8- 15 days) MD EXTERNAL ECG REC>48HR<7D REVIEW & INTERPRETATION MD EXTERNAL ECG REC>48HR<7D RECORDING MD EXTERNAL ECG REC>7D<15D RECORDING MD EXTERNAL ECG REC>7D<15D REVIEW & INTERPRETATION Jeanette Dixon APRN - CNP [address] [place] [address] [place] [address] Phone: tel: fax: Referral ID Status Reason Start Date Expiration Date Visits Re quested Visits Authorized [id number] Closed 09/14/2024 09/09/2025 1 1 [facility] Discharge Instructions * Discharge Instr - [...] most local grocery stores, pharmacies, and chain [employer]-stores. ? If you have any questions about your diet or nutrition, call the hospital and ask for the dietitian. * Attachments The following attachments cannot be sent through Care Everywhere. * dofetilide (Hungarian) documented in this encounter History of Present [...] Denies Depression VITAL SIGNS: Vitals: 06/28/19 1535 06/28/19201006/29/19 0549 06/29/19 0739 BP: 136/84 134/70 101/75 117/68 Pulse: 100 92 77 86 Resp: 18 20 17 14 Temp: 97.6 F (36.4 C) 96.6 [...] be monitored and followed by the diet automotive brake technician. * Mitch Marvin MD - 06/27/2019 [...] Documents on File Type Date Recorded Patient Behavior Interventionist Expl anation Advance Directives and Living Will Power of Hand Hide Stretcher Latest Code Status on File Code Status Date Activated Date Inactivated Comments Full Code 06/28/2019 2:26 PM Full Code 06/27/2019 6:32 PM 06/28/2019 2:26 PM Documents on File Type Date Recorded Patient Behavior Interventionist Expl anation Advance Directives and Living Will Power of Hand Hide Stretcher Latest Code Status on File Code Status Date Activated Date Inactivated Comments Full Code 06/28/2019 2:26 PM 06/30/2019 3:12 PM Full Code 06/27/2019 6:32 PM 06/28/2019 2:26 PM Advance Directive Response Recorded Date/ Time Advance Directives No April 05 9 10:42am Living Will No April 05, 2019 1 0:42am Power of Hand Hide Stretcher No April 05, 2019 10:42am Advance Directive Response Recorded Date/ Time Advance Directives No April 05 9 9:42am Living Will No April 05, 2019 9 :42am Power of Hand Hide Stretcher No April 05, 2019 9:42am Latest Code [...] Procedures Echo 2D Doppler Color Mallorie Ambrosio APRN - VOCATIONAL EVALUATOR [address] [place] [address] Specialty Diagnoses / Procedures Referred By Rowdy moon Referred To Contact Nickie Gerber MD [address] [place] [address] Referral ID Status Reason Start Date Expiration Date Visits Re quested Visits Authorized [id number] Closed 1 1 Specialty Diagnoses / Procedures Referred By Contac t Referred To Contact Jeanette Dixon, FRANCHESCA Sellers CNP [address] [place] [address] Referral ID Status Reason Start Date Expiration Date V isits Requested Visits Authorized [id number] Pending Review 1 1 Specialty Diagnoses / Procedures Referred By Soteroac t Referred To Contact Cardiology Diagnoses Typical atrial flutter (HCC) Procedures Stress echocardiogram (TTE) exercise with contrast, bubble, strain, and 3D PRN MD ECHO TTHRC R-T 2D W/WO M-MODE COMPLETE REST&ST MD ECHO TTHRC R-T 2D W/WO M-MODE REST&STRS CONT ECG MD DOPPLER ECHOCARD PULSE WAVE W/SPECTRAL DISPLAY MD DOP ECHOCARD COLOR FLOW VELOCITY MAPPING MD CV STRS TST XERS&/OR RX CONT ECG W/O I&R MD CV STRS TST XERS&/OR RX CONT ECG TRCG ONLY MD CV STRS TST XERS&/OR RX CONT ECG I&R ONLY Nickie Gerber MD [address] [place] [address] Referral ID Status Reason Start Date Expiration Date V isits Requested Visits Authorized [id number] Authorized 03/03/2024 03/03/2025 1 1 Specialty Diagnoses / Procedures Referred By Soteroac t Referred To Contact Cardiology Diagnoses Typical atrial flutter (HCC) Procedures Cardiac holter monitor (8- 15 days) MD EXTERNAL ECG REC>48HR<7D REVIEW & INTERPRETATION MD EXTERNAL ECG REC>48HR<7D RECORDING MD EXTERNAL ECG REC>7D<15D RECORDING MD EXTERNAL ECG REC>7D<15D REVIEW & INTERPRETATION Nickie Gerber MD [address] [place] [address] [facility] [address] [place] [address] Referral ID Status Reason Start Date Expiration Date V isits Requested Visits Authorized [id number] Authorized 03/03/2024 02/26/2025 1 1 Summary Purpose [...] (obstructive sleep apnea) April 13, 2025 2:03pm Chief Complaint Admit Date E05.00 May 26, 2025 10:58 am 3 M FU August 10, 2025 12:59pm Reason for Visit Admit Date Atrial fibrillation August 10, 2025 12:59pm Morbid (severe) obesity due to excess ca lories August 10, 2025 12:59pm CARMEN (obstructive sleep apnea) August 10, 2025 12:59pm Additional Source Comments (unrecognized sect ion and content) No Status Records FoundNo Status Records FoundNo Status Records Found INFORMATION SOURCE (unrecogn ized section and content) DATE CREATED AUTHOR 06/26/2021 [facility] DATE CREATED AUTHOR AUTHOR'S ORGANIZ ATION 09/28/2025 [facility] DATE CREATED AUTHOR AUTHOR'S ORGANIZ ATION 10/03/2025 [place] [facility] Goals (unrecognized section and content) Goals may [...] flutter (HCC) [I48.3] Procedures Ablation a-fib paroxysmal Nickie Gerber MD [address] [place] [address] [facility] Cardiac Cath/Ep Lab [address] [place] [address] Referral ID Status Reason Start Date Expiration Date Visits Re quested Visits Authorized [id number] 1 1 Reason Onset Date Comments Med [...] Only 02/02/2025 Reason Comments Graves' Disease Follow-up Reason Comments 6 Month Follow-up Reason Onset Date Comments Cardiac Clearance 09/12/2025 Reason Onset Date Comments Cardiac Clearance 09/12/2025 Care Teams (unrecognized sec tion and content) Glass Bead Maker Relationship Specialty Start Date End Date Luis M Gonzalez [address] [place] [phone] PCP - General 01/30/19 Glass Bead Maker Relationship Specialty Start Date End Date Luis M Gonzalez [address] [place] [phone] PCP - General 01/30/19 Glass Bead Maker Relationship Specialty Start Date End Date Luis M Gonzalez [address] [place] [phone] PCP - General 01/30/19 Team Status: Active Member Role Status Dates Dr. Luis M Gonzalez MD Family Provider Active Dr. Luis M Gonzalez MD Primary Care Provider Active Team Status: Inactive Member Role Status Dates Dr. Luis M Gonzalez MD Primary Care Provider Active CHACORTA RIOS Attending Provider, Referring Provid er Active Glass Bead Maker Relationship Specialty Start Date End Date Luis M Gonzalez [address] [place] [place] [phone] PCP - General 01/30/19 Glass Bead Maker Relationship Specialty Start Date End Date Curry Banda [address] [place] [address] PCP - General Family Medicine 10/22/23 Glass Bead Maker Relationship Specialty Start Date End Date Curry Banda [address] [place] [address] PCP - General Family Medicine 10/22/23 Glass Bead Maker Relationship Specialty Start Date End Date Curry Banda [address] [place] [address] PCP - General Family Medicine 10/22/23 Glass Bead Maker Relationship Specialty Start Date End Date Curry Banda [address] [place] [address] PCP - General Family Medicine 10/22/23 Team [...] Dr. Curry Banda MD Attending Provider Active Glass Bead Maker Relationship Specialty Start Date End Date Curry Banda [address] [place] [address] PCP - General Family Medicine 10/22/23 Team Status: Inactive Member Role Status Dates No Primary Care Physician Primary Care Provider Active CHACORTA RIOS Attending Provider Active Glass Bead Maker Relationship Specialty Start Date End Date Curry Banda [address] [place] [address] PCP - General Family Medicine 10/22/23 Glass Bead Maker Relationship Specialty Start Date End Date Curry Banda [address] [place] [address] PCP - General Family Medicine 10/22/23 Glass Bead Maker Relationship Specialty Start Date End Date Curry Banda [address] [place] [address] PCP - General Family Medicine 10/22/23 Glass Bead Maker Relationship Specialty Start Date End Date Curry Banda [address] [place] [address] PCP - General Family Medicine 10/22/23 Glass Bead Maker Relationship Specialty Start Date End Date Curry Banda [address] [place] [address] PCP - General Family Medicine 10/22/23 Glass Bead Maker Relationship Specialty Start Date End Date Curry Banda [address] [place] [address] PCP - General Family Medicine 10/22/23 Glass Bead Maker Relationship Specialty Start Date End Date Curry Banda [address] [place] [address] PCP - General Family Medicine 10/22/23 Glass Bead Maker Relationship Specialty Start Date End Date Curry Banda [address] [place] [address] PCP - General Family Medicine 10/22/23 Glass Bead Maker Relationship Specialty Start Date End Date Curry Banda [address] [place] [address] PCP - General Family Medicine 10/22/23 Glass Bead Maker Relationship Specialty Start Date End Date Curry Banda [address] [place] [address] PCP - General Family Medicine 10/22/23 Glass Bead Maker Relationship Specialty Start Date End Date Luis M Gonzalez [address] [facility] [place] [phone] PCP - General 01/30/19 Glass Bead Maker Relationship Specialty Start Date End Date Curry Banda [address] [place] [address] PCP - General Family Medicine 10/22/23 Glass Bead Maker Relationship Specialty Start Date End Date Curry Banda [address] [place] [address] PCP - General Family Medicine 10/22/23 Glass Bead Maker Relationship Specialty Start Date End Date Curry Banda [address] [place] [address] PCP - General Family Medicine 10/22/23 Glass Bead Maker Relationship Specialty Start Date End Date uCrry Banda [address] [facility] [address] [place] [phone] PCP - General [facility] Medicine 10/22/23 Team Status: Active Member Role/Relationship Status Dates Dr. Luis M Gonzalez MD Family Provider Active Dr. uCrry Banda MD Primary Care Provider Active Team Status: Inactive Member Role/Relationship Status Dates Dr. Curry Banda MD Primary Care Provider Active Start: April 13, 2025 End: April 13, 2025 Dr. Curry Banda MD Referring Provider Active St art: April 13, 2025 End: April 13, 2025 Paulina Tinsley MANAGER TECHNICAL, MANAGER TECHNICAL-C Attending Provider Active Start: April 13, 2025 [...] May 26, 2025 End: May 26, 2025 Glass Bead Maker Relationship Specialty Start Date End Date Curry Banda [address] [facility] [address] [place] [phone] PCP - [facility] 10/22/23 Team Status: Inactive Member Role/Relationship Status Dates Dr. Curry Banda MD Primary Care Provider Active Start: July 07, 2025 End: July 07, 2025 Dr. Curry Banda MD Attending Provider Active St art: July 07, 2025 End: July 07, 2025 Dr. Curry Banda MD Referring Provider Active St art: July 07, 2025 End: July 07, 2025 Team Status: Active Member Role/Relationship Status Dates Dr. Luis M Gonzalez MD Primary care physician Active Dr. Curry Banda MD Primary care physician Active Team Status: Inactive Member Role/Relationship Status Dates Dr. Curry Banda MD Primary care physician Active Start: May 26, 2025 End: May 26, 2025 Dr. Fernando Garcia MD Attending physician Active Start: May 26, 2025 End: May 26, 2025 Dr. Fernando Garcia MD Referring Provider Active S tart: May 26, 2025 End: May 26, 2025 Team Status: Inactive Member Role/Relationship Status Dates Dr. Curry Banda MD Primary care physician Active Start: July 07, 2025 End: July 07, 2025 Dr. Curry Banda MD Attending physician Active S tart: July 07, 2025 End: July 07, 2025 Dr. Curry Banda MD Referring Provider Active St art: July 07, 2025 End: July 07, 2025 Team Status: Inactive Member Role/Relationship Status Dates Dr. Curry Banda MD Primary care physician Active Start: August 10, 2025 End: August 10, 2025 Dr. Curry Banda MD Referring Provider Active St art: August 10, 2025 End: August 10, 2025 Paulina Tinsley MANAGER TECHNICAL, MANAGER TECHNICAL-C Attending physician Active Start: August 10, 2025 End: August 10, 2025 Glass Bead Maker Relationship Specialty Start Date End Date Curry Banda [address] [facility] [address] [place] [phone] PCP - General Family Medicine 10/22/23 Glass Bead Maker Relationship Specialty Start Date End Date Curry Banda [address] [facility] [address] [place] [phone] PCP - General Family Medicine 10/22/23 Glass Bead Maker Relationship Specialty Start Date End Date Curry Banda [address] [facility] [address] [place] [address] PCP - General Family Medicine 10/22/23 Scheduled Active and Recently Administ ered Medications (unrecognized section and content) Medication Order 11/30/2023 12/01/2023 12/02/2023 apixaban (Eliquis) tablet 5 mg 5 mg, Oral, Once, On Yvette 12/02/23 at 1100, For 1 dose, PLEASE GIVE IN PACU ONCE PATIENT AWAKE AND ABLE TO TAKE PO 1058 ([facility] Hold - Pro vider: Automatic Transfer Provider - Reason: Patient not available)1100 (Dose Auto Held - Provider: Automatic Transfer Provider)1154 (Canceled Entry - Provider: Automatic Discharge Provider - Comment: Automatically canceled at discontinue of medication order)1628 ([facility] Unhold - Provider: Automatic Discharge Provider) [...] or Central Line = 20 mL/lumen 1058 ([facility] Hold - Pro vider: Automatic Transfer Provider - Reason: Patient not available)1100 (Dose Auto Held - Provider: Automatic Transfer Provider)1628 ([facility] Unhold - Provider: Automatic Discharge Provider) PRN Medication Order 11/30/2023 12/01/2023 12/02/2023 acetaminophen (Tylenol) tablet 650 mg 650 mg, Oral, Every 4 hours PRN, mild pain (1-3), Fever > 100.5 F (38 C), Starting on Yvette 12/02/23 at 1051, Recovery & On Unit, Maximum dose of acetaminophen is 4000 mg from all sources in 24 hours. 1058 ([facility] Hold - Pro vider: Automatic Transfer Provider - Reason: Patient not available)1628 ([facility] Unhold - Provider: Automatic Discharge Provider) bupivacaine PF (Marcaine) 0.5 % injection (CANCELED) As needed, Starting on Yvette 12/02/23 at 1045, Intraprocedure 1045 (Given - Provid er: Nickie Gerber MD) lidocaine-EPINEPHrine (Xylocaine W/EPI) 1 %-1:[id number] injection (CANCELED) As needed, Starting on Yvette 1/11/24 at 1045, Intraprocedure 1045 (Given - Provid er: Nickie Gerber MD) sodium chloride 0.9 % infusion [...] Transfer Provider - Reason: Patient not available)1628 ([facility] Unhold - Provider: Automatic Discharge Provider) FOR [...] BE BASED ON THE PRIMARY CLINICAL RECORDS. [facility] [employer] provides no warranty or guarantee of the accuracy or completeness of information in this document.
[2025-10-22] MEDS: Magnesium 1 GM over 15 mins IV (06:12)
[2025-10-22] MEDS: LR 1,000 ML - BOLUS PREOP 999 ML IV (06:12)
--- NOTE | 2025-10-22 06:54 | PCM.PRE.AN2 ---
ASA Classification* ASA Classification ASA Classification: 2 Assessment & Plan Anesthesia* Anesthesia Assessment Anesthesia Assessment: Discussed sedation and/or anesthesia options, risks, benefits, and alternatives with patient/parents/legal guardian/POA. Questions invited. The patient/parents/legal guardian/POA seems to understand and agrees to proceed with anesthesia plan. Reviewed the physical assessment, medical history, allergy history and patient home medications list prior to surgery/procedure/anesthetic and documented any changes. Performed airway and anesthesia risk assessments. Anesthesia Type Anesthesia Type: General and Block History Source History Obtained from:: Patient, Chart and Significant Other (Spouse in the room) Anesthesia Focused Assessment* Temperature: 97.6 F Pulse Rate: 56 Blood Pressure: 121/79 Respiratory Rate: 16 Pulse Ox: 97 Oxygen Delivery Method: Room Air Airway Assessment Mouth opens: >3 cm Mallampati Score: II Teeth Condition: Missing Neck Range of motion (ROM): Full ROM Labs Anesthesia Preop lab: CBC WBC, (4.4-11.0) 12.7 K/mm3 H 09/26/25, 16: RBC, (4.6-6.2) 5.02 M/mm3 09/26/25, 16:51 Hgb, (13.0-16.5) 14.6 g/dL 09/26/25, 16: Hct, (40-54) 42.1 % 09/26/25, 16: Plt Count, (150-450) 304 K/mm3 09/26/25, 16:51 CHEMISTRY Potassium, (3.3-5.1) 4.3 mmol/L 09/26/25, 16: Sodium, (133-145) 140 mmol/L 09/26/25, 16:51 Magnesium, (1.5-2.2) 2.0 mg/dL 09/26/25, 16:51 BUN, (4-19) 14 mg/dL 09/26/25, 16:51 Creatinine, (0.70-1.20) 0.81 mg/dL 09/26/25, 16:51 Glucose, (70-99) 77 mg/dL 09/26/25, 16:51 POC Glucose, (74-106) 138 mg/dL H Today, 05:58 TSH, (0.300-4.200) 2.620 uIU/mL 10/03/25, 16:23 COAG PT, (11.7-14.9) 14.2 SECONDS 11/17/23, 10:29 Pre-Assessment Diagnosis/Proposed Procedure Planned Operative Procedure(s): ERAS RIGHT TOTAL HEMIARHTROPLASTY Anesthesia History 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 When Was Last Pacemaker Check QUESTION #4 FULL TEXT: You/Your Family Experience fever (hyperthermia) with Anesthesia Last Oral Intake Last Oral intake: Last Oral Intake NPO since 03:30 10/22/25 05:50 Meds taken in AM with sips of Yes 10/22/25 05:50 water? Meds patient instructed to see med list 10/22/25 05:50 take am of surgery PONV PONV - concrete gun operator: PONV - concrete gun operator Female No 09/25/25 15:16 HX of Motion Sickness No 09/25/25 15:16 HX of N/V After Surgery No 09/25/25 15:16 Non-Smoker Yes 09/25/25 15:16 Duration of Surgery greater Yes 09/25/25 15:16 than 60 minutes Number of Risk Factors 2 09/25/25 15:16 PONV Score Moderate Risk 09/25/25 15:16 Height & Weight Height & Weight: Anesthesia: Height & Weight Height 6 ft 2 in 10/22/25 05:50 Weight: 156.1 kg 10/22/25 05:50 Body Mass Index (BMI) 44.1 10/22/25 05:50 Respiratory Assessment Respiratory Assessment - concrete gun operator: Respiratory Tract Infection Hx - concrete gun operator Hx Respiratory Tract Infection No 09/25/25 15:16 STOP Sleep Apnea STOP Sleep Apnea - concrete gun operator: STOP Sleep Apnea - concrete gun operator Hx Hypertension No 09/25/25 15:16 Hx Sleep Apnea Yes 09/25/25 15:16 CPAP Yes 09/25/25 15:16 BIPAP No 09/25/25 15:16 Do you snore loudly (louder than talking or can be heard Do you often feel tired/ fatigued/ sleepy during daytime? Has anyone observed you stop breathing during sleep? STOP Results Positive 09/25/25 15:16 QUESTION #5 FULL TEXT : Do you snore loudly (louder than talking or can be heard through closed doors)? 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 Specify any problems Hx of Preganancy in last 3 N/A 09/25/25 15:16 Months Nurse Filling Out Transfusion [email or web address] 09/25/25 15:16 & Questions: Date: 09/25/25 09/25/25 15:16 Time: 15:24 09/25/25 15:16 Patient unable to answer at this time (ie. confused, unrespo /Reproduction History /Reproductive History - concrete gun operator: /Reproductive Hx- concrete gun operator Hx Now Gestational Age (in weeks): EDC: Hx Hx Para Hx Section SAB Does the father of the baby or his family experience fever w Father of the baby Malignant Hypertension history comment Active Medications Active Medications: Current Medications Generic Name Dose Route Start Last Admin Trade Name Freq PRN Reason Stop Dose Admin Acetaminophen 1,000 mg 10/22/25 07:30 10/22/25 06:13 Acetaminophen 500 Mg Tablet PO 10/22/25 07:31 1,000 mg PREOP ONE Administration Celecoxib 400 mg 10/22/25 07:30 10/22/25 06:13 Celecoxib 200 Mg Capsule PO 10/22/25 07:31 400 mg PREOP ONE Administration Gabapentin 600 mg 10/22/25 07:30 10/22/25 06:13 Gabapentin 600 Mg Tablet PO 10/22/25 07:31 600 mg PREOP ONE Administration Lactated Ringer's 1,000 mls @ 999 mls/hr 10/22/25 07:30 10/22/25 06:12 IV 10/22/25 08:30 999 mls/hr .Q1H1M HAYDEN Administration Cefazolin Sodium 3 gm/ Sodium 115 mls @ 150 mls/hr 10/22/25 07:30 Chloride IV 10/22/25 08:15 INTRAOP ONE Tranexamic Acid 1,000 mg/ 110 mls @ 660 mls/hr 10/22/25 07:30 Sodium Chloride IV 10/22/25 07:39 INTRAOP ONE Tranexamic Acid 1,000 mg/ 110 mls @ 660 mls/hr 10/22/25 07:30 Sodium Chloride IV 10/22/25 07:39 INTRAOP ONE Lactated Ringer's 1,000 mls @ 999 mls/hr 10/22/25 07:30 IV 10/22/25 08:30 .Q1H1M HAYDEN Lactated Ringer's 1,000 mls @ 125 mls/hr 10/22/25 07:30 IV 10/22/25 15:29 .Q8H HAYDEN Magnesium Sulfate 1 gm/ 102 mls @ 408 mls/hr 10/22/25 07:30 10/22/25 06:12 Dextrose IV 10/22/25 07:44 408 mls/hr PREOP ONE Administration Lactated Ringer's 1,000 mls @ 15 mls/hr 10/22/25 05:30 IV .Q48H HAYDEN Insulin Human Lispro 1 - 6 unit 10/22/25 07:30 Insulin Lispro 100 Unit/Ml Insuln.Pen SC 10/22/25 18:00 Q4H PRN PRN BG>/= 180, SEE PROTOCOL Protocol PFSH Medical History Chest pain History of steroid therapy Thyroid disease Arthritis Fatty liver Injury of head and neck Back pain History of hiatal hernia Sleep apnea CPAP (continuous positive airway pressure) dependence Shortness of breath on exertion Former smoker History of edema History of stress test History of echocardiogram Cardiology follow-up encounter Atrial fibrillation History of pneumonia History of sepsis Hypersomnia, unspecified Nicotine dependence Patent foramen ovale Morbid (severe) obesity due to excess calories Hyperthyroidism Paroxysmal atrial fibrillation Home Medications Medication Instructions Recorded Last Taken Type aspirin 81 mg tablet,delayed 81 mg PO DAILY 02/28/19 04/05/19 History release (Adult Aspirin Regimen) dofetilide 500 mcg capsule 500 mcg PO BID #180 caps 10/12/19 Unknown History methimazole 5 mg tablet 2.5 mg PO DAILY 02/17/24 Unknown History coenzyme Q10 1 tab PO QDAY 04/13/25 Unknown History krill oil 1 cap PO QDAY 04/13/25 Unknown History magnesium glycinate 3 tab PO QDAY 04/13/25 Unknown History metoprolol tartrate 25 mg tablet 25 mg PO BID PRN HEART RACING 04/13/25 Unknown History omega-3 fatty acids 1 cap PO QDAY 04/13/25 Unknown History vitamin B complex 1 tab PO QDAY 04/13/25 Unknown History turmeric 400 mg capsule 400 mg PO DAILY 09/25/25 Unknown History vitamin E 268 mg (400 unit) capsule 268 mg PO BID 09/25/25 Unknown History Allergy/AdvReac Type Severity Reaction Status Date / Time No Known Allergies Allergy Verified 10/22/25 05:50 Family History Father Diabetes Hypertension Mother Diabetes Hypertension Grandmother Myocardial infarction Surgical History H/O cardiac ablation History of left heart catheterization (03/06/19) History of foot surgery History of cardioversion (04/06/19) Social History Smoking Status: Former smoker Tobacco: How many years used: 9 Smokeless tobacco user: chewing tobacco and snuff how long ago did patient quit smokin years ago second hand exposure: Yes alcohol intake: current alcohol intake frequency: holidays/special occasions only substance use type: does not use caffeine: Yes Type: coffee Number of servings: 3 Review of Systems (Anesthesia) ROS Narrative System reviewed and no additional complaints, except as documented.
[2025-10-22] MEDS: Midazolam 2 MG/2 ML Syringe IV (07:20)
[2025-10-22] MEDS: Lidocaine 1% (5 ml sdv) 5 ML Vial 3 ML IV (07:38)
[2025-10-22] MEDS: Cefazolin 1 GM/5 ML Vial 3 GM IV (07:41)
[2025-10-22] MEDS: TRANEXAMIC ACID 1,000 MG/10 ML ML 2000 MG IV (09:25)
[2025-10-22] MEDS: fentaNYL 100 MCG/2 ML Ampul IV (09:35)
[2025-10-22] MEDS: Ketorolac 30 MG/ML Syringe IV (09:53)
--- NOTE | 2025-10-22 10:02 | PCM.POST.ANE ---
Anesthesia: Postop Eval I Current Vital Signs Temperature: 97 F Pulse Rate: 52 Blood Pressure: 100/68 Respiratory Rate: 16 Pulse Ox: 100 Oxygen Delivery Method: Nasal Cannula Oxygen Flow Rate (L/min): 2 Assessment Airway patent: Yes Spontaneous unlabored respirations: Yes Mental status: Awake and Calm nausea: No Vomiting: No Anesthesia Complication: No Fluid Hydration Crystalloid volume administer (ml): 800 Total IV fluid infused: 800 Progress Note Anesthesia document: Postop Eval 1 completed: Yes
--- NOTE | 2025-10-22 10:08 | PCM.OPRPT ---
Operative Report (Standard) Operative Information Date of Procedure: 10/22/25 Pre-Operative Diagnosis: Right primary glenohumeral joint osteoarthritis Post-Operative Diagnosis: Right primary glenohumeral joint osteoarthritis Surgery/Procedure Performed: Right shoulder hemiarthroplasty lift manager: Yes Medical Billing Representative: Radha Lockwood Tasks completed by registered nurse first assistant: Opening & closing, Implanting device and Retracting Additional assistant professor sculpture?: No Type of Anesthesia: General/Regional RN Documented Start/Stop Times: Operation Date: 10/22/25 07:30 Case Time Into Pre-Op 10/22/25 05:25 Anesthesia Start 10/22/25 07:30 Into Room 10/22/25 07:30 Procedure Start 10/22/25 07:59 Procedure End 10/22/25 09:41 Anesthesia End 10/22/25 09:53 Out of Room 10/22/25 09:53 Into Recovery 10/22/25 09:58 Procedure Start Time: 07:59 Procedure Stop Time: 09:41 Select all DRAINS/GRAFTS/IMPLANTS that apply: Implanted device Implanted device details: Tornier flex standard stem size 4B angle 132.5 degree, pirate carbon humeral head high eccentric 50 x 16 mm Estimated Blood Loss: 150 cc Specimen collected: No Description of surgery: Patient was identified in the preoperative holding area by name, medical record number, and date of . The operative extremity was marked. All questions were answered to patient's satisfaction. Interscalene block was then administered by anesthesia staff. At time of his procedure, patient was brought to the operative suite and positioned supine on a standard operating table. General anesthesia was induced and endotracheal tube placed. Patient was then positioned in the beachchair position with all bony prominences well-padded. The wing of the bed was removed to access the scapula. Chest strap was applied. Blood pressure was appropriate for beach position. Provisional skin prep performed with hydrogen peroxide. We then prepped and draped the right upper extremity in normal, sterile orthopedic fashion with ChloraPrep. Timeout was called confirming the side, site, and operation to be performed. No concerns were voiced and elected proceed with surgery.3 g Ancef and 1 g IV TXA was administered IV prior to incision by anesthesia staff. I first marked a standard deltopectoral incision just lateral to the coracoid process in line with the long axis of the humerus. Skin was sharply incised with 10 blade scalpel. I then dissected bluntly through the subcutaneous layers and found the fat stripe between the deltoid and pectoralis major. The cephalic vein was then identified and protected. It was retracted laterally with the deltoid. I then bluntly dissected underneath the deltoid with a Shelton elevator. Laura retractor was placed. I then identified the long head of the biceps tendon in the intertubercular groove. This was tenodesed in situ with #2 FiberWire. I then amputated the biceps proximal to the tenodesis site and followed the tendon to the supraglenoid tubercle where it was amputated. This identified the lesser and greater tuberosities. The supraspinatus pristine. I then performed a subscapularis peel while rotating the humerus externally. I tagged the subscapularis for repair later with a tagging suture. Humeral head was then dislocated anteriorly. Appropriate access to the humeral head was confirmed. I then subluxed the humeral head posteriorly with a Fukuda retractor placed around the posterior lip of the glenoid. Inferior capsule was tensioned. I was able to palpate the axillary nerve.3 sided subscapularis release was performed with Bovie cautery. I then remove the Fukuda retractor and redislocated the shoulder anteriorly. I then made a anatomic neck cut of the cartilaginous surface of the humeral head. Inferior humeral neck osteophytes were excised. Opening reaming was performed and I broached up to a size #4 stem with excellent purchase. We trialed heads and reduced the shoulder several times with multiple trial heads. We settled upon a high E centricity 50 mm head which demonstrated excellent tension and appropriate mobility without overt instability. I have performed a final dislocation. Trials were removed. Canal was irrigated copiously with normal saline. Drill holes were made for suture repair of the subscapularis with 4 suture tapes. Final stem was then impacted to plan position. Final reaming was performed for a flat cut surface. Final head was then impacted per sap data analyst recommendations with the specialized pirate carbon impaction device. Appropriate Mata taper purchase was noted. Final reduction was performed. Stability was maintained from trialing. I then performed a 3-minute Betadine soak of dilute sterile Betadine. The wound was copious irrigated normal saline then. The subscapularis was then repaired meticulously with 3 transosseous suture tapes sequentially tied and then a [id number] suture tape which applied excellent compression across the repair. Sutures were cut. Repair was stable to external and internal rotation. The rotator interval was then closed with interrupted [id number] suture tape. The wound was again irrigated. Fascia was reapproximated with running, locking #1 Vicryl suture. Skin was reapproximated with buried 2-0 Vicryl suture in the dermis and subcuticular 4-0 V-Loc. Sterile compression dressing silver Mepilex applied. A UltraSling was applied. Patient was awakened in the operative suite and safely extubated. She was transferred to his hospital bed and subsequent to PACU in stable condition. He tolerated the procedure well without apparent complication. Need for skilled assistant professor sculpture: Radha Lockwood PA-C was critical to the outcome of the case. During the course of the procedure the physician assistant professor sculpture played a vital role. Her intimate knowledge of my steps in the procedure aided in safe and expedient completion of the procedure. The PA played a vital role in positioning particularly in obtaining the appropriate positioning. The PA was also vital in the retraction of soft tissues during the exposure and protecting vital structures. The PA was also vital and protecting soft tissues during times of bony cuts. She also played a vital role in closure with my direct supervision. The PA was also important during reduction and dislocation of the joint and trials intraoperatively. Intraoperative medications: 3 g Ancef IV, 1 g TXA IV x2 Postoperative plan: Patient be placed observation overnight due to cardiac history and 24 hours IV antibiotics. Sling x 6 weeks. No external rotation beyond 30 degrees. Pendulums to start postoperative day #1. Follow-up in 2 weeks with x-rays upon arrival. Anticipate discharge home tomorrow. Multimodal pain management with Tylenol, NSAIDs and oxycodone. 24 hours IV antibiotics. Surgical Findings: Right shoulder osteoarthritis, pristine rotator cuff Complications Complications: No Admit VTE Documentation VTE Present on Admission: No VTE Mechan Device Prophylaxis: SCD's VTE Pharm Prophylaxis ordered?: Yes
[2025-10-22] MEDS: LR 1,000 ML - BOLUS POSTOP 999 ML IV (10:21)
--- NOTE | 2025-10-22 10:40 | RAD_ITS ---
PROCEDURE: SHOULDER MIN 2 VIEWS 10/22/2025 REASON FOR EXAM: POST OP Status post right shoulder replacement. TECHNIQUE: Procedure Code: RADSH Modality: DX Procedure: SHOULDER MIN 2 VIEWS Laterality: Right shoulder. COMPARISON: August 04, 2024. FINDINGS: Two views were obtained postoperative. The patient is status post prosthetic replacement of the right humeral head. RAD/Shoulder min 2 Views IMPRESSION: 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 There is good al ignment. Reading Location: [id number]
--- NOTE | 2025-10-22 12:22 | POSTOPAN2_ITS ---
Anesthesia Postop Eval I Sum Postop Eval Completion status Anesthesia document: Postop Eval 1 completed: Yes Anesthesia Postop Eval I Summary Anesthesia Postop Eval I Summary: Anesthesia Postop Eval I: Assessment Summary Airway patent Yes 10/22/25 10:03 GARMENT [email or web address] Spontaneous unlabored Yes 10/22/25 10:03 GARMENT FITTER.SHOF respirations Mental status Awake,Calm 10/22/25 10:03 GARMENT FITTER.SHOF nausea No 10/22/25 10:03 GARMENT FITTER.SHOF Vomiting No 10/22/25 10:03 GARMENT FITTER.SHOF Anesthesia Postop Eval I: Fluid Summary Crystalloid volume administer 800 10/22/25 10:03 GARMENT FITTER.SHOF (ml) Colloids volume administered ( ml) Blood Product volume administered (ml) Total IV fluid infused 800 10/22/25 10:03 GARMENT FITTER.SHOF Anesthesia Postop Eval I: Summary Notes Anesthesia Complication No 10/22/25 10:03 GARMENT FITTER.SHOF Anesthesia Complication Comment: Post-operative progress note Anesthesia: Postop Eval II Evaluation Mental status: Awake and Calm Pain Level: 1 nausea: No Vomiting: No Complications Anesthesia Complication: No
--- NOTE | 2025-10-22 12:22 | PCM.POSTANE2 ---
Anesthesia Postop Eval I Sum Postop Eval Completion status Anesthesia document: Postop Eval 1 completed: Yes Anesthesia Postop Eval I Summary Anesthesia Postop Eval I Summary: Anesthesia Postop Eval I: Assessment Summary Airway patent Yes 10/22/25 10:03 MEDICAL CENTER [email or web address] Spontaneous unlabored Yes 10/22/25 10:03 MEDICAL CENTER MANAGER.SHOF respirations Mental status Awake,Calm 10/22/25 10:03 MEDICAL CENTER MANAGER.SHOF nausea No 10/22/25 10:03 MEDICAL CENTER MANAGER.SHOF Vomiting No 10/22/25 10:03 MEDICAL CENTER MANAGER.SHOF Anesthesia Postop Eval I: Fluid Summary Crystalloid volume administer 800 10/22/25 10:03 MEDICAL CENTER MANAGER.SHOF (ml) Colloids volume administered ( ml) Blood Product volume administered (ml) Total IV fluid infused 800 10/22/25 10:03 MEDICAL CENTER MANAGER.SHOF Anesthesia Postop Eval I: Summary Notes Anesthesia Complication No 10/22/25 10:03 MEDICAL CENTER MANAGER.SHOF Anesthesia Complication Comment: Post-operative progress note Anesthesia: Postop Eval II Evaluation Mental status: Awake and Calm Pain Level: 1 nausea: No Vomiting: No Complications Anesthesia Complication: No
--- NOTE | 2025-10-22 12:51 | PN.HOSP_ITS ---
Subjective Subjective Patient is a 60-year-old gentleman who underwent right shoulder hemiarthroplasty on account of right primary glenohumeral joint osteoarthritis by Dr. Fletcher on 10/22/2025. Hospitalist service was consulted to assist with management of patient medical comorbidities. Objective Data Objective Data Vital Signs: Vital Signs Temp Pulse Resp BP Pulse Ox O2 Del Method O2 Flow Rate 97.0 F L 60 16 105/73 97 Nasal Cannula 3 10/22/25 11:26 10/22/25 11:26 10/22/25 11:26 10/22/25 11:26 10/22/25 11:26 10/22/25 11:26 10/22/25 11: Oxygen Flow Rate (L/min) 3 Oxygen Delivery Method Nasal Cannula Weight: 156.1 kg Body Mass Index (BMI) 44.1 Intake & Output: Intake and Output for Last 24 Hours 10/20/25 10/21/25 10/22/25 23:59 23:59 23:59 Intake Total 2101 Output Total 150 / 150 Balance 1951 Lab / Micro Data 09/26/25 16:51 09/26/25 16:51 Labs: Laboratory Results - last 24 hr 10/22/25 05:58: POC Glucose 138 H 10/22/25 12:16: POC Glucose 137 H Micro: Microbiology 09/26/25 16:51 Swab (Method) Nasal Screen MRSA/MSSA - Final Radiography Diagnostic Testing: Radiology Impression Shoulder X-Ray 10/22/25 10:40 IMPRESSION: 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 There is good alignment. Reading Location: [place] [id number] Physical Exam Narrative GENERAL: cooperative HEENT: Atraumatic; normocephalic EYES; Anicteric, Normal Conjunctiva NECK; supple, normal thyroid, RESPIRATORY: Diminished to auscultation CARDIOVASCULAR: Regular S1 S2, GI: soft, normoactive bowel sounds, : No Renal angle tenderness; EXTREMITIES: No edema, no clubbing, MUSCULOSKELETAL: Right shoulder immobilized, surgical incision CDI NEURO: Awake; no lateralizing signs. SKIN: No Rash PSYCH; Flat affect Assessment & Plan Assessment/Plan (1) Status post right shoulder hemiarthroplasty: PLAN: Plan Patient is a 60-year-old gentleman who underwent right shoulder hemiarthroplasty on account of right primary glenohumeral joint osteoarthritis by Dr. Fletcher on 10/22/2025. Hospitalist service was consulted to assist with management of patient medical comorbidities. 1. Status post right shoulder hemiarthroplasty on account of right primary glenohumeral joint osteoarthritis by Dr. Fletcher on 10/22/2025. Patient postoperative orders regarding PT OT DVT prophylaxis as well as pain management deferred to primary service 2. Paroxysmal A-fib – With previous history of cardioversion patient is on dofetilide did continue 3. Class III obesity with BMI of 44.2 – Complicating care weight loss advised 4. Obstructive sleep apnea – Consistent use of PAP therapy encouraged 5. Hypothyroidism – Patient is on methimazole discontinued home dose 6. DVT prophylaxis – Defer to primary service Time spent in the patient's overall evaluation,decision-making process, review of diagnostic data, adjustment of management, discussion with other providers, nursing nursing and ancillary staff involved in patient's care documentation, 40 Minutes Charges/Coding Visit Charges Inpatient E&M: 03213 Subs Hosp L2
[2025-10-22] MEDS: 0.9% Normal Saline (250mL Bag) 250 ML 15 ML IV (15:43)
[2025-10-22] MEDS: 0.9% Saline Lock 10 ML Syringe IV (15:43)
[2025-10-22] MEDS: Cefazolin 1 GM/50 ML BAG IV ×2 (15:44→23:45)
[2025-10-22] MEDS: Ensure Surgery 237 ML LIQUID PO (17:16)
[2025-10-22] MEDS: Senna/Docusate Sodium 1 Tablet 2 TABLET PO (22:21)
[2025-10-23 04:00] VITALS: BP 143/95; PULSE 66; RESP 16; TEMP 36.1; O2SAT 97
[2025-10-23 06:30] LABS: Hematocrit 40.5 % (40-54); Hemoglobin 13.5 g/dL (13.0-16.5); Mean Corp Hgb Conc 33.3 g/dL (32-36); Mean Corpuscular Volume 85.8 fL (80-94); Mean Platelet Vol. 9.5 fl (6.2-12.0); Platelet Count 298 K/mm3 (150-450); RBC Distribution Width CV 13.0 % (11.6-14.6); RBC Distribution Width SD 40.5 fl (35.1-43.9); Red Blood Count 4.72 M/mm3 (4.6-6.2); White Blood Count 18.4 K/mm3 (4.4-11.0)
[2025-10-23 07:17] LABS: Anion Gap 14 (5-15); BUN 15 mg/dL (4-19); BUN/Creat Ratio 21.6 RATIO (10-20); Calcium,Total 9.1 mg/dL (7.6-11.0); Carbon Dioxide 21.4 mmol/L (21.0-32.0); Chloride 102 mmol/L (98-108); Glucose 128 mg/dL (70-99); Potassium 4.7 mmol/L (3.3-5.1)
[2025-10-23 07:44] VITALS: BP 112/84; PULSE 63; RESP 18; TEMP 36.3; O2SAT 95
[2025-10-23] MEDS: Aspirin E.C. 81 MG Tablet PO (07:58)
[2025-10-23] MEDS: Senna/Docusate Sodium 1 Tablet 2 TABLET PO (07:58)
--- NOTE | 2025-10-23 08:36 | PCM.PN.HOSP ---
Subjective Subjective Patient seen pain in right shoulder tolerable. Plan is for patient to be discharged home by primary service–Ortho Objective Data Objective Data Vital Signs: Vital Signs Temp Pulse Resp BP Pulse Ox O2 Del Method O2 Flow Rate 97.4 F L 63 18 112/84 H 95 Room Air 3 10/23/25 07:44 10/23/25 07:44 10/23/25 07:44 10/23/25 07:44 10/23/25 07:44 10/23/25 07:44 10/22/25 11:26 Oxygen Flow Rate (L/min) 3 Oxygen Delivery Method Room Air Weight: 156.1 kg Body Mass Index (BMI) 44.1 Intake & Output: Intake and Output for Last 24 Hours 10/21/25 10/22/25 10/23/25 23:59 23:59 23:59 Intake Total 3802 / 4102 590 / 590 Output Total 150 / 450 1850 / 1850 Balance 3652 / 3652 -1260 / -1260 Lab / Micro Data 10/23/25 05:40 10/23/25 05:40 Labs: Laboratory Results - last 24 hr 10/22/25 12:16: POC Glucose 137 H 10/23/25 05:40: WBC 18.4 H, RBC 4.72, Hgb 13.5, Hct 40.5, MCV 85.8, MCH 28.6, MCHC 33.3, RDW Std Deviation 40.5, RDW Coeff of Inna 13.0, Plt Count 298, MPV 9.5, Sodium 138, Potassium 4.7, Chloride 102, Carbon Dioxide 21.4, Anion Gap 14, BUN 15, Creatinine 0.68 L, Estim Creat Clear Calc 187.18, Est GFR (MDRD) Non-Af 108, BUN/Creatinine Ratio 21.6 H, Glucose 128 H, Calcium 9.1 Micro: Microbiology 09/26/25 16:51 Swab (Method) Nasal Screen MRSA/MSSA - Final Radiography Diagnostic Testing: Radiology Impression Shoulder X-Ray 10/22/25 10:40 IMPRESSION: 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 There is good alignment. Reading Location: [facility] Physical Exam Narrative GENERAL: cooperative HEENT: Atraumatic; normocephalic EYES; Anicteric, Normal Conjunctiva NECK; supple, normal thyroid, RESPIRATORY: Diminished to auscultation CARDIOVASCULAR: Regular S1 S2, GI: soft, normoactive bowel sounds, : No Renal angle tenderness; EXTREMITIES: No edema, no clubbing, MUSCULOSKELETAL: Right shoulder immobilized, surgical incision CDI NEURO: Awake; no lateralizing signs. SKIN: No Rash PSYCH; Flat affect Assessment & Plan Assessment/Plan (1) Status post right shoulder hemiarthroplasty: PLAN: Plan Patient is a 60-year-old gentleman who underwent right shoulder hemiarthroplasty on account of right primary glenohumeral joint osteoarthritis by Dr. Fletcher on 10/22/2025. Hospitalist service was consulted to assist with management of patient medical comorbidities. 1. Status post right shoulder hemiarthroplasty on account of right primary glenohumeral joint osteoarthritis by Dr. Fletcher on 10/22/2025. Patient postoperative orders regarding PT OT DVT prophylaxis as well as pain management deferred to primary service – 10/23/2025; patient pain is tolerable 2. Paroxysmal A-fib – With previous history of cardioversion patient is on dofetilide did continue 3. Class III obesity with BMI of 44.2 – Complicating care weight loss advised 4. Obstructive sleep apnea – Consistent use of PAP therapy encouraged 5. Hypothyroidism – Patient is on methimazole discontinued home dose 6. DVT prophylaxis – Defer to primary service Time spent in the patient's overall evaluation,decision-making process, review of diagnostic data, adjustment of management, discussion with other providers, nursing nursing and ancillary staff involved in patient's care documentation, 35 Minutes Charges/Coding Visit Charges Inpatient E&M: 23961 Subs Hosp L2
--- NOTE | 2025-10-23 08:48 | PCM.DC.SUM ---
Providers Date of Admission: 10/22/25 Date of Discharge: 10/23/25 Primary Care Physician: Dr. Sumit Banda MD Consultations 10/22/25 09:59 Consult: Hospitalist Routine Consulting Provider: Meir Muñoz Reason for Consult: medical management s/p R shoulder hemiarthroplasty EMERGENT Consult: No MD Notified: Yes Date Notified: 10/22/25 Time Notified: 09:59 Method of Notification: Text Reason For Visit: ERAS, RIGHT SHOULDER HEMIARTHROPLASTY Diagnosis Discharge Diagnosis (1) Status post right shoulder hemiarthroplasty: Status: Acute Code(s): Z96.611 - Presence of right artificial shoulder joint Plan: 1. Will continue PT today. Sling at all times. Nonweightbearing to right upper extremity. No external rotation beyond 30 degrees 2. plan for discharge this afternoon following PT 3. Patient will follow up for post op appointment as previously scheduled 4. Patient has outpatient PT appointment in 2 weeks as previously scheduled 5. WBC 18.4 acute reactive leukocytosis: secondary to pre operative decadron. no acute systemic signs of infection. will monitor, and likely self resolve. 6. H/H 13.5/40.5: post operavtive anemia secondary to acute blood loss intraoperatively. Patient is asymptomatic at this time. No intraoperative complications. will continue to monitor. no acute interventions. 7. DVT prophylaxis : Aspirin 81 mg twice daily x 2 weeks 8. Pain control: patient instructed to take tylenol 500mg 2 tablets TID. and oxycodone 1-2 tablets every 4-6 hours only as needed for pain control. 9. Patient also given a prescription of meloxicam doxycycline 100 mg twice daily x 1 week for prophylaxis due to BMI 10. ok to remove post op dressing. post op day 7 Medications at Discharge Home Medications aspirin 81 mg tablet,delayed release (Adult Aspirin Regimen) 81 mg PO DAILY 02/28/19 Held on 10/23/25. Instructions: Resume on 11/06/25. dofetilide 500 mcg capsule 500 mcg PO BID #180 caps 10/12/19 methimazole 5 mg tablet 2.5 mg PO DAILY 02/17/24 coenzyme Q10 1 tab PO QDAY 04/13/25 krill oil 1 cap PO QDAY 04/13/25 magnesium glycinate 3 tab PO QDAY 04/13/25 metoprolol tartrate 25 mg tablet 25 mg PO BID PRN HEART RACING 04/13/25 omega-3 fatty acids 1 cap PO QDAY 04/13/25 vitamin B complex 1 tab PO QDAY 04/13/25 turmeric 400 mg capsule 400 mg PO DAILY 09/25/25 vitamin E 268 mg (400 unit) capsule 268 mg PO BID 09/25/25 acetaminophen 500 mg tablet 1,000 mg (2 x 500 mg) PO Q8 #180 tabs 10/23/25 aspirin 81 mg tablet,delayed release 81 mg PO BID 14 days #28 tabs 10/23/25 doxycycline hyclate 100 mg tablet 100 mg PO BID 7 days #14 tabs 10/23/25 famotidine 20 mg tablet 20 mg PO DAILY #30 tabs 10/23/25 meloxicam 7.5 mg tablet 7.5 mg PO BID 4 weeks #56 tabs 10/23/25 sennosides 8.6 mg-docusate sodium 50 mg tablet (Stimulant Laxative Plus) 2 tab PO BID #14 tabs 10/23/25 tramadol 50 mg tablet 50 - 100 mg (1 - 2 x 50 mg) PO .q4-6hrs prn PRN pain #10 tabs 10/23/25 Hospital Course Operations - (right shoulder hemiarthroplasty) Summary of Care Provided Hospital Course: Patient is status post right shoulder hemiarthroplasty with Dr. Fletcher 10/22/2025.. Patient resting comfortably in bed. Rates pain 2 /10. States taking Tylenol and oxycodone as needed and ice help to relieve pain. Patient has been up with therapy. Sling at all times right upper extremity. Nonweightbearing right upper extremity. Afebrile, no chest pain, shortness of breath, negative calf pain/ erythema, and no other signs of DVT. Physical Exam Narrative Patient resting comfortably in bed Sling in place No signs of acute distress Satting well on room air Limb is warm to touch, Sensation intact throughout entire upper extremity, Motor intact to radial, median, ulnar nerve distribution Radial pulses bounding Dressing clean dry intact Calf nontender to palpation, no erythema, no edema. Negative Homans Weight / BMI Weight Weight: 156.1 kg Body Mass Index (BMI) 44.1 ABG / Lab / Microbiology Data 10/23/25 05:40 10/23/25 05:40 Laboratory: Laboratory Results - last 24 hr 10/22/25 12:16: POC Glucose 137 H 10/23/25 05:40: WBC 18.4 H, RBC 4.72, Hgb 13.5, Hct 40.5, MCV 85.8, MCH 28.6, MCHC 33.3, RDW Std Deviation 40.5, RDW Coeff of Inna 13.0, Plt Count 298, MPV 9.5, Sodium 138, Potassium 4.7, Chloride 102, Carbon Dioxide 21.4, Anion Gap 14, BUN 15, Creatinine 0.68 L, Estim Creat Clear Calc 187.18, Est GFR (MDRD) Non-Af 108, BUN/Creatinine Ratio 21.6 H, Glucose 128 H, Calcium 9.1 Microbiology: Microbiology 09/26/25 16:51 Swab (Method) Nasal Screen MRSA/MSSA - Final Radiography Diagnostic Testing: Radiology Impression Shoulder X-Ray 10/22/25 10:40 IMPRESSION: 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 There is good alignment. Reading Location: [facility] D/C Instructions Discharge Activity: May Shower and - (sling at all times. Nonweightbearing right upper extremity. ) Weight Bearing Status: No weight bearing (right upper. sling at all times) Call your doctor if your incision/area has: Continuous Slow Oozing, Sudden Increased Bleeding, Increased Pain/ Swelling, Increased Redness, Foul Smelling Discharge and Swelling at the incision site Call your doctor if you observe: Fever of 101 or Higher, Inability to urinate, Inability to have a bowel movement, Dizziness, Swelling in the ankles, Chest pain, Calf discomfort and Uncontrolled pain Remove Dressing in: 1 week Cleanse incision/area with: Soap & Water and Keep Dressing Clean & Dry DC O2, CPAP, BIPAP Needs Home O2 Discharge instructions: No DC home with Oxygen: No When: in 2 weeks with [facility] as previously scheduled. Meaningful Use Info Meaningful Use Meaningful Use Diagnoses (Choose all that apply): None applicable Discharge Plan Admission Admit Date/Time: 10/22/25 09:55 Attending Provider: Abhay Fletcher Primary Care Provider: Sumit Banda Consulting Providers: Luis Miguel Jain; Meir Muñoz; Abhay Fletcher Discharge Orders/Prescriptions Prescriptions: New acetaminophen 500 mg Tablet 1,000 mg PO Q8 Qty: 180 0RF aspirin 81 mg Tablet,Delayed Release (Dr/Ec) 81 mg PO BID 14 Days Qty: 28 0RF famotidine 20 mg Tablet 20 mg PO DAILY Qty: 30 0RF meloxicam 7.5 mg Tablet 7.5 mg PO BID 28 Days Qty: 56 0RF sennosides-docusate sodium [Stimulant Laxative Plus] 8.6-50 mg Tablet 2 tab PO BID Qty: 14 0RF doxycycline hyclate 100 mg tablet 100 mg PO BID 7 Days Qty: 14 0RF tramadol 50 mg tablet 50 - 100 mg PO .q4-6hrs prn PRN (Reason: pain) Qty: 10 0RF Continued dofetilide 500 mcg capsule 500 mcg PO BID Qty: 180 metoprolol tartrate 25 mg tablet 25 mg PO BID PRN (Reason: HEART RACING) coenzyme Q10 [CoQ-10] 1 tab PO QDAY krill oil 1 cap PO QDAY magnesium glycinate 3 tab PO QDAY omega-3 fatty acids [Fish Oil] 1 cap PO QDAY vitamin B complex [B Complex Super] 1 tab PO QDAY methimazole 5 mg tablet 2.5 mg PO DAILY vitamin E 268 mg (400 unit) capsule 268 mg PO BID turmeric 400 mg capsule 400 mg PO DAILY Held aspirin [Adult Aspirin Regimen] 81 mg tablet,delayed release (DR/EC) 81 mg PO DAILY Hold Instructions: Resume on 11/06/25. Referrals / Follow Up: Sumit Banda MD [Primary Care Provider, Family Practice] Disposition Disposition (needs filled in before D/C Order can be placed): Home, Self Care
--- NOTE | 2025-10-23 11:31 | CASEMGMT ---
RUMA CM into pt room, pt sitting up in chair dressed and wanting to dc. Pt at bedside. Pt is up without device. Pt is able to assist pt as needed. Pt denies any homegoing needs. Pt has an appt set up for post op with and therapy planned for after per his report.
== END 2025-10-23 12:39 | disposition home or self-care (01) ==
LOC: SDC 10:05 → MS3 10:05
PROVIDERS: Anesthesiology; Admitting Provider Student in an Organized Health Care Education/Training Program; PCP Family Medicine; Referring Provider Student in an Organized Health Care Education/Training Program; Visit Provider Student in an Organized Health Care Education/Training Program
PROC: (CPT 23472; principal; 2025-10-22 07:00)
DX: M19.011 Primary osteoarthritis, right shoulder (principal); I48.0 Paroxysmal atrial fibrillation; E66.813 Obesity, class 3; Z68.41 Body mass index [BMI] 40.0-44.9, adult; F17.220 Nicotine dependence, chewing tobacco, uncomplicated; Z79.899 Other long term (current) drug therapy; Z79.82 Long term (current) use of aspirin; G47.33 Obstructive sleep apnea (adult) (pediatric); E03.9 Hypothyroidism, unspecified
CPT/HCPCS: 23470; 01630; 36415; 73030; 80048; 82040; 82962; 83735; 84443; 85025; 85027; 87077; 87081; 94668; 96365; 96366; 97110; 97166; 97535; 97802; 99221; C1776; A4216; G0378; J2405; J3475